=== PATIENT | female | born 1935 | race American Indian/Alaskan Native ===

== ENCOUNTER 2020-11-09 16:46 | Inpatient (IN) | payer MEDICARE ==
[2020-11-09] MEDS ORDERED: LIP THERAPY VASELINE TP PRN (17:08)
[2020-11-09] MEDS ORDERED: MINERAL OIL/PETROLATUM, WHITE OPHTH OINT 3.5 GM OU PRN (17:08)
--- NOTE | 2020-11-09 17:14 | Emergency Department Report ---
ED CPR HPI - General Chief Complaint: Cardiac Arrest/CPR Stated Complaint: CARDIAC ARREST Time Seen by Provider: 11/09/20 17:06 Source: EMS - History of Present Illness Initial Comments: Patient is 84 years old female with history of hypertension, chronic kidney disease and chronic right bundle branch block and arthritis. Patient brought to the emergency room via EMS from a [facility] office for evaluation of shortness of breath and difficulty breathing. EMS stated that patient was talking to them but she is really short of breath. EMS stated that upon arrival to the ER patient became unresponsive and started positive pressure ventilation on her. Upon arrival to the ER, I checked patient pulse and there is no pulse. CODE BLUE immediately initiated. ACLS protocol initiated and patient intubated by me. Patient received multiple rounds of CPR, epinephrine, calcium chloride and bicarb. Blood glucose was 158 by EMS. Patient regained her pulse. For further information please refer to code sheets. Labs reviewed and showed elevated lactic acid. EKG showed A. fib with heart rate of 109. CT brain is unremarkable. D-dimer is more than 10,000. CT brain is negative for acute finding. CTA chest showed bilateral segmental and subsegmental emboli with a right heart strain. I discussed the patient with Dr. Delong, vascular on-call. Dr. Delong reviewed images and stated that he will take the patient to the cardiac cath for direct thrombolytic. I discussed the patient with Dr. Godwin, he agreed to admit the patient to medical service for further management. Complaint: stopped breathing Bystander CPR Performed: No Initial Findings in the Field: unresponsive ROSC in the Field: No Associated Injuries: No Associated Symptoms: shortness of breath - Related Data Allergies Allergy/AdvReac Type Severity Reaction Status Date / Time No Known Allergies Allergy Verified 11/09/20 17:19 ED Review of Systems ROS: Stated complaint: CARDIAC ARREST Other details as noted in HPI Comment: Unobtainable due to pts medical conditions ED Physical Exam - General General appearance: other (Unresponsive, CPR in progress.) - Head Head exam: Present: atraumatic, normocephalic, normal inspection - Eye Pupils: Present: other (4 mm, dilated and slightly reactive to light.) - ENT ENT exam: Present: normal exam, mucous membranes moist - Neck Neck exam: Present: normal inspection - Respiratory Respiratory exam: Present: other (No spontaneous respiration.) - Cardiovascular Cardiovascular Exam: Present: other (No spontaneous heart tone.) - GI/Abdominal GI/Abdominal exam: Present: soft, normal bowel sounds. Absent: distended - Extremities Exam Extremities exam: Present: normal inspection - Neurological Exam Neurological exam: Present: other (Intubated.) - Skin Skin exam: Present: warm ED Course Vital Signs 11/09/20 11/09/20 11/09/20 17:14 17:16 17:30 Pulse Rate 121 H 104 H 68 Respiratory 10 L 14 18 Rate Blood Pressure 108/79 109/61 O2 Sat by Pulse Oximetry 11/09/20 11/09/20 11/09/20 17:37 18:16 18:31 Pulse Rate 70 109 H Respiratory 38 H Rate Blood Pressure 98/52 108/79 82/41 O2 Sat by Pulse 95 100 100 Oximetry 11/09/20 11/09/20 11/09/20 18:45 19:01 19:15 Pulse Rate 103 H 114 H 117 H Respiratory 26 H 24 25 H Rate Blood Pressure 108/66 96/59 110/55 O2 Sat by Pulse 100 100 100 Oximetry 11/09/20 11/09/20 11/09/20 19:31 19:45 19:59 Pulse Rate 113 H 114 H 72 Respiratory 23 29 H Rate Blood Pressure 100/58 114/51 95/51 O2 Sat by Pulse 100 100 100 Oximetry 11/09/20 11/09/20 11/09/20 20:01 20:15 20:31 Pulse Rate 113 H 123 H 112 H Respiratory 23 38 H 21 Rate Blood Pressure 105/61 105/35 102/53 O2 Sat by Pulse 100 100 100 Oximetry 11/09/20 11/09/20 11/09/20 20:45 21:01 21:15 Pulse Rate 116 H 110 H 107 H Respiratory 18 19 25 H Rate Blood Pressure 99/47 89/47 98/43 O2 Sat by Pulse 100 100 100 Oximetry - Reevaluation(s) Reevaluation #1: 11/09/20 17:18 Patient intubated. EKG showed atrial fibrillation with heart rate of 102. Oxygen saturations 100%. Blood pressure is 108/78. We will continue to monitor. Reevaluation #2: 11/09/20 17:59 Patient started waking up and fighting. Restraint had to be applied. Patient blood pressure still on the 74/42. Patient is receiving both Levophed and dopamine. Patient is getting her propofol for sedation. - Central Line Placement Right Femoral Consent Obtained: emergent situation Time Out Performed: Yes Patient Placed on Monitor/Pulse Ox: Yes MD Prep: mask, gown, gloves Central Line Prep: Povidone-Iodine 1%, Chlorhexidine scrub, sterile drapes applied Local Anesthesia Used: Lidocaine 2% Central Line Lumen Inserted: triple Reason for Insertion: Volume Resuscitation Central Line Position: good blood return, all ports aspirated, flus, sutured in place with 2-0 Dressing Applied: Tegaderm, sterile gauze/tape Patient Tolerated Procedure: well, no complications Complications: none - Intubation Time Out Performed: Yes Laryngoscope: Macario Size: 4 ET Tube Size: 7 Tube Secured Location: teeth Tube Placement Confirmation: visualized tube passing t, equal breath sounds bilat, no breath sounds over epi, confirmation by capnometr Patient Tolerated Procedure: well, no complications Intubation Complications: none ED Medical Decision Making - Lab Data Result diagrams: 11/09/20 17:24 11/09/20 17:24 - EKG Data -: EKG Interpreted by Me Rate: tachycardia - EKG Data Interpretation: no acute changes - Radiology Data Radiology results: report reviewed - Medical Decision Making Patient is 84 years old female with history of hypertension, chronic kidney disease and chronic right bundle branch block and arthritis. Patient brought to the emergency room via EMS from a [facility] office for evaluation of shortness of breath and difficulty breathing. EMS stated that patient was talking to them but she is really short of breath. EMS stated that upon arrival to the ER patient became unresponsive and started positive pressure ventilation on her. Upon arrival to the ER, I checked patient pulse and there is no pulse. CODE BLUE immediately initiated. ACLS protocol initiated and patient intubated by me. Patient received multiple rounds of CPR, epinephrine, calcium chloride and bicarb. Blood glucose was 158 by EMS. Patient regained her pulse. For further information please refer to code sheets. Labs reviewed and showed elevated lactic acid. EKG showed A. fib with heart rate of 109. CT brain is unremarkable. D-dimer is more than 10,000. CT brain is negative for acute finding. CTA chest showed bilateral segmental and subs egmental emboli with a right heart strain. I discussed the patient with Dr. Delong, vascular on-call. Dr. Delong reviewed images and stated that he will take the patient to the cardiac cath for direct thrombolytic. I discussed the patient with Dr. Caldwell from [facility], he advised to ke ep the patient in [facility] for further management. I discussed the patient with Dr. Godwin, he agreed to admit the patient to medical service for further management. Critical Care Time: Yes Critical care time in (mins) excluding proc time.: 60 Critical care attestation.: If time is entered above; I have spent that time in minutes in the direct care of this critically ill patient, excluding procedure time. ED Disposition Clinical Impression: Cardiopulmonary arrest, Acute pulmonary embolism with acute cor pulmonale, Bilateral pneumonia Disposition: ADMITTED INPATIENT Is pt being admited?: No Condition: Stable Instructions: Bacterial Pneumonia (ED) Referrals: JAVIER LOPEZ [Other] - 3-5 Days
[2020-11-09] MEDS ORDERED: DOPamine/D5W 800 MG/250 ML 800 MG/250 ML BAG IV ONE ×2 (17:31→17:48)
[2020-11-09] MEDS ORDERED: NORepinephrine/NS 4 MG-250 ML 4 MG/250 ML BAG IV ONE (17:41)
[2020-11-09] MEDS ORDERED: SODIUM CHLORIDE 0.9% 1000 ML 1,000 ML IV ONE ×2 (17:47→20:51)
[2020-11-09 17:56] LABS: Basophils # (Auto) 0.1 K/mm3 (0.0-0.1); Basophils % (Auto) 1.3 % (0.0-1.8); Eosinophils # (Auto) 0.1 K/mm3 (0.0-0.4); Eosinophils % (Auto) 1.1 % (0.0-4.3); Hemoglobin 10.3 gm/dl (10.1-14.3); Lymphocytes # (Auto) 3.7 K/mm3 (1.2-5.4); Lymphocytes % (Auto) 54.6 % (13.4-35.0); Mean Corpuscular HGB Conc 32 % (30-34); Mean Corpuscular Volume 97 fl (79-97); Monocytes # (Auto) 0.3 K/mm3 (0.0-0.8); Monocytes % (Auto) 4.5 % (0.0-7.3); Platelet Count 100 K/mm3 (140-440); Red Blood Count 3.29 M/mm3 (3.65-5.03)
[2020-11-09] MEDS ORDERED: fentaNYL DRIP Premix 2,000 MCG/100 ML BAG IV ONE (18:00)
[2020-11-09 18:04] LABS: Calcium 9.4 mg/dL (8.4-10.2)
[2020-11-09 18:05] LABS: Alanine Aminotransferase 273 units/L (7-56); Albumin 2.8 g/dL (3.9-5); Bilirubin,Direct < 0.2 mg/dL (0-0.2)
[2020-11-09 18:11] LABS: INR 1.64 (0.87-1.13)
[2020-11-09 18:13] LABS: Partial Thromboplastin Time 49.2 Sec. (24.2-36.6)
[2020-11-09 18:19] LABS: Chol/HDL Ratio 4.06 %
[2020-11-09] MEDS ORDERED: INSULIN REGULAR, HUMAN 100 UNITS/1 ML IV ONE (18:21)
[2020-11-09] MEDS ORDERED: SODIUM BICARB 8.4% 50 MEQ/50 ML SYRINGE IV ONE (19:06)
[2020-11-09] MEDS ORDERED: POTASSIUM CHLORIDE 10 MEQ 10 MEQ/100 ML BAG IV SCH (19:30)
[2020-11-09 19:33] LABS: Bacteria,Urine 1+ /HPF (Negative); Bilirubin,Urine NEG (Negative); Blood,Urine MOD (Negative); Color,Urine Straw (Yellow); Protein,Urine <15 mg/dL mg/dL (Negative); Urobilinogen,Urine < 2.0 mg/dL (<2.0)
[2020-11-09 19:39] LABS: Amphetamine Screen,Urine Negative; Benzodiazepines Screen,Urine Negative; Cannabinoid Screen,Urine Negative; Cocaine Screen,Urine Negative; Methadone Screen,Urine Negative; Opiate Screen,Urine Negative
[2020-11-09 20:45] LABS: Creatine Kinase MB 14.2 ng/mL (0.0-4.0)
[2020-11-09] MEDS ORDERED: FAMOTIDINE 20 MG/2 ML INJ IV SCH (22:00)
--- NOTE | 2020-11-09 22:01 | Cat Scan Report ---
CT HEAD WITHOUT CONTRAST INDICATION / CLINICAL INFORMATION: AMS. TECHNIQUE: All CT scans at this location are performed using CT dose reduction for ALARA by means of automated exposure control. COMPARISON: None available. FINDINGS: BRAIN PARENCHYMA: No acute intracranial hemorrhage. No evidence of recent infarct. No mass effect or midline shift. White matter chronic small vessel ischemic changes. VENTRICULAR SYSTEM/EXTRA-AXIAL SPACES: Ventricles are normal for age. No extra-axial fluid collection is identified. There is a focal ovoid extra-axial soft tissue density along the anterior right front al lobe near the falx, likely reflecting meningioma. ORBITS: Normal as visualized. SKELETAL SYSTEM/SOFT TISSUES: Normal bones and soft tissues. PARANASAL SINUSES/MASTOID AIR CELLS: No significant abnormality. ADDITIONAL FINDINGS: None. IMPRESSION: 1. No acute intracranial abnormality. 2. Probable meningioma along the right anterior frontal lobe. Signer Name: Rowdy Nguyen MD Signed: 11/09/2020 9:56 PM Workstation Name: [id number]
--- NOTE | 2020-11-09 22:16 | Cat Scan Report ---
CT abdomen pelvis w con INDICATION / CLINICAL INFORMATION: abdominal pain. TECHNIQUE: Axial CT images were obtained through the abdomen and pelvis after 100 cc of Omnipaque [address] scans at this location are performed using CT dose reduction for ALARA by means of automated exposure control. COMPARISON: None available. FINDINGS: LOWER CHEST: Detailed separately LIVER: No significant abnormality GALLBLADDER/BILIARY TREE: The wall of the gallbladder is calcified at the fundus with large gallstone at the neck of the gallbladder. There is inflammatory stranding and fluid about the gallbladder valentin a. The common bile duct is dilated, measuring 1 cm. No discrete biliary duct stone or mass identified . PANCREAS: There is mild peripancreatic inflammatory stranding about the pancreatic head and neck. No organized collection. SPLEEN: No significant abnormality ADRENALS: No significant abnormality KIDNEYS / URETER: No significant abnormality URINARY BLADDER: Bladder is partially decompressed, though grossly unremarkable. REPRODUCTIVE ORGANS: Calcified uterine fibroids. STOMACH / BOWEL: Scattered nondilated fluid-filled small bowel seen throughout the abdomen and pelvis , suggestive of enteritis. There is no evidence of bowel obstruction. Scattered colonic diverticula w ithout evidence of diverticulitis. Moderate stool distends the rectal vault without wall thickening. The appendix is normal in caliber. LYMPH NODES: No significant adenopathy. VASCULATURE: Right iliac vein catheter terminates in the external iliac vein. OTHER: No free air, free fluid, or focal fluid collection is identified. Enteric catheter terminates in the stomach. SKELETAL SYSTEM: No acute osseous findings. IMPRESSION: 1. Scattered nondilated fluid-filled small bowel in the abdomen, consistent with infectious or inflam matory enteritis. 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 Mild inflammatory changes about the gallbladder may reflect cholecystitis. Recommend correlation with right upper quadrant ultrasound. No nspecific mild bile duct dilatation without discrete obstructing stone or mass. Further evaluation wi th MRI/MRCP may be helpful. 3. Moderate stool distends the rectal vault without wall thickening. Correlate for fecal impaction. 4. Other incidental findings as above. Signer Name: Rowdy Nguyen MD Signed: 11/09/2020 10:11 PM Workstation Name: [id number]
--- NOTE | 2020-11-09 22:17 | Cat Scan Report ---
CTA CHEST WITH CONTRAST INDICATION / CLINICAL INFORMATION: CPR, ELEVATED D-DIMER. TECHNIQUE: Axial CT images were obtained through the chest after injection of 100 cc Omnipaque 350 IV contrast. 3 plane MIP and/or 3D reconstructions were produced. All CT scans at this location are per formed using CT dose reduction for ALARA by means of automated exposure control. COMPARISON: None available. FINDINGS: PULMONARY ARTERIES: Acute bilateral segmental and subsegmental pulmonary emboli are present. THORACIC AORTA: No significant abnormality. HEART: There is cardiac enlargement. No pericardial effusion. There is evidence of right heart failur e. RV/LV ratio is increased. ADENOPATHY: Mediastinal lymph nodes are likely reactive. LUNGS/PLEURA: Trace right pleural effusion. There are prominent airspace consolidation involving bila teral lung bases with patchy groundglass opacities and consolidation involving the right middle lobe and right upper lobe. No pneumothorax. ADDITIONAL FINDINGS: Endotracheal tube terminates above the cherie. UPPER ABDOMEN: Detailed separately. SKELETAL STRUCTURES: No significant osseous abnormality. IMPRESSION: 1. Acute bilateral segmental and subsegmental pulmonary emboli with evidence of right heart failure. 2. Bibasilar airspace consolidation and trace right pleural effusion, compatible with pneumonia. 3. Endotracheal tube terminates above the cherie. Findings were discussed with Dr. Junior by phone on 11/09/2020 at 9:12 PM Signer Name: Rowdy Nguyen MD Signed: 11/09/2020 10:12 PM Workstation Name: [id number]
[2020-11-09] MEDS ORDERED: PIPERACILLIN/TAZOBACTAM 3.375 3.375 GM/50 ML BAG IV ONE (22:25)
[2020-11-09] MEDS ORDERED: HEPARIN 10,000 UNITS/10 ML VIAL IV ONE (22:26)
[2020-11-09] MEDS ORDERED: fentaNYL 100 MCG/2 ML INJ IV PRN (22:37)
[2020-11-09] MEDS ORDERED: HEPARIN/ 0.45% NACL DRIP 25,000 UNIT/500 ML BAG IV SCH (23:00)
--- NOTE | 2020-11-09 23:06 | XRay Report ---
CHEST 1 VIEW INDICATION / CLINICAL INFORMATION: chest pain. FINDINGS: SUPPORT DEVICES: The endotracheal tube terminates about 5 cm above the cherie and the esophagogastric tube terminates in the region of the stomach. HEART / MEDIASTINUM: The cardiomediastinal silhouette has not significantly changed in the interim. LUNGS / PLEURA: Faint ill-defined bibasilar opacities no pneumothorax. Signer Name: Leobardo Holloway MD Signed: 11/09/2020 11:02 PM Workstation Name: [id number]
[2020-11-09] MEDS ORDERED: MORPHINE 2 MG/1 ML INJ IV PRN (23:07)
[2020-11-09] MEDS ORDERED: ONDANSETRON 4 MG/2 ML INJ IV PRN (23:07)
[2020-11-09] MEDS ORDERED: MORPHINE 4 MG/1 ML INJ IV PRN ×2 (23:07→23:59)
[2020-11-09] MEDS ORDERED: ACETAMINOPHEN 650 MG RECT SUPP PR PRN (23:07)
[2020-11-09] MEDS ORDERED: MAGNESIUM HYDROXIDE (MOM) ORAL LIQD UDC PO PRN (23:07)
[2020-11-09] MEDS: fentaNYL DRIP Premix 2,000 MCG/100 ML BAG IV SCH (23:08)
[2020-11-09] MEDS ORDERED: SODIUM CHLORIDE 0.9% 1000 ML 1,000 ML IV SCH ×2 (23:15→23:45)
--- NOTE | 2020-11-09 23:20 | History and Physical Report ---
History of Present Illness Date of examination: 11/09/20 Date of admission: 11/09/2020 Chief complaint: Difficulty Breathing History of present illness: 84-year-old female with known history of hypertension, chronic kidney disease, chronic right bundle branch block and arthritis was brought into the emergency room today via EMS from a [facility] office for evaluation of difficulty breathing and shortness of breath. [facility] and a positive pressure ventilation was started. Patient became pulseless and a CODE BLUE was initiated. She received multiple rounds of epinephrine, calcium chloride and sodium bicarb. There was return of spontaneous circulation. Blood glucose was said to be 158. Most of the history was gotten from the ER staff as patient is already intubated and sedated. Work-up in the emergency room today reveals D-dimer of greater than 10,000, elevated lactic acid. CT angiogram shows bilateral segmental and subsegmental emboli with right heart strain. There is also bibasilar airspace consolidation and trace right pleural effusion compatible with pneumonia. Vascular surgeon Dr. Delong was consulted by the ER physician and plan was to have patient transferred to the [facility] for possible thrombolytics. Past History Past Medical History: arthritis, hypertension, renal failure, other (Chronic Right Bundle Branch Block) Past Surgical History: No surgical history Social history: no significant social history Medications and Allergies Allergies Allergy/AdvReac Type Severity Reaction Status Date / Time No Known Allergies Allergy Verified 11/09/20 17:19 Active Meds: Active Medications Acetaminophen (Acetaminophen 650 Mg Rect Supp) 650 mg AK Q6H PRN PRN Reason: Pain MILD(1-3)/Fever >100.5/REYES Famotidine (Famotidine 20 Mg/2 Ml Inj) 20 mg IV BID [facility] Last Admin: 11/09/20 22:47 Dose: 20 mg Documented by: Fentanyl (Fentanyl 100 Mcg/2 Ml Inj) 50 mcg IV Q10MIN PRN PRN Reason: ANALGESIA Hydrophilic Ointment (Lip Therapy Vaseline) 1 applic TP Q2H PRN PRN Reason: Dry Lips Propofol (Diprivan 10 Mg/Ml) 1,000 mg in 100 mls @ 2.245 mls/hr IV TITR MELONY; Protocol Last Admin: 11/09/20 20:06 Dose: 20 mcg/kg/min, 8.981 mls/hr Documented by: NORepinephrine/NS 8 MG-250 ML (Norepinephrine/Ns 8 Mg-250 Ml (Double Conc)) 8 mg in 250 mls @ 3.75 mls/hr IV TITRATE MELONY; Protocol Dopamine HCl/Dextrose (Intropin Drip 800 Mg/D5w 250 Ml) 800 mg in 250 mls @ 2.807 mls/hr IV TITR ONE; Protocol Stop: 11/13/20 10:51 Last Admin: 11/09/20 22:12 Dose: 2 mcg/kg/min, 2.807 mls/hr Documented by: Heparin Sodium/Sodium Chloride (Heparin/ 0.45% Nacl-25,000 Unit/500 Ml) 25,000 unit in 500 mls @ 21 mls/hr IV TITR MELONY; Protocol Last Admin: 11/09/20 23:06 Dose: 1,050 units/hr, 21 mls/hr Documented by: Fentanyl Citrate (Fentanyl Drip Premix) 2,000 mcg in 100 mls @ 11.226 mls/hr IV TITR MELONY; Protocol Last Admin: 11/09/20 23:08 Dose: 3 mcg/kg/hr, 11.226 mls/hr Documented by: Sodium Chloride (Nacl 0.9% 1000 Ml) 1,000 mls @ 75 mls/hr IV DIRECT MELONY Ceftriaxone Sodium (Rocephin/Ns 2 Gm/100 Ml) 2 gm in 100 mls @ 200 mls/hr IV Q24H MELONY; Protocol Azithromycin (Zithromax/Ns) 500 mg in 250 mls @ 250 mls/hr IV Q24H MELONY; Protocol Magnesium Hydroxide (Magnesium Hydroxide (Mom) Oral Liqd Udc) 30 ml PO Q4H PRN PRN Reason: Constipation Morphine Sulfate (Morphine 2 Mg/1 Ml Inj) 2 mg IV Q4H PRN PRN Reason: Pain, Moderate (4-6) Morphine Sulfate (Morphine 4 Mg/1 Ml Inj) 4 mg IV Q4H PRN PRN Reason: Pain , Severe (7-10) Multi-Ingred Cream/Lotion/Oil/Oint (Mineral Oil/Petrolatum, White Ophth Oint 3.5 Gm) 1 applic OU Q4H PRN PRN Reason: Dry Eye(s) Ondansetron HCl (Ondansetron 4 Mg/2 Ml Inj) 4 mg IV Q8H PRN PRN Reason: Nausea And Vomiting Senna/Docusate Sodium (Sennosides/Docusate Sodium 8.6/50 Mg Tab) 1 tab FEEDTUBE BID MELONY Sodium Chloride (Sodium Chloride 0.9% 10 Ml Flush Syringe) 10 ml IV BID MELONY Sodium Chloride (Sodium Chloride 0.9% 10 Ml Flush Syringe) 10 ml IV PRN PRN PRN Reason: LINE FLUSH Review of Systems ROS unobtainable: due to endotracheal tube Exam - Constitutional Vitals: Temp Pulse Resp BP Pulse Ox 107 H 25 H 98/43 100 11/09/20 21:15 11/09/20 21:15 11/09/20 21:15 11/09/20 21:15 General appearance: Present: other (Intubated and Sedated) - EENT Eyes: Present: PERRL, EOM intact. Absent: scleral icterus ENT: hearing intact, clear oral mucosa, dentition normal - Neck Neck: Present: supple, normal ROM - Respiratory Respiratory effort: other (intubated) Respiratory: bilateral: diminished - Cardiovascular Rhythm: regular Heart Sounds: Present: S1 & S2, systolic murmur. Absent: gallop, diastolic murmur, rub, click - Extremities Extremities: no ischemia, pulses intact, pulses symmetrical, No edema, normal temperature, normal color, Full ROM Peripheral Pulses: within normal limits - Abdominal General gastrointestinal: Present: soft, non-tender, non-distended, normal bowel sounds. Absent: mass - Integumentary Integumentary: Present: clear, warm, dry. Absent: rash - Musculoskeletal Musculoskeletal: strength equal bilaterally - Psychiatric Psychiatric: cooperative - Neurologic Neurologic: CNII-XII intact, other (Intubated and Sedated.) HEART Score - HEART Score Troponin: Troponin T 0.553 ng/mL (0.00-0.029) H* D 11/09/20 20:07 Results - Labs CBC & Chem 7: 11/10/20 15:08 11/10/20 04:28 Labs: Abnormal lab results 11/09/20 11/09/20 11/09/20 Range/Units 17:24 17:24 17:24 RBC 3.29 L (3.65-5.03) M/mm3 Plt Count 100 L (140-440) K/mm3 Lymph % (Auto) 54.6 H (13.4-35.0) % Seg Neutrophils % 38.5 L (40.0-70.0) % PT 19.9 H (12.2-14.9) Sec. INR 1.64 H (0.87-1.13) APTT 49.2 H (24.2-36.6) Sec. D-Dimer > 34049 H (0-234) ng/mlDDU ABG pH (7.320-7.450) POC ABG pO2 (83-108) mmHg ABG Sodium (136.0-145.0) mmol/L ABG Glucose (65-95) mg/dL Carboxyhemoglobin (0.5-1.5) Potassium 2.9 L* (3.6-5.0) mmol/L Carbon Dioxide 13 L (22-30) mmol/L Creatinine 1.4 H (0.6-1.2) mg/dL Glucose 391 H (65-100) mg/dL Lactic Acid (0.7-2.0) mmol/L AST (5-40) units/L ALT (7-56) units/L Total Creatine Kinase (30-135) units/L CK-MB (CK-2) 5.0 H (0.0-4.0) ng/mL CK-MB (CK-2) Rel Index 4.8 H (0-4) Troponin T 0.263 H* (0.00-0.029) ng/mL NT-Pro-B Natriuret Pep (0-900) pg/mL Total Protein (6.3-8.2) g/dL Albumin (3.9-5) g/dL Triglycerides 163 H (2-149) mg/dL HDL Cholesterol 29 L (40-59) mg/dL Arterial Blood Glucose (65-95) mg/dL 11/09/20 11/09/20 11/09/20 Range/Units 17:24 18:11 18:21 RBC (3.65-5.03) M/mm3 Plt Count (140-440) K/mm3 Lymph % (Auto) (13.4-35.0) % Seg Neutrophils % (40.0-70.0) % PT (12.2-14.9) Sec. INR (0.87-1.13) APTT (24.2-36.6) Sec. D-Dimer (0-234) ng/mlDDU ABG pH 7.053 L (7.320-7.450) POC ABG pO2 159.6 H (83-108) mmHg ABG Sodium 135.1 L (136.0-145.0) mmol/L ABG Glucose 421 H (65-95) mg/dL Carboxyhemoglobin 0.3 L (0.5-1.5) Potassium (3.6-5.0) mmol/L Carbon Dioxide (22-30) mmol/L Creatinine (0.6-1.2) mg/dL Glucose (65-100) mg/dL Lactic Acid 11.40 H* (0.7-2.0) mmol/L AST 312 H (5-40) units/L ALT 273 H (7-56) units/L Total Creatine Kinase (30-135) units/L CK-MB (CK-2) (0.0-4.0) ng/mL CK-MB (CK-2) Rel Index (0-4) Troponin T (0.00-0.029) ng/mL NT-Pro-B Natriuret Pep 1169 H (0-900) pg/mL Total Protein 5.2 L (6.3-8.2) g/dL Albumin 2.8 L (3.9-5) g/dL Triglycerides (2-149) mg/dL HDL Cholesterol (40-59) mg/dL Arterial Blood Glucose 421 H (65-95) mg/dL 11/09/20 11/09/20 Range/Units 20:07 20:07 RBC (3.65-5.03) M/mm3 Plt Count (140-440) K/mm3 Lymph % (Auto) (13.4-35.0) % Seg Neutrophils % (40.0-70.0) % PT (12.2-14.9) Sec. INR (0.87-1.13) APTT (24.2-36.6) Sec. D-Dimer (0-234) ng/mlDDU ABG pH (7.320-7.450) POC ABG pO2 (83-108) mmHg ABG Sodium (136.0-145.0) mmol/L ABG Glucose (65-95) mg/dL Carboxyhemoglobin (0.5-1.5) Potassium (3.6-5.0) mmol/L Carbon Dioxide (22-30) mmol/L Creatinine (0.6-1.2) mg/dL Glucose (65-100) mg/dL Lactic Acid 9.00 H* (0.7-2.0) mmol/L AST (5-40) units/L ALT (7-56) units/L Total Creatine Kinase 340 H (30-135) units/L CK-MB (CK-2) 14.2 H (0.0-4.0) ng/mL CK-MB (CK-2) Rel Index 4.1 H (0-4) Troponin T 0.553 H* D (0.00-0.029) ng/mL NT-Pro-B Natriuret Pep (0-900) pg/mL Total Protein (6.3-8.2) g/dL Albumin (3.9-5) g/dL Triglycerides (2-149) mg/dL HDL Cholesterol (40-59) mg/dL Arterial Blood Glucose (65-95) mg/dL Assessment and Plan - Patient Problems (1) Acute pulmonary embolism with acute cor pulmonale Current Visit: Yes Status: Acute Qualifiers: Pulmonary embolism type: saddle Qualified Code(s): I26.02 - Saddle embolus of pulmonary artery with acute cor pulmonale Plan to address problem: Patient started on anticoagulation with heparin. However patient is being taken to the [facility] for possible thrombolytics. Vascular surgeon following. (2) Bilateral pneumonia Current Visit: Yes Status: Acute Plan to address problem: Patient placed on empiric IV antibiotics. Will await culture results. (3) Cardiopulmonary arrest Current Visit: Yes Status: Acute Plan to address problem: Possibly secondary to bilateral pulmonary embolism and or pneumonia. Patient successfully resuscitated. Currently intubated and sedated (4) Hypokalemia Current Visit: Yes Status: Acute Plan to address problem: We will replete potassium and monitor chemistry. (5) Acute kidney injury Current Visit: Yes Status: Acute Plan to address problem: Possibly prerenal. We will continue IV fluid hydration and monitor BUN and creatinine. Consult to be placed to nephrology as needed. (6) Acute respiratory failure with hypoxia Current Visit: Yes Status: Acute Plan to address problem: Secondary to bilateral PE versus underlying pneumonia. Currently intubated. Await further evaluation by eeler. (7) Metabolic acidosis Current Visit: Yes Status: Acute Plan to address problem: Placed on sodium bicarb and IV fluid Will monitor chemistry. (8) DVT prophylaxis Current Visit: Yes Status: Acute Plan to address problem: Patient currently on anticoagulation. (9) Full code status Current Visit: Yes Status: Acute Plan to address problem: Patient is full code.
[2020-11-09] MEDS ORDERED: HEPARIN/NS 5000 UNIT/500ML 1,000 ML IR ONE (23:40)
[2020-11-09] MEDS ORDERED: ALTEPLASE 2 MG INJ ONE ×2 (23:41→23:43)
[2020-11-09] MEDS ORDERED: LIDOCAINE (2%) 20 MG/1 ML VIAL 20 ML MDV INFILTRATI ONE (23:41)
[2020-11-09] MEDS ORDERED: SODIUM CHLORIDE 0.9% 1000 ML 2,000 ML ONE (23:44)
[2020-11-09] MEDS ORDERED: SODIUM CHLORIDE 0.9% 1000 ML 1,000 ML SHEATH SCH ×2 (23:45)
[2020-11-09] MEDS ORDERED: HEPARIN/ 0.45% NACL DRIP 25,000 UNIT/500 ML BAG SHEATH SCH ×2 (23:45)
[2020-11-09] MEDS ORDERED: SODIUM CHLORIDE 0.9% 1000 ML 1,000 ML EKOSCLUMEN SCH ×2 (23:45)
[2020-11-09 23:55] LABS: Hematocrit 36.2 % (30.3-42.9); Hemoglobin 12.2 gm/dl (10.1-14.3)
[2020-11-09 23:56] LABS: Creatine Kinase MB 18.4 ng/mL (0.0-4.0)
[2020-11-09] MEDS ORDERED: ALTEPLASE 10 MG in SODIUM CHLORIDE 0.9% 250ML 250 ML EKOSDLUMEN STA (23:59)
[2020-11-09] MEDS ORDERED: ACETAMINOPHEN 325 MG TAB PO PRN (23:59)
[2020-11-09] MEDS ORDERED: ALTEPLASE 10 MG in SODIUM CHLORIDE 0.9% 250ML 250 ML IV STA (23:59)
--- NOTE | 2020-11-10 00:07 | Consultation ---
History of Present Illness - Reason for Consult Consult date: 11/10/20 Massive pulmonary embolism with right heart failure - History of Present Illness Patient with a history by report of chest pain and shortness of breath who was transferred to [facility]. On presentation, the patient went into full arrest and subsequently spontaneous return of circulation following CODE BLUE was obtained. The patient is currently intubated and on multiple pressors. A CT scan of the chest was performed which demonstrates significant right heart strain associated with patient's troponin leak and other labs. She has segmental and subsegmental pulmonary emboli bilaterally. Past History Past Medical History: arthritis, hypertension, renal failure, other (Chronic Right Bundle Branch Block) Past Surgical History: No surgical history Social history: no significant social history Medications and Allergies Allergies Allergy/AdvReac Type Severity Reaction Status Date / Time No Known Allergies Allergy Verified 11/09/20 17:19 Active Meds: Active Medications Acetaminophen (Acetaminophen 650 Mg Rect Supp) 650 mg FL Q6H PRN PRN Reason: Pain MILD(1-3)/Fever >100.5/REYES Acetaminophen (Acetaminophen 325 Mg Tab) 650 mg PO Q6H PRN PRN Reason: Pain, Mild (1-3) Hydrocodone Bitart/Acetaminophen (Hydrocodone/Acetaminophen 5-325 Mg Tab) 2 each PO Q6H PRN PRN Reason: Pain, Moderate (4-6) Famotidine (Famotidine 20 Mg/2 Ml Inj) 20 mg IV BID MELONY Last Admin: 11/09/20 22:47 Dose: 20 mg Documented by: Fentanyl (Fentanyl 100 Mcg/2 Ml Inj) 50 mcg IV Q10MIN PRN PRN Reason: ANALGESIA Hydrophilic Ointment (Lip Therapy Vaseline) 1 applic TP Q2H PRN PRN Reason: Dry Lips Propofol (Diprivan 10 Mg/Ml) 1,000 mg in 100 mls @ 2.245 mls/hr IV TITR MELONY; Protocol Last Admin: 11/09/20 20:06 Dose: 20 mcg/kg/min, 8.981 mls/hr Documented by: NORepinephrine/NS 8 MG-250 ML (Norepinephrine/Ns 8 Mg-250 Ml (Double Conc)) 8 mg in 250 mls @ 3.75 mls/hr IV TITRATE MELONY; Protocol Dopamine HCl/Dextrose (Intropin Drip 800 Mg/D5w 250 Ml) 800 mg in 250 mls @ 2.807 mls/hr IV TITR ONE; Protocol Stop: 11/13/20 10:51 Last Admin: 11/09/20 22:12 Dose: 2 mcg/kg/min, 2.807 mls/hr Documented by: Fentanyl Citrate (Fentanyl Drip Premix) 2,000 mcg in 100 mls @ 11.226 mls/hr IV TITR MELONY; Protocol Last Admin: 11/09/20 23:08 Dose: 3 mcg/kg/hr, 11.226 mls/hr Documented by: Sodium Chloride (Nacl 0.9% 1000 Ml) 1,000 mls @ 75 mls/hr IV DIRECT MELONY Ceftriaxone Sodium (Rocephin/Ns 2 Gm/100 Ml) 2 gm in 100 mls @ 200 mls/hr IV Q24HR MELONY; Protocol Azithromycin (Zithromax/Ns) 500 mg in 250 mls @ 250 mls/hr IV Q24HR MELONY; Prot ocol Potassium Chloride (Kcl 20meq/100ml) 20 meq in 100 mls @ 100 mls/hr IV ONCE ONE Stop: 11/10/20 01:29 Sodium Chloride (Nacl 0.9% 1000 Ml) 1,000 mls @ 30 mls/hr IV DIRECT MELONY Alteplase, Recombinant 10 mg/ (Sodium Chloride) 250 mls @ 10 mls/hr EKOSDLUMEN DIRECT STA Stop: 11/11/20 00:58 Alteplase, Recombinant 10 mg/ (Sodium Chloride) 250 mls @ 10 mls/hr IV DIRECT STA Stop: 11/11/20 00:58 Sodium Chloride (Nacl 0.9% 1000 Ml) 1,000 mls @ 30 mls/hr SHEATH DIRECT MELONY Sodium Chloride (Nacl 0.9% 1000 Ml) 1,000 mls @ 35 mls/hr EKOSCLUMEN DIRECT MELONY Sodium Chloride (Nacl 0.9% 1000 Ml) 1,000 mls @ 30 mls/hr SHEATH DIRECT MELONY Sodium Chloride (Nacl 0.9% 1000 Ml) 1,000 mls @ 35 mls/hr EKOSCLUMEN DIRECT MELONY Heparin Sodium/Sodium Chloride (Heparin/ 0.45% Nacl-25,000 Unit/500 Ml) 25,000 unit in 500 mls @ 10 mls/hr SHEATH DIRECT MELONY; Protocol Heparin Sodium/Sodium Chloride (Heparin/ 0.45% Nacl-25,000 Unit/500 Ml) 25,000 unit in 500 mls @ 10 mls/hr SHEATH DIRECT MELONY; Protocol Magnesium Hydroxide (Magnesium Hydroxide (Mom) Oral Liqd Udc) 30 ml PO Q4H PRN PRN Reason: Constipation Morphine Sulfate (Morphine 2 Mg/1 Ml Inj) 2 mg IV Q4H PRN PRN Reason: Pain, Moderate (4-6) Morphine Sulfate (Morphine 4 Mg/1 Ml Inj) 4 mg IV Q4H PRN PRN Reason: Pain , Severe (7-10) Morphine Sulfate (Morphine 4 Mg/1 Ml Inj) 4 mg IV Q4H PRN PRN Reason: Pain , Severe (7-10) Multi-Ingred Cream/Lotion/Oil/Oint (Mineral Oil/Petrolatum, White Ophth Oint 3.5 Gm) 1 applic OU Q4H PRN PRN Reason: Dry Eye(s) Ondansetron HCl (Ondansetron 4 Mg/2 Ml Inj) 4 mg IV Q8H PRN PRN Reason: Nausea And Vomiting Senna/Docusate Sodium (Sennosides/Docusate Sodium 8.6/50 Mg Tab) 1 tab FEEDTUBE BID MELONY Sodium Chloride (Sodium Chloride 0.9% 10 Ml Flush Syringe) 10 ml IV BID MELONY Sodium Chloride (Sodium Chloride 0.9% 10 Ml Flush Syringe) 10 ml IV PRN PRN PRN Reason: LINE FLUSH Review of Systems ROS unobtainable: due to endotracheal tube Exam - Constitutional Vitals: Temp Pulse Resp BP Pulse Ox 104 H 18 100/61 100 11/09/20 23:15 11/09/20 23:15 11/09/20 23:45 11/09/20 23:45 General appearance: Present: other (Intubated) Results - Labs CBC & Chem 7: 11/09/20 23:05 11/09/20 17:24 Labs: Abnormal lab results 11/09/20 11/09/20 11/09/20 Range/Units 17:24 17:24 17:24 RBC 3.29 L (3.65-5.03) M/mm3 Plt Count 100 L (140-440) K/mm3 Lymph % (Auto) 54.6 H (13.4-35.0) % Seg Neutrophils % 38.5 L (40.0-70.0) % PT 19.9 H (12.2-14.9) Sec. INR 1.64 H (0.87-1.13) APTT 49.2 H (24.2-36.6) Sec. D-Dimer > 96276 H (0-234) ng/mlDDU ABG pH (7.320-7.450) POC ABG pO2 (83-108) mmHg ABG Sodium (136.0-145.0) mmol/L ABG Glucose (65-95) mg/dL Carboxyhemoglobin (0.5-1.5) Potassium 2.9 L* (3.6-5.0) mmol/L Carbon Dioxide 13 L (22-30) mmol/L Creatinine 1.4 H (0.6-1.2) mg/dL Glucose 391 H (65-100) mg/dL Lactic Acid (0.7-2.0) mmol/L AST (5-40) units/L ALT (7-56) units/L Total Creatine Kinase (30-135) units/L CK-MB (CK-2) 5.0 H (0.0-4.0) ng/mL CK-MB (CK-2) Rel Index 4.8 H (0-4) Troponin T 0.263 H* (0.00-0.029) ng/mL NT-Pro-B Natriuret Pep (0-900) pg/mL Total Protein (6.3-8.2) g/dL Albumin (3.9-5) g/dL Triglycerides 163 H (2-149) mg/dL HDL Cholesterol 29 L (40-59) mg/dL Arterial Blood Glucose (65-95) mg/dL 11/09/20 11/09/20 11/09/20 Range/Units 17:24 18:11 18:21 RBC (3.65-5.03) M/mm3 Plt Count (140-440) K/mm3 Lymph % (Auto) (13.4-35.0) % Seg Neutrophils % (40.0-70.0) % PT (12.2-14.9) Sec. INR (0.87-1.13) APTT (24.2-36.6) Sec. D-Dimer (0-234) ng/mlDDU ABG pH 7.053 L (7.320-7.450) POC ABG pO2 159.6 H (83-108) mmHg ABG Sodium 135.1 L (136.0-145.0) mmol/L ABG Glucose 421 H (65-95) mg/dL Carboxyhemoglobin 0.3 L (0.5-1.5) Potassium (3.6-5.0) mmol/L Carbon Dioxide (22-30) mmol/L Creatinine (0.6-1.2) mg/dL Glucose (65-100) mg/dL Lactic Acid 11.40 H* (0.7-2.0) mmol/L AST 312 H (5-40) units/L ALT 273 H (7-56) units/L Total Creatine Kinase (30-135) units/L CK-MB (CK-2) (0.0-4.0) ng/mL CK-MB (CK-2) Rel Index (0-4) Troponin T (0.00-0.029) ng/mL NT-Pro-B Natriuret Pep 1169 H (0-900) pg/mL Total Protein 5.2 L (6.3-8.2) g/dL Albumin 2.8 L (3.9-5) g/dL Triglycerides (2-149) mg/dL HDL Cholesterol (40-59) mg/dL Arterial Blood Glucose 421 H (65-95) mg/dL 11/09/20 11/09/20 11/09/20 Range/Units 20:07 20:07 23:05 RBC (3.65-5.03) M/mm3 Plt Count (140-440) K/mm3 Lymph % (Auto) (13.4-35.0) % Seg Neutrophils % (40.0-70.0) % PT (12.2-14.9) Sec. INR (0.87-1.13) APTT (24.2-36.6) Sec. D-Dimer (0-234) ng/mlDDU ABG pH (7.320-7.450) POC ABG pO2 (83-108) mmHg ABG Sodium (136.0-145.0) mmol/L ABG Glucose (65-95) mg/dL Carboxyhemoglobin (0.5-1.5) Potassium (3.6-5.0) mmol/L Carbon Dioxide (22-30) mmol/L Creatinine (0.6-1.2) mg/dL Glucose (65-100) mg/dL Lactic Acid 9.00 H* (0.7-2.0) mmol/L AST (5-40) units/L ALT (7-56) units/L Total Creatine Kinase 340 H 449 H (30-135) units/L CK-MB (CK-2) 14.2 H 18.4 H (0.0-4.0) ng/mL CK-MB (CK-2) Rel Index 4.1 H (0-4) Troponin T 0.553 H* D 0.873 H* D (0.00-0.029) ng/mL NT-Pro-B Natriuret Pep (0-900) pg/mL Total Protein (6.3-8.2) g/dL Albumin (3.9-5) g/dL Triglycerides (2-149) mg/dL HDL Cholesterol (40-59) mg/dL Arterial Blood Glucose (65-95) mg/dL - Imaging and Cardiology CT scan - chest: report reviewed, image reviewed Assessment and Plan I discussed patient's care with daughter Eron. Patient has an extremely high risk of mortality at baseline and placement of thrombolytics catheters may decrease this mortality risk somewhat however, it will not remove her risk of sudden secondary to the significant damage her heart is already sustained. Patient's 2 daughters expressed their understanding and wished to proceed. The patient will be brought to the [facility] for placement of bilateral pulmonary EKOS catheters.
[2020-11-10] MEDS ORDERED: WATER FOR INJ Sterile (PF) 10 ML ONE (00:20)
[2020-11-10] MEDS ORDERED: POTASSIUM CHLORIDE 20 MEQ 20 MEQ/100 ML BAG IV ONE (00:30)
[2020-11-10] MEDS ORDERED: HEPARIN/ 0.45% NACL DRIP 50,000 UNIT/1,000 ML BAG ONE (00:31)
[2020-11-10] MEDS: HEPARIN 10,000 UNITS/10 ML VIAL ONE ×2 (00:36→00:37)
--- NOTE | 2020-11-10 00:53 | Operative Report ---
Operative Report Operative Report: Exam: Pulmonary angiography with placement of bilateral pulmonary thrombolytics catheters Clinical indication: Patient with a history of massive PE and right heart failure status post code Date: 11/10/2020 Procedure: Following an explanation of the risks, benefits and alternatives; written informed consent was obtained from the patient's daughter Eron. The patient was brought to the angiographic suite and placed in supine position on the examination table. A right triple-lumen catheter was placed in the right common femoral vein therefore decision was made to evaluate the left. The left common femoral vein is widely patent. The left groin was prepped and draped in the usual sterile fashion. 1% lidocaine was used for anesthesia. Under ultrasound guidance, the left common femoral vein was cannulated proximally using a 7 cm 21-gauge needle. A 0.035 guidewire was advanced centrally. The needle was removed and a second 6 Turkmen sheath placed. Using a 7 cm 18-gauge needle. A 0.035 guidewire was advanced centrally. The needle was removed and a 6 Turkmen sheath placed. Under ultrasound guidance, the left common femoral vein was cannulated distally. A JR4 catheter was advanced over the guidewire through the left sheath. Together the guidewire and catheter were advanced to the right atrium. The guidewire was exchanged for a Glidewire and together the guidewire and catheter advanced through the right atrium, right ventricle and into the pulmonary outflow tract. The guidewire and catheter were then advanced down the left system. The guidewire and catheter were advanced into a left lower lobe pulmonary artery. Minimal angiography was performed to demonstrate appropriate positioning. The Glidewire was exchanged for a long J guidewire and the JR4 catheter removed. A 12 cm infusion length 106 cm total length EKOS thrombolytics catheter was then advanced over the guidewire and positioned to extend from the left main pulmonary artery to the left lower lobe pulmonary artery. The guidewire was removed and the infusion wire placed through the catheter. The JR4 catheter was then advanced over the guidewire through the second sheath. Together the guidewire and catheter were advanced to the right atrium. The guidewire was exchanged for a Glidewire and together the Glidewire and catheter advanced through the right atrium, right ventricle and into the pulmonary outflow tract. The guidewire and catheter were then advanced down the right system. The guidewire and catheter were advanced into a right lower lobe pulmonary artery. Minimal angiography was performed to demonstrate appropriate positioning. The Glidewire was exchanged for a long J guidewire and the JR4 catheter removed. A 12 cm infusion length 106 cm total length EKOS thrombolytics catheter was then advanced over the guidewire and positioned to extend from the right main pulmonary artery to a right lower lobe pulmonary artery. The guidewire was removed and the infusion wire placed through the catheter. A total of 2 mg of TPA was then primed into both thrombolytics catheters. 2000 units of heparin were then primed with both sheaths. The sheaths were then securely fastened to the skin surface using 2-0 Ethilon suture. The catheters were then securely fastened to the sheaths using 2-0 Ethilon suture. Sterile dressings were then applied. The catheters were then placed to the infusion pumps. The patient tolerated the procedure well. There were no immediate post procedure complications. No sedation was utilized secondary to patient's intubated and sedated status. Continuous cardiopulmonary monitoring was utilized under the guidance of radiologic nursing.. Respiratory therapy was in attendance during the entirety of the case. Impression: 1) Bilateral pulmonary EKOS thrombolytics catheters placement using ultrasound and fluoroscopic guidance. 2) Minimal pulmonary angiography for confirmation of catheter positioning.
[2020-11-10 01:14] LABS: INR 1.63 (0.87-1.13)
[2020-11-10] MEDS: NORepinephrine/NS 8 MG-250 ML 8 MG/250 ML INFUS..BTL IV SCH ×3 (02:00→21:30)
[2020-11-10] MEDS: SENNOSIDES/DOCUSATE SODIUM 8.6/50 MG TAB FEEDTUBE SCH ×3 (02:34→21:42)
[2020-11-10 05:00] LABS: Hematocrit 33.8 % (30.3-42.9); Hemoglobin 11.3 gm/dl (10.1-14.3); Mean Corpuscular HGB Conc 33 % (30-34); Mean Corpuscular Volume 92 fl (79-97); Platelet Count 191 K/mm3 (140-440); Red Blood Count 3.66 M/mm3 (3.65-5.03); Red Cell Distribution Width 14.6 % (13.2-15.2)
[2020-11-10 05:12] LABS: Calcium 8.5 mg/dL (8.4-10.2)
[2020-11-10 05:13] LABS: INR 1.69 (0.87-1.13)
[2020-11-10 05:14] LABS: Fibrinogen 221 mg/dl (211-480)
[2020-11-10 05:16] LABS: C-Reactive Protein 3.5 mg/dL (0.00-1.30)
[2020-11-10] MEDS: cefTRIAXone/NS 2 GM/100 ML 2 GM/100 ML BAG IV SCH ×2 (05:29→09:36)
[2020-11-10] MEDS: AZITHROMYCIN/NS 500 MG/250 ML 500 MG/250 ML BAG IV SCH ×2 (05:29→09:36)
[2020-11-10] MEDS ORDERED: SODIUM CHLORIDE 0.9% 250ML 250 ML ONE (05:50)
[2020-11-10 06:48] LABS: Total Cells Counted 100
[2020-11-10 06:49] LABS: Anisocytosis 1+; Platelet Estimate Consistent w Auto
--- NOTE | 2020-11-10 09:15 | Progress Note ---
Assessment and Plan Assessment and plan: 84-year-old female with known history of hypertension, chronic kidney disease, chronic right bundle branch block and arthritis was brought into the emergency room today via EMS from a [facility] office for evaluation of difficulty breathing and shortness of breath. Upon arrival of the patient's to the emergency room patient was said to be unresponsive and a positive pressure ventilation was started. Patient became pulseless and a CODE BLUE was initiated. She received multiple rounds of epinephrine, calcium chloride and sodium bicarb. There was return of spontaneous circulation. Blood glucose was said to be 158. Most of the history was gotten from the ER staff as patient is already intubated and sedated. Work-up in the emergency room today reveals D-dimer of greater than 10,000, el evated lactic acid. CT angiogram shows bilateral segmental and subsegmental emboli with right heart strain. There is also bibasilar airspace consolidation and trace right pleural effusion compatible with pneumonia. Vascular surgeon Dr. Delong was consulted by the ER physician and plan was to have patient transferred to the [facility] for possible thrombolytics. PCP: [place] team of Doctor- (1) Acute pulmonary embolism with acute cor pulmonale Current Visit: Yes Status: Acute Plan to address problem: Patient started on anticoagulation with heparin. However patient is being taken to the [facility] for possible thrombolytics. Vascular surgeon following. (2) Bilateral pneumonia Current Visit: Yes Status: Acute Plan to address problem: Patient placed on empiric IV antibiotics. Will await culture results. (3) Cardiopulmonary arrest Current Visit: Yes Status: Acute Plan to address problem: Possibly secondary to bilateral pulmonary embolism and or pneumonia. Patient successfully resuscitated. Currently intubated and sedated (4) Hypokalemia Current Visit: Yes Status: Acute Plan to address problem: We will replete potassium and monitor chemistry. (5) Atrial fibrillation (6) Thrombocytopenia (7) Severe metabolic acidosis (8) Acute diastolic heart failure (9) Metabolic Acidosis-Severe (10) hypokalemia (11) SIRS (12) DVT prophylaxis Current Visit: Yes Status: Acute Plan to address problem: Patient currently on anticoagulation. (13) Full code status Current Visit: Yes Status: Acute Plan to address problem: Patient is full code. 11/10: Patient seen and examined this morning review of her electrolytes shows some abnormalities with noted worsening renal failure in the setting of hypotension. Noted A. fib on EKG. Patient remains on EKOS system. Will obtain cardiology and nephrology evaluation. Echocardiogram to further evaluate condition of the heart in the setting of her cardiac arrest. Patient remains a PUI Covid testing is pending. Discussed with graphics edit technician this morning may consider changing from dopamine to dobutamine but will await cardiology evaluation. Possible further hydration in the setting of underlying right heart failure. I did discuss with the family who are not aware of any renal problems in the past. Ventilator management per inspector wire products. Closely monitor leukocytosis no fever noted at this time. I will replace potassium as noted hypokalemia Discussed with family the two daughters in detail The high probability of a clinically significant, sudden or life threatening deterioration of the [pulmonary, hematology, renal, cardiac] system(s) required my full and direct attention, intervention and personal management. The aggregate critical care time was [] minutes. This time is in addition to time spent performing reported procedures but includes the following: [x] Data Review and interpretation [x] Patient assessment and monitoring of vital signs [x] Documentation [x] Medication orders and management History Interval history: Patient seen and examined this morning remains on EKOS system sedated full ventilatory support, still hypotensive this morning despite pressors. Hospitalist Physical - Physical exam Narrative exam: VITAL SIGNS: Reviewed. GENERAL: The patient appears normally developed, sedated full ventilatory support via ET tube vital signs as documented. HEAD: No signs of head trauma. EYES: Pupils are equal. EARS: Unable to exam MOUTH: Oropharynx is normal. NECK: No adenopathy, no JVD. CHEST: Chest with clear breath sounds bilaterally. No wheezes, rales, or rhonchi. CARDIAC: Regular rate and rhythm. S1 and S2, without murmurs, gallops, or rubs. VASCULAR: No Edema. Peripheral pulses normal and equal in all extremities. ABDOMEN: Soft, non tender and non distended. No rebound or guarding, and no masses palpated. Bowel Sounds normal. MUSCULOSKELETAL: Good range of motion of all major joints. Extremities without clubbing, cyanosis or edema. NEUROLOGIC EXAM: Sedated PSYCHIATRIC: Sedated SKIN: detail exam as documented in skin assessment - Constitutional Vitals: Temp Pulse Resp BP Pulse Ox 73 18 100/48 100 11/10/20 08:00 11/10/20 08:00 11/10/20 08:00 11/10/20 08:00 General appearance: Present: other (Intubated and Sedated) HEART Score - HEART Score Troponin: Troponin T 0.873 ng/mL (0.00-0.029) H* D 11/09/20 23:05 Results - Labs CBC & Chem 7: 11/10/20 04:28 11/10/20 04:28 Labs: Laboratory Last Values WBC 17.7 K/mm3 (4.5-11.0) H 11/10/20 04:28 RBC 3.66 M/mm3 (3.65-5.03) 11/10/20 04:28 Hgb 11.3 gm/dl (10.1-14.3) 11/10/20 04:28 Hct 33.8 % (30.3-42.9) 11/10/20 04:28 MCV 92 fl (79-97) 11/10/20 04:28 MCH 31 pg (28-32) 11/10/20 04:28 MCHC 33 % (30-34) 11/10/20 04:28 RDW 14.6 % (13.2-15.2) 11/10/20 04:28 Plt Count 191 K/mm3 (140-440) 11/10/20 04:28 Lymph % (Auto) 54.6 % (13.4-35.0) H 11/09/20 17:24 Rush % (Auto) 4.5 % (0.0-7.3) 11/09/20 17:24 Eos % (Auto) 1.1 % (0.0-4.3) 11/09/20 17:24 Baso % (Auto) 1.3 % (0.0-1.8) 11/09/20 17:24 Lymph # (Auto) 3.7 K/mm3 (1.2-5.4) 11/09/20 17:24 Rush # (Auto) 0.3 K/mm3 (0.0-0.8) 11/09/20 17:24 Eos # (Auto) 0.1 K/mm3 (0.0-0.4) 11/09/20 17:24 Baso # (Auto) 0.1 K/mm3 (0.0-0.1) 11/09/20 17:24 Add Manual Diff Complete 11/10/20 04:28 Total Counted 100 11/10/20 04:28 Seg Neutrophils % Sealing Machine Operator 11/10/20 04:28 Seg Neuts % (Manual) 96.0 % (40.0-70.0) H 11/10/20 04:28 Lymphocytes % (Manual) 1.0 % (13.4-35.0) L 11/10/20 04:28 Monocytes % (Manual) 3.0 % (0.0-7.3) 11/10/20 04:28 Nucleated RBC % Not Reportable 11/10/20 04:28 Seg Neutrophils # 2.6 K/mm3 (1.8-7.7) 11/09/20 17:24 Seg Neutrophils # Man 17.0 K/mm3 (1.8-7.7) H 11/10/20 04:28 Band Neutrophils # 0.0 K/mm3 11/10/20 04:28 Lymphocytes # (Manual) 0.2 K/mm3 (1.2-5.4) L 11/10/20 04:28 Abs React Lymphs (Man) 0.0 K/mm3 11/10/20 04:28 Monocytes # (Manual) 0.5 K/mm3 (0.0-0.8) 11/10/20 04:28 Eosinophils # (Manual) 0.0 K/mm3 (0.0-0.4) 11/10/20 04:28 Basophils # (Manual) 0.0 K/mm3 (0.0-0.1) 11/10/20 04:28 Metamyelocytes # 0.0 K/mm3 11/10/20 04:28 Myelocytes # 0.0 K/mm3 11/10/20 04:28 Promyelocytes # 0.0 K/mm3 11/10/20 04:28 Blast Cells # 0.0 K/mm3 11/10/20 04:28 WBC Morphology Not Reportable 11/10/20 04:28 Hypersegmented Neuts Not Reportable 11/10/20 04:28 Hyposegmented Neuts Not Reportable 11/10/20 04:28 Hypogranular Neuts Not Reportable 11/10/20 04:28 Smudge Cells Not Reportable 11/10/20 04:28 Toxic Granulation Not Reportable 11/10/20 04:28 Toxic Vacuolation Not Reportable 11/10/20 04:28 Dohle Bodies Not Reportable 11/10/20 04:28 Pelger-Huet Anomaly Not Reportable 11/10/20 04:28 Carmen Rods Not Reportable 11/10/20 04:28 Platelet Estimate Consistent w auto 11/10/20 04:28 Clumped Platelets Not Reportable 11/10/20 04:28 Plt Clumps, EDTA Not Reportable 11/10/20 04:28 Large Platelets Not Reportable 11/10/20 04:28 Giant Platelets Not Reportable 11/10/20 04:28 Platelet Satelliting Not Reportable 11/10/20 04:28 Plt Morphology Comment Not Reportable 11/10/20 04:28 RBC Morphology Not Reportable 11/10/20 04:28 Dimorphic RBCs Not Reportable 11/10/20 04:28 Polychromasia Not Reportable 11/10/20 04:28 Hypochromasia Not Reportable 11/10/20 04:28 Poikilocytosis Not Reportable 11/10/20 04:28 Anisocytosis 1+ 11/10/20 04:28 Microcytosis Not Reportable 11/10/20 04:28 Macrocytosis Not Reportable 11/10/20 04:28 Spherocytes Not Reportable 11/10/20 04:28 Pappenheimer Bodies Not Reportable 11/10/20 04:28 Sickle Cells Not Reportable 11/10/20 04:28 Target Cells Not Reportable 11/10/20 04:28 Tear Drop Cells Not Reportable 11/10/20 04:28 Ovalocytes Not Reportable 11/10/20 04:28 Helmet Cells Not Reportable 11/10/20 04:28 [place] Bodies Not Reportable 11/10/20 04:28 [place] Rings Not Reportable 11/10/20 04:28 [place] Cells Not Reportable 11/10/20 04:28 Bite Cells Not Reportable 11/10/20 04:28 Crenated Cell Not Reportable 11/10/20 04:28 Elliptocytes Not Reportable 11/10/20 04:28 Acanthocytes (Spur) Not Reportable 11/10/20 04:28 Rouleaux Not Reportable 11/10/20 04:28 Hemoglobin C Crystals Not Reportable 11/10/20 04:28 Schistocytes Not Reportable 11/10/20 04:28 Malaria parasites Not Reportable 11/10/20 04:28 [place] Bodies Not Reportable 11/10/20 04:28 Hem Pathologist Commnt No 11/10/20 04:28 PT 20.3 Sec. (12.2-14.9) H 11/10/20 04:28 INR 1.69 (0.87-1.13) H 11/10/20 04:28 APTT Not Reportable 11/10/20 04:28 Fibrinogen 221 mg/dl (211-480) 11/10/20 04:28 D-Dimer > 77288 ng/mlDDU (0-234) H 11/10/20 04:28 Heparin Anti-Xa Level 0.79 U.I./ml (0.3-0.7) H 11/10/20 00:42 ABG pH 7.221 (7.320-7.450) L 11/10/20 05:13 POC ABG pCO2 43.4 mmHg (32.0-48.0) 11/10/20 05:13 POC ABG pO2 162.0 mmHg (83-108) H 11/10/20 05:13 POC ABG HCO3 17.4 11/10/20 05:13 ABG O2 Saturation 99.1 (0-100) 11/10/20 05:13 POC ABG Base Excess -9.8 11/10/20 05:13 ABG Hemoglobin 11.7 (12.0-17.5) L 11/10/20 05:13 ABG Oxyhemoglobin 98.9 (94-98) H 11/10/20 05:13 ABG Methemoglobin 0.1 (0.0-1.5) 11/10/20 05:13 ABG Sodium 133.6 mmol/L (136.0-145.0) L 11/10/20 05:13 ABG Potassium 3.1 mmol/L (3.40-4.50) L 11/10/20 05:13 ABG Chloride 105.0 mmol/L (98-107) 11/10/20 05:13 ABG Glucose 346 mg/dL (65-95) H 11/10/20 05:13 Carboxyhemoglobin 0.1 (0.5-1.5) L 11/10/20 05:13 FiO2 % 60.0 11/10/20 05:13 Sodium 136 mmol/L (137-145) L 11/10/20 04:28 Potassium 3.3 mmol/L (3.6-5.0) L 11/10/20 04:28 Chloride 101.7 mmol/L (98-107) 11/10/20 04:28 Carbon Dioxide 16 mmol/L (22-30) L 11/10/20 04:28 Anion Gap 22 mmol/L 11/10/20 04:28 BUN 21 mg/dL (7-17) H 11/10/20 04:28 Creatinine 1.8 mg/dL (0.6-1.2) H 11/10/20 04:28 Estimated GFR 32 ml/min 11/10/20 04:28 BUN/Creatinine Ratio 12 % 11/10/20 04:28 Glucose 376 mg/dL (65-100) H 11/10/20 04:28 Lactic Acid 6.10 mmol/L (0.7-2.0) H* 11/10/20 04:28 Calcium 8.5 mg/dL (8.4-10.2) 11/10/20 04:28 Total Bilirubin 0.30 mg/dL (0.1-1.2) 11/09/20 17:24 Direct Bilirubin < 0.2 mg/dL (0-0.2) 11/09/20 17:24 Indirect Bilirubin 0.1 mg/dL 11/09/20 17:24 AST 312 units/L (5-40) H 11/09/20 17:24 ALT 273 units/L (7-56) H 11/09/20 17:24 Alkaline Phosphatase 84 units/L (35-129) 11/09/20 17:24 Lactate Dehydrogenase 1637 units/L (91-180) H 11/10/20 04:28 Total Creatine Kinase 449 units/L (30-135) H 11/09/20 23:05 CK-MB (CK-2) 18.4 ng/mL (0.0-4.0) H 11/09/20 23:05 CK-MB (CK-2) Rel Index 4.0 (0-4) 11/09/20 23:05 Troponin T 0.873 ng/mL (0.00-0.029) H* D 11/09/20 23:05 C-Reactive Protein 3.50 mg/dL (0.00-1.30) H 11/10/20 04:28 NT-Pro-B Natriuret Pep 1169 pg/mL (0-900) H 11/09/20 17:24 Total Protein 5.2 g/dL (6.3-8.2) L 11/09/20 17:24 Albumin 2.8 g/dL (3.9-5) L 11/09/20 17:24 Albumin/Globulin Ratio 1.2 % 11/09/20 17:24 Triglycerides 163 mg/dL (2-149) H 11/09/20 17:24 Cholesterol 118 mg/dL (50-199) 11/09/20 17:24 LDL Cholesterol Direct 72 mg/dL (50-130) 11/09/20 17:24 HDL Cholesterol 29 mg/dL (40-59) L 11/09/20 17:24 Cholesterol/HDL Ratio 4.06 % 11/09/20 17:24 Arterial Blood Glucose 346 mg/dL (65-95) H 11/10/20 05:13 Urine Color Straw (Yellow) 11/09/20 19:07 Urine Turbidity Clear (Clear) 11/09/20 19:07 Urine pH 7.0 (5.0-7.0) 11/09/20 19:07 Ur Specific [place] 1.003 (1.003-1.030) 11/09/20 19:07 Urine Protein <15 mg/dl mg/dL (Negative) 11/09/20 19:07 Urine Glucose (UA) Neg mg/dL (Negative) 11/09/20 19:07 Urine Ketones Neg mg/dL (Negative) 11/09/20 19:07 Urine Blood Mod (Negative) 11/09/20 19:07 Urine Nitrite Neg (Negative) 11/09/20 19:07 Urine Bilirubin Neg (Negative) 11/09/20 19:07 Urine Urobilinogen < 2.0 mg/dL (<2.0) 11/09/20 19:07 Ur Leukocyte Esterase Neg (Negative) 11/09/20 19:07 Urine WBC (Auto) 2.0 /HPF (0.0-6.0) 11/09/20 19:07 Urine RBC (Auto) 2.0 /HPF (0.0-6.0) 11/09/20 19:07 U Epithel Cells (Auto) 1.0 /HPF (0-13.0) 11/09/20 19:07 Urine Bacteria (Auto) 1+ /HPF (Negative) 11/09/20 19:07 Urine Opiates Screen Negative 11/09/20 19:07 Urine Methadone Screen Negative 11/09/20 19:07 Ur Barbiturates Screen Negative 11/09/20 19:07 Ur Phencyclidine Scrn Negative 11/09/20 19:07 Ur Amphetamines Screen Negative 11/09/20 19:07 U Benzodiazepines Scrn Negative 11/09/20 19:07 Urine Cocaine Screen Negative 11/09/20 19:07 U Marijuana (THC) Screen Negative 11/09/20 19:07 Drugs of Abuse Note Disclamer 11/09/20 19:07 Blood Type O POSITIVE 11/09/20 17:24 Antibody Screen Negative 11/09/20 17:24 Microbiology: Microbiology 11/09/20 23:05 Peripheral/Venous Blood Culture - Preliminary Culture in Progress 11/09/20 22:59 Peripheral/Venous Blood Culture - Preliminary Culture in Progress Gonsalves/IV: Voiding Method Indwelling Catheter Active Medications - Current Medications Current Medications: Generic Name Dose Route Start Last Admin Trade Name Freq PRN Reason Stop Dose Admin Acetaminophen 650 mg 11/09/20 23:07 Acetaminophen 650 Mg Rect Supp MS Q6H PRN Pain MILD(1-3)/Fever >100.5/REYES Acetaminophen 650 mg 11/09/20 23:59 Acetaminophen 325 Mg Tab PO Q6H PRN Pain, Mild (1-3) Hydrocodone Bitart/Acetaminophen 2 each 11/09/20 23:59 Hydrocodone/Acetaminophen 5-325 Mg Tab PO Q6H PRN Pain, Moderate (4-6) Famotidine 10 mg 11/10/20 10:00 Famotidine 20 Mg/2 Ml Inj IV BID MELONY Fentanyl 50 mcg 11/09/20 22:37 Fentanyl 100 Mcg/2 Ml Inj IV Q10MIN PRN ANALGESIA Hydrophilic Ointment 1 applic 11/09/20 17:08 Lip Therapy Vaseline TP Q2H PRN Dry Lips Propofol 1,000 mg in 100 mls @ 2.245 mls/hr 11/09/20 18:00 11/10/20 06:00 Diprivan 10 Mg/Ml IV 25 mcg/kg/min TITR MELONY 11.226 mls/hr Titration Protocol 5 MCG/KG/MIN NORepinephrine/NS 8 MG-250 ML 8 mg in 250 mls @ 3.75 mls/hr 11/09/20 18:00 11/10/20 07:18 Norepinephrine/Ns 8 Mg-250 Ml (Double Conc) IV 14 mcg/min TITRATE MELONY 26.25 mls/hr Titration Protocol 2 MCG/MIN Dopamine HCl/Dextrose 800 mg in 250 mls @ 2.807 mls/hr 11/09/20 17:48 11/10/20 03:09 Intropin Drip 800 Mg/D5w 250 Ml IV 11/13/20 10:51 14 mcg/kg/min TITR ONE 19.646 mls/hr Titration Protocol 2 MCG/KG/MIN Fentanyl Citrate 2,000 mcg in 100 mls @ 11.226 mls/hr 11/09/20 23:00 11/10/20 02:00 Fentanyl Drip Premix IV 1 mcg/kg/hr TITR MELONY 3.742 mls/hr Titration Protocol 3 MCG/KG/HR Sodium Chloride 1,000 mls @ 75 mls/hr 11/09/20 23:15 Nacl 0.9% 1000 Ml IV DIRECT MELONY Ceftriaxone Sodium 2 gm in 100 mls @ 200 mls/hr 11/09/20 23:45 11/10/20 05:29 Rocephin/Ns 2 Gm/100 Ml IV 200 mls/hr Q24HR MELONY Administration Protocol Azithromycin 500 mg in 250 mls @ 250 mls/hr 11/09/20 23:45 11/10/20 05:29 Zithromax/Ns IV 250 mls/hr Q24HR MELNOY Administration Protocol Sodium Chloride 1,000 mls @ 30 mls/hr 11/09/20 23:45 Nacl 0.9% 1000 Ml IV DIRECT MELONY Alteplase, Recombinant 10 mg/ 250 mls @ 10 mls/hr 11/09/20 23:59 Sodium Chloride EKOSDLUMEN 11/11/20 00:58 DIRECT STA Alteplase, Recombinant 10 mg/ 250 mls @ 10 mls/hr 11/09/20 23:59 Sodium Chloride IV 11/11/20 00:58 DIRECT STA Sodium Chloride 1,000 mls @ 30 mls/hr 11/09/20 23:45 Nacl 0.9% 1000 Ml SHEATH DIRECT MELONY Sodium Chloride 1,000 mls @ 35 mls/hr 11/09/20 23:45 Nacl 0.9% 1000 Ml EKOSCLUMEN DIRECT MELONY Sodium Chloride 1,000 mls @ 30 mls/hr 11/09/20 23:45 Nacl 0.9% 1000 Ml SHEATH DIRECT MELONY Sodium Chloride 1,000 mls @ 35 mls/hr 11/09/20 23:45 Nacl 0.9% 1000 Ml EKOSCLUMEN DIRECT MELONY Heparin Sodium/Sodium Chloride 25,000 unit in 500 mls @ 10 mls/hr 11/09/20 23:45 Heparin/ 0.45% Nacl-25,000 Unit/500 Ml SHEATH DIRECT MELONY Protocol 500 UNITS/HR Heparin Sodium/Sodium Chloride 25,000 unit in 500 mls @ 10 mls/hr 11/09/20 23:45 Heparin/ 0.45% Nacl-25,000 Unit/500 Ml SHEATH DIRECT MELONY Protocol 500 UNITS/HR Magnesium Hydroxide 30 ml 11/09/20 23:07 Magnesium Hydroxide (Mom) Oral Liqd Udc PO Q4H PRN Constipation Morphine Sulfate 2 mg 11/09/20 23:07 Morphine 2 Mg/1 Ml Inj IV Q4H PRN Pain, Moderate (4-6) Morphine Sulfate 4 mg 11/09/20 23:07 Morphine 4 Mg/1 Ml Inj IV Q4H PRN Pain , Severe (7-10) Morphine Sulfate 4 mg 11/09/20 23:59 Morphine 4 Mg/1 Ml Inj IV Q4H PRN Pain , Severe (7-10) Multi-Ingred Cream/Lotion/Oil/Oint 1 applic 11/09/20 17:08 Mineral Oil/Petrolatum, White Ophth Oint 3.5 Gm OU Q4H PRN Dry Eye(s) Ondansetron HCl 4 mg 11/09/20 23:07 Ondansetron 4 Mg/2 Ml Inj IV Q8H PRN Nausea And Vomiting Senna/Docusate Sodium 1 tab 11/09/20 22:00 11/10/20 02:34 Sennosides/Docusate Sodium 8.6/50 Mg Tab FEEDTUBE Not Given BID MELONY Sodium Chloride 10 ml 11/10/20 10:00 Sodium Chloride 0.9% 10 Ml Flush Syringe IV BID MELONY Sodium Chloride 10 ml 11/09/20 23:07 Sodium Chloride 0.9% 10 Ml Flush Syringe IV PRN PRN LINE FLUSH
[2020-11-10] MEDS: POTASSIUM CHLORIDE 10 MEQ 10 MEQ/100 ML BAG IV SCH ×2 (09:39→14:17)
[2020-11-10] MEDS ORDERED: FAMOTIDINE 20 MG/2 ML INJ IV SCH (10:00)
--- NOTE | 2020-11-10 10:58 | Consultation ---
History of Present Illness - Reason for Consult acute renal failure, hypokalemia - History of Present Illness 84 y/o F, with documented PMHX, presented to the ED secondary to worsening shortness of breath, with CTA indicating large b/l segmental and subsegmental PE, s/p pulmonary angiopgraphy with placement of thrombolytic catheters by vascular surgery. Nephrology consulted secondary to TYLER. Unclear what patient's baseline renal function is. She was at cardiac laborer electroplating when I came up to see the patient this afternoon. Discussed case at length with cardiology. Started on NS at 75 cc/hr. Past History Past Medical History: arthritis, hypertension, renal failure, other (Chronic Right Bundle Branch Block) Past Surgical History: No surgical history Social history: no significant social history Medications and Allergies Allergies Allergy/AdvReac Type Severity Reaction Status Date / Time No Known Allergies Allergy Verified 11/09/20 17:19 Active Meds: Active Medications Acetaminophen (Acetaminophen 650 Mg Rect Supp) 650 mg SD Q6H PRN PRN Reason: Pain MILD(1-3)/Fever >100.5/REYES Acetaminophen (Acetaminophen 325 Mg Tab) 650 mg PO Q6H PRN PRN Reason: Pain, Mild (1-3) Hydrocodone Bitart/Acetaminophen (Hydrocodone/Acetaminophen 5-325 Mg Tab) 2 each PO Q6H PRN PRN Reason: Pain, Moderate (4-6) Famotidine (Famotidine 20 Mg/2 Ml Inj) 10 mg IV BID MELONY Last Admin: 11/10/20 09:48 Dose: 10 mg Documented by: Fentanyl (Fentanyl 100 Mcg/2 Ml Inj) 50 mcg IV Q10MIN PRN PRN Reason: ANALGESIA Hydrophilic Ointment (Lip Therapy Vaseline) 1 applic TP Q2H PRN PRN Reason: Dry Lips Propofol (Diprivan 10 Mg/Ml) 1,000 mg in 100 mls @ 2.245 mls/hr IV TITR MELONY; Protocol Last Admin: 11/10/20 10:23 Dose: 25 mcg/kg/min, 11.226 mls/hr Documented by: NORepinephrine/NS 8 MG-250 ML (Norepinephrine/Ns 8 Mg-250 Ml (Double Conc)) 8 mg in 250 mls @ 3.75 mls/hr IV TITRATE MELONY; Protocol Last Titration: 11/10/20 07:18 Dose: 14 mcg/min, 26.25 mls/hr Documented by: Dopamine HCl/Dextrose (Intropin Drip 800 Mg/D5w 250 Ml) 800 mg in 250 mls @ 2.807 mls/hr IV TITR ONE; Protocol Stop: 11/13/20 10:51 Last Titration: 11/10/20 03:09 Dose: 14 mcg/kg/min, 19.646 mls/hr Documented by: Fentanyl Citrate (Fentanyl Drip Premix) 2,000 mcg in 100 mls @ 11.226 mls/hr IV TITR MELONY; Protocol Last Titration: 11/10/20 02:00 Dose: 1 mcg/kg/hr, 3.742 mls/hr Documented by: Sodium Chloride (Nacl 0.9% 1000 Ml) 1,000 mls @ 75 mls/hr IV DIRECT MELONY Ceftriaxone Sodium (Rocephin/Ns 2 Gm/100 Ml) 2 gm in 100 mls @ 200 mls/hr IV Q24HR MELONY; Protocol Last Admin: 11/10/20 05:29 Dose: 200 mls/hr Documented by: Azithromycin (Zithromax/Ns) 500 mg in 250 mls @ 250 mls/hr IV Q24HR MELONY; Protocol Last Admin: 11/10/20 05:29 Dose: 250 mls/hr Documented by: Sodium Chloride (Nacl 0.9% 1000 Ml) 1,000 mls @ 30 mls/hr IV DIRECT MELONY Alteplase, Recombinant 10 mg/ (Sodium Chloride) 250 mls @ 10 mls/hr EKOSDLUMEN DIRECT STA Stop: 11/11/20 00:58 Alteplase, Recombinant 10 mg/ (Sodium Chloride) 250 mls @ 10 mls/hr IV DIRECT STA Stop: 11/11/20 00:58 Sodium Chloride (Nacl 0.9% 1000 Ml) 1,000 mls @ 30 mls/hr SHEATH DIRECT MELONY Sodium Chloride (Nacl 0.9% 1000 Ml) 1,000 mls @ 35 mls/hr EKOSCLUMEN DIRECT MELONY Sodium Chloride (Nacl 0.9% 1000 Ml) 1,000 mls @ 30 mls/hr SHEATH DIRECT MELOYN Sodium Chloride (Nacl 0.9% 1000 Ml) 1,000 mls @ 35 mls/hr EKOSCLUMEN DIRECT MELONY Heparin Sodium/Sodium Chloride (Heparin/ 0.45% Nacl-25,000 Unit/500 Ml) 25,000 unit in 500 mls @ 10 mls/hr SHEATH DIRECT MELONY; Protocol Heparin Sodium/Sodium Chloride (Heparin/ 0.45% Nacl-25,000 Unit/500 Ml) 25,000 unit in 500 mls @ 10 mls/hr SHEATH DIRECT MELONY; Protocol Potassium Chloride (Kcl 10meq/100ml) 10 meq in 100 mls @ 100 mls/hr IV Q1H MELONY Stop: 11/10/20 11:59 Last Admin: 11/10/20 09:39 Dose: 100 mls/hr Documented by: Magnesium Hydroxide (Magnesium Hydroxide (Mom) Oral Liqd Udc) 30 ml PO Q4H PRN PRN Reason: Constipation Morphine Sulfate (Morphine 2 Mg/1 Ml Inj) 2 mg IV Q4H PRN PRN Reason: Pain, Moderate (4-6) Morphine Sulfate (Morphine 4 Mg/1 Ml Inj) 4 mg IV Q4H PRN PRN Reason: Pain , Severe (7-10) Morphine Sulfate (Morphine 4 Mg/1 Ml Inj) 4 mg IV Q4H PRN PRN Reason: Pain , Severe (7-10) Multi-Ingred Cream/Lotion/Oil/Oint (Mineral Oil/Petrolatum, White Ophth Oint 3.5 Gm) 1 applic OU Q4H PRN PRN Reason: Dry Eye(s) Ondansetron HCl (Ondansetron 4 Mg/2 Ml Inj) 4 mg IV Q8H PRN PRN Reason: Nausea And Vomiting Senna/Docusate Sodium (Sennosides/Docusate Sodium 8.6/50 Mg Tab) 1 tab FEEDTUBE BID MELONY Last Admin: 11/10/20 02:34 Dose: Not Given Documented by: Sodium Chloride (Sodium Chloride 0.9% 10 Ml Flush Syringe) 10 ml IV BID MELONY Sodium Chloride (Sodium Chloride 0.9% 10 Ml Flush Syringe) 10 ml IV PRN PRN PRN Reason: LINE FLUSH Review of Systems ROS unobtainable: due to endotracheal tube, due to mental status Exam - Vital Signs Vital signs: Vital Signs Pulse Resp 121 H 10 L 11/09/20 17:14 11/09/20 17:14 - Physical Exam Narrative exam: Patient was off floor at cardiac laborer electroplating during the time of my examination. Physical exam findings by primary team reviewed. Results - Lab Results 11/10/20 04:28 11/10/20 04:28 Most recent lab results ABG pH 7.221 (7.320-7.450) L 11/10/20 05:13 ABG O2 Saturation 99.1 (0-100) 11/10/20 05:13 Calcium 8.5 mg/dL (8.4-10.2) 11/10/20 04:28 Assessment and Plan - Patient Problems (1) Acute kidney injury Current Visit: Yes Status: Acute Plan to address problem: Likely pre-renal injury in the setting of acute b/l PE with cor pulmonale and right sided heart failure. Agree with gentle IVF hydration with careful monitoring of respiratory/volume status. Underwent emergent CTA with contrast exposure which can also lead to further renal injury. Will change with NS + 20 meq KCl to run at 75 cc/hr. Obtain renal US along with UA and urine electrolytes Avoid nephrotoxins, maintain MAP >65 mmHg Will follow closely. Need to have strict monitoring of I/O. (2) Acute pulmonary embolism with acute cor pulmonale Current Visit: Yes Status: Acute Plan to address problem: s/p pulmonary angiography and placement of b/l thrombolytics catheter placement by vascular surgery. Follow up further recommendations from cardiology. Unclear etiology of b/l PE. (3) Cardiopulmonary arrest Current Visit: Yes Status: Acute Plan to address problem: On multiple pressor support. Intubated, sedated. Current off the floor at cardiac laborer electroplating. Further recommendations per cardiology. (4) Hypokalemia Current Visit: Yes Status: Acute Plan to address problem: Adjust current IVF to NS + 20 meq KCl at 75 cc/hr.
[2020-11-10] MEDS ORDERED: HEPARIN/NS 5000 UNIT/500ML 1,000 ML IR ONE (10:59)
[2020-11-10] MEDS: PHENYLEPHRINE/NS 1,000 MCG/10 ML SYRINGE (OR USE) IV ONE ×2 (11:12→11:21)
[2020-11-10] MEDS: LIDOCAINE (2%) 20 MG/1 ML VIAL 20 ML MDV INFILTRATI ONE ×2 (11:14→11:21)
--- NOTE | 2020-11-10 11:32 | Operative Report ---
Operative Report Operative Report: Exam: Bilateral thrombolytics catheters removal, pulmonary angiography, right heart pressure measurements, IVC filter placement Clinical indication: Patient with a history of massive pulmonary embolism with cor pulmonale status post code on admission Date: 11/10/2020 Procedure: Following an explanation of the risk, benefits and alternatives; written informed consent was obtained from the patient's daughter Eron. The patient was brought to the angiographic suite and placed in supine position on the examination table. The patient was noted to have some degree of hypotension with systolic pressures in the upper 70s. Cardiology in attendance and the patient received additional pressors. The patient's left groin and indwelling catheters were prepped and draped in the usual sterile fashion. Additional lidocaine was used at the access sites. The infusion wire for the catheter in the left main pulmonary artery to left lower lobe pulmonary artery was removed. Contrast was injected through the infusion catheter and imaging obtained at multiple locations. The imaging was suboptimal however, no large pulmonary embolism is identified. The infusion catheter was then removed. The infusion wire for the catheter in the right main pulmonary artery to the right lower lobe pulmonary artery was removed. Contrast was injected and imaging obtained at multiple locations. The imaging demonstrated no large pulmonary emboli. A 0.035 guidewire was advanced through the infusion catheter and the infusion catheter removed. An MPA catheter was then advanced over the guidewire and together the guidewire and catheter were retracted into the right ventricle. The guidewire was removed. Right ventricular pressures were then obtained. RV pressure is 50/22. The catheter was then withdrawn into the IVC and IVC pressures obtained. The IVC pressure is 20/0 with a mean of 18. The 0.035 guidewire was then advanced into the IVC and the catheter removed. Contrast was injected through the sheath which demonstrates an appropriately sized IVC with no significant intramural thrombus. The 6 [place] sheath was removed and a 10 [place] IVC filter introducer sheath advanced over the guidewire to the infrarenal IVC. The trocar and guidewire were removed. A [employer] [place] IVC filter was then advanced through the sheath and deployed. The tip of the filter is at the inferior endplate of L2. Post placement imaging demonstrated satisfactory positioning with no significant tilt. The IVC filter introducer sheath and the second 6 [place] sheath were removed and hemostasis achieved using manual compression and a compression dressing. The patient tolerated the procedure with baseline hypotension as described. No adverse events occurred during the procedure. Continuous cardiopulmonary monitoring was utilized to the guidance of radiologic nursing. Respiratory therapy was in attendance throughout the entire case. No sedation was utilized. Impression: 1) Bilateral pulmonary artery angiography demonstrating no significant large pulmonary emboli. 2) Removal of bilateral thrombolytics catheters. 3) Right ventricular measurements with an RV pressure of 50/22 and an IVC pressure of 20/0 with a mean of 18. 4) Placement of an infrarenal IVC filter
[2020-11-10] MEDS ORDERED: HEPARIN 10,000 UNITS/10 ML VIAL IV PRN (11:33)
--- NOTE | 2020-11-10 11:38 | Progress Note ---
Assessment and Plan Patient status post removal of thrombolytics catheters, placement of IVC and right heart pressure measurement. Patient's pulmonary angiography demonstrates no significant large pulmonary emboli, smaller subsegmental emboli not excluded secondary to patient respiratory motion. Patient is hypotensive and will defer to cardiology/emt/dispatcher for management of her hypertension. Spoke with daughter prior to procedure to obtain consent and again reinforced the tenuous nature of her mother's condition given her code on presentation with right heart failure. Patient will be restarted on a heparin drip. Subjective Date of service: 11/10/20 Principal diagnosis: Massive pulmonary embolism with cor pulmonale Interval history: Patient postop day 1 status post placement of thrombolytics catheters. She remains intubated and sedated. Patient with trickle of bleeding from her mouth. H&H stable. Objective - Constitutional Vitals: Vital Signs - 12hr 11/09/20 11/09/20 11/10/20 23:40 23:45 04:00 Pulse Rate 102 H Pulse Rate [ From Monitor] Pulse Rate [ Left Dorsalis Pedis] Respiratory 18 Rate Blood Pressure 128/70 100/61 O2 Sat by Pulse 100 100 100 Oximetry 11/10/20 11/10/20 11/10/20 04:04 04:31 04:56 Pulse Rate 79 76 78 Pulse Rate [ From Monitor] Pulse Rate [ Left Dorsalis Pedis] Respiratory 18 Rate Blood Pressure 99/51 O2 Sat by Pulse 100 Oximetry 11/10/20 11/10/20 11/10/20 05:00 06:00 07:00 Pulse Rate 73 73 78 Pulse Rate [ From Monitor] Pulse Rate [ Left Dorsalis Pedis] Respiratory 18 18 18 Rate Blood Pressure 99/51 104/52 92/47 O2 Sat by Pulse 100 100 100 Oximetry 11/10/20 11/10/20 08:00 08:30 Pulse Rate 73 76 Pulse Rate [ 73 From Monitor] Pulse Rate [ 70 Left Dorsalis Pedis] Respiratory 18 Rate Blood Pressure 100/48 102/49 O2 Sat by Pulse 100 98 Oximetry General appearance: Present: other (Intubated) - Cardiovascular Rhythm: other (Hypotensive) Extremities: abnormal (Puncture sites with no significant bleeding) - Gastrointestinal General gastrointestinal: Present: deferred Rectal Exam: deferred - Labs CBC & Chem 7: 11/10/20 04:28 11/10/20 04:28 Labs: Abnormal lab results 11/09/20 11/09/20 11/09/20 Range/Units 17:24 17:24 17:24 WBC (4.5-11.0) K/mm3 RBC 3.29 L (3.65-5.03) M/mm3 Plt Count 100 L (140-440) K/mm3 Lymph % (Auto) 54.6 H (13.4-35.0) % Seg Neutrophils % 38.5 L (40.0-70.0) % Seg Neuts % (Manual) (40.0-70.0) % Lymphocytes % (Manual) (13.4-35.0) % Seg Neutrophils # Man (1.8-7.7) K/mm3 Lymphocytes # (Manual) (1.2-5.4) K/mm3 PT 19.9 H (12.2-14.9) Sec. INR 1.64 H (0.87-1.13) APTT 49.2 H (24.2-36.6) Sec. Fibrinogen (211-480) mg/dl D-Dimer > 99406 H (0-234) ng/mlDDU Heparin Anti-Xa Level (0.3-0.7) U.I./ml ABG pH (7.320-7.450) POC ABG pO2 (83-108) mmHg ABG Hemoglobin (12.0-17.5) ABG Oxyhemoglobin (94-98) ABG Sodium (136.0-145.0) mmol/L ABG Potassium (3.40-4.50) mmol/L ABG Glucose (65-95) mg/dL Carboxyhemoglobin (0.5-1.5) Sodium (137-145) mmol/L Potassium 2.9 L* (3.6-5.0) mmol/L Carbon Dioxide 13 L (22-30) mmol/L BUN (7-17) mg/dL Creatinine 1.4 H (0.6-1.2) mg/dL Glucose 391 H (65-100) mg/dL Lactic Acid (0.7-2.0) mmol/L AST (5-40) units/L ALT (7-56) units/L Lactate Dehydrogenase (91-180) units/L Total Creatine Kinase (30-135) units/L CK-MB (CK-2) 5.0 H (0.0-4.0) ng/mL CK-MB (CK-2) Rel Index 4.8 H (0-4) Troponin T 0.263 H* (0.00-0.029) ng/mL C-Reactive Protein (0.00-1.30) mg/dL NT-Pro-B Natriuret Pep (0-900) pg/mL Total Protein (6.3-8.2) g/dL Albumin (3.9-5) g/dL Triglycerides 163 H (2-149) mg/dL HDL Cholesterol 29 L (40-59) mg/dL Arterial Blood Glucose (65-95) mg/dL 11/09/20 11/09/20 11/09/20 Range/Units 17:24 18:11 18:21 WBC (4.5-11.0) K/mm3 RBC (3.65-5.03) M/mm3 Plt Count (140-440) K/mm3 Lymph % (Auto) (13.4-35.0) % Seg Neutrophils % (40.0-70.0) % Seg Neuts % (Manual) (40.0-70.0) % Lymphocytes % (Manual) (13.4-35.0) % Seg Neutrophils # Man (1.8-7.7) K/mm3 Lymphocytes # (Manual) (1.2-5.4) K/mm3 PT (12.2-14.9) Sec. INR (0.87-1.13) APTT (24.2-36.6) Sec. Fibrinogen (211-480) mg/dl D-Dimer (0-234) ng/mlDDU Heparin Anti-Xa Level (0.3-0.7) U.I./ml ABG pH 7.053 L (7.320-7.450) POC ABG pO2 159.6 H (83-108) mmHg ABG Hemoglobin (12.0-17.5) ABG Oxyhemoglobin (94-98) ABG Sodium 135.1 L (136.0-145.0) mmol/L ABG Potassium (3.40-4.50) mmol/L ABG Glucose 421 H (65-95) mg/dL Carboxyhemoglobin 0.3 L (0.5-1.5) Sodium (137-145) mmol/L Potassium (3.6-5.0) mmol/L Carbon Dioxide (22-30) mmol/L BUN (7-17) mg/dL Creatinine (0.6-1.2) mg/dL Glucose (65-100) mg/dL Lactic Acid 11.40 H* (0.7-2.0) mmol/L AST 312 H (5-40) units/L ALT 273 H (7-56) units/L Lactate Dehydrogenase (91-180) units/L Total Creatine Kinase (30-135) units/L CK-MB (CK-2) (0.0-4.0) ng/mL CK-MB (CK-2) Rel Index (0-4) Troponin T (0.00-0.029) ng/mL C-Reactive Protein (0.00-1.30) mg/dL NT-Pro-B Natriuret Pep 1169 H (0-900) pg/mL Total Protein 5.2 L (6.3-8.2) g/dL Albumin 2.8 L (3.9-5) g/dL Triglycerides (2-149) mg/dL HDL Cholesterol (40-59) mg/dL Arterial Blood Glucose 421 H (65-95) mg/dL 11/09/20 11/09/20 11/09/20 Range/Units 20:07 20:07 23:05 WBC (4.5-11.0) K/mm3 RBC (3.65-5.03) M/mm3 Plt Count (140-440) K/mm3 Lymph % (Auto) (13.4-35.0) % Seg Neutrophils % (40.0-70.0) % Seg Neuts % (Manual) (40.0-70.0) % Lymphocytes % (Manual) (13.4-35.0) % Seg Neutrophils # Man (1.8-7.7) K/mm3 Lymphocytes # (Manual) (1.2-5.4) K/mm3 PT (12.2-14.9) Sec. INR (0.87-1.13) APTT (24.2-36.6) Sec. Fibrinogen (211-480) mg/dl D-Dimer (0-234) ng/mlDDU Heparin Anti-Xa Level (0.3-0.7) U.I./ml ABG pH (7.320-7.450) POC ABG pO2 (83-108) mmHg ABG Hemoglobin (12.0-17.5) ABG Oxyhemoglobin (94-98) ABG Sodium (136.0-145.0) mmol/L ABG Potassium (3.40-4.50) mmol/L ABG Glucose (65-95) mg/dL Carboxyhemoglobin (0.5-1.5) Sodium (137-145) mmol/L Potassium (3.6-5.0) mmol/L Carbon Dioxide (22-30) mmol/L BUN (7-17) mg/dL Creatinine (0.6-1.2) mg/dL Glucose (65-100) mg/dL Lactic Acid 9.00 H* (0.7-2.0) mmol/L AST (5-40) units/L ALT (7-56) units/L Lactate Dehydrogenase (91-180) units/L Total Creatine Kinase 340 H 449 H (30-135) units/L CK-MB (CK-2) 14.2 H 18.4 H (0.0-4.0) ng/mL CK-MB (CK-2) Rel Index 4.1 H (0-4) Troponin T 0.553 H* D 0.873 H* D (0.00-0.029) ng/mL C-Reactive Protein (0.00-1.30) mg/dL NT-Pro-B Natriuret Pep (0-900) pg/mL Total Protein (6.3-8.2) g/dL Albumin (3.9-5) g/dL Triglycerides (2-149) mg/dL HDL Cholesterol (40-59) mg/dL Arterial Blood Glucose (65-95) mg/dL 11/09/20 11/10/20 11/10/20 Range/Units 23:05 00:42 04:28 WBC (4.5-11.0) K/mm3 RBC (3.65-5.03) M/mm3 Plt Count (140-440) K/mm3 Lymph % (Auto) (13.4-35.0) % Seg Neutrophils % (40.0-70.0) % Seg Neuts % (Manual) (40.0-70.0) % Lymphocytes % (Manual) (13.4-35.0) % Seg Neutrophils # Man (1.8-7.7) K/mm3 Lymphocytes # (Manual) (1.2-5.4) K/mm3 PT 19.8 H 20.3 H (12.2-14.9) Sec. INR 1.63 H 1.69 H (0.87-1.13) APTT (24.2-36.6) Sec. Fibrinogen 210 L (211-480) mg/dl D-Dimer > 40436 H (0-234) ng/mlDDU Heparin Anti-Xa Level 0.79 H (0.3-0.7) U.I./ml ABG pH (7.320-7.450) POC ABG pO2 (83-108) mmHg ABG Hemoglobin (12.0-17.5) ABG Oxyhemoglobin (94-98) ABG Sodium (136.0-145.0) mmol/L ABG Potassium (3.40-4.50) mmol/L ABG Glucose (65-95) mg/dL Carboxyhemoglobin (0.5-1.5) Sodium (137-145) mmol/L Potassium (3.6-5.0) mmol/L Carbon Dioxide (22-30) mmol/L BUN (7-17) mg/dL Creatinine (0.6-1.2) mg/dL Glucose (65-100) mg/dL Lactic Acid 6.80 H* (0.7-2.0) mmol/L AST (5-40) units/L ALT (7-56) units/L Lactate Dehydrogenase (91-180) units/L Total Creatine Kinase (30-135) units/L CK-MB (CK-2) (0.0-4.0) ng/mL CK-MB (CK-2) Rel Index (0-4) Troponin T (0.00-0.029) ng/mL C-Reactive Protein (0.00-1.30) mg/dL NT-Pro-B Natriuret Pep (0-900) pg/mL Total Protein (6.3-8.2) g/dL Albumin (3.9-5) g/dL Triglycerides (2-149) mg/dL HDL Cholesterol (40-59) mg/dL Arterial Blood Glucose (65-95) mg/dL 11/10/20 11/10/20 11/10/20 Range/Units 04:28 04:28 04:28 WBC 17.7 H (4.5-11.0) K/mm3 RBC (3.65-5.03) M/mm3 Plt Count (140-440) K/mm3 Lymph % (Auto) (13.4-35.0) % Seg Neutrophils % (40.0-70.0) % Seg Neuts % (Manual) 96.0 H (40.0-70.0) % Lymphocytes % (Manual) 1.0 L (13.4-35.0) % Seg Neutrophils # Man 17.0 H (1.8-7.7) K/mm3 Lymphocytes # (Manual) 0.2 L (1.2-5.4) K/mm3 PT (12.2-14.9) Sec. INR (0.87-1.13) APTT (24.2-36.6) Sec. Fibrinogen (211-480) mg/dl D-Dimer (0-234) ng/mlDDU Heparin Anti-Xa Level (0.3-0.7) U.I./ml ABG pH (7.320-7.450) POC ABG pO2 (83-108) mmHg ABG Hemoglobin (12.0-17.5) ABG Oxyhemoglobin (94-98) ABG Sodium (136.0-145.0) mmol/L ABG Potassium (3.40-4.50) mmol/L ABG Glucose (65-95) mg/dL Carboxyhemoglobin (0.5-1.5) Sodium 136 L (137-145) mmol/L Potassium 3.3 L (3.6-5.0) mmol/L Carbon Dioxide 16 L (22-30) mmol/L BUN 21 H (7-17) mg/dL Creatinine 1.8 H (0.6-1.2) mg/dL Glucose 376 H (65-100) mg/dL Lactic Acid (0.7-2.0) mmol/L AST (5-40) units/L ALT (7-56) units/L Lactate Dehydrogenase 1637 H (91-180) units/L Total Creatine Kinase (30-135) units/L CK-MB (CK-2) (0.0-4.0) ng/mL CK-MB (CK-2) Rel Index (0-4) Troponin T (0.00-0.029) ng/mL C-Reactive Protein 3.50 H (0.00-1.30) mg/dL NT-Pro-B Natriuret Pep (0-900) pg/mL Total Protein (6.3-8.2) g/dL Albumin (3.9-5) g/dL Triglycerides (2-149) mg/dL HDL Cholesterol (40-59) mg/dL Arterial Blood Glucose (65-95) mg/dL 11/10/20 11/10/20 Range/Units 04:28 05:13 WBC (4.5-11.0) K/mm3 RBC (3.65-5.03) M/mm3 Plt Count (140-440) K/mm3 Lymph % (Auto) (13.4-35.0) % Seg Neutrophils % (40.0-70.0) % Seg Neuts % (Manual) (40.0-70.0) % Lymphocytes % (Manual) (13.4-35.0) % Seg Neutrophils # Man (1.8-7.7) K/mm3 Lymphocytes # (Manual) (1.2-5.4) K/mm3 PT (12.2-14.9) Sec. INR (0.87-1.13) APTT (24.2-36.6) Sec. Fibrinogen (211-480) mg/dl D-Dimer (0-234) ng/mlDDU Heparin Anti-Xa Level (0.3-0.7) U.I./ml ABG pH 7.221 L (7.320-7.450) POC ABG pO2 162.0 H (83-108) mmHg ABG Hemoglobin 11.7 L (12.0-17.5) ABG Oxyhemoglobin 98.9 H (94-98) ABG Sodium 133.6 L (136.0-145.0) mmol/L ABG Potassium 3.1 L (3.40-4.50) mmol/L ABG Glucose 346 H (65-95) mg/dL Carboxyhemoglobin 0.1 L (0.5-1.5) Sodium (137-145) mmol/L Potassium (3.6-5.0) mmol/L Carbon Dioxide (22-30) mmol/L BUN (7-17) mg/dL Creatinine (0.6-1.2) mg/dL Glucose (65-100) mg/dL Lactic Acid 6.10 H* (0.7-2.0) mmol/L AST (5-40) units/L ALT (7-56) units/L Lactate Dehydrogenase (91-180) units/L Total Creatine Kinase (30-135) units/L CK-MB (CK-2) (0.0-4.0) ng/mL CK-MB (CK-2) Rel Index (0-4) Troponin T (0.00-0.029) ng/mL C-Reactive Protein (0.00-1.30) mg/dL NT-Pro-B Natriuret Pep (0-900) pg/mL Total Protein (6.3-8.2) g/dL Albumin (3.9-5) g/dL Triglycerides (2-149) mg/dL HDL Cholesterol (40-59) mg/dL Arterial Blood Glucose 346 H (65-95) mg/dL Medications & Allergies - Medications Allergies/Adverse Reactions: Allergies No Known Allergies Allergy (Verified 11/09/20 17:19) Active Medications: Generic Name Dose Route Start Last Admin Trade Name Freq PRN Reason Stop Dose Admin Acetaminophen 650 mg 11/09/20 23:07 Acetaminophen 650 Mg Rect Supp NC Q6H PRN Pain MILD(1-3)/Fever >100.5/REYES Acetaminophen 650 mg 11/09/20 23:59 Acetaminophen 325 Mg Tab PO Q6H PRN Pain, Mild (1-3) Hydrocodone Bitart/Acetaminophen 2 each 11/09/20 23:59 Hydrocodone/Acetaminophen 5-325 Mg Tab PO Q6H PRN Pain, Moderate (4-6) Famotidine 10 mg 11/10/20 10:00 11/10/20 09:48 Famotidine 20 Mg/2 Ml Inj IV 10 mg BID MELONY Administration Fentanyl 50 mcg 11/09/20 22:37 Fentanyl 100 Mcg/2 Ml Inj IV Q10MIN PRN ANALGESIA Heparin Sodium (Porcine) 3,200 unit 11/10/20 11:33 Heparin 10,000 Units/10 Ml Vial 40 unit/kg (3200 unit) IV Q6H PRN Anti-Xa Assay < 0.1 units/ml Hydrophilic Ointment 1 applic 11/09/20 17:08 Lip Therapy Vaseline TP Q2H PRN Dry Lips Propofol 1,000 mg in 100 mls @ 2.245 mls/hr 11/09/20 18:00 11/10/20 10:23 Diprivan 10 Mg/Ml IV 25 mcg/kg/min TITR MELONY 11.226 mls/hr Administration Protocol 5 MCG/KG/MIN NORepinephrine/NS 8 MG-250 ML 8 mg in 250 mls @ 3.75 mls/hr 11/09/20 18:00 11/10/20 07:18 Norepinephrine/Ns 8 Mg-250 Ml (Double Conc) IV 14 mcg/min TITRATE MELONY 26.25 mls/hr Titration Protocol 2 MCG/MIN Dopamine HCl/Dextrose 800 mg in 250 mls @ 2.807 mls/hr 11/09/20 17:48 11/10/20 03:09 Intropin Drip 800 Mg/D5w 250 Ml IV 11/13/20 10:51 14 mcg/kg/min TITR ONE 19.646 mls/hr Titration Protocol 2 MCG/KG/MIN Fentanyl Citrate 2,000 mcg in 100 mls @ 11.226 mls/hr 11/09/20 23:00 11/10/20 02:00 Fentanyl Drip Premix IV 1 mcg/kg/hr TITR MELONY 3.742 mls/hr Titration Protocol 3 MCG/KG/HR Ceftriaxone Sodium 2 gm in 100 mls @ 200 mls/hr 11/09/20 23:45 11/10/20 05:29 Rocephin/Ns 2 Gm/100 Ml IV 200 mls/hr Q24HR MELONY Administration Protocol Azithromycin 500 mg in 250 mls @ 250 mls/hr 11/09/20 23:45 11/10/20 05:29 Zithromax/Ns IV 250 mls/hr Q24HR MELONY Administration Protocol Sodium Chloride 1,000 mls @ 30 mls/hr 11/09/20 23:45 Nacl 0.9% 1000 Ml IV DIRECT MELONY Potassium Chloride 10 meq in 100 mls @ 100 mls/hr 11/10/20 10:00 11/10/20 09:39 Kcl 10meq/100ml IV 11/10/20 11:59 100 mls/hr Q1H MELONY Administration Potassium Chloride/Sodium Chloride 20 meq in 1,000 mls @ 75 mls/hr 11/10/20 12:00 Ns/Kcl 20meq IV DIRECT MELONY Heparin Sodium/Sodium Chloride 25,000 unit in 500 mls @ 24 mls/hr 11/10/20 12:00 Heparin/ 0.45% Nacl-25,000 Unit/500 Ml IV TITR MELONY Protocol 15 UNITS/KG/HR Magnesium Hydroxide 30 ml 11/09/20 23:07 Magnesium Hydroxide (Mom) Oral Liqd Udc PO Q4H PRN Constipation Morphine Sulfate 2 mg 11/09/20 23:07 Morphine 2 Mg/1 Ml Inj IV Q4H PRN Pain, Moderate (4-6) Morphine Sulfate 4 mg 11/09/20 23:07 Morphine 4 Mg/1 Ml Inj IV Q4H PRN Pain , Severe (7-10) Morphine Sulfate 4 mg 11/09/20 23:59 Morphine 4 Mg/1 Ml Inj IV Q4H PRN Pain , Severe (7-10) Multi-Ingred Cream/Lotion/Oil/Oint 1 applic 11/09/20 17:08 Mineral Oil/Petrolatum, White Ophth Oint 3.5 Gm OU Q4H PRN Dry Eye(s) Ondansetron HCl 4 mg 11/09/20 23:07 Ondansetron 4 Mg/2 Ml Inj IV Q8H PRN Nausea And Vomiting Senna/Docusate Sodium 1 tab 11/09/20 22:00 11/10/20 02:34 Sennosides/Docusate Sodium 8.6/50 Mg Tab FEEDTUBE Not Given BID MELONY Sodium Chloride 10 ml 11/10/20 10:00 Sodium Chloride 0.9% 10 Ml Flush Syringe IV BID MELONY Sodium Chloride 10 ml 11/09/20 23:07 Sodium Chloride 0.9% 10 Ml Flush Syringe IV PRN PRN LINE FLUSH HEART Score - HEART Score Troponin: Troponin T 0.873 ng/mL (0.00-0.029) H* D 11/09/20 23:05
[2020-11-10] MEDS ORDERED: NACL 0.9%/KCL 20 MEQ 20 MEQ/1,000 ML BAG IV SCH (12:00)
--- NOTE | 2020-11-10 12:18 | Consultation ---
History of Present Illness Consult date: 11/10/20 Requesting physician: TIN PACHECO Consult reason: cardiac arrest History of present illness: 84-year-old female with obesity hypertension history obtained from the chart and the daughter patient several weeks ago was taken up to [place] by her daughter to visit relatives. Was coming back stopped in [place] for a bathroom break and there she felt lightheaded and dizziness as per the daughter EMS was called and was told had some type of heart event but was stable enough to drive back home. Patient was taken to the [place] [facility] where she had a low blood pressure and a triple-lumen placed in her right common femoral vein. Patient was transported by EMS to the emergency room where the patient subsequently coded and was brought back CT of the head was negative but CTA chest showed RV dysfunction dilation with multiple segmental pulmonary embolism patient was taken emergently to the [facility] for [facility]. Patient brought back had removal and RV pressures were 50/20 mmHg requiring pressors. And is on the ventilator as per the family patient has been vaccinated for Covid denies any fever chills melena or any sy mptoms during her stay in [place] Past History Past Medical History: arthritis, hypertension, renal failure, other (Chronic Right Bundle Branch Block) Past Surgical History: No surgical history Social history: no significant social history Medications and Allergies Allergies Allergy/AdvReac Type Severity Reaction Status Date / Time No Known Allergies Allergy Verified 11/09/20 17:19 Active Meds: Active Medications Acetaminophen (Acetaminophen 650 Mg Rect Supp) 650 mg [place] Q6H PRN PRN Reason: Pain MILD(1-3)/Fever >100.5/REYES Acetaminophen (Acetaminophen 325 Mg Tab) 650 mg PO Q6H PRN PRN Reason: Pain, Mild (1-3) Hydrocodone Bitart/Acetaminophen (Hydrocodone/Acetaminophen 5-325 Mg Tab) 2 each PO Q6H PRN PRN Reason: Pain, Moderate (4-6) Famotidine (Famotidine 20 Mg/2 Ml Inj) 10 mg IV BID MELONY Last Admin: 11/10/20 09:48 Dose: 10 mg Documented by: Fentanyl (Fentanyl 100 Mcg/2 Ml Inj) 50 mcg IV Q10MIN PRN PRN Reason: ANALGESIA Hydrophilic Ointment (Lip Therapy Vaseline) 1 applic TP Q2H PRN PRN Reason: Dry Lips Propofol (Diprivan 10 Mg/Ml) 1,000 mg in 100 mls @ 2.245 mls/hr IV TITR MELONY; Protocol Last Admin: 11/10/20 10:23 Dose: 25 mcg/kg/min, 11.226 mls/hr Documented by: NORepinephrine/NS 8 MG-250 ML (Norepinephrine/Ns 8 Mg-250 Ml (Double Conc)) 8 mg in 250 mls @ 3.75 mls/hr IV TITRATE MELONY; Protocol Last Titration: 11/10/20 07:18 Dose: 14 mcg/min, 26.25 mls/hr Documented by: Dopamine HCl/Dextrose (Intropin Drip 800 Mg/D5w 250 Ml) 800 mg in 250 mls @ 2.807 mls/hr IV TITR ONE; Protocol Stop: 11/13/20 10:51 Last Titration: 11/10/20 03:09 Dose: 14 mcg/kg/min, 19.646 mls/hr Documented by: Fentanyl Citrate (Fentanyl Drip Premix) 2,000 mcg in 100 mls @ 11.226 mls/hr IV TITR MELONY; Protocol Last Titration: 11/10/20 02:00 Dose: 1 mcg/kg/hr, 3.742 mls/hr Documented by: Ceftriaxone Sodium (Rocephin/Ns 2 Gm/100 Ml) 2 gm in 100 mls @ 200 mls/hr IV Q24HR MELONY; Protocol Last Admin: 11/10/20 05:29 Dose: 200 mls/hr Documented by: Azithromycin (Zithromax/Ns) 500 mg in 250 mls @ 250 mls/hr IV Q24HR MELONY; Protocol Last Admin: 11/10/20 05:29 Dose: 250 mls/hr Documented by: Sodium Chloride (Nacl 0.9% 1000 Ml) 1,000 mls @ 30 mls/hr IV DIRECT MELONY Potassium Chloride/Sodium Chloride (Ns/Kcl 20meq) 20 meq in 1,000 mls @ 75 mls/hr IV DIRECT MELONY Heparin Sodium/Sodium Chloride (Heparin/ 0.45% Nacl-25,000 Unit/500 Ml) 25,000 unit in 500 mls @ 24 mls/hr IV TITR MELONY; Protocol Magnesium Hydroxide (Magnesium Hydroxide (Mom) Oral Liqd Udc) 30 ml PO Q4H PRN PRN Reason: Constipation Morphine Sulfate (Morphine 2 Mg/1 Ml Inj) 2 mg IV Q4H PRN PRN Reason: Pain, Moderate (4-6) Morphine Sulfate (Morphine 4 Mg/1 Ml Inj) 4 mg IV Q4H PRN PRN Reason: Pain , Severe (7-10) Multi-Ingred Cream/Lotion/Oil/Oint (Mineral Oil/Petrolatum, White Ophth Oint 3.5 Gm) 1 applic OU Q4H PRN PRN Reason: Dry Eye(s) Ondansetron HCl (Ondansetron 4 Mg/2 Ml Inj) 4 mg IV Q8H PRN PRN Reason: Nausea And Vomiting Senna/Docusate Sodium (Sennosides/Docusate Sodium 8.6/50 Mg Tab) 1 tab FEEDTUBE BID MELONY Last Admin: 11/10/20 02:34 Dose: Not Given Documented by: Sodium Chloride (Sodium Chloride 0.9% 10 Ml Flush Syringe) 10 ml IV BID MELONY Sodium Chloride (Sodium Chloride 0.9% 10 Ml Flush Syringe) 10 ml IV PRN PRN PRN Reason: LINE FLUSH Review of Systems ROS unobtainable: due to endotracheal tube Physical Examination Vital Signs Pulse Resp 121 H 10 L 11/09/20 17:14 11/09/20 17:14 General appearance: mild distress HEENT: Positive: PERRL Neck: Positive: neck supple Cardiac: Positive: Irregularly Regular Lungs: Positive: clear to auscultation Neuro: Positive: Other Abdomen: Positive: Soft Female genitourinary: deferred Extremities: Present: normal. Absent: edema Results 11/10/20 04:28 11/10/20 04:28 Cardiac Enzymes 11/09/20 11/09/20 11/09/20 Range/Units 17:24 17:24 20:07 AST 312 H (5-40) units/L Lactate Dehydrogenase (91-180) units/L CK-MB (CK-2) 5.0 H 14.2 H (0.0-4.0) ng/mL 11/09/20 11/10/20 Range/Units 23:05 04:28 AST (5-40) units/L Lactate Dehydrogenase 1637 H (91-180) units/L CK-MB (CK-2) 18.4 H (0.0-4.0) ng/mL Coagulation 11/09/20 11/10/2021 Range/Units 17:24 00:42 04:28 PT 19.9 H 19.8 H 20.3 H (12.2-14.9) Sec. INR 1.64 H 1.63 H 1.69 H (0.87-1.13) APTT 49.2 H Not Reportable (24.2-36.6) Sec. Lipids 11/09/20 Range/Units 17:24 Triglycerides 163 H (2-149) mg/dL Cholesterol 118 (50-199) mg/dL HDL Cholesterol 29 L (40-59) mg/dL Cholesterol/HDL Ratio 4.06 % CBC 11/09/20 11/09/20 11/10/20 Range/Units 17:24 23:05 04:28 WBC 6.8 17.7 H (4.5-11.0) K/mm3 RBC 3.29 L 3.66 (3.65-5.03) M/mm3 Hgb 10.3 12.2 11.3 (10.1-14.3) gm/dl Hct 32.0 36.2 33.8 (30.3-42.9) % Plt Count 100 L 191 (140-440) K/mm3 Lymph # (Auto) 3.7 (1.2-5.4) K/mm3 [place] # (Auto) 0.3 (0.0-0.8) K/mm3 Eos # (Auto) 0.1 (0.0-0.4) K/mm3 Baso # (Auto) 0.1 (0.0-0.1) K/mm3 Comprehensive Metabolic Panel 11/09/20 11/09/20 11/10/20 Range/Units 17:24 17:24 04:28 Sodium 141 136 L (137-145) mmol/L Potassium 2.9 L* 3.3 L (3.6-5.0) mmol/L Chloride 103.3 101.7 (98-107) mmol/L Carbon Dioxide 13 L 16 L (22-30) mmol/L BUN 16 21 H (7-17) mg/dL Creatinine 1.4 H 1.8 H (0.6-1.2) mg/dL Glucose 391 H 376 H (65-100) mg/dL Calcium 9.4 8.5 (8.4-10.2) mg/dL Direct Bilirubin < 0.2 (0-0.2) mg/dL Indirect Bilirubin 0.1 mg/dL AST 312 H (5-40) units/L ALT 273 H (7-56) units/L Alkaline Phosphatase 84 (35-129) units/L Total Protein 5.2 L (6.3-8.2) g/dL Albumin 2.8 L (3.9-5) g/dL EKG interpretations - Telemetry EKG Rhythm: Atrial Fibrillation (Atrial fibrillation right bundle branch block) Assessment and Plan 84-year-old female with hypertension obesity suffered a cardiac arrest secondary to large pulmonary embolism with RV dysfunction and failure with a non-ST elevation CT hypotension and acute renal sufficiency continue IV fluids and pressures and IV heparin discussed in detail with the patient in detail spent over 30 minutes of critical care time in discussion with the patient and the care team poor prognosis - Patient Problems (1) Acute respiratory failure with hypoxia Current Visit: Yes Status: Acute (2) Non-STEMI (non-ST elevated myocardial infarction) Current Visit: Yes Status: Acute (3) Atrial fibrillation Current Visit: Yes Status: Acute Qualifiers: Atrial fibrillation type: persistent (not longstanding) Qualified Code(s): I48.19 - Other persistent atrial fibrillation; I48.1 - Persistent atrial fibrillation (4) RBBB Current Visit: Yes Status: Acute (5) Acute kidney injury Current Visit: Yes Status: Acute (6) Acute pulmonary embolism with acute cor pulmonale Current Visit: Yes Status: Acute Qualifiers: Pulmonary embolism type: saddle Qualified Code(s): I26.02 - Saddle embolus of pulmonary artery with acute cor pulmonale (7) Cardiopulmonary arrest Current Visit: Yes Status: Acute (8) Hypokalemia Current Visit: Yes Status: Acute
[2020-11-10 12:59] LABS: INR 1.53 (0.87-1.13)
[2020-11-10] MEDS: HEPARIN/ 0.45% NACL DRIP 25,000 UNIT/500 ML BAG IV SCH ×2 (13:00→21:41)
[2020-11-10 13:07] LABS: Partial Thromboplastin Time 204.8 Sec. (24.2-36.6)
[2020-11-10] MEDS ORDERED: POTASSIUM CHLORIDE 10 MEQ 10 MEQ/100 ML BAG IV ONE (14:10)
[2020-11-10 15:32] LABS: Basophils % (Auto) 0.1 % (0.0-1.8); Eosinophils % (Auto) 0.1 % (0.0-4.3); Hematocrit 29.5 % (30.3-42.9); Hemoglobin 9.7 gm/dl (10.1-14.3); Lymphocytes # (Auto) 1.2 K/mm3 (1.2-5.4); Lymphocytes % (Auto) 7.4 % (13.4-35.0); Mean Corpuscular HGB Conc 33 % (30-34); Mean Corpuscular Volume 92 fl (79-97); Monocytes # (Auto) 1.4 K/mm3 (0.0-0.8); Monocytes % (Auto) 8.7 % (0.0-7.3); Platelet Count 196 K/mm3 (140-440); Red Cell Distribution Width 14.4 % (13.2-15.2)
--- NOTE | 2020-11-10 15:41 | Consultation ---
History of Present Illness Consult date: 11/10/20 Requesting physician: UNRULY BYERS Reason for consult: other (Cardiac Arrest with ROSC; Acute Hypoxemic Respiratory Failure) History of present illness: PULMONARY/CCM CONSULT NOTE (Full dictation # [id number]) Please see dictated notes for full details Past History Past Medical History: arthritis, hypertension, renal failure, other (Chronic Right Bundle Branch Block) Past Surgical History: No surgical history Social history: no significant social history Medications and Allergies Allergies Allergy/AdvReac Type Severity Reaction Status Date / Time No Known Allergies Allergy Verified 11/09/20 17:19 Active Meds: Active Medications Acetaminophen (Acetaminophen 650 Mg Rect Supp) 650 mg [place] Q6H PRN PRN Reason: Pain MILD(1-3)/Fever >100.5/REYES Acetaminophen (Acetaminophen 325 Mg Tab) 650 mg PO Q6H PRN PRN Reason: Pain, Mild (1-3) Hydrocodone Bitart/Acetaminophen (Hydrocodone/Acetaminophen 5-325 Mg Tab) 2 each PO Q6H PRN PRN Reason: Pain, Moderate (4-6) Famotidine (Famotidine 20 Mg/2 Ml Inj) 10 mg IV BID MELONY Last Admin: 11/10/20 09:48 Dose: 10 mg Documented by: Fentanyl (Fentanyl 100 Mcg/2 Ml Inj) 50 mcg IV Q10MIN PRN PRN Reason: ANALGESIA Hydrophilic Ointment (Lip Therapy Vaseline) 1 applic TP Q2H PRN PRN Reason: Dry Lips Propofol (Diprivan 10 Mg/Ml) 1,000 mg in 100 mls @ 2.245 mls/hr IV TITR MELONY; P rotocol Last Admin: 11/10/20 10:23 Dose: 25 mcg/kg/min, 11.226 mls/hr Documented by: NORepinephrine/NS 8 MG-250 ML (Norepinephrine/Ns 8 Mg-250 Ml (Double Conc)) 8 mg in 250 mls @ 3.75 mls/hr IV TITRATE MELONY; Protocol Last Titration: 11/10/20 13:00 Dose: 30 mcg/min, 56.25 mls/hr Documented by: Dopamine HCl/Dextrose (Intropin Drip 800 Mg/D5w 250 Ml) 800 mg in 250 mls @ 2.807 mls/hr IV TITR ONE; Protocol Stop: 11/13/20 10:51 Last Titration: 11/10/20 11:30 Dose: 10 mcg/kg/min, 14.033 mls/hr Documented by: Fentanyl Citrate (Fentanyl Drip Premix) 2,000 mcg in 100 mls @ 11.226 mls/hr IV TITR MELONY; Protocol Last Titration: 11/10/20 02:00 Dose: 1 mcg/kg/hr, 3.742 mls/hr Documented by: Ceftriaxone Sodium (Rocephin/Ns 2 Gm/100 Ml) 2 gm in 100 mls @ 200 mls/hr IV Q24HR MELONY; Protocol Last Admin: 11/10/20 05:29 Dose: 200 mls/hr Documented by: Azithromycin (Zithromax/Ns) 500 mg in 250 mls @ 250 mls/hr IV Q24HR MELONY; Protocol Last Admin: 11/10/20 05:29 Dose: 250 mls/hr Documented by: Sodium Chloride (Nacl 0.9% 1000 Ml) 1,000 mls @ 30 mls/hr IV DIRECT MELONY Potassium Chloride/Sodium Chloride (Ns/Kcl 20meq) 20 meq in 1,000 mls @ 75 mls/hr IV DIRECT MELONY Heparin Sodium/Sodium Chloride (Heparin/ 0.45% Nacl-25,000 Unit/500 Ml) 25,000 unit in 500 mls @ 24 mls/hr IV TITR MELONY; Protocol Last Admin: 11/10/20 13:00 Dose: 900 units/hr, 18 mls/hr Documented by: Magnesium Hydroxide (Magnesium Hydroxide (Mom) Oral Liqd Udc) 30 ml PO Q4H PRN PRN Reason: Constipation Morphine Sulfate (Morphine 2 Mg/1 Ml Inj) 2 mg IV Q4H PRN PRN Reason: Pain, Moderate (4-6) Morphine Sulfate (Morphine 4 Mg/1 Ml Inj) 4 mg IV Q4H PRN PRN Reason: Pain , Severe (7-10) Multi-Ingred Cream/Lotion/Oil/Oint (Mineral Oil/Petrolatum, White Ophth Oint 3.5 Gm) 1 applic OU Q4H PRN PRN Reason: Dry Eye(s) Ondansetron HCl (Ondansetron 4 Mg/2 Ml Inj) 4 mg IV Q8H PRN PRN Reason: Nausea And Vomiting Senna/Docusate Sodium (Sennosides/Docusate Sodium 8.6/50 Mg Tab) 1 tab FEEDTUBE BID MELONY Last Admin: 11/10/20 02:34 Dose: Not Given Documented by: Sodium Chloride (Sodium Chloride 0.9% 10 Ml Flush Syringe) 10 ml IV BID MELONY Sodium Chloride (Sodium Chloride 0.9% 10 Ml Flush Syringe) 10 ml IV PRN PRN PRN Reason: LINE FLUSH Physical Examination Vital signs: Vital Signs Pulse Resp 121 H 10 L 11/09/20 17:14 11/09/20 17:14 Results - Laboratory Findings CBC and BMP: 11/10/20 15:08 11/10/20 04:28 ABG ABG pH 7.221 (7.320-7.450) L 11/10/20 05:13 POC ABG pCO2 43.4 mmHg (32.0-48.0) 11/10/20 05:13 POC ABG pO2 162.0 mmHg (83-108) H 11/10/20 05:13 POC ABG HCO3 17.4 11/10/20 05:13 ABG O2 Saturation 99.1 (0-100) 11/10/20 05:13 PT/INR, D-dimer PT 18.9 Sec. (12.2-14.9) H 11/10/20 12:30 INR 1.53 (0.87-1.13) H 11/10/20 12:30 D-Dimer > 86264 ng/mlDDU (0-234) H 11/10/20 04:28 Abnormal lab findings: Abnormal Labs 11/09/20 11/09/20 11/09/20 17:24 17:24 17:24 WBC RBC 3.29 L Hgb Hct Plt Count 100 L Lymph % (Auto) 54.6 H [place] % (Auto) [place] # (Auto) Seg Neutrophils % 38.5 L Seg Neuts % (Manual) Lymphocytes % (Manual) Seg Neutrophils # Seg Neutrophils # Man Lymphocytes # (Manual) PT 19.9 H INR 1.64 H APTT 49.2 H Fibrinogen D-Dimer > 82633 H Heparin Anti-Xa Level ABG pH POC ABG pO2 ABG Hemoglobin ABG Oxyhemoglobin ABG Sodium ABG Potassium ABG Glucose Carboxyhemoglobin Sodium Potassium 2.9 L* Carbon Dioxide 13 L BUN Creatinine 1.4 H Glucose 391 H Lactic Acid AST ALT Lactate Dehydrogenase Total Creatine Kinase CK-MB (CK-2) 5.0 H CK-MB (CK-2) Rel Index 4.8 H Troponin T 0.263 H* C-Reactive Protein NT-Pro-B Natriuret Pep Total Protein Albumin Triglycerides 163 H HDL Cholesterol 29 L Arterial Blood Glucose 11/09/20 11/09/20 11/09/20 17:24 18:11 18:21 WBC RBC Hgb Hct Plt Count Lymph % (Auto) [place] % (Auto) [place] # (Auto) Seg Neutrophils % Seg Neuts % (Manual) Lymphocytes % (Manual) Seg Neutrophils # Seg Neutrophils # Man Lymphocytes # (Manual) PT INR APTT Fibrinogen D-Dimer Heparin Anti-Xa Level ABG pH 7.053 L POC ABG pO2 159.6 H ABG Hemoglobin ABG Oxyhemoglobin ABG Sodium 135.1 L ABG Potassium ABG Glucose 421 H Carboxyhemoglobin 0.3 L Sodium Potassium Carbon Dioxide BUN Creatinine Glucose Lactic Acid 11.40 H* AST 312 H ALT 273 H Lactate Dehydrogenase Total Creatine Kinase CK-MB (CK-2) CK-MB (CK-2) Rel Index Troponin T C-Reactive Protein NT-Pro-B Natriuret Pep 1169 H Total Protein 5.2 L Albumin 2.8 L Triglycerides HDL Cholesterol Arterial Blood Glucose 421 H 11/09/20 11/09/20 11/09/20 20:07 20:07 23:05 WBC RBC Hgb Hct Plt Count Lymph % (Auto) [place] % (Auto) [place] # (Auto) Seg Neutrophils % Seg Neuts % (Manual) Lymphocytes % (Manual) Seg Neutrophils # Seg Neutrophils # Man Lymphocytes # (Manual) PT INR APTT Fibrinogen D-Dimer Heparin Anti-Xa Level ABG pH POC ABG pO2 ABG Hemoglobin ABG Oxyhemoglobin ABG Sodium ABG Potassium ABG Glucose Carboxyhemoglobin Sodium Potassium Carbon Dioxide BUN Creatinine Glucose Lactic Acid 9.00 H* AST ALT Lactate Dehydrogenase Total Creatine Kinase 340 H 449 H CK-MB (CK-2) 14.2 H 18.4 H CK-MB (CK-2) Rel Index 4.1 H Troponin T 0.553 H* D 0.873 H* D C-Reactive Protein NT-Pro-B Natriuret Pep Total Protein Albumin Triglycerides HDL Cholesterol Arterial Blood Glucose 11/09/20 11/10/20 11/10/20 23:05 00:42 04:28 WBC RBC Hgb Hct Plt Count Lymph % (Auto) [place] % (Auto) [place] # (Auto) Seg Neutrophils % Seg Neuts % (Manual) Lymphocytes % (Manual) Seg Neutrophils # Seg Neutrophils # Man Lymphocytes # (Manual) PT 19.8 H 20.3 H INR 1.63 H 1.69 H APTT Fibrinogen 210 L D-Dimer > 78091 H Heparin Anti-Xa Level 0.79 H ABG pH POC ABG pO2 ABG Hemoglobin ABG Oxyhemoglobin ABG Sodium ABG Potassium ABG Glucose Carboxyhemoglobin Sodium Potassium Carbon Dioxide BUN Creatinine Glucose Lactic Acid 6.80 H* AST ALT Lactate Dehydrogenase Total Creatine Kinase CK-MB (CK-2) CK-MB (CK-2) Rel Index Troponin T C-Reactive Protein NT-Pro-B Natriuret Pep Total Protein Albumin Triglycerides HDL Cholesterol Arterial Blood Glucose 11/10/20 11/10/20 11/10/20 04:28 04:28 04:28 WBC 17.7 H RBC Hgb Hct Plt Count Lymph % (Auto) [place] % (Auto) [place] # (Auto) Seg Neutrophils % Seg Neuts % (Manual) 96.0 H Lymphocytes % (Manual) 1.0 L Seg Neutrophils # Seg Neutrophils # Man 17.0 H Lymphocytes # (Manual) 0.2 L PT INR APTT Fibrinogen D-Dimer Heparin Anti-Xa Level ABG pH POC ABG pO2 ABG Hemoglobin ABG Oxyhemoglobin ABG Sodium ABG Potassium ABG Glucose Carboxyhemoglobin Sodium 136 L Potassium 3.3 L Carbon Dioxide 16 L BUN 21 H Creatinine 1.8 H Glucose 376 H Lactic Acid AST ALT Lactate Dehydrogenase 1637 H Total Creatine Kinase CK-MB (CK-2) CK-MB (CK-2) Rel Index Troponin T C-Reactive Protein 3.50 H NT-Pro-B Natriuret Pep Total Protein Albumin Triglycerides HDL Cholesterol Arterial Blood Glucose 11/10/20 11/10/20 11/10/20 04:28 05:13 12:30 WBC RBC Hgb Hct Plt Count Lymph % (Auto) [place] % (Auto) [place] # (Auto) Seg Neutrophils % Seg Neuts % (Manual) Lymphocytes % (Manual) Seg Neutrophils # Seg Neutrophils # Man Lymphocytes # (Manual) PT 18.9 H INR 1.53 H APTT 204.8 H* Fibrinogen D-Dimer Heparin Anti-Xa Level 0.76 H ABG pH 7.221 L POC ABG pO2 162.0 H ABG Hemoglobin 11.7 L ABG Oxyhemoglobin 98.9 H ABG Sodium 133.6 L ABG Potassium 3.1 L ABG Glucose 346 H Carboxyhemoglobin 0.1 L Sodium Potassium Carbon Dioxide BUN Creatinine Glucose Lactic Acid 6.10 H* AST ALT Lactate Dehydrogenase Total Creatine Kinase CK-MB (CK-2) CK-MB (CK-2) Rel Index Troponin T C-Reactive Protein NT-Pro-B Natriuret Pep Total Protein Albumin Triglycerides HDL Cholesterol Arterial Blood Glucose 346 H 11/10/20 15:08 WBC 16.1 H RBC 3.20 L Hgb 9.7 L Hct 29.5 L Plt Count Lymph % (Auto) 7.4 L [place] % (Auto) 8.7 H [place] # (Auto) 1.4 H Seg Neutrophils % 83.7 H Seg Neuts % (Manual) Lymphocytes % (Manual) Seg Neutrophils # 13.5 H Seg Neutrophils # Man Lymphocytes # (Manual) PT INR APTT Fibrinogen D-Dimer Heparin Anti-Xa Level ABG pH POC ABG pO2 ABG Hemoglobin ABG Oxyhemoglobin ABG Sodium ABG Potassium ABG Glucose Carboxyhemoglobin Sodium Potassium Carbon Dioxide BUN Creatinine Glucose Lactic Acid AST ALT Lactate Dehydrogenase Total Creatine Kinase CK-MB (CK-2) CK-MB (CK-2) Rel Index Troponin T C-Reactive Protein NT-Pro-B Natriuret Pep Total Protein Albumin Triglycerides HDL Cholesterol Arterial Blood Glucose
[2020-11-10] MEDS: PANTOPRAZOLE 80 MG in SODIUM CHLORIDE 0.9% 100 ML IV SCH (17:56)
[2020-11-10 18:09] LABS: Chloride, Urine 38.8 mmolL (110-250); Creatinine,Urine 80.9 mg/dL (0.1-20.0)
[2020-11-10 18:36] LABS: ABG Base Excess -9.2 mmol/L (-2.0-3.0); ABG HCO3 18.3 mmol/L (20.0-26.0); ABG Methemoglobin 0.6 % (0.0-1.5); ABG Oxygen Saturation 95.8 % (95.0-99.0); ABG PCO2 47.2 mm Hg; ABG PH 7.206 pH Units (7.350-7.450); ABG PO2 83.7 mm Hg (80.0-90.0)
--- NOTE | 2020-11-10 18:40 | Gastroenterology Consultation ---
History of Present Illness - Reason for Consult Consult date: 11/10/20 gi bleed Requesting physician: TAYE NICHOLAS - History of Present Illness History obtained from chart as well as from patient's nurse as patient remains intubated In brief patient brought via ambulance for difficulty breathing went into cardiac arrest found to have pulmonary emboli status post IR thrombectomy and IVC filter placement, GI consulted for GI bleeding I spoke with the patient's nurse she reports some blood around the mouth and nose started this morning. She reports has been relatively small volume and there has been no melena and no bloody output from the stool Past History Past Medical History: arthritis, hypertension, renal failure, other (Chronic Right Bundle Branch Block) Past Surgical History: No surgical history Social history: no significant social history Medications and Allergies Allergies Allergy/AdvReac Type Severity Reaction Status Date / Time No Known Allergies Allergy Verified 11/09/20 17:19 Active Meds: Active Medications Acetaminophen (Acetaminophen 650 Mg Rect Supp) 650 mg NM Q6H PRN PRN Reason: Pain MILD(1-3)/Fever >100.5/REYES Acetaminophen (Acetaminophen 325 Mg Tab) 650 mg PO Q6H PRN PRN Reason: Pain, Mild (1-3) Hydrocodone Bitart/Acetaminophen (Hydrocodone/Acetaminophen 5-325 Mg Tab) 2 each PO Q6H PRN PRN Reason: Pain, Moderate (4-6) Fentanyl (Fentanyl 100 Mcg/2 Ml Inj) 50 mcg IV Q10MIN PRN PRN Reason: ANALGESIA Hydralazine HCl (Hydralazine 20 Mg/1 Ml Inj) 10 mg IV Q6H PRN PRN Reason: Blood Pressure Hydrophilic Ointment (Lip Therapy Vaseline) 1 applic TP Q2H PRN PRN Reason: Dry Lips Propofol (Diprivan 10 Mg/Ml) 1,000 mg in 100 mls @ 2.245 mls/hr IV TITR MELONY; Protocol Last Titration: 11/10/20 14:20 Dose: 15 mcg/kg/min, 6.736 mls/hr Documented by: NORepinephrine/NS 8 MG-250 ML (Norepinephrine/Ns 8 Mg-250 Ml (Double Conc)) 8 mg in 250 mls @ 3.75 mls/hr IV TITRATE MELONY; Protocol Last Admin: 11/10/20 17:40 Dose: 30 mcg/min, 56.25 mls/hr Documented by: Dopamine HCl/Dextrose (Intropin Drip 800 Mg/D5w 250 Ml) 800 mg in 250 mls @ 2.807 mls/hr IV TITR ONE; Protocol Stop: 11/13/20 10:51 Last Titration: 11/10/20 11:30 Dose: 10 mcg/kg/min, 14.033 mls/hr Documented by: Fentanyl Citrate (Fentanyl Drip Premix) 2,000 mcg in 100 mls @ 11.226 mls/hr IV TITR MELONY; Protocol Last Titration: 11/10/20 02:00 Dose: 1 mcg/kg/hr, 3.742 mls/hr Documented by: Ceftriaxone Sodium (Rocephin/Ns 2 Gm/100 Ml) 2 gm in 100 mls @ 200 mls/hr IV Q24HR MELONY; Protocol Last Admin: 11/10/20 09:36 Dose: 200 mls/hr Documented by: Azithromycin (Zithromax/Ns) 500 mg in 250 mls @ 250 mls/hr IV Q24HR MELONY; Protocol Last Admin: 11/10/20 09:36 Dose: 250 mls/hr Documented by: Sodium Chloride (Nacl 0.9% 1000 Ml) 1,000 mls @ 30 mls/hr IV DIRECT MELONY Potassium Chloride/Sodium Chloride (Ns/Kcl 20meq) 20 meq in 1,000 mls @ 75 mls/hr IV DIRECT MELONY Heparin Sodium/Sodium Chloride (Heparin/ 0.45% Nacl-25,000 Unit/500 Ml) 25,000 unit in 500 mls @ 24 mls/hr IV TITR MELONY; Protocol Last Admin: 11/10/20 13:00 Dose: 900 units/hr, 18 mls/hr Documented by: Pantoprazole Sodium 80 mg/ (Sodium Chloride) 100 mls @ 10 mls/hr IV DIRECT MELONY Last Admin: 11/10/20 17:56 Dose: 8 mg/hr, 10 mls/hr Documented by: Magnesium Hydroxide (Magnesium Hydroxide (Mom) Oral Liqd Udc) 30 ml PO Q4H PRN PRN Reason: Constipation Morphine Sulfate (Morphine 2 Mg/1 Ml Inj) 2 mg IV Q4H PRN PRN Reason: Pain, Moderate (4-6) Morphine Sulfate (Morphine 4 Mg/1 Ml Inj) 4 mg IV Q4H PRN PRN Reason: Pain , Severe (7-10) Multi-Ingred Cream/Lotion/Oil/Oint (Mineral Oil/Petrolatum, White Ophth Oint 3.5 Gm) 1 applic OU Q4H PRN PRN Reason: Dry Eye(s) Ondansetron HCl (Ondansetron 4 Mg/2 Ml Inj) 4 mg IV Q8H PRN PRN Reason: Nausea And Vomiting Senna/Docusate Sodium (Sennosides/Docusate Sodium 8.6/50 Mg Tab) 1 tab FEEDTUBE BID [facility] Last Admin: 11/10/20 16:32 Dose: Not Given Documented by: Sodium Chloride (Sodium Chloride 0.9% 10 Ml Flush Syringe) 10 ml IV BID [facility] Last Admin: 11/10/20 09:35 Dose: 10 ml Documented by: Sodium Chloride (Sodium Chloride 0.9% 10 Ml Flush Syringe) 10 ml IV PRN PRN PRN Reason: LINE FLUSH Review of Systems - Review of Systems ROS unobtainable: due to endotracheal tube, due to mental status Exam - Constitutional Vital Signs: Temp Pulse Resp BP Pulse Ox 95 H 25 H 138/42 99 11/10/20 18:00 11/10/20 18:00 11/10/20 18:00 11/10/20 18:00 General appearance: other (Intubated) - EENT Eyes: other (No scleral icterus) - Neck Neck: other (No mass appreciated) - Respiratory Respiratory effort: other (Intubated) - Cardiovascular Rhythm: other (Tachy) - Gastrointestinal General gastrointestinal: Present: soft - Integumentary Integumentary: Present: dry - Neurologic Neurological: other (Not responding to commands) - Psychiatric Psychiatric: other (Not responding to command) - Labs CBC & Chem 7: 11/10/20 15:08 11/10/20 04:28 Lab Results: Laboratory Results - last 24 hr 11/09/20 11/09/20 11/09/20 18:11 18:21 19:07 WBC RBC Hgb Hct MCV MCH MCHC RDW Plt Count Lymph % (Auto) [place] % (Auto) Eos % (Auto) Baso % (Auto) Lymph # (Auto) [place] # (Auto) Eos # (Auto) Baso # (Auto) Add Manual Diff Total Counted Seg Neutrophils % Seg Neuts % (Manual) Lymphocytes % (Manual) Monocytes % (Manual) Nucleated RBC % Seg Neutrophils # Seg Neutrophils # [place] Neutrophils # Lymphocytes # (Manual) Abs React Lymphs (Man) Monocytes # (Manual) Eosinophils # (Manual) Basophils # (Manual) Metamyelocytes # Myelocytes # Promyelocytes # Blast Cells # WBC Morphology Hypersegmented Neuts Hyposegmented Neuts Hypogranular Neuts Smudge Cells Toxic Granulation Toxic Vacuolation Dohle Bodies Pelger-Huet Anomaly Carmen Rods Platelet Estimate Clumped Platelets Plt Clumps, EDTA Large Platelets Giant Platelets Platelet Satelliting Plt Morphology Comment RBC Morphology Dimorphic RBCs Polychromasia Hypochromasia Poikilocytosis Anisocytosis Microcytosis Macrocytosis Spherocytes Pappenheimer Bodies Sickle Cells Target Cells Tear Drop Cells Ovalocytes Helmet Cells [place] Bodies [place] Rings [place] Cells Bite Cells Crenated Cell Elliptocytes Acanthocytes (Spur) Rouleaux Hemoglobin C Crystals Schistocytes Malaria parasites [place] Bodies Hem Pathologist Commnt PT INR APTT Fibrinogen D-Dimer Heparin Anti-Xa Level ABG pH 7.053 L POC ABG pCO2 44.7 ABG pCO2 POC ABG pO2 159.6 H ABG pO2 POC ABG HCO3 12.2 ABG HCO3 ABG O2 Saturation 98.2 ABG O2 Content POC ABG Base Excess -17.7 ABG Base Excess ABG Hemoglobin 12.0 ABG Oxyhemoglobin 97.6 ABG Carboxyhemoglobin ABG Methemoglobin 0.3 ABG Sodium 135.1 L ABG Potassium 3.7 ABG Chloride 102.0 ABG Glucose 421 H Oxyhemoglobin Carboxyhemoglobin 0.3 L FiO2 FiO2 % 100 Sodium Potassium Chloride Carbon Dioxide Anion Gap BUN Creatinine Estimated GFR BUN/Creatinine Ratio Glucose POC Glucose Lactic Acid 11.40 H* Calcium Lactate Dehydrogenase Total Creatine Kinase CK-MB (CK-2) CK-MB (CK-2) Rel Index Troponin T C-Reactive Protein Procalcitonin Arterial Blood Glucose 421 H Urine Color Straw Urine Turbidity Clear Urine pH 7.0 Ur Specific [place] 1.003 Urine Protein <15 mg/dl Urine Glucose (UA) Neg Urine Ketones Neg Urine Blood Mod Urine Nitrite Neg Urine Bilirubin Neg Urine Urobilinogen < 2.0 Ur Leukocyte Esterase Neg Urine WBC (Auto) 2.0 Urine RBC (Auto) 2.0 U Epithel Cells (Auto) 1.0 Urine Bacteria (Auto) 1+ Urine Creatinine Urine Sodium Urine Chloride Urine Opiates Screen Urine Methadone Screen Ur Barbiturates Screen Ur Phencyclidine Scrn Ur Amphetamines Screen U Benzodiazepines Scrn Urine Cocaine Screen U Marijuana (THC) Screen Drugs of Abuse Note Coronavirus (PCR) 11/09/20 11/09/20 11/09/20 19:07 20:07 20:07 WBC RBC Hgb Hct MCV MCH MCHC RDW Plt Count Lymph % (Auto) [place] % (Auto) Eos % (Auto) Baso % (Auto) Lymph # (Auto) [place] # (Auto) Eos # (Auto) Baso # (Auto) Add Manual Diff Total Counted Seg Neutrophils % Seg Neuts % (Manual) Lymphocytes % (Manual) Monocytes % (Manual) Nucleated RBC % Seg Neutrophils # Seg Neutrophils # [place] Neutrophils # Lymphocytes # (Manual) Abs React Lymphs (Man) Monocytes # (Manual) Eosinophils # (Manual) Basophils # (Manual) Metamyelocytes # Myelocytes # Promyelocytes # Blast Cells # WBC Morphology Hypersegmented Neuts Hyposegmented Neuts Hypogranular Neuts Smudge Cells Toxic Granulation Toxic Vacuolation Dohle Bodies Pelger-Huet Anomaly Carmen Rods Platelet Estimate Clumped Platelets Plt Clumps, EDTA Large Platelets Giant Platelets Platelet Satelliting Plt Morphology Comment RBC Morphology Dimorphic RBCs Polychromasia Hypochromasia Poikilocytosis Anisocytosis Microcytosis Macrocytosis Spherocytes Pappenheimer Bodies Sickle Cells Target Cells Tear Drop Cells Ovalocytes Helmet Cells [place] Bodies [place] Rings [place] Cells Bite Cells Crenated Cell Elliptocytes Acanthocytes (Spur) Rouleaux Hemoglobin C Crystals Schistocytes Malaria parasites [place] Bodies Hem Pathologist Commnt PT INR APTT Fibrinogen D-Dimer Heparin Anti-Xa Level ABG pH POC ABG pCO2 ABG pCO2 POC ABG pO2 ABG pO2 POC ABG HCO3 ABG HCO3 ABG O2 Saturation ABG O2 Content POC ABG Base Excess ABG Base Excess ABG Hemoglobin ABG Oxyhemoglobin ABG Carboxyhemoglobin ABG Methemoglobin ABG Sodium ABG Potassium ABG Chloride ABG Glucose Oxyhemoglobin Carboxyhemoglobin FiO2 FiO2 % Sodium Potassium Chloride Carbon Dioxide Anion Gap BUN Creatinine Estimated GFR BUN/Creatinine Ratio Glucose POC Glucose Lactic Acid 9.00 H* Calcium Lactate Dehydrogenase Total Creatine Kinase 340 H CK-MB (CK-2) 14.2 H CK-MB (CK-2) Rel Index 4.1 H Troponin T 0.553 H* D C-Reactive Protein Procalcitonin Arterial Blood Glucose Urine Color Urine Turbidity Urine pH Ur Specific [place] Urine Protein Urine Glucose (UA) Urine Ketones Urine Blood Urine Nitrite Urine Bilirubin Urine Urobilinogen Ur Leukocyte Esterase Urine WBC (Auto) Urine RBC (Auto) U Epithel Cells (Auto) Urine Bacteria (Auto) Urine Creatinine Urine Sodium Urine Chloride Urine Opiates Screen Negative Urine Methadone Screen Negative Ur Barbiturates Screen Negative Ur Phencyclidine Scrn Negative Ur Amphetamines Screen Negative U Benzodiazepines Scrn Negative Urine Cocaine Screen Negative U Marijuana (THC) Screen Negative Drugs of Abuse Note Disclamer Coronavirus (PCR) 11/09/20 11/09/20 11/09/20 23:05 23:05 23:05 WBC RBC Hgb 12.2 Hct 36.2 MCV MCH MCHC RDW Plt Count Lymph % (Auto) [place] % (Auto) Eos % (Auto) Baso % (Auto) Lymph # (Auto) [place] # (Auto) Eos # (Auto) Baso # (Auto) Add Manual Diff Total Counted Seg Neutrophils % Seg Neuts % (Manual) Lymphocytes % (Manual) Monocytes % (Manual) Nucleated RBC % Seg Neutrophils # Seg Neutrophils # [place] Neutrophils # Lymphocytes # (Manual) Abs React Lymphs (Man) Monocytes # (Manual) Eosinophils # (Manual) Basophils # (Manual) Metamyelocytes # Myelocytes # Promyelocytes # Blast Cells # WBC Morphology Hypersegmented Neuts Hyposegmented Neuts Hypogranular Neuts Smudge Cells Toxic Granulation Toxic Vacuolation Dohle Bodies Pelger-Huet Anomaly Carmen Rods Platelet Estimate Clumped Platelets Plt Clumps, EDTA Large Platelets Giant Platelets Platelet Satelliting Plt Morphology Comment RBC Morphology Dimorphic RBCs Polychromasia Hypochromasia Poikilocytosis Anisocytosis Microcytosis Macrocytosis Spherocytes Pappenheimer Bodies Sickle Cells Target Cells Tear Drop Cells Ovalocytes Helmet Cells [place] Bodies [place] Rings [place] Cells Bite Cells Crenated Cell Elliptocytes Acanthocytes (Spur) Rouleaux Hemoglobin C Crystals Schistocytes Malaria parasites [place] Bodies Hem Pathologist Commnt PT INR APTT Fibrinogen D-Dimer Heparin Anti-Xa Level ABG pH POC ABG pCO2 ABG pCO2 POC ABG pO2 ABG pO2 POC ABG HCO3 ABG HCO3 ABG O2 Saturation ABG O2 Content POC ABG Base Excess ABG Base Excess ABG Hemoglobin ABG Oxyhemoglobin ABG Carboxyhemoglobin ABG Methemoglobin ABG Sodium ABG Potassium ABG Chloride ABG Glucose Oxyhemoglobin Carboxyhemoglobin FiO2 FiO2 % Sodium Potassium Chloride Carbon Dioxide Anion Gap BUN Creatinine Estimated GFR BUN/Creatinine Ratio Glucose POC Glucose Lactic Acid 6.80 H* Calcium Lactate Dehydrogenase Total Creatine Kinase 449 H CK-MB (CK-2) 18.4 H CK-MB (CK-2) Rel Index 4.0 Troponin T 0.873 H* D C-Reactive Protein Procalcitonin Arterial Blood Glucose Urine Color Urine Turbidity Urine pH Ur Specific [place] Urine Protein Urine Glucose (UA) Urine Ketones Urine Blood Urine Nitrite Urine Bilirubin Urine Urobilinogen Ur Leukocyte Esterase Urine WBC (Auto) Urine RBC (Auto) U Epithel Cells (Auto) Urine Bacteria (Auto) Urine Creatinine Urine Sodium Urine Chloride Urine Opiates Screen Urine Methadone Screen Ur Barbiturates Screen Ur Phencyclidine Scrn Ur Amphetamines Screen U Benzodiazepines Scrn Urine Cocaine Screen U Marijuana (THC) Screen Drugs of Abuse Note Coronavirus (PCR) 11/10/20 11/10/20 11/10/20 00:42 04:28 04:28 WBC RBC Hgb Hct MCV MCH MCHC RDW Plt Count Lymph % (Auto) [place] % (Auto) Eos % (Auto) Baso % (Auto) Lymph # (Auto) [place] # (Auto) Eos # (Auto) Baso # (Auto) Add Manual Diff Total Counted Seg Neutrophils % Seg Neuts % (Manual) Lymphocytes % (Manual) Monocytes % (Manual) Nucleated RBC % Seg Neutrophils # Seg Neutrophils # [place] Neutrophils # Lymphocytes # (Manual) Abs React Lymphs (Man) Monocytes # (Manual) Eosinophils # (Manual) Basophils # (Manual) Metamyelocytes # Myelocytes # Promyelocytes # Blast Cells # WBC Morphology Hypersegmented Neuts Hyposegmented Neuts Hypogranular Neuts Smudge Cells Toxic Granulation Toxic Vacuolation Dohle Bodies Pelger-Huet Anomaly Carmen Rods Platelet Estimate Clumped Platelets Plt Clumps, EDTA Large Platelets Giant Platelets Platelet Satelliting Plt Morphology Comment RBC Morphology Dimorphic RBCs Polychromasia Hypochromasia Poikilocytosis Anisocytosis Microcytosis Macrocytosis Spherocytes Pappenheimer Bodies Sickle Cells Target Cells Tear Drop Cells Ovalocytes Helmet Cells [place] Bodies [place] Rings [place] Cells Bite Cells Crenated Cell Elliptocytes Acanthocytes (Spur) Rouleaux Hemoglobin C Crystals Schistocytes Malaria parasites [place] Bodies Hem Pathologist Commnt PT 19.8 H 20.3 H INR 1.63 H 1.69 H APTT Not Reportable Fibrinogen 210 L 221 D-Dimer > 70871 H Heparin Anti-Xa Level 0.79 H ABG pH POC ABG pCO2 ABG pCO2 POC ABG pO2 ABG pO2 POC ABG HCO3 ABG HCO3 ABG O2 Saturation ABG O2 Content POC ABG Base Excess ABG Base Excess ABG Hemoglobin ABG Oxyhemoglobin ABG Carboxyhemoglobin ABG Methemoglobin ABG Sodium ABG Potassium ABG Chloride ABG Glucose Oxyhemoglobin Carboxyhemoglobin FiO2 FiO2 % Sodium Potassium Chloride Carbon Dioxide Anion Gap BUN Creatinine Estimated GFR BUN/Creatinine Ratio Glucose POC Glucose Lactic Acid Calcium Lactate Dehydrogenase Total Creatine Kinase CK-MB (CK-2) CK-MB (CK-2) Rel Index Troponin T C-Reactive Protein Procalcitonin 9.69 Arterial Blood Glucose Urine Color Urine Turbidity Urine pH Ur Specific [place] Urine Protein Urine Glucose (UA) Urine Ketones Urine Blood Urine Nitrite Urine Bilirubin Urine Urobilinogen Ur Leukocyte Esterase Urine WBC (Auto) Urine RBC (Auto) U Epithel Cells (Auto) Urine Bacteria (Auto) Urine Creatinine Urine Sodium Urine Chloride Urine Opiates Screen Urine Methadone Screen Ur Barbiturates Screen Ur Phencyclidine Scrn Ur Amphetamines Screen U Benzodiazepines Scrn Urine Cocaine Screen U Marijuana (THC) Screen Drugs of Abuse Note Coronavirus (PCR) 11/10/20 11/10/20 11/10/20 04:28 04:28 04:28 WBC 17.7 H RBC 3.66 Hgb 11.3 Hct 33.8 MCV 92 MCH 31 MCHC 33 RDW 14.6 Plt Count 191 Lymph % (Auto) [place] % (Auto) Eos % (Auto) Baso % (Auto) Lymph # (Auto) [place] # (Auto) Eos # (Auto) Baso # (Auto) Add Manual Diff Complete Total Counted 100 Seg Neutrophils % Glass Enamel Mixer Seg Neuts % (Manual) 96.0 H Lymphocytes % (Manual) 1.0 L Monocytes % (Manual) 3.0 Nucleated RBC % Not Reportable Seg Neutrophils # Seg Neutrophils # Man 17.0 H Band Neutrophils # 0.0 Lymphocytes # (Manual) 0.2 L Abs React Lymphs (Man) 0.0 Monocytes # (Manual) 0.5 Eosinophils # (Manual) 0.0 Basophils # (Manual) 0.0 Metamyelocytes # 0.0 Myelocytes # 0.0 Promyelocytes # 0.0 Blast Cells # 0.0 WBC Morphology Not Reportable Hypersegmented Neuts Not Reportable Hyposegmented Neuts Not Reportable Hypogranular Neuts Not Reportable Smudge Cells Not Reportable Toxic Granulation Not Reportable Toxic Vacuolation Not Reportable Dohle Bodies Not Reportable Pelger-Huet Anomaly Not Reportable Carmen Rods Not Reportable Platelet Estimate Consistent w auto Clumped Platelets Not Reportable Plt Clumps, EDTA Not Reportable Large Platelets Not Reportable Giant Platelets Not Reportable Platelet Satelliting Not Reportable Plt Morphology Comment Not Reportable RBC Morphology Not Reportable Dimorphic RBCs Not Reportable Polychromasia Not Reportable Hypochromasia Not Reportable Poikilocytosis Not Reportable Anisocytosis 1+ Microcytosis Not Reportable Macrocytosis Not Reportable Spherocytes Not Reportable Pappenheimer Bodies Not Reportable Sickle Cells Not Reportable Target Cells Not Reportable Tear Drop Cells Not Reportable Ovalocytes Not Reportable Helmet Cells Not Reportable [place] Bodies Not Reportable [place] Rings Not Reportable [place] Cells Not Reportable Bite Cells Not Reportable Crenated Cell Not Reportable Elliptocytes Not Reportable Acanthocytes (Spur) Not Reportable Rouleaux Not Reportable Hemoglobin C Crystals Not Reportable Schistocytes Not Reportable Malaria parasites Not Reportable [place] Bodies Not Reportable Hem Pathologist Commnt No PT INR APTT Fibrinogen D-Dimer Heparin Anti-Xa Level ABG pH POC ABG pCO2 ABG pCO2 POC ABG pO2 ABG pO2 POC ABG HCO3 ABG HCO3 ABG O2 Saturation ABG O2 Content POC ABG Base Excess ABG Base Excess ABG Hemoglobin ABG Oxyhemoglobin ABG Carboxyhemoglobin ABG Methemoglobin ABG Sodium ABG Potassium ABG Chloride ABG Glucose Oxyhemoglobin Carboxyhemoglobin FiO2 FiO2 % Sodium 136 L Potassium 3.3 L Chloride 101.7 Carbon Dioxide 16 L Anion Gap 22 BUN 21 H Creatinine 1.8 H Estimated GFR 32 BUN/Creatinine Ratio 12 Glucose 376 H POC Glucose Lactic Acid Calcium 8.5 Lactate Dehydrogenase 1637 H Total Creatine Kinase CK-MB (CK-2) CK-MB (CK-2) Rel Index Troponin T C-Reactive Protein 3.50 H Procalcitonin Arterial Blood Glucose Urine Color Urine Turbidity Urine pH Ur Specific [place] Urine Protein Urine Glucose (UA) Urine Ketones Urine Blood Urine Nitrite Urine Bilirubin Urine Urobilinogen Ur Leukocyte Esterase Urine WBC (Auto) Urine RBC (Auto) U Epithel Cells (Auto) Urine Bacteria (Auto) Urine Creatinine Urine Sodium Urine Chloride Urine Opiates Screen Urine Methadone Screen Ur Barbiturates Screen Ur Phencyclidine Scrn Ur Amphetamines Screen U Benzodiazepines Scrn Urine Cocaine Screen U Marijuana (THC) Screen Drugs of Abuse Note Coronavirus (PCR) 11/10/20 11/10/20 11/10/20 04:28 05:13 11:06 WBC RBC Hgb Hct MCV MCH MCHC RDW Plt Count Lymph % (Auto) [place] % (Auto) Eos % (Auto) Baso % (Auto) Lymph # (Auto) [place] # (Auto) Eos # (Auto) Baso # (Auto) Add Manual Diff Total Counted Seg Neutrophils % Seg Neuts % (Manual) Lymphocytes % (Manual) Monocytes % (Manual) Nucleated RBC % Seg Neutrophils # Seg Neutrophils # [place] Neutrophils # Lymphocytes # (Manual) Abs React Lymphs (Man) Monocytes # (Manual) Eosinophils # (Manual) Basophils # (Manual) Metamyelocytes # Myelocytes # Promyelocytes # Blast Cells # WBC Morphology Hypersegmented Neuts Hyposegmented Neuts Hypogranular Neuts Smudge Cells Toxic Granulation Toxic Vacuolation Dohle Bodies Pelger-Huet Anomaly Carmen Rods Platelet Estimate Clumped Platelets Plt Clumps, EDTA Large Platelets Giant Platelets Platelet Satelliting Plt Morphology Comment RBC Morphology Dimorphic RBCs Polychromasia Hypochromasia Poikilocytosis Anisocytosis Microcytosis Macrocytosis Spherocytes Pappenheimer Bodies Sickle Cells Target Cells Tear Drop Cells Ovalocytes Helmet Cells [place] Bodies [place] Rings [place] Cells Bite Cells Crenated Cell Elliptocytes Acanthocytes (Spur) Rouleaux Hemoglobin C Crystals Schistocytes Malaria parasites [place] Bodies Hem Pathologist Commnt PT INR APTT Fibrinogen D-Dimer Heparin Anti-Xa Level ABG pH 7.221 L POC ABG pCO2 43.4 ABG pCO2 POC ABG pO2 162.0 H ABG pO2 POC ABG HCO3 17.4 ABG HCO3 ABG O2 Saturation 99.1 ABG O2 Content POC ABG Base Excess -9.8 ABG Base Excess ABG Hemoglobin 11.7 L ABG Oxyhemoglobin 98.9 H ABG Carboxyhemoglobin ABG Methemoglobin 0.1 ABG Sodium 133.6 L ABG Potassium 3.1 L ABG Chloride 105.0 ABG Glucose 346 H Oxyhemoglobin Carboxyhemoglobin 0.1 L FiO2 FiO2 % 60.0 Sodium Potassium Chloride Carbon Dioxide Anion Gap BUN Creatinine Estimated GFR BUN/Creatinine Ratio Glucose POC Glucose Lactic Acid 6.10 H* Calcium Lactate Dehydrogenase Total Creatine Kinase CK-MB (CK-2) CK-MB (CK-2) Rel Index Troponin T C-Reactive Protein Procalcitonin Arterial Blood Glucose 346 H Urine Color Urine Turbidity Urine pH Ur Specific [place] Urine Protein Urine Glucose (UA) Urine Ketones Urine Blood Urine Nitrite Urine Bilirubin Urine Urobilinogen Ur Leukocyte Esterase Urine WBC (Auto) Urine RBC (Auto) U Epithel Cells (Auto) Urine Bacteria (Auto) Urine Creatinine 80.9 H Urine Sodium 48 Urine Chloride 38.8 L Urine Opiates Screen Urine Methadone Screen Ur Barbiturates Screen Ur Phencyclidine Scrn Ur Amphetamines Screen U Benzodiazepines Scrn Urine Cocaine Screen U Marijuana (THC) Screen Drugs of Abuse Note Coronavirus (PCR) 11/10/20 11/10/20 11/10/20 12:30 15:08 15:08 WBC 16.1 H RBC 3.20 L Hgb 9.7 L Hct 29.5 L MCV 92 MCH 30 MCHC 33 RDW 14.4 Plt Count 196 Lymph % (Auto) 7.4 L [place] % (Auto) 8.7 H Eos % (Auto) 0.1 Baso % (Auto) 0.1 Lymph # (Auto) 1.2 [place] # (Auto) 1.4 H Eos # (Auto) 0.0 Baso # (Auto) 0.0 Add Manual Diff Total Counted Seg Neutrophils % 83.7 H Seg Neuts % (Manual) Lymphocytes % (Manual) Monocytes % (Manual) Nucleated RBC % Seg Neutrophils # 13.5 H Seg Neutrophils # [place] Neutrophils # Lymphocytes # (Manual) Abs React Lymphs (Man) Monocytes # (Manual) Eosinophils # (Manual) Basophils # (Manual) Metamyelocytes # Myelocytes # Promyelocytes # Blast Cells # WBC Morphology Hypersegmented Neuts Hyposegmented Neuts Hypogranular Neuts Smudge Cells Toxic Granulation Toxic Vacuolation Dohle Bodies Pelger-Huet Anomaly Carmen Rods Platelet Estimate Clumped Platelets Plt Clumps, EDTA Large Platelets Giant Platelets Platelet Satelliting Plt Morphology Comment RBC Morphology Dimorphic RBCs Polychromasia Hypochromasia Poikilocytosis Anisocytosis Microcytosis Macrocytosis Spherocytes Pappenheimer Bodies Sickle Cells Target Cells Tear Drop Cells Ovalocytes Helmet Cells [place] Bodies [place] Rings [place] Cells Bite Cells Crenated Cell Elliptocytes Acanthocytes (Spur) Rouleaux Hemoglobin C Crystals Schistocytes Malaria parasites [place] Bodies Hem Pathologist Commnt PT 18.9 H INR 1.53 H APTT 204.8 H* Fibrinogen 235 299 D-Dimer Heparin Anti-Xa Level 0.76 H 0.56 ABG pH POC ABG pCO2 ABG pCO2 POC ABG pO2 ABG pO2 POC ABG HCO3 ABG HCO3 ABG O2 Saturation ABG O2 Content POC ABG Base Excess ABG Base Excess ABG Hemoglobin ABG Oxyhemoglobin ABG Carboxyhemoglobin ABG Methemoglobin ABG Sodium ABG Potassium ABG Chloride ABG Glucose Oxyhemoglobin Carboxyhemoglobin FiO2 FiO2 % Sodium Potassium Chloride Carbon Dioxide Anion Gap BUN Creatinine Estimated GFR BUN/Creatinine Ratio Glucose POC Glucose Lactic Acid Calcium Lactate Dehydrogenase Total Creatine Kinase CK-MB (CK-2) CK-MB (CK-2) Rel Index Troponin T C-Reactive Protein Procalcitonin Arterial Blood Glucose Urine Color Urine Turbidity Urine pH Ur Specific [place] Urine Protein Urine Glucose (UA) Urine Ketones Urine Blood Urine Nitrite Urine Bilirubin Urine Urobilinogen Ur Leukocyte Esterase Urine WBC (Auto) Urine RBC (Auto) U Epithel Cells (Auto) Urine Bacteria (Auto) Urine Creatinine Urine Sodium Urine Chloride Urine Opiates Screen Urine Methadone Screen Ur Barbiturates Screen Ur Phencyclidine Scrn Ur Amphetamines Screen U Benzodiazepines Scrn Urine Cocaine Screen U Marijuana (THC) Screen Drugs of Abuse Note Coronavirus (PCR) 11/10/20 11/10/20 11/10/20 15:08 17:17 18:25 WBC RBC Hgb Hct MCV MCH MCHC RDW Plt Count Lymph % (Auto) [place] % (Auto) Eos % (Auto) Baso % (Auto) Lymph # (Auto) [place] # (Auto) Eos # (Auto) Baso # (Auto) Add Manual Diff Total Counted Seg Neutrophils % Seg Neuts % (Manual) Lymphocytes % (Manual) Monocytes % (Manual) Nucleated RBC % Seg Neutrophils # Seg Neutrophils # Man Band Neutrophils # Lymphocytes # (Manual) Abs React Lymphs (Man) Monocytes # (Manual) Eosinophils # (Manual) Basophils # (Manual) Metamyelocytes # Myelocytes # Promyelocytes # Blast Cells # WBC Morphology Hypersegmented Neuts Hyposegmented Neuts Hypogranular Neuts Smudge Cells Toxic Granulation Toxic Vacuolation Dohle Bodies Pelger-Huet Anomaly Carmen Rods Platelet Estimate Clumped Platelets Plt Clumps, EDTA Large Platelets Giant Platelets Platelet Satelliting Plt Morphology Comment RBC Morphology Dimorphic RBCs Polychromasia Hypochromasia Poikilocytosis Anisocytosis Microcytosis Macrocytosis Spherocytes Pappenheimer Bodies Sickle Cells Target Cells Tear Drop Cells Ovalocytes Helmet Cells [place] Bodies [place] Rings Randall Cells Bite Cells Crenated Cell Elliptocytes Acanthocytes (Spur) Rouleaux Hemoglobin C Crystals Schistocytes Malaria parasites [place] Bodies Hem Pathologist Commnt PT INR APTT Fibrinogen D-Dimer Heparin Anti-Xa Level ABG pH 7.206 L POC ABG pCO2 ABG pCO2 47.2 POC ABG pO2 ABG pO2 83.7 POC ABG HCO3 ABG HCO3 18.3 L ABG O2 Saturation 95.8 ABG O2 Content 12.6 POC ABG Base Excess ABG Base Excess -9.2 L ABG Hemoglobin 9.4 L ABG Oxyhemoglobin ABG Carboxyhemoglobin 1.0 ABG Methemoglobin 0.6 ABG Sodium ABG Potassium ABG Chloride ABG Glucose Oxyhemoglobin 94.3 L Carboxyhemoglobin FiO2 40 FiO2 % Sodium Potassium Chloride Carbon Dioxide Anion Gap BUN Creatinine Estimated GFR BUN/Creatinine Ratio Glucose POC Glucose 200 H Lactic Acid 4.10 H* Calcium Lactate Dehydrogenase Total Creatine Kinase CK-MB (CK-2) CK-MB (CK-2) Rel Index Troponin T C-Reactive Protein Procalcitonin Arterial Blood Glucose Urine Color Urine Turbidity Urine pH Ur Specific [place] Urine Protein Urine Glucose (UA) Urine Ketones Urine Blood Urine Nitrite Urine Bilirubin Urine Urobilinogen Ur Leukocyte Esterase Urine WBC (Auto) Urine RBC (Auto) U Epithel Cells (Auto) Urine Bacteria (Auto) Urine Creatinine Urine Sodium Urine Chloride Urine Opiates Screen Urine Methadone Screen Ur Barbiturates Screen Ur Phencyclidine Scrn Ur Amphetamines Screen U Benzodiazepines Scrn Urine Cocaine Screen U Marijuana (THC) Screen Drugs of Abuse Note Coronavirus (PCR) 11/10/20 Unknown WBC RBC Hgb Hct MCV MCH MCHC RDW Plt Count Lymph % (Auto) [place] % (Auto) Eos % (Auto) Baso % (Auto) Lymph # (Auto) [place] # (Auto) Eos # (Auto) Baso # (Auto) Add Manual Diff Total Counted Seg Neutrophils % Seg Neuts % (Manual) Lymphocytes % (Manual) Monocytes % (Manual) Nucleated RBC % Seg Neutrophils # Seg Neutrophils # [place] Neutrophils # Lymphocytes # (Manual) Abs React Lymphs (Man) Monocytes # (Manual) Eosinophils # (Manual) Basophils # (Manual) Metamyelocytes # Myelocytes # Promyelocytes # Blast Cells # WBC Morphology Hypersegmented Neuts Hyposegmented Neuts Hypogranular Neuts Smudge Cells Toxic Granulation Toxic Vacuolation Dohle Bodies Pelger-Huet Anomaly Carmen Rods Platelet Estimate Clumped Platelets Plt Clumps, EDTA Large Platelets Giant Platelets Platelet Satelliting Plt Morphology Comment RBC Morphology Dimorphic RBCs Polychromasia Hypochromasia Poikilocytosis Anisocytosis Microcytosis Macrocytosis Spherocytes Pappenheimer Bodies Sickle Cells Target Cells Tear Drop Cells Ovalocytes Helmet Cells [place] Bodies [place] Rings Randall Cells Bite Cells Crenated Cell Elliptocytes Acanthocytes (Spur) Rouleaux Hemoglobin C Crystals Schistocytes Malaria parasites [place] Bodies Hem Pathologist Commnt PT INR APTT Fibrinogen D-Dimer Heparin Anti-Xa Level ABG pH POC ABG pCO2 ABG pCO2 POC ABG pO2 ABG pO2 POC ABG HCO3 ABG HCO3 ABG O2 Saturation ABG O2 Content POC ABG Base Excess ABG Base Excess ABG Hemoglobin ABG Oxyhemoglobin ABG Carboxyhemoglobin ABG Methemoglobin ABG Sodium ABG Potassium ABG Chloride ABG Glucose Oxyhemoglobin Carboxyhemoglobin FiO2 FiO2 % Sodium Potassium Chloride Carbon Dioxide Anion Gap BUN Creatinine Estimated GFR BUN/Creatinine Ratio Glucose POC Glucose Lactic Acid Calcium Lactate Dehydrogenase Total Creatine Kinase CK-MB (CK-2) CK-MB (CK-2) Rel Index Troponin T C-Reactive Protein Procalcitonin Arterial Blood Glucose Urine Color Urine Turbidity Urine pH Ur Specific [place] Urine Protein Urine Glucose (UA) Urine Ketones Urine Blood Urine Nitrite Urine Bilirubin Urine Urobilinogen Ur Leukocyte Esterase Urine WBC (Auto) Urine RBC (Auto) U Epithel Cells (Auto) Urine Bacteria (Auto) Urine Creatinine Urine Sodium Urine Chloride Urine Opiates Screen Urine Methadone Screen Ur Barbiturates Screen Ur Phencyclidine Scrn Ur Amphetamines Screen U Benzodiazepines Scrn Urine Cocaine Screen U Marijuana (THC) Screen Drugs of Abuse Note Coronavirus (PCR) Negative Assessment and Plan Of note patient's PTT is significantly supratherapeutic today. Therefore recommend titrating down the heparin drip to goal PTT levels Regarding the source of the bleed she does of note have blood both coming from her nares as well as the OG tube. I spoke with the nurse and the patient has not been having retching or vomiting and has not been bucking her vent. Therefore, the blood in the nostrils is less likely to be coming from a gastroesophageal source and rather is more likely to be a primary nasopharyngeal source. Given the supratherapeutic PTT she may just be bleeding from multiple sites Given the above and her significant instability, it is unlikely that an endoscopy will be beneficial and would carry significant risks at this juncture Therefore, merely recommend Protonix 40 mg IV twice daily and continue close monitoring and titration of the heparin drip as discussed above I will continue to follow with you - Patient Problems (1) Upper GI hemorrhage Current Visit: Yes Status: Acute (2) Atrial fibrillation Current Visit: Yes Status: Acute Qualifiers: Atrial fibrillation type: persistent (not longstanding) Qualified Code(s): I48.19 - Other persistent atrial fibrillation; I48.1 - Persistent atrial fibrillation (3) Cardiopulmonary arrest Current Visit: Yes Status: Acute
[2020-11-10] MEDS: fentaNYL DRIP Premix 2,000 MCG/100 ML BAG IV SCH (21:30)
[2020-11-10] MEDS ORDERED: DOPamine/D5W 800 MG/250 ML 800 MG/250 ML BAG IV SCH (21:40)
[2020-11-10 22:07] LABS: Hematocrit 28.4 % (30.3-42.9); Hemoglobin 9.7 gm/dl (10.1-14.3)
--- NOTE | 2020-11-10 22:07 | Consultation ---
DATE OF CONSULTATION: 11/10/2020 PULMONARY CRITICAL CARE CONSULTATION NOTE CONSULTING PHYSICIAN: Dr. Noble Godwin. REASON FOR CONSULTATION: Acute respiratory failure, on MVS, bilateral pulmonary embolism, pneumonia, and I believe cardiac arrest with return of spontaneous circulation. CHIEF COMPLAINT AND HISTORY OF PRESENT ILLNESS: As follows: The patient is an 84-year-old female with a past medical history significant amongst the other things for chronic right-bundle branch block as well as chronic kidney disease and hypertension. She was brought into the Emergency Room from the [facility] for evaluation of shortness of breath and dyspnea on exertion. According to the history, the patient had a similar episode en route [place], I believe from [place]. They had stopped during the journey. She was evaluated by emergency medical service, but given all clear to continue with her travel. When she came back here, she was seen at the [facility] office. From that office, it seems like she was found to be hypotensive, femoral central line was placed, and she was transferred over to our Emergency Room. In the Emergency Room, the patient was pulseless. A code blue was initiated. ACLS protocol, CPR. There was return of spontaneous circulation. Ultimately, the rhythm was atrial fibrillation with a rate of about 109. D-dimers were elevated. A CT of the chest showed bilateral segmental and subsegmental pulmonary emboli with large clot burden and right heart strain. She was seen by the vascular surgeon and she was taking for EKOS/catheter-directed thrombolytic therapy procedure and postop brought into the intensive care unit. When I stopped by to see her, she remained on mechanical ventilator, PRVC, AC mode, tidal volume 450, rate of 18, and PEEP of 6 on 40% FIO2. She was not responsive. There was serosanguineous fluid bleeding coming from the side of her mouth and it seemed like there was some coffee-ground emesis in an NG tube that was not yet connected to low intermittent suction. I do not have history of vomiting or overt aspiration. The patient's tobacco use/abuse history is unknown. Prior cardiac history is unknown. The above is as much of the history of presentation as I have. PAST MEDICAL HISTORY: Hypertension, chronic kidney disease, chronic right bundle-branch block, arthritis. PAST SURGICAL HISTORY: Unknown. MEDICATIONS: She was on at the time I stopped by to see according to the medication administration record included the following: Tylenol 650 mg per rectum q. 6 hours p.r.n. mild pain or fevers and 650 mg p.o. q. 6 hours p.r.n. mild pain or fevers, [place] 5/325 two tablets p.o. q. 6 hours p.r.n. moderate pain, Zithromax 500 mg IV daily, Rocephin 2 grams IV daily. She had been on a dopamine drip earlier at 2 mcg per kilogram per minute, Pepcid 10 mg IV b.i.d., fentanyl drip was ordered at 3 mcg per kilogram per hour, IV heparin was going, Levophed drip was also going at 30 mcg per minute and maxed out. Morphine sulfate 2 mg IV q. 4 hours p.r.n. moderate pain and 4 mg IV q. 4 hours p.r.n. severe pain, Zofran 4 mg IV q. 8 hours p.r.n. nausea and vomiting. Propofol was going at 15 mcg per kilogram per minute. ALLERGIES: No known drug allergies. DIET: Slightly obese lady. Acute weight loss or gain history is unknown. FAMILY AND SOCIAL HISTORY: Apparently lives in the community with family. Alcohol, tobacco, or illicit drug use/abuse history is unknown. Family history is otherwise unknown. REVIEW OF SYSTEMS: Unobtainable secondary to the patient's medical and mental condition. Since she has been here, no gross hematochezia or melena. No gross hematuria. She has had some bloody tracheal secretions. She has coffee-ground looking type fluid in her NG tube. No witnessed seizures. Review of systems otherwise unobtainable or as in the body of history above. PHYSICAL EXAMINATION: VITAL SIGNS: Review of the vital signs, I do not see any temperature recorded on this patient. Pulse rate was 121, respiratory rate 10, blood pressure was 108/79, O2 sats were 95%, inspired oxygen concentration at that time was not recorded. GENERAL: She is an elderly looking female. Normocephalic with serosanguineous fluid dripping from the side of her lips and her nose; however, without significant patient ventilator dyssynchrony. HEAD, EYES, EARS, NOSE, AND THROAT: Anicteric. No conjunctival erythema. Endotracheal tube was taped at the lips around 24 cm. NECK: No gross jugular venous distention. No thyromegaly. She had an OG tube. Grossly, there were no palpable lymph nodes in the supraclavicular or submandibular lymph node chains. LUNGS: Auscultation of both lung may revealed scant bilateral rhonchi. No wheezing. HEART: Sounds 1 and 2 are heard at the time of my evaluation, regular rate and rhythm without overt rubs. I believe I heard a systolic murmur. ABDOMEN: Soft, full, protuberant. Bowel sounds are positive, nontender. No palpable hepatosplenomegaly. Nontender. EXTREMITIES: Without overt digital clubbing or cyanosis. No pedal edema. Pedal pulses are 2+. She has a pressure dressing to the left groin and a right triple lumen catheter in place in the right groin. NEUROLOGIC: Pupils are equal, round, about 2 mm, sluggishly reactive to light. Extraocular muscle movements could not be assessed. She really was not exhibiting much spontaneous movement. Essentially, looked obtunded. SKIN: Overall normal turgor in the areas examined without overt cellulitis or rash. Please see the wound care nurses' notes for full description of her skin. PSYCHIATRIC: Mood and affect could not be assessed. LABORATORY DATA: From my review are as follows: Admission white cell count 6800, hemoglobin was 10.3, hematocrit was 32.0, platelet count was 100. No band forms on the manual differential. INR was 1.64. D-dimer was greater than 10,000. Arterial blood gas showed a pH of 7.05, pCO2 of 45, pO2 of 160 on 100% FiO2 at presentation. Most recent ABG; pH 7.22, pCO2 of 43.4, pO2 was 162, that was on FiO2 of 60 on the above-mentioned vent settings, rate of 18, tidal volume 450, PEEP of 6. Serum sodium was 141 at presentation, potassium was 2.9, chloride was 103, bicarbonate was 13, BUN was 16, creatinine was 1.4, glucose was 391. Lactic acid level was 11.4, it is now down to 4.1. AST was up at 312, ALT 273. Troponin was 0.26. BNP was up at 1169. LDL cholesterol was 72. Procalcitonin 9.7. Urinalysis; moderate blood, negative for nitrites and leukocyte esterase, only 2 white cells per high-power field. Urine drug screen was presumptive negative. Coronavirus PCR has come back negative. Two sets of blood cultures are no growth to date. Chest x-ray shows endotracheal tube tip in good position. The film is rotated. The aorta is uncoiled. There is borderline cardiomegaly. There appears to be some perihilar infiltrates. CT of the chest; I have reviewed the CT angio, good contrast phase timing. She has bilateral PE. No real saddle emboli, but a large clot burden at the left main pulmonary trunk. She has also subsegmental and segmental emboli through the right and left main pulmonary artery trunks. Lung windows, patchy ground glass opacification bilaterally. No gross pleural effusions, some airspace consolidation in the dependent areas. ASSESSMENT: 1. Acute hypoxemic respiratory failure, on mechanical ventilatory support secondary to #2. 2. 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 3. Bilateral pulmonary infiltrates/pneumonia. 4. Cardiac arrest with return of spontaneous circulation. 5. Xvqlg-[id number] kidney injury. 6. Oropharyngeal dysphagia. 7. History of hypertension. 8. Shock, cardiogenic and hypovolemic likely. 9. History of chronic right bundle-branch block. 10. History of arthritis. 11. Thrombocytopenia. 12. Coagulopathy, iatrogenic component. 13. Hypokalemia. 14. Severe metabolic acidosis. 15. Lactic acidosis. 16. Elevated serum transaminases. 17. Non-ST elevation myocardial infarction. PLAN: She is now having bloody effluent from the NG tube. This may well have been related to the catheter-directed thrombolytics and the IV heparin she needs to be on for her acute coronary syndrome and the venous thromboembolic disorder. I will start her on a PPI drip. A GI consult is going to be placed. H and H will be ordered q. 6 hours. Supportive transfusions with serum hemoglobin less than 7.0. Lactic acid level is trending down. We will continue gentle volume resuscitation. We will wean vasopressors for a mean arterial pressure of about greater than 65 mmHg. We will continue empiric community-acquired pneumonia therapy. Thankfully, coronavirus PCR test is negative. She will be n.p.o. for now. NG tube has been connected to low intermittent suction. I will defer to Cardiology for an acute coronary syndrome workup. The family has been invited to come in and see the patient considering how grave status at this point in time. DVT, like I said, she is on full anticoagulation. P.r.n. analgesia will be given per her CPOT score. Flu and pneumonia vaccination will be addressed per protocol. Thank you very much for the consult. We will follow along and make further recommendations as picture progresses/becomes clearer. She is critically ill on life-sustaining interventions including mechanical ventilatory support and vasopressors at very high risk of from cardiopulmonary system decompensation. She will also benefit from a Neurology evaluation down the road. At this time, I spent about 35-40 minutes of critical care time without overlap and excluding any procedural time that may be necessary. TID: [id number] RECEIPT: [id number] ANTONIO/NONA
[2020-11-11] MEDS: NORepinephrine/NS 8 MG-250 ML 8 MG/250 ML INFUS..BTL IV SCH ×4 (02:30→18:36)
[2020-11-11] MEDS: PANTOPRAZOLE 80 MG in SODIUM CHLORIDE 0.9% 100 ML IV SCH (03:45)
--- NOTE | 2020-11-11 03:45 | XRay Report ---
CHEST 1 VIEW INDICATION / CLINICAL INFORMATION: follow up respiratory failure. FINDINGS: SUPPORT DEVICES: No significant change in position. HEART / MEDIASTINUM: The cardiomediastinal silhouette has not significantly changed in the interim. LUNGS / PLEURA: Scattered airspace opacity unchanged from 11/09/2020. Signer Name: Leobardo Holloway MD Signed: 11/11/2020 3:41 AM Workstation Name: [id number]
[2020-11-11 04:38] LABS: Hematocrit 25.8 % (30.3-42.9); Hemoglobin 8.7 gm/dl (10.1-14.3); Mean Corpuscular HGB Conc 34 % (30-34); Mean Corpuscular Volume 91 fl (79-97); Red Blood Count 2.83 M/mm3 (3.65-5.03); Red Cell Distribution Width 14.7 % (13.2-15.2)
[2020-11-11 04:39] LABS: Platelet Count 165 K/mm3 (140-440)
[2020-11-11 05:06] LABS: Albumin 2.7 g/dL (3.9-5); Calcium 7.6 mg/dL (8.4-10.2)
[2020-11-11] MEDS: cefTRIAXone/NS 2 GM/100 ML 2 GM/100 ML BAG IV SCH (10:05)
[2020-11-11] MEDS: SENNOSIDES/DOCUSATE SODIUM 8.6/50 MG TAB FEEDTUBE SCH ×3 (10:10→21:21)
[2020-11-11] MEDS: AZITHROMYCIN/NS 500 MG/250 ML 500 MG/250 ML BAG IV SCH (10:10)
[2020-11-11 10:30] LABS: ABG Base Excess -7.9 mmol/L (-2.0-3.0); ABG HCO3 16.7 mmol/L (20.0-26.0); ABG Methemoglobin 0.4 % (0.0-1.5); ABG Oxygen Saturation 99.1 % (95.0-99.0); ABG PCO2 29.4 mm Hg; ABG PH 7.371 pH Units (7.350-7.450); ABG PO2 172.4 mm Hg (80.0-90.0)
--- NOTE | 2020-11-11 11:01 | Gastroenterology Progress Note ---
Assessment and Plan Of note patient's antiXa is now in therapeutic range. Regarding the source of the bleed she did of note first have blood from the mouth, then have blood coming from her nares as well as the OG tube and she had not been having retching or vomiting and had not been bucking her vent. Therefore, the blood in the nostrils is less likely to be coming from a gastroesophageal source and rather is more likely to be a primary nasopharyngeal source and therefore likely bled from multiple locations from the initial supratherapeutic PTT yesterday. Given the above and her significant instability, it is still unlikely that an endoscopy will be beneficial and would carry significant risks at this juncture and would require holding her blood thinner for at least 6 hours if not 24-48 hours if I end up needing to perform an intervention. Therefore, I recommend Protonix 40 mg IV twice daily and continue close monitoring and continue to avoid supertherapeutic heparin levels and monitor hgb as that should contain the GI bleed. If she does develop severe GI bleeding then the benefits of endoscopy will increase and I will reassess for EGD. I will continue to follow closely with you - Patient Problems (1) Upper GI hemorrhage Current Visit: Yes Status: Acute (2) Atrial fibrillation Current Visit: Yes Status: Acute Qualifiers: Atrial fibrillation type: persistent (not longstanding) Qualified Code(s): I48.19 - Other persistent atrial fibrillation; I48.1 - Persistent atrial fibrillation (3) Cardiopulmonary arrest Current Visit: Yes Status: Acute Subjective Date of service: 11/11/20 Principal diagnosis: GI Bleed Interval history: Patient with declining hemoglobin Dried blood around mouth and nose and she remains intubated though more awake No melena when I spoke with the nurse though still with some dark blood from the OGT Objective - Constitutional Vitals: Temp Pulse Resp BP Pulse Ox 98.2 F 91 H 15 142/53 99 11/11/20 09:48 11/11/20 10:01 11/11/20 10:01 11/11/20 10:01 11/11/20 10:01 General appearance: other (Intubated) - EENT ENT: other (Dried blood around the nose) - Respiratory Respiratory effort: other (on vent still) - Cardiovascular Rhythm: regular - Gastrointestinal General gastrointestinal: Present: soft - Integumentary Integumentary: Present: dry - Labs CBC & Chem 7: 10/04/21 04:35 11/11/20 04:35 Labs: Laboratory Results - last 24 hr 11/10/20 11/10/20 11/10/20 04:28 11:06 12:30 WBC RBC Hgb Hct MCV MCH MCHC RDW Plt Count Lymph % (Auto) [place] % (Auto) Eos % (Auto) Baso % (Auto) Lymph # (Auto) [place] # (Auto) Eos # (Auto) Baso # (Auto) Seg Neutrophils % Seg Neutrophils # PT 18.9 H INR 1.53 H APTT 204.8 H* Fibrinogen 235 Heparin Anti-Xa Level 0.76 H ABG pH ABG pCO2 ABG pO2 ABG HCO3 ABG O2 Saturation ABG O2 Content ABG Base Excess ABG Hemoglobin ABG Carboxyhemoglobin ABG Methemoglobin Oxyhemoglobin FiO2 Sodium Potassium Chloride Carbon Dioxide Anion Gap BUN Creatinine Estimated GFR BUN/Creatinine Ratio Glucose POC Glucose Lactic Acid Calcium Total Bilirubin AST ALT Alkaline Phosphatase Total Protein Albumin Albumin/Globulin Ratio Procalcitonin 9.69 Urine Creatinine 80.9 H Urine Sodium 48 Urine Chloride 38.8 L Coronavirus (PCR) 11/10/20 11/10/20 11/10/20 15:08 15:08 15:08 WBC 16.1 H RBC 3.20 L Hgb 9.7 L Hct 29.5 L MCV 92 MCH 30 MCHC 33 RDW 14.4 Plt Count 196 Lymph % (Auto) 7.4 L [place] % (Auto) 8.7 H Eos % (Auto) 0.1 Baso % (Auto) 0.1 Lymph # (Auto) 1.2 [place] # (Auto) 1.4 H Eos # (Auto) 0.0 Baso # (Auto) 0.0 Seg Neutrophils % 83.7 H Seg Neutrophils # 13.5 H PT INR APTT Fibrinogen 299 Heparin Anti-Xa Level 0.56 ABG pH ABG pCO2 ABG pO2 ABG HCO3 ABG O2 Saturation ABG O2 Content ABG Base Excess ABG Hemoglobin ABG Carboxyhemoglobin ABG Methemoglobin Oxyhemoglobin FiO2 Sodium Potassium Chloride Carbon Dioxide Anion Gap BUN Creatinine Estimated GFR BUN/Creatinine Ratio Glucose POC Glucose Lactic Acid 4.10 H* Calcium Total Bilirubin AST ALT Alkaline Phosphatase Total Protein Albumin Albumin/Globulin Ratio Procalcitonin Urine Creatinine Urine Sodium Urine Chloride Coronavirus (PCR) 11/10/20 11/10/20 11/10/20 17:17 18:25 19:54 WBC RBC Hgb Hct MCV MCH MCHC RDW Plt Count Lymph % (Auto) [place] % (Auto) Eos % (Auto) Baso % (Auto) Lymph # (Auto) [place] # (Auto) Eos # (Auto) Baso # (Auto) Seg Neutrophils % Seg Neutrophils # PT INR APTT Fibrinogen Heparin Anti-Xa Level 0.13 L ABG pH 7.206 L ABG pCO2 47.2 ABG pO2 83.7 ABG HCO3 18.3 L ABG O2 Saturation 95.8 ABG O2 Content 12.6 ABG Base Excess -9.2 L ABG Hemoglobin 9.4 L ABG Carboxyhemoglobin 1.0 ABG Methemoglobin 0.6 Oxyhemoglobin 94.3 L FiO2 40 Sodium Potassium Chloride Carbon Dioxide Anion Gap BUN Creatinine Estimated GFR BUN/Creatinine Ratio Glucose POC Glucose 200 H Lactic Acid Calcium Total Bilirubin AST ALT Alkaline Phosphatase Total Protein Albumin Albumin/Globulin Ratio Procalcitonin Urine Creatinine Urine Sodium Urine Chloride Coronavirus (PCR) 11/10/20 11/10/20 11/10/20 20:21 23:30 Unknown WBC RBC Hgb 9.7 L Hct 28.4 L MCV MCH MCHC RDW Plt Count Lymph % (Auto) [place] % (Auto) Eos % (Auto) Baso % (Auto) Lymph # (Auto) [place] # (Auto) Eos # (Auto) Baso # (Auto) Seg Neutrophils % Seg Neutrophils # PT INR APTT Fibrinogen Heparin Anti-Xa Level ABG pH ABG pCO2 ABG pO2 ABG HCO3 ABG O2 Saturation ABG O2 Content ABG Base Excess ABG Hemoglobin ABG Carboxyhemoglobin ABG Methemoglobin Oxyhemoglobin FiO2 Sodium Potassium Chloride Carbon Dioxide Anion Gap BUN Creatinine Estimated GFR BUN/Creatinine Ratio Glucose POC Glucose 166 H Lactic Acid Calcium Total Bilirubin AST ALT Alkaline Phosphatase Total Protein Albumin Albumin/Globulin Ratio Procalcitonin Urine Creatinine Urine Sodium Urine Chloride Coronavirus (PCR) Negative 11/11/20 11/11/20 11/11/20 04:12 04:35 04:35 WBC 16.0 H RBC 2.83 L Hgb 8.7 L Hct 25.8 L MCV 91 MCH 31 MCHC 34 RDW 14.7 Plt Count 165 Lymph % (Auto) [place] % (Auto) Eos % (Auto) Baso % (Auto) Lymph # (Auto) [place] # (Auto) Eos # (Auto) Baso # (Auto) Seg Neutrophils % Seg Neutrophils # PT INR APTT Fibrinogen Heparin Anti-Xa Level 0.29 L ABG pH ABG pCO2 ABG pO2 ABG HCO3 ABG O2 Saturation ABG O2 Content ABG Base Excess ABG Hemoglobin ABG Carboxyhemoglobin ABG Methemoglobin Oxyhemoglobin FiO2 Sodium 136 L Potassium 4.5 D Chloride 103.9 Carbon Dioxide 17 L Anion Gap 20 BUN 25 H Creatinine 2.5 H Estimated GFR 22 BUN/Creatinine Ratio 10 Glucose 192 H POC Glucose Lactic Acid Calcium 7.6 L Total Bilirubin 0.30 AST 232 H ALT 309 H Alkaline Phosphatase 92 Total Protein 5.7 L Albumin 2.7 L Albumin/Globulin Ratio 0.9 Procalcitonin Urine Creatinine Urine Sodium Urine Chloride Coronavirus (PCR) 11/11/20 11/11/20 11/11/20 05:00 05:01 09:45 WBC RBC Hgb Hct MCV MCH MCHC RDW Plt Count Lymph % (Auto) [place] % (Auto) Eos % (Auto) Baso % (Auto) Lymph # (Auto) [place] # (Auto) Eos # (Auto) Baso # (Auto) Seg Neutrophils % Seg Neutrophils # PT INR APTT Fibrinogen Heparin Anti-Xa Level ABG pH 7.371 ABG pCO2 29.4 ABG pO2 172.4 H ABG HCO3 16.7 L ABG O2 Saturation 99.1 H ABG O2 Content 8.8 ABG Base Excess -7.9 L ABG Hemoglobin 6.1 L ABG Carboxyhemoglobin 0.9 ABG Methemoglobin 0.4 Oxyhemoglobin 97.8 FiO2 55 Sodium Potassium Chloride Carbon Dioxide Anion Gap BUN Creatinine Estimated GFR BUN/Creatinine Ratio Glucose POC Glucose 191 H Lactic Acid 2.20 H* Calcium Total Bilirubin AST ALT Alkaline Phosphatase Total Protein Albumin Albumin/Globulin Ratio Procalcitonin Urine Creatinine Urine Sodium Urine Chloride Coronavirus (PCR)
[2020-11-11] MEDS ORDERED: DEXTROSE 50% IN WATER (25GM) 50 ML SYRINGE IV PRN (11:10)
--- NOTE | 2020-11-11 11:20 | Progress Note ---
Assessment and Plan - Patient Problems (1) Acute kidney injury Current Visit: Yes Status: Acute Plan to address problem: Likely pre-renal injury in the setting of acute b/l PE with cor pulmonale and right sided heart failure. Underwent emergent CTA with contrast exposure which can also lead to further renal injury. Cont IVF with NS + 20 meq KCl to run at 75 cc/hr, along with vasopressor support to maintain MAP >65 mmHg, Avoid nephrotoxins. Pt with rising BUN/Cr, however with increased UOP this AM. No acute indication for renal replacement therapy at present. Prelim renal US showed no evidence of obstructive uropathy, b/l echogenic kidneys seen. Will follow closely (2) Acute pulmonary embolism with acute cor pulmonale Current Visit: Yes Status: Acute Qualifiers: Pulmonary embolism type: saddle Qualified Code(s): I26.02 - Saddle embolus of pulmonary artery with acute cor pulmonale Plan to address problem: s/p pulmonary angiography and placement of b/l thrombolytics catheter placement by vascular surgery. Follow up further recommendations from cardiology. Unclear etiology of b/l PE. (3) Cardiopulmonary arrest Current Visit: Yes Status: Acute Plan to address problem: On multiple pressor support. Intubated, sedated. Further recommendations per cardiology. (4) Hypokalemia Current Visit: Yes Status: Acute Plan to address problem: normalized with IV KCl supplementation Subjective Date of service: 11/11/20 Principal diagnosis: GI Bleed Interval history: Pt remains intubated, sedated, undergoing renal US this AM, pt remains on vasopressor support with dopamine and levophed. Currently non-oliguric. Objective - Vital Signs Vital signs: Vital Signs - 12hr 11/11/20 11/11/20 11/11/20 00:00 00:20 01:01 Temperature Pulse Rate 102 H 104 H 101 H Pulse Rate [ None] Respiratory 30 H 30 H 16 Rate Blood Pressure 152/60 89/42 O2 Sat by Pulse 100 100 Oximetry 11/11/20 11/11/20 11/11/20 01:45 02:00 02:25 Temperature Pulse Rate 104 H 95 H Pulse Rate [ 91 H None] Respiratory 30 H 30 H Rate Blood Pressure 168/78 129/62 O2 Sat by Pulse 100 100 100 Oximetry 11/11/20 11/11/20 11/11/20 03:00 03:25 04:00 Temperature 99.2 F Pulse Rate 93 H 73 71 Pulse Rate [ None] Respiratory 30 H 30 H Rate Blood Pressure 163/55 135/50 119/49 O2 Sat by Pulse 100 100 99 Oximetry 11/11/20 11/11/20 11/11/20 05:01 06:00 06:01 Temperature Pulse Rate 83 76 76 Pulse Rate [ None] Respiratory 20 30 H Rate Blood Pressure 117/51 123/47 O2 Sat by Pulse 100 100 Oximetry 11/11/20 11/11/20 11/11/20 07:00 08:00 09:00 Temperature Pulse Rate 74 77 77 Pulse Rate [ None] Respiratory 30 H 17 23 Rate Blood Pressure 130/52 134/53 144/60 O2 Sat by Pulse 100 100 100 Oximetry 11/11/20 11/11/20 09:48 10:01 Temperature 98.2 F Pulse Rate 91 H Pulse Rate [ None] Respiratory 15 Rate Blood Pressure 142/53 O2 Sat by Pulse 99 Oximetry - General Appearance General appearance: well-developed, sedated on ventilator, intubated EENT: ATNC, mucous membranes moist Neck: no JVD Respiratory: Present: Clear to Ascultation Cardiology: regular, S1S2 Gastrointestinal: normoactive bowel sounds Integumentary: no rash Neurologic: other (intubated, sedated ) - Lab 11/11/20 04:35 11/11/20 04:35 Most recent lab results ABG pH 7.371 pH Units (7.350-7.450) 11/11/20 09:45 ABG pCO2 29.4 mm Hg 11/11/20 09:45 ABG pO2 172.4 mm Hg (80.0-90.0) H 11/11/20 09:45 ABG HCO3 16.7 mmol/L (20.0-26.0) L 11/11/20 09:45 ABG O2 Saturation 99.1 % (95.0-99.0) H 11/11/20 09:45 Calcium 7.6 mg/dL (8.4-10.2) L 11/11/20 04:35 Urine Creatinine 80.9 mg/dL (0.1-20.0) H 11/10/20 11:06 Urine Sodium 48 mmol/L 11/10/20 11:06 Medications & Allergies - Medications Allergies/Adverse Reactions: Allergies No Known Allergies Allergy (Verified 11/09/20 17:19) Active Medications: Generic Name Dose Route Start Last Admin Trade Name Freq PRN Reason Stop Dose Admin Acetaminophen 650 mg 11/09/20 23:07 Acetaminophen 650 Mg Rect Supp MI Q6H PRN Pain MILD(1-3)/Fever >100.5/REYES Acetaminophen 650 mg 11/09/20 23:59 Acetaminophen 325 Mg Tab PO Q6H PRN Pain, Mild (1-3) Hydrocodone Bitart/Acetaminophen 2 each 11/09/20 23:59 Hydrocodone/Acetaminophen 5-325 Mg Tab PO Q6H PRN Pain, Moderate (4-6) Dextrose 50 ml 11/11/20 11:10 Dextrose 50% In Water (25gm) 50 Ml Syringe IV Q30MIN PRN Hypoglycemia Protocol Fentanyl 50 mcg 11/09/20 22:37 Fentanyl 100 Mcg/2 Ml Inj IV Q10MIN PRN ANALGESIA Hydralazine HCl 10 mg 11/10/20 16:49 Hydralazine 20 Mg/1 Ml Inj IV Q6H PRN Blood Pressure Hydrophilic Ointment 1 applic 11/09/20 17:08 Lip Therapy Vaseline TP Q2H PRN Dry Lips Propofol 1,000 mg in 100 mls @ 2.245 mls/hr 11/09/20 18:00 11/11/20 02:25 Diprivan 10 Mg/Ml IV 5 mcg/kg/min TITR MELONY 2.245 mls/hr Titration Protocol 5 MCG/KG/MIN NORepinephrine/NS 8 MG-250 ML 8 mg in 250 mls @ 3.75 mls/hr 11/09/20 18:00 11/11/20 02:34 Norepinephrine/Ns 8 Mg-250 Ml (Double Conc) IV 24 mcg/min TITRATE MELONY 45 mls/hr Titration Protocol 2 MCG/MIN Fentanyl Citrate 2,000 mcg in 100 mls @ 11.226 mls/hr 11/09/20 23:00 11/10/20 21:30 Fentanyl Drip Premix IV 1 mcg/kg/hr TITR MELONY 3.742 mls/hr Administration Protocol 3 MCG/KG/HR Ceftriaxone Sodium 2 gm in 100 mls @ 200 mls/hr 11/09/20 23:45 11/11/20 10:05 Rocephin/Ns 2 Gm/100 Ml IV 11/13/20 10:29 200 mls/hr Q24HR MELONY Administration Protocol Azithromycin 500 mg in 250 mls @ 250 mls/hr 11/09/20 23:45 11/11/20 10:10 Zithromax/Ns IV 11/13/20 10:59 250 mls/hr Q24HR MELONY Administration Protocol Potassium Chloride/Sodium Chloride 20 meq in 1,000 mls @ 75 mls/hr 11/10/20 12:00 Ns/Kcl 20meq IV DIRECT MELONY Heparin Sodium/Sodium Chloride 25,000 unit in 500 mls @ 24 mls/hr 11/10/20 12:00 11/11/20 06:30 Heparin/ 0.45% Nacl-25,000 Unit/500 Ml IV 1,000 units/hr TITR MELONY 20 mls/hr Titration Protocol 1,200 UNITS/HR Pantoprazole Sodium 80 mg/ 100 mls @ 10 mls/hr 11/10/20 17:00 11/11/20 03:45 Sodium Chloride IV 11/11/20 14:00 8 mg/hr DIRECT MELONY 10 mls/hr Administration 8 MG/HR Dopamine HCl/Dextrose 800 mg in 250 mls @ 22.5 mls/hr 11/10/20 21:40 11/11/20 02:40 Intropin Drip 800 Mg/D5w 250 Ml IV 10 mcg/kg/min TITR MELONY 15 mls/hr Titration Protocol 15 MCG/KG/MIN Insulin Human Regular 0 units 11/11/20 12:00 Insulin Regular, Human 100 Units/1 Ml SUB-Q Q6H MELONY Protocol Magnesium Hydroxide 30 ml 11/09/20 23:07 Magnesium Hydroxide (Mom) Oral Liqd Udc PO Q4H PRN Constipation Multi-Ingred Cream/Lotion/Oil/Oint 1 applic 11/09/20 17:08 Mineral Oil/Petrolatum, White Ophth Oint 3.5 Gm OU Q4H PRN Dry Eye(s) Ondansetron HCl 4 mg 11/09/20 23:07 Ondansetron 4 Mg/2 Ml Inj IV Q8H PRN Nausea And Vomiting Pantoprazole Sodium 40 mg 11/11/20 22:00 Pantoprazole 40 Mg Inj IV BID MELONY Senna/Docusate Sodium 1 tab 11/09/20 22:00 11/11/20 10:10 Sennosides/Docusate Sodium 8.6/50 Mg Tab FEEDTUBE 1 tab BID MELONY Administration Sodium Chloride 10 ml 11/10/20 10:00 11/11/20 10:10 Sodium Chloride 0.9% 10 Ml Flush Syringe IV 10 ml BID MELONY Administration Sodium Chloride 10 ml 11/09/20 23:07 Sodium Chloride 0.9% 10 Ml Flush Syringe IV PRN PRN LINE FLUSH
[2020-11-11] MEDS ORDERED: DOBUTamine/D5W 500 MG/250 ML 500 MG/250 ML BAG IV SCH (13:00)
--- NOTE | 2020-11-11 13:41 | Progress Note ---
Assessment and Plan Acute hypoxemic respiratory failure Acute pulmonary embolism bilaterally Bilateral pulmonary infiltrates/pneumonia Cardiac arrest with ROSC Rutmq-ed-[id number] kidney injury Oropharyngeal dysphagia HTN Shock (cardiogenic and hypovolemic) Chronic right bundle-branch block Arthritis Thrombocytopenia Coagulopathy Hypokalemia Severe metabolic acidosis Lactic acidosis Elevated serum transaminases Possible NSTEMI - ECHO shows HFpEF - reduced set rate to 20/min - repeat ABG at 9 pm - tentatively begin weaning in am - transitioned to double dose PPI therapy - platelet count has rebounded - follow I's & O's; leave prince in place in short term re: critical illness and TYLER - continue full anticoagulation for VTE - repeat H&H at 9pm tonight - G.I. evaluation ongoing - remains on Levophed (wean for target MAP > 65 mmHg - Dobutrex added for inotropic support - continue care as below otherwise; - Daily SAT and SBT assessment as tolerated - continue to wean supplemental oxygen for target O2 sat's > 90% acutely - VAP bundle addressed - continue lung protective strategies - continue bronchodilators with pulmonary hygiene per RT - wean per pulmonary driven protocols otherwise - continue accuchecks with glycemic control per SSI (While critically ill target blood glucose of 140-180 mg/dL; avoid hypoglycemia) - sedation prn for target RASS 0 to -1 - avoid nephrotoxins, renally dose all medications - continue to avoid benzodiazepine's, reduce the possibility of delirium - completed AB's per ID rec's - prn analgesia per CPOT score - Maintenance of sleep-wake cycle, avoid delirium - continue enteral nutritional support at goal rate as tolerated - G.I. & VTE prophylaxis - PT/OT/ROM exercises - continue mobility protocols for pressure ulcer prophylaxis - Monitor hemodynamics closely - continue other care per attending / other consultants - discharge planning ongoing concurrently COVID SPECIFIC INTERVENTIONS - COVID-19 test negative .... Re-evaluate in am & prn CONDITION: CRITICAL PROGNOSIS: GUARDED CODE STATUS: FULL CODE The high probability of a clinically significant, sudden or life-threatening deterioration of the [respiratory, cardiovascular, GI & neurologic] system(s) required my full and direct attention, intervention and personal management. The aggregate critical care time was [34] minutes without overlap. Time includes spent on; [x] Data Review and interpretation [x] Patient assessment and monitoring of vital signs [x] Documentation [x] Medication orders and management Subjective Date of service: 11/11/20 Principal diagnosis: Ac. hypoxemic resp failure; P.E.; PNA; Cardiac arrest; TYLER; Shock Interval history: Patient is seen today for: Acute hypoxemic respiratory failure; Acute P.E.; Pneumonia; Cardiac arrest with ROSC; TYLER; Shock (cardiogenic and hypovolemic); Thrombocytopenia Seen and examined at bedside; 24hour events reviewed; nursing and respiratory care staff consulted; no adverse overnight events reported to me; resting in bed; following commands appropriately; denies acute chest opr other pain; remains on Levophed and Dopamine but weaning; bleeding has slowed down; seen by GI team and input appreciated Objective Vital Signs - 12hr 11/11/20 11/11/20 11/11/20 01:45 02:00 02:25 Temperature Pulse Rate 104 H 95 H Pulse Rate [ 91 H None] Respiratory 30 H 30 H Rate Blood Pressure 168/78 129/62 O2 Sat by Pulse 100 100 100 Oximetry 11/11/20 11/11/20 11/11/20 03:00 03:25 04:00 Temperature 99.2 F Pulse Rate 93 H 73 71 Pulse Rate [ None] Respiratory 30 H 30 H Rate Blood Pressure 163/55 135/50 119/49 O2 Sat by Pulse 100 100 99 Oximetry 11/11/20 11/11/20 11/11/20 05:01 06:00 06:01 Temperature Pulse Rate 83 76 76 Pulse Rate [ None] Respiratory 20 30 H Rate Blood Pressure 117/51 123/47 O2 Sat by Pulse 100 100 Oximetry 11/11/20 11/11/20 11/11/20 07:00 08:00 09:00 Temperature Pulse Rate 74 77 77 Pulse Rate [ None] Respiratory 30 H 17 23 Rate Blood Pressure 130/52 134/53 144/60 O2 Sat by Pulse 100 100 100 Oximetry 11/11/20 11/11/20 11/11/20 09:48 10:01 11:49 Temperature 98.2 F Pulse Rate 91 H Pulse Rate [ None] Respiratory 15 Rate Blood Pressure 142/53 O2 Sat by Pulse 99 100 Oximetry 11/11/20 12:00 Temperature 98.1 F Pulse Rate Pulse Rate [ None] Respiratory Rate Blood Pressure O2 Sat by Pulse Oximetry Constitutional: no acute distress, other (elderly obese female without increased respiratory effort at rest) Eyes: non-icteric ENT: oropharynx moist, oropharyngeal exudate pre Neck: supple, no lymphadenopathy, no JVD Effort: normal Ascultation: Bilateral: diminished breath sounds, rhonchi Percussion: Bilateral: not dull Cardiovascular: regular rate and rhythm Gastrointestinal: normoactive bowel sounds, soft, non-tender, non-distended (protuberant) Integumentary: normal Extremities: no cyanosis, pulses normal, no ischemia or petechiae Neurologic: non-focal exam (grossly), pupils equal and round, CN II-XII normal Psychiatric: mood appropriate (no new infiltrate), affect normal CBC and BMP: 11/11/20 04:35 11/11/20 04:35 ABG, PT/INR, D-dimer: ABG ABG pH 7.371 pH Units (7.350-7.450) 11/11/20 09:45 POC ABG pCO2 43.4 mmHg (32.0-48.0) 11/10/20 05:13 ABG pCO2 29.4 mm Hg 11/11/20 09:45 POC ABG pO2 162.0 mmHg (83-108) H 11/10/20 05:13 ABG pO2 172.4 mm Hg (80.0-90.0) H 11/11/20 09:45 POC ABG HCO3 17.4 11/10/20 05:13 ABG O2 Saturation 99.1 % (95.0-99.0) H 11/11/20 09:45 PT/INR, D-dimer PT 18.9 Sec. (12.2-14.9) H 11/10/20 12:30 INR 1.53 (0.87-1.13) H 11/10/20 12:30 D-Dimer > 59331 ng/mlDDU (0-234) H 11/10/20 04:28 Abnormal lab findings: Abnormal Labs 11/09/20 11/09/20 11/09/20 17:24 17:24 17:24 WBC RBC 3.29 L Hgb Hct Plt Count 100 L Lymph % (Auto) 54.6 H [place] % (Auto) [place] # (Auto) Seg Neutrophils % 38.5 L Seg Neuts % (Manual) Lymphocytes % (Manual) Seg Neutrophils # Seg Neutrophils # Man Lymphocytes # (Manual) PT 19.9 H INR 1.64 H APTT 49.2 H Fibrinogen D-Dimer > 94704 H Heparin Anti-Xa Level ABG pH POC ABG pO2 ABG pO2 ABG HCO3 ABG O2 Saturation ABG Base Excess ABG Hemoglobin ABG Oxyhemoglobin ABG Sodium ABG Potassium ABG Glucose Oxyhemoglobin Carboxyhemoglobin Sodium Potassium 2.9 L* Carbon Dioxide 13 L BUN Creatinine 1.4 H Glucose 391 H POC Glucose Lactic Acid Calcium AST ALT Lactate Dehydrogenase Total Creatine Kinase CK-MB (CK-2) 5.0 H CK-MB (CK-2) Rel Index 4.8 H Troponin T 0.263 H* C-Reactive Protein NT-Pro-B Natriuret Pep Total Protein Albumin Triglycerides 163 H HDL Cholesterol 29 L Arterial Blood Glucose Urine Creatinine Urine Chloride 11/09/20 11/09/20 11/09/20 17:24 18:11 18:21 WBC RBC Hgb Hct Plt Count Lymph % (Auto) [place] % (Auto) [place] # (Auto) Seg Neutrophils % Seg Neuts % (Manual) Lymphocytes % (Manual) Seg Neutrophils # Seg Neutrophils # Man Lymphocytes # (Manual) PT INR APTT Fibrinogen D-Dimer Heparin Anti-Xa Level ABG pH 7.053 L POC ABG pO2 159.6 H ABG pO2 ABG HCO3 ABG O2 Saturation ABG Base Excess ABG Hemoglobin ABG Oxyhemoglobin ABG Sodium 135.1 L ABG Potassium ABG Glucose 421 H Oxyhemoglobin Carboxyhemoglobin 0.3 L Sodium Potassium Carbon Dioxide BUN Creatinine Glucose POC Glucose Lactic Acid 11.40 H* Calcium AST 312 H ALT 273 H Lactate Dehydrogenase Total Creatine Kinase CK-MB (CK-2) CK-MB (CK-2) Rel Index Troponin T C-Reactive Protein NT-Pro-B Natriuret Pep 1169 H Total Protein 5.2 L Albumin 2.8 L Triglycerides HDL Cholesterol Arterial Blood Glucose 421 H Urine Creatinine Urine Chloride 11/09/20 11/09/20 11/09/20 20:07 20:07 23:05 WBC RBC Hgb Hct Plt Count Lymph % (Auto) [place] % (Auto) [place] # (Auto) Seg Neutrophils % Seg Neuts % (Manual) Lymphocytes % (Manual) Seg Neutrophils # Seg Neutrophils # Man Lymphocytes # (Manual) PT INR APTT Fibrinogen D-Dimer Heparin Anti-Xa Level ABG pH POC ABG pO2 ABG pO2 ABG HCO3 ABG O2 Saturation ABG Base Excess ABG Hemoglobin ABG Oxyhemoglobin ABG Sodium ABG Potassium ABG Glucose Oxyhemoglobin Carboxyhemoglobin Sodium Potassium Carbon Dioxide BUN Creatinine Glucose POC Glucose Lactic Acid 9.00 H* Calcium AST ALT Lactate Dehydrogenase Total Creatine Kinase 340 H 449 H CK-MB (CK-2) 14.2 H 18.4 H CK-MB (CK-2) Rel Index 4.1 H Troponin T 0.553 H* D 0.873 H* D C-Reactive Protein NT-Pro-B Natriuret Pep Total Protein Albumin Triglycerides HDL Cholesterol Arterial Blood Glucose Urine Creatinine Urine Chloride 11/09/20 11/10/20 11/10/20 23:05 00:42 04:28 WBC RBC Hgb Hct Plt Count Lymph % (Auto) [place] % (Auto) [place] # (Auto) Seg Neutrophils % Seg Neuts % (Manual) Lymphocytes % (Manual) Seg Neutrophils # Seg Neutrophils # Man Lymphocytes # (Manual) PT 19.8 H 20.3 H INR 1.63 H 1.69 H APTT Fibrinogen 210 L D-Dimer > 61002 H Heparin Anti-Xa Level 0.79 H ABG pH POC ABG pO2 ABG pO2 ABG HCO3 ABG O2 Saturation ABG Base Excess ABG Hemoglobin ABG Oxyhemoglobin ABG Sodium ABG Potassium ABG Glucose Oxyhemoglobin Carboxyhemoglobin Sodium Potassium Carbon Dioxide BUN Creatinine Glucose POC Glucose Lactic Acid 6.80 H* Calcium AST ALT Lactate Dehydrogenase Total Creatine Kinase CK-MB (CK-2) CK-MB (CK-2) Rel Index Troponin T C-Reactive Protein NT-Pro-B Natriuret Pep Total Protein Albumin Triglycerides HDL Cholesterol Arterial Blood Glucose Urine Creatinine Urine Chloride 11/10/20 11/10/20 11/10/20 04:28 04:28 04:28 WBC 17.7 H RBC Hgb Hct Plt Count Lymph % (Auto) [place] % (Auto) [place] # (Auto) Seg Neutrophils % Seg Neuts % (Manual) 96.0 H Lymphocytes % (Manual) 1.0 L Seg Neutrophils # Seg Neutrophils # Man 17.0 H Lymphocytes # (Manual) 0.2 L PT INR APTT Fibrinogen D-Dimer Heparin Anti-Xa Level ABG pH POC ABG pO2 ABG pO2 ABG HCO3 ABG O2 Saturation ABG Base Excess ABG Hemoglobin ABG Oxyhemoglobin ABG Sodium ABG Potassium ABG Glucose Oxyhemoglobin Carboxyhemoglobin Sodium 136 L Potassium 3.3 L Carbon Dioxide 16 L BUN 21 H Creatinine 1.8 H Glucose 376 H POC Glucose Lactic Acid Calcium AST ALT Lactate Dehydrogenase 1637 H Total Creatine Kinase CK-MB (CK-2) CK-MB (CK-2) Rel Index Troponin T C-Reactive Protein 3.50 H NT-Pro-B Natriuret Pep Total Protein Albumin Triglycerides HDL Cholesterol Arterial Blood Glucose Urine Creatinine Urine Chloride 11/10/20 11/10/20 11/10/20 04:28 05:13 11:06 WBC RBC Hgb Hct Plt Count Lymph % (Auto) [place] % (Auto) [place] # (Auto) Seg Neutrophils % Seg Neuts % (Manual) Lymphocytes % (Manual) Seg Neutrophils # Seg Neutrophils # Man Lymphocytes # (Manual) PT INR APTT Fibrinogen D-Dimer Heparin Anti-Xa Level ABG pH 7.221 L POC ABG pO2 162.0 H ABG pO2 ABG HCO3 ABG O2 Saturation ABG Base Excess ABG Hemoglobin 11.7 L ABG Oxyhemoglobin 98.9 H ABG Sodium 133.6 L ABG Potassium 3.1 L ABG Glucose 346 H Oxyhemoglobin Carboxyhemoglobin 0.1 L Sodium Potassium Carbon Dioxide BUN Creatinine Glucose POC Glucose Lactic Acid 6.10 H* Calcium AST ALT Lactate Dehydrogenase Total Creatine Kinase CK-MB (CK-2) CK-MB (CK-2) Rel Index Troponin T C-Reactive Protein NT-Pro-B Natriuret Pep Total Protein Albumin Triglycerides HDL Cholesterol Arterial Blood Glucose 346 H Urine Creatinine 80.9 H Urine Chloride 38.8 L 11/10/20 11/10/20 11/10/20 12:30 15:08 15:08 WBC 16.1 H RBC 3.20 L Hgb 9.7 L Hct 29.5 L Plt Count Lymph % (Auto) 7.4 L [place] % (Auto) 8.7 H [place] # (Auto) 1.4 H Seg Neutrophils % 83.7 H Seg Neuts % (Manual) Lymphocytes % (Manual) Seg Neutrophils # 13.5 H Seg Neutrophils # Man Lymphocytes # (Manual) PT 18.9 H INR 1.53 H APTT 204.8 H* Fibrinogen D-Dimer Heparin Anti-Xa Level 0.76 H ABG pH POC ABG pO2 ABG pO2 ABG HCO3 ABG O2 Saturation ABG Base Excess ABG Hemoglobin ABG Oxyhemoglobin ABG Sodium ABG Potassium ABG Glucose Oxyhemoglobin Carboxyhemoglobin Sodium Potassium Carbon Dioxide BUN Creatinine Glucose POC Glucose Lactic Acid 4.10 H* Calcium AST ALT Lactate Dehydrogenase Total Creatine Kinase CK-MB (CK-2) CK-MB (CK-2) Rel Index Troponin T C-Reactive Protein NT-Pro-B Natriuret Pep Total Protein Albumin Triglycerides HDL Cholesterol Arterial Blood Glucose Urine Creatinine Urine Chloride 11/10/20 11/10/20 11/10/20 17:17 18:25 19:54 WBC RBC Hgb Hct Plt Count Lymph % (Auto) [place] % (Auto) [place] # (Auto) Seg Neutrophils % Seg Neuts % (Manual) Lymphocytes % (Manual) Seg Neutrophils # Seg Neutrophils # Man Lymphocytes # (Manual) PT INR APTT Fibrinogen D-Dimer Heparin Anti-Xa Level 0.13 L ABG pH 7.206 L POC ABG pO2 ABG pO2 ABG HCO3 18.3 L ABG O2 Saturation ABG Base Excess -9.2 L ABG Hemoglobin 9.4 L ABG Oxyhemoglobin ABG Sodium ABG Potassium ABG Glucose Oxyhemoglobin 94.3 L Carboxyhemoglobin Sodium Potassium Carbon Dioxide BUN Creatinine Glucose POC Glucose 200 H Lactic Acid Calcium AST ALT Lactate Dehydrogenase Total Creatine Kinase CK-MB (CK-2) CK-MB (CK-2) Rel Index Troponin T C-Reactive Protein NT-Pro-B Natriuret Pep Total Protein Albumin Triglycerides HDL Cholesterol Arterial Blood Glucose Urine Creatinine Urine Chloride 11/10/20 11/10/20 11/11/20 20:21 23:30 04:12 WBC RBC Hgb 9.7 L Hct 28.4 L Plt Count Lymph % (Auto) [place] % (Auto) [place] # (Auto) Seg Neutrophils % Seg Neuts % (Manual) Lymphocytes % (Manual) Seg Neutrophils # Seg Neutrophils # Man Lymphocytes # (Manual) PT INR APTT Fibrinogen D-Dimer Heparin Anti-Xa Level 0.29 L ABG pH POC ABG pO2 ABG pO2 ABG HCO3 ABG O2 Saturation ABG Base Excess ABG Hemoglobin ABG Oxyhemoglobin ABG Sodium ABG Potassium ABG Glucose Oxyhemoglobin Carboxyhemoglobin Sodium Potassium Carbon Dioxide BUN Creatinine Glucose POC Glucose 166 H Lactic Acid Calcium AST ALT Lactate Dehydrogenase Total Creatine Kinase CK-MB (CK-2) CK-MB (CK-2) Rel Index Troponin T C-Reactive Protein NT-Pro-B Natriuret Pep Total Protein Albumin Triglycerides HDL Cholesterol Arterial Blood Glucose Urine Creatinine Urine Chloride 11/11/20 11/11/20 11/11/20 04:35 04:35 05:00 WBC 16.0 H RBC 2.83 L Hgb 8.7 L Hct 25.8 L Plt Count Lymph % (Auto) [place] % (Auto) [place] # (Auto) Seg Neutrophils % Seg Neuts % (Manual) Lymphocytes % (Manual) Seg Neutrophils # Seg Neutrophils # Man Lymphocytes # (Manual) PT INR APTT Fibrinogen D-Dimer Heparin Anti-Xa Level ABG pH POC ABG pO2 ABG pO2 ABG HCO3 ABG O2 Saturation ABG Base Excess ABG Hemoglobin ABG Oxyhemoglobin ABG Sodium ABG Potassium ABG Glucose Oxyhemoglobin Carboxyhemoglobin Sodium 136 L Potassium Carbon Dioxide 17 L BUN 25 H Creatinine 2.5 H Glucose 192 H POC Glucose Lactic Acid 2.20 H* Calcium 7.6 L AST 232 H ALT 309 H Lactate Dehydrogenase Total Creatine Kinase CK-MB (CK-2) CK-MB (CK-2) Rel Index Troponin T C-Reactive Protein NT-Pro-B Natriuret Pep Total Protein 5.7 L Albumin 2.7 L Triglycerides HDL Cholesterol Arterial Blood Glucose Urine Creatinine Urine Chloride 11/11/20 11/11/20 11/11/20 05:01 09:45 12:34 WBC RBC Hgb Hct Plt Count Lymph % (Auto) [place] % (Auto) [place] # (Auto) Seg Neutrophils % Seg Neuts % (Manual) Lymphocytes % (Manual) Seg Neutrophils # Seg Neutrophils # Man Lymphocytes # (Manual) PT INR APTT Fibrinogen D-Dimer Heparin Anti-Xa Level ABG pH POC ABG pO2 ABG pO2 172.4 H ABG HCO3 16.7 L ABG O2 Saturation 99.1 H ABG Base Excess -7.9 L ABG Hemoglobin 6.1 L ABG Oxyhemoglobin ABG Sodium ABG Potassium ABG Glucose Oxyhemoglobin Carboxyhemoglobin Sodium Potassium Carbon Dioxide BUN Creatinine Glucose POC Glucose 191 H 141 H Lactic Acid Calcium AST ALT Lactate Dehydrogenase Total Creatine Kinase CK-MB (CK-2) CK-MB (CK-2) Rel Index Troponin T C-Reactive Protein NT-Pro-B Natriuret Pep Total Protein Albumin Triglycerides HDL Cholesterol Arterial Blood Glucose Urine Creatinine Urine Chloride Chest x-ray: image reviewed Allied health notes reviewed: nursing
[2020-11-11] MEDS ORDERED: SODIUM CHLORIDE 0.9% 500 ML 500 ML IV SCH (15:00)
[2020-11-11] MEDS ORDERED: SODIUM CHLORIDE 0.9% 500 ML 1,000 ML IV SCH (15:00)
--- NOTE | 2020-11-11 15:37 | Progress Note ---
Assessment and Plan 84-year-old female with hypertension obesity suffered a cardiac arrest secondary to large pulmonary embolism with RV dysfunction and failure with a non-ST elevation W[place] hypotension and acute renal sufficiency Acute respiratory failure with hypoxia * Patient intubated * Pulmonology is following Non-STEMI (non-ST elevated myocardial infarction) Acute pulmonary embolism with acute cor pulmonale Atrial fibrillation * Patient currently on pressors( levo and dopamine) * Anticoagulated with Heparin gtt * Patient currently sinus rhythm * Echo 11/10/2020-EF 50 to 55%, right ventricular systolic function is normal, right ventricle is mildly dilated, left atrium not well visualized, mild mitral regurgitation, moderate pulmonary hypertension Acute kidney injury * Nephrology currently following Anemia * GI consulted Plan: Stopped dopamine gtt. Initiate dobutamine and fluids. Will continue to follow Patient seen in conjunction with Dr. Ratliff who agrees with this plan of care. Will continue to follow - Patient Problems (1) Acute kidney injury Current Visit: Yes Status: Acute (2) Acute pulmonary embolism with acute cor pulmonale Current Visit: Yes Status: Acute Qualifiers: Pulmonary embolism type: saddle Qualified Code(s): I26.02 - Saddle embolus of pulmonary artery with acute cor pulmonale (3) Acute respiratory failure with hypoxia Current Visit: Yes Status: Acute (4) Atrial fibrillation Current Visit: Yes Status: Acute Qualifiers: Atrial fibrillation type: persistent (not longstanding) Qualified Code(s): I48.19 - Other persistent atrial fibrillation; I48.1 - Persistent atrial fibrillation (5) Cardiopulmonary arrest Current Visit: Yes Status: Acute (6) Hypokalemia Current Visit: Yes Status: Acute (7) Non-STEMI (non-ST elevated myocardial infarction) Current Visit: Yes Status: Acute (8) RBBB Current Visit: Yes Status: Acute (9) Upper GI hemorrhage Current Visit: Yes Status: Acute Subjective Date of service: 11/11/20 Principal diagnosis: Ac. hypoxemic resp failure; P.E.; PNA; Cardiac arrest; TYLER; Shock Interval history: Patient lying in bed intubated Sinus 80s on monitor Objective Vital Signs Temp Pulse Pulse Pulse Pulse Resp BP 11/11/20 12:00 98.1 F 11/11/20 11:49 11/11/20 10:01 91 H 15 142/53 11/11/20 09:48 98.2 F 11/11/20 09:00 77 23 144/60 11/11/20 08:00 77 17 134/53 11/11/20 07:00 74 30 H 130/52 11/11/20 06:01 76 30 H 123/47 11/11/20 06:00 76 11/11/20 05:01 83 20 117/51 11/11/20 04:00 99.2 F 71 30 H 119/49 11/11/20 03:25 73 135/50 11/11/20 03:00 93 H 30 H 163/55 11/11/20 02:25 91 H 30 H 129/62 11/11/20 02:00 95 H 30 H 168/78 11/11/20 01:45 104 H 11/11/20 01:01 101 H 16 89/42 11/11/20 00:20 104 H 30 H 11/11/20 00:00 102 H 30 H 152/60 11/10/20 23:16 103 H 131/50 11/10/20 23:01 103 H 29 H 131/50 11/10/20 23:00 102 H 30 H 131/50 11/10/20 22:01 104 H 28 H 88/51 11/10/20 22:00 104 H 30 H 11/10/20 21:00 99 H 29 H 130/48 11/10/20 20:04 100 H 124/52 11/10/20 20:00 98.2 F 100 H 29 H 136/54 11/10/20 19:00 99 H 100 H 100 H 24 129/48 11/10/20 18:00 95 H 25 H 138/42 11/10/20 17:00 95 H 25 H 115/43 11/10/20 16:01 92 H 7 L 128/51 11/10/20 16:00 92 H 92 H 88 17 11/10/20 15:40 91 H 127/54 Pulse Ox 11/11/20 12:00 11/11/20 11:49 100 11/11/20 10:01 99 11/11/20 09:48 11/11/20 09:00 100 11/11/20 08:00 100 11/11/20 07:00 100 11/11/20 06:01 100 11/11/20 06:00 11/11/20 05:01 100 11/11/20 04:00 99 11/11/20 03:25 100 11/11/20 03:00 100 11/11/20 02:25 100 11/11/20 02:00 100 11/11/20 01:45 100 11/11/20 01:01 11/11/20 00:20 100 11/11/20 00:00 100 11/10/20 23:16 100 11/10/20 23:01 100 11/10/20 23:00 99 11/10/20 22:01 11/10/20 22:00 100 11/10/20 21:00 100 11/10/20 20:04 100 11/10/20 20:00 100 11/10/20 19:00 100 11/10/20 18:00 99 11/10/20 17:00 98 11/10/20 16:01 98 11/10/20 16:00 98 11/10/20 15:40 99 - Physical Examination General: Other (patient intubated) HEENT: Positive: PERRL Neck: Positive: neck supple Cardiac: Positive: Reg Rate and Rhythm Lungs: Positive: Ventilated Respirations Neuro: Positive: Other (patient intubated ) Abdomen: Positive: Soft Skin: Negative: Rash, Suspicious Lesions, Ulceration Extremities: Present: normal. Absent: edema - Labs and Meds Cardiac Enzymes 11/11/20 Range/Units 04:35 AST 232 H (5-40) units/L CBC 11/10/20 11/11/20 Range/Units 20:21 04:35 WBC 16.0 H (4.5-11.0) K/mm3 RBC 2.83 L (3.65-5.03) M/mm3 Hgb 9.7 L 8.7 L (10.1-14.3) gm/dl Hct 28.4 L 25.8 L (30.3-42.9) % Plt Count 165 (140-440) K/mm3 Comprehensive Metabolic Panel 11/11/20 Range/Units 04:35 Sodium 136 L (137-145) mmol/L Potassium 4.5 D (3.6-5.0) mmol/L Chloride 103.9 (98-107) mmol/L Carbon Dioxide 17 L (22-30) mmol/L BUN 25 H (7-17) mg/dL Creatinine 2.5 H (0.6-1.2) mg/dL Glucose 192 H (65-100) mg/dL Calcium 7.6 L (8.4-10.2) mg/dL AST 232 H (5-40) units/L ALT 309 H (7-56) units/L Alkaline Phosphatase 92 (35-129) units/L Total Protein 5.7 L (6.3-8.2) g/dL Albumin 2.7 L (3.9-5) g/dL - Imaging and Cardiology EKG: report reviewed Echo: report reviewed - Telemetry EKG Rhythm: Sinus Rhythm - EKG Sinus rhythms and dysrhythmias: sinus rhythm - Allied health notes Allied health notes reviewed: nursing
--- NOTE | 2020-11-11 16:52 | Progress Note ---
Assessment and Plan 84-year-old female status post cardiac arrest presumed secondary to pulmonary embolism status post thrombolysis with improvement in hemodynamics on pulmonary angiography. Patient is now following commands and appears to be doing relatively well. On 2 pressors, but also on 2 medications to sedate patient. Perhaps these can be weaned off together. Hemoglobin decreased slightly. Will need to monitor. Transfuse as needed. Subjective Date of service: 11/11/20 Principal diagnosis: Ac. hypoxemic resp failure; P.E.; PNA; Cardiac arrest; TYLER; Shock Interval history: Follows commands. Moves in response to touch. On 2 pressors, but also on 2 medications to sedate patient. No oozing or bleeding. Objective - Constitutional Vitals: Vital Signs - 12hr 11/11/20 11/11/20 11/11/20 05:01 06:00 06:01 Temperature Pulse Rate 83 76 76 Respiratory 20 30 H Rate Blood Pressure 117/51 123/47 O2 Sat by Pulse 100 100 Oximetry 11/11/20 11/11/20 11/11/20 07:00 08:00 09:00 Temperature Pulse Rate 74 77 77 Respiratory 30 H 17 23 Rate Blood Pressure 130/52 134/53 144/60 O2 Sat by Pulse 100 100 100 Oximetry 11/11/20 11/11/20 11/11/20 09:48 10:01 11:00 Temperature 98.2 F Pulse Rate 91 H 80 Respiratory 15 30 H Rate Blood Pressure 142/53 118/56 O2 Sat by Pulse 99 100 Oximetry 11/11/20 11/11/20 11/11/20 11:49 12:00 13:00 Temperature 98.1 F Pulse Rate 94 H 70 Respiratory 30 H Rate Blood Pressure 104/44 124/58 122/48 O2 Sat by Pulse 100 100 100 Oximetry 11/11/20 11/11/20 11/11/20 14:01 15:00 16:00 Temperature 99.9 F H Pulse Rate 85 94 H Respiratory 30 H 20 Rate Blood Pressure 103/49 97/46 O2 Sat by Pulse 100 100 Oximetry 11/11/20 16:36 Temperature Pulse Rate 96 H Respiratory Rate Blood Pressure 104/40 O2 Sat by Pulse 100 Oximetry General appearance: Present: other (Intubated) - EENT ENT: other (Intubated) - Respiratory Respiratory effort: other (Intubated) Extremities: abnormal (No bleeding or hematomas) - Gastrointestinal General gastrointestinal: Present: soft, other (Intubated) - Psychiatric Psychiatric: cooperative, other (Intubated) - Labs CBC & Chem 7: 11/11/20 04:35 11/11/20 04:35 Labs: Abnormal lab results 11/10/20 11/10/20 11/10/20 Range/Units 11:06 17:17 18:25 WBC (4.5-11.0) K/mm3 RBC (3.65-5.03) M/mm3 Hgb (10.1-14.3) gm/dl Hct (30.3-42.9) % Heparin Anti-Xa Level (0.3-0.7) U.I./ml ABG pH 7.206 L (7.350-7.450) pH Units ABG pO2 (80.0-90.0) mm Hg ABG HCO3 18.3 L (20.0-26.0) mmol/L ABG O2 Saturation (95.0-99.0) % ABG Base Excess -9.2 L (-2.0-3.0) mmol/L ABG Hemoglobin 9.4 L (12.0-16.0) gm/dl Oxyhemoglobin 94.3 L (95.0-99.0) % Sodium (137-145) mmol/L Carbon Dioxide (22-30) mmol/L BUN (7-17) mg/dL Creatinine (0.6-1.2) mg/dL Glucose (65-100) mg/dL POC Glucose 200 H (70-105) mg/dL Lactic Acid (0.7-2.0) mmol/L Calcium (8.4-10.2) mg/dL AST (5-40) units/L ALT (7-56) units/L Total Protein (6.3-8.2) g/dL Albumin (3.9-5) g/dL Urine Creatinine 80.9 H (0.1-20.0) mg/dL Urine Chloride 38.8 L (110-250) mmolL 11/10/20 11/10/20 11/10/20 Range/Units 19:54 20:21 23:30 WBC (4.5-11.0) K/mm3 RBC (3.65-5.03) M/mm3 Hgb 9.7 L (10.1-14.3) gm/dl Hct 28.4 L (30.3-42.9) % Heparin Anti-Xa Level 0.13 L (0.3-0.7) U.I./ml ABG pH (7.350-7.450) pH Units ABG pO2 (80.0-90.0) mm Hg ABG HCO3 (20.0-26.0) mmol/L ABG O2 Saturation (95.0-99.0) % ABG Base Excess (-2.0-3.0) mmol/L ABG Hemoglobin (12.0-16.0) gm/dl Oxyhemoglobin (95.0-99.0) % Sodium (137-145) mmol/L Carbon Dioxide (22-30) mmol/L BUN (7-17) mg/dL Creatinine (0.6-1.2) mg/dL Glucose (65-100) mg/dL POC Glucose 166 H (70-105) mg/dL Lactic Acid (0.7-2.0) mmol/L Calcium (8.4-10.2) mg/dL AST (5-40) units/L ALT (7-56) units/L Total Protein (6.3-8.2) g/dL Albumin (3.9-5) g/dL Urine Creatinine (0.1-20.0) mg/dL Urine Chloride (110-250) mmolL 11/11/20 11/11/20 11/11/20 Range/Units 04:12 04:35 04:35 WBC 16.0 H (4.5-11.0) K/mm3 RBC 2.83 L (3.65-5.03) M/mm3 Hgb 8.7 L (10.1-14.3) gm/dl Hct 25.8 L (30.3-42.9) % Heparin Anti-Xa Level 0.29 L (0.3-0.7) U.I./ml ABG pH (7.350-7.450) pH Units ABG pO2 (80.0-90.0) mm Hg ABG HCO3 (20.0-26.0) mmol/L ABG O2 Saturation (95.0-99.0) % ABG Base Excess (-2.0-3.0) mmol/L ABG Hemoglobin (12.0-16.0) gm/dl Oxyhemoglobin (95.0-99.0) % Sodium 136 L (137-145) mmol/L Carbon Dioxide 17 L (22-30) mmol/L BUN 25 H (7-17) mg/dL Creatinine 2.5 H (0.6-1.2) mg/dL Glucose 192 H (65-100) mg/dL POC Glucose (70-105) mg/dL Lactic Acid (0.7-2.0) mmol/L Calcium 7.6 L (8.4-10.2) mg/dL AST 232 H (5-40) units/L ALT 309 H (7-56) units/L Total Protein 5.7 L (6.3-8.2) g/dL Albumin 2.7 L (3.9-5) g/dL Urine Creatinine (0.1-20.0) mg/dL Urine Chloride (110-250) mmolL 11/11/20 11/11/20 11/11/20 Range/Units 05:00 05:01 09:45 WBC (4.5-11.0) K/mm3 RBC (3.65-5.03) M/mm3 Hgb (10.1-14.3) gm/dl Hct (30.3-42.9) % Heparin Anti-Xa Level (0.3-0.7) U.I./ml ABG pH (7.350-7.450) pH Units ABG pO2 172.4 H (80.0-90.0) mm Hg ABG HCO3 16.7 L (20.0-26.0) mmol/L ABG O2 Saturation 99.1 H (95.0-99.0) % ABG Base Excess -7.9 L (-2.0-3.0) mmol/L ABG Hemoglobin 6.1 L (12.0-16.0) gm/dl Oxyhemoglobin (95.0-99.0) % Sodium (137-145) mmol/L Carbon Dioxide (22-30) mmol/L BUN (7-17) mg/dL Creatinine (0.6-1.2) mg/dL Glucose (65-100) mg/dL POC Glucose 191 H (70-105) mg/dL Lactic Acid 2.20 H* (0.7-2.0) mmol/L Calcium (8.4-10.2) mg/dL AST (5-40) units/L ALT (7-56) units/L Total Protein (6.3-8.2) g/dL Albumin (3.9-5) g/dL Urine Creatinine (0.1-20.0) mg/dL Urine Chloride (110-250) mmolL 11/11/20 11/11/20 Range/Units 12:34 14:40 WBC (4.5-11.0) K/mm3 RBC (3.65-5.03) M/mm3 Hgb (10.1-14.3) gm/dl Hct (30.3-42.9) % Heparin Anti-Xa Level (0.3-0.7) U.I./ml ABG pH (7.350-7.450) pH Units ABG pO2 (80.0-90.0) mm Hg ABG HCO3 (20.0-26.0) mmol/L ABG O2 Saturation (95.0-99.0) % ABG Base Excess (-2.0-3.0) mmol/L ABG Hemoglobin (12.0-16.0) gm/dl Oxyhemoglobin (95.0-99.0) % Sodium (137-145) mmol/L Carbon Dioxide (22-30) mmol/L BUN (7-17) mg/dL Creatinine (0.6-1.2) mg/dL Glucose (65-100) mg/dL POC Glucose 141 H (70-105) mg/dL Lactic Acid 2.70 H* (0.7-2.0) mmol/L Calcium (8.4-10.2) mg/dL AST (5-40) units/L ALT (7-56) units/L Total Protein (6.3-8.2) g/dL Albumin (3.9-5) g/dL Urine Creatinine (0.1-20.0) mg/dL Urine Chloride (110-250) mmolL Medications & Allergies - Medications Allergies/Adverse Reactions: Allergies No Known Allergies Allergy (Verified 11/09/20 17:19) Active Medications: Generic Name Dose Route Start Last Admin Trade Name Freq PRN Reason Stop Dose Admin Acetaminophen 650 mg 11/09/20 23:07 Acetaminophen 650 Mg Rect Supp LA Q6H PRN Pain MILD(1-3)/Fever >100.5/REYES Acetaminophen 650 mg 11/09/20 23:59 Acetaminophen 325 Mg Tab PO Q6H PRN Pain, Mild (1-3) Hydrocodone Bitart/Acetaminophen 2 each 11/09/20 23:59 Hydrocodone/Acetaminophen 5-325 Mg Tab PO Q6H PRN Pain, Moderate (4-6) Dextrose 50 ml 11/11/20 11:10 Dextrose 50% In Water (25gm) 50 Ml Syringe IV Q30MIN PRN Hypoglycemia Protocol Fentanyl 50 mcg 11/09/20 22:37 Fentanyl 100 Mcg/2 Ml Inj IV Q10MIN PRN ANALGESIA Hydralazine HCl 10 mg 11/10/20 16:49 Hydralazine 20 Mg/1 Ml Inj IV Q6H PRN Blood Pressure Hydrophilic Ointment 1 applic 11/09/20 17:08 Lip Therapy Vaseline TP Q2H PRN Dry Lips Propofol 1,000 mg in 100 mls @ 2.245 mls/hr 11/09/20 18:00 11/11/20 15:36 Diprivan 10 Mg/Ml IV 8 mcg/kg/min TITR MELONY 3.592 mls/hr Titration Protocol 5 MCG/KG/MIN NORepinephrine/NS 8 MG-250 ML 8 mg in 250 mls @ 3.75 mls/hr 11/09/20 18:00 11/11/20 15:36 Norepinephrine/Ns 8 Mg-250 Ml (Double Conc) IV 22 mcg/min TITRATE MELONY 41.25 mls/hr Titration Protocol 2 MCG/MIN Fentanyl Citrate 2,000 mcg in 100 mls @ 11.226 mls/hr 11/09/20 23:00 11/11/20 15:35 Fentanyl Drip Premix IV 2 mcg/kg/hr TITR MELONY 7.484 mls/hr Titration Protocol 3 MCG/KG/HR Ceftriaxone Sodium 2 gm in 100 mls @ 200 mls/hr 11/09/20 23:45 11/11/20 10:05 Rocephin/Ns 2 Gm/100 Ml IV 11/13/20 10:29 200 mls/hr Q24HR MELONY Administration Protocol Azithromycin 500 mg in 250 mls @ 250 mls/hr 11/09/20 23:45 11/11/20 10:10 Zithromax/Ns IV 11/13/20 10:59 250 mls/hr Q24HR MELONY Administration Protocol Heparin Sodium/Sodium Chloride 25,000 unit in 500 mls @ 24 mls/hr 11/10/20 12:00 11/11/20 06:30 Heparin/ 0.45% Nacl-25,000 Unit/500 Ml IV 1,000 units/hr TITR MELONY 20 mls/hr Titration Protocol 1,200 UNITS/HR Dobutamine HCl/Dextrose 500 mg in 250 mls @ 6.075 mls/hr 11/11/20 13:00 11/11/20 13:59 Dobutrex Drip 500mg/D5w 250ml IV 11/12/20 00:00 2.5 mcg/kg/min DIRECT MELONY 6.075 mls/hr Administration Protocol 2.5 MCG/KG/MIN Sodium Chloride 1,000 mls @ 100 mls/hr 11/11/20 15:45 Nacl 0.9% 1000 Ml IV 11/13/20 06:00 DIRECT MELONY Insulin Human Regular 0 units 11/11/20 12:00 Insulin Regular, Human 100 Units/1 Ml SUB-Q Q6H [facility] Protocol Magnesium Hydroxide 30 ml 11/09/20 23:07 Magnesium Hydroxide (Mom) Oral Liqd Udc PO Q4H PRN Constipation Multi-Ingred Cream/Lotion/Oil/Oint 1 applic 11/09/20 17:08 Mineral Oil/Petrolatum, White Ophth Oint 3.5 Gm OU Q4H PRN Dry Eye(s) Ondansetron HCl 4 mg 11/09/20 23:07 Ondansetron 4 Mg/2 Ml Inj IV Q8H PRN Nausea And Vomiting Pantoprazole Sodium 40 mg 11/11/20 22:00 Pantoprazole 40 Mg Inj IV BID MELONY Senna/Docusate Sodium 1 tab 11/09/20 22:00 11/11/20 10:10 Sennosides/Docusate Sodium 8.6/50 Mg Tab FEEDTUBE 1 tab BID MELONY Administration Sodium Chloride 10 ml 11/10/20 10:00 11/11/20 10:10 Sodium Chloride 0.9% 10 Ml Flush Syringe IV 10 ml BID MELONY Administration Sodium Chloride 10 ml 11/09/20 23:07 Sodium Chloride 0.9% 10 Ml Flush Syringe IV PRN PRN LINE FLUSH HEART Score - HEART Score Troponin: Troponin T 0.873 ng/mL (0.00-0.029) H* D 11/09/20 23:05
--- NOTE | 2020-11-11 17:02 | Progress Note ---
<NICHOLAS VARGAS - Last Filed: 11/11/20 17:13> Assessment and Plan Assessment and plan: This 84-year-old female with HTN, CKD, chronic right BBB, arthritis admitted s/P cardiac arrest, pulmonary embolism , Pneumonia and GI bleed Neuro: Acute metabolic encephalopathy -CT head completed which shows no acute intracranial abnormality, probable meningioma along the right anterior frontal lobe -Avoid delirium -Sedated with propofol and fentanyl -RASS goal 0 to -1 -Bilateral restraints for safety -Patient is awake, follows commands, positive track/focus, pupils equal round reactive Cardio: S/p cardiopulmonary arrest, atrial fibrillation, acute diastolic heart failure -Cardiology consulted, appreciate recommendations -Echo 11/10/2020-EF 50 to 55%, right ventricular systolic function is normal, right ventricle is mildly dilated, left atrium not well visualized, mild mitral regurgitation, moderate pulmonary hypertension -Vasopressor support with Levophed and dopamine -Per cardiology dopamine transition to dobutamine with IV fluids -Blood pressure monitor per protocol Respiratory: Acute hypoxic respiratory failure, acute pulmonary medicine with ac port gamble cor pulmonale -CCM consulted, appreciate recommendations -Intubated 11/09 with 7.0 at 22 at the lip -A.m. vent settings AC/PRVC rate 30, tidal volume 450, PEEP 6. 5% FiO2 -Rate reduced by CCM and repeat ABG at 2100 -See respiratory notes for titration -Serial CXR and ABGs -VAP bundle -11/11 ABG reviewed GI: Upper GI hemorrhage, elevated LFT -GI consulted, appreciate recommendations -Protonix drip till 9 PM then will be switched to Protonix IV -Recommend Protonix 40 mg IV twice daily -Patient noted to be supratherapeutic heparin drip at the time of the consult and GI recommended titrating down heparin drip -Per GI will reassess for EGD if patient develops severe GI bleeding -BR: Senokot -24-hour net balance +1605 mL -Trend LFT : Acute kidney injury,Severe metabolic acidosis -Nephrology consulted, appreciate recommendations -Likely prerenal injury in setting of acute bilateral pulmonary embolism with cor pulmonale and right-sided heart failure -Gentle IV hydration -Renal ultrasound showed no evidence of obstructive PE, bilateral echogenic kidneys -No indication for renal replacement at this time per nephrology -Urine electrolytes -Strict intake and output -Daily weights -Avoid nephrotoxic medications -Trend BMP ID: Bilateral pneumonia, SIRS, lactic acidosis -Empiric antibiotics with Rocephin and azithromycin Heme: Large bilateral segmental and subsegmental PE, thrombocytopenia, coagulopathy -Vascular surgery consulted, appreciate recommendations -S/p pulmonary angiography with placement of thrombolytic catheters -Heparin drip -Serial CBCs -Transfuse for hemoglobin less than 7 Endo: NAD -Accucheck q6 -Avoid hypoglycemia The high probability of a clinically significant, sudden or life threatening deterioration of the [multi] system(s) required my full and direct attention, intervention and personal management. The aggregate critical care time was [60] minutes. This time is in addition to time spent performing reported procedures but includes the following: [x] Data Review and interpretation [x] Patient assessment and monitoring of vital signs [x] Documentation [x] Medication orders and management Disposition Plan: icu Total Time Spent with Patient (Minutes): 60 History Interval history: This is a 84-year-old female with HTN, CKD, chronic RBBB, arthritis who presented to the emergency department on 11/09 from the department With valuation of difficulty breathing and shortness of breath. Upon arrival to the emergency department patient was actively unresponsive and positive pressure ventilation was started and subsequently had a cardiac arrest with eventual ROSC. Work-up emergency department revealed elevated D-dimer of greater than 10,000, elevated lactic acid, CTA showed bilateral segmental and subsegmental emboli with right heart strain, bibasilar airspace consolidation and trace right pleural effusion compatible with pneumonia. Vascular surgery was consulted for thrombolysis. Patient was admitted to the hospitalist service with consults to [facility], cardiology, nephrology and gastroenterology. 11/10: Patient seen and examined this morning review of her electrolytes shows some abnormalities with noted worsening renal failure in the setting of hypotension. Noted A. fib on EKG. Patient remains on EKOS system. Will obtain cardiology and nephrology evaluation. Echocardiogram to further evaluate condition of the heart in the setting of her cardiac arrest. Patient remains a PUI Covid testing is pending. Discussed with strategic accounts manager this morning may consider changing from dopamine to dobutamine but will await cardiology evaluation. Possible further hydration in the setting of underlying right heart failure. I did discuss with the family who are not aware of any renal problems in the past. Ventilator management per patrol commander. Closely monitor leukocytosis no fever noted at this time. I will replace potassium as noted hypokalemia Discussed with family the two daughters in detail 11/11: Patient is having blood-tinged secretions while suctioning, NG tube to dark secretions, gastric occult sent. PICC line ordered to be placed. Cardiology to change dopamine to dobutamine and start normal saline. No plans for hemodialysis per nephrology. Hospitalist Physical - Constitutional Vitals: Temp Pulse Resp BP Pulse Ox 99.9 F H 96 H 20 104/40 100 11/11/20 16:00 11/11/20 16:36 11/11/20 15:00 11/11/20 16:36 11/11/20 16:36 General appearance: Present: other (Intubated) - EENT Eyes: Present: PERRL, EOM intact ENT: other (bruised tongue) - Neck Neck: Present: normal ROM - Respiratory Respiratory effort: normal Respiratory: bilateral: diminished - Cardiovascular Rhythm: regular Heart Sounds: Present: S1 & S2. Absent: systolic murmur, diastolic murmur - Extremities Extremities: no ischemia, pulses intact, pulses symmetrical, No edema, normal temperature, normal color Peripheral Pulses: within normal limits - Abdominal General gastrointestinal: soft, non-tender, non-distended, normal bowel sounds - Integumentary Integumentary: Present: clear, warm, dry - Psychiatric Psychiatric: cooperative - Neurologic Neurologic: other (PERRL, (+) track/focus, follows commands) - Allied Health Allied health notes reviewed: nursing, RT HEART Score - HEART Score Troponin: Troponin T 0.873 ng/mL (0.00-0.029) H* D 11/09/20 23:05 Results - Labs CBC & Chem 7: 11/11/20 04:35 11/11/20 04:35 Labs: Laboratory Last Values WBC 16.0 K/mm3 (4.5-11.0) H 11/11/20 04:35 RBC 2.83 M/mm3 (3.65-5.03) L 11/11/20 04:35 Hgb 8.7 gm/dl (10.1-14.3) L 11/11/20 04:35 Hct 25.8 % (30.3-42.9) L 11/11/20 04:35 MCV 91 fl (79-97) 11/11/20 04:35 MCH 31 pg (28-32) 11/11/20 04:35 MCHC 34 % (30-34) 11/11/20 04:35 RDW 14.7 % (13.2-15.2) 11/11/20 04:35 Plt Count 165 K/mm3 (140-440) 11/11/20 04:35 Lymph % (Auto) 7.4 % (13.4-35.0) L 11/10/20 15:08 [place] % (Auto) 8.7 % (0.0-7.3) H 11/10/20 15:08 Eos % (Auto) 0.1 % (0.0-4.3) 11/10/20 15:08 Baso % (Auto) 0.1 % (0.0-1.8) 11/10/20 15:08 Lymph # (Auto) 1.2 K/mm3 (1.2-5.4) 11/10/20 15:08 [place] # (Auto) 1.4 K/mm3 (0.0-0.8) H 11/10/20 15:08 Eos # (Auto) 0.0 K/mm3 (0.0-0.4) 11/10/20 15:08 Baso # (Auto) 0.0 K/mm3 (0.0-0.1) 11/10/20 15:08 Add Manual Diff Complete 11/10/20 04:28 Total Counted 100 11/10/20 04:28 Seg Neutrophils % 83.7 % (40.0-70.0) H 11/10/20 15:08 Seg Neuts % (Manual) 96.0 % (40.0-70.0) H 11/10/20 04:28 Lymphocytes % (Manual) 1.0 % (13.4-35.0) L 11/10/20 04:28 Monocytes % (Manual) 3.0 % (0.0-7.3) 11/10/20 04:28 Nucleated RBC % Not Reportable 11/10/20 04:28 Seg Neutrophils # 13.5 K/mm3 (1.8-7.7) H 11/10/20 15:08 Seg Neutrophils # Man 17.0 K/mm3 (1.8-7.7) H 11/10/20 04:28 Band Neutrophils # 0.0 K/mm3 11/10/20 04:28 Lymphocytes # (Manual) 0.2 K/mm3 (1.2-5.4) L 11/10/20 04:28 Abs React Lymphs (Man) 0.0 K/mm3 11/10/20 04:28 Monocytes # (Manual) 0.5 K/mm3 (0.0-0.8) 11/10/20 04:28 Eosinophils # (Manual) 0.0 K/mm3 (0.0-0.4) 11/10/20 04:28 Basophils # (Manual) 0.0 K/mm3 (0.0-0.1) 11/10/20 04:28 Metamyelocytes # 0.0 K/mm3 11/10/20 04:28 Myelocytes # 0.0 K/mm3 11/10/20 04:28 Promyelocytes # 0.0 K/mm3 11/10/20 04:28 Blast Cells # 0.0 K/mm3 11/10/20 04:28 WBC Morphology Not Reportable 11/10/20 04:28 Hypersegmented Neuts Not Reportable 11/10/20 04:28 Hyposegmented Neuts Not Reportable 11/10/20 04:28 Hypogranular Neuts Not Reportable 11/10/20 04:28 Smudge Cells Not Reportable 11/10/20 04:28 Toxic Granulation Not Reportable 11/10/20 04:28 Toxic Vacuolation Not Reportable 11/10/20 04:28 Dohle Bodies Not Reportable 11/10/20 04:28 Pelger-Huet Anomaly Not Reportable 11/10/20 04:28 Carmen Rods Not Reportable 11/10/20 04:28 Platelet Estimate Consistent w auto 11/10/20 04:28 Clumped Platelets Not Reportable 11/10/20 04:28 Plt Clumps, EDTA Not Reportable 11/10/20 04:28 Large Platelets Not Reportable 11/10/20 04:28 Giant Platelets Not Reportable 11/10/20 04:28 Platelet Satelliting Not Reportable 11/10/20 04:28 Plt Morphology Comment Not Reportable 11/10/20 04:28 RBC Morphology Not Reportable 11/10/20 04:28 Dimorphic RBCs Not Reportable 11/10/20 04:28 Polychromasia Not Reportable 11/10/20 04:28 Hypochromasia Not Reportable 11/10/20 04:28 Poikilocytosis Not Reportable 11/10/20 04:28 Anisocytosis 1+ 11/10/20 04:28 Microcytosis Not Reportable 11/10/20 04:28 Macrocytosis Not Reportable 11/10/20 04:28 Spherocytes Not Reportable 11/10/20 04:28 Pappenheimer Bodies Not Reportable 11/10/20 04:28 Sickle Cells Not Reportable 11/10/20 04:28 Target Cells Not Reportable 11/10/20 04:28 Tear Drop Cells Not Reportable 11/10/20 04:28 Ovalocytes Not Reportable 11/10/20 04:28 Helmet Cells Not Reportable 11/10/20 04:28 Lu-Saxon Bodies Not Reportable 11/10/20 04:28 [place] Rings Not Reportable 11/10/20 04:28 [place] Cells Not Reportable 11/10/20 04:28 Bite Cells Not Reportable 11/10/20 04:28 Crenated Cell Not Reportable 11/10/20 04:28 Elliptocytes Not Reportable 11/10/20 04:28 Acanthocytes (Spur) Not Reportable 11/10/20 04:28 Rouleaux Not Reportable 11/10/20 04:28 Hemoglobin C Crystals Not Reportable 11/10/20 04:28 Schistocytes Not Reportable 11/10/20 04:28 Malaria parasites Not Reportable 11/10/20 04:28 [place] Bodies Not Reportable 11/10/20 04:28 Hem Pathologist Commnt No 11/10/20 04:28 PT 18.9 Sec. (12.2-14.9) H 11/10/20 12:30 INR 1.53 (0.87-1.13) H 11/10/20 12:30 APTT 204.8 Sec. (24.2-36.6) H* 11/10/20 12:30 Fibrinogen 299 mg/dl (211-480) 11/10/20 15:08 D-Dimer > 29812 ng/mlDDU (0-234) H 11/10/20 04:28 Heparin Anti-Xa Level 0.29 U.I./ml (0.3-0.7) L 11/11/20 04:12 ABG pH 7.371 pH Units (7.350-7.450) 11/11/20 09:45 POC ABG pCO2 43.4 mmHg (32.0-48.0) 11/10/20 05:13 ABG pCO2 29.4 mm Hg 11/11/20 09:45 POC ABG pO2 162.0 mmHg (83-108) H 11/10/20 05:13 ABG pO2 172.4 mm Hg (80.0-90.0) H 11/11/20 09:45 POC ABG HCO3 17.4 11/10/20 05:13 ABG HCO3 16.7 mmol/L (20.0-26.0) L 11/11/20 09:45 ABG O2 Saturation 99.1 % (95.0-99.0) H 11/11/20 09:45 ABG O2 Content 8.8 (0.0-44) 11/11/20 09:45 POC ABG Base Excess -9.8 11/10/20 05:13 ABG Base Excess -7.9 mmol/L (-2.0-3.0) L 11/11/20 09:45 ABG Hemoglobin 6.1 gm/dl (12.0-16.0) L 11/11/20 09:45 ABG Oxyhemoglobin 98.9 (94-98) H 11/10/20 05:13 ABG Carboxyhemoglobin 0.9 % (0.0-5.0) 11/11/20 09:45 ABG Methemoglobin 0.4 % (0.0-1.5) 11/11/20 09:45 ABG Sodium 133.6 mmol/L (136.0-145.0) L 11/10/20 05:13 ABG Potassium 3.1 mmol/L (3.40-4.50) L 11/10/20 05:13 ABG Chloride 105.0 mmol/L (98-107) 11/10/20 05:13 ABG Glucose 346 mg/dL (65-95) H 11/10/20 05:13 Oxyhemoglobin 97.8 % (95.0-99.0) 11/11/20 09:45 Carboxyhemoglobin 0.1 (0.5-1.5) L 11/10/20 05:13 FiO2 55 % 11/11/20 09:45 FiO2 % 60.0 11/10/20 05:13 Sodium 136 mmol/L (137-145) L 11/11/20 04:35 Potassium 4.5 mmol/L (3.6-5.0) D 11/11/20 04:35 Chloride 103.9 mmol/L (98-107) 11/11/20 04:35 Carbon Dioxide 17 mmol/L (22-30) L 11/11/20 04:35 Anion Gap 20 mmol/L 11/11/20 04:35 BUN 25 mg/dL (7-17) H 11/11/20 04:35 Creatinine 2.5 mg/dL (0.6-1.2) H 11/11/20 04:35 Estimated GFR 22 ml/min 11/11/20 04:35 BUN/Creatinine Ratio 10 % 11/11/20 04:35 Glucose 192 mg/dL (65-100) H 11/11/20 04:35 POC Glucose 141 mg/dL (70-105) H 11/11/20 12:34 Lactic Acid 2.70 mmol/L (0.7-2.0) H* 11/11/20 14:40 Calcium 7.6 mg/dL (8.4-10.2) L 11/11/20 04:35 Total Bilirubin 0.30 mg/dL (0.1-1.2) 11/11/20 04:35 Direct Bilirubin < 0.2 mg/dL (0-0.2) 11/09/20 17:24 Indirect Bilirubin 0.1 mg/dL 11/09/20 17:24 AST 232 units/L (5-40) H 11/11/20 04:35 ALT 309 units/L (7-56) H 11/11/20 04:35 Alkaline Phosphatase 92 units/L (35-129) 11/11/20 04:35 Lactate Dehydrogenase 1637 units/L (91-180) H 11/10/20 04:28 Total Creatine Kinase 449 units/L (30-135) H 11/09/20 23:05 CK-MB (CK-2) 18.4 ng/mL (0.0-4.0) H 11/09/20 23:05 CK-MB (CK-2) Rel Index 4.0 (0-4) 11/09/20 23:05 Troponin T 0.873 ng/mL (0.00-0.029) H* D 11/09/20 23:05 C-Reactive Protein 3.50 mg/dL (0.00-1.30) H 11/10/20 04:28 NT-Pro-B Natriuret Pep 1169 pg/mL (0-900) H 11/09/20 17:24 Total Protein 5.7 g/dL (6.3-8.2) L 11/11/20 04:35 Albumin 2.7 g/dL (3.9-5) L 11/11/20 04:35 Albumin/Globulin Ratio 0.9 % 11/11/20 04:35 Triglycerides 163 mg/dL (2-149) H 11/09/20 17:24 Cholesterol 118 mg/dL (50-199) 11/09/20 17:24 LDL Cholesterol Direct 72 mg/dL (50-130) 11/09/20 17:24 HDL Cholesterol 29 mg/dL (40-59) L 11/09/20 17:24 Cholesterol/HDL Ratio 4.06 % 11/09/20 17:24 Procalcitonin 9.69 ng/mL (<0.15) 11/10/20 04:28 Arterial Blood Glucose 346 mg/dL (65-95) H 11/10/20 05:13 Urine Color Straw (Yellow) 11/09/20 19:07 Urine Turbidity Clear (Clear) 11/09/20 19:07 Urine pH 7.0 (5.0-7.0) 11/09/20 19:07 Ur Specific [place] 1.003 (1.003-1.030) 11/09/20 19:07 Urine Protein <15 mg/dl mg/dL (Negative) 11/09/20 19:07 Urine Glucose (UA) Neg mg/dL (Negative) 11/09/20 19:07 Urine Ketones Neg mg/dL (Negative) 11/09/20 19:07 Urine Blood Mod (Negative) 11/09/20 19:07 Urine Nitrite Neg (Negative) 11/09/20 19:07 Urine Bilirubin Neg (Negative) 11/09/20 19:07 Urine Urobilinogen < 2.0 mg/dL (<2.0) 11/09/20 19:07 Ur Leukocyte Esterase Neg (Negative) 11/09/20 19:07 Urine WBC (Auto) 2.0 /HPF (0.0-6.0) 11/09/20 19:07 Urine RBC (Auto) 2.0 /HPF (0.0-6.0) 11/09/20 19:07 U Epithel Cells (Auto) 1.0 /HPF (0-13.0) 11/09/20 19:07 Urine Bacteria (Auto) 1+ /HPF (Negative) 11/09/20 19:07 Urine Creatinine 80.9 mg/dL (0.1-20.0) H 11/10/20 11:06 Urine Sodium 48 mmol/L 11/10/20 11:06 Urine Chloride 38.8 mmolL (110-250) L 11/10/20 11:06 Urine Opiates Screen Negative 11/09/20 19:07 Urine Methadone Screen Negative 11/09/20 19:07 Ur Barbiturates Screen Negative 11/09/20 19:07 Ur Phencyclidine Scrn Negative 11/09/20 19:07 Ur Amphetamines Screen Negative 11/09/20 19:07 U Benzodiazepines Scrn Negative 11/09/20 19:07 Urine Cocaine Screen Negative 11/09/20 19:07 U Marijuana (THC) Screen Negative 11/09/20 19:07 Drugs of Abuse Note Disclamer 11/09/20 19:07 Coronavirus (PCR) Negative (Negative) 11/10/20 Unknown Blood Type O POSITIVE 11/09/20 17:24 Antibody Screen Negative 11/09/20 17:24 Microbiology: Microbiology 11/09/20 23:05 Peripheral/Venous Blood Culture - Preliminary NO GROWTH AFTER 24 HOURS 11/09/20 22:59 Peripheral/Venous Blood Culture - Preliminary NO GROWTH AFTER 24 HOURS Gonsalves/IV: Voiding Method Indwelling Catheter Active Medications - Current Medications Current Medications: Generic Name Dose Route Start Last Admin Trade Name Freq PRN Reason Stop Dose Admin Acetaminophen 650 mg 11/09/20 23:07 Acetaminophen 650 Mg Rect Supp MA Q6H PRN Pain MILD(1-3)/Fever >100.5/REYES Acetaminophen 650 mg 11/09/20 23:59 Acetaminophen 325 Mg Tab PO Q6H PRN Pain, Mild (1-3) Hydrocodone Bitart/Acetaminophen 2 each 11/09/20 23:59 Hydrocodone/Acetaminophen 5-325 Mg Tab PO Q6H PRN Pain, Moderate (4-6) Dextrose 50 ml 11/11/20 11:10 Dextrose 50% In Water (25gm) 50 Ml Syringe IV Q30MIN PRN Hypoglycemia Protocol Fentanyl 50 mcg 11/09/20 22:37 Fentanyl 100 Mcg/2 Ml Inj IV Q10MIN PRN ANALGESIA Hydralazine HCl 10 mg 11/10/20 16:49 Hydralazine 20 Mg/1 Ml Inj IV Q6H PRN Blood Pressure Hydrophilic Ointment 1 applic 11/09/20 17:08 Lip Therapy Vaseline TP Q2H PRN Dry Lips Propofol 1,000 mg in 100 mls @ 2.245 mls/hr 11/09/20 18:00 11/11/20 15:36 Diprivan 10 Mg/Ml IV 8 mcg/kg/min TITR MELONY 3.592 mls/hr Titration Protocol 5 MCG/KG/MIN NORepinephrine/NS 8 MG-250 ML 8 mg in 250 mls @ 3.75 mls/hr 11/09/20 18:00 11/11/20 15:36 Norepinephrine/Ns 8 Mg-250 Ml (Double Conc) IV 22 mcg/min TITRATE MELONY 41.25 mls/hr Titration Protocol 2 MCG/MIN Fentanyl Citrate 2,000 mcg in 100 mls @ 11.226 mls/hr 11/09/20 23:00 11/11/20 15:35 Fentanyl Drip Premix IV 2 mcg/kg/hr TITR MELONY 7.484 mls/hr Titration Protocol 3 MCG/KG/HR Ceftriaxone Sodium 2 gm in 100 mls @ 200 mls/hr 11/09/20 23:45 11/11/20 10:05 Rocephin/Ns 2 Gm/100 Ml IV 11/13/20 10:29 200 mls/hr Q24HR MELONY Administration Protocol Azithromycin 500 mg in 250 mls @ 250 mls/hr 11/09/20 23:45 11/11/20 10:10 Zithromax/Ns IV 11/13/20 10:59 250 mls/hr Q24HR MELONY Administration Protocol Heparin Sodium/Sodium Chloride 25,000 unit in 500 mls @ 24 mls/hr 11/10/20 12:00 11/11/20 06:30 Heparin/ 0.45% Nacl-25,000 Unit/500 Ml IV 1,000 units/hr TITR MELONY 20 mls/hr Titration Protocol 1,200 UNITS/HR Dobutamine HCl/Dextrose 500 mg in 250 mls @ 6.075 mls/hr 11/11/20 13:00 11/11/20 13:59 Dobutrex Drip 500mg/D5w 250ml IV 11/12/20 00:00 2.5 mcg/kg/min DIRECT MELONY 6.075 mls/hr Administration Protocol 2.5 MCG/KG/MIN Sodium Chloride 1,000 mls @ 100 mls/hr 11/11/20 15:45 Nacl 0.9% 1000 Ml IV 11/13/20 06:00 DIRECT MELONY Insulin Human Regular 0 units 11/11/20 12:00 Insulin Regular, Human 100 Units/1 Ml SUB-Q Q6H MELONY Protocol Magnesium Hydroxide 30 ml 11/09/20 23:07 Magnesium Hydroxide (Mom) Oral Liqd Udc PO Q4H PRN Constipation Multi-Ingred Cream/Lotion/Oil/Oint 1 applic 11/09/20 17:08 Mineral Oil/Petrolatum, White Ophth Oint 3.5 Gm OU Q4H PRN Dry Eye(s) Ondansetron HCl 4 mg 11/09/20 23:07 Ondansetron 4 Mg/2 Ml Inj IV Q8H PRN Nausea And Vomiting Pantoprazole Sodium 40 mg 11/11/20 22:00 Pantoprazole 40 Mg Inj IV BID MELONY Senna/Docusate Sodium 1 tab 11/09/20 22:00 11/11/20 10:10 Sennosides/Docusate Sodium 8.6/50 Mg Tab FEEDTUBE 1 tab BID MELONY Administration Sodium Chloride 10 ml 11/10/20 10:00 11/11/20 10:10 Sodium Chloride 0.9% 10 Ml Flush Syringe IV 10 ml BID MELONY Administration Sodium Chloride 10 ml 11/09/20 23:07 Sodium Chloride 0.9% 10 Ml Flush Syringe IV PRN PRN LINE FLUSH Nutrition/Malnutrition Assess - Dietary Evaluation Nutrition/Malnutrition Findings: Nutrition Notes Start: 11/10/20 09:17 Freq: Status: Active Protocol: Document 11/11/20 16:39 GB (Rec: 11/11/20 16:53 GB [id number]) Nutrition Notes Initial or Follow up Reassessment Current Diagnosis CKD(stage I-IV),Hypertension Other Pertinent Diagnosis pneu, cardiopulmonary arrest, SIRS, acute diastolic heart failure Current Diet NPO, TF ordered Labs/Tests 11/11: Na 136, BUN 25, creatinine 2.5, glucose 192, Ca 7.6, AST 232, ALT 309 Pertinent Medications Azithromycin, dobutmine Hcl/D5 x 6.075ml/hr (25kcal), Fentanyl, Norepinephrine/Ns8 Mg250, Propofol at 3.592 ml/hr (95 kcal), NaCl Height 5 ft 6 in Weight 81 kg [place] Body Weight (kg) 59.09 BMI 28.8 Weight change and time frame stable at this time Weight Status Overweight Subjective/Other Information MD consult for diet education. Due to advanced age and vent status, pt not appropriate. Pt on hold in ED. 11/11 in cc1. orders for TF, vent continues. NG tube for suction at this time Percent of energy/protein needs met: 0%. NPO continues, NG for suction at this time. Burn Absent Trauma Absent GI Symptoms Other Food Allergy No Skin Integrity/Comment no complications at this time. Current % PO Other Minimum of two criteria No #1 Nutrition Diagnosis Inadequate oral intake Comments: 11/11: vent continues, TF orders entered Etiology ARF As Evidenced by Signs and Symptoms pt on vent and unable to consume PO Diagnosis Progress(for reassessment Continues documentation) Is patient on ventilator? Yes Is Patient Ambulatory and/or Out of Bed No REE-([facility]-confined to bed) 1533.288 Kcal/Kg value to use for calculation 22 Approximate Energy Requirements Using 1782 kcal/Kg Calculation Used for Recommendations Kcal/kg Additional Notes Protein: (1.2-1.5g/kg @ 81kg) 97-121g Fluid: 1 ml/kcal or per MD Nutrition Intervention Change Diet Order: Advance as able Nutrition Support: Recommend TF: Vital AF 1.2 at 50 ml/hr Kcal 1,440 Protein (gm) 90 Fluid (mL) 973 Goal #1 Diet advancement or TF start 11/11: TF orders entered Vital 1.2 AF @ 50ml/hr, flush 100ml/ 4hr Goal #2 TF at goal rate 50ml/hr and tolerated Anticipated Discharge Needs: Unable to determine at this time Follow-Up By: 11/15/20 Additional Comments f/u: TF tolerance, at goal of 50ml/hr <TIN PACHECO - Last Filed: 11/12/20 08:24> Assessment and Plan Assessment and plan: I saw and evaluated the patient. I agree with the findings and the plan of care as documented in the Nurse Practitioner's~note, with the following corrections and additions. Still with anemia, will monitor closely, otherwise clinically improving. Discussed with cardiology extensively. Hospitalist Physical - Constitutional Vitals: Temp Pulse Resp BP Pulse Ox 99 F 101 H 20 135/65 98 11/12/20 04:00 11/12/20 07:59 11/12/20 07:00 11/12/20 07:59 11/12/20 07:59 HEART Score - HEART Score Troponin: Troponin T 0.873 ng/mL (0.00-0.029) H* D 11/09/20 23:05 Results - Labs CBC & Chem 7: 11/12/20 04:26 11/12/20 04:26 Labs: Laboratory Last Values WBC 16.8 K/mm3 (4.5-11.0) H 11/12/20 04:26 RBC 2.25 M/mm3 (3.65-5.03) L 11/12/20 04:26 Hgb 6.8 gm/dl (10.1-14.3) L 11/12/20 04:26 Hct 20.5 % (30.3-42.9) L 11/12/20 04:26 MCV 91 fl (79-97) 11/12/20 04:26 MCH 30 pg (28-32) 11/12/20 04:26 MCHC 33 % (30-34) 11/12/20 04:26 RDW 14.8 % (13.2-15.2) 11/12/20 04:26 Plt Count 148 K/mm3 (140-440) 11/12/20 04:26 Lymph % (Auto) 7.4 % (13.4-35.0) L 11/10/20 15:08 [place] % (Auto) 8.7 % (0.0-7.3) H 11/10/20 15:08 Eos % (Auto) 0.1 % (0.0-4.3) 11/10/20 15:08 Baso % (Auto) 0.1 % (0.0-1.8) 11/10/20 15:08 Lymph # (Auto) 1.2 K/mm3 (1.2-5.4) 11/10/20 15:08 [place] # (Auto) 1.4 K/mm3 (0.0-0.8) H 11/10/20 15:08 Eos # (Auto) 0.0 K/mm3 (0.0-0.4) 11/10/20 15:08 Baso # (Auto) 0.0 K/mm3 (0.0-0.1) 11/10/20 15:08 Add Manual Diff Complete 11/10/20 04:28 Total Counted 100 11/10/20 04:28 Seg Neutrophils % 83.7 % (40.0-70.0) H 11/10/20 15:08 Seg Neuts % (Manual) 96.0 % (40.0-70.0) H 11/10/20 04:28 Lymphocytes % (Manual) 1.0 % (13.4-35.0) L 11/10/20 04:28 Monocytes % (Manual) 3.0 % (0.0-7.3) 11/10/20 04:28 Nucleated RBC % Not Reportable 11/10/20 04:28 Seg Neutrophils # 13.5 K/mm3 (1.8-7.7) H 11/10/20 15:08 Seg Neutrophils # Man 17.0 K/mm3 (1.8-7.7) H 11/10/20 04:28 Band Neutrophils # 0.0 K/mm3 11/10/20 04:28 Lymphocytes # (Manual) 0.2 K/mm3 (1.2-5.4) L 11/10/20 04:28 Abs React Lymphs (Man) 0.0 K/mm3 11/10/20 04:28 Monocytes # (Manual) 0.5 K/mm3 (0.0-0.8) 11/10/20 04:28 Eosinophils # (Manual) 0.0 K/mm3 (0.0-0.4) 11/10/20 04:28 Basophils # (Manual) 0.0 K/mm3 (0.0-0.1) 11/10/20 04:28 Metamyelocytes # 0.0 K/mm3 11/10/20 04:28 Myelocytes # 0.0 K/mm3 11/10/20 04:28 Promyelocytes # 0.0 K/mm3 11/10/20 04:28 Blast Cells # 0.0 K/mm3 11/10/20 04:28 WBC Morphology Not Reportable 11/10/20 04:28 Hypersegmented Neuts Not Reportable 11/10/20 04:28 Hyposegmented Neuts Not Reportable 11/10/20 04:28 Hypogranular Neuts Not Reportable 11/10/20 04:28 Smudge Cells Not Reportable 11/10/20 04:28 Toxic Granulation Not Reportable 11/10/20 04:28 Toxic Vacuolation Not Reportable 11/10/20 04:28 Dohle Bodies Not Reportable 11/10/20 04:28 Pelger-Huet Anomaly Not Reportable 11/10/20 04:28 Carmen Rods Not Reportable 11/10/20 04:28 Platelet Estimate Consistent w auto 11/10/20 04:28 Clumped Platelets Not Reportable 11/10/20 04:28 Plt Clumps, EDTA Not Reportable 11/10/20 04:28 Large Platelets Not Reportable 11/10/20 04:28 Giant Platelets Not Reportable 11/10/20 04:28 Platelet Satelliting Not Reportable 11/10/20 04:28 Plt Morphology Comment Not Reportable 11/10/20 04:28 RBC Morphology Not Reportable 11/10/20 04:28 Dimorphic RBCs Not Reportable 11/10/20 04:28 Polychromasia Not Reportable 11/10/20 04:28 Hypochromasia Not Reportable 11/10/20 04:28 Poikilocytosis Not Reportable 11/10/20 04:28 Anisocytosis 1+ 11/10/20 04:28 Microcytosis Not Reportable 11/10/20 04:28 Macrocytosis Not Reportable 11/10/20 04:28 Spherocytes Not Reportable 11/10/20 04:28 Pappenheimer Bodies Not Reportable 11/10/20 04:28 Sickle Cells Not Reportable 11/10/20 04:28 Target Cells Not Reportable 11/10/20 04:28 Tear Drop Cells Not Reportable 11/10/20 04:28 Ovalocytes Not Reportable 11/10/20 04:28 Helmet Cells Not Reportable 11/10/20 04:28 Lu-Saxon Bodies Not Reportable 11/10/20 04:28 Harrison Rings Not Reportable 11/10/20 04:28 Randall Cells Not Reportable 11/10/20 04:28 Bite Cells Not Reportable 11/10/20 04:28 Crenated Cell Not Reportable 11/10/20 04:28 Elliptocytes Not Reportable 11/10/20 04:28 Acanthocytes (Spur) Not Reportable 11/10/20 04:28 Rouleaux Not Reportable 11/10/20 04:28 Hemoglobin C Crystals Not Reportable 11/10/20 04:28 Schistocytes Not Reportable 11/10/20 04:28 Malaria parasites Not Reportable 11/10/20 04:28 Vernon Bodies Not Reportable 11/10/20 04:28 Hem Pathologist Commnt No 11/10/20 04:28 PT 17.6 Sec. (12.2-14.9) H 11/12/20 04:26 INR 1.40 (0.87-1.13) H 11/12/20 04:26 APTT 162.1 Sec. (24.2-36.6) H* 11/12/20 04:26 Fibrinogen 299 mg/dl (211-480) 11/10/20 15:08 D-Dimer > 55723 ng/mlDDU (0-234) H 11/10/20 04:28 Heparin Anti-Xa Level 0.29 U.I./ml (0.3-0.7) L 11/11/20 04:12 ABG pH 7.287 (7.320-7.450) L 11/11/20 21:00 POC ABG pCO2 38.0 mmHg (32.0-48.0) 11/11/20 21:00 ABG pCO2 29.4 mm Hg 11/11/20 09:45 POC ABG pO2 105.7 mmHg (83-108) 11/11/20 21:00 ABG pO2 172.4 mm Hg (80.0-90.0) H 11/11/20 09:45 POC ABG HCO3 2.3 11/11/20 21:00 ABG HCO3 16.7 mmol/L (20.0-26.0) L 11/11/20 09:45 ABG O2 Saturation 97.4 (0-100) 11/11/20 21:00 ABG O2 Content 8.8 (0.0-44) 11/11/20 09:45 POC ABG Base Excess -8.2 11/11/20 21:00 ABG Base Excess -7.9 mmol/L (-2.0-3.0) L 11/11/20 09:45 ABG Hemoglobin 7.5 (12.0-17.5) L 11/11/20 21:00 ABG Oxyhemoglobin 96.4 (94-98) 11/11/20 21:00 ABG Carboxyhemoglobin 0.9 % (0.0-5.0) 11/11/20 09:45 ABG Methemoglobin 0.3 (0.0-1.5) 11/11/20 21:00 ABG Sodium 134.1 mmol/L (136.0-145.0) L 11/11/20 21:00 ABG Potassium 4.0 mmol/L (3.40-4.50) 11/11/20 21:00 ABG Chloride 110.0 mmol/L (98-107) H 11/11/20 21:00 ABG Glucose 141 mg/dL (65-95) H 11/11/20 21:00 Oxyhemoglobin 97.8 % (95.0-99.0) 11/11/20 09:45 Carboxyhemoglobin 0.7 (0.5-1.5) 11/11/20 21:00 FiO2 55 % 11/11/20 09:45 FiO2 % 40.0 11/11/20 21:00 Sodium 140 mmol/L (137-145) 11/12/20 04:26 Potassium 4.1 mmol/L (3.6-5.0) 11/12/20 04:26 Chloride 110.1 mmol/L (98-107) H 11/12/20 04:26 Carbon Dioxide 18 mmol/L (22-30) L 11/12/20 04:26 Anion Gap 16 mmol/L 11/12/20 04:26 BUN 25 mg/dL (7-17) H 11/12/20 04:26 Creatinine 2.4 mg/dL (0.6-1.2) H 11/12/20 04:26 Estimated GFR 23 ml/min 11/12/20 04:26 BUN/Creatinine Ratio 10 % 11/12/20 04:26 Glucose 146 mg/dL (65-100) H 11/12/20 04:26 POC Glucose 134 mg/dL (70-105) H 11/12/20 06:01 Lactic Acid 1.20 mmol/L (0.7-2.0) 11/11/20 23:20 Calcium 7.4 mg/dL (8.4-10.2) L 11/12/20 04:26 Total Bilirubin 0.30 mg/dL (0.1-1.2) 11/11/20 04:35 Direct Bilirubin < 0.2 mg/dL (0-0.2) 11/09/20 17:24 Indirect Bilirubin 0.1 mg/dL 11/09/20 17:24 AST 232 units/L (5-40) H 11/11/20 04:35 ALT 309 units/L (7-56) H 11/11/20 04:35 Alkaline Phosphatase 92 units/L (35-129) 11/11/20 04:35 Lactate Dehydrogenase 1637 units/L (91-180) H 11/10/20 04:28 Total Creatine Kinase 449 units/L (30-135) H 11/09/20 23:05 CK-MB (CK-2) 18.4 ng/mL (0.0-4.0) H 11/09/20 23:05 CK-MB (CK-2) Rel Index 4.0 (0-4) 11/09/20 23:05 Troponin T 0.873 ng/mL (0.00-0.029) H* D 11/09/20 23:05 C-Reactive Protein 3.50 mg/dL (0.00-1.30) H 11/10/20 04:28 NT-Pro-B Natriuret Pep 1169 pg/mL (0-900) H 11/09/20 17:24 Total Protein 5.7 g/dL (6.3-8.2) L 11/11/20 04:35 Albumin 2.7 g/dL (3.9-5) L 11/11/20 04:35 Albumin/Globulin Ratio 0.9 % 11/11/20 04:35 Triglycerides 163 mg/dL (2-149) H 11/09/20 17:24 Cholesterol 118 mg/dL (50-199) 11/09/20 17:24 LDL Cholesterol Direct 72 mg/dL (50-130) 11/09/20 17:24 HDL Cholesterol 29 mg/dL (40-59) L 11/09/20 17:24 Cholesterol/HDL Ratio 4.06 % 11/09/20 17:24 Procalcitonin 9.69 ng/mL (<0.15) 11/10/20 04:28 Arterial Blood Glucose 141 mg/dL (65-95) H 11/11/20 21:00 Arterial Blood Ionized Calcium 4.2 mg/dL (4.6-5.3) L 11/11/20 21:00 Urine Color Straw (Yellow) 11/09/20 19:07 Urine Turbidity Clear (Clear) 11/09/20 19:07 Urine pH 7.0 (5.0-7.0) 11/09/20 19:07 Ur Specific [place] 1.003 (1.003-1.030) 11/09/20 19:07 Urine Protein <15 mg/dl mg/dL (Negative) 11/09/20 19:07 Urine Glucose (UA) Neg mg/dL (Negative) 11/09/20 19:07 Urine Ketones Neg mg/dL (Negative) 11/09/20 19:07 Urine Blood Mod (Negative) 11/09/20 19:07 Urine Nitrite Neg (Negative) 11/09/20 19:07 Urine Bilirubin Neg (Negative) 11/09/20 19:07 Urine Urobilinogen < 2.0 mg/dL (<2.0) 11/09/20 19:07 Ur Leukocyte Esterase Neg (Negative) 11/09/20 19:07 Urine WBC (Auto) 2.0 /HPF (0.0-6.0) 11/09/20 19:07 Urine RBC (Auto) 2.0 /HPF (0.0-6.0) 11/09/20 19:07 U Epithel Cells (Auto) 1.0 /HPF (0-13.0) 11/09/20 19:07 Urine Bacteria (Auto) 1+ /HPF (Negative) 11/09/20 19:07 Urine Creatinine 80.9 mg/dL (0.1-20.0) H 11/10/20 11:06 Urine Sodium 48 mmol/L 11/10/20 11:06 Urine Chloride 38.8 mmolL (110-250) L 11/10/20 11:06 Urine Opiates Screen Negative 11/09/20 19:07 Urine Methadone Screen Negative 11/09/20 19:07 Ur Barbiturates Screen Negative 11/09/20 19:07 Ur Phencyclidine Scrn Negative 11/09/20 19:07 Ur Amphetamines Screen Negative 11/09/20 19:07 U Benzodiazepines Scrn Negative 11/09/20 19:07 Urine Cocaine Screen Negative 11/09/20 19:07 U Marijuana (THC) Screen Negative 11/09/20 19:07 Drugs of Abuse Note Disclamer 11/09/20 19:07 Coronavirus (PCR) Negative (Negative) 11/10/20 Unknown Blood Type O POSITIVE 11/09/20 17:24 Antibody Screen Negative 11/09/20 17:24 Microbiology: Microbiology 11/09/20 23:05 Peripheral/Venous Blood Culture - Preliminary NO GROWTH AFTER 48 HOURS 11/09/20 22:59 Peripheral/Venous Blood Culture - Preliminary NO GROWTH AFTER 48 HOURS 11/11/20 Unknown Gatric Aspirate Gastric Occult Blood - Final Gonsalves/IV: Voiding Method Indwelling Catheter Active Medications - Current Medications Current Medications: Generic Name Dose Route Start Last Admin Trade Name Freq PRN Reason Stop Dose Admin Acetaminophen 650 mg 11/09/20 23:07 Acetaminophen 650 Mg Rect Supp MA Q6H PRN Pain MILD(1-3)/Fever >100.5/REYES Acetaminophen 650 mg 11/09/20 23:59 Acetaminophen 325 Mg Tab PO Q6H PRN Pain, Mild (1-3) Hydrocodone Bitart/Acetaminophen 2 each 11/09/20 23:59 Hydrocodone/Acetaminophen 5-325 Mg Tab PO Q6H PRN Pain, Moderate (4-6) Lipase/Protease/Amylase 1 each 11/11/20 17:17 Lipase 10,500/Protease 25,000/Amylase 43,750 (Units) Dr Dacosta FEEDTUBE PRN PRN For Clogged Feeding Tube Dextrose 50 ml 11/11/20 11:10 Dextrose 50% In Water (25gm) 50 Ml Syringe IV Q30MIN PRN Hypoglycemia Protocol Fentanyl 50 mcg 11/09/20 22:37 Fentanyl 100 Mcg/2 Ml Inj IV Q10MIN PRN ANALGESIA Hydralazine HCl 10 mg 11/10/20 16:49 Hydralazine 20 Mg/1 Ml Inj IV Q6H PRN Blood Pressure Hydrophilic Ointment 1 applic 11/09/20 17:08 Lip Therapy Vaseline TP Q2H PRN Dry Lips Propofol 1,000 mg in 100 mls @ 2.245 mls/hr 11/09/20 18:00 11/11/20 18:35 Diprivan 10 Mg/Ml IV 6 mcg/kg/min TITR MELONY 2.694 mls/hr Administration Protocol 5 MCG/KG/MIN NORepinephrine/NS 8 MG-250 ML 8 mg in 250 mls @ 3.75 mls/hr 11/09/20 18:00 11/12/20 06:12 Norepinephrine/Ns 8 Mg-250 Ml (Double Conc) IV 24 mcg/min TITRATE MELONY 45 mls/hr Administration Protocol 2 MCG/MIN Fentanyl Citrate 2,000 mcg in 100 mls @ 11.226 mls/hr 11/09/20 23:00 11/11/20 18:37 Fentanyl Drip Premix IV 1 mcg/kg/hr TITR MELONY 3.742 mls/hr Administration Protocol 3 MCG/KG/HR Ceftriaxone Sodium 2 gm in 100 mls @ 200 mls/hr 11/09/20 23:45 11/11/20 10:05 Rocephin/Ns 2 Gm/100 Ml IV 11/13/20 10:29 200 mls/hr Q24HR MELONY Administration Protocol Azithromycin 500 mg in 250 mls @ 250 mls/hr 11/09/20 23:45 11/11/20 10:10 Zithromax/Ns IV 11/13/20 10:59 250 mls/hr Q24HR MELONY Administration Protocol Heparin Sodium/Sodium Chloride 25,000 unit in 500 mls @ 24 mls/hr 11/10/20 12:00 11/11/20 21:13 Heparin/ 0.45% Nacl-25,000 Unit/500 Ml IV 1,000 units/hr TITR MELONY 20 mls/hr Administration Protocol 1,200 UNITS/HR Sodium Chloride 1,000 mls @ 100 mls/hr 11/11/20 15:45 11/12/20 01:26 Nacl 0.9% 1000 Ml IV 11/13/20 06:00 100 mls/hr DIRECT MELONY Administration Insulin Human Regular 0 units 11/11/20 12:00 11/12/20 06:10 Insulin Regular, Human 100 Units/1 Ml SUB-Q Not Given Q6H MELONY Protocol Magnesium Hydroxide 30 ml 11/09/20 23:07 Magnesium Hydroxide (Mom) Oral Liqd Udc PO Q4H PRN Constipation Multi-Ingred Cream/Lotion/Oil/Oint 1 applic 11/09/20 17:08 Mineral Oil/Petrolatum, White Ophth Oint 3.5 Gm OU Q4H PRN Dry Eye(s) Ondansetron HCl 4 mg 11/09/20 23:07 Ondansetron 4 Mg/2 Ml Inj IV Q8H PRN Nausea And Vomiting Pantoprazole Sodium 40 mg 11/11/20 22:00 11/11/20 21:14 Pantoprazole 40 Mg Inj IV 40 mg BID MELONY Administration Senna/Docusate Sodium 1 tab 11/09/20 22:00 11/11/20 21:21 Sennosides/Docusate Sodium 8.6/50 Mg Tab FEEDTUBE Not Given BID MELONY Simple Syrup 15 ml 11/11/20 17:17 Simple Syrup 15 Ml FEEDTUBE PRN PRN Hypoglycemia Simple Syrup 30 ml 11/11/20 17:17 Simple Syrup 15 Ml FEEDTUBE PRN PRN Hypoglycemia Sodium Bicarbonate 325 mg 11/11/20 17:17 Sodium Bicarbonate 325 Mg Tab FEEDTUBE PRN PRN For Clogged Feeding Tube Sodium Chloride 10 ml 11/10/20 10:00 11/11/20 21:14 Sodium Chloride 0.9% 10 Ml Flush Syringe IV 10 ml BID MELONY Administration Sodium Chloride 10 ml 11/09/20 23:07 Sodium Chloride 0.9% 10 Ml Flush Syringe IV PRN PRN LINE FLUSH Nutrition/Malnutrition Assess - Dietary Evaluation Nutrition/Malnutrition Findings: Nutrition Notes Start: 11/10/20 09:17 Freq: Status: Active Protocol: Document 11/11/20 16:39 GB (Rec: 11/11/20 16:53 GB [id number]) Nutrition Notes Initial or Follow up Reassessment Current Diagnosis CKD(stage I-IV),Hypertension Other Pertinent Diagnosis pneu, cardiopulmonary arrest, SIRS, acute diastolic heart failure Current Diet NPO, TF ordered Labs/Tests 11/11: Na 136, BUN 25, creatinine 2.5, glucose 192, Ca 7.6, AST 232, ALT 309 Pertinent Medications Azithromycin, dobutmine Hcl/D5 x 6.075ml/hr (25kcal), Fentanyl, Norepinephrine/Ns8 Mg250, Propofol at 3.592 ml/hr (95 kcal), NaCl Height 5 ft 6 in Weight 81 kg [place] Body Weight (kg) 59.09 BMI 28.8 Weight change and time frame stable at this time Weight Status Overweight Subjective/Other Information MD consult for diet education. Due to advanced age and vent status, pt not appropriate. Pt on hold in ED. 11/11 in cc1. orders for TF, vent continues. NG tube for suction at this time Percent of energy/protein needs met: 0%. NPO continues, NG for suction at this time. Burn Absent Trauma Absent GI Symptoms Other Food Allergy No Skin Integrity/Comment no complications at this time. Current % PO Other Minimum of two criteria No #1 Nutrition Diagnosis Inadequate oral intake Comments: 11/11: vent continues, TF orders entered Etiology ARF As Evidenced by Signs and Symptoms pt on vent and unable to consume PO Diagnosis Progress(for reassessment Continues documentation) Is patient on ventilator? Yes Is Patient Ambulatory and/or Out of Bed No REE-([facility]-confined to bed) 1533.288 Kcal/Kg value to use for calculation 22 Approximate Energy Requirements Using 1782 kcal/Kg Calculation Used for Recommendations Kcal/kg Additional Notes Protein: (1.2-1.5g/kg @ 81kg) 97-121g Fluid: 1 ml/kcal or per MD Nutrition Intervention Change Diet Order: Advance as able Nutrition Support: Recommend TF: Vital AF 1.2 at 50 ml/hr Kcal 1,440 Protein (gm) 90 Fluid (mL) 973 Goal #1 Diet advancement or TF start 11/11: TF orders entered Vital 1.2 AF @ 50ml/hr, flush 100ml/ 4hr Goal #2 TF at goal rate 50ml/hr and tolerated Anticipated Discharge Needs: Unable to determine at this time Follow-Up By: 11/15/20 Additional Comments f/u: TF tolerance, at goal of 50ml/hr
[2020-11-11] MEDS ORDERED: LIPASE 10,500/PROTEASE 25,000/AMYLASE 43,750 (UNITS) DR CAP FEEDTUBE PRN (17:17)
[2020-11-11] MEDS ORDERED: SODIUM BICARBONATE 325 MG TAB FEEDTUBE PRN (17:17)
[2020-11-11] MEDS ORDERED: SIMPLE SYRUP 15 ML FEEDTUBE PRN ×2 (17:17)
[2020-11-11] MEDS: INSULIN REGULAR, HUMAN 100 UNITS/1 ML SUB-Q SCH ×2 (18:04→18:38)
[2020-11-11] MEDS: fentaNYL DRIP Premix 2,000 MCG/100 ML BAG IV SCH (18:37)
[2020-11-11] MEDS: HEPARIN/ 0.45% NACL DRIP 25,000 UNIT/500 ML BAG IV SCH (21:13)
[2020-11-11] MEDS: PANTOPRAZOLE 40 MG INJ IV SCH (21:14)
[2020-11-11 23:51] LABS: Hematocrit 20.9 % (30.3-42.9); Hemoglobin 7.1 gm/dl (10.1-14.3)
[2020-11-12] MEDS: NORepinephrine/NS 8 MG-250 ML 8 MG/250 ML INFUS..BTL IV SCH ×3 (01:25→21:36)
[2020-11-12] MEDS: SODIUM CHLORIDE 0.9% 1000 ML 1,000 ML IV SCH (01:26)
[2020-11-12] MEDS: INSULIN REGULAR, HUMAN 100 UNITS/1 ML SUB-Q SCH ×4 (01:28→18:46)
--- NOTE | 2020-11-12 03:03 | XRay Report ---
CHEST 1 VIEW INDICATION / CLINICAL INFORMATION: follow up respiratory failure. FINDINGS: SUPPORT DEVICES: No significant change in position. HEART / MEDIASTINUM: The cardiomediastinal silhouette has not significantly changed in the interim. LUNGS / PLEURA: Worsening airspace disease within both lower lungs when compared to yesterday's exam. Signer Name: Leobardo Holloway MD Signed: 11/12/2020 2:58 AM Workstation Name: [id number]
[2020-11-12 05:31] LABS: Hematocrit 20.5 % (30.3-42.9); Hemoglobin 6.8 gm/dl (10.1-14.3); Mean Corpuscular HGB Conc 33 % (30-34); Mean Corpuscular Volume 91 fl (79-97); Platelet Count 148 K/mm3 (140-440); Red Blood Count 2.25 M/mm3 (3.65-5.03); Red Cell Distribution Width 14.8 % (13.2-15.2)
[2020-11-12 05:36] LABS: INR 1.4 (0.87-1.13)
[2020-11-12 05:55] LABS: Calcium 7.4 mg/dL (8.4-10.2)
[2020-11-12 06:08] LABS: Partial Thromboplastin Time 162.1 Sec. (24.2-36.6)
--- NOTE | 2020-11-12 07:19 | Ultrasound Report ---
Renal bilateral INDICATION: Acute renal failure FINDINGS: Both kidneys measure 11 cm in length. No hydronephrosis. Both kidneys demonstrate slight in creased echogenicity of the cortex. Small 7 mm cyst within the left kidney is too small to accurately characterize. The urinary bladder is collapsed by Gonsalves catheter IMPRESSION: No evidence of hydronephrosis or other acute findings. Slight increased renal cortical ec hogenicity can be seen with medical renal disease. Signer Name: Leobardo Holloway MD Signed: 11/12/2020 7:15 AM Workstation Name: [id number]
--- NOTE | 2020-11-12 08:10 | Gastroenterology Progress Note ---
Assessment and Plan Of note patient's antiXa is now in therapeutic range though the repeat PTT was supratherapeutic Nurse confirms no melena over the last day Regarding the source of the bleed she did of note first have blood from the mouth, then have blood coming from her nares as well as the OG tube and she had not been having retching or vomiting and had not been bucking her vent. Therefore, the blood in the nostrils is less likely to be coming from a gastroesophageal source and rather is more likely to be a primary nasopharyngeal source and therefore likely bled from multiple locations from the initial supratherapeutic PTT Given the above, it is still unlikely that an endoscopy will be beneficial and would carry significant risks at this juncture and would require holding her blood thinner for at least 6 hours if not days if I end up needing to perform an intervention. Therefore, I recommend continue Protonix 40 mg IV twice daily and continue close monitoring and continue to avoid supertherapeutic heparin levels and monitor hgb as that should contain the GI bleed, and once she is medically improved she should undergo non-emergent EGD. If she does develop severe GI bleeding then the benefits of endoscopy will increase and I will reassess for EGD. Regarding elevated liver enzymes suspect due to her severe illness. To be thorough will check hepatitis viral serologies I will continue to follow closely with you - Patient Problems (1) Upper GI hemorrhage Current Visit: Yes Status: Acute (2) Atrial fibrillation Current Visit: Yes Status: Acute Qualifiers: Atrial fibrillation type: persistent (not longstanding) Qualified Code(s): I48.19 - Other persistent atrial fibrillation; I48.1 - Persistent atrial fibrillation (3) Cardiopulmonary arrest Current Visit: Yes Status: Acute (4) Transaminitis Current Visit: Yes Status: Acute Subjective Date of service: 11/12/20 Principal diagnosis: Ac. hypoxemic resp failure; P.E.; PNA; Cardiac arrest; TYLER; Shock Interval history: Patient with declining hemoglobin, though most recent is similar to last CBC Patient again had no melena when I spoke with the nurse this am She remains intubated Objective - Constitutional Vitals: Temp Pulse Resp BP Pulse Ox 99 F 89 20 91/40 98 11/12/20 04:00 11/12/20 07:00 11/12/20 07:00 11/12/20 07:00 11/12/20 06:00 General appearance: other (intubated) - EENT ENT: other (no significant blood at nares or around mouth today) - Respiratory Respiratory effort: other (intubated) - Gastrointestinal General gastrointestinal: Present: soft - Labs CBC & Chem 7: 11/12/20 04:26 11/12/20 04:26 Labs: Laboratory Results - last 24 hr 11/11/20 11/11/20 11/11/20 09:45 12:34 14:40 WBC RBC Hgb Hct MCV MCH MCHC RDW Plt Count PT INR APTT ABG pH 7.371 POC ABG pCO2 ABG pCO2 29.4 POC ABG pO2 ABG pO2 172.4 H POC ABG HCO3 ABG HCO3 16.7 L ABG O2 Saturation 99.1 H ABG O2 Content 8.8 POC ABG Base Excess ABG Base Excess -7.9 L ABG Hemoglobin 6.1 L ABG Oxyhemoglobin ABG Carboxyhemoglobin 0.9 ABG Methemoglobin 0.4 ABG Sodium ABG Potassium ABG Chloride ABG Glucose Oxyhemoglobin 97.8 Carboxyhemoglobin FiO2 55 FiO2 % Sodium Potassium Chloride Carbon Dioxide Anion Gap BUN Creatinine Estimated GFR BUN/Creatinine Ratio Glucose POC Glucose 141 H Lactic Acid 2.70 H* Calcium Arterial Blood Glucose Arterial Blood Ionized Calcium 11/11/20 11/11/20 11/11/20 17:06 21:00 23:20 WBC RBC Hgb 7.1 L Hct 20.9 L MCV MCH MCHC RDW Plt Count PT INR APTT ABG pH 7.287 L POC ABG pCO2 38.0 ABG pCO2 POC ABG pO2 105.7 ABG pO2 POC ABG HCO3 2.3 ABG HCO3 ABG O2 Saturation 97.4 ABG O2 Content POC ABG Base Excess -8.2 ABG Base Excess ABG Hemoglobin 7.5 L ABG Oxyhemoglobin 96.4 ABG Carboxyhemoglobin ABG Methemoglobin 0.3 ABG Sodium 134.1 L ABG Potassium 4.0 ABG Chloride 110.0 H ABG Glucose 141 H Oxyhemoglobin Carboxyhemoglobin 0.7 FiO2 FiO2 % 40.0 Sodium Potassium Chloride Carbon Dioxide Anion Gap BUN Creatinine Estimated GFR BUN/Creatinine Ratio Glucose POC Glucose 157 H Lactic Acid Calcium Arterial Blood Glucose 141 H Arterial Blood Ionized Calcium 4.2 L 11/11/20 11/11/20 11/12/20 23:20 23:30 04:26 WBC 16.8 H RBC 2.25 L Hgb 6.8 L Hct 20.5 L MCV 91 MCH 30 MCHC 33 RDW 14.8 Plt Count 148 PT INR APTT ABG pH POC ABG pCO2 ABG pCO2 POC ABG pO2 ABG pO2 POC ABG HCO3 ABG HCO3 ABG O2 Saturation ABG O2 Content POC ABG Base Excess ABG Base Excess ABG Hemoglobin ABG Oxyhemoglobin ABG Carboxyhemoglobin ABG Methemoglobin ABG Sodium ABG Potassium ABG Chloride ABG Glucose Oxyhemoglobin Carboxyhemoglobin FiO2 FiO2 % Sodium Potassium Chloride Carbon Dioxide Anion Gap BUN Creatinine Estimated GFR BUN/Creatinine Ratio Glucose POC Glucose 127 H Lactic Acid 1.20 Calcium Arterial Blood Glucose Arterial Blood Ionized Calcium 11/12/20 11/12/20 11/12/20 04:26 04:26 06:01 WBC RBC Hgb Hct MCV MCH MCHC RDW Plt Count PT 17.6 H INR 1.40 H APTT 162.1 H* ABG pH POC ABG pCO2 ABG pCO2 POC ABG pO2 ABG pO2 POC ABG HCO3 ABG HCO3 ABG O2 Saturation ABG O2 Content POC ABG Base Excess ABG Base Excess ABG Hemoglobin ABG Oxyhemoglobin ABG Carboxyhemoglobin ABG Methemoglobin ABG Sodium ABG Potassium ABG Chloride ABG Glucose Oxyhemoglobin Carboxyhemoglobin FiO2 FiO2 % Sodium 140 Potassium 4.1 Chloride 110.1 H Carbon Dioxide 18 L Anion Gap 16 BUN 25 H Creatinine 2.4 H Estimated GFR 23 BUN/Creatinine Ratio 10 Glucose 146 H POC Glucose 134 H Lactic Acid Calcium 7.4 L Arterial Blood Glucose Arterial Blood Ionized Calcium
[2020-11-12] MEDS ORDERED: SODIUM CHLORIDE 0.9% 500 ML 500 ML IV NR (09:06)
--- NOTE | 2020-11-12 09:27 | Consultation ---
History of Present Illness Consult date: 11/12/20 Reason for Consult: Post cardiac arrest 11/09/2020 History of present illness: Difficulty Breathing History of present illness: 84-year-old female with known history of hypertension, chronic kidney disease, chronic right bundle branch block and arthritis was brought into the emergency room today via EMS from a [facility] office for evaluation of difficulty breathing and shortness of breath. Upon arrival of the patient's to the emergency room patient was said to be unresponsive and a positive pressure venti lation was started. Patient became pulseless and a CODE BLUE was initiated. She received multiple rounds of epinephrine, calcium chloride and sodium bicarb. There was return of spontaneous circulation. Blood glucose was said to be 158. Most of the history was gotten from the ER staff as patient is already intubated and sedated. Work-up in the emergency room today reveals D-dimer of greater than 10,000, elevated lactic acid. CT angiogram shows bilateral segmental and subsegmental emboli with right heart strain. There is also bibasilar airspace consolidation and trace right pleural effusion compatible with pneumonia. Vascular surgeon Dr. Delong was consulted by the ER physician and plan was to have patient transferred to the [facility] for possible thrombolytics. today neurology consulted due to change in mentation propofol and fentanyl stopped pt. started waking up and respond to command she is intubated and is in pain Past History Past Medical History: arthritis, hypertension, renal failure, other (Chronic Right Bundle Branch Block) Past Surgical History: No surgical history Social history: no significant social history Medications and Allergies Allergies Allergy/AdvReac Type Severity Reaction Status Date / Time No Known Allergies Allergy Verified 11/09/20 17:19 Active Meds: Active Medications Acetaminophen (Acetaminophen 650 Mg Rect Supp) 650 mg NV Q6H PRN PRN Reason: Pain MILD(1-3)/Fever >100.5/REYES Famotidine (Famotidine 20 Mg/2 Ml Inj) 20 mg IV BID MELONY Last Admin: 11/09/20 22:47 Dose: 20 mg Documented by: Fentanyl (Fentanyl 100 Mcg/2 Ml Inj) 50 mcg IV Q10MIN PRN PRN Reason: ANALGESIA Hydrophilic Ointment (Lip Therapy Vaseline) 1 applic TP Q2H PRN PRN Reason: Dry Lips Propofol (Diprivan 10 Mg/Ml) 1,000 mg in 100 mls @ 2.245 mls/hr IV TITR MELONY; Protocol Last Admin: 11/09/20 20:06 Dose: 20 mcg/kg/min, 8.981 mls/hr Documented by: NORepinephrine/NS 8 MG-250 ML (Norepinephrine/Ns 8 Mg-250 Ml (Double Conc)) 8 mg in 250 mls @ 3.75 mls/hr IV TITRATE MELONY; Protocol Dopamine HCl/Dextrose (Intropin Drip 800 Mg/D5w 250 Ml) 800 mg in 250 mls @ 2.807 mls/hr IV TITR ONE; Protocol Stop: 11/13/20 10:51 Last Admin: 11/09/20 22:12 Dose: 2 mcg/kg/min, 2.807 mls/hr Documented by: Heparin Sodium/Sodium Chloride (Heparin/ 0.45% Nacl-25,000 Unit/500 Ml) 25,000 unit in 500 mls @ 21 mls/hr IV TITR MELONY; Protocol Last Admin: 11/09/20 23:06 Dose: 1,050 units/hr, 21 mls/hr Documented by: Fentanyl Citrate (Fentanyl Drip Premix) 2,000 mcg in 100 mls @ 11.226 mls/hr IV TITR MELONY; Protocol Last Admin: 11/09/20 23:08 Dose: 3 mcg/kg/hr, 11.226 mls/hr Documented by: Sodium Chloride (Nacl 0.9% 1000 Ml) 1,000 mls @ 75 mls/hr IV DIRECT MELONY Ceftriaxone Sodium (Rocephin/Ns 2 Gm/100 Ml) 2 gm in 100 mls @ 200 mls/hr IV Q24H MELONY; Protocol Azithromycin (Zithromax/Ns) 500 mg in 250 mls @ 250 mls/hr IV Q24H MELONY; Protocol Magnesium Hydroxide (Magnesium Hydroxide (Mom) Oral Liqd Udc) 30 ml PO Q4H PRN PRN Reason: Constipation Morphine Sulfate (Morphine 2 Mg/1 Ml Inj) 2 mg IV Q4H PRN PRN Reason: Pain, Moderate (4-6) Morphine Sulfate (Morphine 4 Mg/1 Ml Inj) 4 mg IV Q4H PRN PRN Reason: Pain , Severe (7-10) Multi-Ingred Cream/Lotion/Oil/Oint (Mineral Oil/Petrolatum, White Ophth Oint 3.5 Gm) 1 applic OU Q4H PRN PRN Reason: Dry Eye(s) Ondansetron HCl (Ondansetron 4 Mg/2 Ml Inj) 4 mg IV Q8H PRN PRN Reason: Nausea And Vomiting Senna/Docusate Sodium (Sennosides/Docusate Sodium 8.6/50 Mg Tab) 1 tab FEEDTUBE BID MELONY Sodium Chloride (Sodium Chloride 0.9% 10 Ml Flush Syringe) 10 ml IV BID MELONY Sodium Chloride (Sodium Chloride 0.9% 10 Ml Flush Syringe) 10 ml IV PRN PRN PRN Reason: LINE FLUSH Review of Systems ROS unobtainable: due to endotracheal tube Past History Past Medical History: arthritis, hypertension, renal failure, other (Chronic Right Bundle Branch Block) Past Surgical History: No surgical history Social history: no significant social history Medications and Allergies Allergies Allergy/AdvReac Type Severity Reaction Status Date / Time No Known Allergies Allergy Verified 11/09/20 17:19 Active Meds: Active Medications Acetaminophen (Acetaminophen 650 Mg Rect Supp) 650 mg NV Q6H PRN PRN Reason: Pain MILD(1-3)/Fever >100.5/REYES Acetaminophen (Acetaminophen 325 Mg Tab) 650 mg PO Q6H PRN PRN Reason: Pain, Mild (1-3) Hydrocodone Bitart/Acetaminophen (Hydrocodone/Acetaminophen 5-325 Mg Tab) 2 each PO Q6H PRN PRN Reason: Pain, Moderate (4-6) Lipase/Protease/Amylase (Lipase 10,500/Protease 25,000/Amylase 43,750 (Units) Dr Dacosta) 1 each FEEDTUBE PRN PRN PRN Reason: For Clogged Feeding Tube Dextrose (Dextrose 50% In Water (25gm) 50 Ml Syringe) 50 ml IV Q30MIN PRN; Protocol PRN Reason: Hypoglycemia Fentanyl (Fentanyl 100 Mcg/2 Ml Inj) 50 mcg IV Q10MIN PRN PRN Reason: ANALGESIA Hydralazine HCl (Hydralazine 20 Mg/1 Ml Inj) 10 mg IV Q6H PRN PRN Reason: Blood Pressure Hydrophilic Ointment (Lip Therapy Vaseline) 1 applic TP Q2H PRN PRN Reason: Dry Lips Propofol (Diprivan 10 Mg/Ml) 1,000 mg in 100 mls @ 2.245 mls/hr IV TITR MELONY; Protocol Last Admin: 11/11/20 18:35 Dose: 6 mcg/kg/min, 2.694 mls/hr Documented by: NORepinephrine/NS 8 MG-250 ML (Norepinephrine/Ns 8 Mg-250 Ml (Double Conc)) 8 mg in 250 mls @ 3.75 mls/hr IV TITRATE MELONY; Protocol Last Admin: 11/12/20 06:12 Dose: 24 mcg/min, 45 mls/hr Documented by: Fentanyl Citrate (Fentanyl Drip Premix) 2,000 mcg in 100 mls @ 11.226 mls/hr IV TITR MELONY; Protocol Last Admin: 11/11/20 18:37 Dose: 1 mcg/kg/hr, 3.742 mls/hr Documented by: Ceftriaxone Sodium (Rocephin/Ns 2 Gm/100 Ml) 2 gm in 100 mls @ 200 mls/hr IV Q24HR MELONY; Protocol Stop: 11/13/20 10:29 Last Admin: 11/11/20 10:05 Dose: 200 mls/hr Documented by: Azithromycin (Zithromax/Ns) 500 mg in 250 mls @ 250 mls/hr IV Q24HR MELONY; Protocol Stop: 11/13/20 10:59 Last Admin: 11/11/20 10:10 Dose: 250 mls/hr Documented by: Heparin Sodium/Sodium Chloride (Heparin/ 0.45% Nacl-25,000 Unit/500 Ml) 25,000 unit in 500 mls @ 24 mls/hr IV TITR MELONY; Protocol Last Admin: 11/11/20 21:13 Dose: 1,000 units/hr, 20 mls/hr Documented by: Sodium Chloride (Nacl 0.9% 1000 Ml) 1,000 mls @ 100 mls/hr IV DIRECT MELONY Stop: 11/13/20 06:00 Last Admin: 11/12/20 01:26 Dose: 100 mls/hr Documented by: Sodium Chloride (Nacl 0.9% 500 Ml) 500 mls @ 0 mls/hr IV ONCE NR Stop: 11/12/20 23:59 Insulin Human Regular (Insulin Regular, Human 100 Units/1 Ml) 0 units SUB-Q Q6H MELONY; Protocol Last Admin: 11/12/20 06:10 Dose: Not Given Documented by: Magnesium Hydroxide (Magnesium Hydroxide (Mom) Oral Liqd Udc) 30 ml PO Q4H PRN PRN Reason: Constipation Multi-Ingred Cream/Lotion/Oil/Oint (Mineral Oil/Petrolatum, White Ophth Oint 3.5 Gm) 1 applic OU Q4H PRN PRN Reason: Dry Eye(s) Ondansetron HCl (Ondansetron 4 Mg/2 Ml Inj) 4 mg IV Q8H PRN PRN Reason: Nausea And Vomiting Pantoprazole Sodium (Pantoprazole 40 Mg Inj) 40 mg IV BID [facility] Last Admin: 11/11/20 21:14 Dose: 40 mg Documented by: Senna/Docusate Sodium (Sennosides/Docusate Sodium 8.6/50 Mg Tab) 1 tab FEEDTUBE BID [facility] Last Admin: 11/11/20 21:21 Dose: Not Given Documented by: Simple Syrup (Simple Syrup 15 Ml) 15 ml FEEDTUBE PRN PRN PRN Reason: Hypoglycemia Simple Syrup (Simple Syrup 15 Ml) 30 ml FEEDTUBE PRN PRN PRN Reason: Hypoglycemia Sodium Bicarbonate (Sodium Bicarbonate 325 Mg Tab) 325 mg FEEDTUBE PRN PRN PRN Reason: For Clogged Feeding Tube Sodium Chloride (Sodium Chloride 0.9% 10 Ml Flush Syringe) 10 ml IV BID [facility] Last Admin: 11/11/20 21:14 Dose: 10 ml Documented by: Sodium Chloride (Sodium Chloride 0.9% 10 Ml Flush Syringe) 10 ml IV PRN PRN PRN Reason: LINE FLUSH Physical Examination - Vital Signs Vital Signs: Vital Signs Pulse Resp 121 H 10 L 11/09/20 17:14 11/09/20 17:14 - Constitutional General appearance: uncomfortable - EENT EENT: Present: PERRL, mucous membranes moist - Respiratory Respiratory: Present: chest non-tender, lungs clear, rhonchi - Cardiovascular Cardiovascular: Present: regular rate, normal S1, normal S2 Extremities: Present: no peripheral edema bilatateraly, no clubbing, cyanosis - Gastrointestinal Gastrointestinal: Present: normoactive bowel sounds - Integumentary Integumentary: Present: normal - Neurologic Cranial nerve examination: PERRL, EOMI, intact Speech examination: other (intubated) Detailed motor examination: grossly full strength in Results - Laboratory Findings CBC and BMP: 11/12/20 12:34 11/12/20 04:26 Abnormal Lab Findings: Abnormal Labs 10/02/21 10/02/21 10/02/21 17:24 17:24 17:24 WBC RBC 3.29 L Hgb Hct Plt Count 100 L Lymph % (Auto) 54.6 H Mcintosh % (Auto) Mcintosh # (Auto) Seg Neutrophils % 38.5 L Seg Neuts % (Manual) Lymphocytes % (Manual) Seg Neutrophils # Seg Neutrophils # Man Lymphocytes # (Manual) PT 19.9 H INR 1.64 H APTT 49.2 H Fibrinogen D-Dimer > 74399 H Heparin Anti-Xa Level ABG pH POC ABG pO2 ABG pO2 ABG HCO3 ABG O2 Saturation ABG Base Excess ABG Hemoglobin ABG Oxyhemoglobin ABG Sodium ABG Potassium ABG Chloride ABG Glucose Oxyhemoglobin Carboxyhemoglobin Sodium Potassium 2.9 L* Chloride Carbon Dioxide 13 L BUN Creatinine 1.4 H Glucose 391 H POC Glucose Lactic Acid Calcium AST ALT Lactate Dehydrogenase Total Creatine Kinase CK-MB (CK-2) 5.0 H CK-MB (CK-2) Rel Index 4.8 H Troponin T 0.263 H* C-Reactive Protein NT-Pro-B Natriuret Pep Total Protein Albumin Triglycerides 163 H HDL Cholesterol 29 L Arterial Blood Glucose Arterial Blood Ionized Calcium Urine Creatinine Urine Chloride Crossmatch 11/09/20 11/09/20 11/09/20 17:24 17:24 18:11 WBC RBC Hgb Hct Plt Count Lymph % (Auto) Mcintosh % (Auto) Mcintosh # (Auto) Seg Neutrophils % Seg Neuts % (Manual) Lymphocytes % (Manual) Seg Neutrophils # Seg Neutrophils # Man Lymphocytes # (Manual) PT INR APTT Fibrinogen D-Dimer Heparin Anti-Xa Level ABG pH POC ABG pO2 ABG pO2 ABG HCO3 ABG O2 Saturation ABG Base Excess ABG Hemoglobin ABG Oxyhemoglobin ABG Sodium ABG Potassium ABG Chloride ABG Glucose Oxyhemoglobin Carboxyhemoglobin Sodium Potassium Chloride Carbon Dioxide BUN Creatinine Glucose POC Glucose Lactic Acid 11.40 H* Calcium AST 312 H ALT 273 H Lactate Dehydrogenase Total Creatine Kinase CK-MB (CK-2) CK-MB (CK-2) Rel Index Troponin T C-Reactive Protein NT-Pro-B Natriuret Pep 1169 H Total Protein 5.2 L Albumin 2.8 L Triglycerides HDL Cholesterol Arterial Blood Glucose Arterial Blood Ionized Calcium Urine Creatinine Urine Chloride Crossmatch See Detail 11/09/20 11/09/20 11/09/20 18:21 20:07 20:07 WBC RBC Hgb Hct Plt Count Lymph % (Auto) Mcintosh % (Auto) Mcintosh # (Auto) Seg Neutrophils % Seg Neuts % (Manual) Lymphocytes % (Manual) Seg Neutrophils # Seg Neutrophils # Man Lymphocytes # (Manual) PT INR APTT Fibrinogen D-Dimer Heparin Anti-Xa Level ABG pH 7.053 L POC ABG pO2 159.6 H ABG pO2 ABG HCO3 ABG O2 Saturation ABG Base Excess ABG Hemoglobin ABG Oxyhemoglobin ABG Sodium 135.1 L ABG Potassium ABG Chloride ABG Glucose 421 H Oxyhemoglobin Carboxyhemoglobin 0.3 L Sodium Potassium Chloride Carbon Dioxide BUN Creatinine Glucose POC Glucose Lactic Acid 9.00 H* Calcium AST ALT Lactate Dehydrogenase Total Creatine Kinase 340 H CK-MB (CK-2) 14.2 H CK-MB (CK-2) Rel Index 4.1 H Troponin T 0.553 H* D C-Reactive Protein NT-Pro-B Natriuret Pep Total Protein Albumin Triglycerides HDL Cholesterol Arterial Blood Glucose 421 H Arterial Blood Ionized Calcium Urine Creatinine Urine Chloride Crossmatch 11/09/20 11/09/20 11/10/20 23:05 23:05 00:42 WBC RBC Hgb Hct Plt Count Lymph % (Auto) Mcintosh % (Auto) Mcintosh # (Auto) Seg Neutrophils % Seg Neuts % (Manual) Lymphocytes % (Manual) Seg Neutrophils # Seg Neutrophils # Man Lymphocytes # (Manual) PT 19.8 H INR 1.63 H APTT Fibrinogen 210 L D-Dimer Heparin Anti-Xa Level 0.79 H ABG pH POC ABG pO2 ABG pO2 ABG HCO3 ABG O2 Saturation ABG Base Excess ABG Hemoglobin ABG Oxyhemoglobin ABG Sodium ABG Potassium ABG Chloride ABG Glucose Oxyhemoglobin Carboxyhemoglobin Sodium Potassium Chloride Carbon Dioxide BUN Creatinine Glucose POC Glucose Lactic Acid 6.80 H* Calcium AST ALT Lactate Dehydrogenase Total Creatine Kinase 449 H CK-MB (CK-2) 18.4 H CK-MB (CK-2) Rel Index Troponin T 0.873 H* D C-Reactive Protein NT-Pro-B Natriuret Pep Total Protein Albumin Triglycerides HDL Cholesterol Arterial Blood Glucose Arterial Blood Ionized Calcium Urine Creatinine Urine Chloride Crossmatch 11/10/20 11/10/20 11/10/20 04:28 04:28 04:28 WBC RBC Hgb Hct Plt Count Lymph % (Auto) Mcintosh % (Auto) Mcintosh # (Auto) Seg Neutrophils % Seg Neuts % (Manual) Lymphocytes % (Manual) Seg Neutrophils # Seg Neutrophils # Man Lymphocytes # (Manual) PT 20.3 H INR 1.69 H APTT Fibrinogen D-Dimer > 02243 H Heparin Anti-Xa Level ABG pH POC ABG pO2 ABG pO2 ABG HCO3 ABG O2 Saturation ABG Base Excess ABG Hemoglobin ABG Oxyhemoglobin ABG Sodium ABG Potassium ABG Chloride ABG Glucose Oxyhemoglobin Carboxyhemoglobin Sodium 136 L Potassium 3.3 L Chloride Carbon Dioxide 16 L BUN 21 H Creatinine 1.8 H Glucose 376 H POC Glucose Lactic Acid Calcium AST ALT Lactate Dehydrogenase 1637 H Total Creatine Kinase CK-MB (CK-2) CK-MB (CK-2) Rel Index Troponin T C-Reactive Protein 3.50 H NT-Pro-B Natriuret Pep Total Protein Albumin Triglycerides HDL Cholesterol Arterial Blood Glucose Arterial Blood Ionized Calcium Urine Creatinine Urine Chloride Crossmatch 11/10/20 11/10/20 11/10/20 04:28 04:28 05:13 WBC 17.7 H RBC Hgb Hct Plt Count Lymph % (Auto) Mcintosh % (Auto) Mcintosh # (Auto) Seg Neutrophils % Seg Neuts % (Manual) 96.0 H Lymphocytes % (Manual) 1.0 L Seg Neutrophils # Seg Neutrophils # Man 17.0 H Lymphocytes # (Manual) 0.2 L PT INR APTT Fibrinogen D-Dimer Heparin Anti-Xa Level ABG pH 7.221 L POC ABG pO2 162.0 H ABG pO2 ABG HCO3 ABG O2 Saturation ABG Base Excess ABG Hemoglobin 11.7 L ABG Oxyhemoglobin 98.9 H ABG Sodium 133.6 L ABG Potassium 3.1 L ABG Chloride ABG Glucose 346 H Oxyhemoglobin Carboxyhemoglobin 0.1 L Sodium Potassium Chloride Carbon Dioxide BUN Creatinine Glucose POC Glucose Lactic Acid 6.10 H* Calcium AST ALT Lactate Dehydrogenase Total Creatine Kinase CK-MB (CK-2) CK-MB (CK-2) Rel Index Troponin T C-Reactive Protein NT-Pro-B Natriuret Pep Total Protein Albumin Triglycerides HDL Cholesterol Arterial Blood Glucose 346 H Arterial Blood Ionized Calcium Urine Creatinine Urine Chloride Crossmatch 11/10/20 11/10/20 11/10/20 11:06 12:30 15:08 WBC 16.1 H RBC 3.20 L Hgb 9.7 L Hct 29.5 L Plt Count Lymph % (Auto) 7.4 L Mcintosh % (Auto) 8.7 H Mcintosh # (Auto) 1.4 H Seg Neutrophils % 83.7 H Seg Neuts % (Manual) Lymphocytes % (Manual) Seg Neutrophils # 13.5 H Seg Neutrophils # Man Lymphocytes # (Manual) PT 18.9 H INR 1.53 H APTT 204.8 H* Fibrinogen D-Dimer Heparin Anti-Xa Level 0.76 H ABG pH POC ABG pO2 ABG pO2 ABG HCO3 ABG O2 Saturation ABG Base Excess ABG Hemoglobin ABG Oxyhemoglobin ABG Sodium ABG Potassium ABG Chloride ABG Glucose Oxyhemoglobin Carboxyhemoglobin Sodium Potassium Chloride Carbon Dioxide BUN Creatinine Glucose POC Glucose Lactic Acid Calcium AST ALT Lactate Dehydrogenase Total Creatine Kinase CK-MB (CK-2) CK-MB (CK-2) Rel Index Troponin T C-Reactive Protein NT-Pro-B Natriuret Pep Total Protein Albumin Triglycerides HDL Cholesterol Arterial Blood Glucose Arterial Blood Ionized Calcium Urine Creatinine 80.9 H Urine Chloride 38.8 L Crossmatch 11/10/20 11/10/20 11/10/20 15:08 17:17 18:25 WBC RBC Hgb Hct Plt Count Lymph % (Auto) Mcintosh % (Auto) Mcintosh # (Auto) Seg Neutrophils % Seg Neuts % (Manual) Lymphocytes % (Manual) Seg Neutrophils # Seg Neutrophils # Man Lymphocytes # (Manual) PT INR APTT Fibrinogen D-Dimer Heparin Anti-Xa Level ABG pH 7.206 L POC ABG pO2 ABG pO2 ABG HCO3 18.3 L ABG O2 Saturation ABG Base Excess -9.2 L ABG Hemoglobin 9.4 L ABG Oxyhemoglobin ABG Sodium ABG Potassium ABG Chloride ABG Glucose Oxyhemoglobin 94.3 L Carboxyhemoglobin Sodium Potassium Chloride Carbon Dioxide BUN Creatinine Glucose POC Glucose 200 H Lactic Acid 4.10 H* Calcium AST ALT Lactate Dehydrogenase Total Creatine Kinase CK-MB (CK-2) CK-MB (CK-2) Rel Index Troponin T C-Reactive Protein NT-Pro-B Natriuret Pep Total Protein Albumin Triglycerides HDL Cholesterol Arterial Blood Glucose Arterial Blood Ionized Calcium Urine Creatinine Urine Chloride Crossmatch 11/10/20 11/10/20 11/10/20 19:54 20:21 23:30 WBC RBC Hgb 9.7 L Hct 28.4 L Plt Count Lymph % (Auto) Mcintosh % (Auto) Mcintosh # (Auto) Seg Neutrophils % Seg Neuts % (Manual) Lymphocytes % (Manual) Seg Neutrophils # Seg Neutrophils # Man Lymphocytes # (Manual) PT INR APTT Fibrinogen D-Dimer Heparin Anti-Xa Level 0.13 L ABG pH POC ABG pO2 ABG pO2 ABG HCO3 ABG O2 Saturation ABG Base Excess ABG Hemoglobin ABG Oxyhemoglobin ABG Sodium ABG Potassium ABG Chloride ABG Glucose Oxyhemoglobin Carboxyhemoglobin Sodium Potassium Chloride Carbon Dioxide BUN Creatinine Glucose POC Glucose 166 H Lactic Acid Calcium AST ALT Lactate Dehydrogenase Total Creatine Kinase CK-MB (CK-2) CK-MB (CK-2) Rel Index Troponin T C-Reactive Protein NT-Pro-B Natriuret Pep Total Protein Albumin Triglycerides HDL Cholesterol Arterial Blood Glucose Arterial Blood Ionized Calcium Urine Creatinine Urine Chloride Crossmatch 11/11/20 11/11/20 11/11/20 04:12 04:35 04:35 WBC 16.0 H RBC 2.83 L Hgb 8.7 L Hct 25.8 L Plt Count Lymph % (Auto) Mcintosh % (Auto) Mcintosh # (Auto) Seg Neutrophils % Seg Neuts % (Manual) Lymphocytes % (Manual) Seg Neutrophils # Seg Neutrophils # Man Lymphocytes # (Manual) PT INR APTT Fibrinogen D-Dimer Heparin Anti-Xa Level 0.29 L ABG pH POC ABG pO2 ABG pO2 ABG HCO3 ABG O2 Saturation ABG Base Excess ABG Hemoglobin ABG Oxyhemoglobin ABG Sodium ABG Potassium ABG Chloride ABG Glucose Oxyhemoglobin Carboxyhemoglobin Sodium 136 L Potassium Chloride Carbon Dioxide 17 L BUN 25 H Creatinine 2.5 H Glucose 192 H POC Glucose Lactic Acid Calcium 7.6 L AST 232 H ALT 309 H Lactate Dehydrogenase Total Creatine Kinase CK-MB (CK-2) CK-MB (CK-2) Rel Index Troponin T C-Reactive Protein NT-Pro-B Natriuret Pep Total Protein 5.7 L Albumin 2.7 L Triglycerides HDL Cholesterol Arterial Blood Glucose Arterial Blood Ionized Calcium Urine Creatinine Urine Chloride Crossmatch 11/11/20 11/11/20 11/11/20 05:00 05:01 09:45 WBC RBC Hgb Hct Plt Count Lymph % (Auto) Mcintosh % (Auto) Mcintosh # (Auto) Seg Neutrophils % Seg Neuts % (Manual) Lymphocytes % (Manual) Seg Neutrophils # Seg Neutrophils # Man Lymphocytes # (Manual) PT INR APTT Fibrinogen D-Dimer Heparin Anti-Xa Level ABG pH POC ABG pO2 ABG pO2 172.4 H ABG HCO3 16.7 L ABG O2 Saturation 99.1 H ABG Base Excess -7.9 L ABG Hemoglobin 6.1 L ABG Oxyhemoglobin ABG Sodium ABG Potassium ABG Chloride ABG Glucose Oxyhemoglobin Carboxyhemoglobin Sodium Potassium Chloride Carbon Dioxide BUN Creatinine Glucose POC Glucose 191 H Lactic Acid 2.20 H* Calcium AST ALT Lactate Dehydrogenase Total Creatine Kinase CK-MB (CK-2) CK-MB (CK-2) Rel Index Troponin T C-Reactive Protein NT-Pro-B Natriuret Pep Total Protein Albumin Triglycerides HDL Cholesterol Arterial Blood Glucose Arterial Blood Ionized Calcium Urine Creatinine Urine Chloride Crossmatch 11/11/20 11/11/20 11/11/20 12:34 14:40 17:06 WBC RBC Hgb Hct Plt Count Lymph % (Auto) Mcintosh % (Auto) Mcintosh # (Auto) Seg Neutrophils % Seg Neuts % (Manual) Lymphocytes % (Manual) Seg Neutrophils # Seg Neutrophils # Man Lymphocytes # (Manual) PT INR APTT Fibrinogen D-Dimer Heparin Anti-Xa Level ABG pH POC ABG pO2 ABG pO2 ABG HCO3 ABG O2 Saturation ABG Base Excess ABG Hemoglobin ABG Oxyhemoglobin ABG Sodium ABG Potassium ABG Chloride ABG Glucose Oxyhemoglobin Carboxyhemoglobin Sodium Potassium Chloride Carbon Dioxide BUN Creatinine Glucose POC Glucose 141 H 157 H Lactic Acid 2.70 H* Calcium AST ALT Lactate Dehydrogenase Total Creatine Kinase CK-MB (CK-2) CK-MB (CK-2) Rel Index Troponin T C-Reactive Protein NT-Pro-B Natriuret Pep Total Protein Albumin Triglycerides HDL Cholesterol Arterial Blood Glucose Arterial Blood Ionized Calcium Urine Creatinine Urine Chloride Crossmatch 11/11/20 11/11/20 11/11/20 21:00 23:20 23:30 WBC RBC Hgb 7.1 L Hct 20.9 L Plt Count Lymph % (Auto) Mcintosh % (Auto) Mcintosh # (Auto) Seg Neutrophils % Seg Neuts % (Manual) Lymphocytes % (Manual) Seg Neutrophils # Seg Neutrophils # Man Lymphocytes # (Manual) PT INR APTT Fibrinogen D-Dimer Heparin Anti-Xa Level ABG pH 7.287 L POC ABG pO2 ABG pO2 ABG HCO3 ABG O2 Saturation ABG Base Excess ABG Hemoglobin 7.5 L ABG Oxyhemoglobin ABG Sodium 134.1 L ABG Potassium ABG Chloride 110.0 H ABG Glucose 141 H Oxyhemoglobin Carboxyhemoglobin Sodium Potassium Chloride Carbon Dioxide BUN Creatinine Glucose POC Glucose 127 H Lactic Acid Calcium AST ALT Lactate Dehydrogenase Total Creatine Kinase CK-MB (CK-2) CK-MB (CK-2) Rel Index Troponin T C-Reactive Protein NT-Pro-B Natriuret Pep Total Protein Albumin Triglycerides HDL Cholesterol Arterial Blood Glucose 141 H Arterial Blood Ionized Calcium 4.2 L Urine Creatinine Urine Chloride Crossmatch 11/12/20 11/12/20 11/12/20 04:26 04:26 04:26 WBC 16.8 H RBC 2.25 L Hgb 6.8 L Hct 20.5 L Plt Count Lymph % (Auto) Mcintosh % (Auto) Mcintosh # (Auto) Seg Neutrophils % Seg Neuts % (Manual) Lymphocytes % (Manual) Seg Neutrophils # Seg Neutrophils # Man Lymphocytes # (Manual) PT 17.6 H INR 1.40 H APTT 162.1 H* Fibrinogen D-Dimer Heparin Anti-Xa Level ABG pH POC ABG pO2 ABG pO2 ABG HCO3 ABG O2 Saturation ABG Base Excess ABG Hemoglobin ABG Oxyhemoglobin ABG Sodium ABG Potassium ABG Chloride ABG Glucose Oxyhemoglobin Carboxyhemoglobin Sodium Potassium Chloride 110.1 H Carbon Dioxide 18 L BUN 25 H Creatinine 2.4 H Glucose 146 H POC Glucose Lactic Acid Calcium 7.4 L AST ALT Lactate Dehydrogenase Total Creatine Kinase CK-MB (CK-2) CK-MB (CK-2) Rel Index Troponin T C-Reactive Protein NT-Pro-B Natriuret Pep Total Protein Albumin Triglycerides HDL Cholesterol Arterial Blood Glucose Arterial Blood Ionized Calcium Urine Creatinine Urine Chloride Crossmatch 11/12/20 06:01 WBC RBC Hgb Hct Plt Count Lymph % (Auto) Mcintosh % (Auto) Mcintosh # (Auto) Seg Neutrophils % Seg Neuts % (Manual) Lymphocytes % (Manual) Seg Neutrophils # Seg Neutrophils # Man Lymphocytes # (Manual) PT INR APTT Fibrinogen D-Dimer Heparin Anti-Xa Level ABG pH POC ABG pO2 ABG pO2 ABG HCO3 ABG O2 Saturation ABG Base Excess ABG Hemoglobin ABG Oxyhemoglobin ABG Sodium ABG Potassium ABG Chloride ABG Glucose Oxyhemoglobin Carboxyhemoglobin Sodium Potassium Chloride Carbon Dioxide BUN Creatinine Glucose POC Glucose 134 H Lactic Acid Calcium AST ALT Lactate Dehydrogenase Total Creatine Kinase CK-MB (CK-2) CK-MB (CK-2) Rel Index Troponin T C-Reactive Protein NT-Pro-B Natriuret Pep Total Protein Albumin Triglycerides HDL Cholesterol Arterial Blood Glucose Arterial Blood Ionized Calcium Urine Creatinine Urine Chloride Crossmatch Assessment and Plan Assessment and Plan Assessment and plan: This 84-year-old female with HTN, CKD, chronic right BBB, arthritis admitted s/P cardiac arrest, pulmonary embolism , Pneumonia and GI bleed #Neuro: Acute metabolic encephalopathy -CT head completed which shows no acute intracranial abnormality, probable meningioma along the right anterior frontal lobe -Avoid delirium - Cut down sedation as possible -Bilateral restraints for safety -Patient is awake, follows commands, positive track/focus, pupils equal round reactive #Cardio: S/p cardiopulmonary arrest, atrial fibrillation, acute diastolic heart failure -Cardiology consulted, appreciate recommendations -Echo 11/10/2020-EF 50 to 55%, right ventricular systolic function is normal, right ventricle is mildly dilated, left atrium not well visualized, mild mitral regurgitation, moderate pulmonary hypertension -Vasopressor support with Levophed and dopamine -Per cardiology dopamine transition to dobutamine with IV fluids -Blood pressure monitor per protocol #Respiratory: Acute hypoxic respiratory failure, acute pulmonary medicine with acute cor pulmonale -CCM consulted, appreciate recommendations -Intubated 11/09 with 7.0 at 22 at the lip -A.m. vent settings AC/PRVC rate 30, tidal volume 450, PEEP 6. 5% FiO2 -Rate reduced by CCM and repeat ABG at 2100 -See respiratory notes for titration -Serial CXR and ABGs -VAP bundle -11/11 ABG reviewed #GI: Upper GI hemorrhage, elevated LFT -GI consulted, appreciate recommendations -Protonix drip till 9 PM then will be switched to Protonix IV -Recommend Protonix 40 mg IV twice daily -Patient noted to be supratherapeutic heparin drip at the time of the consult and GI recommended titrating down heparin drip -Per GI will reassess for EGD if patient develops severe GI bleeding -BR: Senokot -24-hour net balance +1605 mL -Trend LFT #: Acute kidney injury,Severe metabolic acidosis -Nephrology consulted, appreciate recommendations -Likely prerenal injury in setting of acute bilateral pulmonary embolism with cor pulmonale and right-sided heart failure -Gentle IV hydration -Renal ultrasound showed no evidence of obstructive PE, bilateral echogenic kidneys -No indication for renal replacement at this time per nephrology -Urine electrolytes -Strict intake and output -Daily weights -Avoid nephrotoxic medications -Trend BMP #ID: Bilateral pneumonia, SIRS, lactic acidosis -Empiric antibiotics with Rocephin and azithromycin #Heme: Large bilateral segmental and subsegmental PE, thrombocytopenia, coagulopathy -Vascular surgery consulted, appreciate recommendations -S/p pulmonary angiography with placement of thrombolytic catheters -Heparin drip -Serial CBCs -Transfuse for hemoglobin less than 7 #Endo: NAD -Accucheck q6 -Avoid hypoglycemia The high probability of a clinically significant, sudden or life threatening deterioration of the [multi] system(s) required my full and direct attention, intervention and personal management. The aggregate critical care time was [60] minutes. This time is in addition to time spent performing reported procedures but includes the following: [x] Data Review and interpretation [x] Patient assessment and monitoring of vital signs [x] Documentation [x] Medication orders and management Disposition Plan: icu Total Time Spent with Patient (Minutes): 60 PLAN 1- review EEG 2- Cut down sedation as possible 3- Consider brain MRI with GD when possible 4- Ct brain showed possible meningioma right frontal area will follow
--- NOTE | 2020-11-12 10:12 | Progress Note ---
Assessment and Plan - Patient Problems (1) Acute kidney injury Current Visit: Yes Status: Acute Plan to address problem: Likely pre-renal injury in the setting of acute b/l PE with cor pulmonale and right sided heart failure. Underwent emergent CTA with contrast exposure which can also lead to further renal injury. Cont IVF with NS + 20 meq KCl to run at 75 cc/hr, along with vasopressor support to maintain MAP >65 mmHg, Avoid nephrotoxins. pt is maintaining good urine output, renal parameters stabillizing. No acute indication for renal replacement therapy at present. Renal US showed no evidence of obstructive uropathy, b/l echogenic kidneys seen. Will follow closely (2) Acute pulmonary embolism with acute cor pulmonale Current Visit: Yes Status: Acute Qualifiers: Pulmonary embolism type: saddle Qualified Code(s): I26.02 - Saddle embolus of pulmonary artery with acute cor pulmonale Plan to address problem: s/p pulmonary angiography and placement of b/l thrombolytics catheter placement by vascular surgery. Follow up further recommendations from cardiology. Unclear etiology of b/l PE. (3) Cardiopulmonary arrest Current Visit: Yes Status: Acute Plan to address problem: On multiple pressor support. Intubated, sedated. Further recommendations per cardiology. (4) Hypokalemia Current Visit: Yes Status: Acute Plan to address problem: normalized with IV KCl supplementation Subjective Date of service: 11/12/20 Principal diagnosis: Ac. hypoxemic resp failure; P.E.; PNA; Cardiac arrest; TYLER; Shock Interval history: Pt remains intubated, sedated. Objective - Vital Signs Vital signs: Vital Signs - 12hr 11/11/20 11/12/20 11/12/20 23:00 00:00 00:12 Temperature Pulse Rate 100 H 97 H 102 H Pulse Rate [ 95 H From Monitor] Respiratory 18 21 Rate Blood Pressure 114/57 117/54 119/55 O2 Sat by Pulse 98 100 99 Oximetry 11/12/20 11/12/20 11/12/20 01:00 02:00 03:00 Temperature Pulse Rate 102 H 98 H 96 H Pulse Rate [ From Monitor] Respiratory 20 20 20 Rate Blood Pressure 125/59 125/58 118/58 O2 Sat by Pulse 99 98 96 Oximetry 11/12/20 11/12/20 11/12/20 04:00 04:43 05:00 Temperature 99 F Pulse Rate 93 H 96 H 93 H Pulse Rate [ 94 H From Monitor] Respiratory 20 20 Rate Blood Pressure 117/57 120/60 123/57 O2 Sat by Pulse 99 97 98 Oximetry 11/12/20 11/12/20 11/12/20 06:00 07:00 07:59 Temperature Pulse Rate 97 H 89 101 H Pulse Rate [ From Monitor] Respiratory 21 20 Rate Blood Pressure 132/62 91/40 135/65 O2 Sat by Pulse 98 98 Oximetry 11/12/20 08:00 Temperature 99.4 F Pulse Rate Pulse Rate [ From Monitor] Respiratory Rate Blood Pressure O2 Sat by Pulse Oximetry - General Appearance General appearance: well-developed, well-nourished, appears stated age EENT: ATNC, PERRL, mucous membranes moist Neck: no JVD Respiratory: Present: Clear to Ascultation Cardiology: regular, S1S2 Gastrointestinal: normoactive bowel sounds Integumentary: no rash Neurologic: no focal deficit - Lab 11/12/20 04:26 11/12/20 04:26 Most recent lab results ABG pH 7.287 (7.320-7.450) L 11/11/20 21:00 ABG pCO2 29.4 mm Hg 11/11/20 09:45 ABG pO2 172.4 mm Hg (80.0-90.0) H 11/11/20 09:45 ABG HCO3 16.7 mmol/L (20.0-26.0) L 11/11/20 09:45 ABG O2 Saturation 97.4 (0-100) 11/11/20 21:00 Calcium 7.4 mg/dL (8.4-10.2) L 11/12/20 04:26 Urine Creatinine 80.9 mg/dL (0.1-20.0) H 11/10/20 11:06 Urine Sodium 48 mmol/L 11/10/20 11:06 Medications & Allergies - Medications Allergies/Adverse Reactions: Allergies No Known Allergies Allergy (Verified 11/09/20 17:19) Active Medications: Generic Name Dose Route Start Last Admin Trade Name Freq PRN Reason Stop Dose Admin Acetaminophen 650 mg 11/09/20 23:07 Acetaminophen 650 Mg Rect Supp MD Q6H PRN Pain MILD(1-3)/Fever >100.5/REYES Acetaminophen 650 mg 11/09/20 23:59 Acetaminophen 325 Mg Tab PO Q6H PRN Pain, Mild (1-3) Hydrocodone Bitart/Acetaminophen 2 each 11/09/20 23:59 Hydrocodone/Acetaminophen 5-325 Mg Tab PO Q6H PRN Pain, Moderate (4-6) Lipase/Protease/Amylase 1 each 11/11/20 17:17 Lipase 10,500/Protease 25,000/Amylase 43,750 (Units) Dr Cap FEEDTUBE PRN PRN For Clogged Feeding Tube Dextrose 50 ml 11/11/20 11:10 Dextrose 50% In Water (25gm) 50 Ml Syringe IV Q30MIN PRN Hypoglycemia Protocol Fentanyl 50 mcg 11/09/20 22:37 Fentanyl 100 Mcg/2 Ml Inj IV Q10MIN PRN ANALGESIA Hydralazine HCl 10 mg 11/10/20 16:49 Hydralazine 20 Mg/1 Ml Inj IV Q6H PRN Blood Pressure Hydrophilic Ointment 1 applic 11/09/20 17:08 Lip Therapy Vaseline TP Q2H PRN Dry Lips Propofol 1,000 mg in 100 mls @ 2.245 mls/hr 11/09/20 18:00 11/11/20 18:35 Diprivan 10 Mg/Ml IV 6 mcg/kg/min TITR MELONY 2.694 mls/hr Administration Protocol 5 MCG/KG/MIN NORepinephrine/NS 8 MG-250 ML 8 mg in 250 mls @ 3.75 mls/hr 11/09/20 18:00 11/12/20 06:12 Norepinephrine/Ns 8 Mg-250 Ml (Double Conc) IV 24 mcg/min TITRATE MELONY 45 mls/hr Administration Protocol 2 MCG/MIN Fentanyl Citrate 2,000 mcg in 100 mls @ 11.226 mls/hr 11/09/20 23:00 11/11/20 18:37 Fentanyl Drip Premix IV 1 mcg/kg/hr TITR MELONY 3.742 mls/hr Administration Protocol 3 MCG/KG/HR Ceftriaxone Sodium 2 gm in 100 mls @ 200 mls/hr 11/09/20 23:45 11/11/20 10:05 Rocephin/Ns 2 Gm/100 Ml IV 11/13/20 10:29 200 mls/hr Q24HR MELONY Administration Protocol Azithromycin 500 mg in 250 mls @ 250 mls/hr 11/09/20 23:45 11/11/20 10:10 Zithromax/Ns IV 11/13/20 10:59 250 mls/hr Q24HR MELONY Administration Protocol Heparin Sodium/Sodium Chloride 25,000 unit in 500 mls @ 24 mls/hr 11/10/20 12:00 11/11/20 21:13 Heparin/ 0.45% Nacl-25,000 Unit/500 Ml IV 1,000 units/hr TITR MELONY 20 mls/hr Administration Protocol 1,200 UNITS/HR Sodium Chloride 1,000 mls @ 100 mls/hr 11/11/20 15:45 11/12/20 01:26 Nacl 0.9% 1000 Ml IV 11/13/20 06:00 100 mls/hr DIRECT MELONY Administration Sodium Chloride 500 mls @ 0 mls/hr 11/12/20 09:06 Nacl 0.9% 500 Ml IV 11/12/20 23:59 ONCE NR As Directed Insulin Human Regular 0 units 11/11/20 12:00 11/12/20 06:10 Insulin Regular, Human 100 Units/1 Ml SUB-Q Not Given Q6H [facility] Protocol Magnesium Hydroxide 30 ml 11/09/20 23:07 Magnesium Hydroxide (Mom) Oral Liqd Udc PO Q4H PRN Constipation Multi-Ingred Cream/Lotion/Oil/Oint 1 applic 11/09/20 17:08 Mineral Oil/Petrolatum, White Ophth Oint 3.5 Gm OU Q4H PRN Dry Eye(s) Ondansetron HCl 4 mg 11/09/20 23:07 Ondansetron 4 Mg/2 Ml Inj IV Q8H PRN Nausea And Vomiting Pantoprazole Sodium 40 mg 11/11/20 22:00 11/11/20 21:14 Pantoprazole 40 Mg Inj IV 40 mg BID MELONY Administration Senna/Docusate Sodium 1 tab 11/09/20 22:00 11/11/20 21:21 Sennosides/Docusate Sodium 8.6/50 Mg Tab FEEDTUBE Not Given BID MELONY Simple Syrup 15 ml 11/11/20 17:17 Simple Syrup 15 Ml FEEDTUBE PRN PRN Hypoglycemia Simple Syrup 30 ml 11/11/20 17:17 Simple Syrup 15 Ml FEEDTUBE PRN PRN Hypoglycemia Sodium Bicarbonate 325 mg 11/11/20 17:17 Sodium Bicarbonate 325 Mg Tab FEEDTUBE PRN PRN For Clogged Feeding Tube Sodium Chloride 10 ml 11/10/20 10:00 11/11/20 21:14 Sodium Chloride 0.9% 10 Ml Flush Syringe IV 10 ml BID MELONY Administration Sodium Chloride 10 ml 11/09/20 23:07 Sodium Chloride 0.9% 10 Ml Flush Syringe IV PRN PRN LINE FLUSH
--- NOTE | 2020-11-12 11:11 | Electrocardiograph Report ---
[facility] Test Date: 2020-11-09 Test Time: 17:09:21 Pat Name: AGUSTIN BHATIA Department: Room: A263 1 Gender: F [employer]: YONY : 1935 Requested By: CHUYITA GARCIA Order Number: [id number] Reading MD: Juan Manuel Cox Measurements Intervals [place] Rate: 102 P: [place]: QRS: -6 QRSD: 160 T: -41 QT: 394 QTc: 515 Interpretive Statements Atrial fibrillation Right bundle branch block No previous ECG available for comparison Electronically Signed On 11-12-2020 11:10:51 EDT by Juan Manuel Cox
[2020-11-12] MEDS: SENNOSIDES/DOCUSATE SODIUM 8.6/50 MG TAB FEEDTUBE SCH ×3 (11:54→21:31)
[2020-11-12] MEDS: PANTOPRAZOLE 40 MG INJ IV SCH ×2 (11:54→21:31)
[2020-11-12] MEDS: AZITHROMYCIN/NS 500 MG/250 ML 500 MG/250 ML BAG IV SCH (11:55)
[2020-11-12] MEDS: cefTRIAXone/NS 2 GM/100 ML 2 GM/100 ML BAG IV SCH (11:55)
--- NOTE | 2020-11-12 12:04 | Progress Note ---
Assessment and Plan Assessment and plan: This 84-year-old female with HTN, CKD, chronic right BBB, arthritis admitted s/P cardiac arrest, pulmonary embolism , Pneumonia and GI bleed Neuro: Acute metabolic encephalopathy -CT head completed which shows no acute intracranial abnormality, probable meningioma along the right anterior frontal lobe -Avoid delirium -Sedated with propofol and fentanyl -RASS goal 0 to -1 -Bilateral restraints for safety -Patient is awake, follows commands, positive track/focus, pupils equal round reactive Cardio: S/p cardiopulmonary arrest, atrial fibrillation, acute diastolic heart failure -Cardiology consulted, appreciate recommendations -Echo 11/10/2020-EF 50 to 55%, right ventricular systolic function is normal, right ventricle is mildly dilated, left atrium not well visualized, mild mitral regurgitation, moderate pulmonary hypertension -Vasopressor support with Levophed -s/p dopamine and dobutamine with IVF -Blood pressure monitoring per protocol Respiratory: Acute hypoxic respiratory failure, acute pulmonary medicine with acute cor pulmonale -[facility] consulted, appreciate recommendations -Intubated 11/09 with 7.0 at 22 at the lip -A.m. vent settings: AC TV 450, R 20, PEEP 6, FiO2 40% -placed on CPAP this am -See respiratory notes for titration -Serial CXR and ABGs -VAP bundle -11/11 ABG reviewed GI: Upper GI hemorrhage, elevated LFTs -GI consulted, appreciate recommendations -s/p Protonix drip till 9 PM and now on Protonix IV BID -Hepatic serologies pending -Per GI will reassess for EGD if patient develops severe GI bleeding -BR: Senokot -24-hour net balance +668ml -Trend LFT -Gastric occult positive : Acute kidney injury,Severe metabolic acidosis -Nephrology consulted, appreciate recommendations -Likely prerenal injury in setting of acute bilateral pulmonary embolism with cor pulmonale and right-sided heart failure -Gentle IV hydration -Renal ultrasound showed no evidence of obstructive PE, bilateral echogenic kidneys -No indication for renal replacement at this time per nephrology -Urine electrolytes -Strict intake and output -Daily weights -Avoid nephrotoxic medications -Trend BMP ID: Bilateral pneumonia, SIRS, lactic acidosis -Empiric antibiotics with Rocephin and azithromycin (11/09-11/13) -Monitor fever and WBC curve -CXR noted with worsening bilateral airspace disease Heme: Large bilateral segmental and subsegmental PE, thrombocytopenia, coagulopathy, anemia, Left LE DVT -Vascular surgery consulted, appreciate recommendations -S/p pulmonary angiography with placement of thrombolytic catheters -Protonix BID -Heparin drip -Transfuse for hemoglobin less than 7 -Hbg 6.8 today -1 unit prbc today -recheck CBC -noted to have bloody drainage / dried blood around mouth but NGT to suction with [id number] secretions -TF to restart if okay with GI Endo: NAD -Accucheck q6 -Avoid hypoglycemia The high probability of a clinically significant, sudden or life threatening deterioration of the [multi] system(s) required my full and direct attention, intervention and personal management. The aggregate critical care time was [60] minutes. This time is in addition to time spent performing reported procedures but includes the following: [x] Data Review and interpretation [x] Patient assessment and monitoring of vital signs [x] Documentation [x] Medication orders and management Disposition Plan: icu Total Time Spent with Patient (Minutes): 60 History Interval history: This is a 84-year-old female with HTN, CKD, chronic RBBB, arthritis who presented to the emergency department on 11/09 from the department With valuation of difficulty breathing and shortness of breath. Upon arrival to the emergency department patient was actively unresponsive and positive pressure ventilation was started and subsequently had a cardiac arrest with eventual ROSC. Work-up emergency department revealed elevated D-dimer of greater than 10,000, elevated lactic acid, CTA showed bilateral segmental and subsegmental emboli with right heart strain, bibasilar airspace consolidation and trace right pleural effusion compatible with pneumonia. Vascular surgery was consulted for thrombolysis. Patient was admitted to the hospitalist service with consults to [facility], cardi ology, nephrology and gastroenterology. 11/10: Patient seen and examined this morning review of her electrolytes shows some abnormalities with noted worsening renal failure in the setting of hypotension. Noted A. fib on EKG. Patient remains on EKOS system. Will obtain cardiology and nephrology evaluation. Echocardiogram to further evaluate condition of the heart in the setting of her cardiac arrest. Patient remains a PUI Covid testing is pending. Discussed with coyote hunter this morning may cons ider changing from dopamine to dobutamine but will await cardiology evaluation. Possible further hydration in the setting of underlying right heart failure. I did discuss with the family who are not aware of any renal problems in the past. Ventilator management per maintenance department manager. Closely monitor leukocytosis no fever noted at this time. I will replace potassium as noted hypokalemia Discussed with family the two daughters in detail 11/11: Patient is having blood-tinged secretions while suctioning, NG tube to dark secretions, gastric occult sent. PICC line ordered to be placed. Cardiology to change dopamine to dobutamine and start normal saline. No plans for hemodialysis per nephrology. 11/12: CPAP trial, PICC placement today and will remove femoral line after placement. No indication for renal replacement per nephrology. BLE doppler US per vascular. Hospitalist Physical - Constitutional Vitals: Temp Pulse Resp BP Pulse Ox 99.4 F 95 H 11 L 137/64 97 11/12/20 08:00 11/12/20 11:00 11/12/20 11:00 11/12/20 11:00 11/12/20 11:00 General appearance: Present: no acute distress, other (Intubated) - EENT Eyes: Present: PERRL, EOM intact ENT: hearing intact, clear oral mucosa, dentition normal - Neck Neck: Present: normal ROM - Respiratory Respiratory effort: normal Respiratory: bilateral: diminished - Cardiovascular Rhythm: regular Heart Sounds: Present: S1 & S2. Absent: systolic murmur, diastolic murmur - Extremities Extremities: no ischemia, pulses intact, pulses symmetrical, normal temperature, normal color Peripheral Pulses: within normal limits - Abdominal General gastrointestinal: soft, non-tender, non-distended, normal bowel sounds - Integumentary Integumentary: Present: warm, dry - Psychiatric Psychiatric: cooperative - Neurologic Neurologic: moves all extremities - Allied Health Allied health notes reviewed: nursing, RT, social work HEART Score - HEART Score Troponin: Troponin T 0.873 ng/mL (0.00-0.029) H* D 11/09/20 23:05 Results - Labs CBC & Chem 7: 11/12/20 12:34 11/12/20 04:26 Labs: Laboratory Last Values WBC 16.8 K/mm3 (4.5-11.0) H 11/12/20 04:26 RBC 2.25 M/mm3 (3.65-5.03) L 11/12/20 04:26 Hgb 6.8 gm/dl (10.1-14.3) L 11/12/20 04:26 Hct 20.5 % (30.3-42.9) L 11/12/20 04:26 MCV 91 fl (79-97) 11/12/20 04:26 MCH 30 pg (28-32) 11/12/20 04:26 MCHC 33 % (30-34) 11/12/20 04:26 RDW 14.8 % (13.2-15.2) 11/12/20 04:26 Plt Count 148 K/mm3 (140-440) 11/12/20 04:26 Lymph % (Auto) 7.4 % (13.4-35.0) L 11/10/20 15:08 Antelope % (Auto) 8.7 % (0.0-7.3) H 11/10/20 15:08 Eos % (Auto) 0.1 % (0.0-4.3) 11/10/20 15:08 Baso % (Auto) 0.1 % (0.0-1.8) 11/10/20 15:08 Lymph # (Auto) 1.2 K/mm3 (1.2-5.4) 11/10/20 15:08 Antelope # (Auto) 1.4 K/mm3 (0.0-0.8) H 11/10/20 15:08 Eos # (Auto) 0.0 K/mm3 (0.0-0.4) 11/10/20 15:08 Baso # (Auto) 0.0 K/mm3 (0.0-0.1) 11/10/20 15:08 Add Manual Diff Complete 11/10/20 04:28 Total Counted 100 11/10/20 04:28 Seg Neutrophils % 83.7 % (40.0-70.0) H 11/10/20 15:08 Seg Neuts % (Manual) 96.0 % (40.0-70.0) H 11/10/20 04:28 Lymphocytes % (Manual) 1.0 % (13.4-35.0) L 11/10/20 04:28 Monocytes % (Manual) 3.0 % (0.0-7.3) 11/10/20 04:28 Nucleated RBC % Not Reportable 11/10/20 04:28 Seg Neutrophils # 13.5 K/mm3 (1.8-7.7) H 11/10/20 15:08 Seg Neutrophils # Man 17.0 K/mm3 (1.8-7.7) H 11/10/20 04:28 Band Neutrophils # 0.0 K/mm3 11/10/20 04:28 Lymphocytes # (Manual) 0.2 K/mm3 (1.2-5.4) L 11/10/20 04:28 Abs React Lymphs (Man) 0.0 K/mm3 11/10/20 04:28 Monocytes # (Manual) 0.5 K/mm3 (0.0-0.8) 11/10/20 04:28 Eosinophils # (Manual) 0.0 K/mm3 (0.0-0.4) 11/10/20 04:28 Basophils # (Manual) 0.0 K/mm3 (0.0-0.1) 11/10/20 04:28 Metamyelocytes # 0.0 K/mm3 11/10/20 04:28 Myelocytes # 0.0 K/mm3 11/10/20 04:28 Promyelocytes # 0.0 K/mm3 11/10/20 04:28 Blast Cells # 0.0 K/mm3 11/10/20 04:28 WBC Morphology Not Reportable 11/10/20 04:28 Hypersegmented Neuts Not Reportable 11/10/20 04:28 Hyposegmented Neuts Not Reportable 11/10/20 04:28 Hypogranular Neuts Not Reportable 11/10/20 04:28 Smudge Cells Not Reportable 11/10/20 04:28 Toxic Granulation Not Reportable 11/10/20 04:28 Toxic Vacuolation Not Reportable 11/10/20 04:28 Dohle Bodies Not Reportable 11/10/20 04:28 Pelger-Huet Anomaly Not Reportable 11/10/20 04:28 Carmen Rods Not Reportable 11/10/20 04:28 Platelet Estimate Consistent w auto 11/10/20 04:28 Clumped Platelets Not Reportable 11/10/20 04:28 Plt Clumps, EDTA Not Reportable 11/10/20 04:28 Large Platelets Not Reportable 11/10/20 04:28 Giant Platelets Not Reportable 11/10/20 04:28 Platelet Satelliting Not Reportable 11/10/20 04:28 Plt Morphology Comment Not Reportable 11/10/20 04:28 RBC Morphology Not Reportable 11/10/20 04:28 Dimorphic RBCs Not Reportable 11/10/20 04:28 Polychromasia Not Reportable 11/10/20 04:28 Hypochromasia Not Reportable 11/10/20 04:28 Poikilocytosis Not Reportable 11/10/20 04:28 Anisocytosis 1+ 11/10/20 04:28 Microcytosis Not Reportable 11/10/20 04:28 Macrocytosis Not Reportable 11/10/20 04:28 Spherocytes Not Reportable 11/10/20 04:28 Pappenheimer Bodies Not Reportable 11/10/20 04:28 Sickle Cells Not Reportable 11/10/20 04:28 Target Cells Not Reportable 11/10/20 04:28 Tear Drop Cells Not Reportable 11/10/20 04:28 Ovalocytes Not Reportable 11/10/20 04:28 Helmet Cells Not Reportable 11/10/20 04:28 Ul-Hallett Bodies Not Reportable 11/10/20 04:28 Warren Rings Not Reportable 11/10/20 04:28 Randall Cells Not Reportable 11/10/20 04:28 Bite Cells Not Reportable 11/10/20 04:28 Crenated Cell Not Reportable 11/10/20 04:28 Elliptocytes Not Reportable 11/10/20 04:28 Acanthocytes (Spur) Not Reportable 11/10/20 04:28 Rouleaux Not Reportable 11/10/20 04:28 Hemoglobin C Crystals Not Reportable 11/10/20 04:28 Schistocytes Not Reportable 11/10/20 04:28 Malaria parasites Not Reportable 11/10/20 04:28 Vernon Bodies Not Reportable 11/10/20 04:28 Hem Pathologist Commnt No 11/10/20 04:28 PT 17.6 Sec. (12.2-14.9) H 11/12/20 04:26 INR 1.40 (0.87-1.13) H 11/12/20 04:26 APTT 162.1 Sec. (24.2-36.6) H* 11/12/20 04:26 Fibrinogen 299 mg/dl (211-480) 11/10/20 15:08 D-Dimer > 39273 ng/mlDDU (0-234) H 11/10/20 04:28 Heparin Anti-Xa Level 0.29 U.I./ml (0.3-0.7) L 11/11/20 04:12 ABG pH 7.287 (7.320-7.450) L 11/11/20 21:00 POC ABG pCO2 38.0 mmHg (32.0-48.0) 11/11/20 21:00 ABG pCO2 29.4 mm Hg 11/11/20 09:45 POC ABG pO2 105.7 mmHg (83-108) 11/11/20 21:00 ABG pO2 172.4 mm Hg (80.0-90.0) H 11/11/20 09:45 POC ABG HCO3 2.3 11/11/20 21:00 ABG HCO3 16.7 mmol/L (20.0-26.0) L 11/11/20 09:45 ABG O2 Saturation 97.4 (0-100) 11/11/20 21:00 ABG O2 Content 8.8 (0.0-44) 11/11/20 09:45 POC ABG Base Excess -8.2 11/11/20 21:00 ABG Base Excess -7.9 mmol/L (-2.0-3.0) L 11/11/20 09:45 ABG Hemoglobin 7.5 (12.0-17.5) L 11/11/20 21:00 ABG Oxyhemoglobin 96.4 (94-98) 11/11/20 21:00 ABG Carboxyhemoglobin 0.9 % (0.0-5.0) 11/11/20 09:45 ABG Methemoglobin 0.3 (0.0-1.5) 11/11/20 21:00 ABG Sodium 134.1 mmol/L (136.0-145.0) L 11/11/20 21:00 ABG Potassium 4.0 mmol/L (3.40-4.50) 11/11/20 21:00 ABG Chloride 110.0 mmol/L (98-107) H 11/11/20 21:00 ABG Glucose 141 mg/dL (65-95) H 11/11/20 21:00 Oxyhemoglobin 97.8 % (95.0-99.0) 11/11/20 09:45 Carboxyhemoglobin 0.7 (0.5-1.5) 11/11/20 21:00 FiO2 55 % 11/11/20 09:45 FiO2 % 40.0 11/11/20 21:00 Sodium 140 mmol/L (137-145) 11/12/20 04:26 Potassium 4.1 mmol/L (3.6-5.0) 11/12/20 04:26 Chloride 110.1 mmol/L (98-107) H 11/12/20 04:26 Carbon Dioxide 18 mmol/L (22-30) L 11/12/20 04:26 Anion Gap 16 mmol/L 11/12/20 04:26 BUN 25 mg/dL (7-17) H 11/12/20 04:26 Creatinine 2.4 mg/dL (0.6-1.2) H 11/12/20 04:26 Estimated GFR 23 ml/min 11/12/20 04:26 BUN/Creatinine Ratio 10 % 11/12/20 04:26 Glucose 146 mg/dL (65-100) H 11/12/20 04:26 POC Glucose 134 mg/dL (70-105) H 11/12/20 06:01 Lactic Acid 1.20 mmol/L (0.7-2.0) 11/11/20 23:20 Calcium 7.4 mg/dL (8.4-10.2) L 11/12/20 04:26 Total Bilirubin 0.30 mg/dL (0.1-1.2) 11/11/20 04:35 Direct Bilirubin < 0.2 mg/dL (0-0.2) 11/09/20 17:24 Indirect Bilirubin 0.1 mg/dL 11/09/20 17:24 AST 232 units/L (5-40) H 11/11/20 04:35 ALT 309 units/L (7-56) H 11/11/20 04:35 Alkaline Phosphatase 92 units/L (35-129) 11/11/20 04:35 Lactate Dehydrogenase 1637 units/L (91-180) H 11/10/20 04:28 Total Creatine Kinase 449 units/L (30-135) H 11/09/20 23:05 CK-MB (CK-2) 18.4 ng/mL (0.0-4.0) H 11/09/20 23:05 CK-MB (CK-2) Rel Index 4.0 (0-4) 11/09/20 23:05 Troponin T 0.873 ng/mL (0.00-0.029) H* D 11/09/20 23:05 C-Reactive Protein 3.50 mg/dL (0.00-1.30) H 11/10/20 04:28 NT-Pro-B Natriuret Pep 1169 pg/mL (0-900) H 11/09/20 17:24 Total Protein 5.7 g/dL (6.3-8.2) L 11/11/20 04:35 Albumin 2.7 g/dL (3.9-5) L 11/11/20 04:35 Albumin/Globulin Ratio 0.9 % 11/11/20 04:35 Triglycerides 163 mg/dL (2-149) H 11/09/20 17:24 Cholesterol 118 mg/dL (50-199) 11/09/20 17:24 LDL Cholesterol Direct 72 mg/dL (50-130) 11/09/20 17:24 HDL Cholesterol 29 mg/dL (40-59) L 11/09/20 17:24 Cholesterol/HDL Ratio 4.06 % 11/09/20 17:24 Procalcitonin 9.69 ng/mL (<0.15) 11/10/20 04:28 Arterial Blood Glucose 141 mg/dL (65-95) H 11/11/20 21:00 Arterial Blood Ionized Calcium 4.2 mg/dL (4.6-5.3) L 11/11/20 21:00 Urine Color Straw (Yellow) 11/09/20 19:07 Urine Turbidity Clear (Clear) 11/09/20 19:07 Urine pH 7.0 (5.0-7.0) 11/09/20 19:07 Ur Specific Douglas 1.003 (1.003-1.030) 11/09/20 19:07 Urine Protein <15 mg/dl mg/dL (Negative) 11/09/20 19:07 Urine Glucose (UA) Neg mg/dL (Negative) 11/09/20 19:07 Urine Ketones Neg mg/dL (Negative) 11/09/20 19:07 Urine Blood Mod (Negative) 11/09/20 19:07 Urine Nitrite Neg (Negative) 10/02/21 19:07 Urine Bilirubin Neg (Negative) 11/09/20 19:07 Urine Urobilinogen < 2.0 mg/dL (<2.0) 11/09/20 19:07 Ur Leukocyte Esterase Neg (Negative) 11/09/20 19:07 Urine WBC (Auto) 2.0 /HPF (0.0-6.0) 11/09/20 19:07 Urine RBC (Auto) 2.0 /HPF (0.0-6.0) 11/09/20 19:07 U Epithel Cells (Auto) 1.0 /HPF (0-13.0) 11/09/20 19:07 Urine Bacteria (Auto) 1+ /HPF (Negative) 11/09/20 19:07 Urine Creatinine 80.9 mg/dL (0.1-20.0) H 11/10/20 11:06 Urine Sodium 48 mmol/L 11/10/20 11:06 Urine Chloride 38.8 mmolL (110-250) L 11/10/20 11:06 Urine Opiates Screen Negative 11/09/20 19:07 Urine Methadone Screen Negative 11/09/20 19:07 Ur Barbiturates Screen Negative 11/09/20 19:07 Ur Phencyclidine Scrn Negative 11/09/20 19:07 Ur Amphetamines Screen Negative 11/09/20 19:07 U Benzodiazepines Scrn Negative 11/09/20 19:07 Urine Cocaine Screen Negative 11/09/20 19:07 U Marijuana (THC) Screen Negative 11/09/20 19:07 Drugs of Abuse Note Disclamer 11/09/20 19:07 Coronavirus (PCR) Negative (Negative) 11/10/20 Unknown Blood Type O POSITIVE 11/09/20 17:24 Antibody Screen Negative 11/09/20 17:24 Crossmatch See Detail 11/09/20 17:24 Microbiology: Microbiology 11/09/20 23:05 Peripheral/Venous Blood Culture - Preliminary NO GROWTH AFTER 48 HOURS 11/09/20 22:59 Peripheral/Venous Blood Culture - Preliminary NO GROWTH AFTER 48 HOURS 11/11/20 Unknown Gatric Aspirate Gastric Occult Blood - Final Gonsalves/IV: Voiding Method Indwelling Catheter Active Medications - Current Medications Current Medications: Generic Name Dose Route Start Last Admin Trade Name Freq PRN Reason Stop Dose Admin Acetaminophen 650 mg 11/09/20 23:07 Acetaminophen 650 Mg Rect Supp W[place] Q6H PRN Pain MILD(1-3)/Fever >100.5/REYES Acetaminophen 650 mg 11/09/20 23:59 Acetaminophen 325 Mg Tab PO Q6H PRN Pain, Mild (1-3) Hydrocodone Bitart/Acetaminophen 2 each 11/09/20 23:59 Hydrocodone/Acetaminophen 5-325 Mg Tab PO Q6H PRN Pain, Moderate (4-6) Lipase/Protease/Amylase 1 each 11/11/20 17:17 Lipase 10,500/Protease 25,000/Amylase 43,750 (Units) Dr Cap FEEDTUBE PRN PRN For Clogged Feeding Tube Dextrose 50 ml 11/11/20 11:10 Dextrose 50% In Water (25gm) 50 Ml Syringe IV Q30MIN PRN Hypoglycemia Protocol Fentanyl 50 mcg 11/09/20 22:37 Fentanyl 100 Mcg/2 Ml Inj IV Q10MIN PRN ANALGESIA Hydralazine HCl 10 mg 11/10/20 16:49 Hydralazine 20 Mg/1 Ml Inj IV Q6H PRN Blood Pressure Hydrophilic Ointment 1 applic 11/09/20 17:08 Lip Therapy Vaseline TP Q2H PRN Dry Lips Propofol 1,000 mg in 100 mls @ 2.245 mls/hr 11/09/20 18:00 11/11/20 18:35 Diprivan 10 Mg/Ml IV 6 mcg/kg/min TITR MELONY 2.694 mls/hr Administration Protocol 5 MCG/KG/MIN NORepinephrine/NS 8 MG-250 ML 8 mg in 250 mls @ 3.75 mls/hr 11/09/20 18:00 11/12/20 06:12 Norepinephrine/Ns 8 Mg-250 Ml (Double Conc) IV 24 mcg/min TITRATE MELONY 45 mls/hr Administration Protocol 2 MCG/MIN Fentanyl Citrate 2,000 mcg in 100 mls @ 11.226 mls/hr 11/09/20 23:00 11/11/20 18:37 Fentanyl Drip Premix IV 1 mcg/kg/hr TITR MELONY 3.742 mls/hr Administration Protocol 3 MCG/KG/HR Ceftriaxone Sodium 2 gm in 100 mls @ 200 mls/hr 11/09/20 23:45 11/12/20 11:55 Rocephin/Ns 2 Gm/100 Ml IV 11/13/20 10:29 200 mls/hr Q24HR MELONY Administration Protocol Azithromycin 500 mg in 250 mls @ 250 mls/hr 11/09/20 23:45 11/12/20 11:55 Zithromax/Ns IV 11/13/20 10:59 250 mls/hr Q24HR MELONY Administration Protocol Heparin Sodium/Sodium Chloride 25,000 unit in 500 mls @ 24 mls/hr 11/10/20 12:00 11/11/20 21:13 Heparin/ 0.45% Nacl-25,000 Unit/500 Ml IV 1,000 units/hr TITR MELONY 20 mls/hr Administration Protocol 1,200 UNITS/HR Sodium Chloride 1,000 mls @ 100 mls/hr 11/11/20 15:45 11/12/20 01:26 Nacl 0.9% 1000 Ml IV 11/13/20 06:00 100 mls/hr DIRECT MELONY Administration Sodium Chloride 500 mls @ 0 mls/hr 11/12/20 09:06 Nacl 0.9% 500 Ml IV 11/12/20 23:59 ONCE NR As Directed Insulin Human Regular 0 units 11/11/20 12:00 11/12/20 06:10 Insulin Regular, Human 100 Units/1 Ml SUB-Q Not Given Q6H MELONY Protocol Magnesium Hydroxide 30 ml 11/09/20 23:07 Magnesium Hydroxide (Mom) Oral Liqd Udc PO Q4H PRN Constipation Multi-Ingred Cream/Lotion/Oil/Oint 1 applic 11/09/20 17:08 Mineral Oil/Petrolatum, White Ophth Oint 3.5 Gm OU Q4H PRN Dry Eye(s) Ondansetron HCl 4 mg 11/09/20 23:07 Ondansetron 4 Mg/2 Ml Inj IV Q8H PRN Nausea And Vomiting Pantoprazole Sodium 40 mg 11/11/20 22:00 11/12/20 11:54 Pantoprazole 40 Mg Inj IV 40 mg BID MELONY Administration Senna/Docusate Sodium 1 tab 11/09/20 22:00 11/12/20 11:54 Sennosides/Docusate Sodium 8.6/50 Mg Tab FEEDTUBE 1 tab BID MELONY Administration Simple Syrup 15 ml 11/11/20 17:17 Simple Syrup 15 Ml FEEDTUBE PRN PRN Hypoglycemia Simple Syrup 30 ml 11/11/20 17:17 Simple Syrup 15 Ml FEEDTUBE PRN PRN Hypoglycemia Sodium Bicarbonate 325 mg 11/11/20 17:17 Sodium Bicarbonate 325 Mg Tab FEEDTUBE PRN PRN For Clogged Feeding Tube Sodium Chloride 10 ml 11/10/20 10:00 11/12/20 11:56 Sodium Chloride 0.9% 10 Ml Flush Syringe IV 10 ml BID MELONY Administration Sodium Chloride 10 ml 11/09/20 23:07 Sodium Chloride 0.9% 10 Ml Flush Syringe IV PRN PRN LINE FLUSH Nutrition/Malnutrition Assess - Dietary Evaluation Nutrition/Malnutrition Findings: Nutrition Notes Start: 11/10/20 09:17 Freq: Status: Active Protocol: Document 11/11/20 16:39 GB (Rec: 11/11/20 16:53 GB [id number]) Nutrition Notes Initial or Follow up Reassessment Current Diagnosis CKD(stage I-IV),Hypertension Other Pertinent Diagnosis pneu, cardiopulmonary arrest, SIRS, acute diastolic heart failure Current Diet NPO, TF ordered Labs/Tests 11/11: Na 136, BUN 25, creatinine 2.5, glucose 192, Ca 7.6, AST 232, ALT 309 Pertinent Medications Azithromycin, dobutmine Hcl/D5 x 6.075ml/hr (25kcal), Fentanyl, Norepinephrine/Ns8 Mg250, Propofol at 3.592 ml/hr (95 kcal), NaCl Height 5 ft 6 in Weight 81 kg [place]comb Body Weight (kg) 59.09 BMI 28.8 Weight change and time frame stable at this time Weight Status Overweight Subjective/Other Information MD consult for diet education. Due to advanced age and vent status, pt not appropriate. Pt on hold in ED. 11/11 in cc1. orders for TF, vent continues. NG tube for suction at this time Percent of energy/protein needs met: 0%. NPO continues, NG for suction at this time. Burn Absent Trauma Absent GI Symptoms Other Food Allergy No Skin Integrity/Comment no complications at this time. Current % PO Other Minimum of two criteria No #1 Nutrition Diagnosis Inadequate oral intake Comments: 11/11: vent continues, TF orders entered Etiology ARF As Evidenced by Signs and Symptoms pt on vent and unable to consume PO Diagnosis Progress(for reassessment Continues documentation) Is patient on ventilator? Yes Is Patient Ambulatory and/or Out of Bed No REE-(Yell-[place]. [place]-confined to bed) 1533.288 Kcal/Kg value to use for calculation 22 Approximate Energy Requirements Using 1782 kcal/Kg Calculation Used for Recommendations Kcal/kg Additional Notes Protein: (1.2-1.5g/kg @ 81kg) 97-121g Fluid: 1 ml/kcal or per MD Nutrition Intervention Change Diet Order: Advance as able Nutrition Support: Recommend TF: Vital AF 1.2 at 50 ml/hr Kcal 1,440 Protein (gm) 90 Fluid (mL) 973 Goal #1 Diet advancement or TF start 11/11: TF orders entered Vital 1.2 AF @ 50ml/hr, flush 100ml/ 4hr Goal #2 TF at goal rate 50ml/hr and tolerated Anticipated Discharge Needs: Unable to determine at this time Follow-Up By: 11/15/20 Additional Comments f/u: TF tolerance, at goal of 50ml/hr
--- NOTE | 2020-11-12 12:26 | Progress Note ---
Assessment and Plan Acute hypoxemic respiratory failure Acute pulmonary embolism bilaterally Bilateral pulmonary infiltrates/pneumonia Cardiac arrest with ROSC Clhui-bo-wgonhki kidney injury Oropharyngeal dysphagia HTN Shock (cardiogenic and hypovolemic) Chronic right bundle-branch block Arthritis Thrombocytopenia Coagulopathy Hypokalemia Severe metabolic acidosis Lactic acidosis Elevated serum transaminases Possible NSTEMI - follow tracheal aspirate - begin tube feeds if OK with G.I. team - transfuse 1 unit PRBC - continue to trend H&H - reduced set rate to 16/min - repeat ABG at 9 pm - follow I's & O's; leave prince in place in short term re: critical illness and TYLER - continue full anticoagulation for VTE - lactate now WNL - remains on Levophed (wean for target MAP > 65 mmHg) - Dobutrex discontinued - continue care as below otherwise; - Daily SAT and SBT assessment as tolerated - continue to wean supplemental oxygen for target O2 sat's > 90% acutely - VAP bundle addressed - continue lung protective strategies - continue bronchodilators with pulmonary hygiene per RT - wean per pulmonary driven protocols otherwise - continue accuchecks with glycemic control per SSI (While critically ill target blood glucose of 140-180 mg/dL; avoid hypoglycemia) - sedation prn for target RASS 0 to -1 - avoid nephrotoxins, renally dose all medications - continue to avoid benzodiazepine's, reduce the possibility of delirium - completed AB's per ID rec's - prn analgesia per CPOT score - Maintenance of sleep-wake cycle, avoid delirium - continue enteral nutritional support at goal rate as tolerated - G.I. & VTE prophylaxis - PT/OT/ROM exercises - continue mobility protocols for pressure ulcer prophylaxis - Monitor hemodynamics closely - continue other care per attending / other consultants - discharge planning ongoing concurrently COVID SPECIFIC INTERVENTIONS - COVID-19 test negative .... Re-evaluate in am & prn CONDITION: CRITICAL PROGNOSIS: GUARDED CODE STATUS: FULL CODE The high probability of a clinically significant, sudden or life-threatening deterioration of the [respiratory, cardiovascular, GI & neurologic] system(s) required my full and direct attention, intervention and personal management. The aggregate critical care time was [36] minutes without overlap. Time includes spent on; [x] Data Review and interpretation [x] Patient assessment and monitoring of vital signs [x] Documentation [x] Medication orders and management Subjective Date of service: 11/12/20 Principal diagnosis: Ac. hypoxemic resp failure; P.E.; PNA; Cardiac arrest; TYLER; Shock Interval history: Patient is seen today for: Acute hypoxemic respiratory failure; Acute P.E.; Pneumonia; Cardiac arrest with ROSC; TYLER; Shock (cardiogenic and hypovolemic); Thrombocytopenia Seen and examined at bedside; 24hour events reviewed; nursing and respiratory care staff consulted; no adverse overnight events reported to me; resting in bed; on SBT now and tolerating decently; ABG's acceptable with mild metabolic acidosis; H&H trending down but no gross G.I. bleeding; nod's head "yes" to pain question today Objective Vital Signs - 12hr 11/12/20 11/12/20 11/12/20 01:00 02:00 03:00 Temperature Pulse Rate 102 H 98 H 96 H Pulse Rate [ From Monitor] Respiratory 20 20 20 Rate Blood Pressure 125/59 125/58 118/58 O2 Sat by Pulse 99 98 96 Oximetry 11/12/20 11/12/20 11/12/20 04:00 04:43 05:00 Temperature 99 F Pulse Rate 93 H 96 H 93 H Pulse Rate [ 94 H From Monitor] Respiratory 20 20 Rate Blood Pressure 117/57 120/60 123/57 O2 Sat by Pulse 99 97 98 Oximetry 11/12/20 11/12/20 11/12/20 06:00 07:00 07:59 Temperature Pulse Rate 97 H 89 101 H Pulse Rate [ From Monitor] Respiratory 21 20 Rate Blood Pressure 132/62 91/40 135/65 O2 Sat by Pulse 98 98 Oximetry 11/12/20 11/12/20 11/12/20 08:00 09:00 10:00 Temperature 99.4 F Pulse Rate 104 H 99 H 102 H Pulse Rate [ 105 H From Monitor] Respiratory 19 20 12 Rate Blood Pressure 135/65 130/57 129/55 O2 Sat by Pulse 99 98 97 Oximetry 11/12/20 11/12/20 11:00 12:02 Temperature Pulse Rate 95 H Pulse Rate [ From Monitor] Respiratory 11 L Rate Blood Pressure 137/64 O2 Sat by Pulse 97 96 Oximetry Constitutional: appears uncomfortable, other (elderly obese female with mildly increased respiratory effort at rest) Eyes: non-icteric ENT: oropharynx moist, oropharyngeal exudate pre (blood tinged), other (ETT 24 cm LOIDA) Neck: supple, no lymphadenopathy, no JVD Effort: normal Ascultation: Bilateral: diminished breath sounds, rhonchi Percussion: Bilateral: not dull Cardiovascular: regular rate and rhythm Gastrointestinal: normoactive bowel sounds, soft, non-tender, non-distended (protuberant), other (NGT effluent is non bloody) Integumentary: normal Extremities: no cyanosis, pulses normal, no ischemia or petechiae Neurologic: non-focal exam (grossly), pupils equal and round, CN II-XII normal Psychiatric: mood appropriate (no new infiltrate), affect normal CBC and BMP: 11/12/20 12:34 11/12/20 04:26 ABG, PT/INR, D-dimer: ABG ABG pH 7.287 (7.320-7.450) L 11/11/20 21:00 POC ABG pCO2 38.0 mmHg (32.0-48.0) 11/11/20 21:00 ABG pCO2 29.4 mm Hg 11/11/20 09:45 POC ABG pO2 105.7 mmHg (83-108) 11/11/20 21:00 ABG pO2 172.4 mm Hg (80.0-90.0) H 11/11/20 09:45 POC ABG HCO3 2.3 11/11/20 21:00 ABG O2 Saturation 97.4 (0-100) 11/11/20 21:00 PT/INR, D-dimer PT 17.6 Sec. (12.2-14.9) H 11/12/20 04:26 INR 1.40 (0.87-1.13) H 11/12/20 04:26 D-Dimer > 07202 ng/mlDDU (0-234) H 11/10/20 04:28 Abnormal lab findings: Abnormal Labs 11/09/20 11/09/20 11/09/20 17:24 17:24 17:24 WBC RBC 3.29 L Hgb Hct Plt Count 100 L Lymph % (Auto) 54.6 H [place] % (Auto) [place] # (Auto) Seg Neutrophils % 38.5 L Seg Neuts % (Manual) Lymphocytes % (Manual) Seg Neutrophils # Seg Neutrophils # Man Lymphocytes # (Manual) PT 19.9 H INR 1.64 H APTT 49.2 H Fibrinogen D-Dimer > 97400 H Heparin Anti-Xa Level ABG pH POC ABG pO2 ABG pO2 ABG HCO3 ABG O2 Saturation ABG Base Excess ABG Hemoglobin ABG Oxyhemoglobin ABG Sodium ABG Potassium ABG Chloride ABG Glucose Oxyhemoglobin Carboxyhemoglobin Sodium Potassium 2.9 L* Chloride Carbon Dioxide 13 L BUN Creatinine 1.4 H Glucose 391 H POC Glucose Lactic Acid Calcium AST ALT Lactate Dehydrogenase Total Creatine Kinase CK-MB (CK-2) 5.0 H CK-MB (CK-2) Rel Index 4.8 H Troponin T 0.263 H* C-Reactive Protein NT-Pro-B Natriuret Pep Total Protein Albumin Triglycerides 163 H HDL Cholesterol 29 L Arterial Blood Glucose Arterial Blood Ionized Calcium Urine Creatinine Urine Chloride Crossmatch 11/09/20 11/09/20 11/09/20 17:24 17:24 18:11 WBC RBC Hgb Hct Plt Count Lymph % (Auto) [place] % (Auto) [place] # (Auto) Seg Neutrophils % Seg Neuts % (Manual) Lymphocytes % (Manual) Seg Neutrophils # Seg Neutrophils # Man Lymphocytes # (Manual) PT INR APTT Fibrinogen D-Dimer Heparin Anti-Xa Level ABG pH POC ABG pO2 ABG pO2 ABG HCO3 ABG O2 Saturation ABG Base Excess ABG Hemoglobin ABG Oxyhemoglobin ABG Sodium ABG Potassium ABG Chloride ABG Glucose Oxyhemoglobin Carboxyhemoglobin Sodium Potassium Chloride Carbon Dioxide BUN Creatinine Glucose POC Glucose Lactic Acid 11.40 H* Calcium AST 312 H ALT 273 H Lactate Dehydrogenase Total Creatine Kinase CK-MB (CK-2) CK-MB (CK-2) Rel Index Troponin T C-Reactive Protein NT-Pro-B Natriuret Pep 1169 H Total Protein 5.2 L Albumin 2.8 L Triglycerides HDL Cholesterol Arterial Blood Glucose Arterial Blood Ionized Calcium Urine Creatinine Urine Chloride Crossmatch See Detail 11/09/20 11/09/20 11/09/20 18:21 20:07 20:07 WBC RBC Hgb Hct Plt Count Lymph % (Auto) [place] % (Auto) [place] # (Auto) Seg Neutrophils % Seg Neuts % (Manual) Lymphocytes % (Manual) Seg Neutrophils # Seg Neutrophils # Man Lymphocytes # (Manual) PT INR APTT Fibrinogen D-Dimer Heparin Anti-Xa Level ABG pH 7.053 L POC ABG pO2 159.6 H ABG pO2 ABG HCO3 ABG O2 Saturation ABG Base Excess ABG Hemoglobin ABG Oxyhemoglobin ABG Sodium 135.1 L ABG Potassium ABG Chloride ABG Glucose 421 H Oxyhemoglobin Carboxyhemoglobin 0.3 L Sodium Potassium Chloride Carbon Dioxide BUN Creatinine Glucose POC Glucose Lactic Acid 9.00 H* Calcium AST ALT Lactate Dehydrogenase Total Creatine Kinase 340 H CK-MB (CK-2) 14.2 H CK-MB (CK-2) Rel Index 4.1 H Troponin T 0.553 H* D C-Reactive Protein NT-Pro-B Natriuret Pep Total Protein Albumin Triglycerides HDL Cholesterol Arterial Blood Glucose 421 H Arterial Blood Ionized Calcium Urine Creatinine Urine Chloride Crossmatch 11/09/20 11/09/20 11/10/20 23:05 23:05 00:42 WBC RBC Hgb Hct Plt Count Lymph % (Auto) [place] % (Auto) [place] # (Auto) Seg Neutrophils % Seg Neuts % (Manual) Lymphocytes % (Manual) Seg Neutrophils # Seg Neutrophils # Man Lymphocytes # (Manual) PT 19.8 H INR 1.63 H APTT Fibrinogen 210 L D-Dimer Heparin Anti-Xa Level 0.79 H ABG pH POC ABG pO2 ABG pO2 ABG HCO3 ABG O2 Saturation ABG Base Excess ABG Hemoglobin ABG Oxyhemoglobin ABG Sodium ABG Potassium ABG Chloride ABG Glucose Oxyhemoglobin Carboxyhemoglobin Sodium Potassium Chloride Carbon Dioxide BUN Creatinine Glucose POC Glucose Lactic Acid 6.80 H* Calcium AST ALT Lactate Dehydrogenase Total Creatine Kinase 449 H CK-MB (CK-2) 18.4 H CK-MB (CK-2) Rel Index Troponin T 0.873 H* D C-Reactive Protein NT-Pro-B Natriuret Pep Total Protein Albumin Triglycerides HDL Cholesterol Arterial Blood Glucose Arterial Blood Ionized Calcium Urine Creatinine Urine Chloride Crossmatch 11/10/20 11/10/20 11/10/20 04:28 04:28 04:28 WBC RBC Hgb Hct Plt Count Lymph % (Auto) [place] % (Auto) [place] # (Auto) Seg Neutrophils % Seg Neuts % (Manual) Lymphocytes % (Manual) Seg Neutrophils # Seg Neutrophils # Man Lymphocytes # (Manual) PT 20.3 H INR 1.69 H APTT Fibrinogen D-Dimer > 88176 H Heparin Anti-Xa Level ABG pH POC ABG pO2 ABG pO2 ABG HCO3 ABG O2 Saturation ABG Base Excess ABG Hemoglobin ABG Oxyhemoglobin ABG Sodium ABG Potassium ABG Chloride ABG Glucose Oxyhemoglobin Carboxyhemoglobin Sodium 136 L Potassium 3.3 L Chloride Carbon Dioxide 16 L BUN 21 H Creatinine 1.8 H Glucose 376 H POC Glucose Lactic Acid Calcium AST ALT Lactate Dehydrogenase 1637 H Total Creatine Kinase CK-MB (CK-2) CK-MB (CK-2) Rel Index Troponin T C-Reactive Protein 3.50 H NT-Pro-B Natriuret Pep Total Protein Albumin Triglycerides HDL Cholesterol Arterial Blood Glucose Arterial Blood Ionized Calcium Urine Creatinine Urine Chloride Crossmatch 11/10/20 11/10/20 11/10/20 04:28 04:28 05:13 WBC 17.7 H RBC Hgb Hct Plt Count Lymph % (Auto) [place] % (Auto) [place] # (Auto) Seg Neutrophils % Seg Neuts % (Manual) 96.0 H Lymphocytes % (Manual) 1.0 L Seg Neutrophils # Seg Neutrophils # Man 17.0 H Lymphocytes # (Manual) 0.2 L PT INR APTT Fibrinogen D-Dimer Heparin Anti-Xa Level ABG pH 7.221 L POC ABG pO2 162.0 H ABG pO2 ABG HCO3 ABG O2 Saturation ABG Base Excess ABG Hemoglobin 11.7 L ABG Oxyhemoglobin 98.9 H ABG Sodium 133.6 L ABG Potassium 3.1 L ABG Chloride ABG Glucose 346 H Oxyhemoglobin Carboxyhemoglobin 0.1 L Sodium Potassium Chloride Carbon Dioxide BUN Creatinine Glucose POC Glucose Lactic Acid 6.10 H* Calcium AST ALT Lactate Dehydrogenase Total Creatine Kinase CK-MB (CK-2) CK-MB (CK-2) Rel Index Troponin T C-Reactive Protein NT-Pro-B Natriuret Pep Total Protein Albumin Triglycerides HDL Cholesterol Arterial Blood Glucose 346 H Arterial Blood Ionized Calcium Urine Creatinine Urine Chloride Crossmatch 11/10/20 11/10/20 11/10/20 11:06 12:30 15:08 WBC 16.1 H RBC 3.20 L Hgb 9.7 L Hct 29.5 L Plt Count Lymph % (Auto) 7.4 L [place] % (Auto) 8.7 H [place] # (Auto) 1.4 H Seg Neutrophils % 83.7 H Seg Neuts % (Manual) Lymphocytes % (Manual) Seg Neutrophils # 13.5 H Seg Neutrophils # Man Lymphocytes # (Manual) PT 18.9 H INR 1.53 H APTT 204.8 H* Fibrinogen D-Dimer Heparin Anti-Xa Level 0.76 H ABG pH POC ABG pO2 ABG pO2 ABG HCO3 ABG O2 Saturation ABG Base Excess ABG Hemoglobin ABG Oxyhemoglobin ABG Sodium ABG Potassium ABG Chloride ABG Glucose Oxyhemoglobin Carboxyhemoglobin Sodium Potassium Chloride Carbon Dioxide BUN Creatinine Glucose POC Glucose Lactic Acid Calcium AST ALT Lactate Dehydrogenase Total Creatine Kinase CK-MB (CK-2) CK-MB (CK-2) Rel Index Troponin T C-Reactive Protein NT-Pro-B Natriuret Pep Total Protein Albumin Triglycerides HDL Cholesterol Arterial Blood Glucose Arterial Blood Ionized Calcium Urine Creatinine 80.9 H Urine Chloride 38.8 L Crossmatch 11/10/20 11/10/20 11/10/20 15:08 17:17 18:25 WBC RBC Hgb Hct Plt Count Lymph % (Auto) [place] % (Auto) [place] # (Auto) Seg Neutrophils % Seg Neuts % (Manual) Lymphocytes % (Manual) Seg Neutrophils # Seg Neutrophils # Man Lymphocytes # (Manual) PT INR APTT Fibrinogen D-Dimer Heparin Anti-Xa Level ABG pH 7.206 L POC ABG pO2 ABG pO2 ABG HCO3 18.3 L ABG O2 Saturation ABG Base Excess -9.2 L ABG Hemoglobin 9.4 L ABG Oxyhemoglobin ABG Sodium ABG Potassium ABG Chloride ABG Glucose Oxyhemoglobin 94.3 L Carboxyhemoglobin Sodium Potassium Chloride Carbon Dioxide BUN Creatinine Glucose POC Glucose 200 H Lactic Acid 4.10 H* Calcium AST ALT Lactate Dehydrogenase Total Creatine Kinase CK-MB (CK-2) CK-MB (CK-2) Rel Index Troponin T C-Reactive Protein NT-Pro-B Natriuret Pep Total Protein Albumin Triglycerides HDL Cholesterol Arterial Blood Glucose Arterial Blood Ionized Calcium Urine Creatinine Urine Chloride Crossmatch 11/10/20 11/10/20 11/10/20 19:54 20:21 23:30 WBC RBC Hgb 9.7 L Hct 28.4 L Plt Count Lymph % (Auto) [place] % (Auto) [place] # (Auto) Seg Neutrophils % Seg Neuts % (Manual) Lymphocytes % (Manual) Seg Neutrophils # Seg Neutrophils # Man Lymphocytes # (Manual) PT INR APTT Fibrinogen D-Dimer Heparin Anti-Xa Level 0.13 L ABG pH POC ABG pO2 ABG pO2 ABG HCO3 ABG O2 Saturation ABG Base Excess ABG Hemoglobin ABG Oxyhemoglobin ABG Sodium ABG Potassium ABG Chloride ABG Glucose Oxyhemoglobin Carboxyhemoglobin Sodium Potassium Chloride Carbon Dioxide BUN Creatinine Glucose POC Glucose 166 H Lactic Acid Calcium AST ALT Lactate Dehydrogenase Total Creatine Kinase CK-MB (CK-2) CK-MB (CK-2) Rel Index Troponin T C-Reactive Protein NT-Pro-B Natriuret Pep Total Protein Albumin Triglycerides HDL Cholesterol Arterial Blood Glucose Arterial Blood Ionized Calcium Urine Creatinine Urine Chloride Crossmatch 11/11/20 11/11/20 11/11/20 04:12 04:35 04:35 WBC 16.0 H RBC 2.83 L Hgb 8.7 L Hct 25.8 L Plt Count Lymph % (Auto) [place] % (Auto) [place] # (Auto) Seg Neutrophils % Seg Neuts % (Manual) Lymphocytes % (Manual) Seg Neutrophils # Seg Neutrophils # Man Lymphocytes # (Manual) PT INR APTT Fibrinogen D-Dimer Heparin Anti-Xa Level 0.29 L ABG pH POC ABG pO2 ABG pO2 ABG HCO3 ABG O2 Saturation ABG Base Excess ABG Hemoglobin ABG Oxyhemoglobin ABG Sodium ABG Potassium ABG Chloride ABG Glucose Oxyhemoglobin Carboxyhemoglobin Sodium 136 L Potassium Chloride Carbon Dioxide 17 L BUN 25 H Creatinine 2.5 H Glucose 192 H POC Glucose Lactic Acid Calcium 7.6 L AST 232 H ALT 309 H Lactate Dehydrogenase Total Creatine Kinase CK-MB (CK-2) CK-MB (CK-2) Rel Index Troponin T C-Reactive Protein NT-Pro-B Natriuret Pep Total Protein 5.7 L Albumin 2.7 L Triglycerides HDL Cholesterol Arterial Blood Glucose Arterial Blood Ionized Calcium Urine Creatinine Urine Chloride Crossmatch 11/11/20 11/11/20 11/11/20 05:00 05:01 09:45 WBC RBC Hgb Hct Plt Count Lymph % (Auto) [place] % (Auto) [place] # (Auto) Seg Neutrophils % Seg Neuts % (Manual) Lymphocytes % (Manual) Seg Neutrophils # Seg Neutrophils # Man Lymphocytes # (Manual) PT INR APTT Fibrinogen D-Dimer Heparin Anti-Xa Level ABG pH POC ABG pO2 ABG pO2 172.4 H ABG HCO3 16.7 L ABG O2 Saturation 99.1 H ABG Base Excess -7.9 L ABG Hemoglobin 6.1 L ABG Oxyhemoglobin ABG Sodium ABG Potassium ABG Chloride ABG Glucose Oxyhemoglobin Carboxyhemoglobin Sodium Potassium Chloride Carbon Dioxide BUN Creatinine Glucose POC Glucose 191 H Lactic Acid 2.20 H* Calcium AST ALT Lactate Dehydrogenase Total Creatine Kinase CK-MB (CK-2) CK-MB (CK-2) Rel Index Troponin T C-Reactive Protein NT-Pro-B Natriuret Pep Total Protein Albumin Triglycerides HDL Cholesterol Arterial Blood Glucose Arterial Blood Ionized Calcium Urine Creatinine Urine Chloride Crossmatch 11/11/20 11/11/20 11/11/20 12:34 14:40 17:06 WBC RBC Hgb Hct Plt Count Lymph % (Auto) [place] % (Auto) [place] # (Auto) Seg Neutrophils % Seg Neuts % (Manual) Lymphocytes % (Manual) Seg Neutrophils # Seg Neutrophils # Man Lymphocytes # (Manual) PT INR APTT Fibrinogen D-Dimer Heparin Anti-Xa Level ABG pH POC ABG pO2 ABG pO2 ABG HCO3 ABG O2 Saturation ABG Base Excess ABG Hemoglobin ABG Oxyhemoglobin ABG Sodium ABG Potassium ABG Chloride ABG Glucose Oxyhemoglobin Carboxyhemoglobin Sodium Potassium Chloride Carbon Dioxide BUN Creatinine Glucose POC Glucose 141 H 157 H Lactic Acid 2.70 H* Calcium AST ALT Lactate Dehydrogenase Total Creatine Kinase CK-MB (CK-2) CK-MB (CK-2) Rel Index Troponin T C-Reactive Protein NT-Pro-B Natriuret Pep Total Protein Albumin Triglycerides HDL Cholesterol Arterial Blood Glucose Arterial Blood Ionized Calcium Urine Creatinine Urine Chloride Crossmatch 11/11/20 11/11/20 11/11/20 21:00 23:20 23:30 WBC RBC Hgb 7.1 L Hct 20.9 L Plt Count Lymph % (Auto) [place] % (Auto) [place] # (Auto) Seg Neutrophils % Seg Neuts % (Manual) Lymphocytes % (Manual) Seg Neutrophils # Seg Neutrophils # Man Lymphocytes # (Manual) PT INR APTT Fibrinogen D-Dimer Heparin Anti-Xa Level ABG pH 7.287 L POC ABG pO2 ABG pO2 ABG HCO3 ABG O2 Saturation ABG Base Excess ABG Hemoglobin 7.5 L ABG Oxyhemoglobin ABG Sodium 134.1 L ABG Potassium ABG Chloride 110.0 H ABG Glucose 141 H Oxyhemoglobin Carboxyhemoglobin Sodium Potassium Chloride Carbon Dioxide BUN Creatinine Glucose POC Glucose 127 H Lactic Acid Calcium AST ALT Lactate Dehydrogenase Total Creatine Kinase CK-MB (CK-2) CK-MB (CK-2) Rel Index Troponin T C-Reactive Protein NT-Pro-B Natriuret Pep Total Protein Albumin Triglycerides HDL Cholesterol Arterial Blood Glucose 141 H Arterial Blood Ionized Calcium 4.2 L Urine Creatinine Urine Chloride Crossmatch 11/12/20 11/12/20 11/12/20 04:26 04:26 04:26 WBC 16.8 H RBC 2.25 L Hgb 6.8 L Hct 20.5 L Plt Count Lymph % (Auto) [place] % (Auto) [place] # (Auto) Seg Neutrophils % Seg Neuts % (Manual) Lymphocytes % (Manual) Seg Neutrophils # Seg Neutrophils # Man Lymphocytes # (Manual) PT 17.6 H INR 1.40 H APTT 162.1 H* Fibrinogen D-Dimer Heparin Anti-Xa Level ABG pH POC ABG pO2 ABG pO2 ABG HCO3 ABG O2 Saturation ABG Base Excess ABG Hemoglobin ABG Oxyhemoglobin ABG Sodium ABG Potassium ABG Chloride ABG Glucose Oxyhemoglobin Carboxyhemoglobin Sodium Potassium Chloride 110.1 H Carbon Dioxide 18 L BUN 25 H Creatinine 2.4 H Glucose 146 H POC Glucose Lactic Acid Calcium 7.4 L AST ALT Lactate Dehydrogenase Total Creatine Kinase CK-MB (CK-2) CK-MB (CK-2) Rel Index Troponin T C-Reactive Protein NT-Pro-B Natriuret Pep Total Protein Albumin Triglycerides HDL Cholesterol Arterial Blood Glucose Arterial Blood Ionized Calcium Urine Creatinine Urine Chloride Crossmatch 11/12/20 11/12/20 06:01 12:02 WBC RBC Hgb Hct Plt Count Lymph % (Auto) [place] % (Auto) [place] # (Auto) Seg Neutrophils % Seg Neuts % (Manual) Lymphocytes % (Manual) Seg Neutrophils # Seg Neutrophils # Man Lymphocytes # (Manual) PT INR APTT Fibrinogen D-Dimer Heparin Anti-Xa Level ABG pH POC ABG pO2 ABG pO2 ABG HCO3 ABG O2 Saturation ABG Base Excess ABG Hemoglobin ABG Oxyhemoglobin ABG Sodium ABG Potassium ABG Chloride ABG Glucose Oxyhemoglobin Carboxyhemoglobin Sodium Potassium Chloride Carbon Dioxide BUN Creatinine Glucose POC Glucose 134 H 131 H Lactic Acid Calcium AST ALT Lactate Dehydrogenase Total Creatine Kinase CK-MB (CK-2) CK-MB (CK-2) Rel Index Troponin T C-Reactive Protein NT-Pro-B Natriuret Pep Total Protein Albumin Triglycerides HDL Cholesterol Arterial Blood Glucose Arterial Blood Ionized Calcium Urine Creatinine Urine Chloride Crossmatch Chest x-ray: image reviewed (rotated film; no new infiltrate) Allied health notes reviewed: nursing
[2020-11-12 13:19] LABS: Hematocrit 20.3 % (30.3-42.9); Hemoglobin 6.8 gm/dl (10.1-14.3)
--- NOTE | 2020-11-12 13:42 | Progress Note ---
Assessment and Plan 84-year-old female status post cardiac arrest presumed secondary to pulmonary embolism status post thrombolysis with improvement in hemodynamics on pulmonary angiography. Patient is more somnolent today. Patient is only on 1 pressor and 1 sedation medicine today. Unfortunately, the MAP was 100 when I was in the room and the patient was on high dose norepinephrine. Discussed with nurse who will titrate medication down so MAP is between 65 to 70 Patient has had hemoglobin decreased since yesterday and is now receiving 1 unit packed red blood cells. This is likely an upper GI source. Already on pantoprazole twice daily. Patient has IVC filter in place, and there was minimal residual pulmonary embolism material in the pulmonary arteries. Ordered DVT study of the lower extremities. If necessary, can hold anticoagulation for a few days and then reinitiate anticoagulation. Discussed with nurse and SCDs are in place. Subjective Date of service: 11/12/20 Principal diagnosis: Ac. hypoxemic resp failure; P.E.; PNA; Cardiac arrest; TYLER; Shock Interval history: More sedated. On 1 pressors, but also on 1 medications to sedate patient. Nasogastric tube in place producing some bloody secretions. Objective - Constitutional Vitals: Vital Signs - 12hr 11/12/20 11/12/20 11/12/20 02:00 03:00 04:00 Temperature 99 F Pulse Rate 98 H 96 H 93 H Pulse Rate [ 94 H From Monitor] Respiratory 20 20 20 Rate Blood Pressure 125/58 118/58 117/57 O2 Sat by Pulse 98 96 99 Oximetry 11/12/20 11/12/20 11/12/20 04:43 05:00 06:00 Temperature Pulse Rate 96 H 93 H 97 H Pulse Rate [ From Monitor] Respiratory 20 21 Rate Blood Pressure 120/60 123/57 132/62 O2 Sat by Pulse 97 98 98 Oximetry 11/12/20 11/12/20 11/12/20 07:00 07:59 08:00 Temperature 99.4 F Pulse Rate 89 101 H 104 H Pulse Rate [ 105 H From Monitor] Respiratory 20 19 Rate Blood Pressure 91/40 135/65 135/65 O2 Sat by Pulse 98 99 Oximetry 11/12/20 11/12/20 11/12/20 09:00 10:00 11:00 Temperature Pulse Rate 99 H 102 H 95 H Pulse Rate [ From Monitor] Respiratory 20 12 11 L Rate Blood Pressure 130/57 129/55 137/64 O2 Sat by Pulse 98 97 97 Oximetry 11/12/20 11/12/20 11/12/20 11:51 12:00 12:02 Temperature 99.6 F Pulse Rate 94 H 96 H Pulse Rate [ From Monitor] Respiratory 14 14 Rate Blood Pressure 143/63 147/75 O2 Sat by Pulse 96 97 96 Oximetry 11/12/20 11/12/20 11/12/20 12:11 12:21 12:30 Temperature 99.3 F Pulse Rate 94 H 91 H 93 H Pulse Rate [ From Monitor] Respiratory 14 12 11 L Rate Blood Pressure 121/48 138/70 135/65 O2 Sat by Pulse 97 96 96 Oximetry General appearance: Present: other (Intubated) - EENT ENT: other (Intubated) - Respiratory Respiratory effort: other (Intubated) Extremities: normal temperature, normal color Extremity abnormal: other (Intubated) - Gastrointestinal General gastrointestinal: Present: soft, other (Intubated) - Psychiatric Psychiatric: other (Intubated, somnolent/sedated) - Labs CBC & Chem 7: 11/12/20 12:34 11/12/20 04:26 Labs: Abnormal lab results 11/09/20 11/10/20 11/11/20 Range/Units 17:24 21:13 14:40 WBC (4.5-11.0) K/mm3 RBC (3.65-5.03) M/mm3 Hgb (10.1-14.3) gm/dl Hct (30.3-42.9) % PT (12.2-14.9) Sec. INR (0.87-1.13) APTT (24.2-36.6) Sec. ABG pH 7.297 L (7.320-7.450) ABG Hemoglobin 7.3 L (12.0-17.5) ABG Sodium 135.6 L (136.0-145.0) mmol/L ABG Chloride 111.0 H (98-107) mmol/L ABG Glucose 153 H (65-95) mg/dL Chloride (98-107) mmol/L Carbon Dioxide (22-30) mmol/L BUN (7-17) mg/dL Creatinine (0.6-1.2) mg/dL Glucose (65-100) mg/dL POC Glucose (70-105) mg/dL Lactic Acid 2.70 H* (0.7-2.0) mmol/L Calcium (8.4-10.2) mg/dL Arterial Blood Glucose 153 H (65-95) mg/dL Arterial Blood Ionized Calcium (4.6-5.3) mg/dL Crossmatch See Detail 11/11/20 11/11/20 11/11/20 Range/Units 17:06 21:00 23:20 WBC (4.5-11.0) K/mm3 RBC (3.65-5.03) M/mm3 Hgb 7.1 L (10.1-14.3) gm/dl Hct 20.9 L (30.3-42.9) % PT (12.2-14.9) Sec. INR (0.87-1.13) APTT (24.2-36.6) Sec. ABG pH 7.287 L (7.320-7.450) ABG Hemoglobin 7.5 L (12.0-17.5) ABG Sodium 134.1 L (136.0-145.0) mmol/L ABG Chloride 110.0 H (98-107) mmol/L ABG Glucose 141 H (65-95) mg/dL Chloride (98-107) mmol/L Carbon Dioxide (22-30) mmol/L BUN (7-17) mg/dL Creatinine (0.6-1.2) mg/dL Glucose (65-100) mg/dL POC Glucose 157 H (70-105) mg/dL Lactic Acid (0.7-2.0) mmol/L Calcium (8.4-10.2) mg/dL Arterial Blood Glucose 141 H (65-95) mg/dL Arterial Blood Ionized Calcium 4.2 L (4.6-5.3) mg/dL Crossmatch 11/11/20 11/12/20 11/12/20 Range/Units 23:30 04:26 04:26 WBC 16.8 H (4.5-11.0) K/mm3 RBC 2.25 L (3.65-5.03) M/mm3 Hgb 6.8 L (10.1-14.3) gm/dl Hct 20.5 L (30.3-42.9) % PT (12.2-14.9) Sec. INR (0.87-1.13) APTT (24.2-36.6) Sec. ABG pH (7.320-7.450) ABG Hemoglobin (12.0-17.5) ABG Sodium (136.0-145.0) mmol/L ABG Chloride (98-107) mmol/L ABG Glucose (65-95) mg/dL Chloride 110.1 H (98-107) mmol/L Carbon Dioxide 18 L (22-30) mmol/L BUN 25 H (7-17) mg/dL Creatinine 2.4 H (0.6-1.2) mg/dL Glucose 146 H (65-100) mg/dL POC Glucose 127 H (70-105) mg/dL Lactic Acid (0.7-2.0) mmol/L Calcium 7.4 L (8.4-10.2) mg/dL Arterial Blood Glucose (65-95) mg/dL Arterial Blood Ionized Calcium (4.6-5.3) mg/dL Crossmatch 11/12/20 11/12/20 11/12/20 Range/Units 04:26 06:01 12:02 WBC (4.5-11.0) K/mm3 RBC (3.65-5.03) M/mm3 Hgb (10.1-14.3) gm/dl Hct (30.3-42.9) % PT 17.6 H (12.2-14.9) Sec. INR 1.40 H (0.87-1.13) APTT 162.1 H* (24.2-36.6) Sec. ABG pH (7.320-7.450) ABG Hemoglobin (12.0-17.5) ABG Sodium (136.0-145.0) mmol/L ABG Chloride (98-107) mmol/L ABG Glucose (65-95) mg/dL Chloride (98-107) mmol/L Carbon Dioxide (22-30) mmol/L BUN (7-17) mg/dL Creatinine (0.6-1.2) mg/dL Glucose (65-100) mg/dL POC Glucose 134 H 131 H (70-105) mg/dL Lactic Acid (0.7-2.0) mmol/L Calcium (8.4-10.2) mg/dL Arterial Blood Glucose (65-95) mg/dL Arterial Blood Ionized Calcium (4.6-5.3) mg/dL Crossmatch 11/12/20 11/12/20 Range/Units 12:05 12:34 WBC (4.5-11.0) K/mm3 RBC (3.65-5.03) M/mm3 Hgb 6.8 L (10.1-14.3) gm/dl Hct 20.3 L (30.3-42.9) % PT (12.2-14.9) Sec. INR (0.87-1.13) APTT (24.2-36.6) Sec. ABG pH 7.297 L (7.320-7.450) ABG Hemoglobin 7.3 L (12.0-17.5) ABG Sodium 135.6 L (136.0-145.0) mmol/L ABG Chloride 111.0 H (98-107) mmol/L ABG Glucose 153 H (65-95) mg/dL Chloride (98-107) mmol/L Carbon Dioxide (22-30) mmol/L BUN (7-17) mg/dL Creatinine (0.6-1.2) mg/dL Glucose (65-100) mg/dL POC Glucose (70-105) mg/dL Lactic Acid (0.7-2.0) mmol/L Calcium (8.4-10.2) mg/dL Arterial Blood Glucose 153 H (65-95) mg/dL Arterial Blood Ionized Calcium (4.6-5.3) mg/dL Crossmatch Medications & Allergies - Medications Allergies/Adverse Reactions: Allergies No Known Allergies Allergy (Verified 11/09/20 17:19) Active Medications: Generic Name Dose Route Start Last Admin Trade Name Freq PRN Reason Stop Dose Admin Acetaminophen 650 mg 11/09/20 23:07 Acetaminophen 650 Mg Rect Supp VT Q6H PRN Pain MILD(1-3)/Fever >100.5/REYES Acetaminophen 650 mg 11/09/20 23:59 Acetaminophen 325 Mg Tab PO Q6H PRN Pain, Mild (1-3) Hydrocodone Bitart/Acetaminophen 2 each 11/09/20 23:59 Hydrocodone/Acetaminophen 5-325 Mg Tab PO Q6H PRN Pain, Moderate (4-6) Lipase/Protease/Amylase 1 each 11/11/20 17:17 Lipase 10,500/Protease 25,000/Amylase 43,750 (Units) Dr Cap FEEDTUBE PRN PRN For Clogged Feeding Tube Dextrose 50 ml 11/11/20 11:10 Dextrose 50% In Water (25gm) 50 Ml Syringe IV Q30MIN PRN Hypoglycemia Protocol Fentanyl 50 mcg 11/09/20 22:37 Fentanyl 100 Mcg/2 Ml Inj IV Q10MIN PRN ANALGESIA Hydralazine HCl 10 mg 11/10/20 16:49 Hydralazine 20 Mg/1 Ml Inj IV Q6H PRN Blood Pressure Hydrophilic Ointment 1 applic 11/09/20 17:08 Lip Therapy Vaseline TP Q2H PRN Dry Lips Propofol 1,000 mg in 100 mls @ 2.245 mls/hr 11/09/20 18:00 11/11/20 18:35 Diprivan 10 Mg/Ml IV 6 mcg/kg/min TITR MELONY 2.694 mls/hr Administration Protocol 5 MCG/KG/MIN NORepinephrine/NS 8 MG-250 ML 8 mg in 250 mls @ 3.75 mls/hr 11/09/20 18:00 11/12/20 06:12 Norepinephrine/Ns 8 Mg-250 Ml (Double Conc) IV 24 mcg/min TITRATE MELONY 45 mls/hr Administration Protocol 2 MCG/MIN Fentanyl Citrate 2,000 mcg in 100 mls @ 11.226 mls/hr 11/09/20 23:00 11/11/20 18:37 Fentanyl Drip Premix IV 1 mcg/kg/hr TITR MELONY 3.742 mls/hr Administration Protocol 3 MCG/KG/HR Ceftriaxone Sodium 2 gm in 100 mls @ 200 mls/hr 11/09/20 23:45 11/12/20 11:55 Rocephin/Ns 2 Gm/100 Ml IV 11/13/20 10:29 200 mls/hr Q24HR MELONY Administration Protocol Azithromycin 500 mg in 250 mls @ 250 mls/hr 11/09/20 23:45 11/12/20 11:55 Zithromax/Ns IV 11/13/20 10:59 250 mls/hr Q24HR MELONY Administration Protocol Heparin Sodium/Sodium Chloride 25,000 unit in 500 mls @ 24 mls/hr 11/10/20 12:00 11/11/20 21:13 Heparin/ 0.45% Nacl-25,000 Unit/500 Ml IV 1,000 units/hr TITR MELONY 20 mls/hr Administration Protocol 1,200 UNITS/HR Sodium Chloride 1,000 mls @ 100 mls/hr 11/11/20 15:45 11/12/20 01:26 Nacl 0.9% 1000 Ml IV 11/13/20 06:00 100 mls/hr DIRECT MELONY Administration Sodium Chloride 500 mls @ 0 mls/hr 11/12/20 09:06 Nacl 0.9% 500 Ml IV 11/12/20 23:59 ONCE NR As Directed Insulin Human Regular 0 units 11/11/20 12:00 11/12/20 12:12 Insulin Regular, Human 100 Units/1 Ml SUB-Q Not Given Q6H MELONY Protocol Magnesium Hydroxide 30 ml 11/09/20 23:07 Magnesium Hydroxide (Mom) Oral Liqd Udc PO Q4H PRN Constipation Multi-Ingred Cream/Lotion/Oil/Oint 1 applic 11/09/20 17:08 Mineral Oil/Petrolatum, White Ophth Oint 3.5 Gm OU Q4H PRN Dry Eye(s) Ondansetron HCl 4 mg 11/09/20 23:07 Ondansetron 4 Mg/2 Ml Inj IV Q8H PRN Nausea And Vomiting Pantoprazole Sodium 40 mg 11/11/20 22:00 11/12/20 11:54 Pantoprazole 40 Mg Inj IV 40 mg BID MELONY Administration Senna/Docusate Sodium 1 tab 11/09/20 22:00 11/12/20 12:12 Sennosides/Docusate Sodium 8.6/50 Mg Tab FEEDTUBE Not Given BID MELONY Simple Syrup 15 ml 11/11/20 17:17 Simple Syrup 15 Ml FEEDTUBE PRN PRN Hypoglycemia Simple Syrup 30 ml 11/11/20 17:17 Simple Syrup 15 Ml FEEDTUBE PRN PRN Hypoglycemia Sodium Bicarbonate 325 mg 11/11/20 17:17 Sodium Bicarbonate 325 Mg Tab FEEDTUBE PRN PRN For Clogged Feeding Tube Sodium Chloride 10 ml 11/10/20 10:00 11/12/20 11:56 Sodium Chloride 0.9% 10 Ml Flush Syringe IV 10 ml BID MELONY Administration Sodium Chloride 10 ml 11/09/20 23:07 Sodium Chloride 0.9% 10 Ml Flush Syringe IV PRN PRN LINE FLUSH HEART Score - HEART Score Troponin: Troponin T 0.873 ng/mL (0.00-0.029) H* D 11/09/20 23:05
--- NOTE | 2020-11-12 14:26 | Progress Note ---
Assessment and Plan 84-year-old female with hypertension obesity suffered a cardiac arrest secondary to large pulmonary embolism with RV dysfunction and failure with a non-ST elevation FL hypotension and acute renal sufficiency Acute respiratory failure with hypoxia * Patient intubated * Pulmonology is following Non-STEMI (non-ST elevated myocardial infarction) Acute pulmonary embolism with acute cor pulmonale Atrial fibrillation * Patient currently on pressors( levo) * Anticoagulated with Heparin gtt * Patient currently sinus rhythm * Echo 11/10/2020-EF 50 to 55%, right ventricular systolic function is normal, right ventricle is mildly dilated, left atrium not well visualized, mild mitral regurgitation, moderate pulmonary hypertension Acute kidney injury * Nephrology currently following Anemia * GI following * Patient recieivng 1 unit of PRBCs Plan: Stopped dobutamine. Recommend weaning pressors as tolorated. Will continue to follow Patient seen in conjunction with Dr. Gray who agrees with this plan of care. 30min of critical care time spent in the coordination of care for this patient - Patient Problems (1) Acute kidney injury Current Visit: Yes Status: Acute (2) Acute pulmonary embolism with acute cor pulmonale Current Visit: Yes Status: Acute Qualifiers: Pulmonary embolism type: saddle Qualified Code(s): I26.02 - Saddle embolus of pulmonary artery with acute cor pulmonale (3) Acute respiratory failure with hypoxia Current Visit: Yes Status: Acute (4) Atrial fibrillation Current Visit: Yes Status: Acute Qualifiers: Atrial fibrillation type: persistent (not longstanding) Qualified Code(s): I48.19 - Other persistent atrial fibrillation; I48.1 - Persistent atrial fibrillation (5) Cardiopulmonary arrest Current Visit: Yes Status: Acute (6) Hypokalemia Current Visit: Yes Status: Acute (7) Non-STEMI (non-ST elevated myocardial infarction) Current Visit: Yes Status: Acute (8) RBBB Current Visit: Yes Status: Acute (9) Upper GI hemorrhage Current Visit: Yes Status: Acute Subjective Date of service: 11/12/20 Principal diagnosis: Ac. hypoxemic resp failure; P.E.; PNA; Cardiac arrest; TYLER; Shock Interval history: Patient lying in bed intubated. Sinus tach 100s on monitor Objective Vital Signs Temp Pulse Pulse Resp BP Pulse Ox 11/12/20 14:11 99 H 14 159/74 97 11/12/20 14:00 93 H 12 159/74 97 11/12/20 13:51 95 H 12 126/61 98 11/12/20 13:41 97 H 14 137/66 97 11/12/20 13:30 96 H 14 151/73 96 11/12/20 13:21 96 H 13 154/73 97 11/12/20 13:11 97 H 11 L 145/70 98 11/12/20 13:00 100 H 11 L 145/70 97 11/12/20 12:51 96 H 11 L 137/66 97 11/12/20 12:40 95 H 12 138/71 96 11/12/20 12:30 99.3 F 93 H 11 L 135/65 96 11/12/20 12:21 91 H 12 138/70 96 11/12/20 12:11 94 H 14 121/48 97 11/12/20 12:02 96 11/12/20 12:00 99.6 F 96 H 14 147/75 97 11/12/20 11:51 94 H 14 143/63 96 11/12/20 11:00 95 H 11 L 137/64 97 11/12/20 10:00 102 H 12 129/55 97 11/12/20 09:00 99 H 20 130/57 98 11/12/20 08:00 99.4 F 104 H 105 H 19 135/65 99 11/12/20 07:59 101 H 135/65 98 11/12/20 07:00 89 20 91/40 11/12/20 06:00 97 H 21 132/62 98 11/12/20 05:00 93 H 20 123/57 98 11/12/20 04:43 96 H 120/60 97 11/12/20 04:00 99 F 93 H 94 H 20 117/57 99 11/12/20 03:00 96 H 20 118/58 96 11/12/20 02:00 98 H 20 125/58 98 11/12/20 01:00 102 H 20 125/59 99 11/12/20 00:12 102 H 119/55 99 11/12/20 00:00 97 H 95 H 21 117/54 100 11/11/20 23:00 100 H 18 114/57 98 11/11/20 22:00 108 H 20 124/62 11/11/20 21:00 96 H 20 110/47 100 11/11/20 20:16 99 H 105/46 100 11/11/20 20:00 98.1 F 98 H 90 20 105/47 99 11/11/20 19:00 98 H 20 106/48 99 11/11/20 18:01 91 H 20 105/45 100 11/11/20 18:00 90 20 105/45 100 11/11/20 17:00 92 H 20 103/42 100 11/11/20 16:36 96 H 104/40 100 11/11/20 16:00 99.9 F H 92 H 88 20 100/43 100 11/11/20 15:00 94 H 20 97/46 100 - Physical Examination General: Other (patient intubated) HEENT: Positive: PERRL Neck: Positive: neck supple Cardiac: Positive: Reg Rate and Rhythm Lungs: Positive: Ventilated Respirations Neuro: Positive: Other (patient intubated ) Abdomen: Positive: Soft Skin: Negative: Rash, Suspicious Lesions, Ulceration Extremities: Present: normal. Absent: edema - Labs and Meds Coagulation 11/12/20 Range/Units 04:26 PT 17.6 H (12.2-14.9) Sec. INR 1.40 H (0.87-1.13) APTT 162.1 H* (24.2-36.6) Sec. CBC 11/11/20 11/12/20 11/12/20 Range/Units 23:20 04:26 12:34 WBC 16.8 H (4.5-11.0) K/mm3 RBC 2.25 L (3.65-5.03) M/mm3 Hgb 7.1 L 6.8 L 6.8 L (10.1-14.3) gm/dl Hct 20.9 L 20.5 L 20.3 L (30.3-42.9) % Plt Count 148 (140-440) K/mm3 Comprehensive Metabolic Panel 11/12/20 Range/Units 04:26 Sodium 140 (137-145) mmol/L Potassium 4.1 (3.6-5.0) mmol/L Chloride 110.1 H (98-107) mmol/L Carbon Dioxide 18 L (22-30) mmol/L BUN 25 H (7-17) mg/dL Creatinine 2.4 H (0.6-1.2) mg/dL Glucose 146 H (65-100) mg/dL Calcium 7.4 L (8.4-10.2) mg/dL - Imaging and Cardiology EKG: report reviewed Echo: report reviewed - Telemetry EKG Rhythm: Sinus Rhythm - EKG Sinus rhythms and dysrhythmias: sinus rhythm - Allied health notes Allied health notes reviewed: nursing
[2020-11-12 15:40] LABS: Hepatitis C Virus Antibody Nonreactive (NonReactive)
--- NOTE | 2020-11-12 16:03 | Vascular Lab Report ---
DUPLEX DOPPLER LOWER EXTREMITY VEINS, BILATERAL INDICATION / CLINICAL INFORMATION: dvt. TECHNIQUE: Duplex doppler imaging was performed through the veins of both lower extremities using jovany ous compression and other maneuvers. COMPARISON: None available. FINDINGS: RIGHT COMMON FEMORAL VEIN: Negative. RIGHT FEMORAL VEIN: Negative. RIGHT POPLITEAL VEIN: Negative. RIGHT CALF VEINS: Negative. LEFT COMMON FEMORAL VEIN: Negative. LEFT FEMORAL VEIN: Negative. LEFT POPLITEAL VEIN: Negative. LEFT CALF VEINS: Near occlusive thrombus within the peroneal and posterior tibial veins. ADDITIONAL FINDINGS: Left Logan's cyst measuring 2.5 x 1.4 cm. IMPRESSION: 1. Acute, near occlusive DVT within the left peroneal and posterior tibial veins. 2. Left Logan's cyst, as above. The results were communicated by the supervisor word processing to GERRY Baird at 1443. Scribed by: Manisha Lee RDMS Jillian Scribed: 11/12/2020 2:28 PM I have reviewed the images, agree with this report, and edited this report as needed. Signer Name: William Caldwell MD Signed: 11/12/2020 3:59 PM Workstation Name: [id number]
[2020-11-12] MEDS: HEPARIN/ 0.45% NACL DRIP 25,000 UNIT/500 ML BAG IV SCH (21:33)
[2020-11-13] MEDS: fentaNYL DRIP Premix 2,000 MCG/100 ML BAG IV SCH (00:04)
[2020-11-13] MEDS: SODIUM CHLORIDE 0.9% 1000 ML 1,000 ML IV SCH (01:30)
[2020-11-13 02:22] LABS: Basophils # (Auto) 0.1 K/mm3 (0.0-0.1); Basophils % (Auto) 0.7 % (0.0-1.8); Eosinophils # (Auto) 0.2 K/mm3 (0.0-0.4); Eosinophils % (Auto) 1.5 % (0.0-4.3); Hematocrit 21.3 % (30.3-42.9); Hemoglobin 7.1 gm/dl (10.1-14.3); Lymphocytes # (Auto) 2.4 K/mm3 (1.2-5.4); Lymphocytes % (Auto) 15.4 % (13.4-35.0); Mean Corpuscular HGB Conc 33 % (30-34); Mean Corpuscular Volume 90 fl (79-97); Monocytes # (Auto) 1.4 K/mm3 (0.0-0.8); Monocytes % (Auto) 8.9 % (0.0-7.3); Platelet Count 142 K/mm3 (140-440); Red Blood Count 2.38 M/mm3 (3.65-5.03); Red Cell Distribution Width 15.2 % (13.2-15.2)
[2020-11-13 02:38] LABS: Calcium 7.7 mg/dL (8.4-10.2)
--- NOTE | 2020-11-13 04:00 | XRay Report ---
CHEST 1 VIEW INDICATION / CLINICAL INFORMATION: follow up respiratory failure. FINDINGS: SUPPORT DEVICES: Left arm PICC line terminates near the SVC/right atrial junction. Otherwise, no sign ificant change from yesterday's exam. HEART / MEDIASTINUM: No significant abnormality. LUNGS / PLEURA: Ill-defined patchy airspace disease within both lower lungs. No pneumothorax. Signer Name: Leobardo Holloway MD Signed: 11/13/2020 3:56 AM Workstation Name: [id number]
[2020-11-13] MEDS: INSULIN REGULAR, HUMAN 100 UNITS/1 ML SUB-Q SCH ×4 (06:50→18:31)
[2020-11-13 08:02] LABS: Hematocrit 23.3 % (30.3-42.9); Hemoglobin 7.7 gm/dl (10.1-14.3)
--- NOTE | 2020-11-13 09:12 | Progress Note ---
Assessment and Plan - Patient Problems (1) Acute kidney injury Current Visit: Yes Status: Acute Plan to address problem: Likely pre-renal injury in the setting of acute b/l PE with cor pulmonale and right sided heart failure. Underwent emergent CTA with contrast exposure which can also lead to further renal injury. Cont IVF with NS + 20 meq KCl, along with vasopressor support as needed to maintain MAP >65 mmHg, Avoid nephrotoxins. pt is maintaining good urine output, renal parameters stabillizing. No acute indication for renal replacement therapy at present. Renal US showed no evidence of obstructive uropathy, b/l echogenic kidneys seen. Will follow closely (2) Acute pulmonary embolism with acute cor pulmonale Current Visit: Yes Status: Acute Qualifiers: Pulmonary embolism type: saddle Qualified Code(s): I26.02 - Saddle embolus of pulmonary artery with acute cor pulmonale Plan to address problem: s/p pulmonary angiography and placement of b/l thrombolytics catheter placement by vascular surgery. Follow up further recommendations from cardiology. Unclear etiology of b/l PE. (3) Cardiopulmonary arrest Current Visit: Yes Status: Acute Plan to address problem: On multiple pressor support. Intubated, sedated. Further recommendations per cardiology. (4) Hypokalemia Current Visit: Yes Status: Acute Plan to address problem: normalized with IV KCl supplementation Subjective Date of service: 11/13/20 Principal diagnosis: Ac. hypoxemic resp failure; P.E.; PNA; Cardiac arrest; TYLER; Shock Interval history: Pt remains intubated, sedated. pt with good urine output, non-oliguric. pt is off vasopressors Objective - Vital Signs Vital signs: Vital Signs - 12hr 11/12/20 11/12/20 11/12/20 21:42 22:00 23:00 Temperature Pulse Rate 82 78 Respiratory 20 21 20 Rate Blood Pressure 131/67 137/68 O2 Sat by Pulse 99 100 Oximetry 11/12/20 11/12/20 11/12/20 23:44 23:48 23:57 Temperature Pulse Rate 79 89 85 Respiratory 20 11 L Rate Blood Pressure 136/70 133/68 O2 Sat by Pulse 99 99 99 Oximetry 11/13/20 11/13/20 11/13/20 00:00 00:01 00:15 Temperature 99.0 F Pulse Rate 82 78 78 Respiratory 20 19 20 Rate Blood Pressure 126/57 126/57 113/54 O2 Sat by Pulse 99 99 100 Oximetry 11/13/20 11/13/20 11/13/20 00:30 00:45 01:00 Temperature Pulse Rate 78 77 79 Respiratory 20 21 20 Rate Blood Pressure 112/55 106/59 119/55 O2 Sat by Pulse 100 100 100 Oximetry 11/13/20 11/13/20 11/13/20 01:15 01:30 01:45 Temperature Pulse Rate 79 80 79 Respiratory 20 20 20 Rate Blood Pressure 111/63 125/57 115/56 O2 Sat by Pulse 100 100 100 Oximetry 11/13/20 11/13/20 11/13/20 02:00 02:15 02:30 Temperature Pulse Rate 81 88 80 Respiratory 21 20 20 Rate Blood Pressure 120/58 129/62 119/57 O2 Sat by Pulse 100 100 100 Oximetry 11/13/20 11/13/20 11/13/20 02:45 03:00 03:15 Temperature Pulse Rate 81 79 87 Respiratory 20 20 20 Rate Blood Pressure 118/56 108/54 102/50 O2 Sat by Pulse 100 100 100 Oximetry 11/13/20 11/13/20 11/13/20 03:31 03:45 04:00 Temperature 99.0 F Pulse Rate 74 87 77 Respiratory 20 20 20 Rate Blood Pressure 88/31 115/59 111/48 O2 Sat by Pulse 100 100 100 Oximetry 11/13/20 11/13/20 11/13/20 04:05 04:15 04:25 Temperature Pulse Rate 77 80 Respiratory 20 20 Rate Blood Pressure 105/52 O2 Sat by Pulse 100 99 99 Oximetry 11/13/20 11/13/20 11/13/20 04:30 04:45 05:00 Temperature Pulse Rate 80 89 77 Respiratory 20 15 16 Rate Blood Pressure 97/50 97/50 116/56 O2 Sat by Pulse 99 97 98 Oximetry 11/13/20 11/13/20 11/13/20 05:15 05:31 05:45 Temperature Pulse Rate 79 92 H 107 H Respiratory 20 18 19 Rate Blood Pressure 111/60 130/71 130/71 O2 Sat by Pulse 100 100 97 Oximetry 11/13/20 11/13/20 11/13/20 06:00 06:15 06:30 Temperature Pulse Rate 99 H 92 H 86 Respiratory 20 20 20 Rate Blood Pressure 142/71 135/58 123/54 O2 Sat by Pulse 97 98 99 Oximetry 11/13/20 11/13/20 11/13/20 06:45 07:00 07:15 Temperature Pulse Rate 92 H 87 77 Respiratory 17 20 20 Rate Blood Pressure 128/59 126/57 122/54 O2 Sat by Pulse 100 99 99 Oximetry 11/13/20 11/13/20 11/13/20 07:30 07:45 08:00 Temperature 99.0 F Pulse Rate 80 78 76 Respiratory 20 20 20 Rate Blood Pressure 126/63 124/57 121/56 O2 Sat by Pulse 100 99 100 Oximetry 11/13/20 11/13/20 11/13/20 08:15 08:31 08:36 Temperature Pulse Rate 76 75 77 Respiratory 20 20 Rate Blood Pressure 121/56 124/58 124/58 O2 Sat by Pulse 100 100 100 Oximetry 11/13/20 11/13/20 08:45 09:00 Temperature Pulse Rate 81 80 Respiratory 20 20 Rate Blood Pressure 126/60 128/57 O2 Sat by Pulse 100 Oximetry - General Appearance General appearance: well-developed, appears stated age, sedated on ventilator, intubated EENT: ATNC, mucous membranes moist Neck: no JVD Respiratory: Present: Clear to Ascultation Cardiology: regular, S1S2 Gastrointestinal: normoactive bowel sounds Integumentary: no rash Neurologic: no focal deficit - Lab 11/13/20 07:50 11/13/20 02:11 Most recent lab results ABG pH 7.345 (7.320-7.450) 11/13/20 04:03 ABG pCO2 29.4 mm Hg 11/11/20 09:45 ABG pO2 172.4 mm Hg (80.0-90.0) H 11/11/20 09:45 ABG HCO3 16.7 mmol/L (20.0-26.0) L 11/11/20 09:45 ABG O2 Saturation 98.8 (0-100) 11/13/20 04:03 Calcium 7.7 mg/dL (8.4-10.2) L 11/13/20 02:11 Urine Creatinine 80.9 mg/dL (0.1-20.0) H 11/10/20 11:06 Urine Sodium 48 mmol/L 11/10/20 11:06 Medications & Allergies - Medications Allergies/Adverse Reactions: Allergies No Known Allergies Allergy (Verified 11/09/20 17:19) Active Medications: Generic Name Dose Route Start Last Admin Trade Name Freq PRN Reason Stop Dose Admin Acetaminophen 650 mg 11/09/20 23:07 Acetaminophen 650 Mg Rect Supp SC Q6H PRN Pain MILD(1-3)/Fever >100.5/REYES Acetaminophen 650 mg 11/09/20 23:59 Acetaminophen 325 Mg Tab PO Q6H PRN Pain, Mild (1-3) Hydrocodone Bitart/Acetaminophen 2 each 11/09/20 23:59 Hydrocodone/Acetaminophen 5-325 Mg Tab PO Q6H PRN Pain, Moderate (4-6) Lipase/Protease/Amylase 1 each 11/11/20 17:17 Lipase 10,500/Protease 25,000/Amylase 43,750 (Units) Dr Cap FEEDTUBE PRN PRN For Clogged Feeding Tube Dextrose 50 ml 11/11/20 11:10 Dextrose 50% In Water (25gm) 50 Ml Syringe IV Q30MIN PRN Hypoglycemia Protocol Fentanyl 50 mcg 11/09/20 22:37 11/12/20 21:42 Fentanyl 100 Mcg/2 Ml Inj IV 50 mcg Q10MIN PRN Administration ANALGESIA Hydralazine HCl 10 mg 11/10/20 16:49 Hydralazine 20 Mg/1 Ml Inj IV Q6H PRN Blood Pressure Hydrophilic Ointment 1 applic 11/09/20 17:08 Lip Therapy Vaseline TP Q2H PRN Dry Lips Propofol 1,000 mg in 100 mls @ 2.245 mls/hr 11/09/20 18:00 11/12/20 18:55 Diprivan 10 Mg/Ml IV 0 mcg/kg/min TITR MELONY 0 mls/hr Titration Protocol 5 MCG/KG/MIN NORepinephrine/NS 8 MG-250 ML 8 mg in 250 mls @ 3.75 mls/hr 11/09/20 18:00 11/12/20 23:59 Norepinephrine/Ns 8 Mg-250 Ml (Double Conc) IV 0 mcg/min TITRATE MELONY 0 mls/hr Titration Protocol 2 MCG/MIN Fentanyl Citrate 2,000 mcg in 100 mls @ 11.226 mls/hr 11/09/20 23:00 11/13/20 08:39 Fentanyl Drip Premix IV 0 mcg/kg/hr TITR MELONY 0 mls/hr Titration Protocol 3 MCG/KG/HR Ceftriaxone Sodium 2 gm in 100 mls @ 200 mls/hr 11/09/20 23:45 11/12/20 12:50 Rocephin/Ns 2 Gm/100 Ml IV 11/13/20 10:29 Infused Q24HR MELOYN Infusion Protocol Azithromycin 500 mg in 250 mls @ 250 mls/hr 11/09/20 23:45 11/12/20 13:50 Zithromax/Ns IV 11/13/20 10:59 Infused Q24HR MELONY Infusion Protocol Heparin Sodium/Sodium Chloride 25,000 unit in 500 mls @ 24 mls/hr 11/10/20 12:00 11/13/20 04:18 Heparin/ 0.45% Nacl-25,000 Unit/500 Ml IV 800 units/hr TITR MELONY 16 mls/hr Titration Protocol 1,200 UNITS/HR Insulin Human Regular 0 units 11/11/20 12:00 11/13/20 06:50 Insulin Regular, Human 100 Units/1 Ml SUB-Q Not Given Q6H MELONY Protocol Magnesium Hydroxide 30 ml 11/09/20 23:07 Magnesium Hydroxide (Mom) Oral Liqd Udc PO Q4H PRN Constipation Multi-Ingred Cream/Lotion/Oil/Oint 1 applic 11/09/20 17:08 Mineral Oil/Petrolatum, White Ophth Oint 3.5 Gm OU Q4H PRN Dry Eye(s) Ondansetron HCl 4 mg 11/09/20 23:07 Ondansetron 4 Mg/2 Ml Inj IV Q8H PRN Nausea And Vomiting Pantoprazole Sodium 40 mg 11/11/20 22:00 11/12/20 21:31 Pantoprazole 40 Mg Inj IV 40 mg BID MELONY Administration Senna/Docusate Sodium 1 tab 11/09/20 22:00 11/12/20 21:31 Sennosides/Docusate Sodium 8.6/50 Mg Tab FEEDTUBE 1 tab BID MELONY Administration Simple Syrup 15 ml 11/11/20 17:17 Simple Syrup 15 Ml FEEDTUBE PRN PRN Hypoglycemia Simple Syrup 30 ml 11/11/20 17:17 Simple Syrup 15 Ml FEEDTUBE PRN PRN Hypoglycemia Sodium Bicarbonate 325 mg 11/11/20 17:17 Sodium Bicarbonate 325 Mg Tab FEEDTUBE PRN PRN For Clogged Feeding Tube Sodium Chloride 10 ml 11/10/20 10:00 11/12/20 21:32 Sodium Chloride 0.9% 10 Ml Flush Syringe IV 10 ml BID MELONY Administration Sodium Chloride 10 ml 11/09/20 23:07 Sodium Chloride 0.9% 10 Ml Flush Syringe IV PRN PRN LINE FLUSH
[2020-11-13] MEDS: PANTOPRAZOLE 40 MG INJ IV SCH ×2 (09:45→21:54)
[2020-11-13] MEDS: SENNOSIDES/DOCUSATE SODIUM 8.6/50 MG TAB FEEDTUBE SCH ×2 (09:45→21:54)
[2020-11-13] MEDS: cefTRIAXone/NS 2 GM/100 ML 2 GM/100 ML BAG IV SCH (09:46)
[2020-11-13] MEDS: AZITHROMYCIN/NS 500 MG/250 ML 500 MG/250 ML BAG IV SCH (09:48)
[2020-11-13] MEDS ORDERED: SODIUM CHLORIDE 0.9% 1000 ML 1,000 ML IV SCH (10:15)
--- NOTE | 2020-11-13 12:27 | Gastroenterology Progress Note ---
Assessment and Plan Nurse at bedside confirms no melena over the last day and scant blood suctioned over last 12 hours Regarding the source of the bleed she did of note first have blood from the mouth, then have blood coming from her nares as well as the OG tube and she had not been having retching or vomiting and had not been bucking her vent. Therefore, the blood in the nostrils is less likely to be coming from a gastroesophageal source and rather is more likely to be a primary nasopharyngeal source and therefore likely bled from multiple locations from the initial supratherapeutic PTT Given the above, it is still unlikely that an endoscopy will be beneficial and would carry significant risks at this juncture and would require holding her blood thinner for at least 6 hours if not days if I end up needing to perform an intervention. Therefore, I recommend continue Protonix 40 mg IV twice daily and continue close monitoring and continue to avoid supertherapeutic heparin levels and monitor hgb as that should contain the GI bleed, and once she is medically improved she should undergo non-emergent EGD. If she does develop severe GI bleeding then the benefits of endoscopy will increase and I will reassess for EGD. Regarding elevated liver enzymes suspect due to her severe illness. To be thorough I checked hepatitis viral serologies which were negative. Please trend LFT daily (I ordered for tomorrow AM's labs) I will continue to follow closely with you - Patient Problems (1) Upper GI hemorrhage Current Visit: Yes Status: Acute (2) Atrial fibrillation Current Visit: Yes Status: Acute Qualifiers: Atrial fibrillation type: persistent (not longstanding) Qualified Code(s): I48.19 - Other persistent atrial fibrillation; I48.1 - Persistent atrial fibrillation (3) Cardiopulmonary arrest Current Visit: Yes Status: Acute (4) Transaminitis Current Visit: Yes Status: Acute Subjective Date of service: 11/13/20 Principal diagnosis: Ac. hypoxemic resp failure; P.E.; PNA; Cardiac arrest; TYLER; Shock Interval history: Patient with improved hgb Patient again had no melena when I spoke with the nurse this am She remains intubated, scant blood in the suction canister from overnight Objective - Constitutional Vitals: Temp Pulse Resp BP Pulse Ox 99.0 F 95 H 19 131/53 100 11/13/20 08:00 11/13/20 11:30 11/13/20 11:30 11/13/20 11:30 11/13/20 11:30 General appearance: other - Respiratory Respiratory effort: other (intubated) - Gastrointestinal General gastrointestinal: Present: soft, other - Labs CBC & Chem 7: 11/13/20 07:50 11/13/20 02:11 Labs: Laboratory Results - last 24 hr 11/09/20 11/10/20 11/12/20 17:24 21:13 12:05 WBC RBC Hgb Hct MCV MCH MCHC RDW Plt Count Lymph % (Auto) [place] % (Auto) Eos % (Auto) Baso % (Auto) Lymph # (Auto) [place] # (Auto) Eos # (Auto) Baso # (Auto) Seg Neutrophils % Seg Neutrophils # Heparin Anti-Xa Level ABG pH 7.297 L 7.297 L POC ABG pCO2 39.5 39.5 POC ABG pO2 96.4 96.4 POC ABG HCO3 18.9 18.9 ABG O2 Saturation 97.1 97.1 POC ABG Base Excess -7.0 -7.0 ABG Hemoglobin 7.3 L 7.3 L ABG Oxyhemoglobin 95.7 95.7 ABG Methemoglobin 0.3 0.3 ABG Sodium 135.6 L 135.6 L ABG Potassium 4.1 4.1 ABG Chloride 111.0 H 111.0 H ABG Glucose 153 H 153 H Carboxyhemoglobin 1.1 1.1 FiO2 % 40 40 Sodium Potassium Chloride Carbon Dioxide Anion Gap BUN Creatinine Estimated GFR BUN/Creatinine Ratio Glucose POC Glucose Calcium Arterial Blood Glucose 153 H 153 H Arterial Blood Ionized Calcium Hepatitis A IgM Ab Hep Bs Antigen Hepatitis C Antibody Blood Type O POSITIVE Antibody Screen Negative Crossmatch See Detail 11/12/20 11/12/20 11/12/20 12:34 12:34 12:34 WBC RBC Hgb 6.8 L Hct 20.3 L MCV MCH MCHC RDW Plt Count Lymph % (Auto) [place] % (Auto) Eos % (Auto) Baso % (Auto) Lymph # (Auto) [place] # (Auto) Eos # (Auto) Baso # (Auto) Seg Neutrophils % Seg Neutrophils # Heparin Anti-Xa Level 0.69 ABG pH POC ABG pCO2 POC ABG pO2 POC ABG HCO3 ABG O2 Saturation POC ABG Base Excess ABG Hemoglobin ABG Oxyhemoglobin ABG Methemoglobin ABG Sodium ABG Potassium ABG Chloride ABG Glucose Carboxyhemoglobin FiO2 % Sodium Potassium Chloride Carbon Dioxide Anion Gap BUN Creatinine Estimated GFR BUN/Creatinine Ratio Glucose POC Glucose Calcium Arterial Blood Glucose Arterial Blood Ionized Calcium Hepatitis A IgM Ab Nonreactive Hep Bs Antigen Hepatitis C Antibody Nonreactive Blood Type Antibody Screen Crossmatch 11/12/20 11/12/20 11/12/20 12:34 17:26 23:49 WBC RBC Hgb Hct MCV MCH MCHC RDW Plt Count Lymph % (Auto) [place] % (Auto) Eos % (Auto) Baso % (Auto) Lymph # (Auto) [place] # (Auto) Eos # (Auto) Baso # (Auto) Seg Neutrophils % Seg Neutrophils # Heparin Anti-Xa Level ABG pH POC ABG pCO2 POC ABG pO2 POC ABG HCO3 ABG O2 Saturation POC ABG Base Excess ABG Hemoglobin ABG Oxyhemoglobin ABG Methemoglobin ABG Sodium ABG Potassium ABG Chloride ABG Glucose Carboxyhemoglobin FiO2 % Sodium Potassium Chloride Carbon Dioxide Anion Gap BUN Creatinine Estimated GFR BUN/Creatinine Ratio Glucose POC Glucose 119 H 118 H Calcium Arterial Blood Glucose Arterial Blood Ionized Calcium Hepatitis A IgM Ab Hep Bs Antigen Nonreactive Hepatitis C Antibody Blood Type Antibody Screen Crossmatch 11/13/20 11/13/20 11/13/20 02:11 02:11 02:11 WBC 15.9 H RBC 2.38 L Hgb 7.1 L Hct 21.3 L MCV 90 MCH 30 MCHC 33 RDW 15.2 Plt Count 142 Lymph % (Auto) 15.4 [place] % (Auto) 8.9 H Eos % (Auto) 1.5 Baso % (Auto) 0.7 Lymph # (Auto) 2.4 [place] # (Auto) 1.4 H Eos # (Auto) 0.2 Baso # (Auto) 0.1 Seg Neutrophils % 73.5 H Seg Neutrophils # 11.7 H Heparin Anti-Xa Level 0.36 ABG pH POC ABG pCO2 POC ABG pO2 POC ABG HCO3 ABG O2 Saturation POC ABG Base Excess ABG Hemoglobin ABG Oxyhemoglobin ABG Methemoglobin ABG Sodium ABG Potassium ABG Chloride ABG Glucose Carboxyhemoglobin FiO2 % Sodium 138 Potassium 4.1 Chloride 109.8 H Carbon Dioxide 18 L Anion Gap 14 BUN 26 H Creatinine 2.3 H Estimated GFR 24 BUN/Creatinine Ratio 11 Glucose 109 H POC Glucose Calcium 7.7 L Arterial Blood Glucose Arterial Blood Ionized Calcium Hepatitis A IgM Ab Hep Bs Antigen Hepatitis C Antibody Blood Type Antibody Screen Crossmatch 11/13/20 11/13/20 11/13/20 04:03 06:01 07:50 WBC RBC Hgb 7.7 L Hct 23.3 L MCV MCH MCHC RDW Plt Count Lymph % (Auto) [place] % (Auto) Eos % (Auto) Baso % (Auto) Lymph # (Auto) [place] # (Auto) Eos # (Auto) Baso # (Auto) Seg Neutrophils % Seg Neutrophils # Heparin Anti-Xa Level ABG pH 7.345 POC ABG pCO2 33.5 POC ABG pO2 145.7 H POC ABG HCO3 17.9 ABG O2 Saturation 98.8 POC ABG Base Excess -7.1 ABG Hemoglobin 7.2 L ABG Oxyhemoglobin 97.8 ABG Methemoglobin 0.3 ABG Sodium 135.3 L ABG Potassium 3.7 ABG Chloride 113.0 H ABG Glucose 108 H Carboxyhemoglobin 0.7 FiO2 % 40.0 Sodium Potassium Chloride Carbon Dioxide Anion Gap BUN Creatinine Estimated GFR BUN/Creatinine Ratio Glucose POC Glucose 108 H Calcium Arterial Blood Glucose 108 H Arterial Blood Ionized Calcium 4.3 L Hepatitis A IgM Ab Hep Bs Antigen Hepatitis C Antibody Blood Type Antibody Screen Crossmatch 11/13/20 11/13/20 11:07 12:00 WBC RBC Hgb Hct MCV MCH MCHC RDW Plt Count Lymph % (Auto) [place] % (Auto) Eos % (Auto) Baso % (Auto) Lymph # (Auto) [place] # (Auto) Eos # (Auto) Baso # (Auto) Seg Neutrophils % Seg Neutrophils # Heparin Anti-Xa Level 0.32 ABG pH POC ABG pCO2 POC ABG pO2 POC ABG HCO3 ABG O2 Saturation POC ABG Base Excess ABG Hemoglobin ABG Oxyhemoglobin ABG Methemoglobin ABG Sodium ABG Potassium ABG Chloride ABG Glucose Carboxyhemoglobin FiO2 % Sodium Potassium Chloride Carbon Dioxide Anion Gap BUN Creatinine Estimated GFR BUN/Creatinine Ratio Glucose POC Glucose 147 H Calcium Arterial Blood Glucose Arterial Blood Ionized Calcium Hepatitis A IgM Ab Hep Bs Antigen Hepatitis C Antibody Blood Type Antibody Screen Crossmatch
--- NOTE | 2020-11-13 13:13 | Progress Note ---
Assessment and Plan Assessment and Plan Assessment and plan: This 84-year-old female with HTN, CKD, chronic right BBB, arthritis admitted s/P cardiac arrest, pulmonary embolism , Pneumonia and GI bleed #Neuro: Acute metabolic encephalopathy -CT head completed which shows no acute intracranial abnormality, - probable meningioma along the right anterior frontal lobe -Avoid delirium - Cut down sedation as possible -Bilateral restraints for safety -Patient is awake, follows commands, positive track/focus, pupils equal round reactive -EEG is unremarkable -consider MRI brain when stable to be done with gd,-- due to the meningioma. #Cardio: S/p cardiopulmonary arrest, atrial fibrillation, acute diastolic heart failure -Cardiology consulted, appreciate recommendations -Echo 11/10/2020-EF 50 to 55%, right ventricular systolic function is normal, right ventricle is mildly dilated, left atrium not well visualized, mild mitral regurgitation, moderate pulmonary hypertension -Vasopressor support with Levophed and dopamine -Per cardiology dopamine transition to dobutamine with IV fluids -Blood pressure monitor per protocol #Respiratory: Acute hypoxic respiratory failure, acute pulmonary medicine with acute cor pulmonale -CCM consulted, appreciate recommendations -Intubated 11/09 with 7.0 at 22 at the lip -A.m. vent settings AC/PRVC rate 30, tidal volume 450, PEEP 6. 5% FiO2 -Rate reduced by CCM and repeat ABG at 2100 -See respiratory notes for titration -Serial CXR and ABGs -VAP bundle -11/11 ABG reviewed #GI: Upper GI hemorrhage, elevated LFT -GI consulted, appreciate recommendations -Protonix drip till 9 PM then will be switched to Protonix IV -Recommend Protonix 40 mg IV twice daily -Patient noted to be supratherapeutic heparin drip at the time of the consult and GI recommended titrating down heparin drip -Per GI will reassess for EGD if patient develops severe GI bleeding -BR: Senokot -24-hour net balance +1605 mL -Trend LFT #: Acute kidney injury,Severe metabolic acidosis -Nephrology consulted, appreciate recommendations -Likely prerenal injury in setting of acute bilateral pulmonary embolism with cor pulmonale and right-sided heart failure -Gentle IV hydration -Renal ultrasound showed no evidence of obstructive PE, bilateral echogenic kidneys -No indication for renal replacement at this time per nephrology -Urine electrolytes -Strict intake and output -Daily weights -Avoid nephrotoxic medications -Trend BMP #ID: Bilateral pneumonia, SIRS, lactic acidosis -Empiric antibiotics with Rocephin and azithromycin #Heme: Large bilateral segmental and subsegmental PE, thrombocytopenia, coagulopathy -Vascular surgery consulted, appreciate recommendations -S/p pulmonary angiography with placement of thrombolytic catheters -Heparin drip -Serial CBCs -Transfuse for hemoglobin less than 7 #Endo: NAD -Accucheck q6 -Avoid hypoglycemia The high probability of a clinically significant, sudden or life threatening deterioration of the [multi] system(s) required my full and direct attention, intervention and personal management. The aggregate critical care time was [60] minutes. This time is in addition to time spent performing reported procedures but includes the following: [x] Data Review and interpretation [x] Patient assessment and monitoring of vital signs [x] Documentation [x] Medication orders and management Disposition Plan: icu Total Time Spent with Patient (Minutes): 60 PLAN 1- Consider brain MRI with GD when possible 2- Ct brain showed possible meningioma right frontal area will follow as needed Subjective Date of service: 11/13/20 Principal diagnosis: Ac. hypoxemic resp failure; P.E.; PNA; Cardiac arrest; TYLER; Shock Interval history: alert follow command moves all limbs she is on slight sedation on fentanyl. EEG is unremarkable Objective - Vital Sign Vital Signs - 12hr 11/13/20 11/13/20 11/13/20 01:15 01:30 01:45 Temperature Pulse Rate 79 80 79 Respiratory 20 20 20 Rate Blood Pressure 111/63 125/57 115/56 O2 Sat by Pulse 100 100 100 Oximetry 11/13/20 11/13/20 11/13/20 02:00 02:15 02:30 Temperature Pulse Rate 81 88 80 Respiratory 21 20 20 Rate Blood Pressure 120/58 129/62 119/57 O2 Sat by Pulse 100 100 100 Oximetry 11/13/20 11/13/20 11/13/20 02:45 03:00 03:15 Temperature Pulse Rate 81 79 87 Respiratory 20 20 20 Rate Blood Pressure 118/56 108/54 102/50 O2 Sat by Pulse 100 100 100 Oximetry 11/13/20 11/13/20 11/13/20 03:31 03:45 04:00 Temperature 99.0 F Pulse Rate 74 87 77 Respiratory 20 20 20 Rate Blood Pressure 88/31 115/59 111/48 O2 Sat by Pulse 100 100 100 Oximetry 11/13/20 11/13/20 11/13/20 04:05 04:15 04:25 Temperature Pulse Rate 77 80 Respiratory 20 20 Rate Blood Pressure 105/52 O2 Sat by Pulse 100 99 99 Oximetry 11/13/20 11/13/20 11/13/20 04:30 04:45 05:00 Temperature Pulse Rate 80 89 77 Respiratory 20 15 16 Rate Blood Pressure 97/50 97/50 116/56 O2 Sat by Pulse 99 97 98 Oximetry 11/13/20 11/13/20 11/13/20 05:15 05:31 05:45 Temperature Pulse Rate 79 92 H 107 H Respiratory 20 18 19 Rate Blood Pressure 111/60 130/71 130/71 O2 Sat by Pulse 100 100 97 Oximetry 11/13/20 11/13/20 11/13/20 06:00 06:15 06:30 Temperature Pulse Rate 99 H 92 H 86 Respiratory 20 20 20 Rate Blood Pressure 142/71 135/58 123/54 O2 Sat by Pulse 97 98 99 Oximetry 11/13/20 11/13/20 11/13/20 06:45 07:00 07:15 Temperature Pulse Rate 92 H 87 77 Respiratory 17 20 20 Rate Blood Pressure 128/59 126/57 122/54 O2 Sat by Pulse 100 99 99 Oximetry 11/13/20 11/13/20 11/13/20 07:30 07:45 08:00 Temperature 99.0 F Pulse Rate 80 78 76 Respiratory 20 20 22 Rate Blood Pressure 126/63 124/57 121/56 O2 Sat by Pulse 100 99 99 Oximetry 11/13/20 11/13/20 11/13/20 08:15 08:31 08:36 Temperature Pulse Rate 76 75 77 Respiratory 20 20 Rate Blood Pressure 121/56 124/58 124/58 O2 Sat by Pulse 100 100 100 Oximetry 11/13/20 11/13/20 11/13/20 08:45 09:00 09:15 Temperature Pulse Rate 81 80 87 Respiratory 20 20 20 Rate Blood Pressure 126/60 128/57 136/59 O2 Sat by Pulse 100 100 Oximetry 11/13/20 11/13/20 11/13/20 09:30 09:45 10:00 Temperature Pulse Rate 79 82 98 H Respiratory 19 13 15 Rate Blood Pressure 125/55 134/59 149/64 O2 Sat by Pulse 100 100 100 Oximetry 11/13/20 11/13/2011/13/21 10:15 10:30 10:45 Temperature Pulse Rate 95 H 88 89 Respiratory 20 20 20 Rate Blood Pressure 146/69 130/63 127/63 O2 Sat by Pulse 99 98 99 Oximetry 11/13/20 11/13/20 11/13/20 11:00 11:15 11:30 Temperature Pulse Rate 89 88 95 H Respiratory 21 20 19 Rate Blood Pressure 130/65 128/61 131/53 O2 Sat by Pulse 100 100 100 Oximetry 11/13/20 11/13/20 11/13/20 11:45 12:00 12:15 Temperature 99.0 F Pulse Rate 90 89 82 Respiratory 11 L 21 17 Rate Blood Pressure 140/62 135/62 144/63 O2 Sat by Pulse 100 100 100 Oximetry 11/13/20 11/13/20 12:16 12:18 Temperature Pulse Rate 90 89 Respiratory Rate Blood Pressure 144/63 O2 Sat by Pulse 100 Oximetry - General Apperance Constitutional: uncomfortable, other (intubated) - EENT EENT: PERRL, mucous membranes moist - Respiratory Respiratory: chest non-tender, lungs clear, rhonchi - Cardiovascular Cardiovascular: other (AF) Extremities: no peripheral edema bilat, no clubbing, cyanosis - Gastrointestinal Gastrointestinal: normoactive bowel sounds - Integumentary Integumentary: normal - Neurologic Cranial nerve examination: anosmic, PERRL, EOMI, intact Speech examination: other (intubated) Detailed motor examination: grossly full strength in - Laboratory Findings CBC and BMP: 11/13/20 07:50 11/13/20 02:11 Abnormal Lab Findings: Abnormal Labs 11/09/20 11/09/20 11/09/20 17:24 17:24 17:24 WBC RBC 3.29 L Hgb Hct Plt Count 100 L Lymph % (Auto) 54.6 H Lewis % (Auto) Lewis # (Auto) Seg Neutrophils % 38.5 L Seg Neuts % (Manual) Lymphocytes % (Manual) Seg Neutrophils # Seg Neutrophils # Man Lymphocytes # (Manual) PT 19.9 H INR 1.64 H APTT 49.2 H Fibrinogen D-Dimer > 50289 H Heparin Anti-Xa Level ABG pH POC ABG pO2 ABG pO2 ABG HCO3 ABG O2 Saturation ABG Base Excess ABG Hemoglobin ABG Oxyhemoglobin ABG Sodium ABG Potassium ABG Chloride ABG Glucose Oxyhemoglobin Carboxyhemoglobin Sodium Potassium 2.9 L* Chloride Carbon Dioxide 13 L BUN Creatinine 1.4 H Glucose 391 H POC Glucose Lactic Acid Calcium AST ALT Lactate Dehydrogenase Total Creatine Kinase CK-MB (CK-2) 5.0 H CK-MB (CK-2) Rel Index 4.8 H Troponin T 0.263 H* C-Reactive Protein NT-Pro-B Natriuret Pep Total Protein Albumin Triglycerides 163 H HDL Cholesterol 29 L Arterial Blood Glucose Arterial Blood Ionized Calcium Urine Creatinine Urine Chloride Crossmatch 11/09/20 11/09/20 11/09/20 17:24 17:24 18:11 WBC RBC Hgb Hct Plt Count Lymph % (Auto) Lewis % (Auto) Lewis # (Auto) Seg Neutrophils % Seg Neuts % (Manual) Lymphocytes % (Manual) Seg Neutrophils # Seg Neutrophils # Man Lymphocytes # (Manual) PT INR APTT Fibrinogen D-Dimer Heparin Anti-Xa Level ABG pH POC ABG pO2 ABG pO2 ABG HCO3 ABG O2 Saturation ABG Base Excess ABG Hemoglobin ABG Oxyhemoglobin ABG Sodium ABG Potassium ABG Chloride ABG Glucose Oxyhemoglobin Carboxyhemoglobin Sodium Potassium Chloride Carbon Dioxide BUN Creatinine Glucose POC Glucose Lactic Acid 11.40 H* Calcium AST 312 H ALT 273 H Lactate Dehydrogenase Total Creatine Kinase CK-MB (CK-2) CK-MB (CK-2) Rel Index Troponin T C-Reactive Protein NT-Pro-B Natriuret Pep 1169 H Total Protein 5.2 L Albumin 2.8 L Triglycerides HDL Cholesterol Arterial Blood Glucose Arterial Blood Ionized Calcium Urine Creatinine Urine Chloride Crossmatch See Detail 11/09/20 11/09/20 11/09/20 18:21 20:07 20:07 WBC RBC Hgb Hct Plt Count Lymph % (Auto) Lewis % (Auto) Lewis # (Auto) Seg Neutrophils % Seg Neuts % (Manual) Lymphocytes % (Manual) Seg Neutrophils # Seg Neutrophils # Man Lymphocytes # (Manual) PT INR APTT Fibrinogen D-Dimer Heparin Anti-Xa Level ABG pH 7.053 L POC ABG pO2 159.6 H ABG pO2 ABG HCO3 ABG O2 Saturation ABG Base Excess ABG Hemoglobin ABG Oxyhemoglobin ABG Sodium 135.1 L ABG Potassium ABG Chloride ABG Glucose 421 H Oxyhemoglobin Carboxyhemoglobin 0.3 L Sodium Potassium Chloride Carbon Dioxide BUN Creatinine Glucose POC Glucose Lactic Acid 9.00 H* Calcium AST ALT Lactate Dehydrogenase Total Creatine Kinase 340 H CK-MB (CK-2) 14.2 H CK-MB (CK-2) Rel Index 4.1 H Troponin T 0.553 H* D C-Reactive Protein NT-Pro-B Natriuret Pep Total Protein Albumin Triglycerides HDL Cholesterol Arterial Blood Glucose 421 H Arterial Blood Ionized Calcium Urine Creatinine Urine Chloride Crossmatch 11/09/20 11/09/20 11/10/20 23:05 23:05 00:42 WBC RBC Hgb Hct Plt Count Lymph % (Auto) Lewis % (Auto) Lewis # (Auto) Seg Neutrophils % Seg Neuts % (Manual) Lymphocytes % (Manual) Seg Neutrophils # Seg Neutrophils # Man Lymphocytes # (Manual) PT 19.8 H INR 1.63 H APTT Fibrinogen 210 L D-Dimer Heparin Anti-Xa Level 0.79 H ABG pH POC ABG pO2 ABG pO2 ABG HCO3 ABG O2 Saturation ABG Base Excess ABG Hemoglobin ABG Oxyhemoglobin ABG Sodium ABG Potassium ABG Chloride ABG Glucose Oxyhemoglobin Carboxyhemoglobin Sodium Potassium Chloride Carbon Dioxide BUN Creatinine Glucose POC Glucose Lactic Acid 6.80 H* Calcium AST ALT Lactate Dehydrogenase Total Creatine Kinase 449 H CK-MB (CK-2) 18.4 H CK-MB (CK-2) Rel Index Troponin T 0.873 H* D C-Reactive Protein NT-Pro-B Natriuret Pep Total Protein Albumin Triglycerides HDL Cholesterol Arterial Blood Glucose Arterial Blood Ionized Calcium Urine Creatinine Urine Chloride Crossmatch 11/10/20 11/10/20 11/10/20 04:28 04:28 04:28 WBC RBC Hgb Hct Plt Count Lymph % (Auto) Lewis % (Auto) Lewis # (Auto) Seg Neutrophils % Seg Neuts % (Manual) Lymphocytes % (Manual) Seg Neutrophils # Seg Neutrophils # Man Lymphocytes # (Manual) PT 20.3 H INR 1.69 H APTT Fibrinogen D-Dimer > 82809 H Heparin Anti-Xa Level ABG pH POC ABG pO2 ABG pO2 ABG HCO3 ABG O2 Saturation ABG Base Excess ABG Hemoglobin ABG Oxyhemoglobin ABG Sodium ABG Potassium ABG Chloride ABG Glucose Oxyhemoglobin Carboxyhemoglobin Sodium 136 L Potassium 3.3 L Chloride Carbon Dioxide 16 L BUN 21 H Creatinine 1.8 H Glucose 376 H POC Glucose Lactic Acid Calcium AST ALT Lactate Dehydrogenase 1637 H Total Creatine Kinase CK-MB (CK-2) CK-MB (CK-2) Rel Index Troponin T C-Reactive Protein 3.50 H NT-Pro-B Natriuret Pep Total Protein Albumin Triglycerides HDL Cholesterol Arterial Blood Glucose Arterial Blood Ionized Calcium Urine Creatinine Urine Chloride Crossmatch 11/10/20 11/10/20 11/10/20 04:28 04:28 05:13 WBC 17.7 H RBC Hgb Hct Plt Count Lymph % (Auto) Lewis % (Auto) Lewis # (Auto) Seg Neutrophils % Seg Neuts % (Manual) 96.0 H Lymphocytes % (Manual) 1.0 L Seg Neutrophils # Seg Neutrophils # Man 17.0 H Lymphocytes # (Manual) 0.2 L PT INR APTT Fibrinogen D-Dimer Heparin Anti-Xa Level ABG pH 7.221 L POC ABG pO2 162.0 H ABG pO2 ABG HCO3 ABG O2 Saturation ABG Base Excess ABG Hemoglobin 11.7 L ABG Oxyhemoglobin 98.9 H ABG Sodium 133.6 L ABG Potassium 3.1 L ABG Chloride ABG Glucose 346 H Oxyhemoglobin Carboxyhemoglobin 0.1 L Sodium Potassium Chloride Carbon Dioxide BUN Creatinine Glucose POC Glucose Lactic Acid 6.10 H* Calcium AST ALT Lactate Dehydrogenase Total Creatine Kinase CK-MB (CK-2) CK-MB (CK-2) Rel Index Troponin T C-Reactive Protein NT-Pro-B Natriuret Pep Total Protein Albumin Triglycerides HDL Cholesterol Arterial Blood Glucose 346 H Arterial Blood Ionized Calcium Urine Creatinine Urine Chloride Crossmatch 11/10/20 11/10/20 11/10/20 11:06 12:30 15:08 WBC 16.1 H RBC 3.20 L Hgb 9.7 L Hct 29.5 L Plt Count Lymph % (Auto) 7.4 L Lewis % (Auto) 8.7 H Lewis # (Auto) 1.4 H Seg Neutrophils % 83.7 H Seg Neuts % (Manual) Lymphocytes % (Manual) Seg Neutrophils # 13.5 H Seg Neutrophils # Man Lymphocytes # (Manual) PT 18.9 H INR 1.53 H APTT 204.8 H* Fibrinogen D-Dimer Heparin Anti-Xa Level 0.76 H ABG pH POC ABG pO2 ABG pO2 ABG HCO3 ABG O2 Saturation ABG Base Excess ABG Hemoglobin ABG Oxyhemoglobin ABG Sodium ABG Potassium ABG Chloride ABG Glucose Oxyhemoglobin Carboxyhemoglobin Sodium Potassium Chloride Carbon Dioxide BUN Creatinine Glucose POC Glucose Lactic Acid Calcium AST ALT Lactate Dehydrogenase Total Creatine Kinase CK-MB (CK-2) CK-MB (CK-2) Rel Index Troponin T C-Reactive Protein NT-Pro-B Natriuret Pep Total Protein Albumin Triglycerides HDL Cholesterol Arterial Blood Glucose Arterial Blood Ionized Calcium Urine Creatinine 80.9 H Urine Chloride 38.8 L Crossmatch 11/10/20 11/10/20 11/10/20 15:08 17:17 18:25 WBC RBC Hgb Hct Plt Count Lymph % (Auto) Lewis % (Auto) Lewis # (Auto) Seg Neutrophils % Seg Neuts % (Manual) Lymphocytes % (Manual) Seg Neutrophils # Seg Neutrophils # Man Lymphocytes # (Manual) PT INR APTT Fibrinogen D-Dimer Heparin Anti-Xa Level ABG pH 7.206 L POC ABG pO2 ABG pO2 ABG HCO3 18.3 L ABG O2 Saturation ABG Base Excess -9.2 L ABG Hemoglobin 9.4 L ABG Oxyhemoglobin ABG Sodium ABG Potassium ABG Chloride ABG Glucose Oxyhemoglobin 94.3 L Carboxyhemoglobin Sodium Potassium Chloride Carbon Dioxide BUN Creatinine Glucose POC Glucose 200 H Lactic Acid 4.10 H* Calcium AST ALT Lactate Dehydrogenase Total Creatine Kinase CK-MB (CK-2) CK-MB (CK-2) Rel Index Troponin T C-Reactive Protein NT-Pro-B Natriuret Pep Total Protein Albumin Triglycerides HDL Cholesterol Arterial Blood Glucose Arterial Blood Ionized Calcium Urine Creatinine Urine Chloride Crossmatch 11/10/20 11/10/20 11/10/20 19:54 20:21 21:13 WBC RBC Hgb 9.7 L Hct 28.4 L Plt Count Lymph % (Auto) Lewis % (Auto) Lewis # (Auto) Seg Neutrophils % Seg Neuts % (Manual) Lymphocytes % (Manual) Seg Neutrophils # Seg Neutrophils # Man Lymphocytes # (Manual) PT INR APTT Fibrinogen D-Dimer Heparin Anti-Xa Level 0.13 L ABG pH 7.297 L POC ABG pO2 ABG pO2 ABG HCO3 ABG O2 Saturation ABG Base Excess ABG Hemoglobin 7.3 L ABG Oxyhemoglobin ABG Sodium 135.6 L ABG Potassium ABG Chloride 111.0 H ABG Glucose 153 H Oxyhemoglobin Carboxyhemoglobin Sodium Potassium Chloride Carbon Dioxide BUN Creatinine Glucose POC Glucose Lactic Acid Calcium AST ALT Lactate Dehydrogenase Total Creatine Kinase CK-MB (CK-2) CK-MB (CK-2) Rel Index Troponin T C-Reactive Protein NT-Pro-B Natriuret Pep Total Protein Albumin Triglycerides HDL Cholesterol Arterial Blood Glucose 153 H Arterial Blood Ionized Calcium Urine Creatinine Urine Chloride Crossmatch 11/10/20 11/11/20 11/11/20 23:30 04:12 04:35 WBC 16.0 H RBC 2.83 L Hgb 8.7 L Hct 25.8 L Plt Count Lymph % (Auto) Lewis % (Auto) Lewis # (Auto) Seg Neutrophils % Seg Neuts % (Manual) Lymphocytes % (Manual) Seg Neutrophils # Seg Neutrophils # Man Lymphocytes # (Manual) PT INR APTT Fibrinogen D-Dimer Heparin Anti-Xa Level 0.29 L ABG pH POC ABG pO2 ABG pO2 ABG HCO3 ABG O2 Saturation ABG Base Excess ABG Hemoglobin ABG Oxyhemoglobin ABG Sodium ABG Potassium ABG Chloride ABG Glucose Oxyhemoglobin Carboxyhemoglobin Sodium Potassium Chloride Carbon Dioxide BUN Creatinine Glucose POC Glucose 166 H Lactic Acid Calcium AST ALT Lactate Dehydrogenase Total Creatine Kinase CK-MB (CK-2) CK-MB (CK-2) Rel Index Troponin T C-Reactive Protein NT-Pro-B Natriuret Pep Total Protein Albumin Triglycerides HDL Cholesterol Arterial Blood Glucose Arterial Blood Ionized Calcium Urine Creatinine Urine Chloride Crossmatch 11/11/20 11/11/20 11/11/20 04:35 05:00 05:01 WBC RBC Hgb Hct Plt Count Lymph % (Auto) Lewis % (Auto) Lewis # (Auto) Seg Neutrophils % Seg Neuts % (Manual) Lymphocytes % (Manual) Seg Neutrophils # Seg Neutrophils # Man Lymphocytes # (Manual) PT INR APTT Fibrinogen D-Dimer Heparin Anti-Xa Level ABG pH POC ABG pO2 ABG pO2 ABG HCO3 ABG O2 Saturation ABG Base Excess ABG Hemoglobin ABG Oxyhemoglobin ABG Sodium ABG Potassium ABG Chloride ABG Glucose Oxyhemoglobin Carboxyhemoglobin Sodium 136 L Potassium Chloride Carbon Dioxide 17 L BUN 25 H Creatinine 2.5 H Glucose 192 H POC Glucose 191 H Lactic Acid 2.20 H* Calcium 7.6 L AST 232 H ALT 309 H Lactate Dehydrogenase Total Creatine Kinase CK-MB (CK-2) CK-MB (CK-2) Rel Index Troponin T C-Reactive Protein NT-Pro-B Natriuret Pep Total Protein 5.7 L Albumin 2.7 L Triglycerides HDL Cholesterol Arterial Blood Glucose Arterial Blood Ionized Calcium Urine Creatinine Urine Chloride Crossmatch 11/11/20 11/11/20 11/11/20 09:45 12:34 14:40 WBC RBC Hgb Hct Plt Count Lymph % (Auto) Lewis % (Auto) Lewis # (Auto) Seg Neutrophils % Seg Neuts % (Manual) Lymphocytes % (Manual) Seg Neutrophils # Seg Neutrophils # Man Lymphocytes # (Manual) PT INR APTT Fibrinogen D-Dimer Heparin Anti-Xa Level ABG pH POC ABG pO2 ABG pO2 172.4 H ABG HCO3 16.7 L ABG O2 Saturation 99.1 H ABG Base Excess -7.9 L ABG Hemoglobin 6.1 L ABG Oxyhemoglobin ABG Sodium ABG Potassium ABG Chloride ABG Glucose Oxyhemoglobin Carboxyhemoglobin Sodium Potassium Chloride Carbon Dioxide BUN Creatinine Glucose POC Glucose 141 H Lactic Acid 2.70 H* Calcium AST ALT Lactate Dehydrogenase Total Creatine Kinase CK-MB (CK-2) CK-MB (CK-2) Rel Index Troponin T C-Reactive Protein NT-Pro-B Natriuret Pep Total Protein Albumin Triglycerides HDL Cholesterol Arterial Blood Glucose Arterial Blood Ionized Calcium Urine Creatinine Urine Chloride Crossmatch 11/11/20 11/11/20 11/11/20 17:06 21:00 23:20 WBC RBC Hgb 7.1 L Hct 20.9 L Plt Count Lymph % (Auto) Lewis % (Auto) Lewis # (Auto) Seg Neutrophils % Seg Neuts % (Manual) Lymphocytes % (Manual) Seg Neutrophils # Seg Neutrophils # Man Lymphocytes # (Manual) PT INR APTT Fibrinogen D-Dimer Heparin Anti-Xa Level ABG pH 7.287 L POC ABG pO2 ABG pO2 ABG HCO3 ABG O2 Saturation ABG Base Excess ABG Hemoglobin 7.5 L ABG Oxyhemoglobin ABG Sodium 134.1 L ABG Potassium ABG Chloride 110.0 H ABG Glucose 141 H Oxyhemoglobin Carboxyhemoglobin Sodium Potassium Chloride Carbon Dioxide BUN Creatinine Glucose POC Glucose 157 H Lactic Acid Calcium AST ALT Lactate Dehydrogenase Total Creatine Kinase CK-MB (CK-2) CK-MB (CK-2) Rel Index Troponin T C-Reactive Protein NT-Pro-B Natriuret Pep Total Protein Albumin Triglycerides HDL Cholesterol Arterial Blood Glucose 141 H Arterial Blood Ionized Calcium 4.2 L Urine Creatinine Urine Chloride Crossmatch 11/11/20 11/12/20 11/12/20 23:30 04:26 04:26 WBC 16.8 H RBC 2.25 L Hgb 6.8 L Hct 20.5 L Plt Count Lymph % (Auto) Lewis % (Auto) Lewis # (Auto) Seg Neutrophils % Seg Neuts % (Manual) Lymphocytes % (Manual) Seg Neutrophils # Seg Neutrophils # Man Lymphocytes # (Manual) PT INR APTT Fibrinogen D-Dimer Heparin Anti-Xa Level ABG pH POC ABG pO2 ABG pO2 ABG HCO3 ABG O2 Saturation ABG Base Excess ABG Hemoglobin ABG Oxyhemoglobin ABG Sodium ABG Potassium ABG Chloride ABG Glucose Oxyhemoglobin Carboxyhemoglobin Sodium Potassium Chloride 110.1 H Carbon Dioxide 18 L BUN 25 H Creatinine 2.4 H Glucose 146 H POC Glucose 127 H Lactic Acid Calcium 7.4 L AST ALT Lactate Dehydrogenase Total Creatine Kinase CK-MB (CK-2) CK-MB (CK-2) Rel Index Troponin T C-Reactive Protein NT-Pro-B Natriuret Pep Total Protein Albumin Triglycerides HDL Cholesterol Arterial Blood Glucose Arterial Blood Ionized Calcium Urine Creatinine Urine Chloride Crossmatch 11/12/20 11/12/20 11/12/20 04:26 06:01 12:02 WBC RBC Hgb Hct Plt Count Lymph % (Auto) Lewis % (Auto) Lewis # (Auto) Seg Neutrophils % Seg Neuts % (Manual) Lymphocytes % (Manual) Seg Neutrophils # Seg Neutrophils # Man Lymphocytes # (Manual) PT 17.6 H INR 1.40 H APTT 162.1 H* Fibrinogen D-Dimer Heparin Anti-Xa Level ABG pH POC ABG pO2 ABG pO2 ABG HCO3 ABG O2 Saturation ABG Base Excess ABG Hemoglobin ABG Oxyhemoglobin ABG Sodium ABG Potassium ABG Chloride ABG Glucose Oxyhemoglobin Carboxyhemoglobin Sodium Potassium Chloride Carbon Dioxide BUN Creatinine Glucose POC Glucose 134 H 131 H Lactic Acid Calcium AST ALT Lactate Dehydrogenase Total Creatine Kinase CK-MB (CK-2) CK-MB (CK-2) Rel Index Troponin T C-Reactive Protein NT-Pro-B Natriuret Pep Total Protein Albumin Triglycerides HDL Cholesterol Arterial Blood Glucose Arterial Blood Ionized Calcium Urine Creatinine Urine Chloride Crossmatch 11/12/20 11/12/20 11/12/20 12:05 12:34 17:26 WBC RBC Hgb 6.8 L Hct 20.3 L Plt Count Lymph % (Auto) Lewis % (Auto) Lewis # (Auto) Seg Neutrophils % Seg Neuts % (Manual) Lymphocytes % (Manual) Seg Neutrophils # Seg Neutrophils # Man Lymphocytes # (Manual) PT INR APTT Fibrinogen D-Dimer Heparin Anti-Xa Level ABG pH 7.297 L POC ABG pO2 ABG pO2 ABG HCO3 ABG O2 Saturation ABG Base Excess ABG Hemoglobin 7.3 L ABG Oxyhemoglobin ABG Sodium 135.6 L ABG Potassium ABG Chloride 111.0 H ABG Glucose 153 H Oxyhemoglobin Carboxyhemoglobin Sodium Potassium Chloride Carbon Dioxide BUN Creatinine Glucose POC Glucose 119 H Lactic Acid Calcium AST ALT Lactate Dehydrogenase Total Creatine Kinase CK-MB (CK-2) CK-MB (CK-2) Rel Index Troponin T C-Reactive Protein NT-Pro-B Natriuret Pep Total Protein Albumin Triglycerides HDL Cholesterol Arterial Blood Glucose 153 H Arterial Blood Ionized Calcium Urine Creatinine Urine Chloride Crossmatch 11/12/20 11/13/20 11/13/20 23:49 02:11 02:11 WBC 15.9 H RBC 2.38 L Hgb 7.1 L Hct 21.3 L Plt Count Lymph % (Auto) Lewis % (Auto) 8.9 H Lewis # (Auto) 1.4 H Seg Neutrophils % 73.5 H Seg Neuts % (Manual) Lymphocytes % (Manual) Seg Neutrophils # 11.7 H Seg Neutrophils # Man Lymphocytes # (Manual) PT INR APTT Fibrinogen D-Dimer Heparin Anti-Xa Level ABG pH POC ABG pO2 ABG pO2 ABG HCO3 ABG O2 Saturation ABG Base Excess ABG Hemoglobin ABG Oxyhemoglobin ABG Sodium ABG Potassium ABG Chloride ABG Glucose Oxyhemoglobin Carboxyhemoglobin Sodium Potassium Chloride 109.8 H Carbon Dioxide 18 L BUN 26 H Creatinine 2.3 H Glucose 109 H POC Glucose 118 H Lactic Acid Calcium 7.7 L AST ALT Lactate Dehydrogenase Total Creatine Kinase CK-MB (CK-2) CK-MB (CK-2) Rel Index Troponin T C-Reactive Protein NT-Pro-B Natriuret Pep Total Protein Albumin Triglycerides HDL Cholesterol Arterial Blood Glucose Arterial Blood Ionized Calcium Urine Creatinine Urine Chloride Crossmatch 11/13/20 11/13/20 11/13/20 04:03 06:01 07:50 WBC RBC Hgb 7.7 L Hct 23.3 L Plt Count Lymph % (Auto) Lewis % (Auto) Lewis # (Auto) Seg Neutrophils % Seg Neuts % (Manual) Lymphocytes % (Manual) Seg Neutrophils # Seg Neutrophils # Man Lymphocytes # (Manual) PT INR APTT Fibrinogen D-Dimer Heparin Anti-Xa Level ABG pH POC ABG pO2 145.7 H ABG pO2 ABG HCO3 ABG O2 Saturation ABG Base Excess ABG Hemoglobin 7.2 L ABG Oxyhemoglobin ABG Sodium 135.3 L ABG Potassium ABG Chloride 113.0 H ABG Glucose 108 H Oxyhemoglobin Carboxyhemoglobin Sodium Potassium Chloride Carbon Dioxide BUN Creatinine Glucose POC Glucose 108 H Lactic Acid Calcium AST ALT Lactate Dehydrogenase Total Creatine Kinase CK-MB (CK-2) CK-MB (CK-2) Rel Index Troponin T C-Reactive Protein NT-Pro-B Natriuret Pep Total Protein Albumin Triglycerides HDL Cholesterol Arterial Blood Glucose 108 H Arterial Blood Ionized Calcium 4.3 L Urine Creatinine Urine Chloride Crossmatch 11/13/20 12:00 WBC RBC Hgb Hct Plt Count Lymph % (Auto) Lewis % (Auto) Lewis # (Auto) Seg Neutrophils % Seg Neuts % (Manual) Lymphocytes % (Manual) Seg Neutrophils # Seg Neutrophils # Man Lymphocytes # (Manual) PT INR APTT Fibrinogen D-Dimer Heparin Anti-Xa Level ABG pH POC ABG pO2 ABG pO2 ABG HCO3 ABG O2 Saturation ABG Base Excess ABG Hemoglobin ABG Oxyhemoglobin ABG Sodium ABG Potassium ABG Chloride ABG Glucose Oxyhemoglobin Carboxyhemoglobin Sodium Potassium Chloride Carbon Dioxide BUN Creatinine Glucose POC Glucose 147 H Lactic Acid Calcium AST ALT Lactate Dehydrogenase Total Creatine Kinase CK-MB (CK-2) CK-MB (CK-2) Rel Index Troponin T C-Reactive Protein NT-Pro-B Natriuret Pep Total Protein Albumin Triglycerides HDL Cholesterol Arterial Blood Glucose Arterial Blood Ionized Calcium Urine Creatinine Urine Chloride Crossmatch
--- NOTE | 2020-11-13 13:40 | Progress Note ---
Assessment and Plan Acute hypoxemic respiratory failure Acute pulmonary embolism bilaterally Bilateral pulmonary infiltrates/pneumonia Cardiac arrest with ROSC [id number] kidney injury Oropharyngeal dysphagia HTN Shock (cardiogenic and hypovolemic) Chronic right bundle-branch block Arthritis Thrombocytopenia Coagulopathy Hypokalemia Severe metabolic acidosis Lactic acidosis Elevated serum transaminases Possible NSTEMI - get stat H&H - NGT to LIS - suspect oropharyngeal injury possibly delma-intubation ? -supportive transfusions for serum Hb < 7.0 - will continue full anticoagulation for now - continue to trend H&H - begin Precedex re: Delirium - reduced set rate to 12/min - repeat ABG at 9 pm - change IVF to alkalanized fluids in short term re: metabolic acidosis (D5W with 3 amps/Liter @ 75 mls/hr X 2 liters then will stop) - azxotemis per nephrology otherwise (input appreciated) - follow I's & O's; leave prince in place in short term re: critical illness and TYLER - now off Levophed (prn use for target MAP > 65 mmHg) - continue care as below otherwise; - Daily SAT and SBT assessment as tolerated - continue to wean supplemental oxygen for target O2 sat's > 90% acutely - VAP bundle addressed - continue lung protective strategies - continue bronchodilators with pulmonary hygiene per RT - wean per pulmonary driven protocols otherwise - continue accuchecks with glycemic control per SSI (While critically ill target blood glucose of 140-180 mg/dL; avoid hypoglycemia) - sedation prn for target RASS 0 to -1 - avoid nephrotoxins, renally dose all medications - continue to avoid benzodiazepine's, reduce the possibility of delirium - completed AB's per ID rec's - prn analgesia per CPOT score - Maintenance of sleep-wake cycle, avoid delirium - continue enteral nutritional support at goal rate as tolerated - G.I. & VTE prophylaxis - PT/OT/ROM exercises - continue mobility protocols for pressure ulcer prophylaxis - Monitor hemodynamics closely - continue other care per attending / other consultants - discharge planning ongoing concurrently COVID SPECIFIC INTERVENTIONS - COVID-19 test negative .... Re-evaluate in am & prn CONDITION: CRITICAL PROGNOSIS: GUARDED CODE STATUS: FULL CODE The high probability of a clinically significant, sudden or life-threatening deterioration of the [respiratory, cardiovascular, GI & neurologic] system(s) required my full and direct attention, intervention and personal management. The aggregate critical care time was [35] minutes without overlap. Time includes sp ent on; [x] Data Review and interpretation [x] Patient assessment and monitoring of vital signs [x] Documentation [x] Medication orders and management Subjective Date of service: 11/13/20 Principal diagnosis: Ac. hypoxemic resp failure; P.E.; PNA; Cardiac arrest; TYLER; Shock Interval history: Patient is seen today for: Acute hypoxemic respiratory failure; Acute P.E.; Pneumonia; Cardiac arrest with ROSC; TYLER; Shock (cardiogenic and hypovolemic); Thrombocytopenia Seen and examined at bedside; 24hour events reviewed; nursing and respiratory care staff consulted; no adverse overnight events reported to me; resting in bed; on SBT and tolerating well; delirious today; just coughed up vs vomited about 6 oz of congealed and fresh looking blood; afebrile and no bleeding elsewhere Objective Vital Signs - 12hr 11/13/20 11/13/20 11/13/20 01:30 01:45 02:00 Temperature Pulse Rate 80 79 81 Respiratory 20 20 21 Rate Blood Pressure 125/57 115/56 120/58 O2 Sat by Pulse 100 100 100 Oximetry 11/13/20 11/13/20 11/13/20 02:15 02:30 02:45 Temperature Pulse Rate 88 80 81 Respiratory 20 20 20 Rate Blood Pressure 129/62 119/57 118/56 O2 Sat by Pulse 100 100 100 Oximetry 11/13/20 11/13/20 11/13/20 03:00 03:15 03:31 Temperature Pulse Rate 79 87 74 Respiratory 20 20 20 Rate Blood Pressure 108/54 102/50 88/31 O2 Sat by Pulse 100 100 100 Oximetry 11/13/20 11/13/20 11/13/20 03:45 04:00 04:05 Temperature 99.0 F Pulse Rate 87 77 77 Respiratory 20 20 Rate Blood Pressure 115/59 111/48 O2 Sat by Pulse 100 100 100 Oximetry 11/13/20 11/13/20 11/13/20 04:15 04:25 04:30 Temperature Pulse Rate 80 80 Respiratory 20 20 20 Rate Blood Pressure 105/52 97/50 O2 Sat by Pulse 99 99 99 Oximetry 11/13/20 11/13/20 11/13/20 04:45 05:00 05:15 Temperature Pulse Rate 89 77 79 Respiratory 15 16 20 Rate Blood Pressure 97/50 116/56 111/60 O2 Sat by Pulse 97 98 100 Oximetry 11/13/20 11/13/20 11/13/20 05:31 05:45 06:00 Temperature Pulse Rate 92 H 107 H 99 H Respiratory 18 19 20 Rate Blood Pressure 130/71 130/71 142/71 O2 Sat by Pulse 100 97 97 Oximetry 11/13/20 11/13/20 11/13/20 06:15 06:30 06:45 Temperature Pulse Rate 92 H 86 92 H Respiratory 20 20 17 Rate Blood Pressure 135/58 123/54 128/59 O2 Sat by Pulse 98 99 100 Oximetry 11/13/20 11/13/20 11/13/20 07:00 07:15 07:30 Temperature Pulse Rate 87 77 80 Respiratory 20 20 20 Rate Blood Pressure 126/57 122/54 126/63 O2 Sat by Pulse 99 99 100 Oximetry 11/13/20 11/13/20 11/13/20 07:45 08:00 08:15 Temperature 99.0 F Pulse Rate 78 76 76 Respiratory 20 22 20 Rate Blood Pressure 124/57 121/56 121/56 O2 Sat by Pulse 99 99 100 Oximetry 11/13/20 11/13/20 11/13/20 08:31 08:36 08:45 Temperature Pulse Rate 75 77 81 Respiratory 20 20 Rate Blood Pressure 124/58 124/58 126/60 O2 Sat by Pulse 100 100 Oximetry 11/13/20 11/13/20 11/13/20 09:00 09:15 09:30 Temperature Pulse Rate 80 87 79 Respiratory 20 20 19 Rate Blood Pressure 128/57 136/59 125/55 O2 Sat by Pulse 100 100 100 Oximetry 11/13/20 11/13/20 11/13/20 09:45 10:00 10:15 Temperature Pulse Rate 82 98 H 95 H Respiratory 13 15 20 Rate Blood Pressure 134/59 149/64 146/69 O2 Sat by Pulse 100 100 99 Oximetry 11/13/20 11/13/20 11/13/20 10:30 10:45 11:00 Temperature Pulse Rate 88 89 89 Respiratory 20 20 21 Rate Blood Pressure 130/63 127/63 130/65 O2 Sat by Pulse 98 99 100 Oximetry 11/13/20 11/13/20 11/13/20 11:15 11:30 11:45 Temperature Pulse Rate 88 95 H 90 Respiratory 20 19 11 L Rate Blood Pressure 128/61 131/53 140/62 O2 Sat by Pulse 100 100 100 Oximetry 11/13/20 11/13/20 11/13/20 12:00 12:15 12:16 Temperature 99.0 F Pulse Rate 89 82 90 Respiratory 21 17 Rate Blood Pressure 135/62 144/63 O2 Sat by Pulse 100 100 Oximetry 11/13/20 12:18 Temperature Pulse Rate 89 Respiratory Rate Blood Pressure 144/63 O2 Sat by Pulse 100 Oximetry Constitutional: appears uncomfortable, other (elderly obese female with mildly increased respiratory effort at rest) Eyes: non-icteric ENT: oropharynx moist, oropharyngeal exudate pre (bloody), other (ETT 24 cm LOIDA) Neck: supple, no lymphadenopathy, no JVD Effort: normal Ascultation: Bilateral: diminished breath sounds, rhonchi Percussion: Bilateral: not dull Cardiovascular: regular rate and rhythm Gastrointestinal: normoactive bowel sounds Integumentary: normal Extremities: no cyanosis, pulses normal, no ischemia or petechiae Neurologic: non-focal exam (grossly), pupils equal and round, CN II-XII normal Psychiatric: other (delirious) CBC and BMP: 11/13/20 07:50 11/13/20 02:11 ABG, PT/INR, D-dimer: ABG ABG pH 7.345 (7.320-7.450) 11/13/20 04:03 POC ABG pCO2 33.5 mmHg (32.0-48.0) 11/13/20 04:03 ABG pCO2 29.4 mm Hg 11/11/20 09:45 POC ABG pO2 145.7 mmHg (83-108) H 11/13/20 04:03 ABG pO2 172.4 mm Hg (80.0-90.0) H 11/11/20 09:45 POC ABG HCO3 17.9 11/13/20 04:03 ABG O2 Saturation 98.8 (0-100) 11/13/20 04:03 PT/INR, D-dimer PT 17.6 Sec. (12.2-14.9) H 11/12/20 04:26 INR 1.40 (0.87-1.13) H 11/12/20 04:26 D-Dimer > 37508 ng/mlDDU (0-234) H 11/10/20 04:28 Abnormal lab findings: Abnormal Labs 11/09/20 11/09/20 11/09/20 17:24 17:24 17:24 WBC RBC 3.29 L Hgb Hct Plt Count 100 L Lymph % (Auto) 54.6 H [place] % (Auto) [place] # (Auto) Seg Neutrophils % 38.5 L Seg Neuts % (Manual) Lymphocytes % (Manual) Seg Neutrophils # Seg Neutrophils # Man Lymphocytes # (Manual) PT 19.9 H INR 1.64 H APTT 49.2 H Fibrinogen D-Dimer > 39167 H Heparin Anti-Xa Level ABG pH POC ABG pO2 ABG pO2 ABG HCO3 ABG O2 Saturation ABG Base Excess ABG Hemoglobin ABG Oxyhemoglobin ABG Sodium ABG Potassium ABG Chloride ABG Glucose Oxyhemoglobin Carboxyhemoglobin Sodium Potassium 2.9 L* Chloride Carbon Dioxide 13 L BUN Creatinine 1.4 H Glucose 391 H POC Glucose Lactic Acid Calcium AST ALT Lactate Dehydrogenase Total Creatine Kinase CK-MB (CK-2) 5.0 H CK-MB (CK-2) Rel Index 4.8 H Troponin T 0.263 H* C-Reactive Protein NT-Pro-B Natriuret Pep Total Protein Albumin Triglycerides 163 H HDL Cholesterol 29 L Arterial Blood Glucose Arterial Blood Ionized Calcium Urine Creatinine Urine Chloride Crossmatch 11/09/20 11/09/20 11/09/20 17:24 17:24 18:11 WBC RBC Hgb Hct Plt Count Lymph % (Auto) [place] % (Auto) [place] # (Auto) Seg Neutrophils % Seg Neuts % (Manual) Lymphocytes % (Manual) Seg Neutrophils # Seg Neutrophils # Man Lymphocytes # (Manual) PT INR APTT Fibrinogen D-Dimer Heparin Anti-Xa Level ABG pH POC ABG pO2 ABG pO2 ABG HCO3 ABG O2 Saturation ABG Base Excess ABG Hemoglobin ABG Oxyhemoglobin ABG Sodium ABG Potassium ABG Chloride ABG Glucose Oxyhemoglobin Carboxyhemoglobin Sodium Potassium Chloride Carbon Dioxide BUN Creatinine Glucose POC Glucose Lactic Acid 11.40 H* Calcium AST 312 H ALT 273 H Lactate Dehydrogenase Total Creatine Kinase CK-MB (CK-2) CK-MB (CK-2) Rel Index Troponin T C-Reactive Protein NT-Pro-B Natriuret Pep 1169 H Total Protein 5.2 L Albumin 2.8 L Triglycerides HDL Cholesterol Arterial Blood Glucose Arterial Blood Ionized Calcium Urine Creatinine Urine Chloride Crossmatch See Detail 11/09/20 11/09/20 11/09/20 18:21 20:07 20:07 WBC RBC Hgb Hct Plt Count Lymph % (Auto) [place] % (Auto) [place] # (Auto) Seg Neutrophils % Seg Neuts % (Manual) Lymphocytes % (Manual) Seg Neutrophils # Seg Neutrophils # Man Lymphocytes # (Manual) PT INR APTT Fibrinogen D-Dimer Heparin Anti-Xa Level ABG pH 7.053 L POC ABG pO2 159.6 H ABG pO2 ABG HCO3 ABG O2 Saturation ABG Base Excess ABG Hemoglobin ABG Oxyhemoglobin ABG Sodium 135.1 L ABG Potassium ABG Chloride ABG Glucose 421 H Oxyhemoglobin Carboxyhemoglobin 0.3 L Sodium Potassium Chloride Carbon Dioxide BUN Creatinine Glucose POC Glucose Lactic Acid 9.00 H* Calcium AST ALT Lactate Dehydrogenase Total Creatine Kinase 340 H CK-MB (CK-2) 14.2 H CK-MB (CK-2) Rel Index 4.1 H Troponin T 0.553 H* D C-Reactive Protein NT-Pro-B Natriuret Pep Total Protein Albumin Triglycerides HDL Cholesterol Arterial Blood Glucose 421 H Arterial Blood Ionized Calcium Urine Creatinine Urine Chloride Crossmatch 11/09/20 11/09/20 11/10/20 23:05 23:05 00:42 WBC RBC Hgb Hct Plt Count Lymph % (Auto) [place] % (Auto) [place] # (Auto) Seg Neutrophils % Seg Neuts % (Manual) Lymphocytes % (Manual) Seg Neutrophils # Seg Neutrophils # Man Lymphocytes # (Manual) PT 19.8 H INR 1.63 H APTT Fibrinogen 210 L D-Dimer Heparin Anti-Xa Level 0.79 H ABG pH POC ABG pO2 ABG pO2 ABG HCO3 ABG O2 Saturation ABG Base Excess ABG Hemoglobin ABG Oxyhemoglobin ABG Sodium ABG Potassium ABG Chloride ABG Glucose Oxyhemoglobin Carboxyhemoglobin Sodium Potassium Chloride Carbon Dioxide BUN Creatinine Glucose POC Glucose Lactic Acid 6.80 H* Calcium AST ALT Lactate Dehydrogenase Total Creatine Kinase 449 H CK-MB (CK-2) 18.4 H CK-MB (CK-2) Rel Index Troponin T 0.873 H* D C-Reactive Protein NT-Pro-B Natriuret Pep Total Protein Albumin Triglycerides HDL Cholesterol Arterial Blood Glucose Arterial Blood Ionized Calcium Urine Creatinine Urine Chloride Crossmatch 11/10/20 11/10/20 11/10/20 04:28 04:28 04:28 WBC RBC Hgb Hct Plt Count Lymph % (Auto) [place] % (Auto) [place] # (Auto) Seg Neutrophils % Seg Neuts % (Manual) Lymphocytes % (Manual) Seg Neutrophils # Seg Neutrophils # Man Lymphocytes # (Manual) PT 20.3 H INR 1.69 H APTT Fibrinogen D-Dimer > 37431 H Heparin Anti-Xa Level ABG pH POC ABG pO2 ABG pO2 ABG HCO3 ABG O2 Saturation ABG Base Excess ABG Hemoglobin ABG Oxyhemoglobin ABG Sodium ABG Potassium ABG Chloride ABG Glucose Oxyhemoglobin Carboxyhemoglobin Sodium 136 L Potassium 3.3 L Chloride Carbon Dioxide 16 L BUN 21 H Creatinine 1.8 H Glucose 376 H POC Glucose Lactic Acid Calcium AST ALT Lactate Dehydrogenase 1637 H Total Creatine Kinase CK-MB (CK-2) CK-MB (CK-2) Rel Index Troponin T C-Reactive Protein 3.50 H NT-Pro-B Natriuret Pep Total Protein Albumin Triglycerides HDL Cholesterol Arterial Blood Glucose Arterial Blood Ionized Calcium Urine Creatinine Urine Chloride Crossmatch 11/10/20 11/10/20 11/10/20 04:28 04:28 05:13 WBC 17.7 H RBC Hgb Hct Plt Count Lymph % (Auto) [place] % (Auto) [place] # (Auto) Seg Neutrophils % Seg Neuts % (Manual) 96.0 H Lymphocytes % (Manual) 1.0 L Seg Neutrophils # Seg Neutrophils # Man 17.0 H Lymphocytes # (Manual) 0.2 L PT INR APTT Fibrinogen D-Dimer Heparin Anti-Xa Level ABG pH 7.221 L POC ABG pO2 162.0 H ABG pO2 ABG HCO3 ABG O2 Saturation ABG Base Excess ABG Hemoglobin 11.7 L ABG Oxyhemoglobin 98.9 H ABG Sodium 133.6 L ABG Potassium 3.1 L ABG Chloride ABG Glucose 346 H Oxyhemoglobin Carboxyhemoglobin 0.1 L Sodium Potassium Chloride Carbon Dioxide BUN Creatinine Glucose POC Glucose Lactic Acid 6.10 H* Calcium AST ALT Lactate Dehydrogenase Total Creatine Kinase CK-MB (CK-2) CK-MB (CK-2) Rel Index Troponin T C-Reactive Protein NT-Pro-B Natriuret Pep Total Protein Albumin Triglycerides HDL Cholesterol Arterial Blood Glucose 346 H Arterial Blood Ionized Calcium Urine Creatinine Urine Chloride Crossmatch 11/10/20 11/10/20 11/10/20 11:06 12:30 15:08 WBC 16.1 H RBC 3.20 L Hgb 9.7 L Hct 29.5 L Plt Count Lymph % (Auto) 7.4 L [place] % (Auto) 8.7 H [place] # (Auto) 1.4 H Seg Neutrophils % 83.7 H Seg Neuts % (Manual) Lymphocytes % (Manual) Seg Neutrophils # 13.5 H Seg Neutrophils # Man Lymphocytes # (Manual) PT 18.9 H INR 1.53 H APTT 204.8 H* Fibrinogen D-Dimer Heparin Anti-Xa Level 0.76 H ABG pH POC ABG pO2 ABG pO2 ABG HCO3 ABG O2 Saturation ABG Base Excess ABG Hemoglobin ABG Oxyhemoglobin ABG Sodium ABG Potassium ABG Chloride ABG Glucose Oxyhemoglobin Carboxyhemoglobin Sodium Potassium Chloride Carbon Dioxide BUN Creatinine Glucose POC Glucose Lactic Acid Calcium AST ALT Lactate Dehydrogenase Total Creatine Kinase CK-MB (CK-2) CK-MB (CK-2) Rel Index Troponin T C-Reactive Protein NT-Pro-B Natriuret Pep Total Protein Albumin Triglycerides HDL Cholesterol Arterial Blood Glucose Arterial Blood Ionized Calcium Urine Creatinine 80.9 H Urine Chloride 38.8 L Crossmatch 11/10/20 11/10/20 11/10/20 15:08 17:17 18:25 WBC RBC Hgb Hct Plt Count Lymph % (Auto) [place] % (Auto) [place] # (Auto) Seg Neutrophils % Seg Neuts % (Manual) Lymphocytes % (Manual) Seg Neutrophils # Seg Neutrophils # Man Lymphocytes # (Manual) PT INR APTT Fibrinogen D-Dimer Heparin Anti-Xa Level ABG pH 7.206 L POC ABG pO2 ABG pO2 ABG HCO3 18.3 L ABG O2 Saturation ABG Base Excess -9.2 L ABG Hemoglobin 9.4 L ABG Oxyhemoglobin ABG Sodium ABG Potassium ABG Chloride ABG Glucose Oxyhemoglobin 94.3 L Carboxyhemoglobin Sodium Potassium Chloride Carbon Dioxide BUN Creatinine Glucose POC Glucose 200 H Lactic Acid 4.10 H* Calcium AST ALT Lactate Dehydrogenase Total Creatine Kinase CK-MB (CK-2) CK-MB (CK-2) Rel Index Troponin T C-Reactive Protein NT-Pro-B Natriuret Pep Total Protein Albumin Triglycerides HDL Cholesterol Arterial Blood Glucose Arterial Blood Ionized Calcium Urine Creatinine Urine Chloride Crossmatch 11/10/20 11/10/20 11/10/20 19:54 20:21 21:13 WBC RBC Hgb 9.7 L Hct 28.4 L Plt Count Lymph % (Auto) [place] % (Auto) [place] # (Auto) Seg Neutrophils % Seg Neuts % (Manual) Lymphocytes % (Manual) Seg Neutrophils # Seg Neutrophils # Man Lymphocytes # (Manual) PT INR APTT Fibrinogen D-Dimer Heparin Anti-Xa Level 0.13 L ABG pH 7.297 L POC ABG pO2 ABG pO2 ABG HCO3 ABG O2 Saturation ABG Base Excess ABG Hemoglobin 7.3 L ABG Oxyhemoglobin ABG Sodium 135.6 L ABG Potassium ABG Chloride 111.0 H ABG Glucose 153 H Oxyhemoglobin Carboxyhemoglobin Sodium Potassium Chloride Carbon Dioxide BUN Creatinine Glucose POC Glucose Lactic Acid Calcium AST ALT Lactate Dehydrogenase Total Creatine Kinase CK-MB (CK-2) CK-MB (CK-2) Rel Index Troponin T C-Reactive Protein NT-Pro-B Natriuret Pep Total Protein Albumin Triglycerides HDL Cholesterol Arterial Blood Glucose 153 H Arterial Blood Ionized Calcium Urine Creatinine Urine Chloride Crossmatch 11/10/20 11/11/20 11/11/20 23:30 04:12 04:35 WBC 16.0 H RBC 2.83 L Hgb 8.7 L Hct 25.8 L Plt Count Lymph % (Auto) [place] % (Auto) [place] # (Auto) Seg Neutrophils % Seg Neuts % (Manual) Lymphocytes % (Manual) Seg Neutrophils # Seg Neutrophils # Man Lymphocytes # (Manual) PT INR APTT Fibrinogen D-Dimer Heparin Anti-Xa Level 0.29 L ABG pH POC ABG pO2 ABG pO2 ABG HCO3 ABG O2 Saturation ABG Base Excess ABG Hemoglobin ABG Oxyhemoglobin ABG Sodium ABG Potassium ABG Chloride ABG Glucose Oxyhemoglobin Carboxyhemoglobin Sodium Potassium Chloride Carbon Dioxide BUN Creatinine Glucose POC Glucose 166 H Lactic Acid Calcium AST ALT Lactate Dehydrogenase Total Creatine Kinase CK-MB (CK-2) CK-MB (CK-2) Rel Index Troponin T C-Reactive Protein NT-Pro-B Natriuret Pep Total Protein Albumin Triglycerides HDL Cholesterol Arterial Blood Glucose Arterial Blood Ionized Calcium Urine Creatinine Urine Chloride Crossmatch 11/11/20 11/11/20 11/11/20 04:35 05:00 05:01 WBC RBC Hgb Hct Plt Count Lymph % (Auto) [place] % (Auto) [place] # (Auto) Seg Neutrophils % Seg Neuts % (Manual) Lymphocytes % (Manual) Seg Neutrophils # Seg Neutrophils # Man Lymphocytes # (Manual) PT INR APTT Fibrinogen D-Dimer Heparin Anti-Xa Level ABG pH POC ABG pO2 ABG pO2 ABG HCO3 ABG O2 Saturation ABG Base Excess ABG Hemoglobin ABG Oxyhemoglobin ABG Sodium ABG Potassium ABG Chloride ABG Glucose Oxyhemoglobin Carboxyhemoglobin Sodium 136 L Potassium Chloride Carbon Dioxide 17 L BUN 25 H Creatinine 2.5 H Glucose 192 H POC Glucose 191 H Lactic Acid 2.20 H* Calcium 7.6 L AST 232 H ALT 309 H Lactate Dehydrogenase Total Creatine Kinase CK-MB (CK-2) CK-MB (CK-2) Rel Index Troponin T C-Reactive Protein NT-Pro-B Natriuret Pep Total Protein 5.7 L Albumin 2.7 L Triglycerides HDL Cholesterol Arterial Blood Glucose Arterial Blood Ionized Calcium Urine Creatinine Urine Chloride Crossmatch 11/11/20 11/11/20 11/11/20 09:45 12:34 14:40 WBC RBC Hgb Hct Plt Count Lymph % (Auto) [place] % (Auto) [place] # (Auto) Seg Neutrophils % Seg Neuts % (Manual) Lymphocytes % (Manual) Seg Neutrophils # Seg Neutrophils # Man Lymphocytes # (Manual) PT INR APTT Fibrinogen D-Dimer Heparin Anti-Xa Level ABG pH POC ABG pO2 ABG pO2 172.4 H ABG HCO3 16.7 L ABG O2 Saturation 99.1 H ABG Base Excess -7.9 L ABG Hemoglobin 6.1 L ABG Oxyhemoglobin ABG Sodium ABG Potassium ABG Chloride ABG Glucose Oxyhemoglobin Carboxyhemoglobin Sodium Potassium Chloride Carbon Dioxide BUN Creatinine Glucose POC Glucose 141 H Lactic Acid 2.70 H* Calcium AST ALT Lactate Dehydrogenase Total Creatine Kinase CK-MB (CK-2) CK-MB (CK-2) Rel Index Troponin T C-Reactive Protein NT-Pro-B Natriuret Pep Total Protein Albumin Triglycerides HDL Cholesterol Arterial Blood Glucose Arterial Blood Ionized Calcium Urine Creatinine Urine Chloride Crossmatch 11/11/20 11/11/20 11/11/20 17:06 21:00 23:20 WBC RBC Hgb 7.1 L Hct 20.9 L Plt Count Lymph % (Auto) [place] % (Auto) [place] # (Auto) Seg Neutrophils % Seg Neuts % (Manual) Lymphocytes % (Manual) Seg Neutrophils # Seg Neutrophils # Man Lymphocytes # (Manual) PT INR APTT Fibrinogen D-Dimer Heparin Anti-Xa Level ABG pH 7.287 L POC ABG pO2 ABG pO2 ABG HCO3 ABG O2 Saturation ABG Base Excess ABG Hemoglobin 7.5 L ABG Oxyhemoglobin ABG Sodium 134.1 L ABG Potassium ABG Chloride 110.0 H ABG Glucose 141 H Oxyhemoglobin Carboxyhemoglobin Sodium Potassium Chloride Carbon Dioxide BUN Creatinine Glucose POC Glucose 157 H Lactic Acid Calcium AST ALT Lactate Dehydrogenase Total Creatine Kinase CK-MB (CK-2) CK-MB (CK-2) Rel Index Troponin T C-Reactive Protein NT-Pro-B Natriuret Pep Total Protein Albumin Triglycerides HDL Cholesterol Arterial Blood Glucose 141 H Arterial Blood Ionized Calcium 4.2 L Urine Creatinine Urine Chloride Crossmatch 11/11/20 11/12/20 11/12/20 23:30 04:26 04:26 WBC 16.8 H RBC 2.25 L Hgb 6.8 L Hct 20.5 L Plt Count Lymph % (Auto) [place] % (Auto) [place] # (Auto) Seg Neutrophils % Seg Neuts % (Manual) Lymphocytes % (Manual) Seg Neutrophils # Seg Neutrophils # Man Lymphocytes # (Manual) PT INR APTT Fibrinogen D-Dimer Heparin Anti-Xa Level ABG pH POC ABG pO2 ABG pO2 ABG HCO3 ABG O2 Saturation ABG Base Excess ABG Hemoglobin ABG Oxyhemoglobin ABG Sodium ABG Potassium ABG Chloride ABG Glucose Oxyhemoglobin Carboxyhemoglobin Sodium Potassium Chloride 110.1 H Carbon Dioxide 18 L BUN 25 H Creatinine 2.4 H Glucose 146 H POC Glucose 127 H Lactic Acid Calcium 7.4 L AST ALT Lactate Dehydrogenase Total Creatine Kinase CK-MB (CK-2) CK-MB (CK-2) Rel Index Troponin T C-Reactive Protein NT-Pro-B Natriuret Pep Total Protein Albumin Triglycerides HDL Cholesterol Arterial Blood Glucose Arterial Blood Ionized Calcium Urine Creatinine Urine Chloride Crossmatch 11/12/20 11/12/20 11/12/20 04:26 06:01 12:02 WBC RBC Hgb Hct Plt Count Lymph % (Auto) [place] % (Auto) [place] # (Auto) Seg Neutrophils % Seg Neuts % (Manual) Lymphocytes % (Manual) Seg Neutrophils # Seg Neutrophils # Man Lymphocytes # (Manual) PT 17.6 H INR 1.40 H APTT 162.1 H* Fibrinogen D-Dimer Heparin Anti-Xa Level ABG pH POC ABG pO2 ABG pO2 ABG HCO3 ABG O2 Saturation ABG Base Excess ABG Hemoglobin ABG Oxyhemoglobin ABG Sodium ABG Potassium ABG Chloride ABG Glucose Oxyhemoglobin Carboxyhemoglobin Sodium Potassium Chloride Carbon Dioxide BUN Creatinine Glucose POC Glucose 134 H 131 H Lactic Acid Calcium AST ALT Lactate Dehydrogenase Total Creatine Kinase CK-MB (CK-2) CK-MB (CK-2) Rel Index Troponin T C-Reactive Protein NT-Pro-B Natriuret Pep Total Protein Albumin Triglycerides HDL Cholesterol Arterial Blood Glucose Arterial Blood Ionized Calcium Urine Creatinine Urine Chloride Crossmatch 11/12/20 11/12/20 11/12/20 12:05 12:34 17:26 WBC RBC Hgb 6.8 L Hct 20.3 L Plt Count Lymph % (Auto) [place] % (Auto) [place] # (Auto) Seg Neutrophils % Seg Neuts % (Manual) Lymphocytes % (Manual) Seg Neutrophils # Seg Neutrophils # Man Lymphocytes # (Manual) PT INR APTT Fibrinogen D-Dimer Heparin Anti-Xa Level ABG pH 7.297 L POC ABG pO2 ABG pO2 ABG HCO3 ABG O2 Saturation ABG Base Excess ABG Hemoglobin 7.3 L ABG Oxyhemoglobin ABG Sodium 135.6 L ABG Potassium ABG Chloride 111.0 H ABG Glucose 153 H Oxyhemoglobin Carboxyhemoglobin Sodium Potassium Chloride Carbon Dioxide BUN Creatinine Glucose POC Glucose 119 H Lactic Acid Calcium AST ALT Lactate Dehydrogenase Total Creatine Kinase CK-MB (CK-2) CK-MB (CK-2) Rel Index Troponin T C-Reactive Protein NT-Pro-B Natriuret Pep Total Protein Albumin Triglycerides HDL Cholesterol Arterial Blood Glucose 153 H Arterial Blood Ionized Calcium Urine Creatinine Urine Chloride Crossmatch 11/12/20 11/13/20 11/13/20 23:49 02:11 02:11 WBC 15.9 H RBC 2.38 L Hgb 7.1 L Hct 21.3 L Plt Count Lymph % (Auto) [place] % (Auto) 8.9 H [place] # (Auto) 1.4 H Seg Neutrophils % 73.5 H Seg Neuts % (Manual) Lymphocytes % (Manual) Seg Neutrophils # 11.7 H Seg Neutrophils # Man Lymphocytes # (Manual) PT INR APTT Fibrinogen D-Dimer Heparin Anti-Xa Level ABG pH POC ABG pO2 ABG pO2 ABG HCO3 ABG O2 Saturation ABG Base Excess ABG Hemoglobin ABG Oxyhemoglobin ABG Sodium ABG Potassium ABG Chloride ABG Glucose Oxyhemoglobin Carboxyhemoglobin Sodium Potassium Chloride 109.8 H Carbon Dioxide 18 L BUN 26 H Creatinine 2.3 H Glucose 109 H POC Glucose 118 H Lactic Acid Calcium 7.7 L AST ALT Lactate Dehydrogenase Total Creatine Kinase CK-MB (CK-2) CK-MB (CK-2) Rel Index Troponin T C-Reactive Protein NT-Pro-B Natriuret Pep Total Protein Albumin Triglycerides HDL Cholesterol Arterial Blood Glucose Arterial Blood Ionized Calcium Urine Creatinine Urine Chloride Crossmatch 11/13/20 11/13/20 11/13/20 04:03 06:01 07:50 WBC RBC Hgb 7.7 L Hct 23.3 L Plt Count Lymph % (Auto) [place] % (Auto) [place] # (Auto) Seg Neutrophils % Seg Neuts % (Manual) Lymphocytes % (Manual) Seg Neutrophils # Seg Neutrophils # Man Lymphocytes # (Manual) PT INR APTT Fibrinogen D-Dimer Heparin Anti-Xa Level ABG pH POC ABG pO2 145.7 H ABG pO2 ABG HCO3 ABG O2 Saturation ABG Base Excess ABG Hemoglobin 7.2 L ABG Oxyhemoglobin ABG Sodium 135.3 L ABG Potassium ABG Chloride 113.0 H ABG Glucose 108 H Oxyhemoglobin Carboxyhemoglobin Sodium Potassium Chloride Carbon Dioxide BUN Creatinine Glucose POC Glucose 108 H Lactic Acid Calcium AST ALT Lactate Dehydrogenase Total Creatine Kinase CK-MB (CK-2) CK-MB (CK-2) Rel Index Troponin T C-Reactive Protein NT-Pro-B Natriuret Pep Total Protein Albumin Triglycerides HDL Cholesterol Arterial Blood Glucose 108 H Arterial Blood Ionized Calcium 4.3 L Urine Creatinine Urine Chloride Crossmatch 11/13/20 12:00 WBC RBC Hgb Hct Plt Count Lymph % (Auto) [place] % (Auto) [place] # (Auto) Seg Neutrophils % Seg Neuts % (Manual) Lymphocytes % (Manual) Seg Neutrophils # Seg Neutrophils # Man Lymphocytes # (Manual) PT INR APTT Fibrinogen D-Dimer Heparin Anti-Xa Level ABG pH POC ABG pO2 ABG pO2 ABG HCO3 ABG O2 Saturation ABG Base Excess ABG Hemoglobin ABG Oxyhemoglobin ABG Sodium ABG Potassium ABG Chloride ABG Glucose Oxyhemoglobin Carboxyhemoglobin Sodium Potassium Chloride Carbon Dioxide BUN Creatinine Glucose POC Glucose 147 H Lactic Acid Calcium AST ALT Lactate Dehydrogenase Total Creatine Kinase CK-MB (CK-2) CK-MB (CK-2) Rel Index Troponin T C-Reactive Protein NT-Pro-B Natriuret Pep Total Protein Albumin Triglycerides HDL Cholesterol Arterial Blood Glucose Arterial Blood Ionized Calcium Urine Creatinine Urine Chloride Crossmatch Chest x-ray: image reviewed (no new infiltrate) Allied health notes reviewed: nursing
--- NOTE | 2020-11-13 13:58 | Progress Note ---
Assessment and Plan 84-year-old female with hypertension obesity suffered a cardiac arrest secondary to large pulmonary embolism with RV dysfunction and failure with a non-ST elevation [place] hypotension and acute renal sufficiency Acute respiratory failure with hypoxia * Patient intubated * Pulmonology is following Non-STEMI (non-ST elevated myocardial infarction) Acute pulmonary embolism with acute cor pulmonale Atrial fibrillation * Anticoagulated with Heparin gtt * Patient currently sinus rhythm * Echo 11/10/2020-EF 50 to 55%, right ventricular systolic function is normal, right ventricle is mildly dilated, left atrium not well visualized, mild mitral regurgitation, moderate pulmonary hypertension Acute kidney injury * Nephrology currently following Anemia * GI following * Patient received PRBC yesterday HgB improved Plan: Levophed stopped. Continue supportive therapy. Will continue to follow Patient seen in conjunction with Dr. Gray who agrees with this plan of care. 30min of critical care time spent in the coordination of care for this patient - Patient Problems (1) Acute kidney injury Current Visit: Yes Status: Acute (2) Acute pulmonary embolism with acute cor pulmonale Current Visit: Yes Status: Acute Qualifiers: Pulmonary embolism type: saddle Qualified Code(s): I26.02 - Saddle embolus of pulmonary artery with acute cor pulmonale (3) Acute respiratory failure with hypoxia Current Visit: Yes Status: Acute (4) Atrial fibrillation Current Visit: Yes Status: Acute Qualifiers: Atrial fibrillation type: persistent (not longstanding) Qualified Code(s): I48.19 - Other persistent atrial fibrillation; I48.1 - Persistent atrial fibrillation (5) Cardiopulmonary arrest Current Visit: Yes Status: Acute (6) Hypokalemia Current Visit: Yes Status: Acute (7) Non-STEMI (non-ST elevated myocardial infarction) Current Visit: Yes Status: Acute (8) RBBB Current Visit: Yes Status: Acute (9) Upper GI hemorrhage Current Visit: Yes Status: Acute Subjective Date of service: 11/13/20 Principal diagnosis: Ac. hypoxemic resp failure; P.E.; PNA; Cardiac arrest; TYLER; Shock Interval history: Patient lying in bed intubated. Sinus tach 80s on monitor Objective Vital Signs Temp Pulse Pulse Resp BP Pulse Ox 11/13/20 13:15 82 19 150/73 100 11/13/20 13:00 82 20 149/67 100 11/13/20 12:45 90 18 149/71 100 11/13/20 12:30 88 19 151/61 100 11/13/20 12:18 89 144/63 100 11/13/20 12:16 90 11/13/20 12:15 82 17 144/63 100 11/13/20 12:00 99.0 F 89 21 135/62 100 11/13/20 11:45 90 11 L 140/62 100 11/13/20 11:30 95 H 19 131/53 100 11/13/20 11:15 88 20 128/61 100 11/13/20 11:00 89 21 130/65 100 11/13/20 10:45 89 20 127/63 99 11/13/20 10:30 88 20 130/63 98 11/13/20 10:15 95 H 20 146/69 99 11/13/20 10:00 98 H 15 149/64 100 11/13/20 09:45 82 13 134/59 100 11/13/20 09:30 79 19 125/55 100 11/13/20 09:15 87 20 136/59 100 11/13/20 09:00 80 20 128/57 100 11/13/20 08:45 81 20 126/60 11/13/20 08:36 77 124/58 100 11/13/20 08:31 75 20 124/58 100 11/13/20 08:15 76 20 121/56 100 11/13/20 08:00 99.0 F 76 22 121/56 99 11/13/20 07:45 78 20 124/57 99 11/13/20 07:30 80 20 126/63 100 11/13/20 07:15 77 20 122/54 99 11/13/20 07:00 87 20 126/57 99 11/13/20 06:45 92 H 17 128/59 100 11/13/20 06:30 86 20 123/54 99 11/13/20 06:15 92 H 20 135/58 98 11/13/20 06:00 99 H 20 142/71 97 11/13/20 05:45 107 H 19 130/71 97 11/13/20 05:31 92 H 18 130/71 100 11/13/20 05:15 79 20 111/60 100 11/13/20 05:00 77 16 116/56 98 11/13/20 04:45 89 15 97/50 97 11/13/20 04:30 80 20 97/50 99 11/13/20 04:25 20 99 11/13/20 04:15 80 20 105/52 99 11/13/20 04:05 77 100 11/13/20 04:00 99.0 F 77 20 111/48 100 11/13/20 03:45 87 20 115/59 100 11/13/20 03:31 74 20 88/31 100 11/13/20 03:15 87 20 102/50 100 11/13/20 03:00 79 20 108/54 100 11/13/20 02:45 81 20 118/56 100 11/13/20 02:30 80 20 119/57 100 11/13/20 02:15 88 20 129/62 100 11/13/20 02:00 81 21 120/58 100 11/13/20 01:45 79 20 115/56 100 11/13/20 01:30 80 20 125/57 100 11/13/20 01:15 79 20 111/63 100 11/13/20 01:00 79 20 119/55 100 11/13/20 00:45 77 21 106/59 100 11/13/20 00:30 78 20 112/55 100 11/13/20 00:15 78 20 113/54 100 11/13/20 00:01 78 19 126/57 99 11/13/20 00:00 99.0 F 82 20 126/57 99 11/12/20 23:57 85 99 11/12/20 23:48 89 11 L 133/68 99 11/12/20 23:44 79 20 136/70 99 11/12/20 23:00 78 20 137/68 100 11/12/20 22:00 82 21 131/67 99 11/12/20 21:42 20 11/12/20 21:00 93 H 20 139/78 98 11/12/20 20:00 99.3 F 94 H 21 125/65 98 11/12/20 19:00 85 20 112/51 99 11/12/20 18:00 91 H 20 125/62 100 11/12/20 17:00 78 20 106/51 100 11/12/20 16:50 84 117/55 94 11/12/20 16:00 99.2 F 100 H 93 H 11 L 129/76 95 11/12/20 15:00 93 H 13 143/70 96 11/12/20 14:11 99 H 14 159/74 97 11/12/20 14:00 93 H 12 159/74 97 - Physical Examination General: Other (patient intubated) HEENT: Positive: PERRL Neck: Positive: neck supple Cardiac: Positive: Reg Rate and Rhythm Lungs: Positive: Ventilated Respirations Neuro: Positive: Other (patient intubated ) Abdomen: Positive: Soft Skin: Negative: Rash, Suspicious Lesions, Ulceration Extremities: Present: normal. Absent: edema - Labs and Meds CBC 11/13/20 11/13/20 Range/Units 02:11 07:50 WBC 15.9 H (4.5-11.0) K/mm3 RBC 2.38 L (3.65-5.03) M/mm3 Hgb 7.1 L 7.7 L (10.1-14.3) gm/dl Hct 21.3 L 23.3 L (30.3-42.9) % Plt Count 142 (140-440) K/mm3 Lymph # (Auto) 2.4 (1.2-5.4) K/mm3 [place] # (Auto) 1.4 H (0.0-0.8) K/mm3 Eos # (Auto) 0.2 (0.0-0.4) K/mm3 Baso # (Auto) 0.1 (0.0-0.1) K/mm3 Comprehensive Metabolic Panel 11/13/20 Range/Units 02:11 Sodium 138 (137-145) mmol/L Potassium 4.1 (3.6-5.0) mmol/L Chloride 109.8 H (98-107) mmol/L Carbon Dioxide 18 L (22-30) mmol/L BUN 26 H (7-17) mg/dL Creatinine 2.3 H (0.6-1.2) mg/dL Glucose 109 H (65-100) mg/dL Calcium 7.7 L (8.4-10.2) mg/dL - Imaging and Cardiology EKG: report reviewed Echo: report reviewed - Telemetry EKG Rhythm: Sinus Rhythm - EKG Sinus rhythms and dysrhythmias: sinus rhythm - Allied health notes Allied health notes reviewed: nursing
[2020-11-13 14:38] LABS: Hematocrit 22.6 % (30.3-42.9); Hemoglobin 7.5 gm/dl (10.1-14.3)
--- NOTE | 2020-11-13 18:59 | Progress Note ---
Assessment and Plan Assessment and plan: This 84-year-old female with HTN, CKD, chronic right BBB, arthritis admitted s/P cardiac arrest, pulmonary embolism , Pneumonia and GI bleed Neuro: Acute metabolic encephalopathy -CT head completed which shows no acute intracranial abnormality, probable meningioma along the right anterior frontal lobe -Avoid delirium -Sedated with propofol and fentanyl -RASS goal 0 to -1 -Bilateral restraints for safety -Patient is awake, follows commands, positive track/focus, pupils equal round reactive -Neurology consulted, patient recommendations -Per neurology obtain MRI with [facility] when possible Cardio: S/p cardiopulmonary arrest, atrial fibrillation, acute diastolic heart failure -Cardiology consulted, appreciate recommendations -Echo 11/10/2020-EF 50 to 55%, right ventricular systolic function is normal, right ventricle is mildly dilated, left atrium not well visualized, mild mitral regurgitation, moderate pulmonary hypertension -Vasopressor support with Levophed -s/p dopamine and dobutamine with IVF -Blood pressure monitoring per protocol -As needed hydralazine Respiratory: Acute hypoxic respiratory failure, acute pulmonary medicine with acute cor pulmonale -[facility] consulted, appreciate recommendations -Intubated 11/09 with 7.0 at 22 at the lip -A.m. vent settings: AC rate 20, TV 450, PEEP 6, FiO2 30% -placed on CPAP this am -See respiratory notes for titration -Serial CXR and ABGs -A.m. ABG reviewed -VAP bundle GI: Upper GI hemorrhage, elevated LFTs -GI consulted, appreciate recommendations -s/p Protonix drip till 9 PM and now on Protonix IV BID -Hepatic serologies pending, hepatic panel ordered -Per GI will reassess for EGD if patient develops severe GI bleeding -BR: Senokot -24-hour net balance +[id number] -Trend LFT -Gastric occult positive : Acute kidney injury, metabolic acidosis -Nephrology consulted, appreciate recommendations -Likely prerenal injury in setting of acute bilateral pulmonary embolism with cor pulmonale and right-sided heart failure -Gentle IV hydration -Renal ultrasound showed no evidence of obstructive PE, bilateral echogenic k idneys -No indication for renal replacement at this time per nephrology -Urine electrolytes -Strict intake and output -Daily weights -Avoid nephrotoxic medications -Trend BMP ID: Bilateral pneumonia, SIRS, lactic acidosis -Empiric antibiotics with Rocephin and azithromycin (11/09-11/13) -Monitor fever and WBC curve -CXR noted with worsening bilateral airspace disease -Tracheal aspirate with staph aureus-> await speciation for possible treatment Heme: Large bilateral segmental and subsegmental PE, thrombocytopenia, coagulopathy, anemia, Left LE DVT -Vascular surgery consulted, appreciate recommendations -S/p pulmonary angiography with placement of thrombolytic catheters -Protonix BID -Heparin drip -Transfuse for hemoglobin less than 7 -S/p 1 unit PRBC Endo: NAD -Accucheck q6 -Avoid hypoglycemia The high probability of a clinically significant, sudden or life threatening deterioration of the [multi] system(s) required my full and direct attention, intervention and personal management. The aggregate critical care time was [60] minutes. This time is in addition to time spent performing reported procedures but includes the following: [x] Data Review and interpretation [x] Patient assessment and monitoring of vital signs [x] Documentation [x] Medication orders and management Disposition Plan: icu Total Time Spent with Patient (Minutes): 60 History Interval history: This is a 84-year-old female with HTN, CKD, chronic RBBB, arthritis who presented to the emergency department on 11/09 from the department With valuation of difficulty breathing and shortness of breath. Upon arrival to the emergency department patient was actively unresponsive and positive pressure ventilation was started and subsequently had a cardiac arrest with eventual ROSC. Work-up emergency department revealed elevated D-dimer of greater than 10,000, elevated lactic acid, CTA showed bilateral segmental and subsegmental emboli with right heart strain, bibasilar airspace consolidation and trace right pleural effusion compatible with pneumonia. Vascular surgery was consulted for thrombolysis. Patient was admitted to the hospitalist service with consults to [facility], cardiology, nephrology and gastroenterology. 11/10: Patient seen and examined this morning review of her electrolytes shows some abnormalities with noted worsening renal failure in the setting of hypotension. Noted A. fib on EKG. Patient remains on EKOS system. Will obtain cardiology and nephrology evaluation. Echocardiogram to further evaluate condition of the heart in the setting of her cardiac arrest. Patient remains a PUI Covid testing is pending. Discussed with pathology technologist this morning may consider changing from dopamine to dobutamine but will await cardiology evaluation. Possible further hydration in the setting of underlying right heart failure. I did discuss with the family who are not aware of any renal problems in the past. Ventilator management per life enrichment director. Closely monitor leukocytosis no fever noted at this time. I will replace po tassium as noted hypokalemia Discussed with family the two daughters in detail 11/11: Patient is having blood-tinged secretions while suctioning, NG tube to dark secretions, gastric occult sent. PICC line ordered to be placed. Cardiology to change dopamine to dobutamine and start normal saline. No plans for hemodialysis per nephrology. 11/12: CPAP trial, PICC placement today and will remove femoral line after placement. No indication for renal replacement per nephrology. BLE doppler US per vascular. 11/13: Patient tolerating CPAP trial, per neurology consider MRI brain with Manuel, patient has staph areas in tracheal aspirate, appropriate response to PRBC, remains off vasopressors, worsening renal function. Hospitalist Physical - Constitutional Vitals: Temp Pulse Resp BP Pulse Ox 99.0 F 81 17 174/70 99 11/13/20 12:00 11/13/20 18:15 11/13/20 18:15 11/13/20 18:15 11/13/20 18:15 General appearance: Present: no acute distress, other (Intubated) - EENT Eyes: Present: PERRL, EOM intact ENT: hearing intact, dentition normal - Neck Neck: Present: supple, normal ROM - Respiratory Respiratory effort: normal Respiratory: bilateral: diminished - Cardiovascular Rhythm: regular Heart Sounds: Present: S1 & S2 - Extremities Extremities: no ischemia, pulses intact, pulses symmetrical, No edema, normal t emperature, normal color, Full ROM Peripheral Pulses: within normal limits - Abdominal General gastrointestinal: soft, non-tender, non-distended, normal bowel sounds - Integumentary Integumentary: Present: warm, dry - Psychiatric Psychiatric: cooperative - Neurologic Neurologic: moves all extremities - Allied Health Allied health notes reviewed: nursing, RT, social work HEART Score - HEART Score Troponin: Troponin T 0.873 ng/mL (0.00-0.029) H* D 11/09/20 23:05 Results - Labs CBC & Chem 7: 11/13/20 14:30 11/13/20 02:11 Labs: Laboratory Last Values WBC 15.9 K/mm3 (4.5-11.0) H 11/13/20 02:11 RBC 2.38 M/mm3 (3.65-5.03) L 11/13/20 02:11 Hgb 7.5 gm/dl (10.1-14.3) L 11/13/20 14:30 Hct 22.6 % (30.3-42.9) L 11/13/20 14:30 MCV 90 fl (79-97) 11/13/20 02:11 MCH 30 pg (28-32) 11/13/20 02:11 MCHC 33 % (30-34) 11/13/20 02:11 RDW 15.2 % (13.2-15.2) 11/13/20 02:11 Plt Count 142 K/mm3 (140-440) 11/13/20 02:11 Lymph % (Auto) 15.4 % (13.4-35.0) 11/13/20 02:11 [place] % (Auto) 8.9 % (0.0-7.3) H 11/13/20 02:11 Eos % (Auto) 1.5 % (0.0-4.3) 11/13/20 02:11 Baso % (Auto) 0.7 % (0.0-1.8) 11/13/20 02:11 Lymph # (Auto) 2.4 K/mm3 (1.2-5.4) 11/13/20 02:11 Wake # (Auto) 1.4 K/mm3 (0.0-0.8) H 11/13/20 02:11 Eos # (Auto) 0.2 K/mm3 (0.0-0.4) 11/13/20 02:11 Baso # (Auto) 0.1 K/mm3 (0.0-0.1) 11/13/20 02:11 Add Manual Diff Complete 11/10/20 04:28 Total Counted 100 11/10/20 04:28 Seg Neutrophils % 73.5 % (40.0-70.0) H 11/13/20 02:11 Seg Neuts % (Manual) 96.0 % (40.0-70.0) H 11/10/20 04:28 Lymphocytes % (Manual) 1.0 % (13.4-35.0) L 11/10/20 04:28 Monocytes % (Manual) 3.0 % (0.0-7.3) 11/10/20 04:28 Nucleated RBC % Not Reportable 11/10/20 04:28 Seg Neutrophils # 11.7 K/mm3 (1.8-7.7) H 11/13/20 02:11 Seg Neutrophils # Man 17.0 K/mm3 (1.8-7.7) H 11/10/20 04:28 Band Neutrophils # 0.0 K/mm3 11/10/20 04:28 Lymphocytes # (Manual) 0.2 K/mm3 (1.2-5.4) L 11/10/20 04:28 Abs React Lymphs (Man) 0.0 K/mm3 11/10/20 04:28 Monocytes # (Manual) 0.5 K/mm3 (0.0-0.8) 11/10/20 04:28 Eosinophils # (Manual) 0.0 K/mm3 (0.0-0.4) 11/10/20 04:28 Basophils # (Manual) 0.0 K/mm3 (0.0-0.1) 11/10/20 04:28 Metamyelocytes # 0.0 K/mm3 11/10/20 04:28 Myelocytes # 0.0 K/mm3 11/10/20 04:28 Promyelocytes # 0.0 K/mm3 11/10/20 04:28 Blast Cells # 0.0 K/mm3 11/10/20 04:28 WBC Morphology Not Reportable 11/10/20 04:28 Hypersegmented Neuts Not Reportable 11/10/20 04:28 Hyposegmented Neuts Not Reportable 11/10/20 04:28 Hypogranular Neuts Not Reportable 11/10/20 04:28 Smudge Cells Not Reportable 11/10/20 04:28 Toxic Granulation Not Reportable 11/10/20 04:28 Toxic Vacuolation Not Reportable 11/10/20 04:28 Dohle Bodies Not Reportable 11/10/20 04:28 Pelger-Huet Anomaly Not Reportable 11/10/20 04:28 Carmen Rods Not Reportable 11/10/20 04:28 Platelet Estimate Consistent w auto 11/10/20 04:28 Clumped Platelets Not Reportable 11/10/20 04:28 Plt Clumps, EDTA Not Reportable 11/10/20 04:28 Large Platelets Not Reportable 11/10/20 04:28 Giant Platelets Not Reportable 11/10/20 04:28 Platelet Satelliting Not Reportable 11/10/20 04:28 Plt Morphology Comment Not Reportable 11/10/20 04:28 RBC Morphology Not Reportable 11/10/20 04:28 Dimorphic RBCs Not Reportable 11/10/20 04:28 Polychromasia Not Reportable 11/10/20 04:28 Hypochromasia Not Reportable 11/10/20 04:28 Poikilocytosis Not Reportable 11/10/20 04:28 Anisocytosis 1+ 11/10/20 04:28 Microcytosis Not Reportable 11/10/20 04:28 Macrocytosis Not Reportable 11/10/20 04:28 Spherocytes Not Reportable 11/10/20 04:28 Pappenheimer Bodies Not Reportable 11/10/20 04:28 Sickle Cells Not Reportable 11/10/20 04:28 Target Cells Not Reportable 11/10/20 04:28 Tear Drop Cells Not Reportable 11/10/20 04:28 Ovalocytes Not Reportable 11/10/20 04:28 Helmet Cells Not Reportable 11/10/20 04:28 [place] Bodies Not Reportable 11/10/20 04:28 [place] Rings Not Reportable 11/10/20 04:28 [place] Cells Not Reportable 11/10/20 04:28 Bite Cells Not Reportable 11/10/20 04:28 Crenated Cell Not Reportable 11/10/20 04:28 Elliptocytes Not Reportable 11/10/20 04:28 Acanthocytes (Spur) Not Reportable 11/10/20 04:28 Rouleaux Not Reportable 11/10/20 04:28 Hemoglobin C Crystals Not Reportable 11/10/20 04:28 Schistocytes Not Reportable 11/10/20 04:28 Malaria parasites Not Reportable 11/10/20 04:28 [place] Bodies Not Reportable 11/10/20 04:28 Hem Pathologist Commnt No 11/10/20 04:28 PT 17.6 Sec. (12.2-14.9) H 11/12/20 04:26 INR 1.40 (0.87-1.13) H 11/12/20 04:26 APTT 162.1 Sec. (24.2-36.6) H* 11/12/20 04:26 Fibrinogen 299 mg/dl (211-480) 11/10/20 15:08 D-Dimer > 49834 ng/mlDDU (0-234) H 11/10/20 04:28 Heparin Anti-Xa Level 0.32 U.I./ml (0.3-0.7) 11/13/20 11:07 ABG pH 7.345 (7.320-7.450) 11/13/20 04:03 POC ABG pCO2 33.5 mmHg (32.0-48.0) 11/13/20 04:03 ABG pCO2 29.4 mm Hg 11/11/20 09:45 POC ABG pO2 145.7 mmHg (83-108) H 11/13/20 04:03 ABG pO2 172.4 mm Hg (80.0-90.0) H 11/11/20 09:45 POC ABG HCO3 17.9 11/13/20 04:03 ABG HCO3 16.7 mmol/L (20.0-26.0) L 11/11/20 09:45 ABG O2 Saturation 98.8 (0-100) 11/13/20 04:03 ABG O2 Content 8.8 (0.0-44) 11/11/20 09:45 POC ABG Base Excess -7.1 11/13/20 04:03 ABG Base Excess -7.9 mmol/L (-2.0-3.0) L 11/11/20 09:45 ABG Hemoglobin 7.2 (12.0-17.5) L 11/13/20 04:03 ABG Oxyhemoglobin 97.8 (94-98) 11/13/20 04:03 ABG Carboxyhemoglobin 0.9 % (0.0-5.0) 11/11/20 09:45 ABG Methemoglobin 0.3 (0.0-1.5) 11/13/20 04:03 ABG Sodium 135.3 mmol/L (136.0-145.0) L 11/13/20 04:03 ABG Potassium 3.7 mmol/L (3.40-4.50) 11/13/20 04:03 ABG Chloride 113.0 mmol/L (98-107) H 11/13/20 04:03 ABG Glucose 108 mg/dL (65-95) H 11/13/20 04:03 Oxyhemoglobin 97.8 % (95.0-99.0) 11/11/20 09:45 Carboxyhemoglobin 0.7 (0.5-1.5) 11/13/20 04:03 FiO2 55 % 11/11/20 09:45 FiO2 % 40.0 11/13/20 04:03 Sodium 138 mmol/L (137-145) 11/13/20 02:11 Potassium 4.1 mmol/L (3.6-5.0) 11/13/20 02:11 Chloride 109.8 mmol/L (98-107) H 11/13/20 02:11 Carbon Dioxide 18 mmol/L (22-30) L 11/13/20 02:11 Anion Gap 14 mmol/L 11/13/20 02:11 BUN 26 mg/dL (7-17) H 11/13/20 02:11 Creatinine 2.3 mg/dL (0.6-1.2) H 11/13/20 02:11 Estimated GFR 24 ml/min 11/13/20 02:11 BUN/Creatinine Ratio 11 % 11/13/20 02:11 Glucose 109 mg/dL (65-100) H 11/13/20 02:11 POC Glucose 110 mg/dL (70-105) H 11/13/20 17:10 Lactic Acid 1.20 mmol/L (0.7-2.0) 11/11/20 23:20 Calcium 7.7 mg/dL (8.4-10.2) L 11/13/20 02:11 Total Bilirubin 0.30 mg/dL (0.1-1.2) 11/11/20 04:35 Direct Bilirubin < 0.2 mg/dL (0-0.2) 11/09/20 17:24 Indirect Bilirubin 0.1 mg/dL 11/09/20 17:24 AST 232 units/L (5-40) H 11/11/20 04:35 ALT 309 units/L (7-56) H 11/11/20 04:35 Alkaline Phosphatase 92 units/L (35-129) 11/11/20 04:35 Lactate Dehydrogenase 1637 units/L (91-180) H 11/10/20 04:28 Total Creatine Kinase 449 units/L (30-135) H 11/09/20 23:05 CK-MB (CK-2) 18.4 ng/mL (0.0-4.0) H 11/09/20 23:05 CK-MB (CK-2) Rel Index 4.0 (0-4) 11/09/20 23:05 Troponin T 0.873 ng/mL (0.00-0.029) H* D 11/09/20 23:05 C-Reactive Protein 3.50 mg/dL (0.00-1.30) H 11/10/20 04:28 NT-Pro-B Natriuret Pep 1169 pg/mL (0-900) H 11/09/20 17:24 Total Protein 5.7 g/dL (6.3-8.2) L 11/11/20 04:35 Albumin 2.7 g/dL (3.9-5) L 11/11/20 04:35 Albumin/Globulin Ratio 0.9 % 11/11/20 04:35 Triglycerides 163 mg/dL (2-149) H 11/09/20 17:24 Cholesterol 118 mg/dL (50-199) 11/09/20 17:24 LDL Cholesterol Direct 72 mg/dL (50-130) 11/09/20 17:24 HDL Cholesterol 29 mg/dL (40-59) L 11/09/20 17:24 Cholesterol/HDL Ratio 4.06 % 11/09/20 17:24 Procalcitonin 9.69 ng/mL (<0.15) 11/10/20 04:28 Arterial Blood Glucose 108 mg/dL (65-95) H 11/13/20 04:03 Arterial Blood Ionized Calcium 4.3 mg/dL (4.6-5.3) L 11/13/20 04:03 Urine Color Straw (Yellow) 11/09/20 19:07 Urine Turbidity Clear (Clear) 11/09/20 19:07 Urine pH 7.0 (5.0-7.0) 11/09/20 19:07 Ur Specific [place] 1.003 (1.003-1.030) 11/09/20 19:07 Urine Protein <15 mg/dl mg/dL (Negative) 11/09/20 19:07 Urine Glucose (UA) Neg mg/dL (Negative) 11/09/20 19:07 Urine Ketones Neg mg/dL (Negative) 11/09/20 19:07 Urine Blood Mod (Negative) 11/09/20 19:07 Urine Nitrite Neg (Negative) 11/09/20 19:07 Urine Bilirubin Neg (Negative) 11/09/20 19:07 Urine Urobilinogen < 2.0 mg/dL (<2.0) 11/09/20 19:07 Ur Leukocyte Esterase Neg (Negative) 11/09/20 19:07 Urine WBC (Auto) 2.0 /HPF (0.0-6.0) 11/09/20 19:07 Urine RBC (Auto) 2.0 /HPF (0.0-6.0) 11/09/20 19:07 U Epithel Cells (Auto) 1.0 /HPF (0-13.0) 11/09/20 19:07 Urine Bacteria (Auto) 1+ /HPF (Negative) 11/09/20 19:07 Urine Creatinine 80.9 mg/dL (0.1-20.0) H 11/10/20 11:06 Urine Sodium 48 mmol/L 11/10/20 11:06 Urine Chloride 38.8 mmolL (110-250) L 11/10/20 11:06 Urine Opiates Screen Negative 11/09/20 19:07 Urine Methadone Screen Negative 11/09/20 19:07 Ur Barbiturates Screen Negative 11/09/20 19:07 Ur Phencyclidine Scrn Negative 11/09/20 19:07 Ur Amphetamines Screen Negative 11/09/20 19:07 U Benzodiazepines Scrn Negative 11/09/20 19:07 Urine Cocaine Screen Negative 11/09/20 19:07 U Marijuana (THC) Screen Negative 11/09/20 19:07 Drugs of Abuse Note Disclamer 11/09/20 19:07 Coronavirus (PCR) Negative (Negative) 11/10/20 Unknown Hepatitis A IgM Ab Nonreactive (NonReactive) 11/12/20 12:34 Hep Bs Antigen Nonreactive (Negative) 11/12/20 12:34 Hepatitis C Antibody Nonreactive (NonReactive) 11/12/20 12:34 Blood Type O POSITIVE 11/09/20 17:24 Antibody Screen Negative 11/09/20 17:24 Crossmatch See Detail 11/09/20 17:24 Microbiology: Microbiology 11/12/20 08:30 Tracheal Aspirate Sputum Culture - Preliminary Staphylococcus Aureus 11/09/20 23:05 Peripheral/Venous Blood Culture - Preliminary NO GROWTH AFTER 72 HOURS 11/09/20 22:59 Peripheral/Venous Blood Culture - Preliminary NO GROWTH AFTER 72 HOURS Gonsalves/IV: Voiding Method Indwelling Catheter Active Medications - Current Medications Current Medications: Generic Name Dose Route Start Last Admin Trade Name Freq PRN Reason Stop Dose Admin Acetaminophen 650 mg 11/09/20 23:07 Acetaminophen 650 Mg Rect Supp MO Q6H PRN Pain MILD(1-3)/Fever >100.5/REYES Acetaminophen 650 mg 11/09/20 23:59 Acetaminophen 325 Mg Tab PO Q6H PRN Pain, Mild (1-3) Hydrocodone Bitart/Acetaminophen 2 each 11/09/20 23:59 Hydrocodone/Acetaminophen 5-325 Mg Tab PO Q6H PRN Pain, Moderate (4-6) Lipase/Protease/Amylase 1 each 11/11/20 17:17 Lipase 10,500/Protease 25,000/Amylase 43,750 (Units) Dr Cap FEEDTUBE PRN PRN For Clogged Feeding Tube Dextrose 50 ml 11/11/20 11:10 Dextrose 50% In Water (25gm) 50 Ml Syringe IV Q30MIN PRN Hypoglycemia Protocol Fentanyl 50 mcg 11/09/20 22:37 11/12/20 21:42 Fentanyl 100 Mcg/2 Ml Inj IV 50 mcg Q10MIN PRN Administration ANALGESIA Hydralazine HCl 10 mg 11/10/20 16:49 Hydralazine 20 Mg/1 Ml Inj IV Q6H PRN Blood Pressure Hydrophilic Ointment 1 applic 11/09/20 17:08 Lip Therapy Vaseline TP Q2H PRN Dry Lips Propofol 1,000 mg in 100 mls @ 2.245 mls/hr 11/09/20 18:00 11/12/20 18:55 Diprivan 10 Mg/Ml IV 0 mcg/kg/min TITR MELONY 0 mls/hr Titration Protocol 5 MCG/KG/MIN NORepinephrine/NS 8 MG-250 ML 8 mg in 250 mls @ 3.75 mls/hr 11/09/20 18:00 11/12/20 23:59 Norepinephrine/Ns 8 Mg-250 Ml (Double Conc) IV 0 mcg/min TITRATE MELONY 0 mls/hr Titration Protocol 2 MCG/MIN Fentanyl Citrate 2,000 mcg in 100 mls @ 11.226 mls/hr 11/09/20 23:00 11/13/20 08:39 Fentanyl Drip Premix IV 0 mcg/kg/hr TITR MELONY 0 mls/hr Titration Protocol 3 MCG/KG/HR Heparin Sodium/Sodium Chloride 25,000 unit in 500 mls @ 24 mls/hr 11/10/20 12:00 11/13/20 11:07 Heparin/ 0.45% Nacl-25,000 Unit/500 Ml IV 800 units/hr TITR MELONY 16 mls/hr Titration Protocol 1,200 UNITS/HR Sodium Chloride 1,000 mls @ 75 mls/hr 11/13/20 10:15 11/13/20 11:45 Nacl 0.9% 1000 Ml IV 11/13/20 23:34 75 mls/hr DIRECT MELONY Administration Dexmedetomidine HCl 400 mcg/ 104 mls @ 4.231 mls/hr 11/13/20 15:00 Sodium Chloride IV TITRATE MELONY Protocol 0.2 MCG/KG/HR Insulin Human Regular 0 units 11/11/20 12:00 11/13/20 18:31 Insulin Regular, Human 100 Units/1 Ml SUB-Q Not Given Q6H MELONY Protocol Magnesium Hydroxide 30 ml 11/09/20 23:07 Magnesium Hydroxide (Mom) Oral Liqd Udc PO Q4H PRN Constipation Multi-Ingred Cream/Lotion/Oil/Oint 1 applic 11/09/20 17:08 Mineral Oil/Petrolatum, White Ophth Oint 3.5 Gm OU Q4H PRN Dry Eye(s) Ondansetron HCl 4 mg 11/09/20 23:07 Ondansetron 4 Mg/2 Ml Inj IV Q8H PRN Nausea And Vomiting Pantoprazole Sodium 40 mg 11/11/20 22:00 11/13/20 09:45 Pantoprazole 40 Mg Inj IV 40 mg BID MELONY Administration Senna/Docusate Sodium 1 tab 11/09/20 22:00 11/13/20 09:45 Sennosides/Docusate Sodium 8.6/50 Mg Tab FEEDTUBE 1 tab BID MELONY Administration Simple Syrup 15 ml 11/11/20 17:17 Simple Syrup 15 Ml FEEDTUBE PRN PRN Hypoglycemia Simple Syrup 30 ml 11/11/20 17:17 Simple Syrup 15 Ml FEEDTUBE PRN PRN Hypoglycemia Sodium Bicarbonate 325 mg 11/11/20 17:17 Sodium Bicarbonate 325 Mg Tab FEEDTUBE PRN PRN For Clogged Feeding Tube Sodium Chloride 10 ml 11/10/20 10:00 11/13/20 09:49 Sodium Chloride 0.9% 10 Ml Flush Syringe IV 10 ml BID MELONY Administration Sodium Chloride 10 ml 11/09/20 23:07 Sodium Chloride 0.9% 10 Ml Flush Syringe IV PRN PRN LINE FLUSH Nutrition/Malnutrition Assess - Dietary Evaluation Nutrition/Malnutrition Findings: Nutrition Notes Start: 11/10/20 09:17 Freq: Status: Active Protocol: Document 11/11/20 16:39 GB (Rec: 11/11/20 16:53 GB [id number]) Nutrition Notes Initial or Follow up Reassessment Current Diagnosis CKD(stage I-IV),Hypertension Other Pertinent Diagnosis pneu, cardiopulmonary arrest, SIRS, acute diastolic heart failure Current Diet NPO, TF ordered Labs/Tests 11/11: Na 136, BUN 25, creatinine 2.5, glucose 192, Ca 7.6, AST 232, ALT 309 Pertinent Medications Azithromycin, dobutmine Hcl/D5 x 6.075ml/hr (25kcal), Fentanyl, Norepinephrine/Ns8 Mg250, Propofol at 3.592 ml/hr (95 kcal), NaCl Height 5 ft 6 in Weight 81 kg [place] Body Weight (kg) 59.09 BMI 28.8 Weight change and time frame stable at this time Weight Status Overweight Subjective/Other Information MD consult for diet education. Due to advanced age and vent status, pt not appropriate. Pt on hold in ED. 11/11 in cc1. orders for TF, vent continues. NG tube for suction at this time Percent of energy/protein needs met: 0%. NPO continues, NG for suction at this time. Burn Absent Trauma Absent GI Symptoms Other Food Allergy No Skin Integrity/Comment no complications at this time. Current % PO Other Minimum of two criteria No #1 Nutrition Diagnosis Inadequate oral intake Comments: 11/11: vent continues, TF orders entered Etiology ARF As Evidenced by Signs and Symptoms pt on vent and unable to consume PO Diagnosis Progress(for reassessment Continues documentation) Is patient on ventilator? Yes Is Patient Ambulatory and/or Out of Bed No REE-([facility]-confined to bed) 1533.288 Kcal/Kg value to use for calculation 22 Approximate Energy Requirements Using 1782 kcal/Kg Calculation Used for Recommendations Kcal/kg Additional Notes Protein: (1.2-1.5g/kg @ 81kg) 97-121g Fluid: 1 ml/kcal or per MD Nutrition Intervention Change Diet Order: Advance as able Nutrition Support: Recommend TF: Vital AF 1.2 at 50 ml/hr Kcal 1,440 Protein (gm) 90 Fluid (mL) 973 Goal #1 Diet advancement or TF start 11/11: TF orders entered Vital 1.2 AF @ 50ml/hr, flush 100ml/ 4hr Goal #2 TF at goal rate 50ml/hr and tolerated Anticipated Discharge Needs: Unable to determine at this time Follow-Up By: 11/15/20 Additional Comments f/u: TF tolerance, at goal of 50ml/hr
[2020-11-13] MEDS: hydrALAZINE 20 MG/1 ML INJ IV PRN (20:33)
[2020-11-13 21:27] LABS: ABG Base Excess -6.1 mmol/L (-2.0-3.0); ABG HCO3 18.6 mmol/L (20.0-26.0); ABG Methemoglobin 0.4 % (0.0-1.5); ABG Oxygen Saturation 97.4 % (95.0-99.0); ABG PCO2 33.6 mm Hg; ABG PH 7.36 pH Units (7.350-7.450); ABG PO2 97.2 mm Hg (80.0-90.0)
[2020-11-13] MEDS: METOPROLOL TARTRATE 5 MG/5 ML INJ IV SCH (23:16)
[2020-11-14] MEDS: hydrALAZINE 20 MG/1 ML INJ IV PRN ×2 (03:45→15:18)
--- NOTE | 2020-11-14 04:05 | XRay Report ---
CHEST 1 VIEW INDICATION / CLINICAL INFORMATION: follow up respiratory failure. Dyspnea FINDINGS: SUPPORT DEVICES: No significant change in position. HEART / MEDIASTINUM: The cardiomediastinal silhouette has not significantly changed in the interim. LUNGS / PLEURA: Faint ill-defined densities within the lower lungs have not significantly improved fr om yesterday's exam. No pneumothorax. Signer Name: Leobardo Holloway MD Signed: 11/14/2020 4:01 AM Workstation Name: [email or web address]
[2020-11-14] MEDS: HEPARIN/ 0.45% NACL DRIP 25,000 UNIT/500 ML BAG IV SCH (05:24)
[2020-11-14] MEDS: METOPROLOL TARTRATE 5 MG/5 ML INJ IV SCH (05:55)
[2020-11-14] MEDS: INSULIN REGULAR, HUMAN 100 UNITS/1 ML SUB-Q SCH ×4 (06:58→18:06)
[2020-11-14 07:10] LABS: Hematocrit 23.1 % (30.3-42.9); Hemoglobin 7.8 gm/dl (10.1-14.3); Mean Corpuscular HGB Conc 34 % (30-34); Mean Corpuscular Volume 89 fl (79-97); Platelet Count 164 K/mm3 (140-440); Red Blood Count 2.61 M/mm3 (3.65-5.03); Red Cell Distribution Width 15.1 % (13.2-15.2)
[2020-11-14 07:33] LABS: Albumin 2.7 g/dL (3.9-5); Calcium 8.2 mg/dL (8.4-10.2)
[2020-11-14] MEDS ORDERED: MAGNESIUM SULFATE 4 GM/100 ML BAG IV SCH (09:00)
[2020-11-14] MEDS ORDERED: POTASSIUM PHOSPHATE 40 MMOL in SODIUM CHLORIDE 0.9% 500 ML 500 ML IV SCH (09:30)
[2020-11-14] MEDS ORDERED: amLODIPine 5 MG TAB PO SCH (10:00)
[2020-11-14] MEDS: METOPROLOL TARTRATE 25 MG TAB PO SCH ×2 (10:34→21:22)
[2020-11-14] MEDS: SENNOSIDES/DOCUSATE SODIUM 8.6/50 MG TAB FEEDTUBE SCH ×2 (10:35→21:23)
[2020-11-14] MEDS: PANTOPRAZOLE 40 MG INJ IV SCH ×2 (10:35→21:22)
--- NOTE | 2020-11-14 12:42 | XRay Report ---
ABDOMEN 1 VIEW(S) INDICATION / CLINICAL INFORMATION: NGT placement verification. COMPARISON: CT abdomen 11/09/2020 FINDINGS: TUBES / LINES: NG tube in satisfactory position. BOWEL GAS PATTERN: No significant abnormality. ADDITIONAL FINDINGS: Calcified gallstone and suspected calcified gallbladder which is associated with an increased risk of gallbladder cancer. IVC filter. IVC Filter Recommendation: IVC filters should be removed if possible when they are no longer clinical ly necessary. (1) Refer to the established IVC filter management plan; (2) If there is no established plan for the patient's IVC filter, consider referral to interventional/vascular clinician on a nonem ergent basis for evaluation. Signer Name: Finn Recio MD Signed: 11/14/2020 12:38 PM Workstation Name: [email or web address]
--- NOTE | 2020-11-14 12:49 | Progress Note ---
Assessment and Plan Acute hypoxemic respiratory failure Acute pulmonary embolism bilaterally Bilateral pulmonary infiltrates/pneumonia Cardiac arrest with ROSC [id number] kidney injury Oropharyngeal dysphagia HTN Shock (cardiogenic and hypovolemic) Chronic right bundle-branch block Arthritis Thrombocytopenia Coagulopathy Hypokalemia Severe metabolic acidosis Lactic acidosis Elevated serum transaminases Possible NSTEMI - extubate - Zyvox 600 mg IV q12h till seen by ID team (re: TYLER) - ID consult placed - continue care as below otherwise; - will continue full anticoagulation for now - continue to trend H&H - follow I's & O's; leave prince in place in short term re: critical illness and TYLER - Daily SAT and SBT assessment as tolerated - continue to wean supplemental oxygen for target O2 sat's > 90% acutely - VAP bundle addressed - continue lung protective strategies - continue bronchodilators with pulmonary hygiene per RT - wean per pulmonary driven protocols otherwise - continue accuchecks with glycemic control per SSI (While critically ill target blood glucose of 140-180 mg/dL; avoid hypoglycemia) - sedation prn for target RASS 0 to -1 - avoid nephrotoxins, renally dose all medications - continue to avoid benzodiazepine's, reduce the possibility of delirium - completed AB's per ID rec's - prn analgesia per CPOT score - Maintenance of sleep-wake cycle, avoid delirium - continue enteral nutritional support at goal rate as tolerated - G.I. & VTE prophylaxis - PT/OT/ROM exercises - supportive transfusions for serum Hb < 7.0 - continue mobility protocols for pressure ulcer prophylaxis - Monitor hemodynamics closely - continue other care per attending / other consultants - discharge planning ongoing concurrently COVID SPECIFIC INTERVENTIONS - COVID-19 test negative .... Re-evaluate in am & prn CONDITION: CRITICAL PROGNOSIS: GUARDED CODE STATUS: FULL CODE The high probability of a clinically significant, sudden or life-threatening deterioration of the [respiratory, cardiovascular, GI & neurologic] system(s) required my full and direct attention, intervention and personal management. The aggregate critical care time was [32] minutes without overlap. Time includes spent on; [x] Data Review and interpretation [x] Patient assessment and monitoring of vital signs [x] Documentation [x] Medication orders and management Subjective Date of service: 11/14/20 Principal diagnosis: Ac. hypoxemic resp failure; P.E.; PNA; Cardiac arrest; TYLER; Shock Interval history: Patient is seen today for: Acute hypoxemic respiratory failure; Acute P.E.; Pneumonia; Cardiac arrest with ROSC; TYLER; Shock (cardiogenic and hypovolemic); Thrombocytopenia Seen and examined at bedside; 24hour events reviewed; nursing and respiratory care staff consulted; no adverse overnight events reported to me; resting in bed; doing very well on SBT and ABG acceptable; no bleeding today; H&H holding; denies acute chest pain; no high grade fevers; tracheal aspirate growing MRSA Objective Vital Signs - 12hr 11/14/20 11/14/20 11/14/20 00:45 01:00 01:15 Temperature Pulse Rate 92 H 93 H 95 H Pulse Rate [ From Monitor] Respiratory 23 21 19 Rate Blood Pressure 152/67 138/69 138/69 O2 Sat by Pulse 97 97 97 Oximetry 11/14/20 11/14/20 11/14/20 01:31 01:45 02:00 Temperature Pulse Rate 95 H 99 H 93 H Pulse Rate [ From Monitor] Respiratory 21 22 37 H Rate Blood Pressure 138/69 138/69 160/71 O2 Sat by Pulse 97 97 97 Oximetry 11/14/20 11/14/20 11/14/20 02:15 02:31 02:45 Temperature Pulse Rate 106 H 96 H 95 H Pulse Rate [ From Monitor] Respiratory 21 21 22 Rate Blood Pressure 160/71 160/71 160/71 O2 Sat by Pulse 97 97 97 Oximetry 11/14/20 11/14/20 11/14/20 02:53 03:00 03:15 Temperature Pulse Rate 94 H 97 H 96 H Pulse Rate [ From Monitor] Respiratory 20 20 Rate Blood Pressure 167/76 167/76 O2 Sat by Pulse 98 98 Oximetry 11/14/20 11/14/20 11/14/20 03:31 03:45 04:00 Temperature 99.7 F H Pulse Rate 97 H 96 H 98 H Pulse Rate [ From Monitor] Respiratory 21 22 20 Rate Blood Pressure 167/76 167/76 166/71 O2 Sat by Pulse 97 97 97 Oximetry 11/14/20 11/14/20 11/14/20 04:15 04:31 04:45 Temperature Pulse Rate 102 H 102 H 102 H Pulse Rate [ From Monitor] Respiratory 24 26 H 24 Rate Blood Pressure 166/71 166/71 166/71 O2 Sat by Pulse 97 97 97 Oximetry 10/08/2811/14/20 11/14/20 04:50 05:00 05:15 Temperature Pulse Rate 108 H 108 H 106 H Pulse Rate [ From Monitor] Respiratory 27 H 24 Rate Blood Pressure 161/71 161/71 O2 Sat by Pulse 96 97 96 Oximetry 11/14/20 11/14/20 11/14/20 05:31 05:45 05:55 Temperature Pulse Rate 103 H 98 H 98 H Pulse Rate [ From Monitor] Respiratory 22 14 Rate Blood Pressure 161/71 161/71 161/71 O2 Sat by Pulse 97 97 Oximetry 11/14/20 11/14/20 11/14/20 06:00 06:15 06:31 Temperature Pulse Rate 103 H 82 81 Pulse Rate [ From Monitor] Respiratory 18 17 20 Rate Blood Pressure 146/63 146/63 146/63 O2 Sat by Pulse 97 97 97 Oximetry 11/14/20 11/14/20 11/14/20 06:45 07:00 07:15 Temperature Pulse Rate 87 82 86 Pulse Rate [ From Monitor] Respiratory 18 19 21 Rate Blood Pressure 146/63 139/68 139/68 O2 Sat by Pulse 97 98 97 Oximetry 11/14/20 11/14/20 11/14/20 07:31 07:45 07:56 Temperature 99.7 F H Pulse Rate 86 77 Pulse Rate [ From Monitor] Respiratory 18 14 Rate Blood Pressure 139/68 139/68 O2 Sat by Pulse 98 98 Oximetry 11/14/20 11/14/20 11/14/20 08:00 08:15 08:21 Temperature Pulse Rate 90 93 H 90 Pulse Rate [ From Monitor] Respiratory 15 20 Rate Blood Pressure 147/70 147/70 O2 Sat by Pulse 98 98 Oximetry 11/14/20 11/14/20 11/14/20 08:27 08:31 08:45 Temperature Pulse Rate 86 87 Pulse Rate [ 87 From Monitor] Respiratory 20 21 15 Rate Blood Pressure 147/70 147/70 O2 Sat by Pulse 99 99 99 Oximetry 11/14/20 11/14/20 11/14/20 08:48 08:53 09:00 Temperature Pulse Rate 86 Pulse Rate [ From Monitor] Respiratory 16 Rate Blood Pressure 147/70 153/75 O2 Sat by Pulse 100 100 99 Oximetry 11/14/20 11/14/20 11/14/20 09:15 09:31 09:45 Temperature Pulse Rate 89 90 94 H Pulse Rate [ From Monitor] Respiratory 16 17 20 Rate Blood Pressure 153/75 153/75 153/75 O2 Sat by Pulse 98 99 98 Oximetry 11/14/20 11/14/20 11/14/20 10:00 10:15 10:31 Temperature Pulse Rate 85 87 80 Pulse Rate [ From Monitor] Respiratory 21 15 19 Rate Blood Pressure 149/73 149/73 149/73 O2 Sat by Pulse 99 98 98 Oximetry 11/14/20 11/14/20 11/14/20 10:34 10:45 11:00 Temperature Pulse Rate 87 82 86 Pulse Rate [ From Monitor] Respiratory 15 14 Rate Blood Pressure 149/73 149/73 148/69 O2 Sat by Pulse 98 98 Oximetry 11/14/20 11/14/20 11/14/20 11:15 11:31 11:45 Temperature Pulse Rate 100 H 84 77 Pulse Rate [ From Monitor] Respiratory 14 14 18 Rate Blood Pressure 148/69 148/69 148/69 O2 Sat by Pulse 98 98 98 Oximetry 11/14/20 11/14/20 12:00 12:21 Temperature Pulse Rate 77 79 Pulse Rate [ 77 From Monitor] Respiratory 21 21 Rate Blood Pressure 159/72 159/72 O2 Sat by Pulse 98 99 Oximetry Constitutional: no acute distress, other (elderly obese female with mildly increased respiratory effort at rest) Eyes: non-icteric ENT: oropharynx moist, other (ETT 24 cm LOIDA) Neck: supple, no lymphadenopathy, no JVD Effort: normal Ascultation: Bilateral: diminished breath sounds, rhonchi Percussion: Bilateral: not dull Cardiovascular: regular rate and rhythm Gastrointestinal: normoactive bowel sounds, soft, non-tender, non-distended (protuberant) Integumentary: normal Extremities: no cyanosis, pulses normal, no ischemia or petechiae Neurologic: non-focal exam (grossly), pupils equal and round, CN II-XII normal, motor strength normal and (weak) Psychiatric: mood appropriate, affect normal CBC and BMP: 11/14/20 Unknown 11/14/20 Unknown ABG, PT/INR, D-dimer: ABG ABG pH 7.360 pH Units (7.350-7.450) 11/13/20 21:22 POC ABG pCO2 33.5 mmHg (32.0-48.0) 11/13/20 04:03 ABG pCO2 33.6 mm Hg 11/13/20 21:22 POC ABG pO2 145.7 mmHg (83-108) H 11/13/20 04:03 ABG pO2 97.2 mm Hg (80.0-90.0) H 11/13/20 21:22 POC ABG HCO3 17.9 11/13/20 04:03 ABG O2 Saturation 97.4 % (95.0-99.0) 11/13/20 21:22 PT/INR, D-dimer PT 17.6 Sec. (12.2-14.9) H 11/12/20 04:26 INR 1.40 (0.87-1.13) H 11/12/20 04:26 D-Dimer > 92190 ng/mlDDU (0-234) H 11/10/20 04:28 Abnormal lab findings: Abnormal Labs 11/09/20 11/09/20 11/09/20 17:24 17:24 17:24 WBC RBC 3.29 L Hgb Hct Plt Count 100 L Lymph % (Auto) 54.6 H [place] % (Auto) [place] # (Auto) Seg Neutrophils % 38.5 L Seg Neuts % (Manual) Lymphocytes % (Manual) Seg Neutrophils # Seg Neutrophils # Man Lymphocytes # (Manual) PT 19.9 H INR 1.64 H APTT 49.2 H Fibrinogen D-Dimer > 00372 H Heparin Anti-Xa Level ABG pH POC ABG pO2 ABG pO2 ABG HCO3 ABG O2 Saturation ABG Base Excess ABG Hemoglobin ABG Oxyhemoglobin ABG Sodium ABG Potassium ABG Chloride ABG Glucose Oxyhemoglobin Carboxyhemoglobin Sodium Potassium 2.9 L* Chloride Carbon Dioxide 13 L BUN Creatinine 1.4 H Glucose 391 H POC Glucose Lactic Acid Calcium Phosphorus Magnesium AST ALT Lactate Dehydrogenase Total Creatine Kinase CK-MB (CK-2) 5.0 H CK-MB (CK-2) Rel Index 4.8 H Troponin T 0.263 H* C-Reactive Protein NT-Pro-B Natriuret Pep Total Protein Albumin Triglycerides 163 H HDL Cholesterol 29 L Arterial Blood Glucose Arterial Blood Ionized Calcium Urine Creatinine Urine Chloride Crossmatch 11/09/20 11/09/20 11/09/20 17:24 17:24 18:11 WBC RBC Hgb Hct Plt Count Lymph % (Auto) [place] % (Auto) [place] # (Auto) Seg Neutrophils % Seg Neuts % (Manual) Lymphocytes % (Manual) Seg Neutrophils # Seg Neutrophils # Man Lymphocytes # (Manual) PT INR APTT Fibrinogen D-Dimer Heparin Anti-Xa Level ABG pH POC ABG pO2 ABG pO2 ABG HCO3 ABG O2 Saturation ABG Base Excess ABG Hemoglobin ABG Oxyhemoglobin ABG Sodium ABG Potassium ABG Chloride ABG Glucose Oxyhemoglobin Carboxyhemoglobin Sodium Potassium Chloride Carbon Dioxide BUN Creatinine Glucose POC Glucose Lactic Acid 11.40 H* Calcium Phosphorus Magnesium AST 312 H ALT 273 H Lactate Dehydrogenase Total Creatine Kinase CK-MB (CK-2) CK-MB (CK-2) Rel Index Troponin T C-Reactive Protein NT-Pro-B Natriuret Pep 1169 H Total Protein 5.2 L Albumin 2.8 L Triglycerides HDL Cholesterol Arterial Blood Glucose Arterial Blood Ionized Calcium Urine Creatinine Urine Chloride Crossmatch See Detail 11/09/20 11/09/20 11/09/20 18:21 20:07 20:07 WBC RBC Hgb Hct Plt Count Lymph % (Auto) [place] % (Auto) [place] # (Auto) Seg Neutrophils % Seg Neuts % (Manual) Lymphocytes % (Manual) Seg Neutrophils # Seg Neutrophils # Man Lymphocytes # (Manual) PT INR APTT Fibrinogen D-Dimer Heparin Anti-Xa Level ABG pH 7.053 L POC ABG pO2 159.6 H ABG pO2 ABG HCO3 ABG O2 Saturation ABG Base Excess ABG Hemoglobin ABG Oxyhemoglobin ABG Sodium 135.1 L ABG Potassium ABG Chloride ABG Glucose 421 H Oxyhemoglobin Carboxyhemoglobin 0.3 L Sodium Potassium Chloride Carbon Dioxide BUN Creatinine Glucose POC Glucose Lactic Acid 9.00 H* Calcium Phosphorus Magnesium AST ALT Lactate Dehydrogenase Total Creatine Kinase 340 H CK-MB (CK-2) 14.2 H CK-MB (CK-2) Rel Index 4.1 H Troponin T 0.553 H* D C-Reactive Protein NT-Pro-B Natriuret Pep Total Protein Albumin Triglycerides HDL Cholesterol Arterial Blood Glucose 421 H Arterial Blood Ionized Calcium Urine Creatinine Urine Chloride Crossmatch 11/09/20 11/09/20 11/10/20 23:05 23:05 00:42 WBC RBC Hgb Hct Plt Count Lymph % (Auto) [place] % (Auto) [place] # (Auto) Seg Neutrophils % Seg Neuts % (Manual) Lymphocytes % (Manual) Seg Neutrophils # Seg Neutrophils # Man Lymphocytes # (Manual) PT 19.8 H INR 1.63 H APTT Fibrinogen 210 L D-Dimer Heparin Anti-Xa Level 0.79 H ABG pH POC ABG pO2 ABG pO2 ABG HCO3 ABG O2 Saturation ABG Base Excess ABG Hemoglobin ABG Oxyhemoglobin ABG Sodium ABG Potassium ABG Chloride ABG Glucose Oxyhemoglobin Carboxyhemoglobin Sodium Potassium Chloride Carbon Dioxide BUN Creatinine Glucose POC Glucose Lactic Acid 6.80 H* Calcium Phosphorus Magnesium AST ALT Lactate Dehydrogenase Total Creatine Kinase 449 H CK-MB (CK-2) 18.4 H CK-MB (CK-2) Rel Index Troponin T 0.873 H* D C-Reactive Protein NT-Pro-B Natriuret Pep Total Protein Albumin Triglycerides HDL Cholesterol Arterial Blood Glucose Arterial Blood Ionized Calcium Urine Creatinine Urine Chloride Crossmatch 11/10/20 11/10/20 11/10/20 04:28 04:28 04:28 WBC RBC Hgb Hct Plt Count Lymph % (Auto) [place] % (Auto) [place] # (Auto) Seg Neutrophils % Seg Neuts % (Manual) Lymphocytes % (Manual) Seg Neutrophils # Seg Neutrophils # Man Lymphocytes # (Manual) PT 20.3 H INR 1.69 H APTT Fibrinogen D-Dimer > 19753 H Heparin Anti-Xa Level ABG pH POC ABG pO2 ABG pO2 ABG HCO3 ABG O2 Saturation ABG Base Excess ABG Hemoglobin ABG Oxyhemoglobin ABG Sodium ABG Potassium ABG Chloride ABG Glucose Oxyhemoglobin Carboxyhemoglobin Sodium 136 L Potassium 3.3 L Chloride Carbon Dioxide 16 L BUN 21 H Creatinine 1.8 H Glucose 376 H POC Glucose Lactic Acid Calcium Phosphorus Magnesium AST ALT Lactate Dehydrogenase 1637 H Total Creatine Kinase CK-MB (CK-2) CK-MB (CK-2) Rel Index Troponin T C-Reactive Protein 3.50 H NT-Pro-B Natriuret Pep Total Protein Albumin Triglycerides HDL Cholesterol Arterial Blood Glucose Arterial Blood Ionized Calcium Urine Creatinine Urine Chloride Crossmatch 11/10/20 11/10/20 11/10/20 04:28 04:28 05:13 WBC 17.7 H RBC Hgb Hct Plt Count Lymph % (Auto) [place] % (Auto) [place] # (Auto) Seg Neutrophils % Seg Neuts % (Manual) 96.0 H Lymphocytes % (Manual) 1.0 L Seg Neutrophils # Seg Neutrophils # Man 17.0 H Lymphocytes # (Manual) 0.2 L PT INR APTT Fibrinogen D-Dimer Heparin Anti-Xa Level ABG pH 7.221 L POC ABG pO2 162.0 H ABG pO2 ABG HCO3 ABG O2 Saturation ABG Base Excess ABG Hemoglobin 11.7 L ABG Oxyhemoglobin 98.9 H ABG Sodium 133.6 L ABG Potassium 3.1 L ABG Chloride ABG Glucose 346 H Oxyhemoglobin Carboxyhemoglobin 0.1 L Sodium Potassium Chloride Carbon Dioxide BUN Creatinine Glucose POC Glucose Lactic Acid 6.10 H* Calcium Phosphorus Magnesium AST ALT Lactate Dehydrogenase Total Creatine Kinase CK-MB (CK-2) CK-MB (CK-2) Rel Index Troponin T C-Reactive Protein NT-Pro-B Natriuret Pep Total Protein Albumin Triglycerides HDL Cholesterol Arterial Blood Glucose 346 H Arterial Blood Ionized Calcium Urine Creatinine Urine Chloride Crossmatch 11/10/20 11/10/20 11/10/20 11:06 12:30 15:08 WBC 16.1 H RBC 3.20 L Hgb 9.7 L Hct 29.5 L Plt Count Lymph % (Auto) 7.4 L [place] % (Auto) 8.7 H [place] # (Auto) 1.4 H Seg Neutrophils % 83.7 H Seg Neuts % (Manual) Lymphocytes % (Manual) Seg Neutrophils # 13.5 H Seg Neutrophils # Man Lymphocytes # (Manual) PT 18.9 H INR 1.53 H APTT 204.8 H* Fibrinogen D-Dimer Heparin Anti-Xa Level 0.76 H ABG pH POC ABG pO2 ABG pO2 ABG HCO3 ABG O2 Saturation ABG Base Excess ABG Hemoglobin ABG Oxyhemoglobin ABG Sodium ABG Potassium ABG Chloride ABG Glucose Oxyhemoglobin Carboxyhemoglobin Sodium Potassium Chloride Carbon Dioxide BUN Creatinine Glucose POC Glucose Lactic Acid Calcium Phosphorus Magnesium AST ALT Lactate Dehydrogenase Total Creatine Kinase CK-MB (CK-2) CK-MB (CK-2) Rel Index Troponin T C-Reactive Protein NT-Pro-B Natriuret Pep Total Protein Albumin Triglycerides HDL Cholesterol Arterial Blood Glucose Arterial Blood Ionized Calcium Urine Creatinine 80.9 H Urine Chloride 38.8 L Crossmatch 11/10/20 11/10/20 11/10/20 15:08 17:17 18:25 WBC RBC Hgb Hct Plt Count Lymph % (Auto) [place] % (Auto) [place] # (Auto) Seg Neutrophils % Seg Neuts % (Manual) Lymphocytes % (Manual) Seg Neutrophils # Seg Neutrophils # Man Lymphocytes # (Manual) PT INR APTT Fibrinogen D-Dimer Heparin Anti-Xa Level ABG pH 7.206 L POC ABG pO2 ABG pO2 ABG HCO3 18.3 L ABG O2 Saturation ABG Base Excess -9.2 L ABG Hemoglobin 9.4 L ABG Oxyhemoglobin ABG Sodium ABG Potassium ABG Chloride ABG Glucose Oxyhemoglobin 94.3 L Carboxyhemoglobin Sodium Potassium Chloride Carbon Dioxide BUN Creatinine Glucose POC Glucose 200 H Lactic Acid 4.10 H* Calcium Phosphorus Magnesium AST ALT Lactate Dehydrogenase Total Creatine Kinase CK-MB (CK-2) CK-MB (CK-2) Rel Index Troponin T C-Reactive Protein NT-Pro-B Natriuret Pep Total Protein Albumin Triglycerides HDL Cholesterol Arterial Blood Glucose Arterial Blood Ionized Calcium Urine Creatinine Urine Chloride Crossmatch 11/10/20 11/10/20 11/10/20 19:54 20:21 21:13 WBC RBC Hgb 9.7 L Hct 28.4 L Plt Count Lymph % (Auto) [place] % (Auto) [place] # (Auto) Seg Neutrophils % Seg Neuts % (Manual) Lymphocytes % (Manual) Seg Neutrophils # Seg Neutrophils # Man Lymphocytes # (Manual) PT INR APTT Fibrinogen D-Dimer Heparin Anti-Xa Level 0.13 L ABG pH 7.297 L POC ABG pO2 ABG pO2 ABG HCO3 ABG O2 Saturation ABG Base Excess ABG Hemoglobin 7.3 L ABG Oxyhemoglobin ABG Sodium 135.6 L ABG Potassium ABG Chloride 111.0 H ABG Glucose 153 H Oxyhemoglobin Carboxyhemoglobin Sodium Potassium Chloride Carbon Dioxide BUN Creatinine Glucose POC Glucose Lactic Acid Calcium Phosphorus Magnesium AST ALT Lactate Dehydrogenase Total Creatine Kinase CK-MB (CK-2) CK-MB (CK-2) Rel Index Troponin T C-Reactive Protein NT-Pro-B Natriuret Pep Total Protein Albumin Triglycerides HDL Cholesterol Arterial Blood Glucose 153 H Arterial Blood Ionized Calcium Urine Creatinine Urine Chloride Crossmatch 11/10/20 11/11/20 11/11/20 23:30 04:12 04:35 WBC 16.0 H RBC 2.83 L Hgb 8.7 L Hct 25.8 L Plt Count Lymph % (Auto) [place] % (Auto) [place] # (Auto) Seg Neutrophils % Seg Neuts % (Manual) Lymphocytes % (Manual) Seg Neutrophils # Seg Neutrophils # Man Lymphocytes # (Manual) PT INR APTT Fibrinogen D-Dimer Heparin Anti-Xa Level 0.29 L ABG pH POC ABG pO2 ABG pO2 ABG HCO3 ABG O2 Saturation ABG Base Excess ABG Hemoglobin ABG Oxyhemoglobin ABG Sodium ABG Potassium ABG Chloride ABG Glucose Oxyhemoglobin Carboxyhemoglobin Sodium Potassium Chloride Carbon Dioxide BUN Creatinine Glucose POC Glucose 166 H Lactic Acid Calcium Phosphorus Magnesium AST ALT Lactate Dehydrogenase Total Creatine Kinase CK-MB (CK-2) CK-MB (CK-2) Rel Index Troponin T C-Reactive Protein NT-Pro-B Natriuret Pep Total Protein Albumin Triglycerides HDL Cholesterol Arterial Blood Glucose Arterial Blood Ionized Calcium Urine Creatinine Urine Chloride Crossmatch 11/11/20 11/11/20 11/11/20 04:35 05:00 05:01 WBC RBC Hgb Hct Plt Count Lymph % (Auto) [place] % (Auto) [place] # (Auto) Seg Neutrophils % Seg Neuts % (Manual) Lymphocytes % (Manual) Seg Neutrophils # Seg Neutrophils # Man Lymphocytes # (Manual) PT INR APTT Fibrinogen D-Dimer Heparin Anti-Xa Level ABG pH POC ABG pO2 ABG pO2 ABG HCO3 ABG O2 Saturation ABG Base Excess ABG Hemoglobin ABG Oxyhemoglobin ABG Sodium ABG Potassium ABG Chloride ABG Glucose Oxyhemoglobin Carboxyhemoglobin Sodium 136 L Potassium Chloride Carbon Dioxide 17 L BUN 25 H Creatinine 2.5 H Glucose 192 H POC Glucose 191 H Lactic Acid 2.20 H* Calcium 7.6 L Phosphorus Magnesium AST 232 H ALT 309 H Lactate Dehydrogenase Total Creatine Kinase CK-MB (CK-2) CK-MB (CK-2) Rel Index Troponin T C-Reactive Protein NT-Pro-B Natriuret Pep Total Protein 5.7 L Albumin 2.7 L Triglycerides HDL Cholesterol Arterial Blood Glucose Arterial Blood Ionized Calcium Urine Creatinine Urine Chloride Crossmatch 11/11/20 11/11/20 11/11/20 09:45 12:34 14:40 WBC RBC Hgb Hct Plt Count Lymph % (Auto) [place] % (Auto) [place] # (Auto) Seg Neutrophils % Seg Neuts % (Manual) Lymphocytes % (Manual) Seg Neutrophils # Seg Neutrophils # Man Lymphocytes # (Manual) PT INR APTT Fibrinogen D-Dimer Heparin Anti-Xa Level ABG pH POC ABG pO2 ABG pO2 172.4 H ABG HCO3 16.7 L ABG O2 Saturation 99.1 H ABG Base Excess -7.9 L ABG Hemoglobin 6.1 L ABG Oxyhemoglobin ABG Sodium ABG Potassium ABG Chloride ABG Glucose Oxyhemoglobin Carboxyhemoglobin Sodium Potassium Chloride Carbon Dioxide BUN Creatinine Glucose POC Glucose 141 H Lactic Acid 2.70 H* Calcium Phosphorus Magnesium AST ALT Lactate Dehydrogenase Total Creatine Kinase CK-MB (CK-2) CK-MB (CK-2) Rel Index Troponin T C-Reactive Protein NT-Pro-B Natriuret Pep Total Protein Albumin Triglycerides HDL Cholesterol Arterial Blood Glucose Arterial Blood Ionized Calcium Urine Creatinine Urine Chloride Crossmatch 11/11/20 11/11/20 11/11/20 17:06 21:00 23:20 WBC RBC Hgb 7.1 L Hct 20.9 L Plt Count Lymph % (Auto) [place] % (Auto) [place] # (Auto) Seg Neutrophils % Seg Neuts % (Manual) Lymphocytes % (Manual) Seg Neutrophils # Seg Neutrophils # Man Lymphocytes # (Manual) PT INR APTT Fibrinogen D-Dimer Heparin Anti-Xa Level ABG pH 7.287 L POC ABG pO2 ABG pO2 ABG HCO3 ABG O2 Saturation ABG Base Excess ABG Hemoglobin 7.5 L ABG Oxyhemoglobin ABG Sodium 134.1 L ABG Potassium ABG Chloride 110.0 H ABG Glucose 141 H Oxyhemoglobin Carboxyhemoglobin Sodium Potassium Chloride Carbon Dioxide BUN Creatinine Glucose POC Glucose 157 H Lactic Acid Calcium Phosphorus Magnesium AST ALT Lactate Dehydrogenase Total Creatine Kinase CK-MB (CK-2) CK-MB (CK-2) Rel Index Troponin T C-Reactive Protein NT-Pro-B Natriuret Pep Total Protein Albumin Triglycerides HDL Cholesterol Arterial Blood Glucose 141 H Arterial Blood Ionized Calcium 4.2 L Urine Creatinine Urine Chloride Crossmatch 11/11/20 11/12/20 11/12/20 23:30 04:26 04:26 WBC 16.8 H RBC 2.25 L Hgb 6.8 L Hct 20.5 L Plt Count Lymph % (Auto) [place] % (Auto) [place] # (Auto) Seg Neutrophils % Seg Neuts % (Manual) Lymphocytes % (Manual) Seg Neutrophils # Seg Neutrophils # Man Lymphocytes # (Manual) PT INR APTT Fibrinogen D-Dimer Heparin Anti-Xa Level ABG pH POC ABG pO2 ABG pO2 ABG HCO3 ABG O2 Saturation ABG Base Excess ABG Hemoglobin ABG Oxyhemoglobin ABG Sodium ABG Potassium ABG Chloride ABG Glucose Oxyhemoglobin Carboxyhemoglobin Sodium Potassium Chloride 110.1 H Carbon Dioxide 18 L BUN 25 H Creatinine 2.4 H Glucose 146 H POC Glucose 127 H Lactic Acid Calcium 7.4 L Phosphorus Magnesium AST ALT Lactate Dehydrogenase Total Creatine Kinase CK-MB (CK-2) CK-MB (CK-2) Rel Index Troponin T C-Reactive Protein NT-Pro-B Natriuret Pep Total Protein Albumin Triglycerides HDL Cholesterol Arterial Blood Glucose Arterial Blood Ionized Calcium Urine Creatinine Urine Chloride Crossmatch 11/12/20 11/12/20 11/12/20 04:26 06:01 12:02 WBC RBC Hgb Hct Plt Count Lymph % (Auto) [place] % (Auto) [place] # (Auto) Seg Neutrophils % Seg Neuts % (Manual) Lymphocytes % (Manual) Seg Neutrophils # Seg Neutrophils # Man Lymphocytes # (Manual) PT 17.6 H INR 1.40 H APTT 162.1 H* Fibrinogen D-Dimer Heparin Anti-Xa Level ABG pH POC ABG pO2 ABG pO2 ABG HCO3 ABG O2 Saturation ABG Base Excess ABG Hemoglobin ABG Oxyhemoglobin ABG Sodium ABG Potassium ABG Chloride ABG Glucose Oxyhemoglobin Carboxyhemoglobin Sodium Potassium Chloride Carbon Dioxide BUN Creatinine Glucose POC Glucose 134 H 131 H Lactic Acid Calcium Phosphorus Magnesium AST ALT Lactate Dehydrogenase Total Creatine Kinase CK-MB (CK-2) CK-MB (CK-2) Rel Index Troponin T C-Reactive Protein NT-Pro-B Natriuret Pep Total Protein Albumin Triglycerides HDL Cholesterol Arterial Blood Glucose Arterial Blood Ionized Calcium Urine Creatinine Urine Chloride Crossmatch 11/12/20 11/12/20 11/12/20 12:05 12:34 17:26 WBC RBC Hgb 6.8 L Hct 20.3 L Plt Count Lymph % (Auto) [place] % (Auto) [place] # (Auto) Seg Neutrophils % Seg Neuts % (Manual) Lymphocytes % (Manual) Seg Neutrophils # Seg Neutrophils # Man Lymphocytes # (Manual) PT INR APTT Fibrinogen D-Dimer Heparin Anti-Xa Level ABG pH 7.297 L POC ABG pO2 ABG pO2 ABG HCO3 ABG O2 Saturation ABG Base Excess ABG Hemoglobin 7.3 L ABG Oxyhemoglobin ABG Sodium 135.6 L ABG Potassium ABG Chloride 111.0 H ABG Glucose 153 H Oxyhemoglobin Carboxyhemoglobin Sodium Potassium Chloride Carbon Dioxide BUN Creatinine Glucose POC Glucose 119 H Lactic Acid Calcium Phosphorus Magnesium AST ALT Lactate Dehydrogenase Total Creatine Kinase CK-MB (CK-2) CK-MB (CK-2) Rel Index Troponin T C-Reactive Protein NT-Pro-B Natriuret Pep Total Protein Albumin Triglycerides HDL Cholesterol Arterial Blood Glucose 153 H Arterial Blood Ionized Calcium Urine Creatinine Urine Chloride Crossmatch 11/12/20 11/13/20 11/13/20 23:49 02:11 02:11 WBC 15.9 H RBC 2.38 L Hgb 7.1 L Hct 21.3 L Plt Count Lymph % (Auto) [place] % (Auto) 8.9 H [place] # (Auto) 1.4 H Seg Neutrophils % 73.5 H Seg Neuts % (Manual) Lymphocytes % (Manual) Seg Neutrophils # 11.7 H Seg Neutrophils # Man Lymphocytes # (Manual) PT INR APTT Fibrinogen D-Dimer Heparin Anti-Xa Level ABG pH POC ABG pO2 ABG pO2 ABG HCO3 ABG O2 Saturation ABG Base Excess ABG Hemoglobin ABG Oxyhemoglobin ABG Sodium ABG Potassium ABG Chloride ABG Glucose Oxyhemoglobin Carboxyhemoglobin Sodium Potassium Chloride 109.8 H Carbon Dioxide 18 L BUN 26 H Creatinine 2.3 H Glucose 109 H POC Glucose 118 H Lactic Acid Calcium 7.7 L Phosphorus Magnesium AST ALT Lactate Dehydrogenase Total Creatine Kinase CK-MB (CK-2) CK-MB (CK-2) Rel Index Troponin T C-Reactive Protein NT-Pro-B Natriuret Pep Total Protein Albumin Triglycerides HDL Cholesterol Arterial Blood Glucose Arterial Blood Ionized Calcium Urine Creatinine Urine Chloride Crossmatch 11/13/20 11/13/20 11/13/20 04:03 06:01 07:50 WBC RBC Hgb 7.7 L Hct 23.3 L Plt Count Lymph % (Auto) [place] % (Auto) [place] # (Auto) Seg Neutrophils % Seg Neuts % (Manual) Lymphocytes % (Manual) Seg Neutrophils # Seg Neutrophils # Man Lymphocytes # (Manual) PT INR APTT Fibrinogen D-Dimer Heparin Anti-Xa Level ABG pH POC ABG pO2 145.7 H ABG pO2 ABG HCO3 ABG O2 Saturation ABG Base Excess ABG Hemoglobin 7.2 L ABG Oxyhemoglobin ABG Sodium 135.3 L ABG Potassium ABG Chloride 113.0 H ABG Glucose 108 H Oxyhemoglobin Carboxyhemoglobin Sodium Potassium Chloride Carbon Dioxide BUN Creatinine Glucose POC Glucose 108 H Lactic Acid Calcium Phosphorus Magnesium AST ALT Lactate Dehydrogenase Total Creatine Kinase CK-MB (CK-2) CK-MB (CK-2) Rel Index Troponin T C-Reactive Protein NT-Pro-B Natriuret Pep Total Protein Albumin Triglycerides HDL Cholesterol Arterial Blood Glucose 108 H Arterial Blood Ionized Calcium 4.3 L Urine Creatinine Urine Chloride Crossmatch 11/13/20 11/13/20 11/13/20 12:00 14:30 17:10 WBC RBC Hgb 7.5 L Hct 22.6 L Plt Count Lymph % (Auto) [place] % (Auto) [place] # (Auto) Seg Neutrophils % Seg Neuts % (Manual) Lymphocytes % (Manual) Seg Neutrophils # Seg Neutrophils # Man Lymphocytes # (Manual) PT INR APTT Fibrinogen D-Dimer Heparin Anti-Xa Level ABG pH POC ABG pO2 ABG pO2 ABG HCO3 ABG O2 Saturation ABG Base Excess ABG Hemoglobin ABG Oxyhemoglobin ABG Sodium ABG Potassium ABG Chloride ABG Glucose Oxyhemoglobin Carboxyhemoglobin Sodium Potassium Chloride Carbon Dioxide BUN Creatinine Glucose POC Glucose 147 H 110 H Lactic Acid Calcium Phosphorus Magnesium AST ALT Lactate Dehydrogenase Total Creatine Kinase CK-MB (CK-2) CK-MB (CK-2) Rel Index Troponin T C-Reactive Protein NT-Pro-B Natriuret Pep Total Protein Albumin Triglycerides HDL Cholesterol Arterial Blood Glucose Arterial Blood Ionized Calcium Urine Creatinine Urine Chloride Crossmatch 11/13/20 11/14/20 11/14/20 21:22 Unknown Unknown WBC 15.9 H RBC 2.61 L Hgb 7.8 L Hct 23.1 L Plt Count Lymph % (Auto) [place] % (Auto) [place] # (Auto) Seg Neutrophils % Seg Neuts % (Manual) Lymphocytes % (Manual) Seg Neutrophils # Seg Neutrophils # Man Lymphocytes # (Manual) PT INR APTT Fibrinogen D-Dimer Heparin Anti-Xa Level ABG pH POC ABG pO2 ABG pO2 97.2 H ABG HCO3 18.6 L ABG O2 Saturation ABG Base Excess -6.1 L ABG Hemoglobin 9.2 L ABG Oxyhemoglobin ABG Sodium ABG Potassium ABG Chloride ABG Glucose Oxyhemoglobin Carboxyhemoglobin Sodium Potassium 3.3 L Chloride 107.8 H Carbon Dioxide 18 L BUN 22 H Creatinine 1.7 H Glucose POC Glucose Lactic Acid Calcium 8.2 L Phosphorus 1.70 L Magnesium 1.40 L AST ALT 88 H Lactate Dehydrogenase Total Creatine Kinase CK-MB (CK-2) CK-MB (CK-2) Rel Index Troponin T C-Reactive Protein NT-Pro-B Natriuret Pep Total Protein 6.0 L Albumin 2.7 L Triglycerides HDL Cholesterol Arterial Blood Glucose Arterial Blood Ionized Calcium Urine Creatinine Urine Chloride Crossmatch Chest x-ray: image reviewed (COPD type changes; no acute infiltrates) Allied health notes reviewed: nursing
--- NOTE | 2020-11-14 13:13 | Progress Note ---
Assessment and Plan - Patient Problems (1) Acute kidney injury Current Visit: Yes Status: Acute Plan to address problem: Likely pre-renal injury in the setting of acute b/l PE with cor pulmonale and right sided heart failure. Underwent emergent CTA with contrast exposure which can also lead to further renal injury. Cont IVF with NS + 20 meq KCl, along with vasopressor support as needed to maintain MAP >65 mmHg, Avoid nephrotoxins. Renal US showed no evidence of obstructive uropathy, b/l echogenic kidneys seen. Renal function improving. Will follow closely (2) Acute pulmonary embolism with acute cor pulmonale Current Visit: Yes Status: Acute Qualifiers: Pulmonary embolism type: saddle Qualified Code(s): I26.02 - Saddle embolus of pulmonary artery with acute cor pulmonale Plan to address problem: s/p pulmonary angiography and placement of b/l thrombolytics catheter placement by vascular surgery. Follow up further recommendations from cardiology. Unclear etiology of b/l PE. (3) Cardiopulmonary arrest Current Visit: Yes Status: Acute Plan to address problem: On multiple pressor support. Intubated, sedated. Further recommendations per cardiology. (4) Hypokalemia Current Visit: Yes Status: Acute Plan to address problem: cont IV KCl supplementation to target K > 4 Subjective Date of service: 11/14/20 Principal diagnosis: Ac. hypoxemic resp failure; P.E.; PNA; Cardiac arrest; TYLER; Shock Interval history: Pt is s/p extubation. awake, alert in no acute respiratory distress Objective - Vital Signs Vital signs: Vital Signs - 12hr 11/14/20 11/14/20 11/14/20 01:15 01:31 01:45 Temperature Pulse Rate 95 H 95 H 99 H Pulse Rate [ From Monitor] Respiratory 19 21 22 Rate Blood Pressure 138/69 138/69 138/69 O2 Sat by Pulse 97 97 97 Oximetry 11/14/20 11/14/20 11/14/20 02:00 02:15 02:31 Temperature Pulse Rate 93 H 106 H 96 H Pulse Rate [ From Monitor] Respiratory 37 H 21 21 Rate Blood Pressure 160/71 160/71 160/71 O2 Sat by Pulse 97 97 97 Oximetry 11/14/20 11/14/20 11/14/20 02:45 02:53 03:00 Temperature Pulse Rate 95 H 94 H 97 H Pulse Rate [ From Monitor] Respiratory 22 20 Rate Blood Pressure 160/71 167/76 O2 Sat by Pulse 97 98 Oximetry 11/14/20 11/14/20 11/14/20 03:15 03:31 03:45 Temperature Pulse Rate 96 H 97 H 96 H Pulse Rate [ From Monitor] Respiratory 20 21 22 Rate Blood Pressure 167/76 167/76 167/76 O2 Sat by Pulse 98 97 97 Oximetry 11/14/20 11/14/20 11/14/20 04:00 04:15 04:31 Temperature 99.7 F H Pulse Rate 98 H 102 H 102 H Pulse Rate [ From Monitor] Respiratory 20 24 26 H Rate Blood Pressure 166/71 166/71 166/71 O2 Sat by Pulse 97 97 97 Oximetry 11/14/20 11/14/20 11/14/20 04:45 04:50 05:00 Temperature Pulse Rate 102 H 108 H 108 H Pulse Rate [ From Monitor] Respiratory 24 27 H Rate Blood Pressure 166/71 161/71 O2 Sat by Pulse 97 96 97 Oximetry 11/14/20 11/14/20 11/14/20 05:15 05:31 05:45 Temperature Pulse Rate 106 H 103 H 98 H Pulse Rate [ From Monitor] Respiratory 24 22 14 Rate Blood Pressure 161/71 161/71 161/71 O2 Sat by Pulse 96 97 97 Oximetry 11/14/20 11/14/20 11/14/20 05:55 06:00 06:15 Temperature Pulse Rate 98 H 103 H 82 Pulse Rate [ From Monitor] Respiratory 18 17 Rate Blood Pressure 161/71 146/63 146/63 O2 Sat by Pulse 97 97 Oximetry 11/14/20 11/14/20 11/14/20 06:31 06:45 07:00 Temperature Pulse Rate 81 87 82 Pulse Rate [ From Monitor] Respiratory 20 18 19 Rate Blood Pressure 146/63 146/63 139/68 O2 Sat by Pulse 97 97 98 Oximetry 11/14/20 11/14/20 11/14/20 07:15 07:31 07:45 Temperature Pulse Rate 86 86 77 Pulse Rate [ From Monitor] Respiratory 21 18 14 Rate Blood Pressure 139/68 139/68 139/68 O2 Sat by Pulse 97 98 98 Oximetry 11/14/20 11/14/20 11/14/20 07:56 08:00 08:15 Temperature 99.7 F H Pulse Rate 90 93 H Pulse Rate [ From Monitor] Respiratory 15 20 Rate Blood Pressure 147/70 147/70 O2 Sat by Pulse 98 98 Oximetry 11/14/20 11/14/20 11/14/20 08:21 08:27 08:31 Temperature Pulse Rate 90 86 Pulse Rate [ 87 From Monitor] Respiratory 20 21 Rate Blood Pressure 147/70 O2 Sat by Pulse 99 99 Oximetry 11/14/20 11/14/20 11/14/20 08:45 08:48 08:53 Temperature Pulse Rate 87 Pulse Rate [ From Monitor] Respiratory 15 Rate Blood Pressure 147/70 147/70 O2 Sat by Pulse 99 100 100 Oximetry 11/14/20 11/14/20 11/14/20 09:00 09:15 09:31 Temperature Pulse Rate 86 89 90 Pulse Rate [ From Monitor] Respiratory 16 16 17 Rate Blood Pressure 153/75 153/75 153/75 O2 Sat by Pulse 99 98 99 Oximetry 11/14/20 11/14/20 11/14/20 09:45 10:00 10:15 Temperature Pulse Rate 94 H 85 87 Pulse Rate [ From Monitor] Respiratory 20 21 15 Rate Blood Pressure 153/75 149/73 149/73 O2 Sat by Pulse 98 99 98 Oximetry 11/14/20 11/14/20 11/14/20 10:31 10:34 10:45 Temperature Pulse Rate 80 87 82 Pulse Rate [ From Monitor] Respiratory 19 15 Rate Blood Pressure 149/73 149/73 149/73 O2 Sat by Pulse 98 98 Oximetry 11/14/20 11/14/20 11/14/20 11:00 11:15 11:31 Temperature Pulse Rate 86 100 H 84 Pulse Rate [ From Monitor] Respiratory 14 14 14 Rate Blood Pressure 148/69 148/69 148/69 O2 Sat by Pulse 98 98 98 Oximetry 11/14/20 11/14/20 11/14/20 11:45 12:00 12:21 Temperature Pulse Rate 77 77 79 Pulse Rate [ 77 From Monitor] Respiratory 18 21 21 Rate Blood Pressure 148/69 159/72 159/72 O2 Sat by Pulse 98 98 99 Oximetry 11/14/20 12:50 Temperature Pulse Rate Pulse Rate [ From Monitor] Respiratory Rate Blood Pressure O2 Sat by Pulse 99 Oximetry - General Appearance General appearance: well-developed, well-nourished, appears stated age EENT: ATNC, PERRL, mucous membranes moist Neck: no JVD Respiratory: Present: Decreased Breath Sounds Cardiology: regular, S1S2 Gastrointestinal: normoactive bowel sounds Integumentary: no rash, other (no edema ) Neurologic: no focal deficit, alert and oriented x3, strength 5/5, CN 3-12 intact - Lab 11/14/20 Unknown 11/14/20 Unknown Most recent lab results ABG pH 7.360 pH Units (7.350-7.450) 11/13/20 21:22 ABG pCO2 33.6 mm Hg 11/13/20 21:22 ABG pO2 97.2 mm Hg (80.0-90.0) H 11/13/20 21:22 ABG HCO3 18.6 mmol/L (20.0-26.0) L 11/13/20 21: ABG O2 Saturation 97.4 % (95.0-99.0) 11/13/20 21:22 Calcium 8.2 mg/dL (8.4-10.2) L 11/14/20 Unknown Phosphorus 1.70 mg/dL (2.5-4.5) L 11/14/20 Unknown Magnesium 1.40 mg/dL (1.7-2.3) L 11/14/20 Unknown Urine Creatinine 80.9 mg/dL (0.1-20.0) H 11/10/20 11:06 Urine Sodium 48 mmol/L 11/10/20 11:06 Medications & Allergies - Medications Allergies/Adverse Reactions: Allergies No Known Allergies Allergy (Verified 11/09/20 17:19) Active Medications: Generic Name Dose Route Start Last Admin Trade Name Freq PRN Reason Stop Dose Admin Acetaminophen 650 mg 11/09/20 23:07 Acetaminophen 650 Mg Rect Supp MT Q6H PRN Pain MILD(1-3)/Fever >100.5/REYES Acetaminophen 650 mg 11/09/20 23:59 Acetaminophen 325 Mg Tab PO Q6H PRN Pain, Mild (1-3) Hydrocodone Bitart/Acetaminophen 2 each 11/09/20 23:59 Hydrocodone/Acetaminophen 5-325 Mg Tab PO Q6H PRN Pain, Moderate (4-6) Lipase/Protease/Amylase 1 each 11/11/20 17:17 Lipase 10,500/Protease 25,000/Amylase 43,750 (Units) Dr Cap FEEDTUBE PRN PRN For Clogged Feeding Tube Dextrose 50 ml 11/11/20 11:10 Dextrose 50% In Water (25gm) 50 Ml Syringe IV Q30MIN PRN Hypoglycemia Protocol Fentanyl 50 mcg 11/09/20 22:37 11/12/20 21:42 Fentanyl 100 Mcg/2 Ml Inj IV 50 mcg Q10MIN PRN Administration ANALGESIA Hydralazine HCl 10 mg 11/10/20 16:49 11/14/20 03:45 Hydralazine 20 Mg/1 Ml Inj IV 10 mg Q6H PRN Administration Blood Pressure Hydrophilic Ointment 1 applic 11/09/20 17:08 Lip Therapy Vaseline TP Q2H PRN Dry Lips Propofol 1,000 mg in 100 mls @ 2.245 mls/hr 11/09/20 18:00 11/12/20 18:55 Diprivan 10 Mg/Ml IV 0 mcg/kg/min TITR MELONY 0 mls/hr Titration Protocol 5 MCG/KG/MIN NORepinephrine/NS 8 MG-250 ML 8 mg in 250 mls @ 3.75 mls/hr 11/09/20 18:00 11/12/20 23:59 Norepinephrine/Ns 8 Mg-250 Ml (Double Conc) IV 0 mcg/min TITRATE MELONY 0 mls/hr Titration Protocol 2 MCG/MIN Fentanyl Citrate 2,000 mcg in 100 mls @ 11.226 mls/hr 11/09/20 23:00 11/13/20 09:00 Fentanyl Drip Premix IV 0 mcg/kg/hr TITR MELONY 0 mls/hr Titration Protocol 3 MCG/KG/HR Heparin Sodium/Sodium Chloride 25,000 unit in 500 mls @ 24 mls/hr 11/10/20 12:00 11/14/20 05:24 Heparin/ 0.45% Nacl-25,000 Unit/500 Ml IV 800 units/hr TITR MELONY 16 mls/hr Administration Protocol 1,200 UNITS/HR Dexmedetomidine HCl 400 mcg/ 104 mls @ 4.231 mls/hr 11/13/20 15:00 Sodium Chloride IV TITRATE MELONY Protocol 0.2 MCG/KG/HR Potassium Phosphate 40 mmol/ 513.3333 mls @ 83 mls/hr 11/14/20 09:30 11/14/20 10:35 Sodium Chloride IV 11/14/20 13:30 83 mls/hr [id number] MELONY Administration Linezolid 600 mg in 300 mls @ 300 mls/hr 11/14/20 13:00 Zyvox 600mg/300ml IV 11/19/20 12:59 Q12H [facility] Protocol Insulin Human Regular 0 units 11/11/20 12:00 11/14/20 12:14 Insulin Regular, Human 100 Units/1 Ml SUB-Q Not Given Q6H [facility] Protocol Magnesium Hydroxide 30 ml 11/09/20 23:07 Magnesium Hydroxide (Mom) Oral Liqd Udc PO Q4H PRN Constipation Metoprolol Tartrate 12.5 mg 11/14/20 10:00 11/14/20 10:34 Metoprolol Tartrate 25 Mg Tab PO 12.5 mg BID MELONY Administration Multi-Ingred Cream/Lotion/Oil/Oint 1 applic 11/09/20 17:08 Mineral Oil/Petrolatum, White Ophth Oint 3.5 Gm OU Q4H PRN Dry Eye(s) Ondansetron HCl 4 mg 11/09/20 23:07 Ondansetron 4 Mg/2 Ml Inj IV Q8H PRN Nausea And Vomiting Pantoprazole Sodium 40 mg 11/11/20 22:00 11/14/20 10:35 Pantoprazole 40 Mg Inj IV 40 mg BID MELONY Administration Senna/Docusate Sodium 1 tab 11/09/20 22:00 11/14/20 10:35 Sennosides/Docusate Sodium 8.6/50 Mg Tab FEEDTUBE 1 tab BID MELONY Administration Simple Syrup 15 ml 11/11/20 17:17 Simple Syrup 15 Ml FEEDTUBE PRN PRN Hypoglycemia Simple Syrup 30 ml 11/11/20 17:17 Simple Syrup 15 Ml FEEDTUBE PRN PRN Hypoglycemia Sodium Bicarbonate 325 mg 11/11/20 17:17 Sodium Bicarbonate 325 Mg Tab FEEDTUBE PRN PRN For Clogged Feeding Tube Sodium Chloride 10 ml 11/10/20 10:00 11/14/20 10:35 Sodium Chloride 0.9% 10 Ml Flush Syringe IV 10 ml BID MELONY Administration Sodium Chloride 10 ml 11/09/20 23:07 Sodium Chloride 0.9% 10 Ml Flush Syringe IV PRN PRN LINE FLUSH
--- NOTE | 2020-11-14 13:55 | Progress Note ---
Assessment and Plan Assessment and plan: This 84-year-old female with HTN, CKD, chronic right BBB, arthritis admitted s/P cardiac arrest, pulmonary embolism , Pneumonia and GI bleed Neuro: Acute metabolic encephalopathy -CT head completed which shows no acute intracranial abnormality, probable meningioma along the right anterior frontal lobe -Avoid delirium -Patient is awake, follows commands, positive track/focus, pupils equal round reactive -Neurology consulted, appreciate recommendations -Per neurology obtain MRI with Geodon when possible Cardio: S/p cardiopulmonary arrest, atrial fibrillation, acute diastolic heart failure -Cardiology consulted, appreciate recommendations -Echo 11/10/2020-EF 50 to 55%, right ventricular systolic function is normal, right ventricle is mildly dilated, left atrium not well visualized, mild mitral regurgitation, moderate pulmonary hypertension -Vasopressor support with Levophed -s/p dopamine and dobutamine with IVF -Blood pressure monitoring per protocol -started on metoprolol 12.5 BID -As needed hydralazine Respiratory: Acute hypoxic respiratory failure, acute pulmonary medicine with acute cor pulmonale -[facility] consulted, appreciate recommendations -Intubated 11/09 with 7.0 at 22 at the lip-> extuabted 11/14 -Placed on NC -Pulmonary hygiene GI: Upper GI hemorrhage, elevated LFTs -GI consulted, appreciate recommendations -s/p Protonix drip and now on Protonix IV BID -Hepatic serologies negative, hepatic panel negative -Per GI will reassess for EGD if patient develops severe GI bleeding -BR: Senokot -24-hour net balance -127 -Trend LFT -Gastric occult positive -passed bedside swallow eval -CLD, advance as tolerated : Acute kidney injury, metabolic acidosis -Nephrology consulted, appreciate recommendations -Likely prerenal injury in setting of acute bilateral pulmonary embolism with cor pulmonale and right-sided heart failure -Gentle IV hydration -Renal ultrasound showed no evidence of obstructive PE, bilateral echogenic kidneys -No indication for renal replacement at this time per nephrology -Urine electrolytes -Strict intake and output -Daily weights -Avoid nephrotoxic medications -Trend BMP ID: Bilateral pneumonia, SIRS, lactic acidosis -Empiric antibiotics with Rocephin and azithromycin (11/09-11/13) -Monitor fever and WBC curve -CXR noted with worsening bilateral airspace disease -Tracheal aspirate with MRSA -ID consulted -started on ziovox Heme: Large bilateral segmental and subsegmental PE, thrombocytopenia, coagulopathy, anemia, Left LE DVT -Vascular surgery consulted, appreciate recommendations -S/p pulmonary angiography with placement of thrombolytic catheters -Heparin drip -Transfuse for hemoglobin less than 7 -Trend CBC -S/p 1 unit PRBC -monitor for bleeding Endo: NAD -Accucheck q6 -Avoid hypoglycemia The high probability of a clinically significant, sudden or life threatening deterioration of the [multi] system(s) required my full and direct attention, intervention and personal management. The aggregate critical care time was [60] minutes. This time is in addition to time spent performing reported procedures but includes the following: [x] Data Review and interpretation [x] Patient assessment and monitoring of vital signs [x] Documentation [x] Medication orders and management Disposition Plan: icu Total Time Spent with Patient (Minutes): 60 History Interval history: This is a 84-year-old female with HTN, CKD, chronic RBBB, arthritis who presented to the emergency department on 11/09 from the department With valuation of difficulty breathing and shortness of breath. Upon arrival to the emergency department patient was actively unresponsive and positive pressure ventilation was started and subsequently had a cardiac arrest with eventual ROSC. Work-up emergency department revealed elevated D-dimer of greater than 10,000, elevated lactic acid, CTA showed bilateral segmental and subsegmental emboli with right heart strain, bibasilar airspace consolidation and trace right pleural effusion compatible with pneumonia. Vascular surgery was consulted for thrombolysis. Patient was admitted to the hospitalist service with consults to [facility], cardiology, nephrology and gastroenterology. 11/10: Patient seen and examined this morning review of her electrolytes shows some abnormalities with noted worsening renal failure in the setting of hypotension. Noted A. fib on EKG. Patient remains on EKOS system. Will obtain cardiology and nephrology evaluation. Echocardiogram to further evaluate condition of the heart in the setting of her cardiac arrest. Patient remains a PUI Covid testing is pending. Discussed with stove bottom worker this morning may consider changing from dopamine to dobutamine but will await cardiology evaluation. Possible further hydration in the setting of underlying right heart failure. I did discuss with the family who are not aware of any renal problems in the past. Ventilator management per statistical analyst. Closely monitor leukocytosis no fever noted at this time. I will replace potassium as noted hypokalemia Discussed with family the two daughters in detail 10/4: Patient is having blood-tinged secretions while suctioning, NG tube to dark secretions, gastric occult sent. PICC line ordered to be placed. Cardiology to change dopamine to dobutamine and start normal saline. No plans for hemodialysis per nephrology. 11/12: CPAP trial, PICC placement today and will remove femoral line after placement. No indication for renal replacement per nephrology. BLE doppler US per vascular. 11/13: Patient tolerating CPAP trial, per neurology consider MRI brain with Manuel, patient has staph areas in tracheal aspirate, appropriate response to PRBC, remains off vasopressors, worsening renal function. 11/14: Patient was extubated today, hypokalemia/hypomagnesemia/hypophosphatemia treated with K-Phos. Improvement to renal function noted. Patient passed bedside swallow and ordered a diet. Tracheal aspirate with MRSA-> Zyvox every 12 and ID consulted Hospitalist Physical - Constitutional Vitals: Temp Pulse Resp BP Pulse Ox 98.8 F 83 19 164/80 98 11/14/20 13:35 11/14/20 13:15 11/14/20 13:15 11/14/20 13:15 11/14/20 13:15 General appearance: Present: no acute distress, other (Intubated) - EENT Eyes: Present: PERRL, EOM intact ENT: hearing intact, clear oral mucosa, dentition normal - Neck Neck: Present: supple, normal ROM - Respiratory Respiratory effort: normal Respiratory: bilateral: diminished - Cardiovascular Rhythm: regular Heart Sounds: Present: S1 & S2. Absent: systolic murmur, diastolic murmur - Extremities Extremities: no ischemia, pulses intact, pulses symmetrical, No edema, normal temperature, normal color Peripheral Pulses: within normal limits - Abdominal General gastrointestinal: soft, non-tender, non-distended, normal bowel sounds - Integumentary Integumentary: Present: warm, dry - Psychiatric Psychiatric: appropriate mood/affect, cooperative - Neurologic Neurologic: CNII-XII intact, no focal deficits, moves all extremities - Allied Health Allied health notes reviewed: nursing, RT, social work HEART Score - HEART Score Troponin: Troponin T 0.873 ng/mL (0.00-0.029) H* D 11/09/20 23:05 Results - Labs CBC & Chem 7: 11/14/20 Unknown 11/14/20 Unknown Labs: Laboratory Last Values WBC 15.9 K/mm3 (4.5-11.0) H 11/14/20 Unknown RBC 2.61 M/mm3 (3.65-5.03) L 11/14/20 Unknown Hgb 7.8 gm/dl (10.1-14.3) L 11/14/20 Unknown Hct 23.1 % (30.3-42.9) L 11/14/20 Unknown MCV 89 fl (79-97) 11/14/20 Unknown MCH 30 pg (28-32) 11/14/20 Unknown MCHC 34 % (30-34) 11/14/20 Unknown RDW 15.1 % (13.2-15.2) 11/14/20 Unknown Plt Count 164 K/mm3 (140-440) 11/14/20 Unknown Lymph % (Auto) 15.4 % (13.4-35.0) 11/13/20 02:11 [place] % (Auto) 8.9 % (0.0-7.3) H 11/13/20 02:11 Eos % (Auto) 1.5 % (0.0-4.3) 11/13/20 02:11 Baso % (Auto) 0.7 % (0.0-1.8) 11/13/20 02:11 Lymph # (Auto) 2.4 K/mm3 (1.2-5.4) 11/13/20 02:11 [place] # (Auto) 1.4 K/mm3 (0.0-0.8) H 11/13/20 02:11 Eos # (Auto) 0.2 K/mm3 (0.0-0.4) 11/13/20 02:11 Baso # (Auto) 0.1 K/mm3 (0.0-0.1) 11/13/20 02:11 Add Manual Diff Complete 11/10/20 04:28 Total Counted 100 11/10/20 04:28 Seg Neutrophils % 73.5 % (40.0-70.0) H 11/13/20 02:11 Seg Neuts % (Manual) 96.0 % (40.0-70.0) H 11/10/20 04:28 Lymphocytes % (Manual) 1.0 % (13.4-35.0) L 11/10/20 04:28 Monocytes % (Manual) 3.0 % (0.0-7.3) 11/10/20 04:28 Nucleated RBC % Not Reportable 11/10/20 04:28 Seg Neutrophils # 11.7 K/mm3 (1.8-7.7) H 11/13/20 02:11 Seg Neutrophils # Man 17.0 K/mm3 (1.8-7.7) H 11/10/20 04:28 Band Neutrophils # 0.0 K/mm3 11/10/20 04:28 Lymphocytes # (Manual) 0.2 K/mm3 (1.2-5.4) L 11/10/20 04:28 Abs React Lymphs (Man) 0.0 K/mm3 11/10/20 04:28 Monocytes # (Manual) 0.5 K/mm3 (0.0-0.8) 11/10/20 04:28 Eosinophils # (Manual) 0.0 K/mm3 (0.0-0.4) 11/10/20 04:28 Basophils # (Manual) 0.0 K/mm3 (0.0-0.1) 11/10/20 04:28 Metamyelocytes # 0.0 K/mm3 11/10/20 04:28 Myelocytes # 0.0 K/mm3 11/10/20 04:28 Promyelocytes # 0.0 K/mm3 11/10/20 04:28 Blast Cells # 0.0 K/mm3 11/10/20 04:28 WBC Morphology Not Reportable 11/10/20 04:28 Hypersegmented Neuts Not Reportable 11/10/20 04:28 Hyposegmented Neuts Not Reportable 11/10/20 04:28 Hypogranular Neuts Not Reportable 11/10/20 04:28 Smudge Cells Not Reportable 11/10/20 04:28 Toxic Granulation Not Reportable 11/10/20 04:28 Toxic Vacuolation Not Reportable 11/10/20 04:28 Dohle Bodies Not Reportable 11/10/20 04:28 Pelger-Huet Anomaly Not Reportable 11/10/20 04:28 Carmen Rods Not Reportable 11/10/20 04:28 Platelet Estimate Consistent w auto 11/10/20 04:28 Clumped Platelets Not Reportable 11/10/20 04:28 Plt Clumps, EDTA Not Reportable 11/10/20 04:28 Large Platelets Not Reportable 11/10/20 04:28 Giant Platelets Not Reportable 11/10/20 04:28 Platelet Satelliting Not Reportable 11/10/20 04:28 Plt Morphology Comment Not Reportable 11/10/20 04:28 RBC Morphology Not Reportable 11/10/20 04:28 Dimorphic RBCs Not Reportable 11/10/20 04:28 Polychromasia Not Reportable 11/10/20 04:28 Hypochromasia Not Reportable 11/10/20 04:28 Poikilocytosis Not Reportable 11/10/20 04:28 Anisocytosis 1+ 11/10/20 04:28 Microcytosis Not Reportable 11/10/20 04:28 Macrocytosis Not Reportable 11/10/20 04:28 Spherocytes Not Reportable 11/10/20 04:28 Pappenheimer Bodies Not Reportable 11/10/20 04:28 Sickle Cells Not Reportable 11/10/20 04:28 Target Cells Not Reportable 11/10/20 04:28 Tear Drop Cells Not Reportable 11/10/20 04:28 Ovalocytes Not Reportable 11/10/20 04:28 Helmet Cells Not Reportable 11/10/20 04:28 Lu-[place] Bodies Not Reportable 11/10/20 04:28 [place] Rings Not Reportable 11/10/20 04:28 [place] Cells Not Reportable 11/10/20 04:28 Bite Cells Not Reportable 11/10/20 04:28 Crenated Cell Not Reportable 11/10/20 04:28 Elliptocytes Not Reportable 11/10/20 04:28 Acanthocytes (Spur) Not Reportable 11/10/20 04:28 Rouleaux Not Reportable 11/10/20 04:28 Hemoglobin C Crystals Not Reportable 11/10/20 04:28 Schistocytes Not Reportable 11/10/20 04:28 Malaria parasites Not Reportable 11/10/20 04:28 [place] Bodies Not Reportable 11/10/20 04:28 Hem Pathologist Commnt No 11/10/20 04:28 PT 17.6 Sec. (12.2-14.9) H 11/12/20 04:26 INR 1.40 (0.87-1.13) H 11/12/20 04:26 APTT 162.1 Sec. (24.2-36.6) H* 11/12/20 04:26 Fibrinogen 299 mg/dl (211-480) 11/10/20 15:08 D-Dimer > 78620 ng/mlDDU (0-234) H 11/10/20 04:28 Heparin Anti-Xa Level 0.32 U.I./ml (0.3-0.7) 11/13/20 11:07 ABG pH 7.360 pH Units (7.350-7.450) 11/13/20 21: POC ABG pCO2 33.5 mmHg (32.0-48.0) 11/13/20 04:03 ABG pCO2 33.6 mm Hg 11/13/20 21: POC ABG pO2 145.7 mmHg (83-108) H 11/13/20 04:03 ABG pO2 97.2 mm Hg (80.0-90.0) H 11/13/20 21: POC ABG HCO3 17.9 11/13/20 04:03 ABG HCO3 18.6 mmol/L (20.0-26.0) L 11/13/20 21:22 ABG O2 Saturation 97.4 % (95.0-99.0) 11/13/20 21: ABG O2 Content 12.5 (0.0-44) 11/13/20 21:22 POC ABG Base Excess -7.1 11/13/20 04:03 ABG Base Excess -6.1 mmol/L (-2.0-3.0) L 11/13/20 21: ABG Hemoglobin 9.2 gm/dl (12.0-16.0) L 11/13/20 21:22 ABG Oxyhemoglobin 97.8 (94-98) 11/13/20 04:03 ABG Carboxyhemoglobin 1.5 % (0.0-5.0) 11/13/20 21: ABG Methemoglobin 0.4 % (0.0-1.5) 11/13/20 21:22 ABG Sodium 135.3 mmol/L (136.0-145.0) L 11/13/20 04:03 ABG Potassium 3.7 mmol/L (3.40-4.50) 11/13/20 04:03 ABG Chloride 113.0 mmol/L (98-107) H 11/13/20 04:03 ABG Glucose 108 mg/dL (65-95) H 11/13/20 04:03 Oxyhemoglobin 95.6 % (95.0-99.0) 11/13/20 21:22 Carboxyhemoglobin 0.7 (0.5-1.5) 11/13/20 04:03 FiO2 30 % 11/13/20 21:22 FiO2 % 40.0 11/13/20 04:03 Sodium 139 mmol/L (137-145) 11/14/20 Unknown Potassium 3.3 mmol/L (3.6-5.0) L 11/14/20 Unknown Chloride 107.8 mmol/L (98-107) H 11/14/20 Unknown Carbon Dioxide 18 mmol/L (22-30) L 11/14/20 Unknown Anion Gap 17 mmol/L 11/14/20 Unknown BUN 22 mg/dL (7-17) H 11/14/20 Unknown Creatinine 1.7 mg/dL (0.6-1.2) H 11/14/20 Unknown Estimated GFR 35 ml/min 11/14/20 Unknown BUN/Creatinine Ratio 13 % 11/14/20 Unknown Glucose 96 mg/dL (65-100) 11/14/20 Unknown POC Glucose 94 mg/dL (70-105) 11/14/20 11:34 Lactic Acid 1.20 mmol/L (0.7-2.0) 11/11/20 23:20 Calcium 8.2 mg/dL (8.4-10.2) L 11/14/20 Unknown Phosphorus 1.70 mg/dL (2.5-4.5) L 11/14/20 Unknown Magnesium 1.40 mg/dL (1.7-2.3) L 11/14/20 Unknown Total Bilirubin 0.50 mg/dL (0.1-1.2) 11/14/20 Unknown Direct Bilirubin < 0.2 mg/dL (0-0.2) 11/09/20 17:24 Indirect Bilirubin 0.1 mg/dL 11/09/20 17:24 AST 34 units/L (5-40) 11/14/20 Unknown ALT 88 units/L (7-56) H 11/14/20 Unknown Alkaline Phosphatase 110 units/L (35-129) 11/14/20 Unknown Lactate Dehydrogenase 1637 units/L (91-180) H 11/10/20 04:28 Total Creatine Kinase 449 units/L (30-135) H 11/09/20 23:05 CK-MB (CK-2) 18.4 ng/mL (0.0-4.0) H 11/09/20 23:05 CK-MB (CK-2) Rel Index 4.0 (0-4) 11/09/20 23:05 Troponin T 0.873 ng/mL (0.00-0.029) H* D 11/09/20 23:05 C-Reactive Protein 3.50 mg/dL (0.00-1.30) H 11/10/20 04:28 NT-Pro-B Natriuret Pep 1169 pg/mL (0-900) H 11/09/20 17:24 Total Protein 6.0 g/dL (6.3-8.2) L 11/14/20 Unknown Albumin 2.7 g/dL (3.9-5) L 11/14/20 Unknown Albumin/Globulin Ratio 0.8 % 11/14/20 Unknown Triglycerides 163 mg/dL (2-149) H 11/09/20 17:24 Cholesterol 118 mg/dL (50-199) 11/09/20 17:24 LDL Cholesterol Direct 72 mg/dL (50-130) 11/09/20 17:24 HDL Cholesterol 29 mg/dL (40-59) L 11/09/20 17:24 Cholesterol/HDL Ratio 4.06 % 11/09/20 17:24 Procalcitonin 9.69 ng/mL (<0.15) 11/10/20 04:28 Arterial Blood Glucose 108 mg/dL (65-95) H 11/13/20 04:03 Arterial Blood Ionized Calcium 4.3 mg/dL (4.6-5.3) L 11/13/20 04:03 Urine Color Straw (Yellow) 11/09/20 19:07 Urine Turbidity Clear (Clear) 11/09/20 19:07 Urine pH 7.0 (5.0-7.0) 11/09/20 19:07 Ur Specific Sachse 1.003 (1.003-1.030) 11/09/20 19:07 Urine Protein <15 mg/dl mg/dL (Negative) 11/09/20 19:07 Urine Glucose (UA) Neg mg/dL (Negative) 11/09/20 19:07 Urine Ketones Neg mg/dL (Negative) 11/09/20 19:07 Urine Blood Mod (Negative) 11/09/20 19:07 Urine Nitrite Neg (Negative) 11/09/20 19:07 Urine Bilirubin Neg (Negative) 11/09/20 19:07 Urine Urobilinogen < 2.0 mg/dL (<2.0) 11/09/20 19:07 Ur Leukocyte Esterase Neg (Negative) 11/09/20 19:07 Urine WBC (Auto) 2.0 /HPF (0.0-6.0) 11/09/20 19:07 Urine RBC (Auto) 2.0 /HPF (0.0-6.0) 11/09/20 19:07 U Epithel Cells (Auto) 1.0 /HPF (0-13.0) 11/09/20 19:07 Urine Bacteria (Auto) 1+ /HPF (Negative) 11/09/20 19:07 Urine Creatinine 80.9 mg/dL (0.1-20.0) H 11/10/20 11:06 Urine Sodium 48 mmol/L 11/10/20 11:06 Urine Chloride 38.8 mmolL (110-250) L 11/10/20 11:06 Urine Opiates Screen Negative 11/09/20 19:07 Urine Methadone Screen Negative 11/09/20 19:07 Ur Barbiturates Screen Negative 11/09/20 19:07 Ur Phencyclidine Scrn Negative 11/09/20 19:07 Ur Amphetamines Screen Negative 11/09/20 19:07 U Benzodiazepines Scrn Negative 11/09/20 19:07 Urine Cocaine Screen Negative 11/09/20 19:07 U Marijuana (THC) Screen Negative 11/09/20 19:07 Drugs of Abuse Note Disclamer 11/09/20 19:07 Coronavirus (PCR) Negative (Negative) 11/10/20 Unknown Hepatitis A IgM Ab Nonreactive (NonReactive) 11/12/20 12:34 Hep Bs Antigen Nonreactive (Negative) 11/12/20 12:34 Hepatitis C Antibody Nonreactive (NonReactive) 11/12/20 12:34 Blood Type O POSITIVE 11/09/20 17:24 Antibody Screen Negative 11/09/20 17:24 Crossmatch See Detail 11/09/20 17:24 Microbiology: Microbiology 11/12/20 08:30 Tracheal Aspirate Sputum Culture - Final Methicillin Resist S. Aureus 11/09/20 23:05 Peripheral/Venous Blood Culture - Preliminary NO GROWTH AFTER 4 DAYS 11/09/20 22:59 Peripheral/Venous Blood Culture - Preliminary NO GROWTH AFTER 4 DAYS Gonsalves/IV: Voiding Method Indwelling Catheter Active Medications - Current Medications Current Medications: Generic Name Dose Route Start Last Admin Trade Name Freq PRN Reason Stop Dose Admin Acetaminophen 650 mg 11/09/20 23:07 Acetaminophen 650 Mg Rect Supp ND Q6H PRN Pain MILD(1-3)/Fever >100.5/REYES Acetaminophen 650 mg 11/09/20 23:59 Acetaminophen 325 Mg Tab PO Q6H PRN Pain, Mild (1-3) Hydrocodone Bitart/Acetaminophen 2 each 11/09/20 23:59 Hydrocodone/Acetaminophen 5-325 Mg Tab PO Q6H PRN Pain, Moderate (4-6) Dextrose 50 ml 11/11/20 11:10 Dextrose 50% In Water (25gm) 50 Ml Syringe IV Q30MIN PRN Hypoglycemia Protocol Hydralazine HCl 10 mg 11/10/20 16:49 11/14/20 03:45 Hydralazine 20 Mg/1 Ml Inj IV 10 mg Q6H PRN Administration Blood Pressure Hydrophilic Ointment 1 applic 11/09/20 17:08 Lip Therapy Vaseline TP Q2H PRN Dry Lips NORepinephrine/NS 8 MG-250 ML 8 mg in 250 mls @ 3.75 mls/hr 11/09/20 18:00 11/12/20 23:59 Norepinephrine/Ns 8 Mg-250 Ml (Double Conc) IV 0 mcg/min TITRATE MELONY 0 mls/hr Titration Protocol 2 MCG/MIN Heparin Sodium/Sodium Chloride 25,000 unit in 500 mls @ 24 mls/hr 11/10/20 12:00 11/14/20 05:24 Heparin/ 0.45% Nacl-25,000 Unit/500 Ml IV 800 units/hr TITR MELONY 16 mls/hr Administration Protocol 1,200 UNITS/HR Linezolid 600 mg in 300 mls @ 300 mls/hr 11/14/20 14:00 Zyvox 600mg/300ml IV 11/19/20 13:59 Q12H [facility] Protocol Insulin Human Regular 0 units 11/11/20 12:00 11/14/20 12:14 Insulin Regular, Human 100 Units/1 Ml SUB-Q Not Given Q6H [facility] Protocol Magnesium Hydroxide 30 ml 11/09/20 23:07 Magnesium Hydroxide (Mom) Oral Liqd Udc PO Q4H PRN Constipation Metoprolol Tartrate 12.5 mg 11/14/20 10:00 11/14/20 10:34 Metoprolol Tartrate 25 Mg Tab PO 12.5 mg BID MELONY Administration Multi-Ingred Cream/Lotion/Oil/Oint 1 applic 11/09/20 17:08 Mineral Oil/Petrolatum, White Ophth Oint 3.5 Gm OU Q4H PRN Dry Eye(s) Ondansetron HCl 4 mg 11/09/20 23:07 Ondansetron 4 Mg/2 Ml Inj IV Q8H PRN Nausea And Vomiting Pantoprazole Sodium 40 mg 11/11/20 22:00 11/14/20 10:35 Pantoprazole 40 Mg Inj IV 40 mg BID MELONY Administration Senna/Docusate Sodium 1 tab 11/09/20 22:00 11/14/20 10:35 Sennosides/Docusate Sodium 8.6/50 Mg Tab FEEDTUBE 1 tab BID MELONY Administration Sodium Chloride 10 ml 11/10/20 10:00 11/14/20 10:35 Sodium Chloride 0.9% 10 Ml Flush Syringe IV 10 ml BID MELONY Administration Sodium Chloride 10 ml 11/09/20 23:07 Sodium Chloride 0.9% 10 Ml Flush Syringe IV PRN PRN LINE FLUSH Nutrition/Malnutrition Assess - Dietary Evaluation Nutrition/Malnutrition Findings: Nutrition Notes Start: 11/10/20 09:17 Freq: Status: Active Protocol: Document 11/11/20 16:39 GB (Rec: 11/11/20 16:53 GB [email or web address]) Nutrition Notes Initial or Follow up Reassessment Current Diagnosis CKD(stage I-IV),Hypertension Other Pertinent Diagnosis pneu, cardiopulmonary arrest, SIRS, acute diastolic heart failure Current Diet NPO, TF ordered Labs/Tests 11/11: Na 136, BUN 25, creatinine 2.5, glucose 192, Ca 7.6, AST 232, ALT 309 Pertinent Medications Azithromycin, dobutmine Hcl/D5 x 6.075ml/hr (25kcal), Fentanyl, Norepinephrine/Ns8 Mg250, Propofol at 3.592 ml/hr (95 kcal), NaCl Height 5 ft 6 in Weight 81 kg [place] Body Weight (kg) 59.09 BMI 28.8 Weight change and time frame stable at this time Weight Status Overweight Subjective/Other Information MD consult for diet education. Due to advanced age and vent status, pt not appropriate. Pt on hold in ED. 11/11 in cc1. orders for TF, vent continues. NG tube for suction at this time Percent of energy/protein needs met: 0%. NPO continues, NG for suction at this time. Burn Absent Trauma Absent GI Symptoms Other Food Allergy No Skin Integrity/Comment no complications at this time. Current % PO Other Minimum of two criteria No #1 Nutrition Diagnosis Inadequate oral intake Comments: 11/11: vent continues, TF orders entered Etiology ARF As Evidenced by Signs and Symptoms pt on vent and unable to consume PO Diagnosis Progress(for reassessment Continues documentation) Is patient on ventilator? Yes Is Patient Ambulatory and/or Out of Bed No REE-([facility]-confined to bed) 1533.288 Kcal/Kg value to use for calculation 22 Approximate Energy Requirements Using 1782 kcal/Kg Calculation Used for Recommendations Kcal/kg Additional Notes Protein: (1.2-1.5g/kg @ 81kg) 97-121g Fluid: 1 ml/kcal or per MD Nutrition Intervention Change Diet Order: Advance as able Nutrition Support: Recommend TF: Vital AF 1.2 at 50 ml/hr Kcal 1,440 Protein (gm) 90 Fluid (mL) 973 Goal #1 Diet advancement or TF start 11/11: TF orders entered Vital 1.2 AF @ 50ml/hr, flush 100ml/ 4hr Goal #2 TF at goal rate 50ml/hr and tolerated Anticipated Discharge Needs: Unable to determine at this time Follow-Up By: 11/15/20 Additional Comments f/u: TF tolerance, at goal of 50ml/hr
[2020-11-14 14:26] LABS: ABG Base Excess -3.7 mmol/L (-2.0-3.0); ABG HCO3 20.1 mmol/L (20.0-26.0); ABG Methemoglobin 0.3 % (0.0-1.5); ABG Oxygen Saturation 97.6 % (95.0-99.0); ABG PCO2 31.2 mm Hg; ABG PH 7.427 pH Units (7.350-7.450); ABG PO2 94.7 mm Hg (80.0-90.0)
[2020-11-14] MEDS: LINEZOLID 600 MG/300 ML BAG IV SCH (14:34)
--- NOTE | 2020-11-14 14:43 | Consultation ---
History of Present Illness - Reason for Consult Consult date: 11/14/20 - History of Present Illness 84-year-old female past medical history hypertension, CKD, arthritis presented to hospital 5 days ago having shortness of breath. On presentation she is unresponsive and had cardiac arrest with eventual ROSC. She was found to have bilateral pulmonary emboli with right heart strain, bibasilar airspace consolidation. She developed renal failure and placed on EKOS. She was extubated today, 11/14/2020, and tracheal aspirate grew MRSA. Afebrile, T-max 100 and white count 15.9. Covid negative. Renal function improving. Cultures no growth so far, tracheal aspirate with MRSA. Imaging personally reviewed: Chest x-ray: Ill-defined densities in lower lungs. Review of Systems: Bold if positive, otherwise negative General: fevers, chills, rigors HEENT: visual disturbance, diplopia, eye pain Respiratory: cough, sputum, hemoptysis, shortness of breath Cardiovascular: chest pain, syncope Gastrointestinal: nausea, vomiting, diarrhea, abdominal pain Genitourinary: dysuria, hematuria, flank pain Musculoskeletal: neck pain, back pain, joint pain, edema Neurologic: headaches, seizures Hematologic: easy bruising or bleeding Endocrine: night sweats, acute weight loss Skin: rash, jaundice, redness Psychiatric: suicidal, homicidal ideation Past History Past Medical History: arthritis, hypertension, renal failure, other (Chronic Right Bundle Branch Block) Past Surgical History: No surgical history Social history: no significant social history Medications and Allergies Allergies Allergy/AdvReac Type Severity Reaction Status Date / Time No Known Allergies Allergy Verified 11/09/20 17:19 Active Meds: Active Medications Acetaminophen (Acetaminophen 650 Mg Rect Supp) 650 mg HI Q6H PRN PRN Reason: Pain MILD(1-3)/Fever >100.5/REYES Acetaminophen (Acetaminophen 325 Mg Tab) 650 mg PO Q6H PRN PRN Reason: Pain, Mild (1-3) Hydrocodone Bitart/Acetaminophen (Hydrocodone/Acetaminophen 5-325 Mg Tab) 2 each PO Q6H PRN PRN Reason: Pain, Moderate (4-6) Dextrose (Dextrose 50% In Water (25gm) 50 Ml Syringe) 50 ml IV Q30MIN PRN; Protocol PRN Reason: Hypoglycemia Hydralazine HCl (Hydralazine 20 Mg/1 Ml Inj) 10 mg IV Q6H PRN PRN Reason: Blood Pressure Last Admin: 11/14/20 03:45 Dose: 10 mg Documented by: Hydrophilic Ointment (Lip Therapy Vaseline) 1 applic TP Q2H PRN PRN Reason: Dry Lips NORepinephrine/NS 8 MG-250 ML (Norepinephrine/Ns 8 Mg-250 Ml (Double Conc)) 8 mg in 250 mls @ 3.75 mls/hr IV TITRATE MELONY; Protocol Last Titration: 11/12/20 23:59 Dose: 0 mcg/min, 0 mls/hr Documented by: Heparin Sodium/Sodium Chloride (Heparin/ 0.45% Nacl-25,000 Unit/500 Ml) 25,000 unit in 500 mls @ 24 mls/hr IV TITR MELONY; Protocol Last Admin: 11/14/20 05:24 Dose: 800 units/hr, 16 mls/hr Documented by: Linezolid (Zyvox 600mg/300ml) 600 mg in 300 mls @ 300 mls/hr IV Q12H MELONY; Protocol Stop: 11/19/20 13:59 Last Admin: 11/14/20 14:34 Dose: 300 mls/hr Documented by: Insulin Human Regular (Insulin Regular, Human 100 Units/1 Ml) 0 units SUB-Q Q6H MELONY; Protocol Last Admin: 11/14/20 12:14 Dose: Not Given Documented by: Magnesium Hydroxide (Magnesium Hydroxide (Mom) Oral Liqd Udc) 30 ml PO Q4H PRN PRN Reason: Constipation Metoprolol Tartrate (Metoprolol Tartrate 25 Mg Tab) 12.5 mg PO BID [facility] Last Admin: 11/14/20 10:34 Dose: 12.5 mg Documented by: Multi-Ingred Cream/Lotion/Oil/Oint (Mineral Oil/Petrolatum, White Ophth Oint 3.5 Gm) 1 applic OU Q4H PRN PRN Reason: Dry Eye(s) Ondansetron HCl (Ondansetron 4 Mg/2 Ml Inj) 4 mg IV Q8H PRN PRN Reason: Nausea And Vomiting Pantoprazole Sodium (Pantoprazole 40 Mg Inj) 40 mg IV BID [facility] Last Admin: 11/14/20 10:35 Dose: 40 mg Documented by: Senna/Docusate Sodium (Sennosides/Docusate Sodium 8.6/50 Mg Tab) 1 tab FEEDTUBE BID [facility] Last Admin: 11/14/20 10:35 Dose: 1 tab Documented by: Sodium Chloride (Sodium Chloride 0.9% 10 Ml Flush Syringe) 10 ml IV BID [facility] Last Admin: 11/14/20 10:35 Dose: 10 ml Documented by: Sodium Chloride (Sodium Chloride 0.9% 10 Ml Flush Syringe) 10 ml IV PRN PRN PRN Reason: LINE FLUSH Physical Examination - Physical Exam Narrative exam: Physical Exam: Constitutional: Alert, cooperative. No acute distress Head, Ears, Nose: Normocephalic, atraumatic. External ears, nose normal Eyes: Conjunctivae/corneas clear. No icterus. No ptosis. Neck: Supple, no meningeal signs Oral: dentition fair, no thrush Cardiovascular: S1, S2 normal. Respiratory: Good air entry, clear to auscultation bilaterally GI: Soft, non-tender; bowel sounds normal. No peritoneal signs. Musculoskeletal: No pedal edema, no cyanosis. Skin: No rash or abscess Hem/Lymphatic: No palpable cervical or supraclavicular nodes. No lymphangitis Psych: No agitation Neurological: No agitation - Constitutional Vitals: Vital Signs Temp Pulse Resp BP Pulse Ox 98.8 F 83 19 164/80 98 11/14/20 13:35 11/14/20 13:15 11/14/20 13:15 11/14/20 13:15 11/14/20 13:15 Temperature -Last 24 Hours Temperature 98.8 F Temperature 99.7 F Temperature 99.7 F Temperature 100.0 F Temperature 99.5 F Results - Labs CBC & Chem 7: 11/14/20 Unknown 11/14/20 Unknown Labs: Abnormal lab results 11/13/20 11/13/20 11/13/20 Range/Units 14:30 17:10 21:22 WBC (4.5-11.0) K/mm3 RBC (3.65-5.03) M/mm3 Hgb 7.5 L (10.1-14.3) gm/dl Hct 22.6 L (30.3-42.9) % ABG pO2 97.2 H (80.0-90.0) mm Hg ABG HCO3 18.6 L (20.0-26.0) mmol/L ABG Base Excess -6.1 L (-2.0-3.0) mmol/L ABG Hemoglobin 9.2 L (12.0-16.0) gm/dl Potassium (3.6-5.0) mmol/L Chloride (98-107) mmol/L Carbon Dioxide (22-30) mmol/L BUN (7-17) mg/dL Creatinine (0.6-1.2) mg/dL POC Glucose 110 H (70-105) mg/dL Calcium (8.4-10.2) mg/dL Phosphorus (2.5-4.5) mg/dL Magnesium (1.7-2.3) mg/dL ALT (7-56) units/L Total Protein (6.3-8.2) g/dL Albumin (3.9-5) g/dL 11/14/20 11/14/20 11/14/20 Range/Units 12:15 Unknown Unknown WBC 15.9 H (4.5-11.0) K/mm3 RBC 2.61 L (3.65-5.03) M/mm3 Hgb 7.8 L (10.1-14.3) gm/dl Hct 23.1 L (30.3-42.9) % ABG pO2 94.7 H (80.0-90.0) mm Hg ABG HCO3 (20.0-26.0) mmol/L ABG Base Excess -3.7 L (-2.0-3.0) mmol/L ABG Hemoglobin 8.3 L (12.0-16.0) gm/dl Potassium 3.3 L (3.6-5.0) mmol/L Chloride 107.8 H (98-107) mmol/L Carbon Dioxide 18 L (22-30) mmol/L BUN 22 H (7-17) mg/dL Creatinine 1.7 H (0.6-1.2) mg/dL POC Glucose (70-105) mg/dL Calcium 8.2 L (8.4-10.2) mg/dL Phosphorus 1.70 L (2.5-4.5) mg/dL Magnesium 1.40 L (1.7-2.3) mg/dL ALT 88 H (7-56) units/L Total Protein 6.0 L (6.3-8.2) g/dL Albumin 2.7 L (3.9-5) g/dL Assessment and Plan Cultures: Blood culture no growth so far Sputum culture MRSA A/P: 84-year-old female past medical history hypertension, CKD, arthritis admitted with bilateral pulmonary emboli, found to have MRSA tracheitis #MRSA tracheitis: agree with linezolid given tenuous renal function. #Bilateral PE: s/p EKOS #TYLER: renally dose medications. Recs: -Continue linezolid 600mg q12h to complete 8 days. -Follow up blood cultures. Thank you for the consult, we will continue to follow. Aguilar Ng MD [facility] ([facility] O: [phone] F: [phone]
--- NOTE | 2020-11-14 14:44 | Progress Note ---
Assessment and Plan Continue anticoagulation with heparin gtt. Closely monitor H/H. May increase Lopressor as needed for BP optimization. Recommend PRN repletion of electrolytes to avoid arrhythmias. Continue other present mgmt as per Primary teams. Prognosis remains guarded. Will follow. Pt seen in conjunction with Dr. Sofia Gray, who agrees with the assessment and plan of care. - Patient Problems (1) Acute respiratory failure with hypoxia Current Visit: Yes Status: Acute (2) Pneumonia Current Visit: Yes Status: Acute (3) Cardiopulmonary arrest Current Visit: Yes Status: Resolved (4) Shock Current Visit: Yes Status: Resolved (5) Bilateral pulmonary embolism Current Visit: Yes Status: Acute (6) Left leg DVT Current Visit: Yes Status: Acute (7) Anemia Current Visit: Yes Status: Acute (8) GI bleed Current Visit: Yes Status: Resolved (9) Acute kidney injury superimposed on CKD Current Visit: Yes Status: Acute (10) Paroxysmal atrial fibrillation Current Visit: Yes Status: Acute (11) RBBB Current Visit: Yes Status: Chronic (12) Non-STEMI (non-ST elevated myocardial infarction) Current Visit: Yes Status: Acute Subjective Date of service: 11/14/20 Principal diagnosis: PE Interval history: Extubated successfully today. On 2L NC. BP stable off pressors. SR 80s on tele. Objective Last Vital Signs Temp 98.8 F 11/14/20 13:35 Pulse 83 11/14/20 13:15 Resp 19 11/14/20 13:15 BP 164/80 11/14/20 13:15 Pulse Ox 98 11/14/20 13:15 - Physical Examination General: Appears Well HEENT: Positive: EOMI, Normocephaly Neck: Positive: neck supple, trachea midline Cardiac: Positive: Reg Rate and Rhythm, S1/S2 Lungs: Positive: Decreased Breath Sounds Neuro: Positive: Grossly Intact Abdomen: Positive: Soft. Negative: Tender Skin: Negative: Rash Musculoskeletal: No Fluid Collection Extremities: Present: lower extr. pulses. Absent: edema - Labs and Meds Cardiac Enzymes 11/14/20 Range/Units Unknown AST 34 (5-40) units/L CBC 11/14/20 Range/Units Unknown WBC 15.9 H (4.5-11.0) K/mm3 RBC 2.61 L (3.65-5.03) M/mm3 Hgb 7.8 L (10.1-14.3) gm/dl Hct 23.1 L (30.3-42.9) % Plt Count 164 (140-440) K/mm3 Comprehensive Metabolic Panel 11/14/20 Range/Units Unknown Sodium 139 (137-145) mmol/L Potassium 3.3 L (3.6-5.0) mmol/L Chloride 107.8 H (98-107) mmol/L Carbon Dioxide 18 L (22-30) mmol/L BUN 22 H (7-17) mg/dL Creatinine 1.7 H (0.6-1.2) mg/dL Glucose 96 (65-100) mg/dL Calcium 8.2 L (8.4-10.2) mg/dL AST 34 (5-40) units/L ALT 88 H (7-56) units/L Alkaline Phosphatase 110 (35-129) units/L Total Protein 6.0 L (6.3-8.2) g/dL Albumin 2.7 L (3.9-5) g/dL - Imaging and Cardiology EKG: report reviewed Echo: report reviewed (11/10/2020 - EF 50-55%, normal RVSF, RV mildly dilated, mild MR, mild TR, mod pulm HTN w/RVSP of 51mmHg) - Telemetry EKG Rhythm: Sinus Rhythm - EKG Supraventricular dysrhythmia: atrial fibrillation AV and intraventricular conduction: right bundle branch block - Allied health notes Allied health notes reviewed: nursing
--- NOTE | 2020-11-14 17:35 | Event Note ---
Date: 11/14/20 I called Laura physician Dr. Solis at [phone] and discussed in detail updated patient's condition, tests and reports Informed that patient was extubated today, also updated about MRSA cultures of the sputum and ID consult, and treatment plan I answered her questions, and encouraged her to call back if she has any new concerns
--- NOTE | 2020-11-14 22:13 | Gastroenterology Progress Note ---
Assessment and Plan Nurse at bedside confirms no melena despite the bleeding unclear source (naso/oropharyngeal vs GI), and patient still on heparin drip Therefore recommend trend hgb, if drops or worsening overt bleeding will need to stop the heparin drip and pursue EGD Regarding elevated liver enzymes suspect due to her severe illness. To be thorough I checked hepatitis viral serologies which were negative. LFT much improved today I will continue to follow closely with you - Patient Problems (1) Upper GI hemorrhage Current Visit: Yes Status: Acute (2) Atrial fibrillation Current Visit: Yes Status: Acute Qualifiers: Atrial fibrillation type: persistent (not longstanding) Qualified Code(s): I48.19 - Other persistent atrial fibrillation; I48.1 - Persistent atrial fibrillation (3) Cardiopulmonary arrest Current Visit: Yes Status: Resolved (4) Transaminitis Current Visit: Yes Status: Acute Subjective Date of service: 11/14/20 Principal diagnosis: GI bleed Interval history: Patient seen this AM report of blood overnight noted, with old blood in suction canister, though interestingly nurse reports no melena no hematochezia, repeat Hgb pending as of when I saw the patient She remains intubated, no blood actively coming from OGT which is currently in place Objective - Constitutional Vitals: Temp Pulse Resp BP Pulse Ox 99.5 F 100 H 24 151/67 96 11/14/20 20:00 11/14/20 21:22 11/14/20 18:00 11/14/20 21:22 11/14/20 18:00 General appearance: other (intubated) - Respiratory Respiratory effort: other (intubated) - Gastrointestinal General gastrointestinal: Present: soft - Labs CBC & Chem 7: 11/14/20 Unknown 11/14/20 Unknown Labs: Laboratory Results - last 24 hr 11/13/20 11/14/20 11/14/20 23:32 05:28 11:34 WBC RBC Hgb Hct MCV MCH MCHC RDW Plt Count Heparin Anti-Xa Level ABG pH ABG pCO2 ABG pO2 ABG HCO3 ABG O2 Saturation ABG Base Excess ABG Hemoglobin ABG Carboxyhemoglobin ABG Methemoglobin Oxyhemoglobin FiO2 Sodium Potassium Chloride Carbon Dioxide Anion Gap BUN Creatinine Estimated GFR BUN/Creatinine Ratio Glucose POC Glucose 92 91 94 Calcium Phosphorus Magnesium Total Bilirubin AST ALT Alkaline Phosphatase C-Reactive Protein Total Protein Albumin Albumin/Globulin Ratio 11/14/20 11/14/20 11/14/20 12:15 14:50 14:50 WBC RBC Hgb Hct MCV MCH MCHC RDW Plt Count Heparin Anti-Xa Level 0.10 L ABG pH 7.427 ABG pCO2 31.2 ABG pO2 94.7 H ABG HCO3 20.1 ABG O2 Saturation 97.6 ABG Base Excess -3.7 L ABG Hemoglobin 8.3 L ABG Carboxyhemoglobin 0.8 ABG Methemoglobin 0.3 Oxyhemoglobin 96.5 FiO2 25 Sodium Potassium Chloride Carbon Dioxide Anion Gap BUN Creatinine Estimated GFR BUN/Creatinine Ratio Glucose POC Glucose Calcium Phosphorus Magnesium Total Bilirubin AST ALT Alkaline Phosphatase C-Reactive Protein 9.40 H Total Protein Albumin Albumin/Globulin Ratio 11/14/20 11/14/20 11/14/20 17:53 Unknown Unknown WBC 15.9 H RBC 2.61 L Hgb 7.8 L Hct 23.1 L MCV 89 MCH 30 MCHC 34 RDW 15.1 Plt Count 164 Heparin Anti-Xa Level ABG pH ABG pCO2 ABG pO2 ABG HCO3 ABG O2 Saturation ABG Base Excess ABG Hemoglobin ABG Carboxyhemoglobin ABG Methemoglobin Oxyhemoglobin FiO2 Sodium 139 Potassium 3.3 L Chloride 107.8 H Carbon Dioxide 18 L Anion Gap 17 BUN 22 H Creatinine 1.7 H Estimated GFR 35 BUN/Creatinine Ratio 13 Glucose 96 POC Glucose 113 H Calcium 8.2 L Phosphorus 1.70 L Magnesium 1.40 L Total Bilirubin 0.50 AST 34 ALT 88 H Alkaline Phosphatase 110 C-Reactive Protein Total Protein 6.0 L Albumin 2.7 L Albumin/Globulin Ratio 0.8
[2020-11-15] MEDS: INSULIN REGULAR, HUMAN 100 UNITS/1 ML SUB-Q SCH ×3 (00:19→16:54)
[2020-11-15] MEDS: hydrALAZINE 20 MG/1 ML INJ IV PRN ×2 (00:42→06:42)
[2020-11-15 03:05] LABS: Hematocrit 25.6 % (30.3-42.9); Hemoglobin 8.7 gm/dl (10.1-14.3); Mean Corpuscular HGB Conc 34 % (30-34); Mean Corpuscular Volume 91 fl (79-97); Platelet Count 179 K/mm3 (140-440); Red Blood Count 2.83 M/mm3 (3.65-5.03)
[2020-11-15] MEDS: LINEZOLID 600 MG/300 ML BAG IV SCH ×2 (03:12→16:54)
[2020-11-15 03:27] LABS: Calcium 8.2 mg/dL (8.4-10.2)
--- NOTE | 2020-11-15 08:55 | Progress Note ---
Assessment and Plan Assessment and plan: This 84-year-old female with HTN, CKD, chronic right BBB, arthritis admitted s/P cardiac arrest, pulmonary embolism , Pneumonia and GI bleed Neuro: Acute metabolic encephalopathy -CT head completed which shows no acute intracranial abnormality, probable meningioma along the right anterior frontal lobe -Avoid delirium -Patient is awake, follows commands, positive track/focus, pupils equal round reactive -Neurology consulted, appreciate recommendations -Per neurology obtain MRI with Geodon when possible Cardio: S/p cardiopulmonary arrest, atrial fibrillation, acute diastolic heart failure -Cardiology consulted, appreciate recommendations -Echo 11/10/2020-EF 50 to 55%, right ventricular systolic function is normal, right ventricle is mildly dilated, left atrium not well visualized, mild mitral regurgitation, moderate pulmonary hypertension -Vasopressor support with Levophed -s/p dopamine and dobutamine with IVF -Blood pressure monitoring per protocol -started on metoprolol 12.5 BID -As needed hydralazine Respiratory: Acute hypoxic respiratory failure, acute pulmonary medicine with acute cor pulmonale -[facility] consulted, appreciate recommendations -Intubated 11/09 with 7.0 at 22 at the lip-> extuabted 11/14 -Placed on NC -Pulmonary hygiene GI: Upper GI hemorrhage, elevated LFTs -GI consulted, appreciate recommendations -s/p Protonix drip and now on Protonix IV BID -Hepatic serologies negative, hepatic panel negative -Per GI will reassess for EGD if patient develops severe GI bleeding -BR: Senokot -24-hour net balance -127 -Trend LFT -Gastric occult positive -passed bedside swallow eval -CLD, advance as tolerated : Acute kidney injury, metabolic acidosis -Nephrology consulted, appreciate recommendations -Likely prerenal injury in setting of acute bilateral pulmonary embolism with cor pulmonale and right-sided heart failure -Gentle IV hydration -Renal ultrasound showed no evidence of obstructive PE, bilateral echogenic kidneys -No indication for renal replacement at this time per nephrology -Urine electrolytes -Strict intake and output -Daily weights -Avoid nephrotoxic medications -Trend BMP ID: Bilateral pneumonia, SIRS, lactic acidosis -Empiric antibiotics with Rocephin and azithromycin (11/09-11/13) -Monitor fever and WBC curve -CXR noted with worsening bilateral airspace disease -Tracheal aspirate with MRSA -ID consulted -started on ziovox Heme: Large bilateral segmental and subsegmental PE, thrombocytopenia, coagulopathy, anemia, Left LE DVT -Vascular surgery consulted, appreciate recommendations -S/p pulmonary angiography with placement of thrombolytic catheters -Heparin drip -Transfuse for hemoglobin less than 7 -Trend CBC -S/p 1 unit PRBC -monitor for bleeding Endo: NAD -Accucheck q6 -Avoid hypoglycemia We will closely monitor patient and adjust management as needed Plan of care reviewed with the patient and her nurse, discussed with pulmonary critical The high probability of a clinically significant, sudden or life threatening deterioration of the [multi] system(s) required my full and direct attention, intervention and personal management. The aggregate critical care time was [60] minutes. This time is in addition to time spent performing reported procedures but includes the following: [x] Data Review and interpretation [x] Patient assessment and monitoring of vital signs [x] Documentation [x] Medication orders and management Disposition Plan: icu Total Time Spent with Patient (Minutes): 60 History Interval history: This is a 84-year-old female with HTN, CKD, chronic RBBB, arthritis who presented to the emergency department on 11/09 from the department With valuation of difficulty breathing and shortness of breath. Upon arrival to the emergency department patient was actively unresponsive and positive pressure ventilation was started and subsequently had a cardiac arrest with eventual ROSC. Work-up emergency department revealed elevated D-dimer of greater than 10,000, elevated lactic acid, CTA showed bilateral segmental and subsegmental emboli with right heart strain, bibasilar airspace consolidation and trace right pleural effusion compatible with pneumonia. Vascular surgery was consulted for thrombolysis. Patient was admitted to the hospitalist service with consults to [facility], cardiology, nephrology and gastroenterology. 11/10: Patient seen and examined this morning review of her electrolytes shows some abnormalities with noted worsening renal failure in the setting of hypotension. Noted A. fib on EKG. Patient remains on EKOS system. Will obtain cardiology and nephrology evaluation. Echocardiogram to further evaluate condition of the heart in the setting of her cardiac arrest. Patient remains a PUI Covid testing is pending. Discussed with senior planning manager this morning may consider changing from dopamine to dobutamine but will await cardiology evaluation. Possible further hydration in the setting of underlying right heart failure. I did discuss with the family who are not aware of any renal problems in the past. Ventilator management per breastfeeding peer counselor. Closely monitor leukocytosis no fever noted at this time. I will replace potassium as noted hypokalemia Discussed with family the two daughters in detail 11/11: Patient is having blood-tinged secretions while suctioning, NG tube to dark secretions, gastric occult sent. PICC line ordered to be placed. Cardiology to change dopamine to dobutamine and start normal saline. No plans for hemodialysis per nephrology. 11/12: CPAP trial, PICC placement today and will remove femoral line after placement. No indication for renal replacement per nephrology. BLE doppler US per vascular. 11/13: Patient tolerating CPAP trial, per neurology consider MRI brain with Manuel, patient has staph areas in tracheal aspirate, appropriate response to PRBC, remains off vasopressors, worsening renal function. 11/14: Patient was extubated today, hypokalemia/hypomagnesemia/hypophosphatemia treated with K-Phos. Improvement to renal function noted. Patient passed bedside swallow and ordered a diet. Tracheal aspirate with MRSA-> Zyvox every 12 and ID consulted 11/15; PT, OT requested, will transition heparin drip to Eliquis with the morning dose tomorrow Mild hypokalemia, corrected with KCl, other electrolytes normal range, discussed with breastfeeding peer counselor Dr. Wagner History Interval history: I have seen and examined the patient at the bedside this morning Patient's chart and medications reviewed Patient was extubated yesterday, today she is alert and awake slightly drowsy at times Generalized weakness No new complaints Hospitalist Physical - Constitutional Vitals: Temp Pulse Resp BP Pulse Ox 99.8 F H 102 H 23 163/76 93 11/15/20 07:57 11/15/20 06:00 11/15/20 06:00 11/15/20 06:00 11/15/20 06:00 General appearance: Present: no acute distress, well-nourished, obese, other (Extubated) - EENT Eyes: Present: PERRL, EOM intact - Neck Neck: Present: supple, normal ROM - Respiratory Respiratory effort: normal Respiratory: bilateral: diminished, negative: rales, rhonchi, wheezing - Cardiovascular Rhythm: regular Heart Sounds: Present: S1 & S2 - Extremities Extremities: no ischemia, pulses intact - Abdominal General gastrointestinal: soft, non-tender, non-distended, normal bowel sounds - Integumentary Integumentary: Present: clear, warm - Psychiatric Psychiatric: appropriate mood/affect, cooperative - Neurologic Neurologic: moves all extremities HEART Score - HEART Score Troponin: Troponin T 0.873 ng/mL (0.00-0.029) H* D 11/09/20 23:05 Results - Labs CBC & Chem 7: 11/15/20 02:46 11/15/20 02:46 Labs: Laboratory Last Values WBC 15.2 K/mm3 (4.5-11.0) H 11/15/20 02:46 RBC 2.83 M/mm3 (3.65-5.03) L 11/15/20 02:46 Hgb 8.7 gm/dl (10.1-14.3) L 11/15/20 02:46 Hct 25.6 % (30.3-42.9) L 11/15/20 02:46 MCV 91 fl (79-97) 11/15/20 02:46 MCH 31 pg (28-32) 11/15/20 02:46 MCHC 34 % (30-34) 11/15/20 02:46 RDW 15.0 % (13.2-15.2) 11/15/20 02:46 Plt Count 179 K/mm3 (140-440) 11/15/20 02:46 Lymph % (Auto) 15.4 % (13.4-35.0) 11/13/20 02:11 [place] % (Auto) 8.9 % (0.0-7.3) H 11/13/20 02:11 Eos % (Auto) 1.5 % (0.0-4.3) 11/13/20 02:11 Baso % (Auto) 0.7 % (0.0-1.8) 11/13/20 02:11 Lymph # (Auto) 2.4 K/mm3 (1.2-5.4) 11/13/20 02:11 [place] # (Auto) 1.4 K/mm3 (0.0-0.8) H 11/13/20 02:11 Eos # (Auto) 0.2 K/mm3 (0.0-0.4) 11/13/20 02:11 Baso # (Auto) 0.1 K/mm3 (0.0-0.1) 11/13/20 02:11 Add Manual Diff Complete 11/10/20 04:28 Total Counted 100 11/10/20 04:28 Seg Neutrophils % 73.5 % (40.0-70.0) H 11/13/20 02:11 Seg Neuts % (Manual) 96.0 % (40.0-70.0) H 11/10/20 04:28 Lymphocytes % (Manual) 1.0 % (13.4-35.0) L 11/10/20 04:28 Monocytes % (Manual) 3.0 % (0.0-7.3) 11/10/20 04:28 Nucleated RBC % Not Reportable 11/10/20 04:28 Seg Neutrophils # 11.7 K/mm3 (1.8-7.7) H 11/13/20 02:11 Seg Neutrophils # Man 17.0 K/mm3 (1.8-7.7) H 11/10/20 04:28 Band Neutrophils # 0.0 K/mm3 11/10/20 04:28 Lymphocytes # (Manual) 0.2 K/mm3 (1.2-5.4) L 11/10/20 04:28 Abs React Lymphs (Man) 0.0 K/mm3 11/10/20 04:28 Monocytes # (Manual) 0.5 K/mm3 (0.0-0.8) 11/10/20 04:28 Eosinophils # (Manual) 0.0 K/mm3 (0.0-0.4) 11/10/20 04:28 Basophils # (Manual) 0.0 K/mm3 (0.0-0.1) 11/10/20 04:28 Metamyelocytes # 0.0 K/mm3 11/10/20 04:28 Myelocytes # 0.0 K/mm3 11/10/20 04:28 Promyelocytes # 0.0 K/mm3 11/10/20 04:28 Blast Cells # 0.0 K/mm3 11/10/20 04:28 WBC Morphology Not Reportable 11/10/20 04:28 Hypersegmented Neuts Not Reportable 11/10/20 04:28 Hyposegmented Neuts Not Reportable 11/10/20 04:28 Hypogranular Neuts Not Reportable 11/10/20 04:28 Smudge Cells Not Reportable 11/10/20 04:28 Toxic Granulation Not Reportable 11/10/20 04:28 Toxic Vacuolation Not Reportable 11/10/20 04:28 Dohle Bodies Not Reportable 11/10/20 04:28 Pelger-Huet Anomaly Not Reportable 11/10/20 04:28 Carmen Rods Not Reportable 11/10/20 04:28 Platelet Estimate Consistent w auto 11/10/20 04:28 Clumped Platelets Not Reportable 11/10/20 04:28 Plt Clumps, EDTA Not Reportable 11/10/20 04:28 Large Platelets Not Reportable 11/10/20 04:28 Giant Platelets Not Reportable 11/10/20 04:28 Platelet Satelliting Not Reportable 11/10/20 04:28 Plt Morphology Comment Not Reportable 11/10/20 04:28 RBC Morphology Not Reportable 11/10/20 04:28 Dimorphic RBCs Not Reportable 11/10/20 04:28 Polychromasia Not Reportable 11/10/20 04:28 Hypochromasia Not Reportable 11/10/20 04:28 Poikilocytosis Not Reportable 11/10/20 04:28 Anisocytosis 1+ 11/10/20 04:28 Microcytosis Not Reportable 11/10/20 04:28 Macrocytosis Not Reportable 11/10/20 04:28 Spherocytes Not Reportable 11/10/20 04:28 Pappenheimer Bodies Not Reportable 11/10/20 04:28 Sickle Cells Not Reportable 11/10/20 04:28 Target Cells Not Reportable 11/10/20 04:28 Tear Drop Cells Not Reportable 11/10/20 04:28 Ovalocytes Not Reportable 11/10/20 04:28 Helmet Cells Not Reportable 11/10/20 04:28 Lu-Blende Bodies Not Reportable 11/10/20 04:28 [place] Rings Not Reportable 11/10/20 04:28 Randall Cells Not Reportable 11/10/20 04:28 Bite Cells Not Reportable 11/10/20 04:28 Crenated Cell Not Reportable 11/10/20 04:28 Elliptocytes Not Reportable 11/10/20 04:28 Acanthocytes (Spur) Not Reportable 11/10/20 04:28 Rouleaux Not Reportable 11/10/20 04:28 Hemoglobin C Crystals Not Reportable 11/10/20 04:28 Schistocytes Not Reportable 11/10/20 04:28 Malaria parasites Not Reportable 11/10/20 04:28 [place] Bodies Not Reportable 11/10/20 04:28 Hem Pathologist Commnt No 11/10/20 04:28 PT 17.6 Sec. (12.2-14.9) H 11/12/20 04:26 INR 1.40 (0.87-1.13) H 11/12/20 04:26 APTT 162.1 Sec. (24.2-36.6) H* 11/12/20 04:26 Fibrinogen 299 mg/dl (211-480) 11/10/20 15:08 D-Dimer > 31718 ng/mlDDU (0-234) H 11/10/20 04:28 Heparin Anti-Xa Level 0.12 U.I./ml (0.3-0.7) L 11/15/20 08:20 ABG pH 7.427 pH Units (7.350-7.450) 11/14/20 12:15 POC ABG pCO2 33.5 mmHg (32.0-48.0) 11/13/20 04:03 ABG pCO2 31.2 mm Hg 11/14/20 12:15 POC ABG pO2 145.7 mmHg (83-108) H 11/13/20 04:03 ABG pO2 94.7 mm Hg (80.0-90.0) H 11/14/20 12:15 POC ABG HCO3 17.9 11/13/20 04:03 ABG HCO3 20.1 mmol/L (20.0-26.0) 11/14/20 12:15 ABG O2 Saturation 97.6 % (95.0-99.0) 11/14/20 12:15 ABG O2 Content 12.5 (0.0-44) 11/13/20 21:22 POC ABG Base Excess -7.1 11/13/20 04:03 ABG Base Excess -3.7 mmol/L (-2.0-3.0) L 11/14/20 12:15 ABG Hemoglobin 8.3 gm/dl (12.0-16.0) L 11/14/20 12:15 ABG Oxyhemoglobin 97.8 (94-98) 11/13/20 04:03 ABG Carboxyhemoglobin 0.8 % (0.0-5.0) 11/14/20 12:15 ABG Methemoglobin 0.3 % (0.0-1.5) 11/14/20 12:15 ABG Sodium 135.3 mmol/L (136.0-145.0) L 11/13/20 04:03 ABG Potassium 3.7 mmol/L (3.40-4.50) 11/13/20 04:03 ABG Chloride 113.0 mmol/L (98-107) H 11/13/20 04:03 ABG Glucose 108 mg/dL (65-95) H 11/13/20 04:03 Oxyhemoglobin 96.5 % (95.0-99.0) 11/14/20 12:15 Carboxyhemoglobin 0.7 (0.5-1.5) 11/13/20 04:03 FiO2 25 % 11/14/20 12:15 FiO2 % 40.0 11/13/20 04:03 Sodium 141 mmol/L (137-145) 11/15/20 02:46 Potassium 3.5 mmol/L (3.6-5.0) L 11/15/20 02:46 Chloride 106.4 mmol/L (98-107) 11/15/20 02:46 Carbon Dioxide 17 mmol/L (22-30) L 11/15/20 02:46 Anion Gap 21 mmol/L 11/15/20 02:46 BUN 22 mg/dL (7-17) H 11/15/20 02:46 Creatinine 1.7 mg/dL (0.6-1.2) H 11/15/20 02:46 Estimated GFR 35 ml/min 11/15/20 02:46 BUN/Creatinine Ratio 13 % 11/15/20 02:46 Glucose 82 mg/dL (65-100) 11/15/20 02:46 POC Glucose 107 mg/dL (70-105) H 11/15/20 06:36 Lactic Acid 1.20 mmol/L (0.7-2.0) 11/11/20 23:20 Calcium 8.2 mg/dL (8.4-10.2) L 11/15/20 02:46 Phosphorus 3.40 mg/dL (2.5-4.5) D 11/15/20 02:46 Magnesium 2.10 mg/dL (1.7-2.3) 11/15/20 02:46 Total Bilirubin 0.50 mg/dL (0.1-1.2) 11/14/20 Unknown Direct Bilirubin < 0.2 mg/dL (0-0.2) 11/09/20 17:24 Indirect Bilirubin 0.1 mg/dL 11/09/20 17:24 AST 34 units/L (5-40) 11/14/20 Unknown ALT 88 units/L (7-56) H 11/14/20 Unknown Alkaline Phosphatase 110 units/L (35-129) 11/14/20 Unknown Lactate Dehydrogenase 1637 units/L (91-180) H 11/10/20 04:28 Total Creatine Kinase 449 units/L (30-135) H 11/09/20 23:05 CK-MB (CK-2) 18.4 ng/mL (0.0-4.0) H 11/09/20 23:05 CK-MB (CK-2) Rel Index 4.0 (0-4) 11/09/20 23:05 Troponin T 0.873 ng/mL (0.00-0.029) H* D 11/09/20 23:05 C-Reactive Protein 9.40 mg/dL (0.00-1.30) H 11/14/20 14:50 NT-Pro-B Natriuret Pep 1169 pg/mL (0-900) H 11/09/20 17:24 Total Protein 6.0 g/dL (6.3-8.2) L 11/14/20 Unknown Albumin 2.7 g/dL (3.9-5) L 11/14/20 Unknown Albumin/Globulin Ratio 0.8 % 11/14/20 Unknown Triglycerides 163 mg/dL (2-149) H 11/09/20 17:24 Cholesterol 118 mg/dL (50-199) 11/09/20 17:24 LDL Cholesterol Direct 72 mg/dL (50-130) 11/09/20 17:24 HDL Cholesterol 29 mg/dL (40-59) L 11/09/20 17:24 Cholesterol/HDL Ratio 4.06 % 11/09/20 17:24 Procalcitonin 9.69 ng/mL (<0.15) 11/10/20 04:28 Arterial Blood Glucose 108 mg/dL (65-95) H 11/13/20 04:03 Arterial Blood Ionized Calcium 4.3 mg/dL (4.6-5.3) L 11/13/20 04:03 Urine Color Straw (Yellow) 11/09/20 19:07 Urine Turbidity Clear (Clear) 11/09/20 19:07 Urine pH 7.0 (5.0-7.0) 11/09/20 19:07 Ur Specific [place] 1.003 (1.003-1.030) 11/09/20 19:07 Urine Protein <15 mg/dl mg/dL (Negative) 11/09/20 19:07 Urine Glucose (UA) Neg mg/dL (Negative) 11/09/20 19:07 Urine Ketones Neg mg/dL (Negative) 11/09/20 19:07 Urine Blood Mod (Negative) 11/09/20 19:07 Urine Nitrite Neg (Negative) 11/09/20 19:07 Urine Bilirubin Neg (Negative) 11/09/20 19:07 Urine Urobilinogen < 2.0 mg/dL (<2.0) 11/09/20 19:07 Ur Leukocyte Esterase Neg (Negative) 11/09/20 19:07 Urine WBC (Auto) 2.0 /HPF (0.0-6.0) 11/09/20 19:07 Urine RBC (Auto) 2.0 /HPF (0.0-6.0) 11/09/20 19:07 U Epithel Cells (Auto) 1.0 /HPF (0-13.0) 11/09/20 19:07 Urine Bacteria (Auto) 1+ /HPF (Negative) 11/09/20 19:07 Urine Creatinine 80.9 mg/dL (0.1-20.0) H 11/10/20 11:06 Urine Sodium 48 mmol/L 11/10/20 11:06 Urine Chloride 38.8 mmolL (110-250) L 11/10/20 11:06 Urine Opiates Screen Negative 11/09/20 19:07 Urine Methadone Screen Negative 11/09/20 19:07 Ur Barbiturates Screen Negative 11/09/20 19:07 Ur Phencyclidine Scrn Negative 11/09/20 19:07 Ur Amphetamines Screen Negative 11/09/20 19:07 U Benzodiazepines Scrn Negative 11/09/20 19:07 Urine Cocaine Screen Negative 11/09/20 19:07 U Marijuana (THC) Screen Negative 11/09/20 19:07 Drugs of Abuse Note Disclamer 11/09/20 19:07 Coronavirus (PCR) Negative (Negative) 11/10/20 Unknown Hepatitis A IgM Ab Nonreactive (NonReactive) 11/12/20 12:34 Hepatitis A Ab Total Nonreactive (Nonreactive) 11/12/20 12:34 Hep Bs Antigen Nonreactive (Negative) 11/12/20 12:34 Hepatitis C Antibody Nonreactive (NonReactive) 11/12/20 12:34 Blood Type O POSITIVE 11/09/20 17:24 Antibody Screen Negative 11/09/20 17:24 Crossmatch See Detail 11/09/20 17:24 Microbiology: Microbiology 11/09/20 23:05 Peripheral/Venous Blood Culture - Final NO GROWTH AFTER 5 DAYS 11/09/20 22:59 Peripheral/Venous Blood Culture - Final NO GROWTH AFTER 5 DAYS 11/12/20 08:30 Tracheal Aspirate Sputum Culture - Final Methicillin Resist S. Aureus Gonsalves/IV: Voiding Method Indwelling Catheter Active Medications - Current Medications Current Medications: Generic Name Dose Route Start Last Admin Trade Name Freq PRN Reason Stop Dose Admin Acetaminophen 650 mg 11/09/20 23:07 11/15/20 00:43 Acetaminophen 650 Mg Rect Supp MO 650 mg Q6H PRN Administration Pain MILD(1-3)/Fever >100.5/REYES Acetaminophen 650 mg 11/09/20 23:59 Acetaminophen 325 Mg Tab PO Q6H PRN Pain, Mild (1-3) Hydrocodone Bitart/Acetaminophen 2 each 11/09/20 23:59 Hydrocodone/Acetaminophen 5-325 Mg Tab PO Q6H PRN Pain, Moderate (4-6) Dextrose 50 ml 11/11/20 11:10 Dextrose 50% In Water (25gm) 50 Ml Syringe IV Q30MIN PRN Hypoglycemia Protocol Hydralazine HCl 10 mg 11/10/20 16:49 11/15/20 06:42 Hydralazine 20 Mg/1 Ml Inj IV 10 mg Q6H PRN Administration Blood Pressure Hydrophilic Ointment 1 applic 11/09/20 17:08 Lip Therapy Vaseline TP Q2H PRN Dry Lips NORepinephrine/NS 8 MG-250 ML 8 mg in 250 mls @ 3.75 mls/hr 11/09/20 18:00 11/12/20 23:59 Norepinephrine/Ns 8 Mg-250 Ml (Double Conc) IV 0 mcg/min TITRATE MELONY 0 mls/hr Titration Protocol 2 MCG/MIN Heparin Sodium/Sodium Chloride 25,000 unit in 500 mls @ 24 mls/hr 11/10/20 12:00 11/14/20 18:37 Heparin/ 0.45% Nacl-25,000 Unit/500 Ml IV 900 units/hr TITR MELONY 18 mls/hr Titration Protocol 1,200 UNITS/HR Linezolid 600 mg in 300 mls @ 300 mls/hr 11/14/20 14:00 11/15/20 03:12 Zyvox 600mg/300ml IV 11/22/20 02:59 300 mls/hr Q12H MELONY Administration Protocol Insulin Human Regular 0 units 11/15/20 11:30 Insulin Regular, Human 100 Units/1 Ml SUB-Q ACHS MELONY Protocol Magnesium Hydroxide 30 ml 11/09/20 23:07 Magnesium Hydroxide (Mom) Oral Liqd Udc PO Q4H PRN Constipation Metoprolol Tartrate 12.5 mg 11/14/20 10:00 11/14/20 21:22 Metoprolol Tartrate 25 Mg Tab PO 12.5 mg BID MELONY Administration Multi-Ingred Cream/Lotion/Oil/Oint 1 applic 11/09/20 17:08 Mineral Oil/Petrolatum, White Ophth Oint 3.5 Gm OU Q4H PRN Dry Eye(s) Ondansetron HCl 4 mg 11/09/20 23:07 Ondansetron 4 Mg/2 Ml Inj IV Q8H PRN Nausea And Vomiting Pantoprazole Sodium 40 mg 11/11/20 22:00 11/14/20 21:22 Pantoprazole 40 Mg Inj IV 40 mg BID MELONY Administration Senna/Docusate Sodium 1 tab 11/09/20 22:00 11/14/20 21:23 Sennosides/Docusate Sodium 8.6/50 Mg Tab FEEDTUBE 1 tab BID MELONY Administration Sodium Chloride 10 ml 11/10/20 10:00 11/14/20 21:23 Sodium Chloride 0.9% 10 Ml Flush Syringe IV 10 ml BID MELONY Administration Sodium Chloride 10 ml 11/09/20 23:07 Sodium Chloride 0.9% 10 Ml Flush Syringe IV PRN PRN LINE FLUSH Nutrition/Malnutrition Assess - Dietary Evaluation Nutrition/Malnutrition Findings: Nutrition Notes Start: 11/10/20 09:17 Freq: Status: Active Protocol: Document 11/14/20 13:58 GB (Rec: 11/14/20 14:07 GB [id number]) Nutrition Notes Initial or Follow up Reassessment Current Diagnosis CKD(stage I-IV),Hypertension Other Pertinent Diagnosis pneu, cardiopulmonary arrest, SIRS, acute diastolic heart failure Current Diet NPO, TF ordered Labs/Tests 11/14: K 3.3, BUN 22, creatinine 1.7, Ca 8.2, P 1.7, Mg 1.4, ALT 88 Pertinent Medications Fentanyl, Norepinephrine/Ns8 Mg250, heparin/NaCl, linezolid , KPhosphate/NaCl Height 5 ft 6 in Weight 80.966 kg Stacy Body Weight (kg) 59.09 BMI 28.8 Weight change and time frame Stable for past week. Weight Status Overweight Subjective/Other Information 11/13: per chart: TF stopped, pt placed on LIS 11/14: Per Mechanical Vent note : extubated, now on nasal cannula 11/14: OGT changed to NGT, NG placement confirmed 11/14: per MD note: suspected calcified gallbladder Percent of energy/protein needs met: TF at goal meets 100% EEN. Burn Absent Trauma Absent GI Symptoms Other Difficulty In Swallowing Food Allergy No Skin Integrity/Comment no complications at this time. Current % PO Other Minimum of two criteria No #1 Nutrition Diagnosis Inadequate oral intake Comments: 11/11: vent continues, TF orders entered 11/14: extubated, OGT changed to NGT, TF orders continue Etiology ARF As Evidenced by Signs and Symptoms pt on vent and unable to consume PO Diagnosis Progress(for reassessment Improved documentation) Is patient on ventilator? No Is Patient Ambulatory and/or Out of Bed No REE-([facility]-confined to bed) 1532.880 Kcal/Kg value to use for calculation 22 Approximate Energy Requirements Using 1781 kcal/Kg Calculation Used for Recommendations Kcal/kg Additional Notes Protein: (1-1.2g/kg @ 81kg) 81 -97g Fluid: 1 ml/kcal or per MD Nutrition Intervention Change Diet Order: Advance as able Nutrition Support: TF: Vital AF 1.2 at 50 ml/hr Kcal 1,440 Protein (gm) 90 Fluid (mL) 973 Goal #1 Diet advancement or TF start 11/11: TF orders entered Vital 1.2 AF @ 50ml/hr, flush 100ml/ 4hr 11/14: OGT changed to NGT, TF orders continue. Pt extubated Goal #2 TF at goal rate 50ml/hr and tolerated Follow-Up By: 11/19/20 Additional Comments f/u: Diet advanced, TF tolerance, at goal of 50ml/hr
[2020-11-15] MEDS ORDERED: POTASSIUM CHLORIDE ER 10 MEQ TAB PO NR (09:30)
--- NOTE | 2020-11-15 10:08 | Gastroenterology Progress Note ---
Assessment and Plan hgb stable, no overt bleeding, patient remains on heparin drip; therefore no role at this time for endoscopic intervention. Continue PPI Regarding elevated liver enzymes no repeat today but strongly suspect due to her severe illness. To be thorough I checked hepatitis viral serologies which were negative. Continue to trend Therefore GI will sign off, please call us back if there is overt bleeding with drop in hgb - Patient Problems (1) Upper GI hemorrhage Current Visit: Yes Status: Acute (2) Atrial fibrillation Current Visit: Yes Status: Acute Qualifiers: Atrial fibrillation type: persistent (not longstanding) Qualified Code(s): I48.19 - Other persistent atrial fibrillation; I48.1 - Persistent atrial fibrillation (3) Cardiopulmonary arrest Current Visit: Yes Status: Resolved (4) Transaminitis Current Visit: Yes Status: Acute Subjective Date of service: 11/15/20 Principal diagnosis: GI bleed Interval history: Patient is now extubated Spoke with nurse, brown stool overnight no overt bleeding Repeat hemoglobin this a.m. improved compared to yesterday Objective - Constitutional Vitals: Temp Pulse Resp BP Pulse Ox 99.8 F H 107 H 24 135/62 95 11/15/20 07:57 11/15/20 09:00 11/15/20 09:00 11/15/20 09:00 11/15/20 09:00 General appearance: no acute distress - EENT Eyes: EOM intact - Gastrointestinal General gastrointestinal: Present: soft, non-tender - Neurologic Neurological: other (lethargic) - Labs CBC & Chem 7: 11/15/20 02:46 11/15/20 02:46 Labs: Laboratory Results - last 24 hr 11/12/20 11/14/20 11/14/20 12:34 11:34 12:15 WBC RBC Hgb Hct MCV MCH MCHC RDW Plt Count Heparin Anti-Xa Level ABG pH 7.427 ABG pCO2 31.2 ABG pO2 94.7 H ABG HCO3 20.1 ABG O2 Saturation 97.6 ABG Base Excess -3.7 L ABG Hemoglobin 8.3 L ABG Carboxyhemoglobin 0.8 ABG Methemoglobin 0.3 Oxyhemoglobin 96.5 FiO2 25 Sodium Potassium Chloride Carbon Dioxide Anion Gap BUN Creatinine Estimated GFR BUN/Creatinine Ratio Glucose POC Glucose 94 Calcium Phosphorus Magnesium C-Reactive Protein Hepatitis A Ab Total Nonreactive 10/08/2811/14/20 11/14/20 14:50 14:50 17:53 WBC RBC Hgb Hct MCV MCH MCHC RDW Plt Count Heparin Anti-Xa Level 0.10 L ABG pH ABG pCO2 ABG pO2 ABG HCO3 ABG O2 Saturation ABG Base Excess ABG Hemoglobin ABG Carboxyhemoglobin ABG Methemoglobin Oxyhemoglobin FiO2 Sodium Potassium Chloride Carbon Dioxide Anion Gap BUN Creatinine Estimated GFR BUN/Creatinine Ratio Glucose POC Glucose 113 H Calcium Phosphorus Magnesium C-Reactive Protein 9.40 H Hepatitis A Ab Total 11/15/20 11/15/20 11/15/20 00:10 00:30 02:46 WBC 15.2 H RBC 2.83 L Hgb 8.7 L Hct 25.6 L MCV 91 MCH 31 MCHC 34 RDW 15.0 Plt Count 179 Heparin Anti-Xa Level 0.18 L ABG pH ABG pCO2 ABG pO2 ABG HCO3 ABG O2 Saturation ABG Base Excess ABG Hemoglobin ABG Carboxyhemoglobin ABG Methemoglobin Oxyhemoglobin FiO2 Sodium Potassium Chloride Carbon Dioxide Anion Gap BUN Creatinine Estimated GFR BUN/Creatinine Ratio Glucose POC Glucose 100 Calcium Phosphorus Magnesium C-Reactive Protein Hepatitis A Ab Total 11/15/20 11/15/20 11/15/20 02:46 06:36 08:20 WBC RBC Hgb Hct MCV MCH MCHC RDW Plt Count Heparin Anti-Xa Level 0.12 L ABG pH ABG pCO2 ABG pO2 ABG HCO3 ABG O2 Saturation ABG Base Excess ABG Hemoglobin ABG Carboxyhemoglobin ABG Methemoglobin Oxyhemoglobin FiO2 Sodium 141 Potassium 3.5 L Chloride 106.4 Carbon Dioxide 17 L Anion Gap 21 BUN 22 H Creatinine 1.7 H Estimated GFR 35 BUN/Creatinine Ratio 13 Glucose 82 POC Glucose 107 H Calcium 8.2 L Phosphorus 3.40 D Magnesium 2.10 C-Reactive Protein Hepatitis A Ab Total
[2020-11-15] MEDS: METOPROLOL TARTRATE 25 MG TAB PO SCH ×2 (10:10→22:36)
[2020-11-15] MEDS: PANTOPRAZOLE 40 MG INJ IV SCH ×2 (10:10→22:36)
[2020-11-15] MEDS: SENNOSIDES/DOCUSATE SODIUM 8.6/50 MG TAB FEEDTUBE SCH ×2 (10:10→22:37)
[2020-11-15] MEDS: HEPARIN/ 0.45% NACL DRIP 25,000 UNIT/500 ML BAG IV SCH (10:11)
--- NOTE | 2020-11-15 10:43 | Progress Note ---
Assessment and Plan - Patient Problems (1) Acute kidney injury Current Visit: Yes Status: Acute Plan to address problem: Likely pre-renal injury in the setting of acute b/l PE with cor pulmonale and right sided heart failure. Renal function improving, cont gentle IV hydration. Avoid nephrotoxins. Renal US showed no evidence of obstructive uropathy, b/l echogenic kidneys seen. Will follow closely (2) Acute pulmonary embolism with acute cor pulmonale Current Visit: Yes Status: Acute Qualifiers: Pulmonary embolism type: saddle Qualified Code(s): I26.02 - Saddle embolus of pulmonary artery with acute cor pulmonale Plan to address problem: s/p pulmonary angiography and placement of b/l thrombolytics catheter placement by vascular surgery. Follow up further recommendations from cardiology. Unclear etiology of b/l PE. (3) Cardiopulmonary arrest Current Visit: Yes Status: Resolved Plan to address problem: On multiple pressor support. Intubated, sedated. Further recommendations per cardiology. (4) Hypokalemia Current Visit: Yes Status: Acute Plan to address problem: cont IV KCl supplementation to target K > 4 Subjective Date of service: 11/15/20 Principal diagnosis: GI bleed Interval history: Pt is awake, alert in no acute respiratory distress Objective - Vital Signs Vital signs: Vital Signs - 12hr 11/14/20 11/14/20 11/14/20 23:01 23:15 23:25 Temperature Pulse Rate 100 H 104 H 100 H Pulse Rate [ From Monitor] Respiratory 25 H 25 H 14 Rate Blood Pressure 182/84 153/92 153/92 O2 Sat by Pulse 95 93 95 Oximetry 11/14/20 11/14/20 11/14/20 23:26 23:27 23:29 Temperature Pulse Rate 102 H 100 H Pulse Rate [ From Monitor] Respiratory 15 21 Rate Blood Pressure 153/92 153/92 153/92 O2 Sat by Pulse 93 95 Oximetry 11/14/20 11/14/20 11/14/20 23:31 23:33 23:35 Temperature Pulse Rate 100 H 98 H 98 H Pulse Rate [ From Monitor] Respiratory 34 H 29 H 23 Rate Blood Pressure 153/92 153/92 153/92 O2 Sat by Pulse 94 95 94 Oximetry 11/14/20 11/14/20 11/14/20 23:37 23:39 23:41 Temperature Pulse Rate 100 H 100 H 100 H Pulse Rate [ From Monitor] Respiratory 21 22 39 H Rate Blood Pressure 153/92 153/92 153/92 O2 Sat by Pulse 94 94 95 Oximetry 11/14/20 11/14/20 11/14/20 23:43 23:45 23:47 Temperature Pulse Rate 100 H 101 H 102 H Pulse Rate [ From Monitor] Respiratory 39 H 12 20 Rate Blood Pressure 153/92 153/92 153/92 O2 Sat by Pulse 94 94 94 Oximetry 11/14/20 11/14/20 11/14/20 23:49 23:51 23:53 Temperature Pulse Rate 99 H 102 H 100 H Pulse Rate [ From Monitor] Respiratory 32 H 35 H 34 H Rate Blood Pressure 153/92 153/92 153/92 O2 Sat by Pulse 94 94 92 Oximetry 11/14/20 11/14/20 11/14/20 23:55 23:57 23:59 Temperature Pulse Rate 102 H 103 H 103 H Pulse Rate [ From Monitor] Respiratory 26 H 20 13 Rate Blood Pressure 153/92 153/92 153/92 O2 Sat by Pulse 93 94 93 Oximetry 11/15/20 11/15/20 11/15/20 00:00 00:01 00:03 Temperature Pulse Rate 101 H 107 H Pulse Rate [ 99 H From Monitor] Respiratory 13 19 23 Rate Blood Pressure 162/134 162/134 O2 Sat by Pulse 97 94 93 Oximetry 11/15/20 11/15/20 11/15/20 00:05 00:07 00:09 Temperature Pulse Rate 103 H 100 H 99 H Pulse Rate [ From Monitor] Respiratory 28 H 38 H 38 H Rate Blood Pressure 162/134 162/134 162/134 O2 Sat by Pulse 94 94 93 Oximetry 11/15/20 11/15/20 11/15/20 00:11 00:13 00:15 Temperature Pulse Rate 99 H 103 H 102 H Pulse Rate [ From Monitor] Respiratory 39 H 35 H 21 Rate Blood Pressure 162/134 162/134 162/134 O2 Sat by Pulse 93 94 93 Oximetry 11/15/20 11/15/20 11/15/20 00:17 00:19 00:21 Temperature Pulse Rate 102 H 101 H 101 H Pulse Rate [ From Monitor] Respiratory 19 35 H 39 H Rate Blood Pressure 162/134 162/134 162/134 O2 Sat by Pulse 95 93 92 Oximetry 11/15/20 11/15/20 11/15/20 00:23 00:25 00:27 Temperature Pulse Rate 105 H 102 H 101 H Pulse Rate [ From Monitor] Respiratory 30 H 29 H 37 H Rate Blood Pressure 162/134 162/134 162/134 O2 Sat by Pulse 93 92 93 Oximetry 11/15/20 11/15/20 11/15/20 00:29 00:31 00:32 Temperature Pulse Rate 100 H 101 H 103 H Pulse Rate [ From Monitor] Respiratory 36 H 26 H 30 H Rate Blood Pressure 162/134 167/83 167/83 O2 Sat by Pulse 93 94 93 Oximetry 11/15/20 11/15/20 11/15/20 00:33 00:35 00:37 Temperature Pulse Rate 101 H 103 H 106 H Pulse Rate [ From Monitor] Respiratory 29 H 20 18 Rate Blood Pressure 167/83 O2 Sat by Pulse 94 95 94 Oximetry 11/15/20 11/15/20 11/15/20 00:39 00:42 01:00 Temperature Pulse Rate 102 H 102 H Pulse Rate [ From Monitor] Respiratory 15 33 H Rate Blood Pressure 167/73 179/80 O2 Sat by Pulse 96 96 Oximetry 11/15/20 11/15/20 11/15/20 02:01 03:00 04:00 Temperature 98.2 F Pulse Rate 99 H 102 H Pulse Rate [ 99 H From Monitor] Respiratory 36 H 24 13 Rate Blood Pressure 140/69 154/70 O2 Sat by Pulse 96 94 97 Oximetry 11/15/20 11/15/20 11/15/20 04:01 04:17 05:00 Temperature Pulse Rate 102 H 101 H Pulse Rate [ From Monitor] Respiratory 25 H 36 H Rate Blood Pressure 139/65 170/86 O2 Sat by Pulse 93 93 90 Oximetry 11/15/20 11/15/20 11/15/20 06:00 07:00 07:57 Temperature 99.8 F H Pulse Rate 102 H 109 H Pulse Rate [ From Monitor] Respiratory 23 28 H Rate Blood Pressure 163/76 146/73 O2 Sat by Pulse 93 95 Oximetry 11/15/20 11/15/20 11/15/20 08:00 09:00 10:10 Temperature Pulse Rate 107 H 107 H 102 H Pulse Rate [ 111 H From Monitor] Respiratory 32 H 24 Rate Blood Pressure 151/72 135/62 149/70 O2 Sat by Pulse 94 95 Oximetry - General Appearance General appearance: well-developed, well-nourished, appears stated age EENT: ATNC, PERRL, mucous membranes moist Neck: no JVD Respiratory: Present: Clear to Ascultation Cardiology: regular, S1S2 Gastrointestinal: normoactive bowel sounds Integumentary: no rash Neurologic: no focal deficit, alert and oriented x3, strength 5/5, CN 3-12 intact - Lab 11/15/20 02:46 11/15/20 02:46 Most recent lab results ABG pH 7.427 pH Units (7.350-7.450) 11/14/20 12:15 ABG pCO2 31.2 mm Hg 11/14/20 12:15 ABG pO2 94.7 mm Hg (80.0-90.0) H 11/14/20 12:15 ABG HCO3 20.1 mmol/L (20.0-26.0) 11/14/20 12:15 ABG O2 Saturation 97.6 % (95.0-99.0) 11/14/20 12:15 Calcium 8.2 mg/dL (8.4-10.2) L 11/15/20 02:46 Phosphorus 3.40 mg/dL (2.5-4.5) D 11/15/20 02:46 Magnesium 2.10 mg/dL (1.7-2.3) 11/15/20 02:46 Urine Creatinine 80.9 mg/dL (0.1-20.0) H 11/10/20 11:06 Urine Sodium 48 mmol/L 11/10/20 11:06 Medications & Allergies - Medications Allergies/Adverse Reactions: Allergies No Known Allergies Allergy (Verified 11/09/20 17:19) Active Medications: Generic Name Dose Route Start Last Admin Trade Name Freq PRN Reason Stop Dose Admin Acetaminophen 650 mg 11/09/20 23:07 11/15/20 00:43 Acetaminophen 650 Mg Rect Supp LA 650 mg Q6H PRN Administration Pain MILD(1-3)/Fever >100.5/REYES Acetaminophen 650 mg 11/09/20 23:59 Acetaminophen 325 Mg Tab PO Q6H PRN Pain, Mild (1-3) Hydrocodone Bitart/Acetaminophen 2 each 11/09/20 23:59 Hydrocodone/Acetaminophen 5-325 Mg Tab PO Q6H PRN Pain, Moderate (4-6) Dextrose 50 ml 11/11/20 11:10 Dextrose 50% In Water (25gm) 50 Ml Syringe IV Q30MIN PRN Hypoglycemia Protocol Hydralazine HCl 10 mg 11/10/20 16:49 11/15/20 06:42 Hydralazine 20 Mg/1 Ml Inj IV 10 mg Q6H PRN Administration Blood Pressure Hydrophilic Ointment 1 applic 11/09/20 17:08 Lip Therapy Vaseline TP Q2H PRN Dry Lips NORepinephrine/NS 8 MG-250 ML 8 mg in 250 mls @ 3.75 mls/hr 11/09/20 18:00 11/12/20 23:59 Norepinephrine/Ns 8 Mg-250 Ml (Double Conc) IV 0 mcg/min TITRATE MELONY 0 mls/hr Titration Protocol 2 MCG/MIN Heparin Sodium/Sodium Chloride 25,000 unit in 500 mls @ 24 mls/hr 11/10/20 1 2:00 11/15/20 10:11 Heparin/ 0.45% Nacl-25,000 Unit/500 Ml IV 900 units/hr TITR MELONY 18 mls/hr Administration Protocol 1,200 UNITS/HR Linezolid 600 mg in 300 mls @ 300 mls/hr 11/14/20 14:00 11/15/20 03:12 Zyvox 600mg/300ml IV 11/22/20 02:59 300 mls/hr Q12H MELONY Administration Protocol Insulin Human Regular 0 units 11/15/20 11:30 Insulin Regular, Human 100 Units/1 Ml SUB-Q ACHS MELONY Protocol Magnesium Hydroxide 30 ml 11/09/20 23:07 Magnesium Hydroxide (Mom) Oral Liqd Udc PO Q4H PRN Constipation Metoprolol Tartrate 12.5 mg 11/14/20 10:00 11/15/20 10:10 Metoprolol Tartrate 25 Mg Tab PO 12.5 mg BID MELONY Administration Multi-Ingred Cream/Lotion/Oil/Oint 1 applic 11/09/20 17:08 Mineral Oil/Petrolatum, White Ophth Oint 3.5 Gm OU Q4H PRN Dry Eye(s) Ondansetron HCl 4 mg 11/09/20 23:07 Ondansetron 4 Mg/2 Ml Inj IV Q8H PRN Nausea And Vomiting Pantoprazole Sodium 40 mg 11/11/20 22:00 11/15/20 10:10 Pantoprazole 40 Mg Inj IV 40 mg BID MELONY Administration Potassium Chloride 30 meq 11/15/20 09:30 11/15/20 10:09 Potassium Chloride Er 10 Meq Tab PO 11/15/20 12:30 30 meq ONCE@0930 NR Administration Senna/Docusate Sodium 1 tab 11/09/20 22:00 11/15/20 10:10 Sennosides/Docusate Sodium 8.6/50 Mg Tab FEEDTUBE 1 tab BID MELONY Administration Sodium Chloride 10 ml 11/10/20 10:00 11/15/20 10:11 Sodium Chloride 0.9% 10 Ml Flush Syringe IV 10 ml BID MELONY Administration Sodium Chloride 10 ml 11/09/20 23:07 Sodium Chloride 0.9% 10 Ml Flush Syringe IV PRN PRN LINE FLUSH
--- NOTE | 2020-11-15 11:55 | Progress Note ---
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 #Bilateral PE: s/p EKOS #Cardiac arrest #TYLER: renally dose medications. Recs: -Continue linezolid 600mg q12h to complete 8 days. -Follow up blood cultures. Thank you for the consult, we will continue to follow. Aguilar Ng MD [facility] ([facility]) O: [phone] F: [phone] Subjective Date of service: 11/15/20 Principal diagnosis: GI bleed Interval history: Afebrile, stable elevated white count. On room air. Objective - Exam Narrative Exam: Physical Exam: Constitutional: Alert, cooperative. Follows commands, tracks. Head, Ears, Nose: Normocephalic, atraumatic. External ears, nose normal Eyes: Conjunctivae/corneas clear. No icterus. No ptosis. Neck: Supple, no meningeal signs Oral: dentition fair, no thrush Cardiovascular: S1, S2 normal. Respiratory: Good air entry, clear to auscultation bilaterally GI: Soft, non-tender; bowel sounds normal. No peritoneal signs. Musculoskeletal: No pedal edema, no cyanosis. Skin: No rash or abscess Hem/Lymphatic: No palpable cervical or supraclavicular nodes. Psych: No agitation Neurological: No agitation - Constitutional Vitals: Vital Signs Temp Pulse Resp BP Pulse Ox 99.8 F H 99 H 33 H 151/62 95 11/15/20 07:57 11/15/20 11:01 11/15/20 11:01 11/15/20 11:01 11/15/20 11:01 Temperature -Last 24 Hours Temperature 99.8 F Temperature 98.2 F Temperature 99.5 F Temperature 98.5 F Temperature 98.8 F - Labs CBC & Chem 7: 11/15/20 02:46 11/15/20 02:46 Labs: Abnormal lab results 11/14/20 11/14/20 11/14/20 Range/Units 12:15 14:50 14:50 WBC (4.5-11.0) K/mm3 RBC (3.65-5.03) M/mm3 Hgb (10.1-14.3) gm/dl Hct (30.3-42.9) % Heparin Anti-Xa Level 0.10 L (0.3-0.7) U.I./ml ABG pO2 94.7 H (80.0-90.0) mm Hg ABG Base Excess -3.7 L (-2.0-3.0) mmol/L ABG Hemoglobin 8.3 L (12.0-16.0) gm/dl Potassium (3.6-5.0) mmol/L Carbon Dioxide (22-30) mmol/L BUN (7-17) mg/dL Creatinine (0.6-1.2) mg/dL POC Glucose (70-105) mg/dL Calcium (8.4-10.2) mg/dL C-Reactive Protein 9.40 H (0.00-1.30) mg/dL 11/14/20 11/15/20 11/15/20 Range/Units 17:53 00:10 02:46 WBC 15.2 H (4.5-11.0) K/mm3 RBC 2.83 L (3.65-5.03) M/mm3 Hgb 8.7 L (10.1-14.3) gm/dl Hct 25.6 L (30.3-42.9) % Heparin Anti-Xa Level 0.18 L (0.3-0.7) U.I./ml ABG pO2 (80.0-90.0) mm Hg ABG Base Excess (-2.0-3.0) mmol/L ABG Hemoglobin (12.0-16.0) gm/dl Potassium (3.6-5.0) mmol/L Carbon Dioxide (22-30) mmol/L BUN (7-17) mg/dL Creatinine (0.6-1.2) mg/dL POC Glucose 113 H (70-105) mg/dL Calcium (8.4-10.2) mg/dL C-Reactive Protein (0.00-1.30) mg/dL 11/15/20 11/15/20 11/15/20 Range/Units 02:46 06:36 08:20 WBC (4.5-11.0) K/mm3 RBC (3.65-5.03) M/mm3 Hgb (10.1-14.3) gm/dl Hct (30.3-42.9) % Heparin Anti-Xa Level 0.12 L (0.3-0.7) U.I./ml ABG pO2 (80.0-90.0) mm Hg ABG Base Excess (-2.0-3.0) mmol/L ABG Hemoglobin (12.0-16.0) gm/dl Potassium 3.5 L (3.6-5.0) mmol/L Carbon Dioxide 17 L (22-30) mmol/L BUN 22 H (7-17) mg/dL Creatinine 1.7 H (0.6-1.2) mg/dL POC Glucose 107 H (70-105) mg/dL Calcium 8.2 L (8.4-10.2) mg/dL C-Reactive Protein (0.00-1.30) mg/dL 11/15/20 Range/Units 11:35 WBC (4.5-11.0) K/mm3 RBC (3.65-5.03) M/mm3 Hgb (10.1-14.3) gm/dl Hct (30.3-42.9) % Heparin Anti-Xa Level (0.3-0.7) U.I./ml ABG pO2 (80.0-90.0) mm Hg ABG Base Excess (-2.0-3.0) mmol/L ABG Hemoglobin (12.0-16.0) gm/dl Potassium (3.6-5.0) mmol/L Carbon Dioxide (22-30) mmol/L BUN (7-17) mg/dL Creatinine (0.6-1.2) mg/dL POC Glucose 145 H (70-105) mg/dL Calcium (8.4-10.2) mg/dL C-Reactive Protein (0.00-1.30) mg/dL
--- NOTE | 2020-11-15 13:43 | Progress Note ---
Assessment and Plan 84-year-old female with hypertension obesity suffered a cardiac arrest secondary to large pulmonary embolism with RV dysfunction and failure with a non-ST elevation CT hypotension and acute renal sufficiency Acute respiratory failure with hypoxia * Pulmonology is following Non-STEMI (non-ST elevated myocardial infarction) Acute pulmonary embolism with acute cor pulmonale Atrial fibrillation * Anticoagulated with Heparin gtt * Patient currently sinus rhythm * Echo 11/10/2020-EF 50 to 55%, right ventricular systolic function is normal, right ventricle is mildly dilated, left atrium not well visualized, mild mitral regurgitation, moderate pulmonary hypertension Acute kidney injury * Nephrology currently following Anemia * GI following Plan: Due to hypertension increase metoprolol 25mg PO BID. Will continue to follow Patient seen in conjunction with Dr. Gray who agrees with this plan of care. 30min of critical care time spent in the coordination of care for this patient - Patient Problems (1) Acute kidney injury Current Visit: Yes Status: Acute (2) Acute pulmonary embolism with acute cor pulmonale Current Visit: Yes Status: Acute Qualifiers: Pulmonary embolism type: saddle Qualified Code(s): I26.02 - Saddle embolus of pulmonary artery with acute cor pulmonale (3) Acute respiratory failure with hypoxia Current Visit: Yes Status: Acute (4) Atrial fibrillation Current Visit: Yes Status: Acute Qualifiers: Atrial fibrillation type: persistent (not longstanding) Qualified Code(s): I48.19 - Other persistent atrial fibrillation; I48.1 - Persistent atrial fibrillation (5) Cardiopulmonary arrest Current Visit: Yes Status: Resolved (6) Hypokalemia Current Visit: Yes Status: Acute (7) Non-STEMI (non-ST elevated myocardial infarction) Current Visit: Yes Status: Acute (8) RBBB Current Visit: Yes Status: Chronic (9) Upper GI hemorrhage Current Visit: Yes Status: Acute Subjective Date of service: 11/15/20 Principal diagnosis: GI bleed Interval history: Patient sitting in bed. Sinus tach 100-110s on monitor Objective Vital Signs Temp Pulse Pulse Resp BP Pulse Ox 11/15/20 12:00 100.3 F H 94 H 91 H 14 153/61 96 11/15/20 11:01 99 H 33 H 151/62 95 11/15/20 10:10 102 H 149/70 11/15/20 10:00 104 H 20 149/70 96 11/15/20 09:00 107 H 24 135/62 95 11/15/20 08:00 107 H 111 H 32 H 151/72 94 11/15/20 07:57 99.8 F H 11/15/20 07:00 109 H 28 H 146/73 95 11/15/20 06:00 102 H 23 163/76 93 11/15/20 05:00 101 H 36 H 170/86 90 11/15/20 04:17 93 11/15/20 04:01 102 H 25 H 139/65 93 11/15/20 04:00 98.2 F 99 H 13 97 11/15/20 03:00 102 H 24 154/70 94 11/15/20 02:01 99 H 36 H 140/69 96 11/15/20 01:00 102 H 33 H 179/80 96 11/15/20 00:42 167/73 11/15/20 00:39 102 H 15 96 11/15/20 00:37 106 H 18 94 11/15/20 00:35 103 H 20 95 11/15/20 00:33 101 H 29 H 167/83 94 11/15/20 00:32 103 H 30 H 167/83 93 11/15/20 00:31 101 H 26 H 167/83 94 11/15/20 00:29 100 H 36 H 162/134 93 11/15/20 00:27 101 H 37 H 162/134 93 11/15/20 00:25 102 H 29 H 162/134 92 11/15/20 00:23 105 H 30 H 162/134 93 11/15/20 00:21 101 H 39 H 162/134 92 11/15/20 00:19 101 H 35 H 162/134 93 11/15/20 00:17 102 H 19 162/134 95 11/15/20 00:15 102 H 21 162/134 93 11/15/20 00:13 103 H 35 H 162/134 94 11/15/20 00:11 99 H 39 H 162/134 93 11/15/20 00:09 99 H 38 H 162/134 93 11/15/20 00:07 100 H 38 H 162/134 94 11/15/20 00:05 103 H 28 H 162/134 94 11/15/20 00:03 107 H 23 162/134 93 11/15/20 00:01 101 H 19 162/134 94 11/15/20 00:00 99 H 13 97 11/14/20 23:59 103 H 13 153/92 93 11/14/20 23:57 103 H 20 153/92 94 11/14/20 23:55 102 H 26 H 153/92 93 11/14/20 23:53 100 H 34 H 153/92 92 11/14/20 23:51 102 H 35 H 153/92 94 11/14/20 23:49 99 H 32 H 153/92 94 11/14/20 23:47 102 H 20 153/92 94 11/14/20 23:45 101 H 12 153/92 94 11/14/20 23:43 100 H 39 H 153/92 94 11/14/20 23:41 100 H 39 H 153/92 95 11/14/20 23:39 100 H 22 153/92 94 11/14/20 23:37 100 H 21 153/92 94 11/14/20 23:35 98 H 23 153/92 94 11/14/20 23:33 98 H 29 H 153/92 95 11/14/20 23:31 100 H 34 H 153/92 94 11/14/20 23:29 100 H 21 153/92 95 11/14/20 23:27 102 H 15 153/92 93 11/14/20 23:26 153/92 11/14/20 23:25 100 H 14 153/92 95 11/14/20 23:15 104 H 25 H 153/92 93 11/14/20 23:01 100 H 25 H 182/84 95 11/14/20 22:00 97 H 19 141/59 93 11/14/20 21:22 100 H 151/67 11/14/20 21:00 102 H 29 H 118/46 95 11/14/20 20:01 103 H 30 H 124/43 95 11/14/20 20:00 99.5 F 99 H 13 97 11/14/20 19:00 101 H 31 H 153/74 95 11/14/20 18:00 99 H 24 153/75 96 11/14/20 17:45 100 H 23 160/81 96 11/14/20 17:30 102 H 17 151/74 96 11/14/20 17:15 100 H 24 155/78 96 11/14/20 17:00 97 H 20 132/72 96 11/14/20 16:45 102 H 22 142/72 97 11/14/20 16:30 97 H 23 155/68 96 11/14/20 16:15 99 H 22 151/67 98 11/14/20 16:00 99 H 99 H 14 137/67 97 11/14/20 15:54 98.5 F 11/14/20 15:45 95 H 24 147/63 97 11/14/20 15:30 92 H 23 151/66 97 11/14/20 15:18 90 163/72 11/14/20 15:15 88 16 163/72 98 11/14/20 15:01 83 17 163/72 98 11/14/20 14:45 81 23 179/84 98 11/14/20 14:31 79 23 179/84 98 11/14/20 14:15 84 18 179/84 99 11/14/20 14:00 80 21 179/84 98 11/14/20 13:45 86 20 164/80 98 - Physical Examination General: Appears Well HEENT: Positive: EOMI, Normocephaly Neck: Positive: neck supple, trachea midline Cardiac: Positive: Regular Rhythm, Tachycardia Lungs: Positive: Decreased Breath Sounds Neuro: Positive: Grossly Intact Abdomen: Positive: Soft. Negative: Tender Skin: Negative: Rash Musculoskeletal: No Fluid Collection Extremities: Present: lower extr. pulses. Absent: edema - Labs and Meds CBC 11/15/20 Range/Units 02:46 WBC 15.2 H (4.5-11.0) K/mm3 RBC 2.83 L (3.65-5.03) M/mm3 Hgb 8.7 L (10.1-14.3) gm/dl Hct 25.6 L (30.3-42.9) % Plt Count 179 (140-440) K/mm3 Comprehensive Metabolic Panel 11/15/20 Range/Units 02:46 Sodium 141 (137-145) mmol/L Potassium 3.5 L (3.6-5.0) mmol/L Chloride 106.4 (98-107) mmol/L Carbon Dioxide 17 L (22-30) mmol/L BUN 22 H (7-17) mg/dL Creatinine 1.7 H (0.6-1.2) mg/dL Glucose 82 (65-100) mg/dL Calcium 8.2 L (8.4-10.2) mg/dL - Imaging and Cardiology EKG: report reviewed Echo: report reviewed (11/10/2020 - EF 50-55%, normal RVSF, RV mildly dilated, mild MR, mild TR, mod pulm HTN w/RVSP of 51mmHg) - Telemetry EKG Rhythm: Sinus Tachycardia - EKG Sinus rhythms and dysrhythmias: sinus tachycardia AV and intraventricular conduction: right bundle branch block - Allied health notes Allied health notes reviewed: nursing
--- NOTE | 2020-11-15 13:46 | Progress Note ---
Assessment and Plan Acute hypoxemic respiratory failure Acute pulmonary embolism bilaterally Bilateral pulmonary infiltrates/pneumonia Cardiac arrest with ROSC [id number] kidney injury Oropharyngeal dysphagia HTN Shock (cardiogenic and hypovolemic) Chronic right bundle-branch block Arthritis Thrombocytopenia Coagulopathy Hypokalemia Severe metabolic acidosis Lactic acidosis Elevated serum transaminases Possible NSTEMI - complete Zyvox 600 mg IV q12h per ID recommendations (8 days) - continue aspiration precautions - continue care as below otherwise; - continue full anticoagulation for VTE - continue to trend H&H - continue to wean supplemental oxygen for target O2 sat's > 90% acutely - continue bronchodilators with pulmonary hygiene per RT - wean per pulmonary driven protocols otherwise - continue accuchecks with glycemic control per SSI for target blood glucose of < 180 mg/dL; avoid hypoglycemia - avoid nephrotoxins, renally dose all medications - continue to avoid benzodiazepine's, reduce the possibility of delirium - AB's per ID rec's - prn analgesia per pain score - Maintenance of sleep-wake cycle, avoid delirium - G.I. & VTE prophylaxis - PT/OT/ROM exercises - supportive transfusions for serum Hb < 7.0 - continue mobility protocols for pressure ulcer prophylaxis - Monitor hemodynamics closely - continue other care per attending / other consultants - discharge planning ongoing concurrently COVID SPECIFIC INTERVENTIONS - COVID-19 test negative .... Re-evaluate in am & prn CONDITION: FAIR PROGNOSIS: IMPROVED CODE STATUS: FULL CODE Subjective Date of service: 11/15/20 Principal diagnosis: Ac. hypoxemic resp failure; P.E.; PNA; Cardiac arrest; TYLER; Shock Interval history: Patient is seen today for: Acute hypoxemic respiratory failure; Acute P.E.; Pneumonia; Cardiac arrest with ROSC; TYLER; Shock (cardiogenic and hypovolemic); Thrombocytopenia Seen and examined at bedside; 24hour events reviewed; nursing and respiratory care staff consulted; no adverse overnight events reported to me; resting in bed; doing very well post extubation; denies acute chest pains or SOB; no gross bleeding; tolerating oral meals; a little delirious Objective Vital Signs - 12hr 11/15/20 11/15/20 11/15/20 02:01 03:00 04:00 Temperature 98.2 F Pulse Rate 99 H 102 H Pulse Rate [ 99 H From Monitor] Respiratory 36 H 24 13 Rate Blood Pressure 140/69 154/70 O2 Sat by Pulse 96 94 97 Oximetry 11/15/20 11/15/20 11/15/20 04:01 04:17 05:00 Temperature Pulse Rate 102 H 101 H Pulse Rate [ From Monitor] Respiratory 25 H 36 H Rate Blood Pressure 139/65 170/86 O2 Sat by Pulse 93 93 90 Oximetry 11/15/20 11/15/20 11/15/20 06:00 07:00 07:57 Temperature 99.8 F H Pulse Rate 102 H 109 H Pulse Rate [ From Monitor] Respiratory 23 28 H Rate Blood Pressure 163/76 146/73 O2 Sat by Pulse 93 95 Oximetry 11/15/20 11/15/20 11/15/20 08:00 09:00 10:00 Temperature Pulse Rate 107 H 107 H 104 H Pulse Rate [ 111 H From Monitor] Respiratory 32 H 24 20 Rate Blood Pressure 151/72 135/62 149/70 O2 Sat by Pulse 94 95 96 Oximetry 11/15/20 11/15/20 11/15/20 10:10 11:01 12:00 Temperature 100.3 F H Pulse Rate 102 H 99 H 94 H Pulse Rate [ 91 H From Monitor] Respiratory 33 H 14 Rate Blood Pressure 149/70 151/62 153/61 O2 Sat by Pulse 95 96 Oximetry Constitutional: no acute distress, other (elderly obese female with mildly i ncreased respiratory effort at rest) Eyes: non-icteric ENT: oropharynx moist Neck: supple, no lymphadenopathy, no JVD Effort: normal Ascultation: Bilateral: diminished breath sounds, rhonchi (scant bases) Percussion: Bilateral: not dull Cardiovascular: regular rate and rhythm Gastrointestinal: normoactive bowel sounds, soft, non-tender, non-distended (protuberant) Integumentary: normal Extremities: no cyanosis, pulses normal, no ischemia or petechiae Neurologic: non-focal exam (grossly), pupils equal and round, CN II-XII normal, motor strength normal and (weak) Psychiatric: mood appropriate, affect normal CBC and BMP: 11/16/20 06:17 11/15/20 23:08 ABG, PT/INR, D-dimer: ABG ABG pH 7.427 pH Units (7.350-7.450) 11/14/20 12:15 POC ABG pCO2 33.5 mmHg (32.0-48.0) 11/13/20 04:03 ABG pCO2 31.2 mm Hg 11/14/20 12:15 POC ABG pO2 145.7 mmHg (83-108) H 11/13/20 04:03 ABG pO2 94.7 mm Hg (80.0-90.0) H 11/14/20 12:15 POC ABG HCO3 17.9 11/13/20 04:03 ABG O2 Saturation 97.6 % (95.0-99.0) 11/14/20 12:15 PT/INR, D-dimer PT 17.6 Sec. (12.2-14.9) H 11/12/20 04:26 INR 1.40 (0.87-1.13) H 11/12/20 04:26 D-Dimer > 15460 ng/mlDDU (0-234) H 11/10/20 04:28 Abnormal lab findings: Abnormal Labs 11/09/20 11/09/20 11/09/20 17:24 17:24 17:24 WBC RBC 3.29 L Hgb Hct Plt Count 100 L Lymph % (Auto) 54.6 H Foster % (Auto) Foster # (Auto) Seg Neutrophils % 38.5 L Seg Neuts % (Manual) Lymphocytes % (Manual) Seg Neutrophils # Seg Neutrophils # Man Lymphocytes # (Manual) PT 19.9 H INR 1.64 H APTT 49.2 H Fibrinogen D-Dimer > 34769 H Heparin Anti-Xa Level ABG pH POC ABG pO2 ABG pO2 ABG HCO3 ABG O2 Saturation ABG Base Excess ABG Hemoglobin ABG Oxyhemoglobin ABG Sodium ABG Potassium ABG Chloride ABG Glucose Oxyhemoglobin Carboxyhemoglobin Sodium Potassium 2.9 L* Chloride Carbon Dioxide 13 L BUN Creatinine 1.4 H Glucose 391 H POC Glucose Lactic Acid Calcium Phosphorus Magnesium AST ALT Lactate Dehydrogenase Total Creatine Kinase CK-MB (CK-2) 5.0 H CK-MB (CK-2) Rel Index 4.8 H Troponin T 0.263 H* C-Reactive Protein NT-Pro-B Natriuret Pep Total Protein Albumin Triglycerides 163 H HDL Cholesterol 29 L Arterial Blood Glucose Arterial Blood Ionized Calcium Urine Creatinine Urine Chloride Crossmatch 11/09/20 11/09/20 11/09/20 17:24 17:24 18:11 WBC RBC Hgb Hct Plt Count Lymph % (Auto) Foster % (Auto) Foster # (Auto) Seg Neutrophils % Seg Neuts % (Manual) Lymphocytes % (Manual) Seg Neutrophils # Seg Neutrophils # Man Lymphocytes # (Manual) PT INR APTT Fibrinogen D-Dimer Heparin Anti-Xa Level ABG pH POC ABG pO2 ABG pO2 ABG HCO3 ABG O2 Saturation ABG Base Excess ABG Hemoglobin ABG Oxyhemoglobin ABG Sodium ABG Potassium ABG Chloride ABG Glucose Oxyhemoglobin Carboxyhemoglobin Sodium Potassium Chloride Carbon Dioxide BUN Creatinine Glucose POC Glucose Lactic Acid 11.40 H* Calcium Phosphorus Magnesium AST 312 H ALT 273 H Lactate Dehydrogenase Total Creatine Kinase CK-MB (CK-2) CK-MB (CK-2) Rel Index Troponin T C-Reactive Protein NT-Pro-B Natriuret Pep 1169 H Total Protein 5.2 L Albumin 2.8 L Triglycerides HDL Cholesterol Arterial Blood Glucose Arterial Blood Ionized Calcium Urine Creatinine Urine Chloride Crossmatch See Detail 11/09/20 11/09/20 11/09/20 18:21 20:07 20:07 WBC RBC Hgb Hct Plt Count Lymph % (Auto) Foster % (Auto) Foster # (Auto) Seg Neutrophils % Seg Neuts % (Manual) Lymphocytes % (Manual) Seg Neutrophils # Seg Neutrophils # Man Lymphocytes # (Manual) PT INR APTT Fibrinogen D-Dimer Heparin Anti-Xa Level ABG pH 7.053 L POC ABG pO2 159.6 H ABG pO2 ABG HCO3 ABG O2 Saturation ABG Base Excess ABG Hemoglobin ABG Oxyhemoglobin ABG Sodium 135.1 L ABG Potassium ABG Chloride ABG Glucose 421 H Oxyhemoglobin Carboxyhemoglobin 0.3 L Sodium Potassium Chloride Carbon Dioxide BUN Creatinine Glucose POC Glucose Lactic Acid 9.00 H* Calcium Phosphorus Magnesium AST ALT Lactate Dehydrogenase Total Creatine Kinase 340 H CK-MB (CK-2) 14.2 H CK-MB (CK-2) Rel Index 4.1 H Troponin T 0.553 H* D C-Reactive Protein NT-Pro-B Natriuret Pep Total Protein Albumin Triglycerides HDL Cholesterol Arterial Blood Glucose 421 H Arterial Blood Ionized Calcium Urine Creatinine Urine Chloride Crossmatch 11/09/20 11/09/20 11/10/20 23:05 23:05 00:42 WBC RBC Hgb Hct Plt Count Lymph % (Auto) Foster % (Auto) Foster # (Auto) Seg Neutrophils % Seg Neuts % (Manual) Lymphocytes % (Manual) Seg Neutrophils # Seg Neutrophils # Man Lymphocytes # (Manual) PT 19.8 H INR 1.63 H APTT Fibrinogen 210 L D-Dimer Heparin Anti-Xa Level 0.79 H ABG pH POC ABG pO2 ABG pO2 ABG HCO3 ABG O2 Saturation ABG Base Excess ABG Hemoglobin ABG Oxyhemoglobin ABG Sodium ABG Potassium ABG Chloride ABG Glucose Oxyhemoglobin Carboxyhemoglobin Sodium Potassium Chloride Carbon Dioxide BUN Creatinine Glucose POC Glucose Lactic Acid 6.80 H* Calcium Phosphorus Magnesium AST ALT Lactate Dehydrogenase Total Creatine Kinase 449 H CK-MB (CK-2) 18.4 H CK-MB (CK-2) Rel Index Troponin T 0.873 H* D C-Reactive Protein NT-Pro-B Natriuret Pep Total Protein Albumin Triglycerides HDL Cholesterol Arterial Blood Glucose Arterial Blood Ionized Calcium Urine Creatinine Urine Chloride Crossmatch 11/10/20 11/10/20 11/10/20 04:28 04:28 04:28 WBC RBC Hgb Hct Plt Count Lymph % (Auto) Foster % (Auto) Foster # (Auto) Seg Neutrophils % Seg Neuts % (Manual) Lymphocytes % (Manual) Seg Neutrophils # Seg Neutrophils # Man Lymphocytes # (Manual) PT 20.3 H INR 1.69 H APTT Fibrinogen D-Dimer > 46530 H Heparin Anti-Xa Level ABG pH POC ABG pO2 ABG pO2 ABG HCO3 ABG O2 Saturation ABG Base Excess ABG Hemoglobin ABG Oxyhemoglobin ABG Sodium ABG Potassium ABG Chloride ABG Glucose Oxyhemoglobin Carboxyhemoglobin Sodium 136 L Potassium 3.3 L Chloride Carbon Dioxide 16 L BUN 21 H Creatinine 1.8 H Glucose 376 H POC Glucose Lactic Acid Calcium Phosphorus Magnesium AST ALT Lactate Dehydrogenase 1637 H Total Creatine Kinase CK-MB (CK-2) CK-MB (CK-2) Rel Index Troponin T C-Reactive Protein 3.50 H NT-Pro-B Natriuret Pep Total Protein Albumin Triglycerides HDL Cholesterol Arterial Blood Glucose Arterial Blood Ionized Calcium Urine Creatinine Urine Chloride Crossmatch 11/10/20 11/10/20 11/10/20 04:28 04:28 05:13 WBC 17.7 H RBC Hgb Hct Plt Count Lymph % (Auto) Foster % (Auto) Foster # (Auto) Seg Neutrophils % Seg Neuts % (Manual) 96.0 H Lymphocytes % (Manual) 1.0 L Seg Neutrophils # Seg Neutrophils # Man 17.0 H Lymphocytes # (Manual) 0.2 L PT INR APTT Fibrinogen D-Dimer Heparin Anti-Xa Level ABG pH 7.221 L POC ABG pO2 162.0 H ABG pO2 ABG HCO3 ABG O2 Saturation ABG Base Excess ABG Hemoglobin 11.7 L ABG Oxyhemoglobin 98.9 H ABG Sodium 133.6 L ABG Potassium 3.1 L ABG Chloride ABG Glucose 346 H Oxyhemoglobin Carboxyhemoglobin 0.1 L Sodium Potassium Chloride Carbon Dioxide BUN Creatinine Glucose POC Glucose Lactic Acid 6.10 H* Calcium Phosphorus Magnesium AST ALT Lactate Dehydrogenase Total Creatine Kinase CK-MB (CK-2) CK-MB (CK-2) Rel Index Troponin T C-Reactive Protein NT-Pro-B Natriuret Pep Total Protein Albumin Triglycerides HDL Cholesterol Arterial Blood Glucose 346 H Arterial Blood Ionized Calcium Urine Creatinine Urine Chloride Crossmatch 11/10/20 11/10/20 11/10/20 11:06 12:30 15:08 WBC 16.1 H RBC 3.20 L Hgb 9.7 L Hct 29.5 L Plt Count Lymph % (Auto) 7.4 L Foster % (Auto) 8.7 H Foster # (Auto) 1.4 H Seg Neutrophils % 83.7 H Seg Neuts % (Manual) Lymphocytes % (Manual) Seg Neutrophils # 13.5 H Seg Neutrophils # Man Lymphocytes # (Manual) PT 18.9 H INR 1.53 H APTT 204.8 H* Fibrinogen D-Dimer Heparin Anti-Xa Level 0.76 H ABG pH POC ABG pO2 ABG pO2 ABG HCO3 ABG O2 Saturation ABG Base Excess ABG Hemoglobin ABG Oxyhemoglobin ABG Sodium ABG Potassium ABG Chloride ABG Glucose Oxyhemoglobin Carboxyhemoglobin Sodium Potassium Chloride Carbon Dioxide BUN Creatinine Glucose POC Glucose Lactic Acid Calcium Phosphorus Magnesium AST ALT Lactate Dehydrogenase Total Creatine Kinase CK-MB (CK-2) CK-MB (CK-2) Rel Index Troponin T C-Reactive Protein NT-Pro-B Natriuret Pep Total Protein Albumin Triglycerides HDL Cholesterol Arterial Blood Glucose Arterial Blood Ionized Calcium Urine Creatinine 80.9 H Urine Chloride 38.8 L Crossmatch 11/10/20 11/10/20 11/10/20 15:08 17:17 18:25 WBC RBC Hgb Hct Plt Count Lymph % (Auto) Foster % (Auto) Foster # (Auto) Seg Neutrophils % Seg Neuts % (Manual) Lymphocytes % (Manual) Seg Neutrophils # Seg Neutrophils # Man Lymphocytes # (Manual) PT INR APTT Fibrinogen D-Dimer Heparin Anti-Xa Level ABG pH 7.206 L POC ABG pO2 ABG pO2 ABG HCO3 18.3 L ABG O2 Saturation ABG Base Excess -9.2 L ABG Hemoglobin 9.4 L ABG Oxyhemoglobin ABG Sodium ABG Potassium ABG Chloride ABG Glucose Oxyhemoglobin 94.3 L Carboxyhemoglobin Sodium Potassium Chloride Carbon Dioxide BUN Creatinine Glucose POC Glucose 200 H Lactic Acid 4.10 H* Calcium Phosphorus Magnesium AST ALT Lactate Dehydrogenase Total Creatine Kinase CK-MB (CK-2) CK-MB (CK-2) Rel Index Troponin T C-Reactive Protein NT-Pro-B Natriuret Pep Total Protein Albumin Triglycerides HDL Cholesterol Arterial Blood Glucose Arterial Blood Ionized Calcium Urine Creatinine Urine Chloride Crossmatch 11/10/20 11/10/20 11/10/20 19:54 20:21 21:13 WBC RBC Hgb 9.7 L Hct 28.4 L Plt Count Lymph % (Auto) Foster % (Auto) Foster # (Auto) Seg Neutrophils % Seg Neuts % (Manual) Lymphocytes % (Manual) Seg Neutrophils # Seg Neutrophils # Man Lymphocytes # (Manual) PT INR APTT Fibrinogen D-Dimer Heparin Anti-Xa Level 0.13 L ABG pH 7.297 L POC ABG pO2 ABG pO2 ABG HCO3 ABG O2 Saturation ABG Base Excess ABG Hemoglobin 7.3 L ABG Oxyhemoglobin ABG Sodium 135.6 L ABG Potassium ABG Chloride 111.0 H ABG Glucose 153 H Oxyhemoglobin Carboxyhemoglobin Sodium Potassium Chloride Carbon Dioxide BUN Creatinine Glucose POC Glucose Lactic Acid Calcium Phosphorus Magnesium AST ALT Lactate Dehydrogenase Total Creatine Kinase CK-MB (CK-2) CK-MB (CK-2) Rel Index Troponin T C-Reactive Protein NT-Pro-B Natriuret Pep Total Protein Albumin Triglycerides HDL Cholesterol Arterial Blood Glucose 153 H Arterial Blood Ionized Calcium Urine Creatinine Urine Chloride Crossmatch 11/10/20 11/11/20 11/11/20 23:30 04:12 04:35 WBC 16.0 H RBC 2.83 L Hgb 8.7 L Hct 25.8 L Plt Count Lymph % (Auto) Foster % (Auto) Foster # (Auto) Seg Neutrophils % Seg Neuts % (Manual) Lymphocytes % (Manual) Seg Neutrophils # Seg Neutrophils # Man Lymphocytes # (Manual) PT INR APTT Fibrinogen D-Dimer Heparin Anti-Xa Level 0.29 L ABG pH POC ABG pO2 ABG pO2 ABG HCO3 ABG O2 Saturation ABG Base Excess ABG Hemoglobin ABG Oxyhemoglobin ABG Sodium ABG Potassium ABG Chloride ABG Glucose Oxyhemoglobin Carboxyhemoglobin Sodium Potassium Chloride Carbon Dioxide BUN Creatinine Glucose POC Glucose 166 H Lactic Acid Calcium Phosphorus Magnesium AST ALT Lactate Dehydrogenase Total Creatine Kinase CK-MB (CK-2) CK-MB (CK-2) Rel Index Troponin T C-Reactive Protein NT-Pro-B Natriuret Pep Total Protein Albumin Triglycerides HDL Cholesterol Arterial Blood Glucose Arterial Blood Ionized Calcium Urine Creatinine Urine Chloride Crossmatch 11/11/20 11/11/20 11/11/20 04:35 05:00 05:01 WBC RBC Hgb Hct Plt Count Lymph % (Auto) Foster % (Auto) Foster # (Auto) Seg Neutrophils % Seg Neuts % (Manual) Lymphocytes % (Manual) Seg Neutrophils # Seg Neutrophils # Man Lymphocytes # (Manual) PT INR APTT Fibrinogen D-Dimer Heparin Anti-Xa Level ABG pH POC ABG pO2 ABG pO2 ABG HCO3 ABG O2 Saturation ABG Base Excess ABG Hemoglobin ABG Oxyhemoglobin ABG Sodium ABG Potassium ABG Chloride ABG Glucose Oxyhemoglobin Carboxyhemoglobin Sodium 136 L Potassium Chloride Carbon Dioxide 17 L BUN 25 H Creatinine 2.5 H Glucose 192 H POC Glucose 191 H Lactic Acid 2.20 H* Calcium 7.6 L Phosphorus Magnesium AST 232 H ALT 309 H Lactate Dehydrogenase Total Creatine Kinase CK-MB (CK-2) CK-MB (CK-2) Rel Index Troponin T C-Reactive Protein NT-Pro-B Natriuret Pep Total Protein 5.7 L Albumin 2.7 L Triglycerides HDL Cholesterol Arterial Blood Glucose Arterial Blood Ionized Calcium Urine Creatinine Urine Chloride Crossmatch 11/11/20 11/11/20 11/11/20 09:45 12:34 14:40 WBC RBC Hgb Hct Plt Count Lymph % (Auto) Foster % (Auto) Foster # (Auto) Seg Neutrophils % Seg Neuts % (Manual) Lymphocytes % (Manual) Seg Neutrophils # Seg Neutrophils # Man Lymphocytes # (Manual) PT INR APTT Fibrinogen D-Dimer Heparin Anti-Xa Level ABG pH POC ABG pO2 ABG pO2 172.4 H ABG HCO3 16.7 L ABG O2 Saturation 99.1 H ABG Base Excess -7.9 L ABG Hemoglobin 6.1 L ABG Oxyhemoglobin ABG Sodium ABG Potassium ABG Chloride ABG Glucose Oxyhemoglobin Carboxyhemoglobin Sodium Potassium Chloride Carbon Dioxide BUN Creatinine Glucose POC Glucose 141 H Lactic Acid 2.70 H* Calcium Phosphorus Magnesium AST ALT Lactate Dehydrogenase Total Creatine Kinase CK-MB (CK-2) CK-MB (CK-2) Rel Index Troponin T C-Reactive Protein NT-Pro-B Natriuret Pep Total Protein Albumin Triglycerides HDL Cholesterol Arterial Blood Glucose Arterial Blood Ionized Calcium Urine Creatinine Urine Chloride Crossmatch 11/11/20 11/11/20 11/11/20 17:06 21:00 23:20 WBC RBC Hgb 7.1 L Hct 20.9 L Plt Count Lymph % (Auto) Foster % (Auto) Foster # (Auto) Seg Neutrophils % Seg Neuts % (Manual) Lymphocytes % (Manual) Seg Neutrophils # Seg Neutrophils # Man Lymphocytes # (Manual) PT INR APTT Fibrinogen D-Dimer Heparin Anti-Xa Level ABG pH 7.287 L POC ABG pO2 ABG pO2 ABG HCO3 ABG O2 Saturation ABG Base Excess ABG Hemoglobin 7.5 L ABG Oxyhemoglobin ABG Sodium 134.1 L ABG Potassium ABG Chloride 110.0 H ABG Glucose 141 H Oxyhemoglobin Carboxyhemoglobin Sodium Potassium Chloride Carbon Dioxide BUN Creatinine Glucose POC Glucose 157 H Lactic Acid Calcium Phosphorus Magnesium AST ALT Lactate Dehydrogenase Total Creatine Kinase CK-MB (CK-2) CK-MB (CK-2) Rel Index Troponin T C-Reactive Protein NT-Pro-B Natriuret Pep Total Protein Albumin Triglycerides HDL Cholesterol Arterial Blood Glucose 141 H Arterial Blood Ionized Calcium 4.2 L Urine Creatinine Urine Chloride Crossmatch 11/11/20 11/12/20 11/12/20 23:30 04:26 04:26 WBC 16.8 H RBC 2.25 L Hgb 6.8 L Hct 20.5 L Plt Count Lymph % (Auto) Foster % (Auto) Foster # (Auto) Seg Neutrophils % Seg Neuts % (Manual) Lymphocytes % (Manual) Seg Neutrophils # Seg Neutrophils # Man Lymphocytes # (Manual) PT INR APTT Fibrinogen D-Dimer Heparin Anti-Xa Level ABG pH POC ABG pO2 ABG pO2 ABG HCO3 ABG O2 Saturation ABG Base Excess ABG Hemoglobin ABG Oxyhemoglobin ABG Sodium ABG Potassium ABG Chloride ABG Glucose Oxyhemoglobin Carboxyhemoglobin Sodium Potassium Chloride 110.1 H Carbon Dioxide 18 L BUN 25 H Creatinine 2.4 H Glucose 146 H POC Glucose 127 H Lactic Acid Calcium 7.4 L Phosphorus Magnesium AST ALT Lactate Dehydrogenase Total Creatine Kinase CK-MB (CK-2) CK-MB (CK-2) Rel Index Troponin T C-Reactive Protein NT-Pro-B Natriuret Pep Total Protein Albumin Triglycerides HDL Cholesterol Arterial Blood Glucose Arterial Blood Ionized Calcium Urine Creatinine Urine Chloride Crossmatch 11/12/20 11/12/20 11/12/20 04:26 06:01 12:02 WBC RBC Hgb Hct Plt Count Lymph % (Auto) Foster % (Auto) Foster # (Auto) Seg Neutrophils % Seg Neuts % (Manual) Lymphocytes % (Manual) Seg Neutrophils # Seg Neutrophils # Man Lymphocytes # (Manual) PT 17.6 H INR 1.40 H APTT 162.1 H* Fibrinogen D-Dimer Heparin Anti-Xa Level ABG pH POC ABG pO2 ABG pO2 ABG HCO3 ABG O2 Saturation ABG Base Excess ABG Hemoglobin ABG Oxyhemoglobin ABG Sodium ABG Potassium ABG Chloride ABG Glucose Oxyhemoglobin Carboxyhemoglobin Sodium Potassium Chloride Carbon Dioxide BUN Creatinine Glucose POC Glucose 134 H 131 H Lactic Acid Calcium Phosphorus Magnesium AST ALT Lactate Dehydrogenase Total Creatine Kinase CK-MB (CK-2) CK-MB (CK-2) Rel Index Troponin T C-Reactive Protein NT-Pro-B Natriuret Pep Total Protein Albumin Triglycerides HDL Cholesterol Arterial Blood Glucose Arterial Blood Ionized Calcium Urine Creatinine Urine Chloride Crossmatch 11/12/20 11/12/20 11/12/20 12:05 12:34 17:26 WBC RBC Hgb 6.8 L Hct 20.3 L Plt Count Lymph % (Auto) Foster % (Auto) Foster # (Auto) Seg Neutrophils % Seg Neuts % (Manual) Lymphocytes % (Manual) Seg Neutrophils # Seg Neutrophils # Man Lymphocytes # (Manual) PT INR APTT Fibrinogen D-Dimer Heparin Anti-Xa Level ABG pH 7.297 L POC ABG pO2 ABG pO2 ABG HCO3 ABG O2 Saturation ABG Base Excess ABG Hemoglobin 7.3 L ABG Oxyhemoglobin ABG Sodium 135.6 L ABG Potassium ABG Chloride 111.0 H ABG Glucose 153 H Oxyhemoglobin Carboxyhemoglobin Sodium Potassium Chloride Carbon Dioxide BUN Creatinine Glucose POC Glucose 119 H Lactic Acid Calcium Phosphorus Magnesium AST ALT Lactate Dehydrogenase Total Creatine Kinase CK-MB (CK-2) CK-MB (CK-2) Rel Index Troponin T C-Reactive Protein NT-Pro-B Natriuret Pep Total Protein Albumin Triglycerides HDL Cholesterol Arterial Blood Glucose 153 H Arterial Blood Ionized Calcium Urine Creatinine Urine Chloride Crossmatch 11/12/20 11/13/20 11/13/20 23:49 02:11 02:11 WBC 15.9 H RBC 2.38 L Hgb 7.1 L Hct 21.3 L Plt Count Lymph % (Auto) Foster % (Auto) 8.9 H Foster # (Auto) 1.4 H Seg Neutrophils % 73.5 H Seg Neuts % (Manual) Lymphocytes % (Manual) Seg Neutrophils # 11.7 H Seg Neutrophils # Man Lymphocytes # (Manual) PT INR APTT Fibrinogen D-Dimer Heparin Anti-Xa Level ABG pH POC ABG pO2 ABG pO2 ABG HCO3 ABG O2 Saturation ABG Base Excess ABG Hemoglobin ABG Oxyhemoglobin ABG Sodium ABG Potassium ABG Chloride ABG Glucose Oxyhemoglobin Carboxyhemoglobin Sodium Potassium Chloride 109.8 H Carbon Dioxide 18 L BUN 26 H Creatinine 2.3 H Glucose 109 H POC Glucose 118 H Lactic Acid Calcium 7.7 L Phosphorus Magnesium AST ALT Lactate Dehydrogenase Total Creatine Kinase CK-MB (CK-2) CK-MB (CK-2) Rel Index Troponin T C-Reactive Protein NT-Pro-B Natriuret Pep Total Protein Albumin Triglycerides HDL Cholesterol Arterial Blood Glucose Arterial Blood Ionized Calcium Urine Creatinine Urine Chloride Crossmatch 11/13/20 11/13/20 11/13/20 04:03 06:01 07:50 WBC RBC Hgb 7.7 L Hct 23.3 L Plt Count Lymph % (Auto) Foster % (Auto) Foster # (Auto) Seg Neutrophils % Seg Neuts % (Manual) Lymphocytes % (Manual) Seg Neutrophils # Seg Neutrophils # Man Lymphocytes # (Manual) PT INR APTT Fibrinogen D-Dimer Heparin Anti-Xa Level ABG pH POC ABG pO2 145.7 H ABG pO2 ABG HCO3 ABG O2 Saturation ABG Base Excess ABG Hemoglobin 7.2 L ABG Oxyhemoglobin ABG Sodium 135.3 L ABG Potassium ABG Chloride 113.0 H ABG Glucose 108 H Oxyhemoglobin Carboxyhemoglobin Sodium Potassium Chloride Carbon Dioxide BUN Creatinine Glucose POC Glucose 108 H Lactic Acid Calcium Phosphorus Magnesium AST ALT Lactate Dehydrogenase Total Creatine Kinase CK-MB (CK-2) CK-MB (CK-2) Rel Index Troponin T C-Reactive Protein NT-Pro-B Natriuret Pep Total Protein Albumin Triglycerides HDL Cholesterol Arterial Blood Glucose 108 H Arterial Blood Ionized Calcium 4.3 L Urine Creatinine Urine Chloride Crossmatch 11/13/20 11/13/20 11/13/20 12:00 14:30 17:10 WBC RBC Hgb 7.5 L Hct 22.6 L Plt Count Lymph % (Auto) Foster % (Auto) Foster # (Auto) Seg Neutrophils % Seg Neuts % (Manual) Lymphocytes % (Manual) Seg Neutrophils # Seg Neutrophils # Man Lymphocytes # (Manual) PT INR APTT Fibrinogen D-Dimer Heparin Anti-Xa Level ABG pH POC ABG pO2 ABG pO2 ABG HCO3 ABG O2 Saturation ABG Base Excess ABG Hemoglobin ABG Oxyhemoglobin ABG Sodium ABG Potassium ABG Chloride ABG Glucose Oxyhemoglobin Carboxyhemoglobin Sodium Potassium Chloride Carbon Dioxide BUN Creatinine Glucose POC Glucose 147 H 110 H Lactic Acid Calcium Phosphorus Magnesium AST ALT Lactate Dehydrogenase Total Creatine Kinase CK-MB (CK-2) CK-MB (CK-2) Rel Index Troponin T C-Reactive Protein NT-Pro-B Natriuret Pep Total Protein Albumin Triglycerides HDL Cholesterol Arterial Blood Glucose Arterial Blood Ionized Calcium Urine Creatinine Urine Chloride Crossmatch 11/13/20 11/14/20 11/14/20 21:22 12:15 14:50 WBC RBC Hgb Hct Plt Count Lymph % (Auto) Foster % (Auto) Foster # (Auto) Seg Neutrophils % Seg Neuts % (Manual) Lymphocytes % (Manual) Seg Neutrophils # Seg Neutrophils # Man Lymphocytes # (Manual) PT INR APTT Fibrinogen D-Dimer Heparin Anti-Xa Level 0.10 L ABG pH POC ABG pO2 ABG pO2 97.2 H 94.7 H ABG HCO3 18.6 L ABG O2 Saturation ABG Base Excess -6.1 L -3.7 L ABG Hemoglobin 9.2 L 8.3 L ABG Oxyhemoglobin ABG Sodium ABG Potassium ABG Chloride ABG Glucose Oxyhemoglobin Carboxyhemoglobin Sodium Potassium Chloride Carbon Dioxide BUN Creatinine Glucose POC Glucose Lactic Acid Calcium Phosphorus Magnesium AST ALT Lactate Dehydrogenase Total Creatine Kinase CK-MB (CK-2) CK-MB (CK-2) Rel Index Troponin T C-Reactive Protein NT-Pro-B Natriuret Pep Total Protein Albumin Triglycerides HDL Cholesterol Arterial Blood Glucose Arterial Blood Ionized Calcium Urine Creatinine Urine Chloride Crossmatch 11/14/20 11/14/20 11/14/20 14:50 17:53 Unknown WBC 15.9 H RBC 2.61 L Hgb 7.8 L Hct 23.1 L Plt Count Lymph % (Auto) Foster % (Auto) Foster # (Auto) Seg Neutrophils % Seg Neuts % (Manual) Lymphocytes % (Manual) Seg Neutrophils # Seg Neutrophils # Man Lymphocytes # (Manual) PT INR APTT Fibrinogen D-Dimer Heparin Anti-Xa Level ABG pH POC ABG pO2 ABG pO2 ABG HCO3 ABG O2 Saturation ABG Base Excess ABG Hemoglobin ABG Oxyhemoglobin ABG Sodium ABG Potassium ABG Chloride ABG Glucose Oxyhemoglobin Carboxyhemoglobin Sodium Potassium Chloride Carbon Dioxide BUN Creatinine Glucose POC Glucose 113 H Lactic Acid Calcium Phosphorus Magnesium AST ALT Lactate Dehydrogenase Total Creatine Kinase CK-MB (CK-2) CK-MB (CK-2) Rel Index Troponin T C-Reactive Protein 9.40 H NT-Pro-B Natriuret Pep Total Protein Albumin Triglycerides HDL Cholesterol Arterial Blood Glucose Arterial Blood Ionized Calcium Urine Creatinine Urine Chloride Crossmatch 11/14/20 11/15/20 11/15/20 Unknown 00:10 02:46 WBC 15.2 H RBC 2.83 L Hgb 8.7 L Hct 25.6 L Plt Count Lymph % (Auto) Foster % (Auto) Foster # (Auto) Seg Neutrophils % Seg Neuts % (Manual) Lymphocytes % (Manual) Seg Neutrophils # Seg Neutrophils # Man Lymphocytes # (Manual) PT INR APTT Fibrinogen D-Dimer Heparin Anti-Xa Level 0.18 L ABG pH POC ABG pO2 ABG pO2 ABG HCO3 ABG O2 Saturation ABG Base Excess ABG Hemoglobin ABG Oxyhemoglobin ABG Sodium ABG Potassium ABG Chloride ABG Glucose Oxyhemoglobin Carboxyhemoglobin Sodium Potassium 3.3 L Chloride 107.8 H Carbon Dioxide 18 L BUN 22 H Creatinine 1.7 H Glucose POC Glucose Lactic Acid Calcium 8.2 L Phosphorus 1.70 L Magnesium 1.40 L AST ALT 88 H Lactate Dehydrogenase Total Creatine Kinase CK-MB (CK-2) CK-MB (CK-2) Rel Index Troponin T C-Reactive Protein NT-Pro-B Natriuret Pep Total Protein 6.0 L Albumin 2.7 L Triglycerides HDL Cholesterol Arterial Blood Glucose Arterial Blood Ionized Calcium Urine Creatinine Urine Chloride Crossmatch 11/15/20 11/15/20 11/15/20 02:46 06:36 08:20 WBC RBC Hgb Hct Plt Count Lymph % (Auto) Foster % (Auto) Foster # (Auto) Seg Neutrophils % Seg Neuts % (Manual) Lymphocytes % (Manual) Seg Neutrophils # Seg Neutrophils # Man Lymphocytes # (Manual) PT INR APTT Fibrinogen D-Dimer Heparin Anti-Xa Level 0.12 L ABG pH POC ABG pO2 ABG pO2 ABG HCO3 ABG O2 Saturation ABG Base Excess ABG Hemoglobin ABG Oxyhemoglobin ABG Sodium ABG Potassium ABG Chloride ABG Glucose Oxyhemoglobin Carboxyhemoglobin Sodium Potassium 3.5 L Chloride Carbon Dioxide 17 L BUN 22 H Creatinine 1.7 H Glucose POC Glucose 107 H Lactic Acid Calcium 8.2 L Phosphorus Magnesium AST ALT Lactate Dehydrogenase Total Creatine Kinase CK-MB (CK-2) CK-MB (CK-2) Rel Index Troponin T C-Reactive Protein NT-Pro-B Natriuret Pep Total Protein Albumin Triglycerides HDL Cholesterol Arterial Blood Glucose Arterial Blood Ionized Calcium Urine Creatinine Urine Chloride Crossmatch 11/15/20 11:35 WBC RBC Hgb Hct Plt Count Lymph % (Auto) Foster % (Auto) Foster # (Auto) Seg Neutrophils % Seg Neuts % (Manual) Lymphocytes % (Manual) Seg Neutrophils # Seg Neutrophils # Man Lymphocytes # (Manual) PT INR APTT Fibrinogen D-Dimer Heparin Anti-Xa Level ABG pH POC ABG pO2 ABG pO2 ABG HCO3 ABG O2 Saturation ABG Base Excess ABG Hemoglobin ABG Oxyhemoglobin ABG Sodium ABG Potassium ABG Chloride ABG Glucose Oxyhemoglobin Carboxyhemoglobin Sodium Potassium Chloride Carbon Dioxide BUN Creatinine Glucose POC Glucose 145 H Lactic Acid Calcium Phosphorus Magnesium AST ALT Lactate Dehydrogenase Total Creatine Kinase CK-MB (CK-2) CK-MB (CK-2) Rel Index Troponin T C-Reactive Protein NT-Pro-B Natriuret Pep Total Protein Albumin Triglycerides HDL Cholesterol Arterial Blood Glucose Arterial Blood Ionized Calcium Urine Creatinine Urine Chloride Crossmatch Chest x-ray: other (none today) Allied health notes reviewed: nursing
[2020-11-15 23:30] LABS: Hematocrit 24.4 % (30.3-42.9); Hemoglobin 8.3 gm/dl (10.1-14.3); Mean Corpuscular HGB Conc 34 % (30-34); Mean Corpuscular Volume 90 fl (79-97); Platelet Count 212 K/mm3 (140-440); Red Blood Count 2.72 M/mm3 (3.65-5.03)
[2020-11-15 23:48] LABS: INR 1.17 (0.87-1.13)
[2020-11-16] MEDS: INSULIN REGULAR, HUMAN 100 UNITS/1 ML SUB-Q SCH ×5 (00:26→21:42)
[2020-11-16] MEDS: hydrALAZINE 20 MG/1 ML INJ IV PRN (02:50)
[2020-11-16] MEDS: LINEZOLID 600 MG/300 ML BAG IV SCH ×2 (02:51→14:15)
[2020-11-16 06:35] LABS: Hematocrit 25.9 % (30.3-42.9); Hemoglobin 8.8 gm/dl (10.1-14.3)
[2020-11-16] MEDS: PANTOPRAZOLE 40 MG INJ IV SCH ×2 (10:03→22:32)
[2020-11-16] MEDS: METOPROLOL TARTRATE 25 MG TAB PO SCH (10:03)
[2020-11-16] MEDS: SENNOSIDES/DOCUSATE SODIUM 8.6/50 MG TAB FEEDTUBE SCH ×2 (10:04→22:32)
[2020-11-16] MEDS: APIXABAN 5 MG TAB PO SCH ×2 (10:05→22:31)
--- NOTE | 2020-11-16 10:35 | Progress Note ---
Assessment and Plan Increase metoprolol dose and optimize antihypertensive regimen. - Patient Problems (1) Acute massive pulmonary embolism Current Visit: Yes Status: Acute (2) Cardiopulmonary arrest Current Visit: Yes Status: Resolved (3) Acute respiratory failure with hypoxia Current Visit: Yes Status: Resolved (4) Paroxysmal atrial fibrillation with RVR Current Visit: Yes Status: Acute (5) Non-STEMI (non-ST elevated myocardial infarction) Current Visit: Yes Status: Acute (6) Upper GI bleed Current Visit: Yes Status: Acute (7) Acute kidney injury Current Visit: Yes Status: Acute (8) Anemia Current Visit: Yes Status: Acute (9) Hypertension Current Visit: Yes Status: Chronic Qualifiers: Hypertension type: primary hypertension Qualified Code(s): I10 - Essential (primary) hypertension Subjective Date of service: 11/16/20 Principal diagnosis: Ac. hypoxemic resp failure; P.E.; PNA; Cardiac arrest; TYLER; Shock Interval history: No complaint. Objective Vital Signs Last Vital Signs Temp 100.4 F H 11/16/20 07:58 Pulse 102 H 11/16/20 10:03 Resp 40 H 11/16/20 09:00 BP 172/89 11/16/20 10:03 Pulse Ox 96 11/16/20 09:00 - Physical Examination General: No Apparent Distress HEENT: Positive: EOMI, Normocephaly, Mucus Membranes Moist Neck: Positive: neck supple, trachea midline Cardiac: Positive: Reg Rate and Rhythm, S1/S2 Lungs: Positive: clear to auscultation Neuro: Positive: Grossly Intact Abdomen: Positive: Soft, Active Bowel Sounds. Negative: Tender Skin: Negative: Rash Musculoskeletal: Normal Range of Motion Extremities: Present: normal. Absent: edema - Labs and Meds Coagulation 11/15/20 Range/Units 23:08 PT 15.4 H (12.2-14.9) Sec. INR 1.17 H (0.87-1.13) APTT 52.0 H (24.2-36.6) Sec. CBC 11/15/20 11/16/20 Range/Units 23:08 06:17 WBC 13.4 H (4.5-11.0) K/mm3 RBC 2.72 L (3.65-5.03) M/mm3 Hgb 8.3 L 8.8 L (10.1-14.3) gm/dl Hct 24.4 L 25.9 L (30.3-42.9) % Plt Count 212 239 (140-440) K/mm3 Comprehensive Metabolic Panel 11/15/20 Range/Units 23:08 Creatinine 1.6 H (0.6-1.2) mg/dL - Imaging and Cardiology Echo: report reviewed (11/10/2020 - EF 50-55%, normal RVSF, RV mildly dilated, mild MR, mild TR, mod pulm HTN w/RVSP of 51mmHg) - Telemetry EKG Rhythm: Sinus Tachycardia AV and intraventricular conduction: right bundle branch block - Allied health notes Allied health notes reviewed: nursing
[2020-11-16] MEDS ORDERED: hydrALAZINE 20 MG/1 ML INJ IV ONE (10:53)
[2020-11-16] MEDS ORDERED: hydrALAZINE 20 MG/1 ML INJ IV PRN (10:53)
--- NOTE | 2020-11-16 10:56 | Progress Note ---
Assessment and Plan Assessment and plan: This 84-year-old female with HTN, CKD, chronic right BBB, arthritis admitted s/P cardiac arrest, pulmonary embolism , Pneumonia and GI bleed Neuro: Acute metabolic encephalopathy -CT head completed which shows no acute intracranial abnormality, probable meningioma along the right anterior frontal lobe -Avoid delirium -Patient is awake, follows commands, positive track/focus, pupils equal round reactive -Neurology consulted, appreciate recommendations -Per neurology obtain MRI with Geodon when possible Cardio: S/p cardiopulmonary arrest, atrial fibrillation, acute diastolic heart failure -Cardiology consulted, appreciate recommendations -Echo 11/10/2020-EF 50 to 55%, right ventricular systolic function is normal, right ventricle is mildly dilated, left atrium not well visualized, mild mitral regurgitation, moderate pulmonary hypertension -Vasopressor support with Levophed -s/p dopamine and dobutamine with IVF -Blood pressure monitoring per protocol -started on metoprolol 12.5 BID -As needed hydralazine Respiratory: Acute hypoxic respiratory failure, acute pulmonary medicine with acute cor pulmonale -[facility] consulted, appreciate recommendations -Intubated 11/09 with 7.0 at 22 at the lip-> extuabted 11/14 -Placed on NC -Pulmonary hygiene GI: Upper GI hemorrhage, elevated LFTs -GI consulted, appreciate recommendations -s/p Protonix drip and now on Protonix IV BID -Hepatic serologies negative, hepatic panel negative -Per GI will reassess for EGD if patient develops severe GI bleeding -BR: Senokot -24-hour net balance -127 -Trend LFT -Gastric occult positive -passed bedside swallow eval -CLD, advance as tolerated : Acute kidney injury, metabolic acidosis -Nephrology consulted, appreciate recommendations -Likely prerenal injury in setting of acute bilateral pulmonary embolism with cor pulmonale and right-sided heart failure -Gentle IV hydration -Renal ultrasound showed no evidence of obstructive PE, bilateral echogenic kidneys -No indication for renal replacement at this time per nephrology -Urine electrolytes -Strict intake and output -Daily weights -Avoid nephrotoxic medications -Trend BMP ID: Bilateral pneumonia, SIRS, lactic acidosis -Empiric antibiotics with Rocephin and azithromycin (11/09-11/13) -Monitor fever and WBC curve -CXR noted with worsening bilateral airspace disease -Tracheal aspirate with MRSA -ID consulted -started on ziovox Heme: Large bilateral segmental and subsegmental PE, thrombocytopenia, coagulopathy, anemia, Left LE DVT -Vascular surgery consulted, appreciate recommendations -S/p pulmonary angiography with placement of thrombolytic catheters -Heparin drip -Transfuse for hemoglobin less than 7 -Trend CBC -S/p 1 unit PRBC -monitor for bleeding Endo: NAD -Accucheck q6 -Avoid hypoglycemia We will closely monitor patient and adjust management as needed Plan of care reviewed with the patient and her nurse, discussed with pulmonary critical The high probability of a clinically significant, sudden or life threatening deterioration of the [multi] system(s) required my full and direct attention, intervention and personal management. The aggregate critical care time was [60] minutes. This time is in addition to time spent performing reported procedures but includes the following: [x] Data Review and interpretation [x] Patient assessment and monitoring of vital signs [x] Documentation [x] Medication orders and management Disposition Plan: icu Total Time Spent with Patient (Minutes): 60 History Interval history: This is a 84-year-old female with HTN, CKD, chronic RBBB, arthritis who presented to the emergency department on 11/09 from the department With valuation of difficulty breathing and shortness of breath. Upon arrival to the emergency department patient was actively unresponsive and positive pressure ventilation was started and subsequently had a cardiac arrest with eventual ROSC. Work-up emergency department revealed elevated D-dimer of greater than 10,000, elevated lactic acid, CTA showed bilateral segmental and subsegmental emboli with right heart strain, bibasilar airspace consolidation and trace right pleural effusion compatible with pneumonia. Vascular surgery was consulted for thrombolysis. Patient was admitted to the hospitalist service with consults to [facility], cardiology, nephrology and gastroenterology. 11/10: Patient seen and examined this morning review of her electrolytes shows some abnormalities with noted worsening renal failure in the setting of hypotension. Noted A. fib on EKG. Patient remains on EKOS system. Will obtain cardiology and nephrology evaluation. Echocardiogram to further evaluate condition of the heart in the setting of her cardiac arrest. Patient remains a PUI Covid testing is pending. Discussed with coding quality analyst this morning may consider changing from dopamine to dobutamine but will await cardiology evaluation. Possible further hydration in the setting of underlying right heart failure. I did discuss with the family who are not aware of any renal problems in the past. Ventilator management per local [place] truck driver. Closely monitor leukocytosis no fever noted at this time. I will replace potassium as noted hypokalemia Discussed with family the two daughters in detail 11/11: Patient is having blood-tinged secretions while suctioning, NG tube to dark secretions, gastric occult sent. PICC line ordered to be placed. Cardiology to change dopamine to dobutamine and start normal saline. No plans for hemodialysis per nephrology. 11/12: CPAP trial, PICC placement today and will remove femoral line after placement. No indication for renal replacement per nephrology. BLE doppler US per vascular. 11/13: Patient tolerating CPAP trial, per neurology consider MRI brain with Manuel, patient has staph areas in tracheal aspirate, appropriate response to PRBC, remains off vasopressors, worsening renal function. 11/14: Patient was extubated today, hypokalemia/hypomagnesemia/hypophosphatemia treated with K-Phos. Improvement to renal function noted. Patient passed bedside swallow and ordered a diet. Tracheal aspirate with MRSA-> Zyvox every 12 and ID consulted 11/15; PT, OT requested, will transition heparin drip to Eliquis with the morning dose tomorrow Mild hypokalemia, corrected with KCl, other electrolytes normal range, discussed with local [place] truck driver Dr. Wagner I spoke with patient's daughter Raza Pizarro and 2 other siblings at [phone] I discussed extensively with all the details of patient's condition, tests and reports, consultants recommendation, her dramatic improvement, extubation and discharge planning issues. They had many questions answered all of them And encouraged them to call back if they have any new concerns. They were appreciative of my call 11/16; PT and OT are evaluating the patient, have not completed the recommendations DC planning per case management History Interval history: I have seen and examined the patient at the bedside Patient's chart and medications reviewed Patient feels slightly better anxious to go home Physical therapy ,occupational therapy evaluating the patient Pending recommendations Patient has no new complaints Hospitalist Physical - Constitutional Vitals: Temp Pulse Resp BP Pulse Ox 100.4 F H 102 H 40 H 172/89 96 11/16/20 07:58 11/16/20 10:03 11/16/20 09:00 11/16/20 10:03 11/16/20 09:00 General appearance: Present: no acute distress, well-nourished, obese, other (Extubated) - EENT Eyes: Present: PERRL, EOM intact - Neck Neck: Present: supple, normal ROM - Respiratory Respiratory effort: normal Respiratory: bilateral: diminished, negative: rales, rhonchi, wheezing - Cardiovascular Rhythm: regular Heart Sounds: Present: S1 & S2 - Extremities Extremities: no ischemia, No edema - Abdominal General gastrointestinal: soft, non-tender, non-distended, normal bowel sounds - Integumentary Integumentary: Present: clear, warm - Psychiatric Psychiatric: appropriate mood/affect, cooperative - Neurologic Neurologic: moves all extremities HEART Score - HEART Score Troponin: Troponin T 0.873 ng/mL (0.00-0.029) H* D 11/09/20 23:05 Results - Labs CBC & Chem 7: 11/16/20 06:17 11/15/20 23:08 Labs: Laboratory Last Values WBC 13.4 K/mm3 (4.5-11.0) H 11/15/20 23:08 RBC 2.72 M/mm3 (3.65-5.03) L 11/15/20 23:08 Hgb 8.8 gm/dl (10.1-14.3) L 11/16/20 06:17 Hct 25.9 % (30.3-42.9) L 11/16/20 06:17 MCV 90 fl (79-97) 11/15/20 23:08 MCH 30 pg (28-32) 11/15/20 23:08 MCHC 34 % (30-34) 11/15/20 23:08 RDW 15.0 % (13.2-15.2) 11/15/20 23:08 Plt Count 239 K/mm3 (140-440) 11/16/20 06:17 Lymph % (Auto) 15.4 % (13.4-35.0) 11/13/20 02:11 [place] % (Auto) 8.9 % (0.0-7.3) H 11/13/20 02:11 Eos % (Auto) 1.5 % (0.0-4.3) 11/13/20 02:11 Baso % (Auto) 0.7 % (0.0-1.8) 11/13/20 02:11 Lymph # (Auto) 2.4 K/mm3 (1.2-5.4) 11/13/20 02:11 [place] # (Auto) 1.4 K/mm3 (0.0-0.8) H 11/13/20 02:11 Eos # (Auto) 0.2 K/mm3 (0.0-0.4) 11/13/20 02:11 Baso # (Auto) 0.1 K/mm3 (0.0-0.1) 11/13/20 02:11 Add Manual Diff Complete 11/10/20 04:28 Total Counted 100 11/10/20 04:28 Seg Neutrophils % 73.5 % (40.0-70.0) H 11/13/20 02:11 Seg Neuts % (Manual) 96.0 % (40.0-70.0) H 11/10/20 04:28 Lymphocytes % (Manual) 1.0 % (13.4-35.0) L 11/10/20 04:28 Monocytes % (Manual) 3.0 % (0.0-7.3) 11/10/20 04:28 Nucleated RBC % Not Reportable 11/10/20 04:28 Seg Neutrophils # 11.7 K/mm3 (1.8-7.7) H 11/13/20 02:11 Seg Neutrophils # Man 17.0 K/mm3 (1.8-7.7) H 11/10/20 04:28 Band Neutrophils # 0.0 K/mm3 11/10/20 04:28 Lymphocytes # (Manual) 0.2 K/mm3 (1.2-5.4) L 11/10/20 04:28 Abs React Lymphs (Man) 0.0 K/mm3 11/10/20 04:28 Monocytes # (Manual) 0.5 K/mm3 (0.0-0.8) 11/10/20 04:28 Eosinophils # (Manual) 0.0 K/mm3 (0.0-0.4) 11/10/20 04:28 Basophils # (Manual) 0.0 K/mm3 (0.0-0.1) 11/10/20 04:28 Metamyelocytes # 0.0 K/mm3 11/10/20 04:28 Myelocytes # 0.0 K/mm3 11/10/20 04:28 Promyelocytes # 0.0 K/mm3 11/10/20 04:28 Blast Cells # 0.0 K/mm3 11/10/20 04:28 WBC Morphology Not Reportable 11/10/20 04:28 Hypersegmented Neuts Not Reportable 11/10/20 04:28 Hyposegmented Neuts Not Reportable 11/10/20 04:28 Hypogranular Neuts Not Reportable 11/10/20 04:28 Smudge Cells Not Reportable 11/10/20 04:28 Toxic Granulation Not Reportable 11/10/20 04:28 Toxic Vacuolation Not Reportable 11/10/20 04:28 Dohle Bodies Not Reportable 11/10/20 04:28 Pelger-Huet Anomaly Not Reportable 11/10/20 04:28 Carmen Rods Not Reportable 11/10/20 04:28 Platelet Estimate Consistent w auto 11/10/20 04:28 Clumped Platelets Not Reportable 11/10/20 04:28 Plt Clumps, EDTA Not Reportable 11/10/20 04:28 Large Platelets Not Reportable 11/10/20 04:28 Giant Platelets Not Reportable 11/10/20 04:28 Platelet Satelliting Not Reportable 11/10/20 04:28 Plt Morphology Comment Not Reportable 11/10/20 04:28 RBC Morphology Not Reportable 11/10/20 04:28 Dimorphic RBCs Not Reportable 11/10/20 04:28 Polychromasia Not Reportable 11/10/20 04:28 Hypochromasia Not Reportable 11/10/20 04:28 Poikilocytosis Not Reportable 11/10/20 04:28 Anisocytosis 1+ 11/10/20 04:28 Microcytosis Not Reportable 11/10/20 04:28 Macrocytosis Not Reportable 11/10/20 04:28 Spherocytes Not Reportable 11/10/20 04:28 Pappenheimer Bodies Not Reportable 11/10/20 04:28 Sickle Cells Not Reportable 11/10/20 04:28 Target Cells Not Reportable 11/10/20 04:28 Tear Drop Cells Not Reportable 11/10/20 04:28 Ovalocytes Not Reportable 11/10/20 04:28 Helmet Cells Not Reportable 11/10/20 04:28 Lu-Meggett Bodies Not Reportable 11/10/20 04:28 [place] Rings Not Reportable 11/10/20 04:28 Randall Cells Not Reportable 11/10/20 04:28 Bite Cells Not Reportable 11/10/20 04:28 Crenated Cell Not Reportable 11/10/20 04:28 Elliptocytes Not Reportable 11/10/20 04:28 Acanthocytes (Spur) Not Reportable 11/10/20 04:28 Rouleaux Not Reportable 11/10/20 04:28 Hemoglobin C Crystals Not Reportable 11/10/20 04:28 Schistocytes Not Reportable 11/10/20 04:28 Malaria parasites Not Reportable 11/10/20 04:28 Vernon Bodies Not Reportable 11/10/20 04:28 Hem Pathologist Commnt No 11/10/20 04:28 PT 15.4 Sec. (12.2-14.9) H 11/15/20 23:08 INR 1.17 (0.87-1.13) H 11/15/20 23:08 APTT 52.0 Sec. (24.2-36.6) H 11/15/20 23:08 Fibrinogen 299 mg/dl (211-480) 11/10/20 15:08 D-Dimer > 06755 ng/mlDDU (0-234) H 11/10/20 04:28 Heparin Anti-Xa Level 0.12 U.I./ml (0.3-0.7) L 11/15/20 23:08 ABG pH 7.427 pH Units (7.350-7.450) 11/14/20 12:15 POC ABG pCO2 33.5 mmHg (32.0-48.0) 11/13/20 04:03 ABG pCO2 31.2 mm Hg 11/14/20 12:15 POC ABG pO2 145.7 mmHg (83-108) H 11/13/20 04:03 ABG pO2 94.7 mm Hg (80.0-90.0) H 11/14/20 12:15 POC ABG HCO3 17.9 11/13/20 04:03 ABG HCO3 20.1 mmol/L (20.0-26.0) 11/14/20 12:15 ABG O2 Saturation 97.6 % (95.0-99.0) 11/14/20 12:15 ABG O2 Content 12.5 (0.0-44) 11/13/20 21:22 POC ABG Base Excess -7.1 11/13/20 04:03 ABG Base Excess -3.7 mmol/L (-2.0-3.0) L 11/14/20 12:15 ABG Hemoglobin 8.3 gm/dl (12.0-16.0) L 11/14/20 12:15 ABG Oxyhemoglobin 97.8 (94-98) 11/13/20 04:03 ABG Carboxyhemoglobin 0.8 % (0.0-5.0) 11/14/20 12:15 ABG Methemoglobin 0.3 % (0.0-1.5) 11/14/20 12:15 ABG Sodium 135.3 mmol/L (136.0-145.0) L 11/13/20 04:03 ABG Potassium 3.7 mmol/L (3.40-4.50) 11/13/20 04:03 ABG Chloride 113.0 mmol/L (98-107) H 11/13/20 04:03 ABG Glucose 108 mg/dL (65-95) H 11/13/20 04:03 Oxyhemoglobin 96.5 % (95.0-99.0) 11/14/20 12:15 Carboxyhemoglobin 0.7 (0.5-1.5) 11/13/20 04:03 FiO2 25 % 11/14/20 12:15 FiO2 % 40.0 11/13/20 04:03 Sodium 141 mmol/L (137-145) 11/15/20 02:46 Potassium 3.5 mmol/L (3.6-5.0) L 11/15/20 02:46 Chloride 106.4 mmol/L (98-107) 11/15/20 02:46 Carbon Dioxide 17 mmol/L (22-30) L 11/15/20 02:46 Anion Gap 21 mmol/L 11/15/20 02:46 BUN 22 mg/dL (7-17) H 11/15/20 02:46 Creatinine 1.6 mg/dL (0.6-1.2) H 11/15/20 23:08 Estimated GFR 37 ml/min 11/15/20 23:08 BUN/Creatinine Ratio 13 % 11/15/20 02:46 Glucose 82 mg/dL (65-100) 11/15/20 02:46 POC Glucose 118 mg/dL (70-105) H 11/16/20 07:31 Lactic Acid 1.20 mmol/L (0.7-2.0) 11/11/20 23:20 Calcium 8.2 mg/dL (8.4-10.2) L 11/15/20 02:46 Phosphorus 3.40 mg/dL (2.5-4.5) D 11/15/20 02:46 Magnesium 2.10 mg/dL (1.7-2.3) 11/15/20 02:46 Total Bilirubin 0.50 mg/dL (0.1-1.2) 11/14/20 Unknown Direct Bilirubin < 0.2 mg/dL (0-0.2) 11/09/20 17:24 Indirect Bilirubin 0.1 mg/dL 11/09/20 17:24 AST 34 units/L (5-40) 11/14/20 Unknown ALT 88 units/L (7-56) H 11/14/20 Unknown Alkaline Phosphatase 110 units/L (35-129) 11/14/20 Unknown Lactate Dehydrogenase 1637 units/L (91-180) H 11/10/20 04:28 Total Creatine Kinase 449 units/L (30-135) H 11/09/20 23:05 CK-MB (CK-2) 18.4 ng/mL (0.0-4.0) H 11/09/20 23:05 CK-MB (CK-2) Rel Index 4.0 (0-4) 11/09/20 23:05 Troponin T 0.873 ng/mL (0.00-0.029) H* D 11/09/20 23:05 C-Reactive Protein 9.40 mg/dL (0.00-1.30) H 11/14/20 14:50 NT-Pro-B Natriuret Pep 1169 pg/mL (0-900) H 11/09/20 17:24 Total Protein 6.0 g/dL (6.3-8.2) L 11/14/20 Unknown Albumin 2.7 g/dL (3.9-5) L 11/14/20 Unknown Albumin/Globulin Ratio 0.8 % 11/14/20 Unknown Triglycerides 163 mg/dL (2-149) H 11/09/20 17:24 Cholesterol 118 mg/dL (50-199) 11/09/20 17:24 LDL Cholesterol Direct 72 mg/dL (50-130) 11/09/20 17:24 HDL Cholesterol 29 mg/dL (40-59) L 11/09/20 17:24 Cholesterol/HDL Ratio 4.06 % 11/09/20 17:24 Procalcitonin 9.69 ng/mL (<0.15) 11/10/20 04:28 Arterial Blood Glucose 108 mg/dL (65-95) H 11/13/20 04:03 Arterial Blood Ionized Calcium 4.3 mg/dL (4.6-5.3) L 11/13/20 04:03 Urine Color Straw (Yellow) 11/09/20 19:07 Urine Turbidity Clear (Clear) 11/09/20 19:07 Urine pH 7.0 (5.0-7.0) 11/09/20 19:07 Ur Specific [place] 1.003 (1.003-1.030) 11/09/20 19:07 Urine Protein <15 mg/dl mg/dL (Negative) 11/09/20 19:07 Urine Glucose (UA) Neg mg/dL (Negative) 11/09/20 19:07 Urine Ketones Neg mg/dL (Negative) 11/09/20 19:07 Urine Blood Mod (Negative) 11/09/20 19:07 Urine Nitrite Neg (Negative) 11/09/20 19:07 Urine Bilirubin Neg (Negative) 11/09/20 19:07 Urine Urobilinogen < 2.0 mg/dL (<2.0) 11/09/20 19:07 Ur Leukocyte Esterase Neg (Negative) 11/09/20 19:07 Urine WBC (Auto) 2.0 /HPF (0.0-6.0) 11/09/20 19:07 Urine RBC (Auto) 2.0 /HPF (0.0-6.0) 11/09/20 19:07 U Epithel Cells (Auto) 1.0 /HPF (0-13.0) 11/09/20 19:07 Urine Bacteria (Auto) 1+ /HPF (Negative) 11/09/20 19:07 Urine Creatinine 80.9 mg/dL (0.1-20.0) H 11/10/20 11:06 Urine Sodium 48 mmol/L 11/10/20 11:06 Urine Chloride 38.8 mmolL (110-250) L 11/10/20 11:06 Urine Opiates Screen Negative 11/09/20 19:07 Urine Methadone Screen Negative 11/09/20 19:07 Ur Barbiturates Screen Negative 11/09/20 19:07 Ur Phencyclidine Scrn Negative 11/09/20 19:07 Ur Amphetamines Screen Negative 11/09/20 19:07 U Benzodiazepines Scrn Negative 11/09/20 19:07 Urine Cocaine Screen Negative 11/09/20 19:07 U Marijuana (THC) Screen Negative 11/09/20 19:07 Drugs of Abuse Note Disclamer 11/09/20 19:07 Coronavirus (PCR) Negative (Negative) 11/10/20 Unknown Hepatitis A IgM Ab Nonreactive (NonReactive) 11/12/20 12:34 Hepatitis A Ab Total Nonreactive (Nonreactive) 11/12/20 12:34 Hep Bs Antigen Nonreactive (Negative) 11/12/20 12:34 Hepatitis C Antibody Nonreactive (NonReactive) 11/12/20 12:34 Blood Type O POSITIVE 11/09/20 17:24 Antibody Screen Negative 11/09/20 17:24 Crossmatch See Detail 11/09/20 17:24 Gonsalves/IV: Voiding Method Indwelling Catheter Active Medications - Current Medications Current Medications: Generic Name Dose Route Start Last Admin Trade Name Freq PRN Reason Stop Dose Admin Acetaminophen 650 mg 11/09/20 23:07 11/15/20 00:43 Acetaminophen 650 Mg Rect Supp NC 650 mg Q6H PRN Administration Pain MILD(1-3)/Fever >100.5/REYES Acetaminophen 650 mg 11/09/20 23:59 Acetaminophen 325 Mg Tab PO Q6H PRN Pain, Mild (1-3) Hydrocodone Bitart/Acetaminophen 2 each 11/09/20 23:59 Hydrocodone/Acetaminophen 5-325 Mg Tab PO Q6H PRN Pain, Moderate (4-6) Apixaban 10 mg 11/16/20 10:00 11/16/20 10:05 Apixaban 5 Mg Tab PO 11/22/20 22:01 10 mg Q12HR MELONY Administration Protocol Apixaban 5 mg 11/23/20 10:00 Apixaban 5 Mg Tab PO Q12HR MELONY Protocol Dextrose 50 ml 11/11/20 11:10 Dextrose 50% In Water (25gm) 50 Ml Syringe IV Q30MIN PRN Hypoglycemia Protocol Hydralazine HCl 25 mg 11/16/20 14:00 Hydralazine 25 Mg Tab PO Q8HR [facility] Hydralazine HCl 20 mg 11/16/20 10:53 Hydralazine 20 Mg/1 Ml Inj IV 11/16/20 10:54 ONCE ONE Hydralazine HCl 10 mg 11/16/20 10:53 Hydralazine 20 Mg/1 Ml Inj IV Q4HR PRN Hypertension Hydrophilic Ointment 1 applic 11/09/20 17:08 Lip Therapy Vaseline TP Q2H PRN Dry Lips NORepinephrine/NS 8 MG-250 ML 8 mg in 250 mls @ 3.75 mls/hr 11/09/20 18:00 11/12/20 23:59 Norepinephrine/Ns 8 Mg-250 Ml (Double Conc) IV 0 mcg/min TITRATE MELONY 0 mls/hr Titration Protocol 2 MCG/MIN Linezolid 600 mg in 300 mls @ 300 mls/hr 11/14/20 14:00 11/16/20 02:51 Zyvox 600mg/300ml IV 11/22/20 02:59 300 mls/hr Q12H MELONY Administration Protocol Insulin Human Regular 0 units 11/15/20 11:30 11/16/20 08:00 Insulin Regular, Human 100 Units/1 Ml SUB-Q Not Given ACHS [facility] Protocol Magnesium Hydroxide 30 ml 11/09/20 23:07 Magnesium Hydroxide (Mom) Oral Liqd Udc PO Q4H PRN Constipation Metoprolol Tartrate 50 mg 11/16/20 12:00 Metoprolol Tartrate 50 Mg Tab PO Q6HR [facility] Multi-Ingred Cream/Lotion/Oil/Oint 1 applic 11/09/20 17:08 Mineral Oil/Petrolatum, White Ophth Oint 3.5 Gm OU Q4H PRN Dry Eye(s) Ondansetron HCl 4 mg 11/09/20 23:07 Ondansetron 4 Mg/2 Ml Inj IV Q8H PRN Nausea And Vomiting Pantoprazole Sodium 40 mg 11/11/20 22:00 11/16/20 10:03 Pantoprazole 40 Mg Inj IV 40 mg BID MELONY Administration Senna/Docusate Sodium 1 tab 11/09/20 22:00 11/16/20 10:04 Sennosides/Docusate Sodium 8.6/50 Mg Tab FEEDTUBE Not Given BID MELONY Sodium Chloride 10 ml 11/10/20 10:00 11/16/20 10:04 Sodium Chloride 0.9% 10 Ml Flush Syringe IV 10 ml BID MELONY Administration Sodium Chloride 10 ml 11/09/20 23:07 Sodium Chloride 0.9% 10 Ml Flush Syringe IV PRN PRN LINE FLUSH Nutrition/Malnutrition Assess - Dietary Evaluation Nutrition/Malnutrition Findings: Nutrition Notes Start: 11/10/20 09:17 Freq: Status: Active Protocol: Document 11/14/20 13:58 GB (Rec: 11/14/20 14:07 GB [id number]) Nutrition Notes Initial or Follow up Reassessment Current Diagnosis CKD(stage I-IV),Hypertension Other Pertinent Diagnosis pneu, cardiopulmonary arrest, SIRS, acute diastolic heart failure Current Diet NPO, TF ordered Labs/Tests 11/14: K 3.3, BUN 22, creatinine 1.7, Ca 8.2, P 1.7, Mg 1.4, ALT 88 Pertinent Medications Fentanyl, Norepinephrine/Ns8 Mg250, heparin/NaCl, linezolid , KPhosphate/NaCl Height 5 ft 6 in Weight 80.966 kg [place] Body Weight (kg) 59.09 BMI 28.8 Weight change and time frame Stable for past week. Weight Status Overweight Subjective/Other Information 11/13: per chart: TF stopped, pt placed on LIS 11/14: Per Mechanical Vent note : extubated, now on nasal cannula 11/14: OGT changed to NGT, NG placement confirmed 11/14: per MD note: suspected calcified gallbladder Percent of energy/protein needs met: TF at goal meets 100% EEN. Burn Absent Trauma Absent GI Symptoms Other Difficulty In Swallowing Food Allergy No Skin Integrity/Comment no complications at this time. Current % PO Other Minimum of two criteria No #1 Nutrition Diagnosis Inadequate oral intake Comments: 11/11: vent continues, TF orders entered 11/14: extubated, OGT changed to NGT, TF orders continue Etiology ARF As Evidenced by Signs and Symptoms pt on vent and unable to consume PO Diagnosis Progress(for reassessment Improved documentation) Is patient on ventilator? No Is Patient Ambulatory and/or Out of Bed No REE-(Ness-St. Jeor-confined to bed) 1532.880 Kcal/Kg value to use for calculation 22 Approximate Energy Requirements Using 1781 kcal/Kg Calculation Used for Recommendations Kcal/kg Additional Notes Protein: (1-1.2g/kg @ 81kg) 81 -97g Fluid: 1 ml/kcal or per MD Nutrition Intervention Change Diet Order: Advance as able Nutrition Support: TF: Vital AF 1.2 at 50 ml/hr Kcal 1,440 Protein (gm) 90 Fluid (mL) 973 Goal #1 Diet advancement or TF start 11/11: TF orders entered Vital 1.2 AF @ 50ml/hr, flush 100ml/ 4hr 11/14: OGT changed to NGT, TF orders continue. Pt extubated Goal #2 TF at goal rate 50ml/hr and tolerated Follow-Up By: 11/19/20 Additional Comments f/u: Diet advanced, TF tolerance, at goal of 50ml/hr
[2020-11-16] MEDS: METOPROLOL TARTRATE 50 MG TAB PO SCH ×2 (11:29→17:55)
[2020-11-16] MEDS: hydrALAZINE 25 MG TAB PO SCH ×2 (14:13→22:31)
--- NOTE | 2020-11-16 15:05 | Progress Note ---
Assessment and Plan Acute hypoxemic respiratory failure Acute pulmonary embolism bilaterally Bilateral pulmonary infiltrates/pneumonia Cardiac arrest with ROSC [id number] kidney injury Oropharyngeal dysphagia HTN Shock (cardiogenic and hypovolemic) Chronic right bundle-branch block Arthritis Thrombocytopenia Coagulopathy Hypokalemia Severe metabolic acidosis Lactic acidosis Elevated serum transaminases Possible NSTEMI - discontinued prince catheter - advanced to Cardiac diet - complete Zyvox 600 mg IV q12h per ID recommendations (8 days) - continue aspiration precautions - continue care as below otherwise; - continue full anticoagulation for VTE - continue to trend H&H - continue to wean supplemental oxygen for target O2 sat's > 90% acutely - continue bronchodilators with pulmonary hygiene per RT - wean per pulmonary driven protocols otherwise - continue accuchecks with glycemic control per SSI for target blood glucose of < 180 mg/dL; avoid hypoglycemia - avoid nephrotoxins, renally dose all medications - continue to avoid benzodiazepine's, reduce the possibility of delirium - AB's per ID rec's - prn analgesia per pain score - Maintenance of sleep-wake cycle, avoid delirium - G.I. & VTE prophylaxis - PT/OT/ROM exercises - supportive transfusions for serum Hb < 7.0 - continue mobility protocols for pressure ulcer prophylaxis - Monitor hemodynamics closely - continue other care per attending / other consultants - discharge planning ongoing concurrently COVID SPECIFIC INTERVENTIONS - COVID-19 test negative .... Re-evaluate in am & prn ....... transfer to Telemetry Subjective Date of service: 11/16/20 Principal diagnosis: Ac. hypoxemic resp failure; P.E.; PNA; Cardiac arrest; TYLER; Shock Interval history: Patient is seen today for: Acute hypoxemic respiratory failure; Acute P.E.; Pneumonia; Cardiac arrest with ROSC; TYLER; Shock (cardiogenic and hypovolemic); T hrombocytopenia Seen and examined at bedside; 24hour events reviewed; nursing and respiratory care staff consulted; no adverse overnight events reported to me; resting in bed ; continues to do well; No N/V/F/C; chest wall pain is better Objective Vital Signs - 12hr 11/16/20 11/16/20 11/16/20 04:00 05:00 06:00 Temperature Pulse Rate 114 H 110 H 112 H Pulse Rate [ 89 From Monitor] Respiratory 50 H 36 H 20 Rate Respiratory Rate [Chest] Blood Pressure 169/91 177/87 166/82 O2 Sat by Pulse 97 98 96 Oximetry 11/16/20 11/16/20 11/16/20 07:00 07:58 08:00 Temperature 100.4 F H Pulse Rate 108 H 102 H Pulse Rate [ 102 H From Monitor] Respiratory 44 H 32 H Rate Respiratory 28 H Rate [Chest] Blood Pressure 156/75 144/76 O2 Sat by Pulse 95 94 Oximetry 11/16/20 11/16/20 11/16/20 09:00 10:00 10:03 Temperature Pulse Rate 103 H 100 H 102 H Pulse Rate [ From Monitor] Respiratory 40 H 34 H Rate Respiratory Rate [Chest] Blood Pressure 174/90 172/89 172/89 O2 Sat by Pulse 96 97 Oximetry 11/16/20 11/16/20 11/16/20 11:00 11:28 11:29 Temperature Pulse Rate 89 88 88 Pulse Rate [ From Monitor] Respiratory 44 H Rate Respiratory Rate [Chest] Blood Pressure 173/85 173/85 173/85 O2 Sat by Pulse 97 Oximetry 11/16/20 11/16/20 11/16/20 12:00 13:00 13:08 Temperature 99.8 F H Pulse Rate 82 82 Pulse Rate [ 88 From Monitor] Respiratory 30 H 37 H Rate Respiratory 32 H Rate [Chest] Blood Pressure 173/85 146/74 O2 Sat by Pulse 97 91 96 Oximetry 11/16/20 14:13 Temperature Pulse Rate 85 Pulse Rate [ From Monitor] Respiratory Rate Respiratory Rate [Chest] Blood Pressure 146/75 O2 Sat by Pulse Oximetry Constitutional: no acute distress, other (elderly obese female with mildly increased respiratory effort at rest) Eyes: non-icteric ENT: oropharynx moist Neck: supple, no lymphadenopathy, no JVD Effort: normal Ascultation: Bilateral: clear, diminished breath sounds Percussion: Bilateral: not dull Cardiovascular: regular rate and rhythm Gastrointestinal: normoactive bowel sounds, soft, non-tender, non-distended (protuberant) Integumentary: normal Extremities: no cyanosis, pulses normal, no ischemia or petechiae Neurologic: non-focal exam (grossly), pupils equal and round, CN II-XII normal, motor strength normal and (weak) Psychiatric: mood appropriate, affect normal CBC and BMP: 11/16/20 06:17 11/15/20 23:08 ABG, PT/INR, D-dimer: ABG ABG pH 7.427 pH Units (7.350-7.450) 11/14/20 12:15 POC ABG pCO2 33.5 mmHg (32.0-48.0) 11/13/20 04:03 ABG pCO2 31.2 mm Hg 11/14/20 12:15 POC ABG pO2 145.7 mmHg (83-108) H 11/13/20 04:03 ABG pO2 94.7 mm Hg (80.0-90.0) H 11/14/20 12:15 POC ABG HCO3 17.9 11/13/20 04:03 ABG O2 Saturation 97.6 % (95.0-99.0) 11/14/20 12:15 PT/INR, D-dimer PT 15.4 Sec. (12.2-14.9) H 11/15/20 23:08 INR 1.17 (0.87-1.13) H 11/15/20 23:08 D-Dimer > 51853 ng/mlDDU (0-234) H 11/10/20 04:28 Abnormal lab findings: Abnormal Labs 11/09/20 11/09/20 11/09/20 17:24 17:24 17:24 WBC RBC 3.29 L Hgb Hct Plt Count 100 L Lymph % (Auto) 54.6 H [place] % (Auto) [place] # (Auto) Seg Neutrophils % 38.5 L Seg Neuts % (Manual) Lymphocytes % (Manual) Seg Neutrophils # Seg Neutrophils # Man Lymphocytes # (Manual) PT 19.9 H INR 1.64 H APTT 49.2 H Fibrinogen D-Dimer > 73331 H Heparin Anti-Xa Level ABG pH POC ABG pO2 ABG pO2 ABG HCO3 ABG O2 Saturation ABG Base Excess ABG Hemoglobin ABG Oxyhemoglobin ABG Sodium ABG Potassium ABG Chloride ABG Glucose Oxyhemoglobin Carboxyhemoglobin Sodium Potassium 2.9 L* Chloride Carbon Dioxide 13 L BUN Creatinine 1.4 H Glucose 391 H POC Glucose Lactic Acid Calcium Phosphorus Magnesium AST ALT Lactate Dehydrogenase Total Creatine Kinase CK-MB (CK-2) 5.0 H CK-MB (CK-2) Rel Index 4.8 H Troponin T 0.263 H* C-Reactive Protein NT-Pro-B Natriuret Pep Total Protein Albumin Triglycerides 163 H HDL Cholesterol 29 L Arterial Blood Glucose Arterial Blood Ionized Calcium Urine Creatinine Urine Chloride Crossmatch 11/09/20 11/09/20 11/09/20 17:24 17:24 18:11 WBC RBC Hgb Hct Plt Count Lymph % (Auto) [place] % (Auto) [place] # (Auto) Seg Neutrophils % Seg Neuts % (Manual) Lymphocytes % (Manual) Seg Neutrophils # Seg Neutrophils # Man Lymphocytes # (Manual) PT INR APTT Fibrinogen D-Dimer Heparin Anti-Xa Level ABG pH POC ABG pO2 ABG pO2 ABG HCO3 ABG O2 Saturation ABG Base Excess ABG Hemoglobin ABG Oxyhemoglobin ABG Sodium ABG Potassium ABG Chloride ABG Glucose Oxyhemoglobin Carboxyhemoglobin Sodium Potassium Chloride Carbon Dioxide BUN Creatinine Glucose POC Glucose Lactic Acid 11.40 H* Calcium Phosphorus Magnesium AST 312 H ALT 273 H Lactate Dehydrogenase Total Creatine Kinase CK-MB (CK-2) CK-MB (CK-2) Rel Index Troponin T C-Reactive Protein NT-Pro-B Natriuret Pep 1169 H Total Protein 5.2 L Albumin 2.8 L Triglycerides HDL Cholesterol Arterial Blood Glucose Arterial Blood Ionized Calcium Urine Creatinine Urine Chloride Crossmatch See Detail 11/09/20 11/09/20 11/09/20 18:21 20:07 20:07 WBC RBC Hgb Hct Plt Count Lymph % (Auto) [place] % (Auto) [place] # (Auto) Seg Neutrophils % Seg Neuts % (Manual) Lymphocytes % (Manual) Seg Neutrophils # Seg Neutrophils # Man Lymphocytes # (Manual) PT INR APTT Fibrinogen D-Dimer Heparin Anti-Xa Level ABG pH 7.053 L POC ABG pO2 159.6 H ABG pO2 ABG HCO3 ABG O2 Saturation ABG Base Excess ABG Hemoglobin ABG Oxyhemoglobin ABG Sodium 135.1 L ABG Potassium ABG Chloride ABG Glucose 421 H Oxyhemoglobin Carboxyhemoglobin 0.3 L Sodium Potassium Chloride Carbon Dioxide BUN Creatinine Glucose POC Glucose Lactic Acid 9.00 H* Calcium Phosphorus Magnesium AST ALT Lactate Dehydrogenase Total Creatine Kinase 340 H CK-MB (CK-2) 14.2 H CK-MB (CK-2) Rel Index 4.1 H Troponin T 0.553 H* D C-Reactive Protein NT-Pro-B Natriuret Pep Total Protein Albumin Triglycerides HDL Cholesterol Arterial Blood Glucose 421 H Arterial Blood Ionized Calcium Urine Creatinine Urine Chloride Crossmatch 11/09/20 11/09/20 11/10/20 23:05 23:05 00:42 WBC RBC Hgb Hct Plt Count Lymph % (Auto) [place] % (Auto) [place] # (Auto) Seg Neutrophils % Seg Neuts % (Manual) Lymphocytes % (Manual) Seg Neutrophils # Seg Neutrophils # Man Lymphocytes # (Manual) PT 19.8 H INR 1.63 H APTT Fibrinogen 210 L D-Dimer Heparin Anti-Xa Level 0.79 H ABG pH POC ABG pO2 ABG pO2 ABG HCO3 ABG O2 Saturation ABG Base Excess ABG Hemoglobin ABG Oxyhemoglobin ABG Sodium ABG Potassium ABG Chloride ABG Glucose Oxyhemoglobin Carboxyhemoglobin Sodium Potassium Chloride Carbon Dioxide BUN Creatinine Glucose POC Glucose Lactic Acid 6.80 H* Calcium Phosphorus Magnesium AST ALT Lactate Dehydrogenase Total Creatine Kinase 449 H CK-MB (CK-2) 18.4 H CK-MB (CK-2) Rel Index Troponin T 0.873 H* D C-Reactive Protein NT-Pro-B Natriuret Pep Total Protein Albumin Triglycerides HDL Cholesterol Arterial Blood Glucose Arterial Blood Ionized Calcium Urine Creatinine Urine Chloride Crossmatch 11/10/20 11/10/20 11/10/20 04:28 04:28 04:28 WBC RBC Hgb Hct Plt Count Lymph % (Auto) [place] % (Auto) [place] # (Auto) Seg Neutrophils % Seg Neuts % (Manual) Lymphocytes % (Manual) Seg Neutrophils # Seg Neutrophils # Man Lymphocytes # (Manual) PT 20.3 H INR 1.69 H APTT Fibrinogen D-Dimer > 25815 H Heparin Anti-Xa Level ABG pH POC ABG pO2 ABG pO2 ABG HCO3 ABG O2 Saturation ABG Base Excess ABG Hemoglobin ABG Oxyhemoglobin ABG Sodium ABG Potassium ABG Chloride ABG Glucose Oxyhemoglobin Carboxyhemoglobin Sodium 136 L Potassium 3.3 L Chloride Carbon Dioxide 16 L BUN 21 H Creatinine 1.8 H Glucose 376 H POC Glucose Lactic Acid Calcium Phosphorus Magnesium AST ALT Lactate Dehydrogenase 1637 H Total Creatine Kinase CK-MB (CK-2) CK-MB (CK-2) Rel Index Troponin T C-Reactive Protein 3.50 H NT-Pro-B Natriuret Pep Total Protein Albumin Triglycerides HDL Cholesterol Arterial Blood Glucose Arterial Blood Ionized Calcium Urine Creatinine Urine Chloride Crossmatch 11/10/20 11/10/20 11/10/20 04:28 04:28 05:13 WBC 17.7 H RBC Hgb Hct Plt Count Lymph % (Auto) [place] % (Auto) [place] # (Auto) Seg Neutrophils % Seg Neuts % (Manual) 96.0 H Lymphocytes % (Manual) 1.0 L Seg Neutrophils # Seg Neutrophils # Man 17.0 H Lymphocytes # (Manual) 0.2 L PT INR APTT Fibrinogen D-Dimer Heparin Anti-Xa Level ABG pH 7.221 L POC ABG pO2 162.0 H ABG pO2 ABG HCO3 ABG O2 Saturation ABG Base Excess ABG Hemoglobin 11.7 L ABG Oxyhemoglobin 98.9 H ABG Sodium 133.6 L ABG Potassium 3.1 L ABG Chloride ABG Glucose 346 H Oxyhemoglobin Carboxyhemoglobin 0.1 L Sodium Potassium Chloride Carbon Dioxide BUN Creatinine Glucose POC Glucose Lactic Acid 6.10 H* Calcium Phosphorus Magnesium AST ALT Lactate Dehydrogenase Total Creatine Kinase CK-MB (CK-2) CK-MB (CK-2) Rel Index Troponin T C-Reactive Protein NT-Pro-B Natriuret Pep Total Protein Albumin Triglycerides HDL Cholesterol Arterial Blood Glucose 346 H Arterial Blood Ionized Calcium Urine Creatinine Urine Chloride Crossmatch 11/10/20 11/10/20 11/10/20 11:06 12:30 15:08 WBC 16.1 H RBC 3.20 L Hgb 9.7 L Hct 29.5 L Plt Count Lymph % (Auto) 7.4 L [place] % (Auto) 8.7 H [place] # (Auto) 1.4 H Seg Neutrophils % 83.7 H Seg Neuts % (Manual) Lymphocytes % (Manual) Seg Neutrophils # 13.5 H Seg Neutrophils # Man Lymphocytes # (Manual) PT 18.9 H INR 1.53 H APTT 204.8 H* Fibrinogen D-Dimer Heparin Anti-Xa Level 0.76 H ABG pH POC ABG pO2 ABG pO2 ABG HCO3 ABG O2 Saturation ABG Base Excess ABG Hemoglobin ABG Oxyhemoglobin ABG Sodium ABG Potassium ABG Chloride ABG Glucose Oxyhemoglobin Carboxyhemoglobin Sodium Potassium Chloride Carbon Dioxide BUN Creatinine Glucose POC Glucose Lactic Acid Calcium Phosphorus Magnesium AST ALT Lactate Dehydrogenase Total Creatine Kinase CK-MB (CK-2) CK-MB (CK-2) Rel Index Troponin T C-Reactive Protein NT-Pro-B Natriuret Pep Total Protein Albumin Triglycerides HDL Cholesterol Arterial Blood Glucose Arterial Blood Ionized Calcium Urine Creatinine 80.9 H Urine Chloride 38.8 L Crossmatch 11/10/20 11/10/20 11/10/20 15:08 17:17 18:25 WBC RBC Hgb Hct Plt Count Lymph % (Auto) [place] % (Auto) [place] # (Auto) Seg Neutrophils % Seg Neuts % (Manual) Lymphocytes % (Manual) Seg Neutrophils # Seg Neutrophils # Man Lymphocytes # (Manual) PT INR APTT Fibrinogen D-Dimer Heparin Anti-Xa Level ABG pH 7.206 L POC ABG pO2 ABG pO2 ABG HCO3 18.3 L ABG O2 Saturation ABG Base Excess -9.2 L ABG Hemoglobin 9.4 L ABG Oxyhemoglobin ABG Sodium ABG Potassium ABG Chloride ABG Glucose Oxyhemoglobin 94.3 L Carboxyhemoglobin Sodium Potassium Chloride Carbon Dioxide BUN Creatinine Glucose POC Glucose 200 H Lactic Acid 4.10 H* Calcium Phosphorus Magnesium AST ALT Lactate Dehydrogenase Total Creatine Kinase CK-MB (CK-2) CK-MB (CK-2) Rel Index Troponin T C-Reactive Protein NT-Pro-B Natriuret Pep Total Protein Albumin Triglycerides HDL Cholesterol Arterial Blood Glucose Arterial Blood Ionized Calcium Urine Creatinine Urine Chloride Crossmatch 11/10/20 11/10/20 11/10/20 19:54 20:21 21:13 WBC RBC Hgb 9.7 L Hct 28.4 L Plt Count Lymph % (Auto) [place] % (Auto) [place] # (Auto) Seg Neutrophils % Seg Neuts % (Manual) Lymphocytes % (Manual) Seg Neutrophils # Seg Neutrophils # Man Lymphocytes # (Manual) PT INR APTT Fibrinogen D-Dimer Heparin Anti-Xa Level 0.13 L ABG pH 7.297 L POC ABG pO2 ABG pO2 ABG HCO3 ABG O2 Saturation ABG Base Excess ABG Hemoglobin 7.3 L ABG Oxyhemoglobin ABG Sodium 135.6 L ABG Potassium ABG Chloride 111.0 H ABG Glucose 153 H Oxyhemoglobin Carboxyhemoglobin Sodium Potassium Chloride Carbon Dioxide BUN Creatinine Glucose POC Glucose Lactic Acid Calcium Phosphorus Magnesium AST ALT Lactate Dehydrogenase Total Creatine Kinase CK-MB (CK-2) CK-MB (CK-2) Rel Index Troponin T C-Reactive Protein NT-Pro-B Natriuret Pep Total Protein Albumin Triglycerides HDL Cholesterol Arterial Blood Glucose 153 H Arterial Blood Ionized Calcium Urine Creatinine Urine Chloride Crossmatch 11/10/20 11/11/20 11/11/20 23:30 04:12 04:35 WBC 16.0 H RBC 2.83 L Hgb 8.7 L Hct 25.8 L Plt Count Lymph % (Auto) [place] % (Auto) [place] # (Auto) Seg Neutrophils % Seg Neuts % (Manual) Lymphocytes % (Manual) Seg Neutrophils # Seg Neutrophils # Man Lymphocytes # (Manual) PT INR APTT Fibrinogen D-Dimer Heparin Anti-Xa Level 0.29 L ABG pH POC ABG pO2 ABG pO2 ABG HCO3 ABG O2 Saturation ABG Base Excess ABG Hemoglobin ABG Oxyhemoglobin ABG Sodium ABG Potassium ABG Chloride ABG Glucose Oxyhemoglobin Carboxyhemoglobin Sodium Potassium Chloride Carbon Dioxide BUN Creatinine Glucose POC Glucose 166 H Lactic Acid Calcium Phosphorus Magnesium AST ALT Lactate Dehydrogenase Total Creatine Kinase CK-MB (CK-2) CK-MB (CK-2) Rel Index Troponin T C-Reactive Protein NT-Pro-B Natriuret Pep Total Protein Albumin Triglycerides HDL Cholesterol Arterial Blood Glucose Arterial Blood Ionized Calcium Urine Creatinine Urine Chloride Crossmatch 11/11/20 11/11/20 11/11/20 04:35 05:00 05:01 WBC RBC Hgb Hct Plt Count Lymph % (Auto) [place] % (Auto) [place] # (Auto) Seg Neutrophils % Seg Neuts % (Manual) Lymphocytes % (Manual) Seg Neutrophils # Seg Neutrophils # Man Lymphocytes # (Manual) PT INR APTT Fibrinogen D-Dimer Heparin Anti-Xa Level ABG pH POC ABG pO2 ABG pO2 ABG HCO3 ABG O2 Saturation ABG Base Excess ABG Hemoglobin ABG Oxyhemoglobin ABG Sodium ABG Potassium ABG Chloride ABG Glucose Oxyhemoglobin Carboxyhemoglobin Sodium 136 L Potassium Chloride Carbon Dioxide 17 L BUN 25 H Creatinine 2.5 H Glucose 192 H POC Glucose 191 H Lactic Acid 2.20 H* Calcium 7.6 L Phosphorus Magnesium AST 232 H ALT 309 H Lactate Dehydrogenase Total Creatine Kinase CK-MB (CK-2) CK-MB (CK-2) Rel Index Troponin T C-Reactive Protein NT-Pro-B Natriuret Pep Total Protein 5.7 L Albumin 2.7 L Triglycerides HDL Cholesterol Arterial Blood Glucose Arterial Blood Ionized Calcium Urine Creatinine Urine Chloride Crossmatch 11/11/20 11/11/20 11/11/20 09:45 12:34 14:40 WBC RBC Hgb Hct Plt Count Lymph % (Auto) [place] % (Auto) [place] # (Auto) Seg Neutrophils % Seg Neuts % (Manual) Lymphocytes % (Manual) Seg Neutrophils # Seg Neutrophils # Man Lymphocytes # (Manual) PT INR APTT Fibrinogen D-Dimer Heparin Anti-Xa Level ABG pH POC ABG pO2 ABG pO2 172.4 H ABG HCO3 16.7 L ABG O2 Saturation 99.1 H ABG Base Excess -7.9 L ABG Hemoglobin 6.1 L ABG Oxyhemoglobin ABG Sodium ABG Potassium ABG Chloride ABG Glucose Oxyhemoglobin Carboxyhemoglobin Sodium Potassium Chloride Carbon Dioxide BUN Creatinine Glucose POC Glucose 141 H Lactic Acid 2.70 H* Calcium Phosphorus Magnesium AST ALT Lactate Dehydrogenase Total Creatine Kinase CK-MB (CK-2) CK-MB (CK-2) Rel Index Troponin T C-Reactive Protein NT-Pro-B Natriuret Pep Total Protein Albumin Triglycerides HDL Cholesterol Arterial Blood Glucose Arterial Blood Ionized Calcium Urine Creatinine Urine Chloride Crossmatch 11/11/20 11/11/20 11/11/20 17:06 21:00 23:20 WBC RBC Hgb 7.1 L Hct 20.9 L Plt Count Lymph % (Auto) [place] % (Auto) [place] # (Auto) Seg Neutrophils % Seg Neuts % (Manual) Lymphocytes % (Manual) Seg Neutrophils # Seg Neutrophils # Man Lymphocytes # (Manual) PT INR APTT Fibrinogen D-Dimer Heparin Anti-Xa Level ABG pH 7.287 L POC ABG pO2 ABG pO2 ABG HCO3 ABG O2 Saturation ABG Base Excess ABG Hemoglobin 7.5 L ABG Oxyhemoglobin ABG Sodium 134.1 L ABG Potassium ABG Chloride 110.0 H ABG Glucose 141 H Oxyhemoglobin Carboxyhemoglobin Sodium Potassium Chloride Carbon Dioxide BUN Creatinine Glucose POC Glucose 157 H Lactic Acid Calcium Phosphorus Magnesium AST ALT Lactate Dehydrogenase Total Creatine Kinase CK-MB (CK-2) CK-MB (CK-2) Rel Index Troponin T C-Reactive Protein NT-Pro-B Natriuret Pep Total Protein Albumin Triglycerides HDL Cholesterol Arterial Blood Glucose 141 H Arterial Blood Ionized Calcium 4.2 L Urine Creatinine Urine Chloride Crossmatch 11/11/20 11/12/20 11/12/20 23:30 04:26 04:26 WBC 16.8 H RBC 2.25 L Hgb 6.8 L Hct 20.5 L Plt Count Lymph % (Auto) [place] % (Auto) [place] # (Auto) Seg Neutrophils % Seg Neuts % (Manual) Lymphocytes % (Manual) Seg Neutrophils # Seg Neutrophils # Man Lymphocytes # (Manual) PT INR APTT Fibrinogen D-Dimer Heparin Anti-Xa Level ABG pH POC ABG pO2 ABG pO2 ABG HCO3 ABG O2 Saturation ABG Base Excess ABG Hemoglobin ABG Oxyhemoglobin ABG Sodium ABG Potassium ABG Chloride ABG Glucose Oxyhemoglobin Carboxyhemoglobin Sodium Potassium Chloride 110.1 H Carbon Dioxide 18 L BUN 25 H Creatinine 2.4 H Glucose 146 H POC Glucose 127 H Lactic Acid Calcium 7.4 L Phosphorus Magnesium AST ALT Lactate Dehydrogenase Total Creatine Kinase CK-MB (CK-2) CK-MB (CK-2) Rel Index Troponin T C-Reactive Protein NT-Pro-B Natriuret Pep Total Protein Albumin Triglycerides HDL Cholesterol Arterial Blood Glucose Arterial Blood Ionized Calcium Urine Creatinine Urine Chloride Crossmatch 11/12/20 11/12/20 11/12/20 04:26 06:01 12:02 WBC RBC Hgb Hct Plt Count Lymph % (Auto) [place] % (Auto) [place] # (Auto) Seg Neutrophils % Seg Neuts % (Manual) Lymphocytes % (Manual) Seg Neutrophils # Seg Neutrophils # Man Lymphocytes # (Manual) PT 17.6 H INR 1.40 H APTT 162.1 H* Fibrinogen D-Dimer Heparin Anti-Xa Level ABG pH POC ABG pO2 ABG pO2 ABG HCO3 ABG O2 Saturation ABG Base Excess ABG Hemoglobin ABG Oxyhemoglobin ABG Sodium ABG Potassium ABG Chloride ABG Glucose Oxyhemoglobin Carboxyhemoglobin Sodium Potassium Chloride Carbon Dioxide BUN Creatinine Glucose POC Glucose 134 H 131 H Lactic Acid Calcium Phosphorus Magnesium AST ALT Lactate Dehydrogenase Total Creatine Kinase CK-MB (CK-2) CK-MB (CK-2) Rel Index Troponin T C-Reactive Protein NT-Pro-B Natriuret Pep Total Protein Albumin Triglycerides HDL Cholesterol Arterial Blood Glucose Arterial Blood Ionized Calcium Urine Creatinine Urine Chloride Crossmatch 11/12/20 11/12/20 11/12/20 12:05 12:34 17:26 WBC RBC Hgb 6.8 L Hct 20.3 L Plt Count Lymph % (Auto) [place] % (Auto) [place] # (Auto) Seg Neutrophils % Seg Neuts % (Manual) Lymphocytes % (Manual) Seg Neutrophils # Seg Neutrophils # Man Lymphocytes # (Manual) PT INR APTT Fibrinogen D-Dimer Heparin Anti-Xa Level ABG pH 7.297 L POC ABG pO2 ABG pO2 ABG HCO3 ABG O2 Saturation ABG Base Excess ABG Hemoglobin 7.3 L ABG Oxyhemoglobin ABG Sodium 135.6 L ABG Potassium ABG Chloride 111.0 H ABG Glucose 153 H Oxyhemoglobin Carboxyhemoglobin Sodium Potassium Chloride Carbon Dioxide BUN Creatinine Glucose POC Glucose 119 H Lactic Acid Calcium Phosphorus Magnesium AST ALT Lactate Dehydrogenase Total Creatine Kinase CK-MB (CK-2) CK-MB (CK-2) Rel Index Troponin T C-Reactive Protein NT-Pro-B Natriuret Pep Total Protein Albumin Triglycerides HDL Cholesterol Arterial Blood Glucose 153 H Arterial Blood Ionized Calcium Urine Creatinine Urine Chloride Crossmatch 11/12/20 11/13/20 11/13/20 23:49 02:11 02:11 WBC 15.9 H RBC 2.38 L Hgb 7.1 L Hct 21.3 L Plt Count Lymph % (Auto) [place] % (Auto) 8.9 H [place] # (Auto) 1.4 H Seg Neutrophils % 73.5 H Seg Neuts % (Manual) Lymphocytes % (Manual) Seg Neutrophils # 11.7 H Seg Neutrophils # Man Lymphocytes # (Manual) PT INR APTT Fibrinogen D-Dimer Heparin Anti-Xa Level ABG pH POC ABG pO2 ABG pO2 ABG HCO3 ABG O2 Saturation ABG Base Excess ABG Hemoglobin ABG Oxyhemoglobin ABG Sodium ABG Potassium ABG Chloride ABG Glucose Oxyhemoglobin Carboxyhemoglobin Sodium Potassium Chloride 109.8 H Carbon Dioxide 18 L BUN 26 H Creatinine 2.3 H Glucose 109 H POC Glucose 118 H Lactic Acid Calcium 7.7 L Phosphorus Magnesium AST ALT Lactate Dehydrogenase Total Creatine Kinase CK-MB (CK-2) CK-MB (CK-2) Rel Index Troponin T C-Reactive Protein NT-Pro-B Natriuret Pep Total Protein Albumin Triglycerides HDL Cholesterol Arterial Blood Glucose Arterial Blood Ionized Calcium Urine Creatinine Urine Chloride Crossmatch 11/13/20 11/13/20 11/13/20 04:03 06:01 07:50 WBC RBC Hgb 7.7 L Hct 23.3 L Plt Count Lymph % (Auto) [place] % (Auto) [place] # (Auto) Seg Neutrophils % Seg Neuts % (Manual) Lymphocytes % (Manual) Seg Neutrophils # Seg Neutrophils # Man Lymphocytes # (Manual) PT INR APTT Fibrinogen D-Dimer Heparin Anti-Xa Level ABG pH POC ABG pO2 145.7 H ABG pO2 ABG HCO3 ABG O2 Saturation ABG Base Excess ABG Hemoglobin 7.2 L ABG Oxyhemoglobin ABG Sodium 135.3 L ABG Potassium ABG Chloride 113.0 H ABG Glucose 108 H Oxyhemoglobin Carboxyhemoglobin Sodium Potassium Chloride Carbon Dioxide BUN Creatinine Glucose POC Glucose 108 H Lactic Acid Calcium Phosphorus Magnesium AST ALT Lactate Dehydrogenase Total Creatine Kinase CK-MB (CK-2) CK-MB (CK-2) Rel Index Troponin T C-Reactive Protein NT-Pro-B Natriuret Pep Total Protein Albumin Triglycerides HDL Cholesterol Arterial Blood Glucose 108 H Arterial Blood Ionized Calcium 4.3 L Urine Creatinine Urine Chloride Crossmatch 11/13/20 11/13/20 11/13/20 12:00 14:30 17:10 WBC RBC Hgb 7.5 L Hct 22.6 L Plt Count Lymph % (Auto) [place] % (Auto) [place] # (Auto) Seg Neutrophils % Seg Neuts % (Manual) Lymphocytes % (Manual) Seg Neutrophils # Seg Neutrophils # Man Lymphocytes # (Manual) PT INR APTT Fibrinogen D-Dimer Heparin Anti-Xa Level ABG pH POC ABG pO2 ABG pO2 ABG HCO3 ABG O2 Saturation ABG Base Excess ABG Hemoglobin ABG Oxyhemoglobin ABG Sodium ABG Potassium ABG Chloride ABG Glucose Oxyhemoglobin Carboxyhemoglobin Sodium Potassium Chloride Carbon Dioxide BUN Creatinine Glucose POC Glucose 147 H 110 H Lactic Acid Calcium Phosphorus Magnesium AST ALT Lactate Dehydrogenase Total Creatine Kinase CK-MB (CK-2) CK-MB (CK-2) Rel Index Troponin T C-Reactive Protein NT-Pro-B Natriuret Pep Total Protein Albumin Triglycerides HDL Cholesterol Arterial Blood Glucose Arterial Blood Ionized Calcium Urine Creatinine Urine Chloride Crossmatch 11/13/20 11/14/20 11/14/20 21:22 12:15 14:50 WBC RBC Hgb Hct Plt Count Lymph % (Auto) [place] % (Auto) [place] # (Auto) Seg Neutrophils % Seg Neuts % (Manual) Lymphocytes % (Manual) Seg Neutrophils # Seg Neutrophils # Man Lymphocytes # (Manual) PT INR APTT Fibrinogen D-Dimer Heparin Anti-Xa Level 0.10 L ABG pH POC ABG pO2 ABG pO2 97.2 H 94.7 H ABG HCO3 18.6 L ABG O2 Saturation ABG Base Excess -6.1 L -3.7 L ABG Hemoglobin 9.2 L 8.3 L ABG Oxyhemoglobin ABG Sodium ABG Potassium ABG Chloride ABG Glucose Oxyhemoglobin Carboxyhemoglobin Sodium Potassium Chloride Carbon Dioxide BUN Creatinine Glucose POC Glucose Lactic Acid Calcium Phosphorus Magnesium AST ALT Lactate Dehydrogenase Total Creatine Kinase CK-MB (CK-2) CK-MB (CK-2) Rel Index Troponin T C-Reactive Protein NT-Pro-B Natriuret Pep Total Protein Albumin Triglycerides HDL Cholesterol Arterial Blood Glucose Arterial Blood Ionized Calcium Urine Creatinine Urine Chloride Crossmatch 11/14/20 11/14/20 11/14/20 14:50 17:53 Unknown WBC 15.9 H RBC 2.61 L Hgb 7.8 L Hct 23.1 L Plt Count Lymph % (Auto) [place] % (Auto) [place] # (Auto) Seg Neutrophils % Seg Neuts % (Manual) Lymphocytes % (Manual) Seg Neutrophils # Seg Neutrophils # Man Lymphocytes # (Manual) PT INR APTT Fibrinogen D-Dimer Heparin Anti-Xa Level ABG pH POC ABG pO2 ABG pO2 ABG HCO3 ABG O2 Saturation ABG Base Excess ABG Hemoglobin ABG Oxyhemoglobin ABG Sodium ABG Potassium ABG Chloride ABG Glucose Oxyhemoglobin Carboxyhemoglobin Sodium Potassium Chloride Carbon Dioxide BUN Creatinine Glucose POC Glucose 113 H Lactic Acid Calcium Phosphorus Magnesium AST ALT Lactate Dehydrogenase Total Creatine Kinase CK-MB (CK-2) CK-MB (CK-2) Rel Index Troponin T C-Reactive Protein 9.40 H NT-Pro-B Natriuret Pep Total Protein Albumin Triglycerides HDL Cholesterol Arterial Blood Glucose Arterial Blood Ionized Calcium Urine Creatinine Urine Chloride Crossmatch 11/14/20 11/15/20 11/15/20 Unknown 00:10 02:46 WBC 15.2 H RBC 2.83 L Hgb 8.7 L Hct 25.6 L Plt Count Lymph % (Auto) [place] % (Auto) [place] # (Auto) Seg Neutrophils % Seg Neuts % (Manual) Lymphocytes % (Manual) Seg Neutrophils # Seg Neutrophils # Man Lymphocytes # (Manual) PT INR APTT Fibrinogen D-Dimer Heparin Anti-Xa Level 0.18 L ABG pH POC ABG pO2 ABG pO2 ABG HCO3 ABG O2 Saturation ABG Base Excess ABG Hemoglobin ABG Oxyhemoglobin ABG Sodium ABG Potassium ABG Chloride ABG Glucose Oxyhemoglobin Carboxyhemoglobin Sodium Potassium 3.3 L Chloride 107.8 H Carbon Dioxide 18 L BUN 22 H Creatinine 1.7 H Glucose POC Glucose Lactic Acid Calcium 8.2 L Phosphorus 1.70 L Magnesium 1.40 L AST ALT 88 H Lactate Dehydrogenase Total Creatine Kinase CK-MB (CK-2) CK-MB (CK-2) Rel Index Troponin T C-Reactive Protein NT-Pro-B Natriuret Pep Total Protein 6.0 L Albumin 2.7 L Triglycerides HDL Cholesterol Arterial Blood Glucose Arterial Blood Ionized Calcium Urine Creatinine Urine Chloride Crossmatch 11/15/20 11/15/20 11/15/20 02:46 06:36 08:20 WBC RBC Hgb Hct Plt Count Lymph % (Auto) [place] % (Auto) [place] # (Auto) Seg Neutrophils % Seg Neuts % (Manual) Lymphocytes % (Manual) Seg Neutrophils # Seg Neutrophils # Man Lymphocytes # (Manual) PT INR APTT Fibrinogen D-Dimer Heparin Anti-Xa Level 0.12 L ABG pH POC ABG pO2 ABG pO2 ABG HCO3 ABG O2 Saturation ABG Base Excess ABG Hemoglobin ABG Oxyhemoglobin ABG Sodium ABG Potassium ABG Chloride ABG Glucose Oxyhemoglobin Carboxyhemoglobin Sodium Potassium 3.5 L Chloride Carbon Dioxide 17 L BUN 22 H Creatinine 1.7 H Glucose POC Glucose 107 H Lactic Acid Calcium 8.2 L Phosphorus Magnesium AST ALT Lactate Dehydrogenase Total Creatine Kinase CK-MB (CK-2) CK-MB (CK-2) Rel Index Troponin T C-Reactive Protein NT-Pro-B Natriuret Pep Total Protein Albumin Triglycerides HDL Cholesterol Arterial Blood Glucose Arterial Blood Ionized Calcium Urine Creatinine Urine Chloride Crossmatch 11/15/20 11/15/20 11/15/20 11:35 15:56 16:06 WBC RBC Hgb Hct Plt Count Lymph % (Auto) [place] % (Auto) [place] # (Auto) Seg Neutrophils % Seg Neuts % (Manual) Lymphocytes % (Manual) Seg Neutrophils # Seg Neutrophils # Man Lymphocytes # (Manual) PT INR APTT Fibrinogen D-Dimer Heparin Anti-Xa Level 0.14 L ABG pH POC ABG pO2 ABG pO2 ABG HCO3 ABG O2 Saturation ABG Base Excess ABG Hemoglobin ABG Oxyhemoglobin ABG Sodium ABG Potassium ABG Chloride ABG Glucose Oxyhemoglobin Carboxyhemoglobin Sodium Potassium Chloride Carbon Dioxide BUN Creatinine Glucose POC Glucose 145 H 118 H Lactic Acid Calcium Phosphorus Magnesium AST ALT Lactate Dehydrogenase Total Creatine Kinase CK-MB (CK-2) CK-MB (CK-2) Rel Index Troponin T C-Reactive Protein NT-Pro-B Natriuret Pep Total Protein Albumin Triglycerides HDL Cholesterol Arterial Blood Glucose Arterial Blood Ionized Calcium Urine Creatinine Urine Chloride Crossmatch 11/15/20 11/15/20 11/15/20 23:08 23:08 23:08 WBC 13.4 H RBC 2.72 L Hgb 8.3 L Hct 24.4 L Plt Count Lymph % (Auto) [place] % (Auto) [place] # (Auto) Seg Neutrophils % Seg Neuts % (Manual) Lymphocytes % (Manual) Seg Neutrophils # Seg Neutrophils # Man Lymphocytes # (Manual) PT 15.4 H INR 1.17 H APTT 52.0 H Fibrinogen D-Dimer Heparin Anti-Xa Level 0.12 L ABG pH POC ABG pO2 ABG pO2 ABG HCO3 ABG O2 Saturation ABG Base Excess ABG Hemoglobin ABG Oxyhemoglobin ABG Sodium ABG Potassium ABG Chloride ABG Glucose Oxyhemoglobin Carboxyhemoglobin Sodium Potassium Chloride Carbon Dioxide BUN Creatinine Glucose POC Glucose Lactic Acid Calcium Phosphorus Magnesium AST ALT Lactate Dehydrogenase Total Creatine Kinase CK-MB (CK-2) CK-MB (CK-2) Rel Index Troponin T C-Reactive Protein NT-Pro-B Natriuret Pep Total Protein Albumin Triglycerides HDL Cholesterol Arterial Blood Glucose Arterial Blood Ionized Calcium Urine Creatinine Urine Chloride Crossmatch 11/15/20 11/15/20 11/16/20 23:08 23:32 05:14 WBC RBC Hgb Hct Plt Count Lymph % (Auto) [place] % (Auto) [place] # (Auto) Seg Neutrophils % Seg Neuts % (Manual) Lymphocytes % (Manual) Seg Neutrophils # Seg Neutrophils # Man Lymphocytes # (Manual) PT INR APTT Fibrinogen D-Dimer Heparin Anti-Xa Level ABG pH POC ABG pO2 ABG pO2 ABG HCO3 ABG O2 Saturation ABG Base Excess ABG Hemoglobin ABG Oxyhemoglobin ABG Sodium ABG Potassium ABG Chloride ABG Glucose Oxyhemoglobin Carboxyhemoglobin Sodium Potassium Chloride Carbon Dioxide BUN Creatinine 1.6 H Glucose POC Glucose 120 H 141 H Lactic Acid Calcium Phosphorus Magnesium AST ALT Lactate Dehydrogenase Total Creatine Kinase CK-MB (CK-2) CK-MB (CK-2) Rel Index Troponin T C-Reactive Protein NT-Pro-B Natriuret Pep Total Protein Albumin Triglycerides HDL Cholesterol Arterial Blood Glucose Arterial Blood Ionized Calcium Urine Creatinine Urine Chloride Crossmatch 11/16/20 11/16/20 11/16/20 06:17 07:31 11:45 WBC RBC Hgb 8.8 L Hct 25.9 L Plt Count Lymph % (Auto) [place] % (Auto) [place] # (Auto) Seg Neutrophils % Seg Neuts % (Manual) Lymphocytes % (Manual) Seg Neutrophils # Seg Neutrophils # Man Lymphocytes # (Manual) PT INR APTT Fibrinogen D-Dimer Heparin Anti-Xa Level ABG pH POC ABG pO2 ABG pO2 ABG HCO3 ABG O2 Saturation ABG Base Excess ABG Hemoglobin ABG Oxyhemoglobin ABG Sodium ABG Potassium ABG Chloride ABG Glucose Oxyhemoglobin Carboxyhemoglobin Sodium Potassium Chloride Carbon Dioxide BUN Creatinine Glucose POC Glucose 118 H 118 H Lactic Acid Calcium Phosphorus Magnesium AST ALT Lactate Dehydrogenase Total Creatine Kinase CK-MB (CK-2) CK-MB (CK-2) Rel Index Troponin T C-Reactive Protein NT-Pro-B Natriuret Pep Total Protein Albumin Triglycerides HDL Cholesterol Arterial Blood Glucose Arterial Blood Ionized Calcium Urine Creatinine Urine Chloride Crossmatch Allied health notes reviewed: nursing
--- NOTE | 2020-11-16 19:13 | Event Note ---
Date: 11/15/20 I spoke with patient's daughter Ms. Raza Pizarro and 2 other siblings at [phone], I discussed extensively with all the details of patient's condition, tests and reports, consultants recommendation, her improvement, extubation and discharge planning issues.They had many questions answered all of them And encouraged them to call back if they have any new concerns. They were appreciative of my call.
[2020-11-17] MEDS: METOPROLOL TARTRATE 50 MG TAB PO SCH ×2 (00:13→06:16)
[2020-11-17] MEDS: LINEZOLID 600 MG/300 ML BAG IV SCH ×2 (01:46→20:08)
[2020-11-17 06:05] LABS: Hematocrit 25.5 % (30.3-42.9); Hemoglobin 8.5 gm/dl (10.1-14.3); Mean Corpuscular HGB Conc 33 % (30-34); Mean Corpuscular Volume 90 fl (79-97); Platelet Count 256 K/mm3 (140-440); Red Blood Count 2.85 M/mm3 (3.65-5.03); Red Cell Distribution Width 15.5 % (13.2-15.2)
[2020-11-17] MEDS: hydrALAZINE 25 MG TAB PO SCH (06:16)
[2020-11-17] MEDS: INSULIN REGULAR, HUMAN 100 UNITS/1 ML SUB-Q SCH ×4 (08:19→21:55)
[2020-11-17] MEDS: METOPROLOL TARTRATE 100 MG TAB PO SCH ×3 (09:10→20:06)
[2020-11-17] MEDS: HYDROcodone/ACETAMINOPHEN 5-325 MG TAB PO PRN (10:46)
[2020-11-17] MEDS: SENNOSIDES/DOCUSATE SODIUM 8.6/50 MG TAB FEEDTUBE SCH ×2 (10:46→21:50)
[2020-11-17] MEDS: PANTOPRAZOLE 40 MG INJ IV SCH ×2 (10:46→21:49)
[2020-11-17] MEDS: dilTIAZem 60 MG TAB PO SCH ×3 (10:46→20:07)
[2020-11-17] MEDS: APIXABAN 5 MG TAB PO SCH ×2 (10:46→21:49)
--- NOTE | 2020-11-17 11:35 | Progress Note ---
Assessment and Plan - Patient Problems (1) Acute kidney injury Current Visit: Yes Status: Acute Plan to address problem: Likely pre-renal injury in the setting of acute b/l PE with cor pulmonale and right sided heart failure. Renal function improving, cont gentle IV hydration. Avoid nephrotoxins. Renal US showed no evidence of obstructive uropathy, b/l echogenic kidneys seen. (2) Acute pulmonary embolism with acute cor pulmonale Current Visit: Yes Status: Acute Qualifiers: Pulmonary embolism type: saddle Qualified Code(s): I26.02 - Saddle embolus of pulmonary artery with acute cor pulmonale Plan to address problem: s/p pulmonary angiography and placement of b/l thrombolytics catheter placement by vascular surgery. Follow up further recommendations from cardiology. Unclear etiology of b/l PE. (3) Cardiopulmonary arrest Current Visit: Yes Status: Resolved Plan to address problem: On multiple pressor support. Intubated, sedated. Further recommendations per cardiology. (4) Hypokalemia Current Visit: Yes Status: Acute Plan to address problem: cont IV KCl supplementation to target K > 4 Subjective Date of service: 11/17/20 Principal diagnosis: Ac. hypoxemic resp failure; P.E.; PNA; Cardiac arrest; TYLER; Shock Interval history: Pt is awake, alert in no acute respiratory distress Objective - Vital Signs Vital signs: Vital Signs - 12hr 11/17/20 11/17/20 11/17/20 00:00 00:10 00:13 Temperature 99.3 F Pulse Rate 97 H 96 H 96 H Respiratory 44 H 17 Rate Blood Pressure 167/84 167/84 O2 Sat by Pulse 97 96 Oximetry 11/17/20 11/17/20 11/17/20 00:20 00:30 04:53 Temperature 97.9 F Pulse Rate 94 H 86 Respiratory 29 H 20 Rate Blood Pressure 167/84 167/84 184/83 O2 Sat by Pulse 96 96 98 Oximetry 11/17/20 11/17/20 08:06 08:18 Temperature 97.6 F Pulse Rate 76 76 Respiratory 20 Rate Blood Pressure 134/64 O2 Sat by Pulse 100 100 Oximetry - General Appearance General appearance: well-developed, well-nourished, appears stated age EENT: ATNC, PERRL, mucous membranes moist Neck: no JVD Respiratory: Present: Clear to Ascultation Cardiology: regular, S1S2 Gastrointestinal: normoactive bowel sounds Integumentary: no rash Neurologic: no focal deficit - Lab 11/17/20 04:48 11/15/20 23:08 Most recent lab results ABG pH 7.427 pH Units (7.350-7.450) 11/14/20 12:15 ABG pCO2 31.2 mm Hg 11/14/20 12:15 ABG pO2 94.7 mm Hg (80.0-90.0) H 11/14/20 12:15 ABG HCO3 20.1 mmol/L (20.0-26.0) 11/14/20 12:15 ABG O2 Saturation 97.6 % (95.0-99.0) 11/14/20 12:15 Calcium 8.2 mg/dL (8.4-10.2) L 11/15/20 02:46 Phosphorus 3.40 mg/dL (2.5-4.5) D 11/15/20 02:46 Magnesium 2.10 mg/dL (1.7-2.3) 11/15/20 02:46 Urine Creatinine 80.9 mg/dL (0.1-20.0) H 11/10/20 11:06 Urine Sodium 48 mmol/L 11/10/20 11:06 Medications & Allergies - Medications Allergies/Adverse Reactions: Allergies No Known Allergies Allergy (Verified 11/09/20 17:19) Active Medications: Generic Name Dose Route Start Last Admin Trade Name Freq PRN Reason Stop Dose Admin Acetaminophen 650 mg 11/09/20 23:07 11/15/20 00:43 Acetaminophen 650 Mg Rect Supp SC 650 mg Q6H PRN Administration Pain MILD(1-3)/Fever >100.5/REYES Acetaminophen 650 mg 11/09/20 23:59 Acetaminophen 325 Mg Tab PO Q6H PRN Pain, Mild (1-3) Hydrocodone Bitart/Acetaminophen 2 each 11/09/20 23:59 11/17/20 10:46 Hydrocodone/Acetaminophen 5-325 Mg Tab PO 2 each Q6H PRN Administration Pain, Moderate (4-6) Apixaban 10 mg 11/16/20 10:00 11/17/20 10:46 Apixaban 5 Mg Tab PO 11/22/20 22:01 10 mg Q12HR MELONY Administration Protocol Apixaban 5 mg 11/23/20 10:00 Apixaban 5 Mg Tab PO Q12HR MELONY Protocol Dextrose 50 ml 11/11/20 11:10 Dextrose 50% In Water (25gm) 50 Ml Syringe IV Q30MIN PRN Hypoglycemia Protocol Diltiazem HCl 60 mg 11/17/20 09:00 11/17/20 10:46 Diltiazem 60 Mg Tab PO 60 mg Q6H MELONY Administration Hydrophilic Ointment 1 applic 11/09/20 17:08 Lip Therapy Vaseline TP Q2H PRN Dry Lips NORepinephrine/NS 8 MG-250 ML 8 mg in 250 mls @ 3.75 mls/hr 11/09/20 18:00 11/12/20 23:59 Norepinephrine/Ns 8 Mg-250 Ml (Double Conc) IV 0 mcg/min TITRATE MELONY 0 mls/hr Titration Protocol 2 MCG/MIN Linezolid 600 mg in 300 mls @ 300 mls/hr 11/14/20 14:00 11/17/20 01:46 Zyvox 600mg/300ml IV 11/22/20 02:59 300 mls/hr Q12H MELONY Administration Protocol Insulin Human Regular 0 units 11/15/20 11:30 11/16/20 21:42 Insulin Regular, Human 100 Units/1 Ml SUB-Q Not Given ACHS MELONY Protocol Magnesium Hydroxide 30 ml 11/09/20 23:07 Magnesium Hydroxide (Mom) Oral Liqd Udc PO Q4H PRN Constipation Metoprolol Tartrate 100 mg 11/17/20 09:00 Metoprolol Tartrate 100 Mg Tab PO TID MELONY Multi-Ingred Cream/Lotion/Oil/Oint 1 applic 11/09/20 17:08 Mineral Oil/Petrolatum, White Ophth Oint 3.5 Gm OU Q4H PRN Dry Eye(s) Ondansetron HCl 4 mg 11/09/20 23:07 Ondansetron 4 Mg/2 Ml Inj IV Q8H PRN Nausea And Vomiting Pantoprazole Sodium 40 mg 11/11/20 22:00 11/17/20 10:46 Pantoprazole 40 Mg Inj IV 40 mg BID MELONY Administration Senna/Docusate Sodium 1 tab 11/09/20 22:00 11/17/20 10:46 Sennosides/Docusate Sodium 8.6/50 Mg Tab FEEDTUBE 1 tab BID MELONY Administration Sodium Chloride 10 ml 11/10/20 10:00 11/17/20 10:47 Sodium Chloride 0.9% 10 Ml Flush Syringe IV 10 ml BID MELONY Administration Sodium Chloride 10 ml 11/09/20 23:07 Sodium Chloride 0.9% 10 Ml Flush Syringe IV PRN PRN LINE FLUSH
--- NOTE | 2020-11-17 13:02 | Progress Note ---
Assessment and Plan Assessment and plan: This 84-year-old female with HTN, CKD, chronic right BBB, arthritis admitted s/P cardiac arrest, pulmonary embolism , Pneumonia and GI bleed Patient is clinically stable for discharge Awaiting PT and OT evaluation and recommendation Discharge planning per case management Neuro: Acute metabolic encephalopathy -CT head completed which shows no acute intracranial abnormality, probable meningioma along the right anterior frontal lobe -Avoid delirium -Patient is awake, follows commands, positive track/focus, pupils equal round reactive -Neurology consulted, appreciate recommendations -Per neurology obtain MRI with [place] when possible Cardio: S/p cardiopulmonary arrest, atrial fibrillation, acute diastolic heart failure -Cardiology consulted, appreciate recommendations -Echo 11/10/2020-EF 50 to 55%, right ventricular systolic function is normal, right ventricle is mildly dilated, left atrium not well visualized, mild mitral regurgitation, moderate pulmonary hypertension -Vasopressor support with Levophed -s/p dopamine and dobutamine with IVF -Blood pressure monitoring per protocol -started on metoprolol 12.5 BID -As needed hydralazine Respiratory: Acute hypoxic respiratory failure, acute pulmonary medicine with acute cor pulmonale -[facility] consulted, appreciate recommendations -Intubated 11/09 with 7.0 at 22 at the lip-> extuabted 11/14 -Placed on NC -Pulmonary hygiene GI: Upper GI hemorrhage, elevated LFTs -GI consulted, appreciate recommendations -s/p Protonix drip and now on Protonix IV BID -Hepatic serologies negative, hepatic panel negative -Per GI will reassess for EGD if patient develops severe GI bleeding -BR: Senokot -24-hour net balance -127 -Trend LFT -Gastric occult positive -passed bedside swallow eval -CLD, advance as tolerated : Acute kidney injury, metabolic acidosis -Nephrology consulted, appreciate recommendations -Likely prerenal injury in setting of acute bilateral pulmonary embolism with cor pulmonale and right-sided heart failure -Gentle IV hydration -Renal ultrasound showed no evidence of obstructive PE, bilateral echogenic kidneys -No indication for renal replacement at this time per nephrology -Urine electrolytes -Strict intake and output -Daily weights -Avoid nephrotoxic medications -Trend BMP ID: Bilateral pneumonia, SIRS, lactic acidosis -Empiric antibiotics with Rocephin and azithromycin (11/09-11/13) -Monitor fever and WBC curve -CXR noted with worsening bilateral airspace disease -Tracheal aspirate with MRSA -ID consulted -started on ziovox Heme: Large bilateral segmental and subsegmental PE, thrombocytopenia, coagulopathy, anemia, Left LE DVT -Vascular surgery consulted, appreciate recommendations -S/p pulmonary angiography with placement of thrombolytic catheters -Heparin drip -Transfuse for hemoglobin less than 7 -Trend CBC -S/p 1 unit PRBC -monitor for bleeding Endo: NAD -Accucheck q6 -Avoid hypoglycemia We will closely monitor patient and adjust management as needed Plan of care reviewed with the patient and her nurse, discussed with pulmonary critical History Interval history: This is a 84-year-old female with HTN, CKD, chronic RBBB, arthritis who presented to the emergency department on 11/09 from the department With valuation of difficulty breathing and shortness of breath. Upon arrival to the emergency department patient was actively unresponsive and positive pressure ventilation was started and subsequently had a cardiac arrest with eventual ROSC. Work-up emergency department revealed elevated D-dimer of greater than 10,000, elevated lactic acid, CTA showed bilateral segmental and subsegmental emboli with right heart strain, bibasilar airspace consolidation and trace right pleural effusion compatible with pneumonia. Vascular surgery was consulted for thrombolysis. Patient was admitted to the hospitalist service with consults to CCM, cardiology, nephrology and gastroenterology. 11/10: Patient seen and examined this morning review of her electrolytes shows some abnormalities with noted worsening renal failure in the setting of hypotension. Noted A. fib on EKG. Patient remains on EKOS system. Will obtain cardiology and nephrology evaluation. Echocardiogram to further evaluate condition of the heart in the setting of her cardiac arrest. Patient remains a PUI Covid testing is pending. Discussed with paste up worker this morning may consider changing from dopamine to dobutamine but will await cardiology evaluation. Possible further hydration in the setting of underlying right heart failure. I did discuss with the family who are not aware of any renal problems in the past. Ventilator management per tool lapper hand. Closely monitor leukocytosis no fever noted at this time. I will replace potassium as noted hypokalemia Discussed with family the two daughters in detail 11/11: Patient is having blood-tinged secretions while suctioning, NG tube to dark secretions, gastric occult sent. PICC line ordered to be placed. Car diology to change dopamine to dobutamine and start normal saline. No plans for hemodialysis per nephrology. 11/12: CPAP trial, PICC placement today and will remove femoral line after placement. No indication for renal replacement per nephrology. BLE doppler US per vascular. 11/13: Patient tolerating CPAP trial, per neurology consider MRI brain with Manuel, patient has staph areas in tracheal aspirate, appropriate response to PRBC, remains off vasopressors, worsening renal function. 11/14: Patient was extubated today, hypokalemia/hypomagnesemia/hypophosphatemia treated with K-Phos. Improvement to renal function noted. Patient passed bedside swallow and ordered a diet. Tracheal aspirate with MRSA-> Zyvox every 12 and ID consulted 11/15; PT, OT requested, will transition heparin drip to Eliquis with the morning dose tomorrow Mild hypokalemia, corrected with KCl, other electrolytes normal range, discussed with tool lapper hand Dr. Wagner I spoke with patient's daughter Raza Pizarro and 2 other siblings at [phone] I discussed extensively with all the details of patient's condition, tests and reports, consultants recommendation, her dramatic improvement, extubation and discharge planning issues. They had many questions answered all of them And encouraged them to call back if they have any new concerns. They were appreciative of my call 11/16; PT and OT are evaluating the patient, have not completed the recommendations DC planning per case management 11/17; patient is medically stable Pending PT and OT evaluation and recommendations Discharge planning per case management History Interval history: I seen and examined the patient at the bedside Patient's chart and medications reviewed Patient has no new complaints Vital signs Hospitalist Physical - Constitutional Vitals: Temp Pulse Resp BP Pulse Ox 97.6 F 76 20 134/64 100 11/17/20 08:06 11/17/20 08:18 11/17/20 08:06 11/17/20 08:06 11/17/20 08:18 General appearance: Present: no acute distress, well-nourished, obese, other (Extubated) - EENT Eyes: Present: PERRL, EOM intact - Neck Neck: Present: supple, normal ROM - Respiratory Respiratory effort: normal Respiratory: bilateral: diminished, negative: rales, rhonchi, wheezing - Cardiovascular Rhythm: regular Heart Sounds: Present: S1 & S2 - Extremities Extremities: no ischemia, No edema - Abdominal General gastrointestinal: soft, non-tender, non-distended, normal bowel sounds - Integumentary Integumentary: Present: clear, warm - Psychiatric Psychiatric: appropriate mood/affect, cooperative - Neurologic Neurologic: CNII-XII intact, moves all extremities HEART Score - HEART Score Troponin: Troponin T 0.873 ng/mL (0.00-0.029) H* D 11/09/20 23:05 Results - Labs CBC & Chem 7: 11/17/20 04:48 11/15/20 23:08 Labs: Laboratory Last Values WBC 14.2 K/mm3 (4.5-11.0) H 11/17/20 04:48 RBC 2.85 M/mm3 (3.65-5.03) L 11/17/20 04:48 Hgb 8.5 gm/dl (10.1-14.3) L 11/17/20 04:48 Hct 25.5 % (30.3-42.9) L 11/17/20 04:48 MCV 90 fl (79-97) 11/17/20 04:48 MCH 30 pg (28-32) 11/17/20 04:48 MCHC 33 % (30-34) 11/17/20 04:48 RDW 15.5 % (13.2-15.2) H 11/17/20 04:48 Plt Count 256 K/mm3 (140-440) 11/17/20 04:48 Lymph % (Auto) 15.4 % (13.4-35.0) 11/13/20 02:11 [place] % (Auto) 8.9 % (0.0-7.3) H 11/13/20 02:11 Eos % (Auto) 1.5 % (0.0-4.3) 11/13/20 02:11 Baso % (Auto) 0.7 % (0.0-1.8) 11/13/20 02:11 Lymph # (Auto) 2.4 K/mm3 (1.2-5.4) 11/13/20 02:11 [place] # (Auto) 1.4 K/mm3 (0.0-0.8) H 11/13/20 02:11 Eos # (Auto) 0.2 K/mm3 (0.0-0.4) 11/13/20 02:11 Baso # (Auto) 0.1 K/mm3 (0.0-0.1) 11/13/20 02:11 Add Manual Diff Complete 11/10/20 04:28 Total Counted 100 11/10/20 04:28 Seg Neutrophils % 73.5 % (40.0-70.0) H 11/13/20 02:11 Seg Neuts % (Manual) 96.0 % (40.0-70.0) H 11/10/20 04:28 Lymphocytes % (Manual) 1.0 % (13.4-35.0) L 11/10/20 04:28 Monocytes % (Manual) 3.0 % (0.0-7.3) 11/10/20 04:28 Nucleated RBC % Not Reportable 11/10/20 04:28 Seg Neutrophils # 11.7 K/mm3 (1.8-7.7) H 11/13/20 02:11 Seg Neutrophils # Man 17.0 K/mm3 (1.8-7.7) H 11/10/20 04:28 Band Neutrophils # 0.0 K/mm3 11/10/20 04:28 Lymphocytes # (Manual) 0.2 K/mm3 (1.2-5.4) L 11/10/20 04:28 Abs React Lymphs (Man) 0.0 K/mm3 11/10/20 04:28 Monocytes # (Manual) 0.5 K/mm3 (0.0-0.8) 11/10/20 04:28 Eosinophils # (Manual) 0.0 K/mm3 (0.0-0.4) 11/10/20 04:28 Basophils # (Manual) 0.0 K/mm3 (0.0-0.1) 11/10/20 04:28 Metamyelocytes # 0.0 K/mm3 11/10/20 04:28 Myelocytes # 0.0 K/mm3 11/10/20 04:28 Promyelocytes # 0.0 K/mm3 11/10/20 04:28 Blast Cells # 0.0 K/mm3 11/10/20 04:28 WBC Morphology Not Reportable 11/10/20 04:28 Hypersegmented Neuts Not Reportable 11/10/20 04:28 Hyposegmented Neuts Not Reportable 11/10/20 04:28 Hypogranular Neuts Not Reportable 11/10/20 04:28 Smudge Cells Not Reportable 11/10/20 04:28 Toxic Granulation Not Reportable 11/10/20 04:28 Toxic Vacuolation Not Reportable 11/10/20 04:28 Dohle Bodies Not Reportable 11/10/20 04:28 Pelger-Huet Anomaly Not Reportable 11/10/20 04:28 Carmen Rods Not Reportable 11/10/20 04:28 Platelet Estimate Consistent w auto 11/10/20 04:28 Clumped Platelets Not Reportable 11/10/20 04:28 Plt Clumps, EDTA Not Reportable 11/10/20 04:28 Large Platelets Not Reportable 11/10/20 04:28 Giant Platelets Not Reportable 11/10/20 04:28 Platelet Satelliting Not Reportable 11/10/20 04:28 Plt Morphology Comment Not Reportable 11/10/20 04:28 RBC Morphology Not Reportable 11/10/20 04:28 Dimorphic RBCs Not Reportable 11/10/20 04:28 Polychromasia Not Reportable 11/10/20 04:28 Hypochromasia Not Reportable 11/10/20 04:28 Poikilocytosis Not Reportable 11/10/20 04:28 Anisocytosis 1+ 11/10/20 04:28 Microcytosis Not Reportable 11/10/20 04:28 Macrocytosis Not Reportable 11/10/20 04:28 Spherocytes Not Reportable 11/10/20 04:28 Pappenheimer Bodies Not Reportable 11/10/20 04:28 Sickle Cells Not Reportable 11/10/20 04:28 Target Cells Not Reportable 11/10/20 04:28 Tear Drop Cells Not Reportable 11/10/20 04:28 Ovalocytes Not Reportable 11/10/20 04:28 Helmet Cells Not Reportable 11/10/20 04:28 Lu-Lynch Bodies Not Reportable 11/10/20 04:28 Belcher Rings Not Reportable 11/10/20 04:28 Randall Cells Not Reportable 11/10/20 04:28 Bite Cells Not Reportable 11/10/20 04:28 Crenated Cell Not Reportable 11/10/20 04:28 Elliptocytes Not Reportable 11/10/20 04:28 Acanthocytes (Spur) Not Reportable 11/10/20 04:28 Rouleaux Not Reportable 11/10/20 04:28 Hemoglobin C Crystals Not Reportable 11/10/20 04:28 Schistocytes Not Reportable 11/10/20 04:28 Malaria parasites Not Reportable 11/10/20 04:28 Vernon Bodies Not Reportable 11/10/20 04:28 Hem Pathologist Commnt No 11/10/20 04:28 PT 15.4 Sec. (12.2-14.9) H 11/15/20 23:08 INR 1.17 (0.87-1.13) H 11/15/20 23:08 APTT 52.0 Sec. (24.2-36.6) H 11/15/20 23:08 Fibrinogen 299 mg/dl (211-480) 11/10/20 15:08 D-Dimer > 55539 ng/mlDDU (0-234) H 11/10/20 04:28 Heparin Anti-Xa Level 0.12 U.I./ml (0.3-0.7) L 11/15/20 23:08 ABG pH 7.427 pH Units (7.350-7.450) 11/14/20 12:15 POC ABG pCO2 33.5 mmHg (32.0-48.0) 11/13/20 04:03 ABG pCO2 31.2 mm Hg 11/14/20 12:15 POC ABG pO2 145.7 mmHg (83-108) H 11/13/20 04:03 ABG pO2 94.7 mm Hg (80.0-90.0) H 11/14/20 12:15 POC ABG HCO3 17.9 11/13/20 04:03 ABG HCO3 20.1 mmol/L (20.0-26.0) 11/14/20 12:15 ABG O2 Saturation 97.6 % (95.0-99.0) 11/14/20 12:15 ABG O2 Content 12.5 (0.0-44) 11/13/20 21:22 POC ABG Base Excess -7.1 11/13/20 04:03 ABG Base Excess -3.7 mmol/L (-2.0-3.0) L 11/14/20 12:15 ABG Hemoglobin 8.3 gm/dl (12.0-16.0) L 11/14/20 12:15 ABG Oxyhemoglobin 97.8 (94-98) 11/13/20 04:03 ABG Carboxyhemoglobin 0.8 % (0.0-5.0) 11/14/20 12:15 ABG Methemoglobin 0.3 % (0.0-1.5) 11/14/20 12:15 ABG Sodium 135.3 mmol/L (136.0-145.0) L 11/13/20 04:03 ABG Potassium 3.7 mmol/L (3.40-4.50) 11/13/20 04:03 ABG Chloride 113.0 mmol/L (98-107) H 11/13/20 04:03 ABG Glucose 108 mg/dL (65-95) H 11/13/20 04:03 Oxyhemoglobin 96.5 % (95.0-99.0) 11/14/20 12:15 Carboxyhemoglobin 0.7 (0.5-1.5) 11/13/20 04:03 FiO2 25 % 11/14/20 12:15 FiO2 % 40.0 11/13/20 04:03 Sodium 141 mmol/L (137-145) 11/15/20 02:46 Potassium 3.5 mmol/L (3.6-5.0) L 11/15/20 02:46 Chloride 106.4 mmol/L (98-107) 11/15/20 02:46 Carbon Dioxide 17 mmol/L (22-30) L 11/15/20 02:46 Anion Gap 21 mmol/L 11/15/20 02:46 BUN 22 mg/dL (7-17) H 11/15/20 02:46 Creatinine 1.6 mg/dL (0.6-1.2) H 11/15/20 23:08 Estimated GFR 37 ml/min 11/15/20 23:08 BUN/Creatinine Ratio 13 % 11/15/20 02:46 Glucose 82 mg/dL (65-100) 11/15/20 02:46 POC Glucose 132 mg/dL (70-105) H 11/16/20 21:24 Lactic Acid 1.20 mmol/L (0.7-2.0) 11/11/20 23:20 Calcium 8.2 mg/dL (8.4-10.2) L 11/15/20 02:46 Phosphorus 3.40 mg/dL (2.5-4.5) D 11/15/20 02:46 Magnesium 2.10 mg/dL (1.7-2.3) 11/15/20 02:46 Total Bilirubin 0.50 mg/dL (0.1-1.2) 11/14/20 Unknown Direct Bilirubin < 0.2 mg/dL (0-0.2) 11/09/20 17:24 Indirect Bilirubin 0.1 mg/dL 11/09/20 17:24 AST 34 units/L (5-40) 11/14/20 Unknown ALT 88 units/L (7-56) H 11/14/20 Unknown Alkaline Phosphatase 110 units/L (35-129) 11/14/20 Unknown Lactate Dehydrogenase 1637 units/L (91-180) H 11/10/20 04:28 Total Creatine Kinase 449 units/L (30-135) H 11/09/20 23:05 CK-MB (CK-2) 18.4 ng/mL (0.0-4.0) H 11/09/20 23:05 CK-MB (CK-2) Rel Index 4.0 (0-4) 11/09/20 23:05 Troponin T 0.873 ng/mL (0.00-0.029) H* D 11/09/20 23:05 C-Reactive Protein 9.40 mg/dL (0.00-1.30) H 11/14/20 14:50 NT-Pro-B Natriuret Pep 1169 pg/mL (0-900) H 11/09/20 17:24 Total Protein 6.0 g/dL (6.3-8.2) L 11/14/20 Unknown Albumin 2.7 g/dL (3.9-5) L 11/14/20 Unknown Albumin/Globulin Ratio 0.8 % 11/14/20 Unknown Triglycerides 163 mg/dL (2-149) H 11/09/20 17:24 Cholesterol 118 mg/dL (50-199) 11/09/20 17:24 LDL Cholesterol Direct 72 mg/dL (50-130) 11/09/20 17:24 HDL Cholesterol 29 mg/dL (40-59) L 11/09/20 17:24 Cholesterol/HDL Ratio 4.06 % 11/09/20 17:24 Procalcitonin 0.92 ng/mL (<0.15) 11/14/20 14:50 Arterial Blood Glucose 108 mg/dL (65-95) H 11/13/20 04:03 Arterial Blood Ionized Calcium 4.3 mg/dL (4.6-5.3) L 11/13/20 04:03 Urine Color Straw (Yellow) 11/09/20 19:07 Urine Turbidity Clear (Clear) 11/09/20 19:07 Urine pH 7.0 (5.0-7.0) 11/09/20 19:07 Ur Specific [place] 1.003 (1.003-1.030) 11/09/20 19:07 Urine Protein <15 mg/dl mg/dL (Negative) 11/09/20 19:07 Urine Glucose (UA) Neg mg/dL (Negative) 11/09/20 19:07 Urine Ketones Neg mg/dL (Negative) 11/09/20 19:07 Urine Blood Mod (Negative) 11/09/20 19:07 Urine Nitrite Neg (Negative) 11/09/20 19:07 Urine Bilirubin Neg (Negative) 11/09/20 19:07 Urine Urobilinogen < 2.0 mg/dL (<2.0) 11/09/20 19:07 Ur Leukocyte Esterase Neg (Negative) 11/09/20 19:07 Urine WBC (Auto) 2.0 /HPF (0.0-6.0) 11/09/20 19:07 Urine RBC (Auto) 2.0 /HPF (0.0-6.0) 11/09/20 19:07 U Epithel Cells (Auto) 1.0 /HPF (0-13.0) 11/09/20 19:07 Urine Bacteria (Auto) 1+ /HPF (Negative) 11/09/20 19:07 Urine Creatinine 80.9 mg/dL (0.1-20.0) H 11/10/20 11:06 Urine Sodium 48 mmol/L 11/10/20 11:06 Urine Chloride 38.8 mmolL (110-250) L 11/10/20 11:06 Urine Opiates Screen Negative 11/09/20 19:07 Urine Methadone Screen Negative 11/09/20 19:07 Ur Barbiturates Screen Negative 11/09/20 19:07 Ur Phencyclidine Scrn Negative 11/09/20 19:07 Ur Amphetamines Screen Negative 11/09/20 19:07 U Benzodiazepines Scrn Negative 11/09/20 19:07 Urine Cocaine Screen Negative 11/09/20 19:07 U Marijuana (THC) Screen Negative 11/09/20 19:07 Drugs of Abuse Note Disclamer 11/09/20 19:07 Coronavirus (PCR) Negative (Negative) 11/10/20 Unknown Hepatitis A IgM Ab Nonreactive (NonReactive) 11/12/20 12:34 Hepatitis A Ab Total Nonreactive (Nonreactive) 11/12/20 12:34 Hep Bs Antigen Nonreactive (Negative) 11/12/20 12:34 Hepatitis C Antibody Nonreactive (NonReactive) 11/12/20 12:34 Blood Type O POSITIVE 11/09/20 17:24 Antibody Screen Negative 11/09/20 17:24 Crossmatch See Detail 11/09/20 17:24 Gonsalves/IV: Voiding Method External Female Catheter Active Medications - Current Medications Current Medications: Generic Name Dose Route Start Last Admin Trade Name Freq PRN Reason Stop Dose Admin Acetaminophen 650 mg 11/09/20 23:07 11/15/20 00:43 Acetaminophen 650 Mg Rect Supp IA 650 mg Q6H PRN Administration Pain MILD(1-3)/Fever >100.5/REYES Acetaminophen 650 mg 11/09/20 23:59 Acetaminophen 325 Mg Tab PO Q6H PRN Pain, Mild (1-3) Hydrocodone Bitart/Acetaminophen 2 each 11/09/20 23:59 11/17/20 10:46 Hydrocodone/Acetaminophen 5-325 Mg Tab PO 2 each Q6H PRN Administration Pain, Moderate (4-6) Apixaban 10 mg 11/16/20 10:00 11/17/20 10:46 Apixaban 5 Mg Tab PO 11/22/20 22:01 10 mg Q12HR MELONY Administration Protocol Apixaban 5 mg 11/23/20 10:00 Apixaban 5 Mg Tab PO Q12HR MELONY Protocol Dextrose 50 ml 11/11/20 11:10 Dextrose 50% In Water (25gm) 50 Ml Syringe IV Q30MIN PRN Hypoglycemia Protocol Diltiazem HCl 60 mg 11/17/20 09:00 11/17/20 10:46 Diltiazem 60 Mg Tab PO 60 mg Q6H MELONY Administration Hydrophilic Ointment 1 applic 11/09/20 17:08 Lip Therapy Vaseline TP Q2H PRN Dry Lips NORepinephrine/NS 8 MG-250 ML 8 mg in 250 mls @ 3.75 mls/hr 11/09/20 18:00 11/12/20 23:59 Norepinephrine/Ns 8 Mg-250 Ml (Double Conc) IV 0 mcg/min TITRATE MELONY 0 mls/hr Titration Protocol 2 MCG/MIN Linezolid 600 mg in 300 mls @ 300 mls/hr 11/14/20 14:00 11/17/20 01:46 Zyvox 600mg/300ml IV 11/22/20 02:59 300 mls/hr Q12H MELONY Administration Protocol Insulin Human Regular 0 units 11/15/20 11:30 11/16/20 21:42 Insulin Regular, Human 100 Units/1 Ml SUB-Q Not Given ACHS MELONY Protocol Magnesium Hydroxide 30 ml 11/09/20 23:07 Magnesium Hydroxide (Mom) Oral Liqd Udc PO Q4H PRN Constipation Metoprolol Tartrate 100 mg 11/17/20 09:00 Metoprolol Tartrate 100 Mg Tab PO TID MELONY Multi-Ingred Cream/Lotion/Oil/Oint 1 applic 11/09/20 17:08 Mineral Oil/Petrolatum, White Ophth Oint 3.5 Gm OU Q4H PRN Dry Eye(s) Ondansetron HCl 4 mg 11/09/20 23:07 Ondansetron 4 Mg/2 Ml Inj IV Q8H PRN Nausea And Vomiting Pantoprazole Sodium 40 mg 11/11/20 22:00 11/17/20 10:46 Pantoprazole 40 Mg Inj IV 40 mg BID MELONY Administration Senna/Docusate Sodium 1 tab 11/09/20 22:00 11/17/20 10:46 Sennosides/Docusate Sodium 8.6/50 Mg Tab FEEDTUBE 1 tab BID MELONY Administration Sodium Chloride 10 ml 11/10/20 10:00 11/17/20 10:47 Sodium Chloride 0.9% 10 Ml Flush Syringe IV 10 ml BID MELONY Administration Sodium Chloride 10 ml 11/09/20 23:07 Sodium Chloride 0.9% 10 Ml Flush Syringe IV PRN PRN LINE FLUSH Nutrition/Malnutrition Assess - Dietary Evaluation Nutrition/Malnutrition Findings: Nutrition Notes Start: 11/10/20 09:17 Freq: Status: Active Protocol: Document 11/14/20 13:58 GB (Rec: 11/14/20 14:07 GB [id number]) Nutrition Notes Initial or Follow up Reassessment Current Diagnosis CKD(stage I-IV),Hypertension Other Pertinent Diagnosis pneu, cardiopulmonary arrest, SIRS, acute diastolic heart failure Current Diet NPO, TF ordered Labs/Tests 11/14: K 3.3, BUN 22, creatinine 1.7, Ca 8.2, P 1.7, Mg 1.4, ALT 88 Pertinent Medications Fentanyl, Norepinephrine/Ns8 Mg250, heparin/NaCl, linezolid , KPhosphate/NaCl Height 5 ft 6 in Weight 80.966 kg [place] Body Weight (kg) 59.09 BMI 28.8 Weight change and time frame Stable for past week. Weight Status Overweight Subjective/Other Information 11/13: per chart: TF stopped, pt placed on LIS 11/14: Per Mechanical Vent note : extubated, now on nasal cannula 11/14: OGT changed to NGT, NG placement confirmed 11/14: per MD note: suspected calcified gallbladder Percent of energy/protein needs met: TF at goal meets 100% EEN. Burn Absent Trauma Absent GI Symptoms Other Difficulty In Swallowing Food Allergy No Skin Integrity/Comment no complications at this time. Current % PO Other Minimum of two criteria No #1 Nutrition Diagnosis Inadequate oral intake Comments: 11/11: vent continues, TF orders entered 11/14: extubated, OGT changed to NGT, TF orders continue Etiology ARF As Evidenced by Signs and Symptoms pt on vent and unable to consume PO Diagnosis Progress(for reassessment Improved documentation) Is patient on ventilator? No Is Patient Ambulatory and/or Out of Bed No REE-([facility]-confined to bed) 1532.880 Kcal/Kg value to use for calculation 22 Approximate Energy Requirements Using 1781 kcal/Kg Calculation Used for Recommendations Kcal/kg Additional Notes Protein: (1-1.2g/kg @ 81kg) 81 -97g Fluid: 1 ml/kcal or per Nutrition Intervention Change Diet Order: Advance as able Nutrition Support: TF: Vital AF 1.2 at 50 ml/hr Kcal 1,440 Protein (gm) 90 Fluid (mL) 973 Goal #1 Diet advancement or TF start 11/11: TF orders entered Vital 1.2 AF @ 50ml/hr, flush 100ml/ 4hr 11/14: OGT changed to NGT, TF orders continue. Pt extubated Goal #2 TF at goal rate 50ml/hr and tolerated Follow-Up By: 11/19/20 Additional Comments f/u: Diet advanced, TF tolerance, at goal of 50ml/hr
--- NOTE | 2020-11-17 16:48 | Progress Note ---
Assessment and Plan Increase metoprolol dose and add diltiazem for better BP and HR control. - Patient Problems (1) Acute massive pulmonary embolism Current Visit: Yes Status: Acute (2) Cardiopulmonary arrest Current Visit: Yes Status: Resolved (3) Acute respiratory failure with hypoxia Current Visit: Yes Status: Resolved (4) Paroxysmal atrial fibrillation with RVR Current Visit: Yes Status: Acute (5) Non-STEMI (non-ST elevated myocardial infarction) Current Visit: Yes Status: Acute (6) Upper GI bleed Current Visit: Yes Status: Acute (7) Acute kidney injury Current Visit: Yes Status: Acute (8) Anemia Current Visit: Yes Status: Acute (9) Hypertension Current Visit: Yes Status: Chronic Qualifiers: Hypertension type: primary hypertension Qualified Code(s): I10 - Essential (primary) hypertension Subjective Date of service: 11/17/20 Principal diagnosis: Ac. hypoxemic resp failure; P.E.; PNA; Cardiac arrest; TYLER; Shock Interval history: She complains of some numbness in her fingers. She is in normal sinus rhythm. Objective Vital Signs Temp Pulse Pulse Resp BP Pulse Ox 11/17/20 15:33 98.3 F 71 20 102/49 100 11/17/20 14:00 102/49 11/17/20 08:18 76 100 11/17/20 08:06 97.6 F 76 20 134/64 100 11/17/20 04:53 97.9 F 86 20 184/83 98 11/17/20 00:30 167/84 96 11/17/20 00:20 94 H 29 H 167/84 96 11/17/20 00:13 96 H 11/17/20 00:10 96 H 17 167/84 96 11/17/20 00:00 99.3 F 97 H 44 H 167/84 97 11/16/20 23:00 94 H 33 H 169/53 91 11/16/20 22:00 164/63 90 11/16/20 21:13 96 11/16/20 21:00 86 38 H 157/62 90 11/16/20 20:56 98 H 28 H 97 11/16/20 20:51 100 H 11/16/20 20:00 97.8 F 77 38 H 154/70 11/16/20 19:00 82 39 H 148/71 11/16/20 18:00 100 H 15 162/106 90 11/16/20 17:55 94 H 159/78 11/16/20 17:00 90 36 H 159/78 90 - Physical Examination General: No Apparent Distress HEENT: Positive: EOMI, Normocephaly, Mucus Membranes Moist Neck: Positive: neck supple, trachea midline Cardiac: Positive: Reg Rate and Rhythm Lungs: Positive: clear to auscultation Neuro: Positive: Grossly Intact Abdomen: Positive: Soft, Active Bowel Sounds. Negative: Tender Skin: Negative: Rash Musculoskeletal: Normal Range of Motion Extremities: Present: normal. Absent: edema - Labs and Meds CBC 11/17/20 Range/Units 04:48 WBC 14.2 H (4.5-11.0) K/mm3 RBC 2.85 L (3.65-5.03) M/mm3 Hgb 8.5 L (10.1-14.3) gm/dl Hct 25.5 L (30.3-42.9) % Plt Count 256 (140-440) K/mm3 - Imaging and Cardiology EKG: report reviewed Echo: report reviewed (11/10/2020 - EF 50-55%, normal RVSF, RV mildly dilated, mild MR, mild TR, mod pulm HTN w/RVSP of 51mmHg) - Telemetry EKG Rhythm: Sinus Rhythm AV and intraventricular conduction: right bundle branch block - Allied health notes Allied health notes reviewed: nursing
--- NOTE | 2020-11-17 17:30 | Progress Note ---
Assessment and Plan This is a 84-year-old female with HTN, CKD, chronic RBBB, arthritis who presented to the emergency department on 11/09 from the department With valuation of difficulty breathing and shortness of breath. Upon arrival to the emergency department patient was actively unresponsive and positive pressure ventilation was started and subsequently had a cardiac arrest with eventual ROSC. Work-up emergency department revealed elevated D-dimer of greater than 10,000, elevated lactic acid, CTA showed bilateral segmental and subsegmental emboli with right heart strain, bibasilar airspace consolidation and trace right pleural effusion compatible with pneumonia. Vascular surgery was consulted for thrombolysis. Patient was admitted to the hospitalist service. Patient has no histry of smoking, alcohol or drug abuse. 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 No known allergies. Patient transfered to Telemetry. Patient awake and weak and resting on 2 litres O2. O2 saturation running 100%. No acute respiratory distress at rest. Patient afebrile. Has leukocytosis. Blood pressure 102/49. Pulse 71. Chest xray 11/14/20 reported Faint ill-defined densities within the lower lungs have not significantly improved from yesterday's exam. No pneumothorax. Patient is on Apixaban, Zyvox, and protonix. - Patient Problems (1) Acute respiratory failure with hypoxia Current Visit: Yes Status: Resolved Plan to address problem: Patient intubated and extubated. patient presently on 2 litres O2. Apixaban Protonix. (2) Acute massive pulmonary embolism Current Visit: Yes Status: Acute Plan to address problem: Patient is on Apixaban. (3) Bilateral pneumonia Current Visit: Yes Status: Acute Plan to address problem: Patient is on Zyvox. (4) Left leg DVT Current Visit: Yes Status: Acute Plan to address problem: Patient is on Apixaban. (5) Non-STEMI (non-ST elevated myocardial infarction) Current Visit: Yes Status: Acute Plan to address problem: Management as per Cardiology. (6) Paroxysmal atrial fibrillation Current Visit: Yes Status: Acute Plan to address problem: Patient is on Apixaban. Management as per cardiology. (7) Hypertension Current Visit: Yes Status: Chronic Qualifiers: Hypertension type: primary hypertension Qualified Code(s): I10 - Essential (primary) hypertension Plan to address problem: Management as per primary care. (8) Acute kidney injury Current Visit: Yes Status: Acute Plan to address problem: Management as per nephrology. (9) Cardiopulmonary arrest Current Visit: Yes Status: Resolved Plan to address problem: Patient resucitated and ROSC. Subjective Date of service: 11/17/20 Principal diagnosis: Ac. hypoxemic resp failure; P.E.; PNA; Cardiac arrest; TYLER; Shock Interval history: This is a 84-year-old female with HTN, CKD, chronic RBBB, arthritis who presented to the emergency department on 11/09 from the department With valuation of difficulty breathing and shortness of breath. Upon arrival to the emergency department patient was actively unresponsive and positive pressure ventilation was started and subsequently had a cardiac arrest with eventual ROSC. Work-up emergency department revealed elevated D-dimer of greater than 10,000, elevated lactic acid, CTA showed bilateral segmental and subsegmental emboli with right heart strain, bibasilar airspace consolidation and trace right pleural effusion compatible with pneumonia. Vascular surgery was consulted for thrombolysis. Patient was admitted to the hospitalist service. Patient has no histry of smoking, alcohol or drug abuse. 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 No known allergies. Patient transfered to Telemetry. Patient awake and weak and resting on 2 litres O2. O2 saturation running 100%. No acute respiratory distress at rest. Patient afebrile. Has leukocytosis. Blood pressure 102/49. Pulse 71. Chest xray 11/14/20 reported Faint ill-defined densities within the lower lungs have not significantly improved from yesterday's exam. No pneumothorax. Patient is on Apixaban, Zyvox, and protonix. Objective Vital Signs - 12hr 11/17/20 11/17/20 11/17/20 08:06 08:18 10:00 Temperature 97.6 F Pulse Rate 76 76 Respiratory 20 Rate Blood Pressure 134/64 O2 Sat by Pulse 100 100 100 Oximetry 11/17/20 11/17/20 14:00 15:33 Temperature 98.3 F Pulse Rate 71 Respiratory 20 Rate Blood Pressure 102/49 102/49 O2 Sat by Pulse 100 Oximetry Constitutional: no acute distress, alert, other (elderly obese female with mildly increased respiratory effort at rest and weak.) Eyes: non-icteric ENT: oropharynx moist Neck: supple, no lymphadenopathy, no JVD Effort: normal Ascultation: Bilateral: diminished breath sounds, rhonchi (scant bases) Percussion: Bilateral: not dull Cardiovascular: regular rate and rhythm Gastrointestinal: normoactive bowel sounds, soft, non-tender, non-distended (protuberant) Integumentary: normal Extremities: no cyanosis, pulses normal, no ischemia or petechiae Neurologic: non-focal exam (grossly), pupils equal and round, CN II-XII normal Psychiatric: mood appropriate, affect normal CBC and BMP: 11/17/20 04:48 11/15/20 23:08 ABG, PT/INR, D-dimer: ABG ABG pH 7.427 pH Units (7.350-7.450) 11/14/20 12:15 POC ABG pCO2 33.5 mmHg (32.0-48.0) 11/13/20 04:03 ABG pCO2 31.2 mm Hg 11/14/20 12:15 POC ABG pO2 145.7 mmHg (83-108) H 11/13/20 04:03 ABG pO2 94.7 mm Hg (80.0-90.0) H 11/14/20 12:15 POC ABG HCO3 17.9 11/13/20 04:03 ABG O2 Saturation 97.6 % (95.0-99.0) 11/14/20 12:15 PT/INR, D-dimer PT 15.4 Sec. (12.2-14.9) H 11/15/20 23:08 INR 1.17 (0.87-1.13) H 11/15/20 23:08 D-Dimer > 11957 ng/mlDDU (0-234) H 11/10/20 04:28 Abnormal lab findings: Abnormal Labs 11/09/20 11/09/20 11/09/20 17:24 17:24 17:24 WBC RBC 3.29 L Hgb Hct RDW Plt Count 100 L Lymph % (Auto) 54.6 H Harlan % (Auto) [place] # (Auto) Seg Neutrophils % 38.5 L Seg Neuts % (Manual) Lymphocytes % (Manual) Seg Neutrophils # Seg Neutrophils # Man Lymphocytes # (Manual) PT 19.9 H INR 1.64 H APTT 49.2 H Fibrinogen D-Dimer > 13251 H Heparin Anti-Xa Level ABG pH POC ABG pO2 ABG pO2 ABG HCO3 ABG O2 Saturation ABG Base Excess ABG Hemoglobin ABG Oxyhemoglobin ABG Sodium ABG Potassium ABG Chloride ABG Glucose Oxyhemoglobin Carboxyhemoglobin Sodium Potassium 2.9 L* Chloride Carbon Dioxide 13 L BUN Creatinine 1.4 H Glucose 391 H POC Glucose Lactic Acid Calcium Phosphorus Magnesium AST ALT Lactate Dehydrogenase Total Creatine Kinase CK-MB (CK-2) 5.0 H CK-MB (CK-2) Rel Index 4.8 H Troponin T 0.263 H* C-Reactive Protein NT-Pro-B Natriuret Pep Total Protein Albumin Triglycerides 163 H HDL Cholesterol 29 L Arterial Blood Glucose Arterial Blood Ionized Calcium Urine Creatinine Urine Chloride Crossmatch 11/09/20 11/09/20 11/09/20 17:24 17:24 18:11 WBC RBC Hgb Hct RDW Plt Count Lymph % (Auto) [place] % (Auto) [place] # (Auto) Seg Neutrophils % Seg Neuts % (Manual) Lymphocytes % (Manual) Seg Neutrophils # Seg Neutrophils # Man Lymphocytes # (Manual) PT INR APTT Fibrinogen D-Dimer Heparin Anti-Xa Level ABG pH POC ABG pO2 ABG pO2 ABG HCO3 ABG O2 Saturation ABG Base Excess ABG Hemoglobin ABG Oxyhemoglobin ABG Sodium ABG Potassium ABG Chloride ABG Glucose Oxyhemoglobin Carboxyhemoglobin Sodium Potassium Chloride Carbon Dioxide BUN Creatinine Glucose POC Glucose Lactic Acid 11.40 H* Calcium Phosphorus Magnesium AST 312 H ALT 273 H Lactate Dehydrogenase Total Creatine Kinase CK-MB (CK-2) CK-MB (CK-2) Rel Index Troponin T C-Reactive Protein NT-Pro-B Natriuret Pep 1169 H Total Protein 5.2 L Albumin 2.8 L Triglycerides HDL Cholesterol Arterial Blood Glucose Arterial Blood Ionized Calcium Urine Creatinine Urine Chloride Crossmatch See Detail 11/09/20 11/09/20 11/09/20 18:21 20:07 20:07 WBC RBC Hgb Hct RDW Plt Count Lymph % (Auto) [place] % (Auto) [place] # (Auto) Seg Neutrophils % Seg Neuts % (Manual) Lymphocytes % (Manual) Seg Neutrophils # Seg Neutrophils # Man Lymphocytes # (Manual) PT INR APTT Fibrinogen D-Dimer Heparin Anti-Xa Level ABG pH 7.053 L POC ABG pO2 159.6 H ABG pO2 ABG HCO3 ABG O2 Saturation ABG Base Excess ABG Hemoglobin ABG Oxyhemoglobin ABG Sodium 135.1 L ABG Potassium ABG Chloride ABG Glucose 421 H Oxyhemoglobin Carboxyhemoglobin 0.3 L Sodium Potassium Chloride Carbon Dioxide BUN Creatinine Glucose POC Glucose Lactic Acid 9.00 H* Calcium Phosphorus Magnesium AST ALT Lactate Dehydrogenase Total Creatine Kinase 340 H CK-MB (CK-2) 14.2 H CK-MB (CK-2) Rel Index 4.1 H Troponin T 0.553 H* D C-Reactive Protein NT-Pro-B Natriuret Pep Total Protein Albumin Triglycerides HDL Cholesterol Arterial Blood Glucose 421 H Arterial Blood Ionized Calcium Urine Creatinine Urine Chloride Crossmatch 11/09/20 11/09/20 11/10/20 23:05 23:05 00:42 WBC RBC Hgb Hct RDW Plt Count Lymph % (Auto) [place] % (Auto) [place] # (Auto) Seg Neutrophils % Seg Neuts % (Manual) Lymphocytes % (Manual) Seg Neutrophils # Seg Neutrophils # Man Lymphocytes # (Manual) PT 19.8 H INR 1.63 H APTT Fibrinogen 210 L D-Dimer Heparin Anti-Xa Level 0.79 H ABG pH POC ABG pO2 ABG pO2 ABG HCO3 ABG O2 Saturation ABG Base Excess ABG Hemoglobin ABG Oxyhemoglobin ABG Sodium ABG Potassium ABG Chloride ABG Glucose Oxyhemoglobin Carboxyhemoglobin Sodium Potassium Chloride Carbon Dioxide BUN Creatinine Glucose POC Glucose Lactic Acid 6.80 H* Calcium Phosphorus Magnesium AST ALT Lactate Dehydrogenase Total Creatine Kinase 449 H CK-MB (CK-2) 18.4 H CK-MB (CK-2) Rel Index Troponin T 0.873 H* D C-Reactive Protein NT-Pro-B Natriuret Pep Total Protein Albumin Triglycerides HDL Cholesterol Arterial Blood Glucose Arterial Blood Ionized Calcium Urine Creatinine Urine Chloride Crossmatch 11/10/20 11/10/20 11/10/20 04:28 04:28 04:28 WBC RBC Hgb Hct RDW Plt Count Lymph % (Auto) [place] % (Auto) [place] # (Auto) Seg Neutrophils % Seg Neuts % (Manual) Lymphocytes % (Manual) Seg Neutrophils # Seg Neutrophils # Man Lymphocytes # (Manual) PT 20.3 H INR 1.69 H APTT Fibrinogen D-Dimer > 82689 H Heparin Anti-Xa Level ABG pH POC ABG pO2 ABG pO2 ABG HCO3 ABG O2 Saturation ABG Base Excess ABG Hemoglobin ABG Oxyhemoglobin ABG Sodium ABG Potassium ABG Chloride ABG Glucose Oxyhemoglobin Carboxyhemoglobin Sodium 136 L Potassium 3.3 L Chloride Carbon Dioxide 16 L BUN 21 H Creatinine 1.8 H Glucose 376 H POC Glucose Lactic Acid Calcium Phosphorus Magnesium AST ALT Lactate Dehydrogenase 1637 H Total Creatine Kinase CK-MB (CK-2) CK-MB (CK-2) Rel Index Troponin T C-Reactive Protein 3.50 H NT-Pro-B Natriuret Pep Total Protein Albumin Triglycerides HDL Cholesterol Arterial Blood Glucose Arterial Blood Ionized Calcium Urine Creatinine Urine Chloride Crossmatch 11/10/20 11/10/20 11/10/20 04:28 04:28 05:13 WBC 17.7 H RBC Hgb Hct RDW Plt Count Lymph % (Auto) [place] % (Auto) [place] # (Auto) Seg Neutrophils % Seg Neuts % (Manual) 96.0 H Lymphocytes % (Manual) 1.0 L Seg Neutrophils # Seg Neutrophils # Man 17.0 H Lymphocytes # (Manual) 0.2 L PT INR APTT Fibrinogen D-Dimer Heparin Anti-Xa Level ABG pH 7.221 L POC ABG pO2 162.0 H ABG pO2 ABG HCO3 ABG O2 Saturation ABG Base Excess ABG Hemoglobin 11.7 L ABG Oxyhemoglobin 98.9 H ABG Sodium 133.6 L ABG Potassium 3.1 L ABG Chloride ABG Glucose 346 H Oxyhemoglobin Carboxyhemoglobin 0.1 L Sodium Potassium Chloride Carbon Dioxide BUN Creatinine Glucose POC Glucose Lactic Acid 6.10 H* Calcium Phosphorus Magnesium AST ALT Lactate Dehydrogenase Total Creatine Kinase CK-MB (CK-2) CK-MB (CK-2) Rel Index Troponin T C-Reactive Protein NT-Pro-B Natriuret Pep Total Protein Albumin Triglycerides HDL Cholesterol Arterial Blood Glucose 346 H Arterial Blood Ionized Calcium Urine Creatinine Urine Chloride Crossmatch 11/10/20 11/10/20 11/10/20 11:06 12:30 15:08 WBC 16.1 H RBC 3.20 L Hgb 9.7 L Hct 29.5 L RDW Plt Count Lymph % (Auto) 7.4 L [place] % (Auto) 8.7 H [place] # (Auto) 1.4 H Seg Neutrophils % 83.7 H Seg Neuts % (Manual) Lymphocytes % (Manual) Seg Neutrophils # 13.5 H Seg Neutrophils # Man Lymphocytes # (Manual) PT 18.9 H INR 1.53 H APTT 204.8 H* Fibrinogen D-Dimer Heparin Anti-Xa Level 0.76 H ABG pH POC ABG pO2 ABG pO2 ABG HCO3 ABG O2 Saturation ABG Base Excess ABG Hemoglobin ABG Oxyhemoglobin ABG Sodium ABG Potassium ABG Chloride ABG Glucose Oxyhemoglobin Carboxyhemoglobin Sodium Potassium Chloride Carbon Dioxide BUN Creatinine Glucose POC Glucose Lactic Acid Calcium Phosphorus Magnesium AST ALT Lactate Dehydrogenase Total Creatine Kinase CK-MB (CK-2) CK-MB (CK-2) Rel Index Troponin T C-Reactive Protein NT-Pro-B Natriuret Pep Total Protein Albumin Triglycerides HDL Cholesterol Arterial Blood Glucose Arterial Blood Ionized Calcium Urine Creatinine 80.9 H Urine Chloride 38.8 L Crossmatch 11/10/20 11/10/20 11/10/20 15:08 17:17 18:25 WBC RBC Hgb Hct RDW Plt Count Lymph % (Auto) [place] % (Auto) [place] # (Auto) Seg Neutrophils % Seg Neuts % (Manual) Lymphocytes % (Manual) Seg Neutrophils # Seg Neutrophils # Man Lymphocytes # (Manual) PT INR APTT Fibrinogen D-Dimer Heparin Anti-Xa Level ABG pH 7.206 L POC ABG pO2 ABG pO2 ABG HCO3 18.3 L ABG O2 Saturation ABG Base Excess -9.2 L ABG Hemoglobin 9.4 L ABG Oxyhemoglobin ABG Sodium ABG Potassium ABG Chloride ABG Glucose Oxyhemoglobin 94.3 L Carboxyhemoglobin Sodium Potassium Chloride Carbon Dioxide BUN Creatinine Glucose POC Glucose 200 H Lactic Acid 4.10 H* Calcium Phosphorus Magnesium AST ALT Lactate Dehydrogenase Total Creatine Kinase CK-MB (CK-2) CK-MB (CK-2) Rel Index Troponin T C-Reactive Protein NT-Pro-B Natriuret Pep Total Protein Albumin Triglycerides HDL Cholesterol Arterial Blood Glucose Arterial Blood Ionized Calcium Urine Creatinine Urine Chloride Crossmatch 11/10/20 11/10/20 11/10/20 19:54 20:21 21:13 WBC RBC Hgb 9.7 L Hct 28.4 L RDW Plt Count Lymph % (Auto) [place] % (Auto) [place] # (Auto) Seg Neutrophils % Seg Neuts % (Manual) Lymphocytes % (Manual) Seg Neutrophils # Seg Neutrophils # Man Lymphocytes # (Manual) PT INR APTT Fibrinogen D-Dimer Heparin Anti-Xa Level 0.13 L ABG pH 7.297 L POC ABG pO2 ABG pO2 ABG HCO3 ABG O2 Saturation ABG Base Excess ABG Hemoglobin 7.3 L ABG Oxyhemoglobin ABG Sodium 135.6 L ABG Potassium ABG Chloride 111.0 H ABG Glucose 153 H Oxyhemoglobin Carboxyhemoglobin Sodium Potassium Chloride Carbon Dioxide BUN Creatinine Glucose POC Glucose Lactic Acid Calcium Phosphorus Magnesium AST ALT Lactate Dehydrogenase Total Creatine Kinase CK-MB (CK-2) CK-MB (CK-2) Rel Index Troponin T C-Reactive Protein NT-Pro-B Natriuret Pep Total Protein Albumin Triglycerides HDL Cholesterol Arterial Blood Glucose 153 H Arterial Blood Ionized Calcium Urine Creatinine Urine Chloride Crossmatch 11/10/20 11/11/20 11/11/20 23:30 04:12 04:35 WBC 16.0 H RBC 2.83 L Hgb 8.7 L Hct 25.8 L RDW Plt Count Lymph % (Auto) [place] % (Auto) [place] # (Auto) Seg Neutrophils % Seg Neuts % (Manual) Lymphocytes % (Manual) Seg Neutrophils # Seg Neutrophils # Man Lymphocytes # (Manual) PT INR APTT Fibrinogen D-Dimer Heparin Anti-Xa Level 0.29 L ABG pH POC ABG pO2 ABG pO2 ABG HCO3 ABG O2 Saturation ABG Base Excess ABG Hemoglobin ABG Oxyhemoglobin ABG Sodium ABG Potassium ABG Chloride ABG Glucose Oxyhemoglobin Carboxyhemoglobin Sodium Potassium Chloride Carbon Dioxide BUN Creatinine Glucose POC Glucose 166 H Lactic Acid Calcium Phosphorus Magnesium AST ALT Lactate Dehydrogenase Total Creatine Kinase CK-MB (CK-2) CK-MB (CK-2) Rel Index Troponin T C-Reactive Protein NT-Pro-B Natriuret Pep Total Protein Albumin Triglycerides HDL Cholesterol Arterial Blood Glucose Arterial Blood Ionized Calcium Urine Creatinine Urine Chloride Crossmatch 11/11/20 11/11/20 11/11/20 04:35 05:00 05:01 WBC RBC Hgb Hct RDW Plt Count Lymph % (Auto) [place] % (Auto) [place] # (Auto) Seg Neutrophils % Seg Neuts % (Manual) Lymphocytes % (Manual) Seg Neutrophils # Seg Neutrophils # Man Lymphocytes # (Manual) PT INR APTT Fibrinogen D-Dimer Heparin Anti-Xa Level ABG pH POC ABG pO2 ABG pO2 ABG HCO3 ABG O2 Saturation ABG Base Excess ABG Hemoglobin ABG Oxyhemoglobin ABG Sodium ABG Potassium ABG Chloride ABG Glucose Oxyhemoglobin Carboxyhemoglobin Sodium 136 L Potassium Chloride Carbon Dioxide 17 L BUN 25 H Creatinine 2.5 H Glucose 192 H POC Glucose 191 H Lactic Acid 2.20 H* Calcium 7.6 L Phosphorus Magnesium AST 232 H ALT 309 H Lactate Dehydrogenase Total Creatine Kinase CK-MB (CK-2) CK-MB (CK-2) Rel Index Troponin T C-Reactive Protein NT-Pro-B Natriuret Pep Total Protein 5.7 L Albumin 2.7 L Triglycerides HDL Cholesterol Arterial Blood Glucose Arterial Blood Ionized Calcium Urine Creatinine Urine Chloride Crossmatch 11/11/20 11/11/20 11/11/20 09:45 12:34 14:40 WBC RBC Hgb Hct RDW Plt Count Lymph % (Auto) [place] % (Auto) [place] # (Auto) Seg Neutrophils % Seg Neuts % (Manual) Lymphocytes % (Manual) Seg Neutrophils # Seg Neutrophils # Man Lymphocytes # (Manual) PT INR APTT Fibrinogen D-Dimer Heparin Anti-Xa Level ABG pH POC ABG pO2 ABG pO2 172.4 H ABG HCO3 16.7 L ABG O2 Saturation 99.1 H ABG Base Excess -7.9 L ABG Hemoglobin 6.1 L ABG Oxyhemoglobin ABG Sodium ABG Potassium ABG Chloride ABG Glucose Oxyhemoglobin Carboxyhemoglobin Sodium Potassium Chloride Carbon Dioxide BUN Creatinine Glucose POC Glucose 141 H Lactic Acid 2.70 H* Calcium Phosphorus Magnesium AST ALT Lactate Dehydrogenase Total Creatine Kinase CK-MB (CK-2) CK-MB (CK-2) Rel Index Troponin T C-Reactive Protein NT-Pro-B Natriuret Pep Total Protein Albumin Triglycerides HDL Cholesterol Arterial Blood Glucose Arterial Blood Ionized Calcium Urine Creatinine Urine Chloride Crossmatch 11/11/20 11/11/20 11/11/20 17:06 21:00 23:20 WBC RBC Hgb 7.1 L Hct 20.9 L RDW Plt Count Lymph % (Auto) [place] % (Auto) [place] # (Auto) Seg Neutrophils % Seg Neuts % (Manual) Lymphocytes % (Manual) Seg Neutrophils # Seg Neutrophils # Man Lymphocytes # (Manual) PT INR APTT Fibrinogen D-Dimer Heparin Anti-Xa Level ABG pH 7.287 L POC ABG pO2 ABG pO2 ABG HCO3 ABG O2 Saturation ABG Base Excess ABG Hemoglobin 7.5 L ABG Oxyhemoglobin ABG Sodium 134.1 L ABG Potassium ABG Chloride 110.0 H ABG Glucose 141 H Oxyhemoglobin Carboxyhemoglobin Sodium Potassium Chloride Carbon Dioxide BUN Creatinine Glucose POC Glucose 157 H Lactic Acid Calcium Phosphorus Magnesium AST ALT Lactate Dehydrogenase Total Creatine Kinase CK-MB (CK-2) CK-MB (CK-2) Rel Index Troponin T C-Reactive Protein NT-Pro-B Natriuret Pep Total Protein Albumin Triglycerides HDL Cholesterol Arterial Blood Glucose 141 H Arterial Blood Ionized Calcium 4.2 L Urine Creatinine Urine Chloride Crossmatch 11/11/20 11/12/20 11/12/20 23:30 04:26 04:26 WBC 16.8 H RBC 2.25 L Hgb 6.8 L Hct 20.5 L RDW Plt Count Lymph % (Auto) [place] % (Auto) [place] # (Auto) Seg Neutrophils % Seg Neuts % (Manual) Lymphocytes % (Manual) Seg Neutrophils # Seg Neutrophils # Man Lymphocytes # (Manual) PT INR APTT Fibrinogen D-Dimer Heparin Anti-Xa Level ABG pH POC ABG pO2 ABG pO2 ABG HCO3 ABG O2 Saturation ABG Base Excess ABG Hemoglobin ABG Oxyhemoglobin ABG Sodium ABG Potassium ABG Chloride ABG Glucose Oxyhemoglobin Carboxyhemoglobin Sodium Potassium Chloride 110.1 H Carbon Dioxide 18 L BUN 25 H Creatinine 2.4 H Glucose 146 H POC Glucose 127 H Lactic Acid Calcium 7.4 L Phosphorus Magnesium AST ALT Lactate Dehydrogenase Total Creatine Kinase CK-MB (CK-2) CK-MB (CK-2) Rel Index Troponin T C-Reactive Protein NT-Pro-B Natriuret Pep Total Protein Albumin Triglycerides HDL Cholesterol Arterial Blood Glucose Arterial Blood Ionized Calcium Urine Creatinine Urine Chloride Crossmatch 11/12/20 11/12/20 11/12/20 04:26 06:01 12:02 WBC RBC Hgb Hct RDW Plt Count Lymph % (Auto) [place] % (Auto) [place] # (Auto) Seg Neutrophils % Seg Neuts % (Manual) Lymphocytes % (Manual) Seg Neutrophils # Seg Neutrophils # Man Lymphocytes # (Manual) PT 17.6 H INR 1.40 H APTT 162.1 H* Fibrinogen D-Dimer Heparin Anti-Xa Level ABG pH POC ABG pO2 ABG pO2 ABG HCO3 ABG O2 Saturation ABG Base Excess ABG Hemoglobin ABG Oxyhemoglobin ABG Sodium ABG Potassium ABG Chloride ABG Glucose Oxyhemoglobin Carboxyhemoglobin Sodium Potassium Chloride Carbon Dioxide BUN Creatinine Glucose POC Glucose 134 H 131 H Lactic Acid Calcium Phosphorus Magnesium AST ALT Lactate Dehydrogenase Total Creatine Kinase CK-MB (CK-2) CK-MB (CK-2) Rel Index Troponin T C-Reactive Protein NT-Pro-B Natriuret Pep Total Protein Albumin Triglycerides HDL Cholesterol Arterial Blood Glucose Arterial Blood Ionized Calcium Urine Creatinine Urine Chloride Crossmatch 11/12/20 11/12/20 11/12/20 12:05 12:34 17:26 WBC RBC Hgb 6.8 L Hct 20.3 L RDW Plt Count Lymph % (Auto) [place] % (Auto) [place] # (Auto) Seg Neutrophils % Seg Neuts % (Manual) Lymphocytes % (Manual) Seg Neutrophils # Seg Neutrophils # Man Lymphocytes # (Manual) PT INR APTT Fibrinogen D-Dimer Heparin Anti-Xa Level ABG pH 7.297 L POC ABG pO2 ABG pO2 ABG HCO3 ABG O2 Saturation ABG Base Excess ABG Hemoglobin 7.3 L ABG Oxyhemoglobin ABG Sodium 135.6 L ABG Potassium ABG Chloride 111.0 H ABG Glucose 153 H Oxyhemoglobin Carboxyhemoglobin Sodium Potassium Chloride Carbon Dioxide BUN Creatinine Glucose POC Glucose 119 H Lactic Acid Calcium Phosphorus Magnesium AST ALT Lactate Dehydrogenase Total Creatine Kinase CK-MB (CK-2) CK-MB (CK-2) Rel Index Troponin T C-Reactive Protein NT-Pro-B Natriuret Pep Total Protein Albumin Triglycerides HDL Cholesterol Arterial Blood Glucose 153 H Arterial Blood Ionized Calcium Urine Creatinine Urine Chloride Crossmatch 11/12/20 11/13/20 11/13/20 23:49 02:11 02:11 WBC 15.9 H RBC 2.38 L Hgb 7.1 L Hct 21.3 L RDW Plt Count Lymph % (Auto) [place] % (Auto) 8.9 H [place] # (Auto) 1.4 H Seg Neutrophils % 73.5 H Seg Neuts % (Manual) Lymphocytes % (Manual) Seg Neutrophils # 11.7 H Seg Neutrophils # Man Lymphocytes # (Manual) PT INR APTT Fibrinogen D-Dimer Heparin Anti-Xa Level ABG pH POC ABG pO2 ABG pO2 ABG HCO3 ABG O2 Saturation ABG Base Excess ABG Hemoglobin ABG Oxyhemoglobin ABG Sodium ABG Potassium ABG Chloride ABG Glucose Oxyhemoglobin Carboxyhemoglobin Sodium Potassium Chloride 109.8 H Carbon Dioxide 18 L BUN 26 H Creatinine 2.3 H Glucose 109 H POC Glucose 118 H Lactic Acid Calcium 7.7 L Phosphorus Magnesium AST ALT Lactate Dehydrogenase Total Creatine Kinase CK-MB (CK-2) CK-MB (CK-2) Rel Index Troponin T C-Reactive Protein NT-Pro-B Natriuret Pep Total Protein Albumin Triglycerides HDL Cholesterol Arterial Blood Glucose Arterial Blood Ionized Calcium Urine Creatinine Urine Chloride Crossmatch 11/13/20 11/13/20 11/13/20 04:03 06:01 07:50 WBC RBC Hgb 7.7 L Hct 23.3 L RDW Plt Count Lymph % (Auto) [place] % (Auto) [place] # (Auto) Seg Neutrophils % Seg Neuts % (Manual) Lymphocytes % (Manual) Seg Neutrophils # Seg Neutrophils # Man Lymphocytes # (Manual) PT INR APTT Fibrinogen D-Dimer Heparin Anti-Xa Level ABG pH POC ABG pO2 145.7 H ABG pO2 ABG HCO3 ABG O2 Saturation ABG Base Excess ABG Hemoglobin 7.2 L ABG Oxyhemoglobin ABG Sodium 135.3 L ABG Potassium ABG Chloride 113.0 H ABG Glucose 108 H Oxyhemoglobin Carboxyhemoglobin Sodium Potassium Chloride Carbon Dioxide BUN Creatinine Glucose POC Glucose 108 H Lactic Acid Calcium Phosphorus Magnesium AST ALT Lactate Dehydrogenase Total Creatine Kinase CK-MB (CK-2) CK-MB (CK-2) Rel Index Troponin T C-Reactive Protein NT-Pro-B Natriuret Pep Total Protein Albumin Triglycerides HDL Cholesterol Arterial Blood Glucose 108 H Arterial Blood Ionized Calcium 4.3 L Urine Creatinine Urine Chloride Crossmatch 11/13/20 11/13/20 11/13/20 12:00 14:30 17:10 WBC RBC Hgb 7.5 L Hct 22.6 L RDW Plt Count Lymph % (Auto) [place] % (Auto) [place] # (Auto) Seg Neutrophils % Seg Neuts % (Manual) Lymphocytes % (Manual) Seg Neutrophils # Seg Neutrophils # Man Lymphocytes # (Manual) PT INR APTT Fibrinogen D-Dimer Heparin Anti-Xa Level ABG pH POC ABG pO2 ABG pO2 ABG HCO3 ABG O2 Saturation ABG Base Excess ABG Hemoglobin ABG Oxyhemoglobin ABG Sodium ABG Potassium ABG Chloride ABG Glucose Oxyhemoglobin Carboxyhemoglobin Sodium Potassium Chloride Carbon Dioxide BUN Creatinine Glucose POC Glucose 147 H 110 H Lactic Acid Calcium Phosphorus Magnesium AST ALT Lactate Dehydrogenase Total Creatine Kinase CK-MB (CK-2) CK-MB (CK-2) Rel Index Troponin T C-Reactive Protein NT-Pro-B Natriuret Pep Total Protein Albumin Triglycerides HDL Cholesterol Arterial Blood Glucose Arterial Blood Ionized Calcium Urine Creatinine Urine Chloride Crossmatch 11/13/20 11/14/20 11/14/20 21:22 12:15 14:50 WBC RBC Hgb Hct RDW Plt Count Lymph % (Auto) [place] % (Auto) [place] # (Auto) Seg Neutrophils % Seg Neuts % (Manual) Lymphocytes % (Manual) Seg Neutrophils # Seg Neutrophils # Man Lymphocytes # (Manual) PT INR APTT Fibrinogen D-Dimer Heparin Anti-Xa Level 0.10 L ABG pH POC ABG pO2 ABG pO2 97.2 H 94.7 H ABG HCO3 18.6 L ABG O2 Saturation ABG Base Excess -6.1 L -3.7 L ABG Hemoglobin 9.2 L 8.3 L ABG Oxyhemoglobin ABG Sodium ABG Potassium ABG Chloride ABG Glucose Oxyhemoglobin Carboxyhemoglobin Sodium Potassium Chloride Carbon Dioxide BUN Creatinine Glucose POC Glucose Lactic Acid Calcium Phosphorus Magnesium AST ALT Lactate Dehydrogenase Total Creatine Kinase CK-MB (CK-2) CK-MB (CK-2) Rel Index Troponin T C-Reactive Protein NT-Pro-B Natriuret Pep Total Protein Albumin Triglycerides HDL Cholesterol Arterial Blood Glucose Arterial Blood Ionized Calcium Urine Creatinine Urine Chloride Crossmatch 11/14/20 11/14/20 11/14/20 14:50 17:53 Unknown WBC 15.9 H RBC 2.61 L Hgb 7.8 L Hct 23.1 L RDW Plt Count Lymph % (Auto) [place] % (Auto) [place] # (Auto) Seg Neutrophils % Seg Neuts % (Manual) Lymphocytes % (Manual) Seg Neutrophils # Seg Neutrophils # Man Lymphocytes # (Manual) PT INR APTT Fibrinogen D-Dimer Heparin Anti-Xa Level ABG pH POC ABG pO2 ABG pO2 ABG HCO3 ABG O2 Saturation ABG Base Excess ABG Hemoglobin ABG Oxyhemoglobin ABG Sodium ABG Potassium ABG Chloride ABG Glucose Oxyhemoglobin Carboxyhemoglobin Sodium Potassium Chloride Carbon Dioxide BUN Creatinine Glucose POC Glucose 113 H Lactic Acid Calcium Phosphorus Magnesium AST ALT Lactate Dehydrogenase Total Creatine Kinase CK-MB (CK-2) CK-MB (CK-2) Rel Index Troponin T C-Reactive Protein 9.40 H NT-Pro-B Natriuret Pep Total Protein Albumin Triglycerides HDL Cholesterol Arterial Blood Glucose Arterial Blood Ionized Calcium Urine Creatinine Urine Chloride Crossmatch 1011/15/20 11/15/20 Unknown 00:10 02:46 WBC 15.2 H RBC 2.83 L Hgb 8.7 L Hct 25.6 L RDW Plt Count Lymph % (Auto) [place] % (Auto) [place] # (Auto) Seg Neutrophils % Seg Neuts % (Manual) Lymphocytes % (Manual) Seg Neutrophils # Seg Neutrophils # Man Lymphocytes # (Manual) PT INR APTT Fibrinogen D-Dimer Heparin Anti-Xa Level 0.18 L ABG pH POC ABG pO2 ABG pO2 ABG HCO3 ABG O2 Saturation ABG Base Excess ABG Hemoglobin ABG Oxyhemoglobin ABG Sodium ABG Potassium ABG Chloride ABG Glucose Oxyhemoglobin Carboxyhemoglobin Sodium Potassium 3.3 L Chloride 107.8 H Carbon Dioxide 18 L BUN 22 H Creatinine 1.7 H Glucose POC Glucose Lactic Acid Calcium 8.2 L Phosphorus 1.70 L Magnesium 1.40 L AST ALT 88 H Lactate Dehydrogenase Total Creatine Kinase CK-MB (CK-2) CK-MB (CK-2) Rel Index Troponin T C-Reactive Protein NT-Pro-B Natriuret Pep Total Protein 6.0 L Albumin 2.7 L Triglycerides HDL Cholesterol Arterial Blood Glucose Arterial Blood Ionized Calcium Urine Creatinine Urine Chloride Crossmatch 11/15/20 11/15/20 11/15/20 02:46 06:36 08:20 WBC RBC Hgb Hct RDW Plt Count Lymph % (Auto) [place] % (Auto) [place] # (Auto) Seg Neutrophils % Seg Neuts % (Manual) Lymphocytes % (Manual) Seg Neutrophils # Seg Neutrophils # Man Lymphocytes # (Manual) PT INR APTT Fibrinogen D-Dimer Heparin Anti-Xa Level 0.12 L ABG pH POC ABG pO2 ABG pO2 ABG HCO3 ABG O2 Saturation ABG Base Excess ABG Hemoglobin ABG Oxyhemoglobin ABG Sodium ABG Potassium ABG Chloride ABG Glucose Oxyhemoglobin Carboxyhemoglobin Sodium Potassium 3.5 L Chloride Carbon Dioxide 17 L BUN 22 H Creatinine 1.7 H Glucose POC Glucose 107 H Lactic Acid Calcium 8.2 L Phosphorus Magnesium AST ALT Lactate Dehydrogenase Total Creatine Kinase CK-MB (CK-2) CK-MB (CK-2) Rel Index Troponin T C-Reactive Protein NT-Pro-B Natriuret Pep Total Protein Albumin Triglycerides HDL Cholesterol Arterial Blood Glucose Arterial Blood Ionized Calcium Urine Creatinine Urine Chloride Crossmatch 11/15/20 11/15/2011/15/21 11:35 15:56 16:06 WBC RBC Hgb Hct RDW Plt Count Lymph % (Auto) [place] % (Auto) [place] # (Auto) Seg Neutrophils % Seg Neuts % (Manual) Lymphocytes % (Manual) Seg Neutrophils # Seg Neutrophils # Man Lymphocytes # (Manual) PT INR APTT Fibrinogen D-Dimer Heparin Anti-Xa Level 0.14 L ABG pH POC ABG pO2 ABG pO2 ABG HCO3 ABG O2 Saturation ABG Base Excess ABG Hemoglobin ABG Oxyhemoglobin ABG Sodium ABG Potassium ABG Chloride ABG Glucose Oxyhemoglobin Carboxyhemoglobin Sodium Potassium Chloride Carbon Dioxide BUN Creatinine Glucose POC Glucose 145 H 118 H Lactic Acid Calcium Phosphorus Magnesium AST ALT Lactate Dehydrogenase Total Creatine Kinase CK-MB (CK-2) CK-MB (CK-2) Rel Index Troponin T C-Reactive Protein NT-Pro-B Natriuret Pep Total Protein Albumin Triglycerides HDL Cholesterol Arterial Blood Glucose Arterial Blood Ionized Calcium Urine Creatinine Urine Chloride Crossmatch 11/15/20 11/15/20 11/15/20 23:08 23:08 23:08 WBC 13.4 H RBC 2.72 L Hgb 8.3 L Hct 24.4 L RDW Plt Count Lymph % (Auto) [place] % (Auto) [place] # (Auto) Seg Neutrophils % Seg Neuts % (Manual) Lymphocytes % (Manual) Seg Neutrophils # Seg Neutrophils # Man Lymphocytes # (Manual) PT 15.4 H INR 1.17 H APTT 52.0 H Fibrinogen D-Dimer Heparin Anti-Xa Level 0.12 L ABG pH POC ABG pO2 ABG pO2 ABG HCO3 ABG O2 Saturation ABG Base Excess ABG Hemoglobin ABG Oxyhemoglobin ABG Sodium ABG Potassium ABG Chloride ABG Glucose Oxyhemoglobin Carboxyhemoglobin Sodium Potassium Chloride Carbon Dioxide BUN Creatinine Glucose POC Glucose Lactic Acid Calcium Phosphorus Magnesium AST ALT Lactate Dehydrogenase Total Creatine Kinase CK-MB (CK-2) CK-MB (CK-2) Rel Index Troponin T C-Reactive Protein NT-Pro-B Natriuret Pep Total Protein Albumin Triglycerides HDL Cholesterol Arterial Blood Glucose Arterial Blood Ionized Calcium Urine Creatinine Urine Chloride Crossmatch 11/15/20 11/15/20 11/16/20 23:08 23:32 05:14 WBC RBC Hgb Hct RDW Plt Count Lymph % (Auto) [place] % (Auto) [place] # (Auto) Seg Neutrophils % Seg Neuts % (Manual) Lymphocytes % (Manual) Seg Neutrophils # Seg Neutrophils # Man Lymphocytes # (Manual) PT INR APTT Fibrinogen D-Dimer Heparin Anti-Xa Level ABG pH POC ABG pO2 ABG pO2 ABG HCO3 ABG O2 Saturation ABG Base Excess ABG Hemoglobin ABG Oxyhemoglobin ABG Sodium ABG Potassium ABG Chloride ABG Glucose Oxyhemoglobin Carboxyhemoglobin Sodium Potassium Chloride Carbon Dioxide BUN Creatinine 1.6 H Glucose POC Glucose 120 H 141 H Lactic Acid Calcium Phosphorus Magnesium AST ALT Lactate Dehydrogenase Total Creatine Kinase CK-MB (CK-2) CK-MB (CK-2) Rel Index Troponin T C-Reactive Protein NT-Pro-B Natriuret Pep Total Protein Albumin Triglycerides HDL Cholesterol Arterial Blood Glucose Arterial Blood Ionized Calcium Urine Creatinine Urine Chloride Crossmatch 11/16/20 11/16/20 11/16/20 06:17 07:31 11:45 WBC RBC Hgb 8.8 L Hct 25.9 L RDW Plt Count Lymph % (Auto) [place] % (Auto) [place] # (Auto) Seg Neutrophils % Seg Neuts % (Manual) Lymphocytes % (Manual) Seg Neutrophils # Seg Neutrophils # Man Lymphocytes # (Manual) PT INR APTT Fibrinogen D-Dimer Heparin Anti-Xa Level ABG pH POC ABG pO2 ABG pO2 ABG HCO3 ABG O2 Saturation ABG Base Excess ABG Hemoglobin ABG Oxyhemoglobin ABG Sodium ABG Potassium ABG Chloride ABG Glucose Oxyhemoglobin Carboxyhemoglobin Sodium Potassium Chloride Carbon Dioxide BUN Creatinine Glucose POC Glucose 118 H 118 H Lactic Acid Calcium Phosphorus Magnesium AST ALT Lactate Dehydrogenase Total Creatine Kinase CK-MB (CK-2) CK-MB (CK-2) Rel Index Troponin T C-Reactive Protein NT-Pro-B Natriuret Pep Total Protein Albumin Triglycerides HDL Cholesterol Arterial Blood Glucose Arterial Blood Ionized Calcium Urine Creatinine Urine Chloride Crossmatch 11/16/20 11/16/20 11/16/20 15:58 17:17 21:24 WBC RBC Hgb Hct RDW Plt Count Lymph % (Auto) [place] % (Auto) [place] # (Auto) Seg Neutrophils % Seg Neuts % (Manual) Lymphocytes % (Manual) Seg Neutrophils # Seg Neutrophils # Man Lymphocytes # (Manual) PT INR APTT Fibrinogen D-Dimer Heparin Anti-Xa Level ABG pH POC ABG pO2 ABG pO2 ABG HCO3 ABG O2 Saturation ABG Base Excess ABG Hemoglobin ABG Oxyhemoglobin ABG Sodium ABG Potassium ABG Chloride ABG Glucose Oxyhemoglobin Carboxyhemoglobin Sodium Potassium Chloride Carbon Dioxide BUN Creatinine Glucose POC Glucose 153 H 132 H 132 H Lactic Acid Calcium Phosphorus Magnesium AST ALT Lactate Dehydrogenase Total Creatine Kinase CK-MB (CK-2) CK-MB (CK-2) Rel Index Troponin T C-Reactive Protein NT-Pro-B Natriuret Pep Total Protein Albumin Triglycerides HDL Cholesterol Arterial Blood Glucose Arterial Blood Ionized Calcium Urine Creatinine Urine Chloride Crossmatch 11/17/20 11/17/20 04:48 15:31 WBC 14.2 H RBC 2.85 L Hgb 8.5 L Hct 25.5 L RDW 15.5 H Plt Count Lymph % (Auto) [place] % (Auto) [place] # (Auto) Seg Neutrophils % Seg Neuts % (Manual) Lymphocytes % (Manual) Seg Neutrophils # Seg Neutrophils # Man Lymphocytes # (Manual) PT INR APTT Fibrinogen D-Dimer Heparin Anti-Xa Level ABG pH POC ABG pO2 ABG pO2 ABG HCO3 ABG O2 Saturation ABG Base Excess ABG Hemoglobin ABG Oxyhemoglobin ABG Sodium ABG Potassium ABG Chloride ABG Glucose Oxyhemoglobin Carboxyhemoglobin Sodium Potassium Chloride Carbon Dioxide BUN Creatinine Glucose POC Glucose 131 H Lactic Acid Calcium Phosphorus Magnesium AST ALT Lactate Dehydrogenase Total Creatine Kinase CK-MB (CK-2) CK-MB (CK-2) Rel Index Troponin T C-Reactive Protein NT-Pro-B Natriuret Pep Total Protein Albumin Triglycerides HDL Cholesterol Arterial Blood Glucose Arterial Blood Ionized Calcium Urine Creatinine Urine Chloride Crossmatch Chest x-ray: report reviewed, image reviewed Additional Studies: CHEST 1 VIEW 11/14/20 INDICATION / CLINICAL INFORMATION: follow up respiratory failure. Dyspnea FINDINGS: SUPPORT DEVICES: No significant change in position. HEART / MEDIASTINUM: The cardiomediastinal silhouette has not significantly changed in the interim. LUNGS / PLEURA: Faint ill-defined densities within the lower lungs have not significantly improved from yesterday's exam. No pneumothorax. Allied health notes reviewed: nursing
[2020-11-18] MEDS: LINEZOLID 600 MG/300 ML BAG IV SCH ×3 (02:05→22:55)
[2020-11-18] MEDS: dilTIAZem 60 MG TAB PO SCH ×4 (02:05→21:30)
[2020-11-18] MEDS: INSULIN REGULAR, HUMAN 100 UNITS/1 ML SUB-Q SCH ×3 (07:30→17:50)
[2020-11-18] MEDS: HYDROcodone/ACETAMINOPHEN 5-325 MG TAB PO PRN (09:45)
--- NOTE | 2020-11-18 10:50 | Progress Note ---
Assessment and Plan 84-year-old female with hypertension obesity suffered a cardiac arrest secondary to large pulmonary embolism with RV dysfunction and failure with a non-ST elevation AR hypotension and acute renal sufficiency Acute respiratory failure with hypoxia * Pulmonology is following Non-STEMI (non-ST elevated myocardial infarction) Acute pulmonary embolism with acute cor pulmonale Atrial fibrillation * Anticoagulated with Eliquis * Telemetry reviewed: Patient currently sinus rhythm * Echo 11/10/2020-EF 50 to 55%, right ventricular systolic function is normal, right ventricle is mildly dilated, left atrium not well visualized, mild mitral regurgitation, moderate pulmonary hypertension Acute kidney injury * Nephrology currently following Anemia * GI following Plan: Stopped metoprolol. Added hydralizine 50mg PO TID for BP control. Convert diltiazem 60mg PO Q6hrs to Diltiazem CD 360mg PO QD in AM. Will continue to follow Patient seen in conjunction with Dr. Ratliff who agrees with this plan of care. - Patient Problems (1) Acute kidney injury Current Visit: Yes Status: Acute (2) Acute pulmonary embolism with acute cor pulmonale Current Visit: Yes Status: Acute Qualifiers: Pulmonary embolism type: saddle Qualified Code(s): I26.02 - Saddle embolus of pulmonary artery with acute cor pulmonale (3) Acute respiratory failure with hypoxia Current Visit: Yes Status: Resolved (4) Atrial fibrillation Current Visit: Yes Status: Acute Qualifiers: Atrial fibrillation type: persistent (not longstanding) Qualified Code(s): I48.19 - Other persistent atrial fibrillation; I48.1 - Persistent atrial fibrillation (5) Cardiopulmonary arrest Current Visit: Yes Status: Resolved (6) Hypokalemia Current Visit: Yes Status: Acute (7) Non-STEMI (non-ST elevated myocardial infarction) Current Visit: Yes Status: Acute (8) RBBB Current Visit: Yes Status: Chronic (9) Upper GI hemorrhage Current Visit: Yes Status: Acute Subjective Date of service: 11/18/20 Principal diagnosis: Ac. hypoxemic resp failure; P.E.; PNA; Cardiac arrest; TYLER; Shock Interval history: Patient resting in bed. Reports swelling in RUE Sinus 70s on monitor Objective Vital Signs Temp Pulse Pulse Resp BP Pulse Ox 11/18/20 08:56 97.9 F 70 18 145/64 98 11/18/20 04:20 98.6 F 68 18 125/53 100 11/18/20 02:05 67 123/64 11/18/20 00:32 98.8 F 67 18 123/64 97 11/17/20 21:16 98.8 F 62 19 111/52 100 11/17/20 20:07 71 102/49 11/17/20 20:06 71 102/49 11/17/20 20:00 76 98 H 28 H 97 11/17/20 15:33 98.3 F 71 20 102/49 100 11/17/20 14:00 102/49 - Physical Examination General: No Apparent Distress HEENT: Positive: EOMI, Normocephaly, Mucus Membranes Moist Neck: Positive: neck supple, trachea midline Cardiac: Positive: Reg Rate and Rhythm Lungs: Positive: Decreased Breath Sounds Neuro: Positive: Grossly Intact Abdomen: Positive: Soft, Active Bowel Sounds. Negative: Tender Skin: Negative: Rash Musculoskeletal: Normal Range of Motion Extremities: Present: normal, Other (edema in RUE ). Absent: edema - Imaging and Cardiology EKG: report reviewed Echo: report reviewed (11/10/2020 - EF 50-55%, normal RVSF, RV mildly dilated, mild MR, mild TR, mod pulm HTN w/RVSP of 51mmHg) - Telemetry EKG Rhythm: Sinus Rhythm - EKG Sinus rhythms and dysrhythmias: sinus rhythm AV and intraventricular conduction: right bundle branch block - Allied health notes Allied health notes reviewed: nursing
[2020-11-18] MEDS: PANTOPRAZOLE 40 MG INJ IV SCH ×2 (11:43→22:50)
[2020-11-18] MEDS: METOPROLOL TARTRATE 100 MG TAB PO SCH (11:43)
[2020-11-18] MEDS: SENNOSIDES/DOCUSATE SODIUM 8.6/50 MG TAB FEEDTUBE SCH ×2 (11:43→22:55)
[2020-11-18] MEDS: APIXABAN 5 MG TAB PO SCH ×2 (11:45→22:55)
--- NOTE | 2020-11-18 11:55 | Progress Note ---
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 #Bilateral PE: s/p EKOS #Cardiac arrest #TYELR: renally dose medications. Recs: -Continue linezolid 600mg q12h to complete 8 days. -Follow up blood cultures. Thank you for the consult, we will continue to follow. OK for DC from ID perspective with Zyvox as above. Aguilar Ng MD [facility] ([facility]) O: [phone] F: [phone] Subjective Date of service: 11/18/20 Principal diagnosis: Ac. hypoxemic resp failure; P.E.; PNA; Cardiac arrest; TYLER; Shock Interval history: Afebrile, improving white count. Objective - Exam Narrative Exam: Physical Exam: Constitutional: Alert, cooperative. Follows commands, tracks. Head, Ears, Nose: Normocephalic, atraumatic. External ears, nose normal Eyes: Conjunctivae/corneas clear. No icterus. No ptosis. Neck: Supple, no meningeal signs Oral: dentition fair, no thrush Cardiovascular: S1, S2 normal. Respiratory: Good air entry, clear to auscultation bilaterally GI: Soft, non-tender; bowel sounds normal. No peritoneal signs. Musculoskeletal: No pedal edema, no cyanosis. Skin: No rash or abscess Hem/Lymphatic: No palpable cervical or supraclavicular nodes. Psych: No agitation Neurological: No agitation - Constitutional Vitals: Vital Signs Temp Pulse Resp BP Pulse Ox 97.9 F 70 18 145/64 98 11/18/20 08:56 11/18/20 08:56 11/18/20 08:56 11/18/20 08:56 11/18/20 08:56 Temperature -Last 24 Hours Temperature 97.9 F Temperature 98.6 F Temperature 98.8 F Temperature 98.8 F Temperature 98.3 F - Labs CBC & Chem 7: 11/17/20 04:48 11/15/20 23:08 Labs: Abnormal lab results 11/09/20 11/17/20 11/17/20 Range/Units 17:24 15:31 21:46 POC Glucose 131 H 168 H (70-105) mg/dL Crossmatch See Detail 11/18/20 Range/Units 07:39 POC Glucose 177 H (70-105) mg/dL Crossmatch
[2020-11-18] MEDS: hydrALAZINE 25 MG TAB PO SCH ×2 (15:10→22:55)
--- NOTE | 2020-11-18 19:47 | Progress Note ---
Assessment and Plan Assessment and plan: This 84-year-old female with HTN, CKD, chronic right BBB, arthritis admitted s/P cardiac arrest, pulmonary embolism , Pneumonia and GI bleed, tracheal cultures positive for MRSA on Zyvox, PT recommended subacute rehab placement, patient has right upper extremity swelling and pain, requested right upper extremity venous Doppler. Acute issues; -Right upper extremity swelling and edema, follow right upper extremity venous Doppler to rule out SVT/DVT -MRSA tracheal cultures; on Zyvox, ID cleared for discharge on oral Zyvox -PT evaluation noted and appreciated, recommend subacute rehab placement -I discussed with [facility] physician , [facility] case management will reach out to our case management for subacute rehab - Patient is clinically stable for discharge Pending subacute rehab placement Plan of plan of care discussed with the patient, her nurse and case management Neuro: Acute metabolic encephalopathy -CT head completed which shows no acute intracranial abnormality, probable meningioma along the right anterior frontal lobe -Avoid delirium -Patient is awake, follows commands, positive track/focus, pupils equal round reactive -Neurology consulted, appreciate recommendations -Per neurology obtain MRI with [facility] when possible Cardio: S/p cardiopulmonary arrest, atrial fibrillation, acute diastolic heart failure -Cardiology consulted, appreciate recommendations -Echo 11/10/2020-EF 50 to 55%, right ventricular systolic function is normal, right ventricle is mildly dilated, left atrium not well visualized, mild mitral regurgitation, moderate pulmonary hypertension -Vasopressor support with Levophed -s/p dopamine and dobutamine with IVF -Blood pressure monitoring per protocol -started on metoprolol 12.5 BID -As needed hydralazine Respiratory: Acute hypoxic respiratory failure, acute pulmonary medicine with acute cor pulmonale -[facility] consulted, appreciate recommendations -Intubated 11/09 with 7.0 at 22 at the lip-> extuabted 11/14 -Placed on NC -Pulmonary hygiene GI: Upper GI hemorrhage, elevated LFTs -GI consulted, appreciate recommendations -s/p Protonix drip and now on Protonix IV BID -Hepatic serologies negative, hepatic panel negative -Per GI will reassess for EGD if patient develops severe GI bleeding -BR: Senokot -24-hour net balance -127 -Trend LFT -Gastric occult positive -passed bedside swallow eval -CLD, advance as tolerated : Acute kidney injury, metabolic acidosis -Nephrology consulted, appreciate recommendations -Likely prerenal injury in setting of acute bilateral pulmonary embolism with cor pulmonale and right-sided heart failure -Gentle IV hydration -Renal ultrasound showed no evidence of obstructive PE, bilateral echogenic kidneys -No indication for renal replacement at this time per nephrology -Urine electrolytes -Strict intake and output -Daily weights -Avoid nephrotoxic medications -Trend BMP ID: Bilateral pneumonia, SIRS, lactic acidosis -Empiric antibiotics with Rocephin and azithromycin (11/09-11/13) -Monitor fever and WBC curve -CXR noted with worsening bilateral airspace disease -Tracheal aspirate with MRSA -ID consulted -started on ziovox Heme: Large bilateral segmental and subsegmental PE, thrombocytopenia, coagulopathy, anemia, Left LE DVT -Vascular surgery consulted, appreciate recommendations -S/p pulmonary angiography with placement of thrombolytic catheters -Heparin drip -Transfuse for hemoglobin less than 7 -Trend CBC -S/p 1 unit PRBC -monitor for bleeding Endo: NAD -Accucheck q6 -Avoid hypoglycemia We will closely monitor patient and adjust management as needed Plan of care reviewed with the patient and her nurse, discussed with pulmonary critical History Interval history: This is a 84-year-old female with HTN, CKD, chronic RBBB, arthritis who presented to the emergency department on 11/09 from the department With valuation of difficulty breathing and shortness of breath. Upon arrival to the emergency department patient was actively unresponsive and positive pressure ventilation was started and subsequently had a cardiac arrest with eventual ROSC. Work-up emergency department revealed elevated D-dimer of greater than 10,000, elevated lactic acid, CTA showed bilateral segmental and subsegmental emboli with right heart strain, bibasilar airspace consolidation and trace right pleural effusion compatible with pneumonia. Vascular surgery was consulted for thrombolysis. Patient was admitted to the hospitalist service with consults to CCM, cardiology, nephrology and gastroenterology. 11/10: Patient seen and examined this morning review of her electrolytes shows some abnormalities with noted worsening renal failure in the setting of hypotension. Noted A. fib on EKG. Patient remains on EKOS system. Will obtain cardiology and nephrology evaluation. Echocardiogram to further evaluate condition of the heart in the setting of her cardiac arrest. Patient remains a PUI Covid testing is pending. Discussed with systems accountant this morning may consider changing from dopamine to dobutamine but will await cardiology eval uation. Possible further hydration in the setting of underlying right heart failure. I did discuss with the family who are not aware of any renal problems in the past. Ventilator management per web site manager. Closely monitor leukocytosis no fever noted at this time. I will replace potassium as noted hypokalemia Discussed with family the two daughters in detail 11/11: Patient is having blood-tinged secretions while suctioning, NG tube to dark secretions, gastric occult sent. PICC line ordered to be placed. Cardiology to change dopamine to dobutamine and start normal saline. No plans for hemodialysis per nephrology. 11/12: CPAP trial, PICC placement today and will remove femoral line after pl acement. No indication for renal replacement per nephrology. BLE doppler US per vascular. 11/13: Patient tolerating CPAP trial, per neurology consider MRI brain with Manuel, patient has staph areas in tracheal aspirate, appropriate response to PRBC, remains off vasopressors, worsening renal function. 11/14: Patient was extubated today, hypokalemia/hypomagnesemia/hypophosphatemia treated with K-Phos. Improvement to renal function noted. Patient passed bedside swallow and ordered a diet. Tracheal aspirate with MRSA-> Zyvox every 12 and ID consulted 11/15; PT, OT requested, will transition heparin drip to Eliquis with the morning dose tomorrow Mild hypokalemia, corrected with KCl, other electrolytes normal range, discussed with web site manager Dr. Wagner I spoke with patient's daughter Raza Pizarro and 2 other siblings at [phone] I discussed extensively with all the details of patient's condition, tests and reports, consultants recommendation, her dramatic improvement, extubation and discharge planning issues. They had many questions answered all of them And encouraged them to call back if they have any new concerns. They were appreciative of my call 11/16; PT and OT are evaluating the patient, have not completed the recommendations DC planning per case management 11/17; patient is medically stable Pending PT and OT evaluation and recommendations Discharge planning per case management 11/18; PT recommended subacute placement. Right upper extremity swelling[follow Doppler study] MRSA tracheal cultures, on Zyvox, pending placement Discussed with [facility] physician Dr. Medrano Disposition; subacute rehab placement when stable History Interval history: I have seen and examined the patient at the bedside Patient's chart and medications reviewed Patient feels slightly better, complains of right upper extremity pain and swelling Hospitalist Physical - Constitutional Vitals: Temp Pulse Resp BP Pulse Ox 97.9 F 70 18 145/64 99 11/18/20 08:56 11/18/20 08:56 11/18/20 08:56 11/18/20 08:56 11/18/20 10:00 General appearance: Present: no acute distress, well-nourished, obese, other (On 2 L nasal cannula) - EENT Eyes: Present: PERRL, EOM intact - Neck Neck: Present: supple, normal ROM - Respiratory Respiratory effort: normal Respiratory: bilateral: diminished, negative: rales, rhonchi, wheezing - Cardiovascular Rhythm: regular Heart Sounds: Present: S1 & S2 - Extremities Extremities: no ischemia, abnormal (Right upper extremity swelling) Extremity abnormal: edema (Right upper extremity) - Abdominal General gastrointestinal: soft, non-tender, non-distended, normal bowel sounds - Integumentary Integumentary: Present: clear, warm - Psychiatric Psychiatric: appropriate mood/affect - Neurologic Neurologic: moves all extremities HEART Score - HEART Score Troponin: Troponin T 0.873 ng/mL (0.00-0.029) H* D 11/09/20 23:05 Results - Labs CBC & Chem 7: 11/17/20 04:48 11/15/20 23:08 Labs: Laboratory Last Values WBC 14.2 K/mm3 (4.5-11.0) H 11/17/20 04:48 RBC 2.85 M/mm3 (3.65-5.03) L 11/17/20 04:48 Hgb 8.5 gm/dl (10.1-14.3) L 11/17/20 04:48 Hct 25.5 % (30.3-42.9) L 11/17/20 04:48 MCV 90 fl (79-97) 11/17/20 04:48 MCH 30 pg (28-32) 11/17/20 04:48 MCHC 33 % (30-34) 11/17/20 04:48 RDW 15.5 % (13.2-15.2) H 11/17/20 04:48 Plt Count 256 K/mm3 (140-440) 11/17/20 04:48 Lymph % (Auto) 15.4 % (13.4-35.0) 11/13/20 02:11 [place] % (Auto) 8.9 % (0.0-7.3) H 11/13/20 02:11 Eos % (Auto) 1.5 % (0.0-4.3) 11/13/20 02:11 Baso % (Auto) 0.7 % (0.0-1.8) 11/13/20 02:11 Lymph # (Auto) 2.4 K/mm3 (1.2-5.4) 11/13/20 02:11 [place] # (Auto) 1.4 K/mm3 (0.0-0.8) H 11/13/20 02:11 Eos # (Auto) 0.2 K/mm3 (0.0-0.4) 11/13/20 02:11 Baso # (Auto) 0.1 K/mm3 (0.0-0.1) 11/13/20 02:11 Add Manual Diff Complete 11/10/20 04:28 Total Counted 100 11/10/20 04:28 Seg Neutrophils % 73.5 % (40.0-70.0) H 11/13/20 02:11 Seg Neuts % (Manual) 96.0 % (40.0-70.0) H 11/10/20 04:28 Lymphocytes % (Manual) 1.0 % (13.4-35.0) L 11/10/20 04:28 Monocytes % (Manual) 3.0 % (0.0-7.3) 11/10/20 04:28 Nucleated RBC % Not Reportable 11/10/20 04:28 Seg Neutrophils # 11.7 K/mm3 (1.8-7.7) H 11/13/20 02:11 Seg Neutrophils # Man 17.0 K/mm3 (1.8-7.7) H 11/10/20 04:28 Band Neutrophils # 0.0 K/mm3 11/10/20 04:28 Lymphocytes # (Manual) 0.2 K/mm3 (1.2-5.4) L 11/10/20 04:28 Abs React Lymphs (Man) 0.0 K/mm3 11/10/20 04:28 Monocytes # (Manual) 0.5 K/mm3 (0.0-0.8) 11/10/20 04:28 Eosinophils # (Manual) 0.0 K/mm3 (0.0-0.4) 11/10/20 04:28 Basophils # (Manual) 0.0 K/mm3 (0.0-0.1) 11/10/20 04:28 Metamyelocytes # 0.0 K/mm3 11/10/20 04:28 Myelocytes # 0.0 K/mm3 11/10/20 04:28 Promyelocytes # 0.0 K/mm3 11/10/20 04:28 Blast Cells # 0.0 K/mm3 11/10/20 04:28 WBC Morphology Not Reportable 11/10/20 04:28 Hypersegmented Neuts Not Reportable 11/10/20 04:28 Hyposegmented Neuts Not Reportable 11/10/20 04:28 Hypogranular Neuts Not Reportable 11/10/20 04:28 Smudge Cells Not Reportable 11/10/20 04:28 Toxic Granulation Not Reportable 11/10/20 04:28 Toxic Vacuolation Not Reportable 11/10/20 04:28 Dohle Bodies Not Reportable 11/10/20 04:28 Pelger-Huet Anomaly Not Reportable 11/10/20 04:28 Carmen Rods Not Reportable 11/10/20 04:28 Platelet Estimate Consistent w auto 11/10/20 04:28 Clumped Platelets Not Reportable 11/10/20 04:28 Plt Clumps, EDTA Not Reportable 11/10/20 04:28 Large Platelets Not Reportable 11/10/20 04:28 Giant Platelets Not Reportable 11/10/20 04:28 Platelet Satelliting Not Reportable 11/10/20 04:28 Plt Morphology Comment Not Reportable 11/10/20 04:28 RBC Morphology Not Reportable 11/10/20 04:28 Dimorphic RBCs Not Reportable 11/10/20 04:28 Polychromasia Not Reportable 11/10/20 04:28 Hypochromasia Not Reportable 11/10/20 04:28 Poikilocytosis Not Reportable 11/10/20 04:28 Anisocytosis 1+ 11/10/20 04:28 Microcytosis Not Reportable 11/10/20 04:28 Macrocytosis Not Reportable 11/10/20 04:28 Spherocytes Not Reportable 11/10/20 04:28 Pappenheimer Bodies Not Reportable 11/10/20 04:28 Sickle Cells Not Reportable 11/10/20 04:28 Target Cells Not Reportable 11/10/20 04:28 Tear Drop Cells Not Reportable 11/10/20 04:28 Ovalocytes Not Reportable 11/10/20 04:28 Helmet Cells Not Reportable 11/10/20 04:28 Lu-[place] Bodies Not Reportable 11/10/20 04:28 [place] Rings Not Reportable 11/10/20 04:28 Randall Cells Not Reportable 11/10/20 04:28 Bite Cells Not Reportable 11/10/20 04:28 Crenated Cell Not Reportable 11/10/20 04:28 Elliptocytes Not Reportable 11/10/20 04:28 Acanthocytes (Spur) Not Reportable 11/10/20 04:28 Rouleaux Not Reportable 11/10/20 04:28 Hemoglobin C Crystals Not Reportable 11/10/20 04:28 Schistocytes Not Reportable 11/10/20 04:28 Malaria parasites Not Reportable 11/10/20 04:28 Vernon Bodies Not Reportable 11/10/20 04:28 Hem Pathologist Commnt No 11/10/20 04:28 PT 15.4 Sec. (12.2-14.9) H 11/15/20 23:08 INR 1.17 (0.87-1.13) H 11/15/20 23:08 APTT 52.0 Sec. (24.2-36.6) H 11/15/20 23:08 Fibrinogen 299 mg/dl (211-480) 11/10/20 15:08 D-Dimer > 19325 ng/mlDDU (0-234) H 11/10/20 04:28 Heparin Anti-Xa Level 0.12 U.I./ml (0.3-0.7) L 11/15/20 23:08 ABG pH 7.427 pH Units (7.350-7.450) 11/14/20 12:15 POC ABG pCO2 33.5 mmHg (32.0-48.0) 11/13/20 04:03 ABG pCO2 31.2 mm Hg 11/14/20 12:15 POC ABG pO2 145.7 mmHg (83-108) H 11/13/20 04:03 ABG pO2 94.7 mm Hg (80.0-90.0) H 11/14/20 12:15 POC ABG HCO3 17.9 11/13/20 04:03 ABG HCO3 20.1 mmol/L (20.0-26.0) 11/14/20 12:15 ABG O2 Saturation 97.6 % (95.0-99.0) 11/14/20 12:15 ABG O2 Content 12.5 (0.0-44) 11/13/20 21:22 POC ABG Base Excess -7.1 11/13/20 04:03 ABG Base Excess -3.7 mmol/L (-2.0-3.0) L 11/14/20 12:15 ABG Hemoglobin 8.3 gm/dl (12.0-16.0) L 11/14/20 12:15 ABG Oxyhemoglobin 97.8 (94-98) 11/13/20 04:03 ABG Carboxyhemoglobin 0.8 % (0.0-5.0) 11/14/20 12:15 ABG Methemoglobin 0.3 % (0.0-1.5) 11/14/20 12:15 ABG Sodium 135.3 mmol/L (136.0-145.0) L 11/13/20 04:03 ABG Potassium 3.7 mmol/L (3.40-4.50) 11/13/20 04:03 ABG Chloride 113.0 mmol/L (98-107) H 11/13/20 04:03 ABG Glucose 108 mg/dL (65-95) H 11/13/20 04:03 Oxyhemoglobin 96.5 % (95.0-99.0) 11/14/20 12:15 Carboxyhemoglobin 0.7 (0.5-1.5) 11/13/20 04:03 FiO2 25 % 11/14/20 12:15 FiO2 % 40.0 11/13/20 04:03 Sodium 141 mmol/L (137-145) 11/15/20 02:46 Potassium 3.5 mmol/L (3.6-5.0) L 11/15/20 02:46 Chloride 106.4 mmol/L (98-107) 11/15/20 02:46 Carbon Dioxide 17 mmol/L (22-30) L 11/15/20 02:46 Anion Gap 21 mmol/L 11/15/20 02:46 BUN 22 mg/dL (7-17) H 11/15/20 02:46 Creatinine 1.6 mg/dL (0.6-1.2) H 11/15/20 23:08 Estimated GFR 37 ml/min 11/15/20 23:08 BUN/Creatinine Ratio 13 % 11/15/20 02:46 Glucose 82 mg/dL (65-100) 11/15/20 02:46 POC Glucose 127 mg/dL (70-105) H 11/18/20 15:54 Lactic Acid 1.20 mmol/L (0.7-2.0) 11/11/20 23:20 Calcium 8.2 mg/dL (8.4-10.2) L 11/15/20 02:46 Phosphorus 3.40 mg/dL (2.5-4.5) D 11/15/20 02:46 Magnesium 2.10 mg/dL (1.7-2.3) 11/15/20 02:46 Total Bilirubin 0.50 mg/dL (0.1-1.2) 11/14/20 Unknown Direct Bilirubin < 0.2 mg/dL (0-0.2) 11/09/20 17:24 Indirect Bilirubin 0.1 mg/dL 11/09/20 17:24 AST 34 units/L (5-40) 11/14/20 Unknown ALT 88 units/L (7-56) H 11/14/20 Unknown Alkaline Phosphatase 110 units/L (35-129) 11/14/20 Unknown Lactate Dehydrogenase 1637 units/L (91-180) H 11/10/20 04:28 Total Creatine Kinase 449 units/L (30-135) H 11/09/20 23:05 CK-MB (CK-2) 18.4 ng/mL (0.0-4.0) H 11/09/20 23:05 CK-MB (CK-2) Rel Index 4.0 (0-4) 11/09/20 23:05 Troponin T 0.873 ng/mL (0.00-0.029) H* D 11/09/20 23:05 C-Reactive Protein 9.40 mg/dL (0.00-1.30) H 11/14/20 14:50 NT-Pro-B Natriuret Pep 1169 pg/mL (0-900) H 11/09/20 17:24 Total Protein 6.0 g/dL (6.3-8.2) L 11/14/20 Unknown Albumin 2.7 g/dL (3.9-5) L 11/14/20 Unknown Albumin/Globulin Ratio 0.8 % 11/14/20 Unknown Triglycerides 163 mg/dL (2-149) H 11/09/20 17:24 Cholesterol 118 mg/dL (50-199) 11/09/20 17:24 LDL Cholesterol Direct 72 mg/dL (50-130) 11/09/20 17:24 HDL Cholesterol 29 mg/dL (40-59) L 11/09/20 17:24 Cholesterol/HDL Ratio 4.06 % 11/09/20 17:24 Procalcitonin 0.92 ng/mL (<0.15) 11/14/20 14:50 Arterial Blood Glucose 108 mg/dL (65-95) H 11/13/20 04:03 Arterial Blood Ionized Calcium 4.3 mg/dL (4.6-5.3) L 11/13/20 04:03 Urine Color Straw (Yellow) 11/09/20 19:07 Urine Turbidity Clear (Clear) 11/09/20 19:07 Urine pH 7.0 (5.0-7.0) 11/09/20 19:07 Ur Specific [place] 1.003 (1.003-1.030) 11/09/20 19:07 Urine Protein <15 mg/dl mg/dL (Negative) 11/09/20 19:07 Urine Glucose (UA) Neg mg/dL (Negative) 11/09/20 19:07 Urine Ketones Neg mg/dL (Negative) 11/09/20 19:07 Urine Blood Mod (Negative) 11/09/20 19:07 Urine Nitrite Neg (Negative) 11/09/20 19: Urine Bilirubin Neg (Negative) 11/09/20 19:07 Urine Urobilinogen < 2.0 mg/dL (<2.0) 11/09/20 19:07 Ur Leukocyte Esterase Neg (Negative) 11/09/20 19:07 Urine WBC (Auto) 2.0 /HPF (0.0-6.0) 11/09/20 19:07 Urine RBC (Auto) 2.0 /HPF (0.0-6.0) 11/09/20 19:07 U Epithel Cells (Auto) 1.0 /HPF (0-13.0) 11/09/20 19:07 Urine Bacteria (Auto) 1+ /HPF (Negative) 11/09/20 19:07 Urine Creatinine 80.9 mg/dL (0.1-20.0) H 11/10/20 11:06 Urine Sodium 48 mmol/L 11/10/20 11:06 Urine Chloride 38.8 mmolL (110-250) L 11/10/20 11:06 Urine Opiates Screen Negative 11/09/20 19:07 Urine Methadone Screen Negative 11/09/20 19:07 Ur Barbiturates Screen Negative 11/09/20 19:07 Ur Phencyclidine Scrn Negative 11/09/20 19:07 Ur Amphetamines Screen Negative 11/09/20 19:07 U Benzodiazepines Scrn Negative 11/09/20 19:07 Urine Cocaine Screen Negative 11/09/20 19:07 U Marijuana (THC) Screen Negative 11/09/20 19:07 Drugs of Abuse Note Disclamer 11/09/20 19:07 Coronavirus (PCR) Negative (Negative) 11/10/20 Unknown Hepatitis A IgM Ab Nonreactive (NonReactive) 11/12/20 12:34 Hepatitis A Ab Total Nonreactive (Nonreactive) 11/12/20 12:34 Hep Bs Antigen Nonreactive (Negative) 11/12/20 12:34 Hepatitis C Antibody Nonreactive (NonReactive) 11/12/20 12:34 Blood Type O POSITIVE 11/09/20 17:24 Antibody Screen Negative 11/09/20 17:24 Crossmatch See Detail 11/09/20 17:24 Gonsalves/IV: Voiding Method Indwelling Catheter Active Medications - Current Medications Current Medications: Generic Name Dose Route Start Last Admin Trade Name Freq PRN Reason Stop Dose Admin Acetaminophen 650 mg 11/09/20 23:07 11/15/20 00:43 Acetaminophen 650 Mg Rect Supp [place] 650 mg Q6H PRN Administration Pain MILD(1-3)/Fever >100.5/REYES Acetaminophen 650 mg 11/09/20 23:59 Acetaminophen 325 Mg Tab PO Q6H PRN Pain, Mild (1-3) Hydrocodone Bitart/Acetaminophen 2 each 11/09/20 23:59 11/18/20 09:45 Hydrocodone/Acetaminophen 5-325 Mg Tab PO 2 each Q6H PRN Administration Pain, Moderate (4-6) Apixaban 10 mg 11/16/20 10:00 11/18/20 11:45 Apixaban 5 Mg Tab PO 11/22/20 22:01 10 mg Q12HR MELONY Administration Protocol Apixaban 5 mg 11/23/20 10:00 Apixaban 5 Mg Tab PO Q12HR COUNTS INCLUDE 234 BEDS AT THE [facility] Protocol Dextrose 50 ml 11/11/20 11:10 Dextrose 50% In Water (25gm) 50 Ml Syringe IV Q30MIN PRN Hypoglycemia Protocol Diltiazem HCl 60 mg 11/17/20 09:00 11/18/20 15:09 Diltiazem 60 Mg Tab PO 11/19/20 06:00 60 mg Q6H MELONY Administration Diltiazem HCl 360 mg 11/19/20 10:00 Diltiazem Cd 180 Mg Cap PO QDAY MELONY Hydralazine HCl 50 mg 11/18/20 14:00 11/18/20 15:10 Hydralazine 25 Mg Tab PO 50 mg Q8HR MELONY Administration Hydrophilic Ointment 1 applic 11/09/20 17:08 Lip Therapy Vaseline TP Q2H PRN Dry Lips Linezolid 600 mg in 300 mls @ 300 mls/hr 11/18/20 22:00 Zyvox 600mg/300ml IV 11/22/20 10:59 Q12HR COUNTS INCLUDE 234 BEDS AT THE [facility] Protocol Insulin Human Regular 0 units 11/15/20 11:30 11/18/20 17:50 Insulin Regular, Human 100 Units/1 Ml SUB-Q Not Given ACHS COUNTS INCLUDE 234 BEDS AT THE [facility] Protocol Magnesium Hydroxide 30 ml 11/09/20 23:07 Magnesium Hydroxide (Mom) Oral Liqd Udc PO Q4H PRN Constipation Multi-Ingred Cream/Lotion/Oil/Oint 1 applic 11/09/20 17:08 Mineral Oil/Petrolatum, White Ophth Oint 3.5 Gm OU Q4H PRN Dry Eye(s) Ondansetron HCl 4 mg 11/09/20 23:07 Ondansetron 4 Mg/2 Ml Inj IV Q8H PRN Nausea And Vomiting Pantoprazole Sodium 40 mg 11/11/20 22:00 11/18/20 11:43 Pantoprazole 40 Mg Inj IV 40 mg BID MELONY Administration Senna/Docusate Sodium 1 tab 11/09/20 22:00 11/18/20 11:43 Sennosides/Docusate Sodium 8.6/50 Mg Tab FEEDTUBE 1 tab BID MELONY Administration Sodium Chloride 10 ml 11/10/20 10:00 11/18/20 11:45 Sodium Chloride 0.9% 10 Ml Flush Syringe IV 10 ml BID MELONY Administration Sodium Chloride 10 ml 11/09/20 23:07 Sodium Chloride 0.9% 10 Ml Flush Syringe IV PRN PRN LINE FLUSH Nutrition/Malnutrition Assess - Dietary Evaluation Nutrition/Malnutrition Findings: Nutrition Notes Start: 11/10/20 09:17 Freq: Status: Active Protocol: Document 11/14/20 13:58 GB (Rec: 11/14/20 14:07 GB [id number]) Nutrition Notes Initial or Follow up Reassessment Current Diagnosis CKD(stage I-IV),Hypertension Other Pertinent Diagnosis pneu, cardiopulmonary arrest, SIRS, acute diastolic heart failure Current Diet NPO, TF ordered Labs/Tests 11/14: K 3.3, BUN 22, creatinine 1.7, Ca 8.2, P 1.7, Mg 1.4, ALT 88 Pertinent Medications Fentanyl, Norepinephrine/Ns8 Mg250, heparin/NaCl, linezolid , KPhosphate/NaCl Height 5 ft 6 in Weight 80.966 kg [place] Body Weight (kg) 59.09 BMI 28.8 Weight change and time frame Stable for past week. Weight Status Overweight Subjective/Other Information 11/13: per chart: TF stopped, pt placed on LIS 11/14: Per Mechanical Vent note : extubated, now on nasal cannula 11/14: OGT changed to NGT, NG placement confirmed 11/14: per MD note: suspected calcified gallbladder Percent of energy/protein needs met: TF at goal meets 100% EEN. Burn Absent Trauma Absent GI Symptoms Other Difficulty In Swallowing Food Allergy No Skin Integrity/Comment no complications at this time. Current % PO Other Minimum of two criteria No #1 Nutrition Diagnosis Inadequate oral intake Comments: 11/11: vent continues, TF orders entered 11/14: extubated, OGT changed to NGT, TF orders continue Etiology ARF As Evidenced by Signs and Symptoms pt on vent and unable to consume PO Diagnosis Progress(for reassessment Improved documentation) Is patient on ventilator? No Is Patient Ambulatory and/or Out of Bed No REE-([facility]-confined to bed) 1532.880 Kcal/Kg value to use for calculation 22 Approximate Energy Requirements Using 1781 kcal/Kg Calculation Used for Recommendations Kcal/kg Additional Notes Protein: (1-1.2g/kg @ 81kg) 81 -97g Fluid: 1 ml/kcal or per MD Nutrition Intervention Change Diet Order: Advance as able Nutrition Support: TF: Vital AF 1.2 at 50 ml/hr Kcal 1,440 Protein (gm) 90 Fluid (mL) 973 Goal #1 Diet advancement or TF start 11/11: TF orders entered Vital 1.2 AF @ 50ml/hr, flush 100ml/ 4hr 11/14: OGT changed to NGT, TF orders continue. Pt extubated Goal #2 TF at goal rate 50ml/hr and tolerated Follow-Up By: 11/19/20 Additional Comments f/u: Diet advanced, TF tolerance, at goal of 50ml/hr
--- NOTE | 2020-11-18 19:57 | Event Note ---
Date: 11/18/20 -I discussed with [facility] physician at [phone], and discussed patient's condition, treatment and discharge planning Dr. Medrano stated that [facility] case management will reach out to our case management for subacute rehab placement process.
--- NOTE | 2020-11-18 19:59 | Progress Note ---
Assessment and Plan This is a 84-year-old female with HTN, CKD, chronic RBBB, arthritis who presented to the emergency department on 11/09 from the department With valuation of difficulty breathing and shortness of breath. Upon arrival to the emergency department patient was actively unresponsive and positive pressure ventilation was started and subsequently had a cardiac arrest with eventual ROSC. Work-up emergency department revealed elevated D-dimer of greater than 10,000, elevated lactic acid, CTA showed bilateral segmental and subsegmental emboli with right heart strain, bibasilar airspace consolidation and trace right pleural effusion compatible with pneumonia. Vascular surgery was consulted for thrombolysis. Patient was admitted to the hospitalist service. Patient has no histry of smoking, alcohol or drug abuse. 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 No known allergies. Patient transfered to Telemetry. Patient Sleeping and weak and resting on 2 litres O2. O2 saturation running 100%. No acute respiratory distress at rest. Patient afebrile. Has leukocytosis. Blood pressure 160/83. Pulse 71. Chest xray 11/14/20 reported Faint ill-defined densities within the lower lungs have not significantly improved from yesterday's exam. No pneumothorax. Patient is on Apixaban, Zyvox, and protonix. - Patient Problems (1) Acute respiratory failure with hypoxia Current Visit: Yes Status: Resolved Plan to address problem: Patient intubated and extubated. patient presently on 2 litres O2. Apixaban Protonix. (2) Acute massive pulmonary embolism Current Visit: Yes Status: Acute Plan to address problem: Patient is on Apixaban. (3) Bilateral pneumonia Current Visit: Yes Status: Acute Plan to address problem: Patient is on Zyvox. (4) Left leg DVT Current Visit: Yes Status: Acute Plan to address problem: Patient is on Apixaban. (5) Non-STEMI (non-ST elevated myocardial infarction) Current Visit: Yes Status: Acute Plan to address problem: Management as per Cardiology. (6) Paroxysmal atrial fibrillation Current Visit: Yes Status: Acute Plan to address problem: Patient is on Apixaban. Management as per cardiology. (7) Hypertension Current Visit: Yes Status: Chronic Qualifiers: Hypertension type: primary hypertension Qualified Code(s): I10 - Essential (primary) hypertension Plan to address problem: Management as per primary care. (8) Acute kidney injury Current Visit: Yes Status: Acute Plan to address problem: Management as per nephrology. (9) Cardiopulmonary arrest Current Visit: Yes Status: Resolved Plan to address problem: Patient resucitated and ROSC. Subjective Date of service: 11/18/20 Principal diagnosis: Ac. hypoxemic resp failure; P.E.; PNA; Cardiac arrest; TYLER; Shock Interval history: This is a 84-year-old female with HTN, CKD, chronic RBBB, arthritis who presen laurence to the emergency department on 11/09 from the department With valuation of difficulty breathing and shortness of breath. Upon arrival to the emergency department patient was actively unresponsive and positive pressure ventilation was started and subsequently had a cardiac arrest with eventual ROSC. Work-up emergency department revealed elevated D-dimer of greater than 10,000, elevated lactic acid, CTA showed bilateral segmental and subsegmental emboli with right heart strain, bibasilar airspace consolidation and trace right pleural effusion compatible with pneumonia. Vascular surgery was consulted for thrombolysis. Patient was admitted to the hospitalist service. Patient has no histry of smoking, alcohol or drug abuse. 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 No known allergies. Patient transfered to Telemetry. Patient Sleeping and weak and resting on 2 litres O2. O2 saturation running 100%. No acute respiratory distress at rest. Patient afebrile. Has leukocytosis. Blood pressure 160/83. Pulse 71. Chest xray 11/14/20 reported Faint ill-defined densities within the lower lungs have not significantly improved from yesterday's exam. No pneumothorax. Patient is on Apixaban, Zyvox, and protonix. Objective Vital Signs - 12hr 11/18/20 11/18/20 11/18/20 08:00 08:56 10:00 Temperature 97.9 F Pulse Rate 76 70 Pulse Rate [ 98 H From Monitor] Respiratory 28 H 18 Rate Blood Pressure 145/64 O2 Sat by Pulse 97 98 99 Oximetry Constitutional: no acute distress, asleep, other (elderly obese female with mildly increased respiratory effort at rest and weak.) Eyes: non-icteric ENT: oropharynx moist Neck: supple, no lymphadenopathy, no JVD Effort: normal Ascultation: Bilateral: diminished breath sounds, rhonchi (scant bases) Percussion: Bilateral: not dull Cardiovascular: regular rate and rhythm Gastrointestinal: normoactive bowel sounds, soft, non-tender, non-distended (protuberant) Integumentary: normal Extremities: no cyanosis, pulses normal, no ischemia or petechiae Neurologic: non-focal exam (grossly), pupils equal and round, CN II-XII normal Psychiatric: mood appropriate, affect normal CBC and BMP: 11/17/20 04:48 11/15/20 23:08 ABG, PT/INR, D-dimer: ABG ABG pH 7.427 pH Units (7.350-7.450) 11/14/20 12:15 POC ABG pCO2 33.5 mmHg (32.0-48.0) 11/13/20 04:03 ABG pCO2 31.2 mm Hg 11/14/20 12:15 POC ABG pO2 145.7 mmHg (83-108) H 11/13/20 04:03 ABG pO2 94.7 mm Hg (80.0-90.0) H 11/14/20 12:15 POC ABG HCO3 17.9 11/13/20 04:03 ABG O2 Saturation 97.6 % (95.0-99.0) 11/14/20 12:15 PT/INR, D-dimer PT 15.4 Sec. (12.2-14.9) H 11/15/20 23:08 INR 1.17 (0.87-1.13) H 11/15/20 23:08 D-Dimer > 97451 ng/mlDDU (0-234) H 11/10/20 04:28 Abnormal lab findings: Abnormal Labs 11/09/20 11/09/20 11/09/20 17:24 17:24 17:24 WBC RBC 3.29 L Hgb Hct RDW Plt Count 100 L Lymph % (Auto) 54.6 H [place] % (Auto) [place] # (Auto) Seg Neutrophils % 38.5 L Seg Neuts % (Manual) Lymphocytes % (Manual) Seg Neutrophils # Seg Neutrophils # Man Lymphocytes # (Manual) PT 19.9 H INR 1.64 H APTT 49.2 H Fibrinogen D-Dimer > 89154 H Heparin Anti-Xa Level ABG pH POC ABG pO2 ABG pO2 ABG HCO3 ABG O2 Saturation ABG Base Excess ABG Hemoglobin ABG Oxyhemoglobin ABG Sodium ABG Potassium ABG Chloride ABG Glucose Oxyhemoglobin Carboxyhemoglobin Sodium Potassium 2.9 L* Chloride Carbon Dioxide 13 L BUN Creatinine 1.4 H Glucose 391 H POC Glucose Lactic Acid Calcium Phosphorus Magnesium AST ALT Lactate Dehydrogenase Total Creatine Kinase CK-MB (CK-2) 5.0 H CK-MB (CK-2) Rel Index 4.8 H Troponin T 0.263 H* C-Reactive Protein NT-Pro-B Natriuret Pep Total Protein Albumin Triglycerides 163 H HDL Cholesterol 29 L Arterial Blood Glucose Arterial Blood Ionized Calcium Urine Creatinine Urine Chloride Crossmatch 11/09/20 11/09/20 11/09/20 17:24 17:24 18:11 WBC RBC Hgb Hct RDW Plt Count Lymph % (Auto) [place] % (Auto) [place] # (Auto) Seg Neutrophils % Seg Neuts % (Manual) Lymphocytes % (Manual) Seg Neutrophils # Seg Neutrophils # Man Lymphocytes # (Manual) PT INR APTT Fibrinogen D-Dimer Heparin Anti-Xa Level ABG pH POC ABG pO2 ABG pO2 ABG HCO3 ABG O2 Saturation ABG Base Excess ABG Hemoglobin ABG Oxyhemoglobin ABG Sodium ABG Potassium ABG Chloride ABG Glucose Oxyhemoglobin Carboxyhemoglobin Sodium Potassium Chloride Carbon Dioxide BUN Creatinine Glucose POC Glucose Lactic Acid 11.40 H* Calcium Phosphorus Magnesium AST 312 H ALT 273 H Lactate Dehydrogenase Total Creatine Kinase CK-MB (CK-2) CK-MB (CK-2) Rel Index Troponin T C-Reactive Protein NT-Pro-B Natriuret Pep 1169 H Total Protein 5.2 L Albumin 2.8 L Triglycerides HDL Cholesterol Arterial Blood Glucose Arterial Blood Ionized Calcium Urine Creatinine Urine Chloride Crossmatch See Detail 11/09/20 11/09/20 11/09/20 18:21 20:07 20:07 WBC RBC Hgb Hct RDW Plt Count Lymph % (Auto) [place] % (Auto) [place] # (Auto) Seg Neutrophils % Seg Neuts % (Manual) Lymphocytes % (Manual) Seg Neutrophils # Seg Neutrophils # Man Lymphocytes # (Manual) PT INR APTT Fibrinogen D-Dimer Heparin Anti-Xa Level ABG pH 7.053 L POC ABG pO2 159.6 H ABG pO2 ABG HCO3 ABG O2 Saturation ABG Base Excess ABG Hemoglobin ABG Oxyhemoglobin ABG Sodium 135.1 L ABG Potassium ABG Chloride ABG Glucose 421 H Oxyhemoglobin Carboxyhemoglobin 0.3 L Sodium Potassium Chloride Carbon Dioxide BUN Creatinine Glucose POC Glucose Lactic Acid 9.00 H* Calcium Phosphorus Magnesium AST ALT Lactate Dehydrogenase Total Creatine Kinase 340 H CK-MB (CK-2) 14.2 H CK-MB (CK-2) Rel Index 4.1 H Troponin T 0.553 H* D C-Reactive Protein NT-Pro-B Natriuret Pep Total Protein Albumin Triglycerides HDL Cholesterol Arterial Blood Glucose 421 H Arterial Blood Ionized Calcium Urine Creatinine Urine Chloride Crossmatch 11/09/20 11/09/20 11/10/20 23:05 23:05 00:42 WBC RBC Hgb Hct RDW Plt Count Lymph % (Auto) [place] % (Auto) [place] # (Auto) Seg Neutrophils % Seg Neuts % (Manual) Lymphocytes % (Manual) Seg Neutrophils # Seg Neutrophils # Man Lymphocytes # (Manual) PT 19.8 H INR 1.63 H APTT Fibrinogen 210 L D-Dimer Heparin Anti-Xa Level 0.79 H ABG pH POC ABG pO2 ABG pO2 ABG HCO3 ABG O2 Saturation ABG Base Excess ABG Hemoglobin ABG Oxyhemoglobin ABG Sodium ABG Potassium ABG Chloride ABG Glucose Oxyhemoglobin Carboxyhemoglobin Sodium Potassium Chloride Carbon Dioxide BUN Creatinine Glucose POC Glucose Lactic Acid 6.80 H* Calcium Phosphorus Magnesium AST ALT Lactate Dehydrogenase Total Creatine Kinase 449 H CK-MB (CK-2) 18.4 H CK-MB (CK-2) Rel Index Troponin T 0.873 H* D C-Reactive Protein NT-Pro-B Natriuret Pep Total Protein Albumin Triglycerides HDL Cholesterol Arterial Blood Glucose Arterial Blood Ionized Calcium Urine Creatinine Urine Chloride Crossmatch 11/10/20 11/10/20 11/10/20 04:28 04:28 04:28 WBC RBC Hgb Hct RDW Plt Count Lymph % (Auto) [place] % (Auto) [place] # (Auto) Seg Neutrophils % Seg Neuts % (Manual) Lymphocytes % (Manual) Seg Neutrophils # Seg Neutrophils # Man Lymphocytes # (Manual) PT 20.3 H INR 1.69 H APTT Fibrinogen D-Dimer > 72004 H Heparin Anti-Xa Level ABG pH POC ABG pO2 ABG pO2 ABG HCO3 ABG O2 Saturation ABG Base Excess ABG Hemoglobin ABG Oxyhemoglobin ABG Sodium ABG Potassium ABG Chloride ABG Glucose Oxyhemoglobin Carboxyhemoglobin Sodium 136 L Potassium 3.3 L Chloride Carbon Dioxide 16 L BUN 21 H Creatinine 1.8 H Glucose 376 H POC Glucose Lactic Acid Calcium Phosphorus Magnesium AST ALT Lactate Dehydrogenase 1637 H Total Creatine Kinase CK-MB (CK-2) CK-MB (CK-2) Rel Index Troponin T C-Reactive Protein 3.50 H NT-Pro-B Natriuret Pep Total Protein Albumin Triglycerides HDL Cholesterol Arterial Blood Glucose Arterial Blood Ionized Calcium Urine Creatinine Urine Chloride Crossmatch 11/10/20 11/10/20 11/10/20 04:28 04:28 05:13 WBC 17.7 H RBC Hgb Hct RDW Plt Count Lymph % (Auto) [place] % (Auto) [place] # (Auto) Seg Neutrophils % Seg Neuts % (Manual) 96.0 H Lymphocytes % (Manual) 1.0 L Seg Neutrophils # Seg Neutrophils # Man 17.0 H Lymphocytes # (Manual) 0.2 L PT INR APTT Fibrinogen D-Dimer Heparin Anti-Xa Level ABG pH 7.221 L POC ABG pO2 162.0 H ABG pO2 ABG HCO3 ABG O2 Saturation ABG Base Excess ABG Hemoglobin 11.7 L ABG Oxyhemoglobin 98.9 H ABG Sodium 133.6 L ABG Potassium 3.1 L ABG Chloride ABG Glucose 346 H Oxyhemoglobin Carboxyhemoglobin 0.1 L Sodium Potassium Chloride Carbon Dioxide BUN Creatinine Glucose POC Glucose Lactic Acid 6.10 H* Calcium Phosphorus Magnesium AST ALT Lactate Dehydrogenase Total Creatine Kinase CK-MB (CK-2) CK-MB (CK-2) Rel Index Troponin T C-Reactive Protein NT-Pro-B Natriuret Pep Total Protein Albumin Triglycerides HDL Cholesterol Arterial Blood Glucose 346 H Arterial Blood Ionized Calcium Urine Creatinine Urine Chloride Crossmatch 11/10/20 11/10/20 11/10/20 11:06 12:30 15:08 WBC 16.1 H RBC 3.20 L Hgb 9.7 L Hct 29.5 L RDW Plt Count Lymph % (Auto) 7.4 L [place] % (Auto) 8.7 H [place] # (Auto) 1.4 H Seg Neutrophils % 83.7 H Seg Neuts % (Manual) Lymphocytes % (Manual) Seg Neutrophils # 13.5 H Seg Neutrophils # Man Lymphocytes # (Manual) PT 18.9 H INR 1.53 H APTT 204.8 H* Fibrinogen D-Dimer Heparin Anti-Xa Level 0.76 H ABG pH POC ABG pO2 ABG pO2 ABG HCO3 ABG O2 Saturation ABG Base Excess ABG Hemoglobin ABG Oxyhemoglobin ABG Sodium ABG Potassium ABG Chloride ABG Glucose Oxyhemoglobin Carboxyhemoglobin Sodium Potassium Chloride Carbon Dioxide BUN Creatinine Glucose POC Glucose Lactic Acid Calcium Phosphorus Magnesium AST ALT Lactate Dehydrogenase Total Creatine Kinase CK-MB (CK-2) CK-MB (CK-2) Rel Index Troponin T C-Reactive Protein NT-Pro-B Natriuret Pep Total Protein Albumin Triglycerides HDL Cholesterol Arterial Blood Glucose Arterial Blood Ionized Calcium Urine Creatinine 80.9 H Urine Chloride 38.8 L Crossmatch 11/10/20 11/10/20 11/10/20 15:08 17:17 18:25 WBC RBC Hgb Hct RDW Plt Count Lymph % (Auto) [place] % (Auto) [place] # (Auto) Seg Neutrophils % Seg Neuts % (Manual) Lymphocytes % (Manual) Seg Neutrophils # Seg Neutrophils # Man Lymphocytes # (Manual) PT INR APTT Fibrinogen D-Dimer Heparin Anti-Xa Level ABG pH 7.206 L POC ABG pO2 ABG pO2 ABG HCO3 18.3 L ABG O2 Saturation ABG Base Excess -9.2 L ABG Hemoglobin 9.4 L ABG Oxyhemoglobin ABG Sodium ABG Potassium ABG Chloride ABG Glucose Oxyhemoglobin 94.3 L Carboxyhemoglobin Sodium Potassium Chloride Carbon Dioxide BUN Creatinine Glucose POC Glucose 200 H Lactic Acid 4.10 H* Calcium Phosphorus Magnesium AST ALT Lactate Dehydrogenase Total Creatine Kinase CK-MB (CK-2) CK-MB (CK-2) Rel Index Troponin T C-Reactive Protein NT-Pro-B Natriuret Pep Total Protein Albumin Triglycerides HDL Cholesterol Arterial Blood Glucose Arterial Blood Ionized Calcium Urine Creatinine Urine Chloride Crossmatch 11/10/20 11/10/20 11/10/20 19:54 20:21 21:13 WBC RBC Hgb 9.7 L Hct 28.4 L RDW Plt Count Lymph % (Auto) [place] % (Auto) [place] # (Auto) Seg Neutrophils % Seg Neuts % (Manual) Lymphocytes % (Manual) Seg Neutrophils # Seg Neutrophils # Man Lymphocytes # (Manual) PT INR APTT Fibrinogen D-Dimer Heparin Anti-Xa Level 0.13 L ABG pH 7.297 L POC ABG pO2 ABG pO2 ABG HCO3 ABG O2 Saturation ABG Base Excess ABG Hemoglobin 7.3 L ABG Oxyhemoglobin ABG Sodium 135.6 L ABG Potassium ABG Chloride 111.0 H ABG Glucose 153 H Oxyhemoglobin Carboxyhemoglobin Sodium Potassium Chloride Carbon Dioxide BUN Creatinine Glucose POC Glucose Lactic Acid Calcium Phosphorus Magnesium AST ALT Lactate Dehydrogenase Total Creatine Kinase CK-MB (CK-2) CK-MB (CK-2) Rel Index Troponin T C-Reactive Protein NT-Pro-B Natriuret Pep Total Protein Albumin Triglycerides HDL Cholesterol Arterial Blood Glucose 153 H Arterial Blood Ionized Calcium Urine Creatinine Urine Chloride Crossmatch 11/10/20 11/11/20 11/11/20 23:30 04:12 04:35 WBC 16.0 H RBC 2.83 L Hgb 8.7 L Hct 25.8 L RDW Plt Count Lymph % (Auto) [place] % (Auto) [place] # (Auto) Seg Neutrophils % Seg Neuts % (Manual) Lymphocytes % (Manual) Seg Neutrophils # Seg Neutrophils # Man Lymphocytes # (Manual) PT INR APTT Fibrinogen D-Dimer Heparin Anti-Xa Level 0.29 L ABG pH POC ABG pO2 ABG pO2 ABG HCO3 ABG O2 Saturation ABG Base Excess ABG Hemoglobin ABG Oxyhemoglobin ABG Sodium ABG Potassium ABG Chloride ABG Glucose Oxyhemoglobin Carboxyhemoglobin Sodium Potassium Chloride Carbon Dioxide BUN Creatinine Glucose POC Glucose 166 H Lactic Acid Calcium Phosphorus Magnesium AST ALT Lactate Dehydrogenase Total Creatine Kinase CK-MB (CK-2) CK-MB (CK-2) Rel Index Troponin T C-Reactive Protein NT-Pro-B Natriuret Pep Total Protein Albumin Triglycerides HDL Cholesterol Arterial Blood Glucose Arterial Blood Ionized Calcium Urine Creatinine Urine Chloride Crossmatch 11/11/20 11/11/20 11/11/20 04:35 05:00 05:01 WBC RBC Hgb Hct RDW Plt Count Lymph % (Auto) [place] % (Auto) [place] # (Auto) Seg Neutrophils % Seg Neuts % (Manual) Lymphocytes % (Manual) Seg Neutrophils # Seg Neutrophils # Man Lymphocytes # (Manual) PT INR APTT Fibrinogen D-Dimer Heparin Anti-Xa Level ABG pH POC ABG pO2 ABG pO2 ABG HCO3 ABG O2 Saturation ABG Base Excess ABG Hemoglobin ABG Oxyhemoglobin ABG Sodium ABG Potassium ABG Chloride ABG Glucose Oxyhemoglobin Carboxyhemoglobin Sodium 136 L Potassium Chloride Carbon Dioxide 17 L BUN 25 H Creatinine 2.5 H Glucose 192 H POC Glucose 191 H Lactic Acid 2.20 H* Calcium 7.6 L Phosphorus Magnesium AST 232 H ALT 309 H Lactate Dehydrogenase Total Creatine Kinase CK-MB (CK-2) CK-MB (CK-2) Rel Index Troponin T C-Reactive Protein NT-Pro-B Natriuret Pep Total Protein 5.7 L Albumin 2.7 L Triglycerides HDL Cholesterol Arterial Blood Glucose Arterial Blood Ionized Calcium Urine Creatinine Urine Chloride Crossmatch 11/11/20 11/11/20 11/11/20 09:45 12:34 14:40 WBC RBC Hgb Hct RDW Plt Count Lymph % (Auto) [place] % (Auto) [place] # (Auto) Seg Neutrophils % Seg Neuts % (Manual) Lymphocytes % (Manual) Seg Neutrophils # Seg Neutrophils # Man Lymphocytes # (Manual) PT INR APTT Fibrinogen D-Dimer Heparin Anti-Xa Level ABG pH POC ABG pO2 ABG pO2 172.4 H ABG HCO3 16.7 L ABG O2 Saturation 99.1 H ABG Base Excess -7.9 L ABG Hemoglobin 6.1 L ABG Oxyhemoglobin ABG Sodium ABG Potassium ABG Chloride ABG Glucose Oxyhemoglobin Carboxyhemoglobin Sodium Potassium Chloride Carbon Dioxide BUN Creatinine Glucose POC Glucose 141 H Lactic Acid 2.70 H* Calcium Phosphorus Magnesium AST ALT Lactate Dehydrogenase Total Creatine Kinase CK-MB (CK-2) CK-MB (CK-2) Rel Index Troponin T C-Reactive Protein NT-Pro-B Natriuret Pep Total Protein Albumin Triglycerides HDL Cholesterol Arterial Blood Glucose Arterial Blood Ionized Calcium Urine Creatinine Urine Chloride Crossmatch 11/11/20 11/11/20 11/11/20 17:06 21:00 23:20 WBC RBC Hgb 7.1 L Hct 20.9 L RDW Plt Count Lymph % (Auto) [place] % (Auto) [place] # (Auto) Seg Neutrophils % Seg Neuts % (Manual) Lymphocytes % (Manual) Seg Neutrophils # Seg Neutrophils # Man Lymphocytes # (Manual) PT INR APTT Fibrinogen D-Dimer Heparin Anti-Xa Level ABG pH 7.287 L POC ABG pO2 ABG pO2 ABG HCO3 ABG O2 Saturation ABG Base Excess ABG Hemoglobin 7.5 L ABG Oxyhemoglobin ABG Sodium 134.1 L ABG Potassium ABG Chloride 110.0 H ABG Glucose 141 H Oxyhemoglobin Carboxyhemoglobin Sodium Potassium Chloride Carbon Dioxide BUN Creatinine Glucose POC Glucose 157 H Lactic Acid Calcium Phosphorus Magnesium AST ALT Lactate Dehydrogenase Total Creatine Kinase CK-MB (CK-2) CK-MB (CK-2) Rel Index Troponin T C-Reactive Protein NT-Pro-B Natriuret Pep Total Protein Albumin Triglycerides HDL Cholesterol Arterial Blood Glucose 141 H Arterial Blood Ionized Calcium 4.2 L Urine Creatinine Urine Chloride Crossmatch 11/11/20 11/12/20 11/12/20 23:30 04:26 04:26 WBC 16.8 H RBC 2.25 L Hgb 6.8 L Hct 20.5 L RDW Plt Count Lymph % (Auto) [place] % (Auto) [place] # (Auto) Seg Neutrophils % Seg Neuts % (Manual) Lymphocytes % (Manual) Seg Neutrophils # Seg Neutrophils # Man Lymphocytes # (Manual) PT INR APTT Fibrinogen D-Dimer Heparin Anti-Xa Level ABG pH POC ABG pO2 ABG pO2 ABG HCO3 ABG O2 Saturation ABG Base Excess ABG Hemoglobin ABG Oxyhemoglobin ABG Sodium ABG Potassium ABG Chloride ABG Glucose Oxyhemoglobin Carboxyhemoglobin Sodium Potassium Chloride 110.1 H Carbon Dioxide 18 L BUN 25 H Creatinine 2.4 H Glucose 146 H POC Glucose 127 H Lactic Acid Calcium 7.4 L Phosphorus Magnesium AST ALT Lactate Dehydrogenase Total Creatine Kinase CK-MB (CK-2) CK-MB (CK-2) Rel Index Troponin T C-Reactive Protein NT-Pro-B Natriuret Pep Total Protein Albumin Triglycerides HDL Cholesterol Arterial Blood Glucose Arterial Blood Ionized Calcium Urine Creatinine Urine Chloride Crossmatch 11/12/20 11/12/20 11/12/20 04:26 06:01 12:02 WBC RBC Hgb Hct RDW Plt Count Lymph % (Auto) [place] % (Auto) [place] # (Auto) Seg Neutrophils % Seg Neuts % (Manual) Lymphocytes % (Manual) Seg Neutrophils # Seg Neutrophils # Man Lymphocytes # (Manual) PT 17.6 H INR 1.40 H APTT 162.1 H* Fibrinogen D-Dimer Heparin Anti-Xa Level ABG pH POC ABG pO2 ABG pO2 ABG HCO3 ABG O2 Saturation ABG Base Excess ABG Hemoglobin ABG Oxyhemoglobin ABG Sodium ABG Potassium ABG Chloride ABG Glucose Oxyhemoglobin Carboxyhemoglobin Sodium Potassium Chloride Carbon Dioxide BUN Creatinine Glucose POC Glucose 134 H 131 H Lactic Acid Calcium Phosphorus Magnesium AST ALT Lactate Dehydrogenase Total Creatine Kinase CK-MB (CK-2) CK-MB (CK-2) Rel Index Troponin T C-Reactive Protein NT-Pro-B Natriuret Pep Total Protein Albumin Triglycerides HDL Cholesterol Arterial Blood Glucose Arterial Blood Ionized Calcium Urine Creatinine Urine Chloride Crossmatch 11/12/20 11/12/20 11/12/20 12:05 12:34 17:26 WBC RBC Hgb 6.8 L Hct 20.3 L RDW Plt Count Lymph % (Auto) [place] % (Auto) [place] # (Auto) Seg Neutrophils % Seg Neuts % (Manual) Lymphocytes % (Manual) Seg Neutrophils # Seg Neutrophils # Man Lymphocytes # (Manual) PT INR APTT Fibrinogen D-Dimer Heparin Anti-Xa Level ABG pH 7.297 L POC ABG pO2 ABG pO2 ABG HCO3 ABG O2 Saturation ABG Base Excess ABG Hemoglobin 7.3 L ABG Oxyhemoglobin ABG Sodium 135.6 L ABG Potassium ABG Chloride 111.0 H ABG Glucose 153 H Oxyhemoglobin Carboxyhemoglobin Sodium Potassium Chloride Carbon Dioxide BUN Creatinine Glucose POC Glucose 119 H Lactic Acid Calcium Phosphorus Magnesium AST ALT Lactate Dehydrogenase Total Creatine Kinase CK-MB (CK-2) CK-MB (CK-2) Rel Index Troponin T C-Reactive Protein NT-Pro-B Natriuret Pep Total Protein Albumin Triglycerides HDL Cholesterol Arterial Blood Glucose 153 H Arterial Blood Ionized Calcium Urine Creatinine Urine Chloride Crossmatch 11/12/20 11/13/20 11/13/20 23:49 02:11 02:11 WBC 15.9 H RBC 2.38 L Hgb 7.1 L Hct 21.3 L RDW Plt Count Lymph % (Auto) [place] % (Auto) 8.9 H [place] # (Auto) 1.4 H Seg Neutrophils % 73.5 H Seg Neuts % (Manual) Lymphocytes % (Manual) Seg Neutrophils # 11.7 H Seg Neutrophils # Man Lymphocytes # (Manual) PT INR APTT Fibrinogen D-Dimer Heparin Anti-Xa Level ABG pH POC ABG pO2 ABG pO2 ABG HCO3 ABG O2 Saturation ABG Base Excess ABG Hemoglobin ABG Oxyhemoglobin ABG Sodium ABG Potassium ABG Chloride ABG Glucose Oxyhemoglobin Carboxyhemoglobin Sodium Potassium Chloride 109.8 H Carbon Dioxide 18 L BUN 26 H Creatinine 2.3 H Glucose 109 H POC Glucose 118 H Lactic Acid Calcium 7.7 L Phosphorus Magnesium AST ALT Lactate Dehydrogenase Total Creatine Kinase CK-MB (CK-2) CK-MB (CK-2) Rel Index Troponin T C-Reactive Protein NT-Pro-B Natriuret Pep Total Protein Albumin Triglycerides HDL Cholesterol Arterial Blood Glucose Arterial Blood Ionized Calcium Urine Creatinine Urine Chloride Crossmatch 11/13/20 11/13/20 11/13/20 04:03 06:01 07:50 WBC RBC Hgb 7.7 L Hct 23.3 L RDW Plt Count Lymph % (Auto) [place] % (Auto) [place] # (Auto) Seg Neutrophils % Seg Neuts % (Manual) Lymphocytes % (Manual) Seg Neutrophils # Seg Neutrophils # Man Lymphocytes # (Manual) PT INR APTT Fibrinogen D-Dimer Heparin Anti-Xa Level ABG pH POC ABG pO2 145.7 H ABG pO2 ABG HCO3 ABG O2 Saturation ABG Base Excess ABG Hemoglobin 7.2 L ABG Oxyhemoglobin ABG Sodium 135.3 L ABG Potassium ABG Chloride 113.0 H ABG Glucose 108 H Oxyhemoglobin Carboxyhemoglobin Sodium Potassium Chloride Carbon Dioxide BUN Creatinine Glucose POC Glucose 108 H Lactic Acid Calcium Phosphorus Magnesium AST ALT Lactate Dehydrogenase Total Creatine Kinase CK-MB (CK-2) CK-MB (CK-2) Rel Index Troponin T C-Reactive Protein NT-Pro-B Natriuret Pep Total Protein Albumin Triglycerides HDL Cholesterol Arterial Blood Glucose 108 H Arterial Blood Ionized Calcium 4.3 L Urine Creatinine Urine Chloride Crossmatch 11/13/20 11/13/20 11/13/20 12:00 14:30 17:10 WBC RBC Hgb 7.5 L Hct 22.6 L RDW Plt Count Lymph % (Auto) [place] % (Auto) [place] # (Auto) Seg Neutrophils % Seg Neuts % (Manual) Lymphocytes % (Manual) Seg Neutrophils # Seg Neutrophils # Man Lymphocytes # (Manual) PT INR APTT Fibrinogen D-Dimer Heparin Anti-Xa Level ABG pH POC ABG pO2 ABG pO2 ABG HCO3 ABG O2 Saturation ABG Base Excess ABG Hemoglobin ABG Oxyhemoglobin ABG Sodium ABG Potassium ABG Chloride ABG Glucose Oxyhemoglobin Carboxyhemoglobin Sodium Potassium Chloride Carbon Dioxide BUN Creatinine Glucose POC Glucose 147 H 110 H Lactic Acid Calcium Phosphorus Magnesium AST ALT Lactate Dehydrogenase Total Creatine Kinase CK-MB (CK-2) CK-MB (CK-2) Rel Index Troponin T C-Reactive Protein NT-Pro-B Natriuret Pep Total Protein Albumin Triglycerides HDL Cholesterol Arterial Blood Glucose Arterial Blood Ionized Calcium Urine Creatinine Urine Chloride Crossmatch 11/13/20 11/14/2011/14/21 21:22 12:15 14:50 WBC RBC Hgb Hct RDW Plt Count Lymph % (Auto) [place] % (Auto) [place] # (Auto) Seg Neutrophils % Seg Neuts % (Manual) Lymphocytes % (Manual) Seg Neutrophils # Seg Neutrophils # Man Lymphocytes # (Manual) PT INR APTT Fibrinogen D-Dimer Heparin Anti-Xa Level 0.10 L ABG pH POC ABG pO2 ABG pO2 97.2 H 94.7 H ABG HCO3 18.6 L ABG O2 Saturation ABG Base Excess -6.1 L -3.7 L ABG Hemoglobin 9.2 L 8.3 L ABG Oxyhemoglobin ABG Sodium ABG Potassium ABG Chloride ABG Glucose Oxyhemoglobin Carboxyhemoglobin Sodium Potassium Chloride Carbon Dioxide BUN Creatinine Glucose POC Glucose Lactic Acid Calcium Phosphorus Magnesium AST ALT Lactate Dehydrogenase Total Creatine Kinase CK-MB (CK-2) CK-MB (CK-2) Rel Index Troponin T C-Reactive Protein NT-Pro-B Natriuret Pep Total Protein Albumin Triglycerides HDL Cholesterol Arterial Blood Glucose Arterial Blood Ionized Calcium Urine Creatinine Urine Chloride Crossmatch 11/14/20 11/14/20 11/14/20 14:50 17:53 Unknown WBC 15.9 H RBC 2.61 L Hgb 7.8 L Hct 23.1 L RDW Plt Count Lymph % (Auto) [place] % (Auto) [place] # (Auto) Seg Neutrophils % Seg Neuts % (Manual) Lymphocytes % (Manual) Seg Neutrophils # Seg Neutrophils # Man Lymphocytes # (Manual) PT INR APTT Fibrinogen D-Dimer Heparin Anti-Xa Level ABG pH POC ABG pO2 ABG pO2 ABG HCO3 ABG O2 Saturation ABG Base Excess ABG Hemoglobin ABG Oxyhemoglobin ABG Sodium ABG Potassium ABG Chloride ABG Glucose Oxyhemoglobin Carboxyhemoglobin Sodium Potassium Chloride Carbon Dioxide BUN Creatinine Glucose POC Glucose 113 H Lactic Acid Calcium Phosphorus Magnesium AST ALT Lactate Dehydrogenase Total Creatine Kinase CK-MB (CK-2) CK-MB (CK-2) Rel Index Troponin T C-Reactive Protein 9.40 H NT-Pro-B Natriuret Pep Total Protein Albumin Triglycerides HDL Cholesterol Arterial Blood Glucose Arterial Blood Ionized Calcium Urine Creatinine Urine Chloride Crossmatch 11/14/20 11/15/20 11/15/20 Unknown 00:10 02:46 WBC 15.2 H RBC 2.83 L Hgb 8.7 L Hct 25.6 L RDW Plt Count Lymph % (Auto) [place] % (Auto) [place] # (Auto) Seg Neutrophils % Seg Neuts % (Manual) Lymphocytes % (Manual) Seg Neutrophils # Seg Neutrophils # Man Lymphocytes # (Manual) PT INR APTT Fibrinogen D-Dimer Heparin Anti-Xa Level 0.18 L ABG pH POC ABG pO2 ABG pO2 ABG HCO3 ABG O2 Saturation ABG Base Excess ABG Hemoglobin ABG Oxyhemoglobin ABG Sodium ABG Potassium ABG Chloride ABG Glucose Oxyhemoglobin Carboxyhemoglobin Sodium Potassium 3.3 L Chloride 107.8 H Carbon Dioxide 18 L BUN 22 H Creatinine 1.7 H Glucose POC Glucose Lactic Acid Calcium 8.2 L Phosphorus 1.70 L Magnesium 1.40 L AST ALT 88 H Lactate Dehydrogenase Total Creatine Kinase CK-MB (CK-2) CK-MB (CK-2) Rel Index Troponin T C-Reactive Protein NT-Pro-B Natriuret Pep Total Protein 6.0 L Albumin 2.7 L Triglycerides HDL Cholesterol Arterial Blood Glucose Arterial Blood Ionized Calcium Urine Creatinine Urine Chloride Crossmatch 11/15/20 11/15/20 11/15/20 02:46 06:36 08:20 WBC RBC Hgb Hct RDW Plt Count Lymph % (Auto) [place] % (Auto) [place] # (Auto) Seg Neutrophils % Seg Neuts % (Manual) Lymphocytes % (Manual) Seg Neutrophils # Seg Neutrophils # Man Lymphocytes # (Manual) PT INR APTT Fibrinogen D-Dimer Heparin Anti-Xa Level 0.12 L ABG pH POC ABG pO2 ABG pO2 ABG HCO3 ABG O2 Saturation ABG Base Excess ABG Hemoglobin ABG Oxyhemoglobin ABG Sodium ABG Potassium ABG Chloride ABG Glucose Oxyhemoglobin Carboxyhemoglobin Sodium Potassium 3.5 L Chloride Carbon Dioxide 17 L BUN 22 H Creatinine 1.7 H Glucose POC Glucose 107 H Lactic Acid Calcium 8.2 L Phosphorus Magnesium AST ALT Lactate Dehydrogenase Total Creatine Kinase CK-MB (CK-2) CK-MB (CK-2) Rel Index Troponin T C-Reactive Protein NT-Pro-B Natriuret Pep Total Protein Albumin Triglycerides HDL Cholesterol Arterial Blood Glucose Arterial Blood Ionized Calcium Urine Creatinine Urine Chloride Crossmatch 11/15/20 11/15/20 11/15/20 11:35 15:56 16:06 WBC RBC Hgb Hct RDW Plt Count Lymph % (Auto) [place] % (Auto) [place] # (Auto) Seg Neutrophils % Seg Neuts % (Manual) Lymphocytes % (Manual) Seg Neutrophils # Seg Neutrophils # Man Lymphocytes # (Manual) PT INR APTT Fibrinogen D-Dimer Heparin Anti-Xa Level 0.14 L ABG pH POC ABG pO2 ABG pO2 ABG HCO3 ABG O2 Saturation ABG Base Excess ABG Hemoglobin ABG Oxyhemoglobin ABG Sodium ABG Potassium ABG Chloride ABG Glucose Oxyhemoglobin Carboxyhemoglobin Sodium Potassium Chloride Carbon Dioxide BUN Creatinine Glucose POC Glucose 145 H 118 H Lactic Acid Calcium Phosphorus Magnesium AST ALT Lactate Dehydrogenase Total Creatine Kinase CK-MB (CK-2) CK-MB (CK-2) Rel Index Troponin T C-Reactive Protein NT-Pro-B Natriuret Pep Total Protein Albumin Triglycerides HDL Cholesterol Arterial Blood Glucose Arterial Blood Ionized Calcium Urine Creatinine Urine Chloride Crossmatch 11/15/20 11/15/20 11/15/20 23:08 23:08 23:08 WBC 13.4 H RBC 2.72 L Hgb 8.3 L Hct 24.4 L RDW Plt Count Lymph % (Auto) [place] % (Auto) [place] # (Auto) Seg Neutrophils % Seg Neuts % (Manual) Lymphocytes % (Manual) Seg Neutrophils # Seg Neutrophils # Man Lymphocytes # (Manual) PT 15.4 H INR 1.17 H APTT 52.0 H Fibrinogen D-Dimer Heparin Anti-Xa Level 0.12 L ABG pH POC ABG pO2 ABG pO2 ABG HCO3 ABG O2 Saturation ABG Base Excess ABG Hemoglobin ABG Oxyhemoglobin ABG Sodium ABG Potassium ABG Chloride ABG Glucose Oxyhemoglobin Carboxyhemoglobin Sodium Potassium Chloride Carbon Dioxide BUN Creatinine Glucose POC Glucose Lactic Acid Calcium Phosphorus Magnesium AST ALT Lactate Dehydrogenase Total Creatine Kinase CK-MB (CK-2) CK-MB (CK-2) Rel Index Troponin T C-Reactive Protein NT-Pro-B Natriuret Pep Total Protein Albumin Triglycerides HDL Cholesterol Arterial Blood Glucose Arterial Blood Ionized Calcium Urine Creatinine Urine Chloride Crossmatch 11/15/20 11/15/20 11/16/20 23:08 23:32 05:14 WBC RBC Hgb Hct RDW Plt Count Lymph % (Auto) [place] % (Auto) [place] # (Auto) Seg Neutrophils % Seg Neuts % (Manual) Lymphocytes % (Manual) Seg Neutrophils # Seg Neutrophils # Man Lymphocytes # (Manual) PT INR APTT Fibrinogen D-Dimer Heparin Anti-Xa Level ABG pH POC ABG pO2 ABG pO2 ABG HCO3 ABG O2 Saturation ABG Base Excess ABG Hemoglobin ABG Oxyhemoglobin ABG Sodium ABG Potassium ABG Chloride ABG Glucose Oxyhemoglobin Carboxyhemoglobin Sodium Potassium Chloride Carbon Dioxide BUN Creatinine 1.6 H Glucose POC Glucose 120 H 141 H Lactic Acid Calcium Phosphorus Magnesium AST ALT Lactate Dehydrogenase Total Creatine Kinase CK-MB (CK-2) CK-MB (CK-2) Rel Index Troponin T C-Reactive Protein NT-Pro-B Natriuret Pep Total Protein Albumin Triglycerides HDL Cholesterol Arterial Blood Glucose Arterial Blood Ionized Calcium Urine Creatinine Urine Chloride Crossmatch 11/16/20 11/16/20 11/16/20 06:17 07:31 11:45 WBC RBC Hgb 8.8 L Hct 25.9 L RDW Plt Count Lymph % (Auto) [place] % (Auto) [place] # (Auto) Seg Neutrophils % Seg Neuts % (Manual) Lymphocytes % (Manual) Seg Neutrophils # Seg Neutrophils # Man Lymphocytes # (Manual) PT INR APTT Fibrinogen D-Dimer Heparin Anti-Xa Level ABG pH POC ABG pO2 ABG pO2 ABG HCO3 ABG O2 Saturation ABG Base Excess ABG Hemoglobin ABG Oxyhemoglobin ABG Sodium ABG Potassium ABG Chloride ABG Glucose Oxyhemoglobin Carboxyhemoglobin Sodium Potassium Chloride Carbon Dioxide BUN Creatinine Glucose POC Glucose 118 H 118 H Lactic Acid Calcium Phosphorus Magnesium AST ALT Lactate Dehydrogenase Total Creatine Kinase CK-MB (CK-2) CK-MB (CK-2) Rel Index Troponin T C-Reactive Protein NT-Pro-B Natriuret Pep Total Protein Albumin Triglycerides HDL Cholesterol Arterial Blood Glucose Arterial Blood Ionized Calcium Urine Creatinine Urine Chloride Crossmatch 11/16/20 11/16/20 11/16/20 15:58 17:17 21:24 WBC RBC Hgb Hct RDW Plt Count Lymph % (Auto) [place] % (Auto) [place] # (Auto) Seg Neutrophils % Seg Neuts % (Manual) Lymphocytes % (Manual) Seg Neutrophils # Seg Neutrophils # Man Lymphocytes # (Manual) PT INR APTT Fibrinogen D-Dimer Heparin Anti-Xa Level ABG pH POC ABG pO2 ABG pO2 ABG HCO3 ABG O2 Saturation ABG Base Excess ABG Hemoglobin ABG Oxyhemoglobin ABG Sodium ABG Potassium ABG Chloride ABG Glucose Oxyhemoglobin Carboxyhemoglobin Sodium Potassium Chloride Carbon Dioxide BUN Creatinine Glucose POC Glucose 153 H 132 H 132 H Lactic Acid Calcium Phosphorus Magnesium AST ALT Lactate Dehydrogenase Total Creatine Kinase CK-MB (CK-2) CK-MB (CK-2) Rel Index Troponin T C-Reactive Protein NT-Pro-B Natriuret Pep Total Protein Albumin Triglycerides HDL Cholesterol Arterial Blood Glucose Arterial Blood Ionized Calcium Urine Creatinine Urine Chloride Crossmatch 11/17/20 11/17/20 11/17/20 04:48 15:31 21:46 WBC 14.2 H RBC 2.85 L Hgb 8.5 L Hct 25.5 L RDW 15.5 H Plt Count Lymph % (Auto) [place] % (Auto) [place] # (Auto) Seg Neutrophils % Seg Neuts % (Manual) Lymphocytes % (Manual) Seg Neutrophils # Seg Neutrophils # Man Lymphocytes # (Manual) PT INR APTT Fibrinogen D-Dimer Heparin Anti-Xa Level ABG pH POC ABG pO2 ABG pO2 ABG HCO3 ABG O2 Saturation ABG Base Excess ABG Hemoglobin ABG Oxyhemoglobin ABG Sodium ABG Potassium ABG Chloride ABG Glucose Oxyhemoglobin Carboxyhemoglobin Sodium Potassium Chloride Carbon Dioxide BUN Creatinine Glucose POC Glucose 131 H 168 H Lactic Acid Calcium Phosphorus Magnesium AST ALT Lactate Dehydrogenase Total Creatine Kinase CK-MB (CK-2) CK-MB (CK-2) Rel Index Troponin T C-Reactive Protein NT-Pro-B Natriuret Pep Total Protein Albumin Triglycerides HDL Cholesterol Arterial Blood Glucose Arterial Blood Ionized Calcium Urine Creatinine Urine Chloride Crossmatch 11/18/20 11/18/20 11/18/20 07:39 11:39 15:54 WBC RBC Hgb Hct RDW Plt Count Lymph % (Auto) [place] % (Auto) [place] # (Auto) Seg Neutrophils % Seg Neuts % (Manual) Lymphocytes % (Manual) Seg Neutrophils # Seg Neutrophils # Man Lymphocytes # (Manual) PT INR APTT Fibrinogen D-Dimer Heparin Anti-Xa Level ABG pH POC ABG pO2 ABG pO2 ABG HCO3 ABG O2 Saturation ABG Base Excess ABG Hemoglobin ABG Oxyhemoglobin ABG Sodium ABG Potassium ABG Chloride ABG Glucose Oxyhemoglobin Carboxyhemoglobin Sodium Potassium Chloride Carbon Dioxide BUN Creatinine Glucose POC Glucose 177 H 185 H 127 H Lactic Acid Calcium Phosphorus Magnesium AST ALT Lactate Dehydrogenase Total Creatine Kinase CK-MB (CK-2) CK-MB (CK-2) Rel Index Troponin T C-Reactive Protein NT-Pro-B Natriuret Pep Total Protein Albumin Triglycerides HDL Cholesterol Arterial Blood Glucose Arterial Blood Ionized Calcium Urine Creatinine Urine Chloride Crossmatch Allied health notes reviewed: nursing
[2020-11-19] MEDS: dilTIAZem 60 MG TAB PO SCH (05:46)
[2020-11-19] MEDS: hydrALAZINE 25 MG TAB PO SCH ×3 (05:55→21:40)
[2020-11-19] MEDS: INSULIN REGULAR, HUMAN 100 UNITS/1 ML SUB-Q SCH ×3 (09:14→18:25)
[2020-11-19] MEDS: APIXABAN 5 MG TAB PO SCH ×2 (09:16→21:40)
[2020-11-19] MEDS: LINEZOLID 600 MG/300 ML BAG IV SCH ×2 (09:16→21:39)
[2020-11-19] MEDS: PANTOPRAZOLE 40 MG INJ IV SCH (09:16)
[2020-11-19] MEDS: SENNOSIDES/DOCUSATE SODIUM 8.6/50 MG TAB FEEDTUBE SCH ×2 (09:17→21:40)
[2020-11-19] MEDS: dilTIAZem CD 240 MG CAP PO SCH (09:22)
[2020-11-19 09:23] LABS: Calcium 8.3 mg/dL (8.4-10.2)
--- NOTE | 2020-11-19 09:25 | Progress Note ---
Assessment and Plan This is a 84-year-old female with HTN, CKD, chronic RBBB, arthritis who presented to the emergency department on 11/09 from the department With valuation of difficulty breathing and shortness of breath. Upon arrival to the emergency department patient was actively unresponsive and positive pressure ventilation was started and subsequently had a cardiac arrest with eventual ROSC. Work-up emergency department revealed elevated D-dimer of greater than 10,000, elevated lactic acid, CTA showed bilateral segmental and subsegmental emboli with right heart strain, bibasilar airspace consolidation and trace right pleural effusion compatible with pneumonia. Vascular surgery was consulted for thrombolysis. Patient was admitted to the hospitalist service. Patient has no histry of smoking, alcohol or drug abuse. 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 No known allergies. Patient transfered to Telemetry. Patient awake and weak and resting on 2 litres O2. O2 saturation running 100%. No acute respiratory distress at rest. Patient afebrile. Has leukocytosis. Blood pressure 139/63. Pulse 83. Chest xray 11/14/20 reported Faint ill-defined densities within the lower lungs have not significantly improved from yesterday's exam. No pneumothorax. Patient is on Apixaban, Zyvox, and protonix. - Patient Problems (1) Acute respiratory failure with hypoxia Current Visit: Yes Status: Resolved Plan to address problem: Patient intubated and extubated. patient presently on 2 litres O2. Apixaban Protonix. (2) Acute massive pulmonary embolism Current Visit: Yes Status: Acute Plan to address problem: Patient is on Apixaban. (3) Bilateral pneumonia Current Visit: Yes Status: Acute Plan to address problem: Patient is on Zyvox. (4) Left leg DVT Current Visit: Yes Status: Acute Plan to address problem: Patient is on Apixaban. (5) Non-STEMI (non-ST elevated myocardial infarction) Current Visit: Yes Status: Acute Plan to address problem: Management as per Cardiology. (6) Paroxysmal atrial fibrillation Current Visit: Yes Status: Acute Plan to address problem: Patient is on Apixaban. Management as per cardiology. (7) Hypertension Current Visit: Yes Status: Chronic Qualifiers: Hypertension type: primary hypertension Qualified Code(s): I10 - Essential (primary) hypertension Plan to address problem: Management as per primary care. (8) Acute kidney injury Current Visit: Yes Status: Acute Plan to address problem: Management as per nephrology. (9) Cardiopulmonary arrest Current Visit: Yes Status: Resolved Plan to address problem: Patient resucitated and ROSC. Subjective Date of service: 11/19/20 Principal diagnosis: Ac. hypoxemic resp failure; P.E.; PNA; Cardiac arrest; TYLER; Shock Interval history: This is a 84-year-old female with HTN, CKD, chronic RBBB, arthritis who presente d to the emergency department on 11/09 from the department With valuation of difficulty breathing and shortness of breath. Upon arrival to the emergency department patient was actively unresponsive and positive pressure ventilation was started and subsequently had a cardiac arrest with eventual ROSC. Work-up emergency department revealed elevated D-dimer of greater than 10,000, elevated lactic acid, CTA showed bilateral segmental and subsegmental emboli with right heart strain, bibasilar airspace consolidation and trace right pleural effusion compatible with pneumonia. Vascular surgery was consulted for thrombolysis. Patient was admitted to the hospitalist service. Patient has no histry of smoking, alcohol or drug abuse. 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 No known allergies. Patient transfered to Telemetry. Patient awake and weak and resting on 2 litres O2. O2 saturation running 100%. No acute respiratory distress at rest. Patient afebrile. Has leukocytosis. Blood pressure 139/63. Pulse 83. Chest xray 11/14/20 reported Faint ill-defined densities within the lower lungs have not significantly improved from yesterday's exam. No pneumothorax. Patient is on Apixaban, Zyvox, and protonix. Objective Vital Signs - 12hr 11/18/20 11/18/20 11/18/20 21:30 22:18 22:55 Temperature Pulse Rate 83 84 Respiratory Rate Blood Pressure 132/61 132/61 O2 Sat by Pulse 97 Oximetry 11/18/20 11/19/20 11/19/20 23:13 04:08 05:46 Temperature 100.2 F H 98.2 F Pulse Rate 86 80 80 Respiratory 18 18 Rate Blood Pressure 145/62 122/51 122/51 O2 Sat by Pulse 95 99 Oximetry 11/19/20 05:55 Temperature Pulse Rate 80 Respiratory Rate Blood Pressure 122/81 O2 Sat by Pulse Oximetry Constitutional: no acute distress, alert, other (elderly obese female with mildly increased respiratory effort at rest and weak.) Eyes: non-icteric ENT: oropharynx moist Neck: supple, no lymphadenopathy, no JVD Effort: normal Ascultation: Bilateral: diminished breath sounds, rhonchi (scant bases) Percussion: Bilateral: not dull Cardiovascular: regular rate and rhythm Gastrointestinal: normoactive bowel sounds, soft, non-tender, non-distended (protuberant) Integumentary: normal Extremities: no cyanosis, pulses normal, no ischemia or petechiae Neurologic: non-focal exam (grossly), pupils equal and round, CN II-XII normal Psychiatric: mood appropriate, affect normal CBC and BMP: 11/19/20 08:41 11/19/20 08:41 ABG, PT/INR, D-dimer: ABG ABG pH 7.427 pH Units (7.350-7.450) 11/14/20 12:15 POC ABG pCO2 33.5 mmHg (32.0-48.0) 11/13/20 04:03 ABG pCO2 31.2 mm Hg 11/14/20 12:15 POC ABG pO2 145.7 mmHg (83-108) H 11/13/20 04:03 ABG pO2 94.7 mm Hg (80.0-90.0) H 11/14/20 12:15 POC ABG HCO3 17.9 11/13/20 04:03 ABG O2 Saturation 97.6 % (95.0-99.0) 11/14/20 12:15 PT/INR, D-dimer PT 15.4 Sec. (12.2-14.9) H 11/15/20 23:08 INR 1.17 (0.87-1.13) H 11/15/20 23:08 D-Dimer > 36731 ng/mlDDU (0-234) H 11/10/20 04:28 Abnormal lab findings: Abnormal Labs 11/09/20 11/09/20 11/09/20 17:24 17:24 17:24 WBC RBC 3.29 L Hgb Hct RDW Plt Count 100 L Lymph % (Auto) 54.6 H [place] % (Auto) [place] # (Auto) Seg Neutrophils % 38.5 L Seg Neuts % (Manual) Lymphocytes % (Manual) Seg Neutrophils # Seg Neutrophils # Man Lymphocytes # (Manual) PT 19.9 H INR 1.64 H APTT 49.2 H Fibrinogen D-Dimer > 53674 H Heparin Anti-Xa Level ABG pH POC ABG pO2 ABG pO2 ABG HCO3 ABG O2 Saturation ABG Base Excess ABG Hemoglobin ABG Oxyhemoglobin ABG Sodium ABG Potassium ABG Chloride ABG Glucose Oxyhemoglobin Carboxyhemoglobin Sodium Potassium 2.9 L* Chloride Carbon Dioxide 13 L BUN Creatinine 1.4 H Glucose 391 H POC Glucose Lactic Acid Calcium Phosphorus Magnesium AST ALT Lactate Dehydrogenase Total Creatine Kinase CK-MB (CK-2) 5.0 H CK-MB (CK-2) Rel Index 4.8 H Troponin T 0.263 H* C-Reactive Protein NT-Pro-B Natriuret Pep Total Protein Albumin Triglycerides 163 H HDL Cholesterol 29 L Arterial Blood Glucose Arterial Blood Ionized Calcium Urine Creatinine Urine Chloride Crossmatch 11/09/20 11/09/20 11/09/20 17:24 17:24 18:11 WBC RBC Hgb Hct RDW Plt Count Lymph % (Auto) [place] % (Auto) [place] # (Auto) Seg Neutrophils % Seg Neuts % (Manual) Lymphocytes % (Manual) Seg Neutrophils # Seg Neutrophils # Man Lymphocytes # (Manual) PT INR APTT Fibrinogen D-Dimer Heparin Anti-Xa Level ABG pH POC ABG pO2 ABG pO2 ABG HCO3 ABG O2 Saturation ABG Base Excess ABG Hemoglobin ABG Oxyhemoglobin ABG Sodium ABG Potassium ABG Chloride ABG Glucose Oxyhemoglobin Carboxyhemoglobin Sodium Potassium Chloride Carbon Dioxide BUN Creatinine Glucose POC Glucose Lactic Acid 11.40 H* Calcium Phosphorus Magnesium AST 312 H ALT 273 H Lactate Dehydrogenase Total Creatine Kinase CK-MB (CK-2) CK-MB (CK-2) Rel Index Troponin T C-Reactive Protein NT-Pro-B Natriuret Pep 1169 H Total Protein 5.2 L Albumin 2.8 L Triglycerides HDL Cholesterol Arterial Blood Glucose Arterial Blood Ionized Calcium Urine Creatinine Urine Chloride Crossmatch See Detail 11/09/20 11/09/20 11/09/20 18:21 20:07 20:07 WBC RBC Hgb Hct RDW Plt Count Lymph % (Auto) [place] % (Auto) [place] # (Auto) Seg Neutrophils % Seg Neuts % (Manual) Lymphocytes % (Manual) Seg Neutrophils # Seg Neutrophils # Man Lymphocytes # (Manual) PT INR APTT Fibrinogen D-Dimer Heparin Anti-Xa Level ABG pH 7.053 L POC ABG pO2 159.6 H ABG pO2 ABG HCO3 ABG O2 Saturation ABG Base Excess ABG Hemoglobin ABG Oxyhemoglobin ABG Sodium 135.1 L ABG Potassium ABG Chloride ABG Glucose 421 H Oxyhemoglobin Carboxyhemoglobin 0.3 L Sodium Potassium Chloride Carbon Dioxide BUN Creatinine Glucose POC Glucose Lactic Acid 9.00 H* Calcium Phosphorus Magnesium AST ALT Lactate Dehydrogenase Total Creatine Kinase 340 H CK-MB (CK-2) 14.2 H CK-MB (CK-2) Rel Index 4.1 H Troponin T 0.553 H* D C-Reactive Protein NT-Pro-B Natriuret Pep Total Protein Albumin Triglycerides HDL Cholesterol Arterial Blood Glucose 421 H Arterial Blood Ionized Calcium Urine Creatinine Urine Chloride Crossmatch 11/09/20 11/09/20 11/10/20 23:05 23:05 00:42 WBC RBC Hgb Hct RDW Plt Count Lymph % (Auto) [place] % (Auto) [place] # (Auto) Seg Neutrophils % Seg Neuts % (Manual) Lymphocytes % (Manual) Seg Neutrophils # Seg Neutrophils # Man Lymphocytes # (Manual) PT 19.8 H INR 1.63 H APTT Fibrinogen 210 L D-Dimer Heparin Anti-Xa Level 0.79 H ABG pH POC ABG pO2 ABG pO2 ABG HCO3 ABG O2 Saturation ABG Base Excess ABG Hemoglobin ABG Oxyhemoglobin ABG Sodium ABG Potassium ABG Chloride ABG Glucose Oxyhemoglobin Carboxyhemoglobin Sodium Potassium Chloride Carbon Dioxide BUN Creatinine Glucose POC Glucose Lactic Acid 6.80 H* Calcium Phosphorus Magnesium AST ALT Lactate Dehydrogenase Total Creatine Kinase 449 H CK-MB (CK-2) 18.4 H CK-MB (CK-2) Rel Index Troponin T 0.873 H* D C-Reactive Protein NT-Pro-B Natriuret Pep Total Protein Albumin Triglycerides HDL Cholesterol Arterial Blood Glucose Arterial Blood Ionized Calcium Urine Creatinine Urine Chloride Crossmatch 11/10/20 11/10/20 11/10/20 04:28 04:28 04:28 WBC RBC Hgb Hct RDW Plt Count Lymph % (Auto) [place] % (Auto) [place] # (Auto) Seg Neutrophils % Seg Neuts % (Manual) Lymphocytes % (Manual) Seg Neutrophils # Seg Neutrophils # Man Lymphocytes # (Manual) PT 20.3 H INR 1.69 H APTT Fibrinogen D-Dimer > 74328 H Heparin Anti-Xa Level ABG pH POC ABG pO2 ABG pO2 ABG HCO3 ABG O2 Saturation ABG Base Excess ABG Hemoglobin ABG Oxyhemoglobin ABG Sodium ABG Potassium ABG Chloride ABG Glucose Oxyhemoglobin Carboxyhemoglobin Sodium 136 L Potassium 3.3 L Chloride Carbon Dioxide 16 L BUN 21 H Creatinine 1.8 H Glucose 376 H POC Glucose Lactic Acid Calcium Phosphorus Magnesium AST ALT Lactate Dehydrogenase 1637 H Total Creatine Kinase CK-MB (CK-2) CK-MB (CK-2) Rel Index Troponin T C-Reactive Protein 3.50 H NT-Pro-B Natriuret Pep Total Protein Albumin Triglycerides HDL Cholesterol Arterial Blood Glucose Arterial Blood Ionized Calcium Urine Creatinine Urine Chloride Crossmatch 11/10/20 11/10/20 11/10/20 04:28 04:28 05:13 WBC 17.7 H RBC Hgb Hct RDW Plt Count Lymph % (Auto) [place] % (Auto) [place] # (Auto) Seg Neutrophils % Seg Neuts % (Manual) 96.0 H Lymphocytes % (Manual) 1.0 L Seg Neutrophils # Seg Neutrophils # Man 17.0 H Lymphocytes # (Manual) 0.2 L PT INR APTT Fibrinogen D-Dimer Heparin Anti-Xa Level ABG pH 7.221 L POC ABG pO2 162.0 H ABG pO2 ABG HCO3 ABG O2 Saturation ABG Base Excess ABG Hemoglobin 11.7 L ABG Oxyhemoglobin 98.9 H ABG Sodium 133.6 L ABG Potassium 3.1 L ABG Chloride ABG Glucose 346 H Oxyhemoglobin Carboxyhemoglobin 0.1 L Sodium Potassium Chloride Carbon Dioxide BUN Creatinine Glucose POC Glucose Lactic Acid 6.10 H* Calcium Phosphorus Magnesium AST ALT Lactate Dehydrogenase Total Creatine Kinase CK-MB (CK-2) CK-MB (CK-2) Rel Index Troponin T C-Reactive Protein NT-Pro-B Natriuret Pep Total Protein Albumin Triglycerides HDL Cholesterol Arterial Blood Glucose 346 H Arterial Blood Ionized Calcium Urine Creatinine Urine Chloride Crossmatch 11/10/20 11/10/20 11/10/20 11:06 12:30 15:08 WBC 16.1 H RBC 3.20 L Hgb 9.7 L Hct 29.5 L RDW Plt Count Lymph % (Auto) 7.4 L [place] % (Auto) 8.7 H [place] # (Auto) 1.4 H Seg Neutrophils % 83.7 H Seg Neuts % (Manual) Lymphocytes % (Manual) Seg Neutrophils # 13.5 H Seg Neutrophils # Man Lymphocytes # (Manual) PT 18.9 H INR 1.53 H APTT 204.8 H* Fibrinogen D-Dimer Heparin Anti-Xa Level 0.76 H ABG pH POC ABG pO2 ABG pO2 ABG HCO3 ABG O2 Saturation ABG Base Excess ABG Hemoglobin ABG Oxyhemoglobin ABG Sodium ABG Potassium ABG Chloride ABG Glucose Oxyhemoglobin Carboxyhemoglobin Sodium Potassium Chloride Carbon Dioxide BUN Creatinine Glucose POC Glucose Lactic Acid Calcium Phosphorus Magnesium AST ALT Lactate Dehydrogenase Total Creatine Kinase CK-MB (CK-2) CK-MB (CK-2) Rel Index Troponin T C-Reactive Protein NT-Pro-B Natriuret Pep Total Protein Albumin Triglycerides HDL Cholesterol Arterial Blood Glucose Arterial Blood Ionized Calcium Urine Creatinine 80.9 H Urine Chloride 38.8 L Crossmatch 11/10/20 11/10/20 11/10/20 15:08 17:17 18:25 WBC RBC Hgb Hct RDW Plt Count Lymph % (Auto) [place] % (Auto) [place] # (Auto) Seg Neutrophils % Seg Neuts % (Manual) Lymphocytes % (Manual) Seg Neutrophils # Seg Neutrophils # Man Lymphocytes # (Manual) PT INR APTT Fibrinogen D-Dimer Heparin Anti-Xa Level ABG pH 7.206 L POC ABG pO2 ABG pO2 ABG HCO3 18.3 L ABG O2 Saturation ABG Base Excess -9.2 L ABG Hemoglobin 9.4 L ABG Oxyhemoglobin ABG Sodium ABG Potassium ABG Chloride ABG Glucose Oxyhemoglobin 94.3 L Carboxyhemoglobin Sodium Potassium Chloride Carbon Dioxide BUN Creatinine Glucose POC Glucose 200 H Lactic Acid 4.10 H* Calcium Phosphorus Magnesium AST ALT Lactate Dehydrogenase Total Creatine Kinase CK-MB (CK-2) CK-MB (CK-2) Rel Index Troponin T C-Reactive Protein NT-Pro-B Natriuret Pep Total Protein Albumin Triglycerides HDL Cholesterol Arterial Blood Glucose Arterial Blood Ionized Calcium Urine Creatinine Urine Chloride Crossmatch 11/10/20 11/10/20 11/10/20 19:54 20:21 21:13 WBC RBC Hgb 9.7 L Hct 28.4 L RDW Plt Count Lymph % (Auto) [place] % (Auto) [place] # (Auto) Seg Neutrophils % Seg Neuts % (Manual) Lymphocytes % (Manual) Seg Neutrophils # Seg Neutrophils # Man Lymphocytes # (Manual) PT INR APTT Fibrinogen D-Dimer Heparin Anti-Xa Level 0.13 L ABG pH 7.297 L POC ABG pO2 ABG pO2 ABG HCO3 ABG O2 Saturation ABG Base Excess ABG Hemoglobin 7.3 L ABG Oxyhemoglobin ABG Sodium 135.6 L ABG Potassium ABG Chloride 111.0 H ABG Glucose 153 H Oxyhemoglobin Carboxyhemoglobin Sodium Potassium Chloride Carbon Dioxide BUN Creatinine Glucose POC Glucose Lactic Acid Calcium Phosphorus Magnesium AST ALT Lactate Dehydrogenase Total Creatine Kinase CK-MB (CK-2) CK-MB (CK-2) Rel Index Troponin T C-Reactive Protein NT-Pro-B Natriuret Pep Total Protein Albumin Triglycerides HDL Cholesterol Arterial Blood Glucose 153 H Arterial Blood Ionized Calcium Urine Creatinine Urine Chloride Crossmatch 11/10/20 11/11/20 11/11/20 23:30 04:12 04:35 WBC 16.0 H RBC 2.83 L Hgb 8.7 L Hct 25.8 L RDW Plt Count Lymph % (Auto) [place] % (Auto) [place] # (Auto) Seg Neutrophils % Seg Neuts % (Manual) Lymphocytes % (Manual) Seg Neutrophils # Seg Neutrophils # Man Lymphocytes # (Manual) PT INR APTT Fibrinogen D-Dimer Heparin Anti-Xa Level 0.29 L ABG pH POC ABG pO2 ABG pO2 ABG HCO3 ABG O2 Saturation ABG Base Excess ABG Hemoglobin ABG Oxyhemoglobin ABG Sodium ABG Potassium ABG Chloride ABG Glucose Oxyhemoglobin Carboxyhemoglobin Sodium Potassium Chloride Carbon Dioxide BUN Creatinine Glucose POC Glucose 166 H Lactic Acid Calcium Phosphorus Magnesium AST ALT Lactate Dehydrogenase Total Creatine Kinase CK-MB (CK-2) CK-MB (CK-2) Rel Index Troponin T C-Reactive Protein NT-Pro-B Natriuret Pep Total Protein Albumin Triglycerides HDL Cholesterol Arterial Blood Glucose Arterial Blood Ionized Calcium Urine Creatinine Urine Chloride Crossmatch 11/11/20 11/11/20 11/11/20 04:35 05:00 05:01 WBC RBC Hgb Hct RDW Plt Count Lymph % (Auto) [place] % (Auto) [place] # (Auto) Seg Neutrophils % Seg Neuts % (Manual) Lymphocytes % (Manual) Seg Neutrophils # Seg Neutrophils # Man Lymphocytes # (Manual) PT INR APTT Fibrinogen D-Dimer Heparin Anti-Xa Level ABG pH POC ABG pO2 ABG pO2 ABG HCO3 ABG O2 Saturation ABG Base Excess ABG Hemoglobin ABG Oxyhemoglobin ABG Sodium ABG Potassium ABG Chloride ABG Glucose Oxyhemoglobin Carboxyhemoglobin Sodium 136 L Potassium Chloride Carbon Dioxide 17 L BUN 25 H Creatinine 2.5 H Glucose 192 H POC Glucose 191 H Lactic Acid 2.20 H* Calcium 7.6 L Phosphorus Magnesium AST 232 H ALT 309 H Lactate Dehydrogenase Total Creatine Kinase CK-MB (CK-2) CK-MB (CK-2) Rel Index Troponin T C-Reactive Protein NT-Pro-B Natriuret Pep Total Protein 5.7 L Albumin 2.7 L Triglycerides HDL Cholesterol Arterial Blood Glucose Arterial Blood Ionized Calcium Urine Creatinine Urine Chloride Crossmatch 11/11/20 11/11/20 11/11/20 09:45 12:34 14:40 WBC RBC Hgb Hct RDW Plt Count Lymph % (Auto) [place] % (Auto) [place] # (Auto) Seg Neutrophils % Seg Neuts % (Manual) Lymphocytes % (Manual) Seg Neutrophils # Seg Neutrophils # Man Lymphocytes # (Manual) PT INR APTT Fibrinogen D-Dimer Heparin Anti-Xa Level ABG pH POC ABG pO2 ABG pO2 172.4 H ABG HCO3 16.7 L ABG O2 Saturation 99.1 H ABG Base Excess -7.9 L ABG Hemoglobin 6.1 L ABG Oxyhemoglobin ABG Sodium ABG Potassium ABG Chloride ABG Glucose Oxyhemoglobin Carboxyhemoglobin Sodium Potassium Chloride Carbon Dioxide BUN Creatinine Glucose POC Glucose 141 H Lactic Acid 2.70 H* Calcium Phosphorus Magnesium AST ALT Lactate Dehydrogenase Total Creatine Kinase CK-MB (CK-2) CK-MB (CK-2) Rel Index Troponin T C-Reactive Protein NT-Pro-B Natriuret Pep Total Protein Albumin Triglycerides HDL Cholesterol Arterial Blood Glucose Arterial Blood Ionized Calcium Urine Creatinine Urine Chloride Crossmatch 11/11/20 11/11/20 11/11/20 17:06 21:00 23:20 WBC RBC Hgb 7.1 L Hct 20.9 L RDW Plt Count Lymph % (Auto) [place] % (Auto) [place] # (Auto) Seg Neutrophils % Seg Neuts % (Manual) Lymphocytes % (Manual) Seg Neutrophils # Seg Neutrophils # Man Lymphocytes # (Manual) PT INR APTT Fibrinogen D-Dimer Heparin Anti-Xa Level ABG pH 7.287 L POC ABG pO2 ABG pO2 ABG HCO3 ABG O2 Saturation ABG Base Excess ABG Hemoglobin 7.5 L ABG Oxyhemoglobin ABG Sodium 134.1 L ABG Potassium ABG Chloride 110.0 H ABG Glucose 141 H Oxyhemoglobin Carboxyhemoglobin Sodium Potassium Chloride Carbon Dioxide BUN Creatinine Glucose POC Glucose 157 H Lactic Acid Calcium Phosphorus Magnesium AST ALT Lactate Dehydrogenase Total Creatine Kinase CK-MB (CK-2) CK-MB (CK-2) Rel Index Troponin T C-Reactive Protein NT-Pro-B Natriuret Pep Total Protein Albumin Triglycerides HDL Cholesterol Arterial Blood Glucose 141 H Arterial Blood Ionized Calcium 4.2 L Urine Creatinine Urine Chloride Crossmatch 11/11/20 11/12/20 11/12/20 23:30 04:26 04:26 WBC 16.8 H RBC 2.25 L Hgb 6.8 L Hct 20.5 L RDW Plt Count Lymph % (Auto) [place] % (Auto) [place] # (Auto) Seg Neutrophils % Seg Neuts % (Manual) Lymphocytes % (Manual) Seg Neutrophils # Seg Neutrophils # Man Lymphocytes # (Manual) PT INR APTT Fibrinogen D-Dimer Heparin Anti-Xa Level ABG pH POC ABG pO2 ABG pO2 ABG HCO3 ABG O2 Saturation ABG Base Excess ABG Hemoglobin ABG Oxyhemoglobin ABG Sodium ABG Potassium ABG Chloride ABG Glucose Oxyhemoglobin Carboxyhemoglobin Sodium Potassium Chloride 110.1 H Carbon Dioxide 18 L BUN 25 H Creatinine 2.4 H Glucose 146 H POC Glucose 127 H Lactic Acid Calcium 7.4 L Phosphorus Magnesium AST ALT Lactate Dehydrogenase Total Creatine Kinase CK-MB (CK-2) CK-MB (CK-2) Rel Index Troponin T C-Reactive Protein NT-Pro-B Natriuret Pep Total Protein Albumin Triglycerides HDL Cholesterol Arterial Blood Glucose Arterial Blood Ionized Calcium Urine Creatinine Urine Chloride Crossmatch 11/12/20 11/12/20 11/12/20 04:26 06:01 12:02 WBC RBC Hgb Hct RDW Plt Count Lymph % (Auto) [place] % (Auto) [place] # (Auto) Seg Neutrophils % Seg Neuts % (Manual) Lymphocytes % (Manual) Seg Neutrophils # Seg Neutrophils # Man Lymphocytes # (Manual) PT 17.6 H INR 1.40 H APTT 162.1 H* Fibrinogen D-Dimer Heparin Anti-Xa Level ABG pH POC ABG pO2 ABG pO2 ABG HCO3 ABG O2 Saturation ABG Base Excess ABG Hemoglobin ABG Oxyhemoglobin ABG Sodium ABG Potassium ABG Chloride ABG Glucose Oxyhemoglobin Carboxyhemoglobin Sodium Potassium Chloride Carbon Dioxide BUN Creatinine Glucose POC Glucose 134 H 131 H Lactic Acid Calcium Phosphorus Magnesium AST ALT Lactate Dehydrogenase Total Creatine Kinase CK-MB (CK-2) CK-MB (CK-2) Rel Index Troponin T C-Reactive Protein NT-Pro-B Natriuret Pep Total Protein Albumin Triglycerides HDL Cholesterol Arterial Blood Glucose Arterial Blood Ionized Calcium Urine Creatinine Urine Chloride Crossmatch 11/12/20 11/12/20 11/12/20 12:05 12:34 17:26 WBC RBC Hgb 6.8 L Hct 20.3 L RDW Plt Count Lymph % (Auto) [place] % (Auto) [place] # (Auto) Seg Neutrophils % Seg Neuts % (Manual) Lymphocytes % (Manual) Seg Neutrophils # Seg Neutrophils # Man Lymphocytes # (Manual) PT INR APTT Fibrinogen D-Dimer Heparin Anti-Xa Level ABG pH 7.297 L POC ABG pO2 ABG pO2 ABG HCO3 ABG O2 Saturation ABG Base Excess ABG Hemoglobin 7.3 L ABG Oxyhemoglobin ABG Sodium 135.6 L ABG Potassium ABG Chloride 111.0 H ABG Glucose 153 H Oxyhemoglobin Carboxyhemoglobin Sodium Potassium Chloride Carbon Dioxide BUN Creatinine Glucose POC Glucose 119 H Lactic Acid Calcium Phosphorus Magnesium AST ALT Lactate Dehydrogenase Total Creatine Kinase CK-MB (CK-2) CK-MB (CK-2) Rel Index Troponin T C-Reactive Protein NT-Pro-B Natriuret Pep Total Protein Albumin Triglycerides HDL Cholesterol Arterial Blood Glucose 153 H Arterial Blood Ionized Calcium Urine Creatinine Urine Chloride Crossmatch 11/12/20 11/13/20 11/13/20 23:49 02:11 02:11 WBC 15.9 H RBC 2.38 L Hgb 7.1 L Hct 21.3 L RDW Plt Count Lymph % (Auto) [place] % (Auto) 8.9 H [place] # (Auto) 1.4 H Seg Neutrophils % 73.5 H Seg Neuts % (Manual) Lymphocytes % (Manual) Seg Neutrophils # 11.7 H Seg Neutrophils # Man Lymphocytes # (Manual) PT INR APTT Fibrinogen D-Dimer Heparin Anti-Xa Level ABG pH POC ABG pO2 ABG pO2 ABG HCO3 ABG O2 Saturation ABG Base Excess ABG Hemoglobin ABG Oxyhemoglobin ABG Sodium ABG Potassium ABG Chloride ABG Glucose Oxyhemoglobin Carboxyhemoglobin Sodium Potassium Chloride 109.8 H Carbon Dioxide 18 L BUN 26 H Creatinine 2.3 H Glucose 109 H POC Glucose 118 H Lactic Acid Calcium 7.7 L Phosphorus Magnesium AST ALT Lactate Dehydrogenase Total Creatine Kinase CK-MB (CK-2) CK-MB (CK-2) Rel Index Troponin T C-Reactive Protein NT-Pro-B Natriuret Pep Total Protein Albumin Triglycerides HDL Cholesterol Arterial Blood Glucose Arterial Blood Ionized Calcium Urine Creatinine Urine Chloride Crossmatch 11/13/20 11/13/20 11/13/20 04:03 06:01 07:50 WBC RBC Hgb 7.7 L Hct 23.3 L RDW Plt Count Lymph % (Auto) [place] % (Auto) [place] # (Auto) Seg Neutrophils % Seg Neuts % (Manual) Lymphocytes % (Manual) Seg Neutrophils # Seg Neutrophils # Man Lymphocytes # (Manual) PT INR APTT Fibrinogen D-Dimer Heparin Anti-Xa Level ABG pH POC ABG pO2 145.7 H ABG pO2 ABG HCO3 ABG O2 Saturation ABG Base Excess ABG Hemoglobin 7.2 L ABG Oxyhemoglobin ABG Sodium 135.3 L ABG Potassium ABG Chloride 113.0 H ABG Glucose 108 H Oxyhemoglobin Carboxyhemoglobin Sodium Potassium Chloride Carbon Dioxide BUN Creatinine Glucose POC Glucose 108 H Lactic Acid Calcium Phosphorus Magnesium AST ALT Lactate Dehydrogenase Total Creatine Kinase CK-MB (CK-2) CK-MB (CK-2) Rel Index Troponin T C-Reactive Protein NT-Pro-B Natriuret Pep Total Protein Albumin Triglycerides HDL Cholesterol Arterial Blood Glucose 108 H Arterial Blood Ionized Calcium 4.3 L Urine Creatinine Urine Chloride Crossmatch 11/13/20 11/13/20 11/13/20 12:00 14:30 17:10 WBC RBC Hgb 7.5 L Hct 22.6 L RDW Plt Count Lymph % (Auto) [place] % (Auto) [place] # (Auto) Seg Neutrophils % Seg Neuts % (Manual) Lymphocytes % (Manual) Seg Neutrophils # Seg Neutrophils # Man Lymphocytes # (Manual) PT INR APTT Fibrinogen D-Dimer Heparin Anti-Xa Level ABG pH POC ABG pO2 ABG pO2 ABG HCO3 ABG O2 Saturation ABG Base Excess ABG Hemoglobin ABG Oxyhemoglobin ABG Sodium ABG Potassium ABG Chloride ABG Glucose Oxyhemoglobin Carboxyhemoglobin Sodium Potassium Chloride Carbon Dioxide BUN Creatinine Glucose POC Glucose 147 H 110 H Lactic Acid Calcium Phosphorus Magnesium AST ALT Lactate Dehydrogenase Total Creatine Kinase CK-MB (CK-2) CK-MB (CK-2) Rel Index Troponin T C-Reactive Protein NT-Pro-B Natriuret Pep Total Protein Albumin Triglycerides HDL Cholesterol Arterial Blood Glucose Arterial Blood Ionized Calcium Urine Creatinine Urine Chloride Crossmatch 11/13/20 11/14/20 11/14/20 21:22 12:15 14:50 WBC RBC Hgb Hct RDW Plt Count Lymph % (Auto) [place] % (Auto) [place] # (Auto) Seg Neutrophils % Seg Neuts % (Manual) Lymphocytes % (Manual) Seg Neutrophils # Seg Neutrophils # Man Lymphocytes # (Manual) PT INR APTT Fibrinogen D-Dimer Heparin Anti-Xa Level 0.10 L ABG pH POC ABG pO2 ABG pO2 97.2 H 94.7 H ABG HCO3 18.6 L ABG O2 Saturation ABG Base Excess -6.1 L -3.7 L ABG Hemoglobin 9.2 L 8.3 L ABG Oxyhemoglobin ABG Sodium ABG Potassium ABG Chloride ABG Glucose Oxyhemoglobin Carboxyhemoglobin Sodium Potassium Chloride Carbon Dioxide BUN Creatinine Glucose POC Glucose Lactic Acid Calcium Phosphorus Magnesium AST ALT Lactate Dehydrogenase Total Creatine Kinase CK-MB (CK-2) CK-MB (CK-2) Rel Index Troponin T C-Reactive Protein NT-Pro-B Natriuret Pep Total Protein Albumin Triglycerides HDL Cholesterol Arterial Blood Glucose Arterial Blood Ionized Calcium Urine Creatinine Urine Chloride Crossmatch 11/14/20 11/14/20 11/14/20 14:50 17:53 Unknown WBC 15.9 H RBC 2.61 L Hgb 7.8 L Hct 23.1 L RDW Plt Count Lymph % (Auto) [place] % (Auto) [place] # (Auto) Seg Neutrophils % Seg Neuts % (Manual) Lymphocytes % (Manual) Seg Neutrophils # Seg Neutrophils # Man Lymphocytes # (Manual) PT INR APTT Fibrinogen D-Dimer Heparin Anti-Xa Level ABG pH POC ABG pO2 ABG pO2 ABG HCO3 ABG O2 Saturation ABG Base Excess ABG Hemoglobin ABG Oxyhemoglobin ABG Sodium ABG Potassium ABG Chloride ABG Glucose Oxyhemoglobin Carboxyhemoglobin Sodium Potassium Chloride Carbon Dioxide BUN Creatinine Glucose POC Glucose 113 H Lactic Acid Calcium Phosphorus Magnesium AST ALT Lactate Dehydrogenase Total Creatine Kinase CK-MB (CK-2) CK-MB (CK-2) Rel Index Troponin T C-Reactive Protein 9.40 H NT-Pro-B Natriuret Pep Total Protein Albumin Triglycerides HDL Cholesterol Arterial Blood Glucose Arterial Blood Ionized Calcium Urine Creatinine Urine Chloride Crossmatch 11/14/20 11/15/20 11/15/20 Unknown 00:10 02:46 WBC 15.2 H RBC 2.83 L Hgb 8.7 L Hct 25.6 L RDW Plt Count Lymph % (Auto) [place] % (Auto) [place] # (Auto) Seg Neutrophils % Seg Neuts % (Manual) Lymphocytes % (Manual) Seg Neutrophils # Seg Neutrophils # Man Lymphocytes # (Manual) PT INR APTT Fibrinogen D-Dimer Heparin Anti-Xa Level 0.18 L ABG pH POC ABG pO2 ABG pO2 ABG HCO3 ABG O2 Saturation ABG Base Excess ABG Hemoglobin ABG Oxyhemoglobin ABG Sodium ABG Potassium ABG Chloride ABG Glucose Oxyhemoglobin Carboxyhemoglobin Sodium Potassium 3.3 L Chloride 107.8 H Carbon Dioxide 18 L BUN 22 H Creatinine 1.7 H Glucose POC Glucose Lactic Acid Calcium 8.2 L Phosphorus 1.70 L Magnesium 1.40 L AST ALT 88 H Lactate Dehydrogenase Total Creatine Kinase CK-MB (CK-2) CK-MB (CK-2) Rel Index Troponin T C-Reactive Protein NT-Pro-B Natriuret Pep Total Protein 6.0 L Albumin 2.7 L Triglycerides HDL Cholesterol Arterial Blood Glucose Arterial Blood Ionized Calcium Urine Creatinine Urine Chloride Crossmatch 11/15/20 11/15/20 11/15/20 02:46 06:36 08:20 WBC RBC Hgb Hct RDW Plt Count Lymph % (Auto) [place] % (Auto) [place] # (Auto) Seg Neutrophils % Seg Neuts % (Manual) Lymphocytes % (Manual) Seg Neutrophils # Seg Neutrophils # Man Lymphocytes # (Manual) PT INR APTT Fibrinogen D-Dimer Heparin Anti-Xa Level 0.12 L ABG pH POC ABG pO2 ABG pO2 ABG HCO3 ABG O2 Saturation ABG Base Excess ABG Hemoglobin ABG Oxyhemoglobin ABG Sodium ABG Potassium ABG Chloride ABG Glucose Oxyhemoglobin Carboxyhemoglobin Sodium Potassium 3.5 L Chloride Carbon Dioxide 17 L BUN 22 H Creatinine 1.7 H Glucose POC Glucose 107 H Lactic Acid Calcium 8.2 L Phosphorus Magnesium AST ALT Lactate Dehydrogenase Total Creatine Kinase CK-MB (CK-2) CK-MB (CK-2) Rel Index Troponin T C-Reactive Protein NT-Pro-B Natriuret Pep Total Protein Albumin Triglycerides HDL Cholesterol Arterial Blood Glucose Arterial Blood Ionized Calcium Urine Creatinine Urine Chloride Crossmatch 11/15/20 11/15/20 11/15/20 11:35 15:56 16:06 WBC RBC Hgb Hct RDW Plt Count Lymph % (Auto) [place] % (Auto) [place] # (Auto) Seg Neutrophils % Seg Neuts % (Manual) Lymphocytes % (Manual) Seg Neutrophils # Seg Neutrophils # Man Lymphocytes # (Manual) PT INR APTT Fibrinogen D-Dimer Heparin Anti-Xa Level 0.14 L ABG pH POC ABG pO2 ABG pO2 ABG HCO3 ABG O2 Saturation ABG Base Excess ABG Hemoglobin ABG Oxyhemoglobin ABG Sodium ABG Potassium ABG Chloride ABG Glucose Oxyhemoglobin Carboxyhemoglobin Sodium Potassium Chloride Carbon Dioxide BUN Creatinine Glucose POC Glucose 145 H 118 H Lactic Acid Calcium Phosphorus Magnesium AST ALT Lactate Dehydrogenase Total Creatine Kinase CK-MB (CK-2) CK-MB (CK-2) Rel Index Troponin T C-Reactive Protein NT-Pro-B Natriuret Pep Total Protein Albumin Triglycerides HDL Cholesterol Arterial Blood Glucose Arterial Blood Ionized Calcium Urine Creatinine Urine Chloride Crossmatch 11/15/20 11/15/20 11/15/20 23:08 23:08 23:08 WBC 13.4 H RBC 2.72 L Hgb 8.3 L Hct 24.4 L RDW Plt Count Lymph % (Auto) [place] % (Auto) [place] # (Auto) Seg Neutrophils % Seg Neuts % (Manual) Lymphocytes % (Manual) Seg Neutrophils # Seg Neutrophils # Man Lymphocytes # (Manual) PT 15.4 H INR 1.17 H APTT 52.0 H Fibrinogen D-Dimer Heparin Anti-Xa Level 0.12 L ABG pH POC ABG pO2 ABG pO2 ABG HCO3 ABG O2 Saturation ABG Base Excess ABG Hemoglobin ABG Oxyhemoglobin ABG Sodium ABG Potassium ABG Chloride ABG Glucose Oxyhemoglobin Carboxyhemoglobin Sodium Potassium Chloride Carbon Dioxide BUN Creatinine Glucose POC Glucose Lactic Acid Calcium Phosphorus Magnesium AST ALT Lactate Dehydrogenase Total Creatine Kinase CK-MB (CK-2) CK-MB (CK-2) Rel Index Troponin T C-Reactive Protein NT-Pro-B Natriuret Pep Total Protein Albumin Triglycerides HDL Cholesterol Arterial Blood Glucose Arterial Blood Ionized Calcium Urine Creatinine Urine Chloride Crossmatch 11/15/20 11/15/20 11/16/20 23:08 23:32 05:14 WBC RBC Hgb Hct RDW Plt Count Lymph % (Auto) [place] % (Auto) [place] # (Auto) Seg Neutrophils % Seg Neuts % (Manual) Lymphocytes % (Manual) Seg Neutrophils # Seg Neutrophils # Man Lymphocytes # (Manual) PT INR APTT Fibrinogen D-Dimer Heparin Anti-Xa Level ABG pH POC ABG pO2 ABG pO2 ABG HCO3 ABG O2 Saturation ABG Base Excess ABG Hemoglobin ABG Oxyhemoglobin ABG Sodium ABG Potassium ABG Chloride ABG Glucose Oxyhemoglobin Carboxyhemoglobin Sodium Potassium Chloride Carbon Dioxide BUN Creatinine 1.6 H Glucose POC Glucose 120 H 141 H Lactic Acid Calcium Phosphorus Magnesium AST ALT Lactate Dehydrogenase Total Creatine Kinase CK-MB (CK-2) CK-MB (CK-2) Rel Index Troponin T C-Reactive Protein NT-Pro-B Natriuret Pep Total Protein Albumin Triglycerides HDL Cholesterol Arterial Blood Glucose Arterial Blood Ionized Calcium Urine Creatinine Urine Chloride Crossmatch 11/16/20 11/16/20 11/16/20 06:17 07:31 11:45 WBC RBC Hgb 8.8 L Hct 25.9 L RDW Plt Count Lymph % (Auto) [place] % (Auto) [place] # (Auto) Seg Neutrophils % Seg Neuts % (Manual) Lymphocytes % (Manual) Seg Neutrophils # Seg Neutrophils # Man Lymphocytes # (Manual) PT INR APTT Fibrinogen D-Dimer Heparin Anti-Xa Level ABG pH POC ABG pO2 ABG pO2 ABG HCO3 ABG O2 Saturation ABG Base Excess ABG Hemoglobin ABG Oxyhemoglobin ABG Sodium ABG Potassium ABG Chloride ABG Glucose Oxyhemoglobin Carboxyhemoglobin Sodium Potassium Chloride Carbon Dioxide BUN Creatinine Glucose POC Glucose 118 H 118 H Lactic Acid Calcium Phosphorus Magnesium AST ALT Lactate Dehydrogenase Total Creatine Kinase CK-MB (CK-2) CK-MB (CK-2) Rel Index Troponin T C-Reactive Protein NT-Pro-B Natriuret Pep Total Protein Albumin Triglycerides HDL Cholesterol Arterial Blood Glucose Arterial Blood Ionized Calcium Urine Creatinine Urine Chloride Crossmatch 11/16/20 11/16/20 11/16/20 15:58 17:17 21:24 WBC RBC Hgb Hct RDW Plt Count Lymph % (Auto) [place] % (Auto) [place] # (Auto) Seg Neutrophils % Seg Neuts % (Manual) Lymphocytes % (Manual) Seg Neutrophils # Seg Neutrophils # Man Lymphocytes # (Manual) PT INR APTT Fibrinogen D-Dimer Heparin Anti-Xa Level ABG pH POC ABG pO2 ABG pO2 ABG HCO3 ABG O2 Saturation ABG Base Excess ABG Hemoglobin ABG Oxyhemoglobin ABG Sodium ABG Potassium ABG Chloride ABG Glucose Oxyhemoglobin Carboxyhemoglobin Sodium Potassium Chloride Carbon Dioxide BUN Creatinine Glucose POC Glucose 153 H 132 H 132 H Lactic Acid Calcium Phosphorus Magnesium AST ALT Lactate Dehydrogenase Total Creatine Kinase CK-MB (CK-2) CK-MB (CK-2) Rel Index Troponin T C-Reactive Protein NT-Pro-B Natriuret Pep Total Protein Albumin Triglycerides HDL Cholesterol Arterial Blood Glucose Arterial Blood Ionized Calcium Urine Creatinine Urine Chloride Crossmatch 11/17/20 11/17/20 11/17/20 04:48 15:31 21:46 WBC 14.2 H RBC 2.85 L Hgb 8.5 L Hct 25.5 L RDW 15.5 H Plt Count Lymph % (Auto) [place] % (Auto) [place] # (Auto) Seg Neutrophils % Seg Neuts % (Manual) Lymphocytes % (Manual) Seg Neutrophils # Seg Neutrophils # Man Lymphocytes # (Manual) PT INR APTT Fibrinogen D-Dimer Heparin Anti-Xa Level ABG pH POC ABG pO2 ABG pO2 ABG HCO3 ABG O2 Saturation ABG Base Excess ABG Hemoglobin ABG Oxyhemoglobin ABG Sodium ABG Potassium ABG Chloride ABG Glucose Oxyhemoglobin Carboxyhemoglobin Sodium Potassium Chloride Carbon Dioxide BUN Creatinine Glucose POC Glucose 131 H 168 H Lactic Acid Calcium Phosphorus Magnesium AST ALT Lactate Dehydrogenase Total Creatine Kinase CK-MB (CK-2) CK-MB (CK-2) Rel Index Troponin T C-Reactive Protein NT-Pro-B Natriuret Pep Total Protein Albumin Triglycerides HDL Cholesterol Arterial Blood Glucose Arterial Blood Ionized Calcium Urine Creatinine Urine Chloride Crossmatch 11/18/20 11/18/20 11/18/20 07:39 11:39 15:54 WBC RBC Hgb Hct RDW Plt Count Lymph % (Auto) [place] % (Auto) [place] # (Auto) Seg Neutrophils % Seg Neuts % (Manual) Lymphocytes % (Manual) Seg Neutrophils # Seg Neutrophils # Man Lymphocytes # (Manual) PT INR APTT Fibrinogen D-Dimer Heparin Anti-Xa Level ABG pH POC ABG pO2 ABG pO2 ABG HCO3 ABG O2 Saturation ABG Base Excess ABG Hemoglobin ABG Oxyhemoglobin ABG Sodium ABG Potassium ABG Chloride ABG Glucose Oxyhemoglobin Carboxyhemoglobin Sodium Potassium Chloride Carbon Dioxide BUN Creatinine Glucose POC Glucose 177 H 185 H 127 H Lactic Acid Calcium Phosphorus Magnesium AST ALT Lactate Dehydrogenase Total Creatine Kinase CK-MB (CK-2) CK-MB (CK-2) Rel Index Troponin T C-Reactive Protein NT-Pro-B Natriuret Pep Total Protein Albumin Triglycerides HDL Cholesterol Arterial Blood Glucose Arterial Blood Ionized Calcium Urine Creatinine Urine Chloride Crossmatch 11/19/20 11/19/20 11/19/20 01:29 08:21 08:41 WBC RBC Hgb Hct RDW Plt Count Lymph % (Auto) [place] % (Auto) [place] # (Auto) Seg Neutrophils % Seg Neuts % (Manual) Lymphocytes % (Manual) Seg Neutrophils # Seg Neutrophils # Man Lymphocytes # (Manual) PT INR APTT Fibrinogen D-Dimer Heparin Anti-Xa Level ABG pH POC ABG pO2 ABG pO2 ABG HCO3 ABG O2 Saturation ABG Base Excess ABG Hemoglobin ABG Oxyhemoglobin ABG Sodium ABG Potassium ABG Chloride ABG Glucose Oxyhemoglobin Carboxyhemoglobin Sodium 136 L Potassium 3.0 L Chloride Carbon Dioxide BUN 20 H Creatinine 1.6 H Glucose 140 H POC Glucose 164 H 137 H Lactic Acid Calcium 8.3 L Phosphorus Magnesium 1.60 L AST ALT Lactate Dehydrogenase Total Creatine Kinase CK-MB (CK-2) CK-MB (CK-2) Rel Index Troponin T C-Reactive Protein NT-Pro-B Natriuret Pep Total Protein Albumin Triglycerides HDL Cholesterol Arterial Blood Glucose Arterial Blood Ionized Calcium Urine Creatinine Urine Chloride Crossmatch Allied health notes reviewed: nursing
[2020-11-19 09:38] LABS: Basophils # (Auto) 0.1 K/mm3 (0.0-0.1); Basophils % (Auto) 0.4 % (0.0-1.8); Eosinophils # (Auto) 0.5 K/mm3 (0.0-0.4); Eosinophils % (Auto) 2.8 % (0.0-4.3); Hematocrit 24.6 % (30.3-42.9); Hemoglobin 8.3 gm/dl (10.1-14.3); Mean Corpuscular HGB Conc 34 % (30-34); Mean Corpuscular Volume 89 fl (79-97); Monocytes # (Auto) 1.8 K/mm3 (0.0-0.8); Monocytes % (Auto) 10.9 % (0.0-7.3); Platelet Count 345 K/mm3 (140-440); Red Blood Count 2.77 M/mm3 (3.65-5.03); Red Cell Distribution Width 15.3 % (13.2-15.2)
[2020-11-19] MEDS ORDERED: dilTIAZem CD 300 MG CAP PO SCH (10:00)
[2020-11-19] MEDS ORDERED: dilTIAZem CD 180 MG CAP PO SCH ×2 (10:00)
--- NOTE | 2020-11-19 10:33 | Progress Note ---
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 #Bilateral PE: s/p EKOS #Cardiac arrest #TYLER: renally dose medications. Recs: -Continue linezolid 600mg q12h to complete 8 days. -Follow up blood cultures. Thank you for the consult, we will continue to follow. OK for DC from ID perspective with Zyvox as above. Aguilar Ng MD [facility] ([facility]) O: [phone] F: [phone] Subjective Date of service: 11/19/20 Principal diagnosis: Ac. hypoxemic resp failure; P.E.; PNA; Cardiac arrest; TYLER; Shock Interval history: Afebrile, white count remains elevated. Objective - Exam Narrative Exam: Physical Exam: Constitutional: Alert, cooperative. Follows commands, tracks. Head, Ears, Nose: Normocephalic, atraumatic. External ears, nose normal Eyes: Conjunctivae/corneas clear. No icterus. No ptosis. Neck: Supple, no meningeal signs Oral: dentition fair, no thrush Cardiovascular: S1, S2 normal. Respiratory: Good air entry, clear to auscultation bilaterally GI: Soft, non-tender; bowel sounds normal. No peritoneal signs. Musculoskeletal: No pedal edema, no cyanosis. Skin: No rash or abscess Hem/Lymphatic: No palpable cervical or supraclavicular nodes. Psych: No agitation Neurological: No agitation - Constitutional Vitals: Vital Signs Temp Pulse Resp BP Pulse Ox 98.2 F 80 18 122/81 99 11/19/20 04:08 11/19/20 05:55 11/19/20 04:08 11/19/20 05:55 11/19/20 04:08 Temperature -Last 24 Hours Temperature 98.2 F Temperature 100.2 F Temperature 98.6 F Temperature 98.7 F Temperature 98.0 F - Labs CBC & Chem 7: 11/19/20 08:41 11/19/20 08:41 Labs: Abnormal lab results 11/18/20 11/18/20 11/19/20 Range/Units 11:39 15:54 01:29 WBC (4.5-11.0) K/mm3 RBC (3.65-5.03) M/mm3 Hgb (10.1-14.3) gm/dl Hct (30.3-42.9) % RDW (13.2-15.2) % Lymph % (Auto) (13.4-35.0) % [place] % (Auto) (0.0-7.3) % [place] # (Auto) (0.0-0.8) K/mm3 Eos # (Auto) (0.0-0.4) K/mm3 Seg Neutrophils % (40.0-70.0) % Seg Neutrophils # (1.8-7.7) K/mm3 Sodium (137-145) mmol/L Potassium (3.6-5.0) mmol/L BUN (7-17) mg/dL Creatinine (0.6-1.2) mg/dL Glucose (65-100) mg/dL POC Glucose 185 H 127 H 164 H (70-105) mg/dL Calcium (8.4-10.2) mg/dL Magnesium (1.7-2.3) mg/dL 11/19/20 11/19/20 11/19/20 Range/Units 08:21 08:41 08:41 WBC 16.3 H (4.5-11.0) K/mm3 RBC 2.77 L (3.65-5.03) M/mm3 Hgb 8.3 L (10.1-14.3) gm/dl Hct 24.6 L (30.3-42.9) % RDW 15.3 H (13.2-15.2) % Lymph % (Auto) 12.0 L (13.4-35.0) % [place] % (Auto) 10.9 H (0.0-7.3) % [place] # (Auto) 1.8 H (0.0-0.8) K/mm3 Eos # (Auto) 0.5 H (0.0-0.4) K/mm3 Seg Neutrophils % 73.9 H (40.0-70.0) % Seg Neutrophils # 12.1 H (1.8-7.7) K/mm3 Sodium 136 L (137-145) mmol/L Potassium 3.0 L (3.6-5.0) mmol/L BUN 20 H (7-17) mg/dL Creatinine 1.6 H (0.6-1.2) mg/dL Glucose 140 H (65-100) mg/dL POC Glucose 137 H (70-105) mg/dL Calcium 8.3 L (8.4-10.2) mg/dL Magnesium 1.60 L (1.7-2.3) mg/dL
[2020-11-19] MEDS ORDERED: MAGNESIUM SULFATE 2 GM/50 ML BAG IV NR (11:00)
--- NOTE | 2020-11-19 12:07 | Progress Note ---
Assessment and Plan 84-year-old female with hypertension obesity suffered a cardiac arrest secondary to large pulmonary embolism with RV dysfunction and failure with a non-ST elevation [place] hypotension and acute renal sufficiency Acute respiratory failure with hypoxia * Pulmonology is following Non-STEMI (non-ST elevated myocardial infarction) Acute pulmonary embolism with acute cor pulmonale Atrial fibrillation HTN * Anticoagulated with Eliquis * Telemetry reviewed: Patient currently sinus rhythm * Echo 11/10/2020-EF 50 to 55%, right ventricular systolic function is normal, right ventricle is mildly dilated, left atrium not well visualized, mild mitral regurgitation, moderate pulmonary hypertension * Currently on hydralazine and diltiazem Acute kidney injury * Nephrology currently following RUE Extremity swelling * venous doppler pending Plan: Decreased Diltiazem CD 240mg PO QD. Will continue to follow Patient seen in conjunction with Dr. Ratliff who agrees with this plan of care. - Patient Problems (1) Acute kidney injury Current Visit: Yes Status: Acute (2) Acute pulmonary embolism with acute cor pulmonale Current Visit: Yes Status: Acute Qualifiers: Pulmonary embolism type: saddle Qualified Code(s): I26.02 - Saddle embolus of pulmonary artery with acute cor pulmonale (3) Acute respiratory failure with hypoxia Current Visit: Yes Status: Resolved (4) Atrial fibrillation Current Visit: Yes Status: Acute Qualifiers: Atrial fibrillation type: persistent (not longstanding) Qualified Code(s): I48.19 - Other persistent atrial fibrillation; I48.1 - Persistent atrial fibrillation (5) Cardiopulmonary arrest Current Visit: Yes Status: Resolved (6) Hypokalemia Current Visit: Yes Status: Acute (7) Non-STEMI (non-ST elevated myocardial infarction) Current Visit: Yes Status: Acute (8) RBBB Current Visit: Yes Status: Chronic (9) Upper GI hemorrhage Current Visit: Yes Status: Acute Subjective Date of service: 11/19/20 Principal diagnosis: Ac. hypoxemic resp failure; P.E.; PNA; Cardiac arrest; TYLER; Shock Interval history: Patient resting in bed. Continue to reports swelling in RUE Sinus 70s on monitor Objective Vital Signs Temp Pulse Pulse Resp BP Pulse Ox 11/19/20 05:55 80 122/81 11/19/20 05:46 80 122/51 11/19/20 04:08 98.2 F 80 18 122/51 99 11/18/20 23:13 100.2 F H 86 18 145/62 95 11/18/20 22:55 84 132/61 11/18/20 22:18 97 11/18/20 21:30 83 132/61 11/18/20 20:00 80 98 H 20 97 11/18/20 18:58 98.6 F 83 18 132/61 96 11/18/20 16:06 98.7 F 77 18 160/83 100 11/18/20 15:56 98.0 F 81 18 141/61 100 - Physical Examination General: No Apparent Distress HEENT: Positive: EOMI, Normocephaly, Mucus Membranes Moist Neck: Positive: neck supple, trachea midline Cardiac: Positive: Reg Rate and Rhythm Lungs: Positive: Normal Breath Sounds Neuro: Positive: Grossly Intact Abdomen: Positive: Soft, Active Bowel Sounds. Negative: Tender Skin: Negative: Rash Musculoskeletal: Normal Range of Motion Extremities: Present: normal, Other (edema in RUE ). Absent: edema - Labs and Meds CBC 11/19/20 Range/Units 08:41 WBC 16.3 H (4.5-11.0) K/mm3 RBC 2.77 L (3.65-5.03) M/mm3 Hgb 8.3 L (10.1-14.3) gm/dl Hct 24.6 L (30.3-42.9) % Plt Count 345 (140-440) K/mm3 Lymph # (Auto) 2.0 (1.2-5.4) K/mm3 [place] # (Auto) 1.8 H (0.0-0.8) K/mm3 Eos # (Auto) 0.5 H (0.0-0.4) K/mm3 Baso # (Auto) 0.1 (0.0-0.1) K/mm3 Comprehensive Metabolic Panel 11/19/20 Range/Units 08:41 Sodium 136 L (137-145) mmol/L Potassium 3.0 L (3.6-5.0) mmol/L Chloride 101.2 (98-107) mmol/L Carbon Dioxide 22 (22-30) mmol/L BUN 20 H (7-17) mg/dL Creatinine 1.6 H (0.6-1.2) mg/dL Glucose 140 H (65-100) mg/dL Calcium 8.3 L (8.4-10.2) mg/dL - Imaging and Cardiology EKG: report reviewed Echo: report reviewed (11/10/2020 - EF 50-55%, normal RVSF, RV mildly dilated, mild MR, mild TR, mod pulm HTN w/RVSP of 51mmHg) - Telemetry EKG Rhythm: Sinus Rhythm - EKG Sinus rhythms and dysrhythmias: sinus rhythm AV and intraventricular conduction: right bundle branch block - Allied health notes Allied health notes reviewed: nursing
--- NOTE | 2020-11-19 12:42 | Progress Note ---
Assessment and Plan - Patient Problems (1) Acute kidney injury Current Visit: Yes Status: Acute Plan to address problem: Likely pre-renal injury in the setting of acute b/l PE with cor pulmonale and right sided heart failure. Agree with gentle IVF hydration with careful monitoring of respiratory/volume status. overall renal function has shown improvement. We will continue to monitor closely. (2) Acute pulmonary embolism with acute cor pulmonale Current Visit: Yes Status: Acute Qualifiers: Pulmonary embolism type: saddle Qualified Code(s): I26.02 - Saddle embolus of pulmonary artery with acute cor pulmonale Plan to address problem: s/p pulmonary angiography and placement of b/l thrombolytics catheter placement by vascular surgery. Follow up further recommendations from cardiology. stable respiratory status on oxygen via nasal cannula. (3) Cardiopulmonary arrest Current Visit: Yes Status: Resolved Plan to address problem: patient has now been weaned off all pressors and has been extubated and doing well at this time. Has been transferred out to the telemetry floor and is been stable. We will continue to monitor very closely. (4) Hypokalemia Current Visit: Yes Status: Acute Plan to address problem: replete per protocol. Subjective Date of service: 11/19/20 Principal diagnosis: Ac. hypoxemic resp failure; P.E.; PNA; Cardiac arrest; TYLER; Shock Interval history: no acute issues overnight. Labs showing stable renal function. Objective - Vital Signs Vital signs: Vital Signs - 12hr 11/19/20 11/19/20 11/19/20 04:08 05:46 05:55 Temperature 98.2 F Pulse Rate 80 80 80 Respiratory 18 Rate Blood Pressure 122/51 122/51 122/81 O2 Sat by Pulse 99 Oximetry - General Appearance General appearance: appears stated age, frail EENT: ATNC Neck: no JVD Respiratory: Present: Clear to Ascultation Cardiology: regular, S1S2 Gastrointestinal: normal Integumentary: no rash Neurologic: no focal deficit Musculoskeletal: deferred Psychiatric: cooperative - Lab 11/19/20 08:41 11/19/20 08:41 Most recent lab results ABG pH 7.427 pH Units (7.350-7.450) 11/14/20 12:15 ABG pCO2 31.2 mm Hg 11/14/20 12:15 ABG pO2 94.7 mm Hg (80.0-90.0) H 11/14/20 12:15 ABG HCO3 20.1 mmol/L (20.0-26.0) 11/14/20 12:15 ABG O2 Saturation 97.6 % (95.0-99.0) 11/14/20 12:15 Calcium 8.3 mg/dL (8.4-10.2) L 11/19/20 08:41 Phosphorus 3.40 mg/dL (2.5-4.5) D 11/15/20 02:46 Magnesium 1.60 mg/dL (1.7-2.3) L 11/19/20 08:41 Urine Creatinine 80.9 mg/dL (0.1-20.0) H 11/10/20 11:06 Urine Sodium 48 mmol/L 11/10/20 11:06 Medications & Allergies - Medications Allergies/Adverse Reactions: Allergies No Known Allergies Allergy (Verified 11/09/20 17:19) Home Medications: Home Medications Medication Instructions Recorded Confirmed Last Taken Type Diclofenac 1% [Diclofenac 1% 2 - 4 gm TP QID PRN MDD 32g 11/18/20 11/18/20 Unknown History topical gel] Levothyroxine [Synthroid] 100 mcg PO QAM 11/18/20 11/18/20 Unknown History amLODIPine [Norvasc] 5 mg PO DAILY 11/18/20 11/18/20 Unknown History hydroCHLOROthiazide [HCTZ] 12.5 mg PO QDAY 11/18/20 11/18/20 Unknown History Active Medications: Generic Name Dose Route Start Last Admin Trade Name Freq PRN Reason Stop Dose Admin Acetaminophen 650 mg 11/09/20 23:07 11/15/20 00:43 Acetaminophen 650 Mg Rect Supp [place] 650 mg Q6H PRN Administration Pain MILD(1-3)/Fever >100.5/REYES Acetaminophen 650 mg 11/09/20 23:59 11/19/20 00:17 Acetaminophen 325 Mg Tab PO 650 mg Q6H PRN Administration Pain, Mild (1-3) Hydrocodone Bitart/Acetaminophen 2 each 11/09/20 23:59 11/18/20 09:45 Hydrocodone/Acetaminophen 5-325 Mg Tab PO 2 each Q6H PRN Administration Pain, Moderate (4-6) Apixaban 10 mg 11/16/20 10:00 11/19/20 09:16 Apixaban 5 Mg Tab PO 11/22/20 22:01 10 mg Q12HR MELONY Administration Protocol Apixaban 5 mg 11/23/20 10:00 Apixaban 5 Mg Tab PO Q12HR MELONY Protocol Dextrose 50 ml 11/11/20 11:10 Dextrose 50% In Water (25gm) 50 Ml Syringe IV Q30MIN PRN Hypoglycemia Protocol Diltiazem HCl 240 mg 11/19/20 10:00 11/19/20 09:22 Diltiazem Cd 240 Mg Cap PO 240 mg QDAY MELONY Administration Hydralazine HCl 50 mg 11/18/20 14:00 11/19/20 05:55 Hydralazine 25 Mg Tab PO 50 mg Q8HR MELONY Administration Hydrophilic Ointment 1 applic 11/09/20 17:08 Lip Therapy Vaseline TP Q2H PRN Dry Lips Linezolid 600 mg in 300 mls @ 300 mls/hr 11/18/20 22:00 11/19/20 09:16 Zyvox 600mg/300ml IV 11/22/20 10:59 300 mls/hr Q12HR MELONY Administration Protocol Magnesium Sulfate 2 gm in 50 mls @ 25 mls/hr 11/19/20 11:00 11/19/20 11:29 Magnesium Sulfate 2gm/50ml IV 11/19/20 13:00 25 mls/hr ONCE@1100 NR Administration Insulin Human Regular 0 units 11/15/20 11:30 11/19/20 09:14 Insulin Regular, Human 100 Units/1 Ml SUB-Q Not Given ACHS [facility] Protocol Magnesium Hydroxide 30 ml 11/09/20 23:07 Magnesium Hydroxide (Mom) Oral Liqd Udc PO Q4H PRN Constipation Multi-Ingred Cream/Lotion/Oil/Oint 1 applic 11/09/20 17:08 Mineral Oil/Petrolatum, White Ophth Oint 3.5 Gm OU Q4H PRN Dry Eye(s) Ondansetron HCl 4 mg 11/09/20 23:07 Ondansetron 4 Mg/2 Ml Inj IV Q8H PRN Nausea And Vomiting Pantoprazole Sodium 40 mg 11/19/20 16:30 Pantoprazole 40 Mg Tab PO BIDAC MELONY Senna/Docusate Sodium 1 tab 11/09/20 22:00 11/19/20 09:17 Sennosides/Docusate Sodium 8.6/50 Mg Tab FEEDTUBE 1 tab BID MELONY Administration Sodium Chloride 10 ml 11/10/20 10:00 11/18/20 22:55 Sodium Chloride 0.9% 10 Ml Flush Syringe IV 10 ml BID MELONY Administration Sodium Chloride 10 ml 11/09/20 23:07 Sodium Chloride 0.9% 10 Ml Flush Syringe IV PRN PRN LINE FLUSH
--- NOTE | 2020-11-19 14:15 | Vascular Lab Report ---
DUPLEX DOPPLER UPPER EXTREMITY VENOUS, RIGHT INDICATION / CLINICAL INFORMATION: Right upper extremity swelling/rule out DVT. TECHNIQUE: Duplex doppler imaging was performed through the veins of the right upper extremity using venous compression and other maneuvers. COMPARISON: None available. FINDINGS: RIGHT INTERNAL JUGULAR VEIN: Negative. RIGHT SUBCLAVIAN VEIN: Negative. RIGHT AXILLARY VEIN: Negative. RIGHT BRACHIAL VEIN: Negative. RIGHT FOREARM VEINS: Negative. RIGHT BASILIC VEIN (SUPERFICIAL): Negative. ADDITIONAL FINDINGS: None. IMPRESSION: 1. No sonographic evidence for DVT. Signer Name: Joaquin Castillo Jr, MD Signed: 11/19/2020 2:11 PM Workstation Name: [id number]
[2020-11-19] MEDS: PANTOPRAZOLE 40 MG TAB PO SCH (15:53)
[2020-11-19] MEDS: POTASSIUM CHLORIDE ER 20 MEQ TAB PO SCH ×2 (15:53→21:41)
--- NOTE | 2020-11-19 23:13 | Progress Note ---
Assessment and Plan This 84-year-old female with HTN, CKD, chronic right BBB, arthritis admitted s/P cardiac arrest, pulmonary embolism , Pneumonia and GI bleed, tracheal cultures positive for MRSA on Zyvox, PT recommended subacute rehab placement. Assessment and plan -- Acute metabolic encephalopathy -CT head completed which shows no acute intracranial abnormality, probable meningioma along the right anterior frontal lobe -Avoid delirium -Patient is awake, follows commands, positive track/focus, pupils equal round reactive -Neurology consulted, appreciate recommendations -- S/p cardiopulmonary arrest, atrial fibrillation, acute diastolic heart failure -Cardiology consulted, appreciate recommendations -Echo 11/10/2020-EF 50 to 55%, right ventricular systolic function is normal, right ventricle is mildly dilated, left atrium not well visualized, mild mitral regurgitation, moderate pulmonary hypertension -Vasopressor support with Levophed -s/p dopamine and dobutamine with IVF -Blood pressure monitoring per protocol -As needed hydralazine --Acute hypoxic respiratory failure, with acute cor pulmonale -[facility] consulted, appreciate recommendations -Intubated 11/09 with 7.0 at 22 at the lip-> extuabted 11/14 -Placed on NC -Pulmonary hygiene --Upper GI hemorrhage, elevated LFTs -GI consulted, appreciate recommendations -s/p Protonix drip and now on Protonix IV BID -Hepatic serologies negative, hepatic panel negative -Per GI will reassess for EGD if patient develops severe GI bleeding -BR: Senokot -24-hour net balance -127 -Trend LFT -Gastric occult positive -passed bedside swallow eval -CLD, advance as tolerated -- Acute kidney injury, metabolic acidosis -Nephrology consulted, appreciate recommendations -Likely prerenal injury/vasomotor nephropathy in setting of acute bilateral pulmonary embolism with cor pulmonale and right-sided heart failure -Gentle IV hydration -Renal ultrasound showed no evidence of obstructive PE, bilateral echogenic kidneys -No indication for renal replacement at this time per nephrology -Urine electrolytes -Strict intake and output -Daily weights -Avoid nephrotoxic medications -Trend BMP -- Bilateral pneumonia, SIRS, lactic acidosis -Empiric antibiotics with Rocephin and azithromycin (11/09-11/13) -Monitor fever and WBC curve -CXR noted with worsening bilateral airspace disease -Tracheal aspirate with MRSA -ID consulted -started on ziovox --Large bilateral segmental and subsegmental PE, thrombocytopenia, coagulopathy, anemia, Left LE DVT -Vascular surgery consulted, appreciate recommendations -S/p pulmonary angiography with placement of thrombolytic catheters -Heparin drip -Transfuse for hemoglobin less than 7 -Trend CBC -S/p 1 unit PRBC -monitor for bleeding We will closely monitor patient and adjust management as needed Plan of care reviewed with the patient and her nurse, discussed with pulmonary critical Daily clinical course: 11/10: Patient seen and examined this morning review of her electrolytes shows some abnormalities with noted worsening renal failure in the setting of hypotension. Noted A. fib on EKG. Patient remains on EKOS system. Will obtain cardiology and nephrology evaluation. Echocardiogram to further evaluate condition of the heart in the setting of her cardiac arrest. Patient remains a P UI Covid testing is pending. Discussed with mechanical field engineer this morning may consider changing from dopamine to dobutamine but will await cardiology evaluation. Possible further hydration in the setting of underlying right heart failure. I did discuss with the family who are not aware of any renal problems in the past. Ventilator management per blackener. Closely monitor leukocytosis no fever noted at this time. I will replace potassium as noted hypokalemia Discussed with family the two daughters in detail 11/11: Patient is having blood-tinged secretions while suctioning, NG tube to dark secretions, gastric occult sent. PICC line ordered to be placed. Cardiology to change dopamine to dobutamine and start normal saline. No plans for hemodialysis per nephrology. 11/12: CPAP trial, PICC placement today and will remove femoral line after placement. No indication for renal replacement per nephrology. BLE doppler US per vascular. 11/13: Patient tolerating CPAP trial, per neurology consider MRI brain with Manuel, patient has staph areas in tracheal aspirate, appropriate response to PRBC, remains off vasopressors, worsening renal function. 11/14: Patient was extubated today, hypokalemia/hypomagnesemia/hypophosphatemia treated with K-Phos. Improvement to renal function noted. Patient passed bedside swallow and ordered a diet. Tracheal aspirate with MRSA-> Zyvox every 12 and ID consulted 11/15; PT, OT requested, will transition heparin drip to Eliquis with the morning dose tomorrow Mild hypokalemia, corrected with KCl, other electrolytes normal range, discussed with blackener Dr. Kristy Whiteside spoke with patient's daughter Raza Pizarro and 2 other siblings at [phone] I discussed extensively with all the details of patient's condition, tests and reports, consultants recommendation, her dramatic improvement, extubation and discharge planning issues. They had many questions answered all of them And encouraged them to call back if they have any new concerns. They were appreciative of my call 11/16; PT and OT are evaluating the patient, have not completed the recommendations DC planning per case management 11/17; patient is medically stable Pending PT and OT evaluation and recommendations Discharge planning per case management 11/18; PT recommended subacute placement. Right upper extremity swelling[follow Doppler study] MRSA tracheal cultures, on Zyvox, pending placement Discussed with [place] physician Dr. Medrano Disposition; subacute rehab placement when stable 11/19/20: -Right upper extremity swelling and edema, negative right upper extremity venous Doppler for SVT/DVT -MRSA tracheal cultures; on Zyvox, ID cleared for discharge on oral Zyvox -PT evaluation noted and appreciated, recommend subacute rehab placement - Patient is clinically stable for discharge, Pending subacute rehab placement Subjective Date of service: 11/19/20 Principal diagnosis: Ac. hypoxemic resp failure; P.E.; PNA; Cardiac arrest; TYLER; Shock Interval history: Patient seen and examined. Medical records and medication list reviewed. No acute event overnight noted by the RN. Patient denies any chest pain or difficulty breathing. Patient is tolerating di et. Discussed plan of care at bedside with patient. Objective - Exam Narrative Exam: General appearance: Present: no acute distress, well-nourished, obese, other (On 2 L nasal cannula) - EENT Eyes: Present: PERRL, EOM intact - Neck Neck: Present: supple, normal ROM - Respiratory Respiratory effort: normal Respiratory: bilateral: diminished, negative: rales, rhonchi, wheezing - Cardiovascular Rhythm: regular Heart Sounds: Present: S1 & S2 - Extremities Extremities: no ischemia, abnormal (Right upper extremity swelling) Extremity abnormal: edema (Right upper extremity) - Abdominal General gastrointestinal: soft, non-tender, non-distended, normal bowel sounds - Integumentary Integumentary: Present: clear, warm - Psychiatric Psychiatric: appropriate mood/affect - Neurologic Neurologic: moves all extremities - Constitutional Vitals: Vital Signs - 12hr 11/19/20 11/19/20 11/19/20 11:23 16:16 20:04 Temperature 98.3 F 98.5 F 98.3 F Pulse Rate 83 79 85 Respiratory 20 18 18 Rate Blood Pressure 139/63 143/57 116/53 O2 Sat by Pulse 100 100 100 Oximetry 11/19/20 21:40 Temperature Pulse Rate Respiratory Rate Blood Pressure 116/53 O2 Sat by Pulse Oximetry - Labs CBC & Chem 7: 11/19/20 08:41 11/19/20 08:41 Labs: Abnormal lab results 11/19/20 11/19/20 11/19/20 Range/Units 01:29 08:21 08:41 WBC 16.3 H (4.5-11.0) K/mm3 RBC 2.77 L (3.65-5.03) M/mm3 Hgb 8.3 L (10.1-14.3) gm/dl Hct 24.6 L (30.3-42.9) % RDW 15.3 H (13.2-15.2) % Lymph % (Auto) 12.0 L (13.4-35.0) % [place] % (Auto) 10.9 H (0.0-7.3) % [place] # (Auto) 1.8 H (0.0-0.8) K/mm3 Eos # (Auto) 0.5 H (0.0-0.4) K/mm3 Seg Neutrophils % 73.9 H (40.0-70.0) % Seg Neutrophils # 12.1 H (1.8-7.7) K/mm3 Sodium (137-145) mmol/L Potassium (3.6-5.0) mmol/L BUN (7-17) mg/dL Creatinine (0.6-1.2) mg/dL Glucose (65-100) mg/dL POC Glucose 164 H 137 H (70-105) mg/dL Calcium (8.4-10.2) mg/dL Magnesium (1.7-2.3) mg/dL 11/19/20 11/19/20 11/19/20 Range/Units 08:41 11:21 16:14 WBC (4.5-11.0) K/mm3 RBC (3.65-5.03) M/mm3 Hgb (10.1-14.3) gm/dl Hct (30.3-42.9) % RDW (13.2-15.2) % Lymph % (Auto) (13.4-35.0) % [place] % (Auto) (0.0-7.3) % [place] # (Auto) (0.0-0.8) K/mm3 Eos # (Auto) (0.0-0.4) K/mm3 Seg Neutrophils % (40.0-70.0) % Seg Neutrophils # (1.8-7.7) K/mm3 Sodium 136 L (137-145) mmol/L Potassium 3.0 L (3.6-5.0) mmol/L BUN 20 H (7-17) mg/dL Creatinine 1.6 H (0.6-1.2) mg/dL Glucose 140 H (65-100) mg/dL POC Glucose 164 H 110 H (70-105) mg/dL Calcium 8.3 L (8.4-10.2) mg/dL Magnesium 1.60 L (1.7-2.3) mg/dL 11/19/20 Range/Units 21:44 WBC (4.5-11.0) K/mm3 RBC (3.65-5.03) M/mm3 Hgb (10.1-14.3) gm/dl Hct (30.3-42.9) % RDW (13.2-15.2) % Lymph % (Auto) (13.4-35.0) % [place] % (Auto) (0.0-7.3) % [place] # (Auto) (0.0-0.8) K/mm3 Eos # (Auto) (0.0-0.4) K/mm3 Seg Neutrophils % (40.0-70.0) % Seg Neutrophils # (1.8-7.7) K/mm3 Sodium (137-145) mmol/L Potassium (3.6-5.0) mmol/L BUN (7-17) mg/dL Creatinine (0.6-1.2) mg/dL Glucose (65-100) mg/dL POC Glucose 142 H (70-105) mg/dL Calcium (8.4-10.2) mg/dL Magnesium (1.7-2.3) mg/dL HEART Score - HEART Score Troponin: Troponin T 0.873 ng/mL (0.00-0.029) H* D 11/09/20 23:05
[2020-11-20] MEDS: INSULIN REGULAR, HUMAN 100 UNITS/1 ML SUB-Q SCH (08:01)
--- NOTE | 2020-11-20 09:39 | Progress Note ---
Assessment and Plan - Patient Problems (1) Acute kidney injury Current Visit: Yes Status: Acute Plan to address problem: Likely pre-renal injury in the setting of acute b/l PE with cor pulmonale and right sided heart failure. Agree with gentle IVF hydration with careful monitoring of respiratory/volume status. overall renal function has shown improvement. We will continue to monitor closely. Pending labs this am (2) Acute pulmonary embolism with acute cor pulmonale Current Visit: Yes Status: Acute Qualifiers: Pulmonary embolism type: saddle Qualified Code(s): I26.02 - Saddle embolus of pulmonary artery with acute cor pulmonale Plan to address problem: s/p pulmonary angiography and placement of b/l thrombolytics catheter placement by vascular surgery. Follow up further recommendations from cardiology. stable respiratory status on oxygen via nasal cannula. (3) Cardiopulmonary arrest Current Visit: Yes Status: Resolved Plan to address problem: patient has now been weaned off all pressors and has been extubated and doing well at this time. Has been transferred out to the telemetry floor and is been stable. We will continue to monitor very closely. (4) Hypokalemia Current Visit: Yes Status: Acute Plan to address problem: replete per protocol. Subjective Date of service: 11/20/20 Principal diagnosis: Ac. hypoxemic resp failure; P.E.; PNA; Cardiac arrest; TYLER; Shock Interval history: No acute changes. Labs pending this am. Objective - Vital Signs Vital signs: Vital Signs - 12hr 11/19/20 11/19/20 11/20/20 21:40 23:00 00:48 Temperature 98.3 F Pulse Rate 82 84 Respiratory 18 Rate Blood Pressure 116/53 123/65 O2 Sat by Pulse 97 Oximetry 11/20/20 11/20/20 11/20/20 04:46 04:59 08:01 Temperature 98.6 F 98.2 F Pulse Rate 83 Respiratory 18 26 H Rate Blood Pressure 127/56 113/42 O2 Sat by Pulse 97 98 Oximetry - General Appearance General appearance: appears stated age, chronically ill EENT: ATNC Neck: no JVD Respiratory: Present: Clear to Ascultation Cardiology: regular Gastrointestinal: normal Integumentary: warm and dry Musculoskeletal: deferred Psychiatric: cooperative - Lab 11/19/20 08:41 11/19/20 08:41 Most recent lab results ABG pH 7.427 pH Units (7.350-7.450) 11/14/20 12:15 ABG pCO2 31.2 mm Hg 11/14/20 12:15 ABG pO2 94.7 mm Hg (80.0-90.0) H 11/14/20 12:15 ABG HCO3 20.1 mmol/L (20.0-26.0) 11/14/20 12:15 ABG O2 Saturation 97.6 % (95.0-99.0) 11/14/20 12:15 Calcium 8.3 mg/dL (8.4-10.2) L 11/19/20 08:41 Phosphorus 3.40 mg/dL (2.5-4.5) D 11/15/20 02:46 Magnesium 1.60 mg/dL (1.7-2.3) L 11/19/20 08:41 Urine Creatinine 80.9 mg/dL (0.1-20.0) H 11/10/20 11:06 Urine Sodium 48 mmol/L 11/10/20 11:06 - Allied health notes Allied health notes reviewed: nursing Medications & Allergies - Medications Allergies/Adverse Reactions: Allergies No Known Allergies Allergy (Verified 11/09/20 17:19) Home Medications: Home Medications Medication Instructions Recorded Confirmed Last Taken Type Diclofenac 1% [Diclofenac 1% 2 - 4 gm TP QID PRN MDD 32g 11/18/20 11/18/20 Unknown History topical gel] Levothyroxine [Synthroid] 100 mcg PO QAM 11/18/20 11/18/20 Unknown History amLODIPine [Norvasc] 5 mg PO DAILY 11/18/20 11/18/20 Unknown History hydroCHLOROthiazide [HCTZ] 12.5 mg PO QDAY 11/18/20 11/18/20 Unknown History Active Medications: Generic Name Dose Route Start Last Admin Trade Name Freq PRN Reason Stop Dose Admin Acetaminophen 650 mg 11/09/20 23:07 11/15/20 00:43 Acetaminophen 650 Mg Rect Supp [place] 650 mg Q6H PRN Administration Pain MILD(1-3)/Fever >100.5/REYES Acetaminophen 650 mg 11/09/20 23:59 11/19/20 00:17 Acetaminophen 325 Mg Tab PO 650 mg Q6H PRN Administration Pain, Mild (1-3) Hydrocodone Bitart/Acetaminophen 2 each 11/09/20 23:59 11/18/20 09:45 Hydrocodone/Acetaminophen 5-325 Mg Tab PO 2 each Q6H PRN Administration Pain, Moderate (4-6) Apixaban 10 mg 11/16/20 10:00 11/19/20 21:40 Apixaban 5 Mg Tab PO 11/22/20 22:01 10 mg Q12HR MELONY Administration Protocol Apixaban 5 mg 11/23/20 10:00 Apixaban 5 Mg Tab PO Q12HR [facility] Protocol Dextrose 50 ml 11/11/20 11:10 Dextrose 50% In Water (25gm) 50 Ml Syringe IV Q30MIN PRN Hypoglycemia Protocol Diltiazem HCl 240 mg 11/19/20 10:00 11/19/20 09:22 Diltiazem Cd 240 Mg Cap PO 240 mg QDAY MELONY Administration Hydralazine HCl 50 mg 11/18/20 14:00 11/19/20 21:40 Hydralazine 25 Mg Tab PO Not Given Q8HR [facility] Hydrophilic Ointment 1 applic 11/09/20 17:08 Lip Therapy Vaseline TP Q2H PRN Dry Lips Linezolid 600 mg in 300 mls @ 300 mls/hr 11/18/20 22:00 11/19/20 21:39 Zyvox 600mg/300ml IV 11/22/20 10:59 300 mls/hr Q12HR MELONY Administration Protocol Insulin Human Regular 0 units 11/15/20 11:30 11/19/20 18:25 Insulin Regular, Human 100 Units/1 Ml SUB-Q Not Given ACHS [facility] Protocol Magnesium Hydroxide 30 ml 11/09/20 23:07 Magnesium Hydroxide (Mom) Oral Liqd Udc PO Q4H PRN Constipation Multi-Ingred Cream/Lotion/Oil/Oint 1 applic 11/09/20 17:08 Mineral Oil/Petrolatum, White Ophth Oint 3.5 Gm OU Q4H PRN Dry Eye(s) Ondansetron HCl 4 mg 11/09/20 23:07 Ondansetron 4 Mg/2 Ml Inj IV Q8H PRN Nausea And Vomiting Pantoprazole Sodium 40 mg 11/19/20 16:30 11/19/20 15:53 Pantoprazole 40 Mg Tab PO 40 mg BIDAC MELONY Administration Potassium Chloride 40 meq 11/19/20 14:00 11/19/20 21:41 Potassium Chloride Er 20 Meq Tab PO 40 meq BID MELONY Administration Senna/Docusate Sodium 1 tab 11/09/20 22:00 11/19/20 21:40 Sennosides/Docusate Sodium 8.6/50 Mg Tab FEEDTUBE 1 tab BID MELONY Administration Sodium Chloride 10 ml 11/10/20 10:00 11/19/20 21:42 Sodium Chloride 0.9% 10 Ml Flush Syringe IV 10 ml BID MELONY Administration Sodium Chloride 10 ml 11/09/20 23:07 Sodium Chloride 0.9% 10 Ml Flush Syringe IV PRN PRN LINE FLUSH
[2020-11-20] MEDS: dilTIAZem CD 240 MG CAP PO SCH (11:00)
[2020-11-20] MEDS: APIXABAN 5 MG TAB PO SCH (11:01)
[2020-11-20] MEDS: POTASSIUM CHLORIDE ER 20 MEQ TAB PO SCH (11:01)
[2020-11-20] MEDS: SENNOSIDES/DOCUSATE SODIUM 8.6/50 MG TAB FEEDTUBE SCH (11:01)
[2020-11-20] MEDS: LINEZOLID 600 MG/300 ML BAG IV SCH (11:24)
[2020-11-20] MEDS: PANTOPRAZOLE 40 MG TAB PO SCH (11:24)
--- NOTE | 2020-11-20 11:52 | Progress Note ---
Assessment and Plan 84-year-old female with hypertension obesity suffered a cardiac arrest secondary to large pulmonary embolism with RV dysfunction and failure with a non-ST elevation ND hypotension and acute renal sufficiency Acute respiratory failure with hypoxia * Pulmonology is following Non-STEMI (non-ST elevated myocardial infarction) Acute pulmonary embolism with acute cor pulmonale Atrial fibrillation HTN * Anticoagulated with Eliquis * Telemetry reviewed: Patient currently sinus rhythm * Echo 11/10/2020-EF 50 to 55%, right ventricular systolic function is normal, right ventricle is mildly dilated, left atrium not well visualized, mild mitral regurgitation, moderate pulmonary hypertension * Currently on hydralazine and diltiazem Acute kidney injury * Nephrology currently following RUE Extremity swelling * venous doppler- no sign of RUE DVT Plan: Continue present management. Will continue to follow Patient seen in conjunction with Dr. Ratliff who agrees with this plan of care. - Patient Problems (1) Acute kidney injury Current Visit: Yes Status: Acute (2) Acute pulmonary embolism with acute cor pulmonale Current Visit: Yes Status: Acute Qualifiers: Pulmonary embolism type: saddle Qualified Code(s): I26.02 - Saddle embolus of pulmonary artery with acute cor pulmonale (3) Acute respiratory failure with hypoxia Current Visit: Yes Status: Resolved (4) Atrial fibrillation Current Visit: Yes Status: Acute Qualifiers: Atrial fibrillation type: persistent (not longstanding) Qualified Code(s): I48.19 - Other persistent atrial fibrillation; I48.1 - Persistent atrial fibrillation (5) Cardiopulmonary arrest Current Visit: Yes Status: Resolved (6) Hypokalemia Current Visit: Yes Status: Acute (7) Non-STEMI (non-ST elevated myocardial infarction) Current Visit: Yes Status: Acute (8) RBBB Current Visit: Yes Status: Chronic (9) Upper GI hemorrhage Current Visit: Yes Status: Acute Subjective Date of service: 11/20/20 Principal diagnosis: Ac. hypoxemic resp failure; P.E.; PNA; Cardiac arrest; TYLER; Shock Interval history: Patient resting in bed. Reports swelling in RUE has decreased. Sinus 70s on monitor with episode of SVT this am Objective Vital Signs Temp Pulse Resp BP Pulse Ox 11/20/20 08:01 98.2 F 26 H 113/42 11/20/20 04:59 98 11/20/20 04:46 98.6 F 83 18 127/56 97 11/20/20 00:48 98.3 F 84 18 123/65 97 11/19/20 23:00 82 11/19/20 21:40 116/53 11/19/20 20:04 98.3 F 85 18 116/53 100 11/19/20 16:16 98.5 F 79 18 143/57 100 - Physical Examination General: No Apparent Distress HEENT: Positive: EOMI, Normocephaly, Mucus Membranes Moist Neck: Positive: neck supple, trachea midline Cardiac: Positive: Reg Rate and Rhythm Lungs: Positive: Decreased Breath Sounds Neuro: Positive: Grossly Intact Abdomen: Positive: Soft, Active Bowel Sounds. Negative: Tender Skin: Negative: Rash Musculoskeletal: Normal Range of Motion Extremities: Present: normal, Other (edema in RUE ). Absent: edema - Imaging and Cardiology EKG: report reviewed Echo: report reviewed (11/10/2020 - EF 50-55%, normal RVSF, RV mildly dilated, mild MR, mild TR, mod pulm HTN w/RVSP of 51mmHg) - Telemetry EKG Rhythm: Sinus Rhythm - EKG Sinus rhythms and dysrhythmias: sinus rhythm AV and intraventricular conduction: right bundle branch block - Allied health notes Allied health notes reviewed: nursing
--- NOTE | 2020-11-20 14:21 | Discharge Summary ---
Providers - Providers Date of Admission: 11/09/20 23:07 Date of discharge: 11/27/20 Attending physician: ADRIANNE DAVALOS 11/09/20 22:30 Consult to Physician [CONS] Stat Comment: Consulting Provider: SUZETTE LOWERY Physician Instructions: Reason For Exam: Acute bilateral pulmonary emboli with right heart 11/09/20 23:08 Consult to Dietitian/Nutrition [CONS] Routine Physician Instructions: Reason For Exam: Reason for Consult: Diet education Consult to Physician [CONS] Routine Comment: Consulting Provider: TAYE NICHOLAS Physician Instructions: Reason For Exam: JAMIE. PULM.EMBOLISM,PNEUMONIA 11/10/20 08:58 Consult to Physician [CONS] Routine Comment: Consulting Provider: CRYSTAL MADRID Physician Instructions: Reason For Exam: cardiac arrest 11/10/20 09:01 Consult to Physician [CONS] Routine Comment: Consulting Provider: LAYNE GALLEGOS Physician Instructions: Reason For Exam: TYLER 11/10/20 16:19 Consult to Physician [CONS] Urgent Comment: Consulting Provider: SUZETTE CASTILLO Physician Instructions: Reason For Exam: Acute G.I. Bleed 11/11/20 14:33 Consult to Dietitian/Nutrition [CONS] Routine Physician Instructions: Reason For Exam: Reason for Consult: Write/Manage Tube Feeding 11/11/20 15:45 Consult to PICC Line RN [CONS] Routine Reason For Exam: need for vasopressor Type Line:: PICC 11/12/20 09:04 Consult to Physician [CONS] Routine Comment: spoke to dr. mohr/ eliu Consulting Provider: PRANAY MOHR Physician Instructions: Reason For Exam: s/p cardiac arrest 11/14/20 12:49 Consult to Physician [CONS] Routine Comment: called office/ eliu Consulting Provider: DANA ARAMBULA Physician Instructions: Reason For Exam: MRSA Pneumonia & Sepsis 11/14/20 13:24 Occupational Therapy Evaluate and Treat [CONS] Routine Comment: Reason For Exam: Debility Physical Therapy Evaluation and Treat [CONS] Routine Comment: Reason For Exam: Debility Hospitalization Condition: Stable Hospital course: This 84-year-old female with HTN, CKD, chronic right BBB, arthritis admitted on 11/09/20 s/P cardiac arrest, pulmonary embolism , Pneumonia and GI bleed, tracheal cultures positive for MRSA placed on Zyvox, -Intubated 11/09 then extuabted 11/14, PT recommended subacute rehab placement. -CT head completed which shows no acute intracranial abnormality, probable meningioma along the right anterior frontal lobe -Echo 11/10/2020-EF 50 to 55%, right ventricular systolic function is normal, right ventricle is mildly dilated, left atrium not well visualized, mild mitral regurgitation, moderate pulmonary hypertension -Renal ultrasound showed no evidence of obstructive hydronephrosis, bilateral echogenic kidneys -CXR noted with worsening bilateral airspace disease Daily clinical course: 11/09/20: Patient started on anticoagulation with heparin for massive PE, intubated due to cardiac arrest. However patient is being taken to the [facility] for possible thrombolytics.Vascular surgeon following. placed on empiric abx for PNA, iv fluid, consulted nephrology 11/10: Patient seen and examined this morning review of her electrolytes shows some abnormalities with noted worsening renal failure in the setting of hypotension. Noted A. fib on EKG. Patient remains on EKOS system. Will obtain cardiology and nephrology evaluation. Echocardiogram to further evaluate condition of the heart in the setting of her cardiac arrest. Patient remains a PUI Covid testing is pending. Discussed with vice president for philanthropy this morning may consider changing from dopamine to dobutamine but will await cardiology evaluation. Possible further hydration in the setting of underlying right heart failure. I did discuss with the family who are not aware of any renal problems in the past. Ventilator management per leather belt loop cutter. Closely monitor leukocytosis no fever noted at this time. I will replace potassium as noted hypokalemia Discussed with family the two daughters in detail 11/11: COVID PCR is negative. Patient is having blood-tinged secretions while suctioning, NG tube to dark secretions, gastric occult sent. PICC line ordered to be placed. Cardiology to change dopamine to dobutamine and start normal saline. No plans for hemodialysis per nephrology. 11/12: CPAP trial, PICC placement today and will remove femoral line after placement. No indication for renal replacement per nephrology. BLE doppler US per vascular. 11/13: Patient tolerating CPAP trial, per neurology consider MRI brain with Manuel, patient has staph areas in tracheal aspirate, appropriate response to PRBC, remains off vasopressors, worsening renal function. 11/14: Patient was extubated today, hypokalemia/hypomagnesemia/hypophosphatemia treated with K-Phos. Improvement to renal function noted. Patient passed bedside swallow and ordered a diet. Tracheal aspirate with MRSA-> Zyvox every 12 and ID consulted 11/15; PT, OT requested, will transition heparin drip to Eliquis with the morning dose tomorrow Mild hypokalemia, corrected with KCl, other electrolytes normal range, discussed with leather belt loop cutter Dr. Wagner I spoke with patient's daughter Raza Pizarro and 2 other siblings at [phone] I discussed extensively with all the details of patient's condition, tests and reports, consultants recommendation, her dramatic improvement, extubation and discharge planning issues. They had many questions answered all of them And encouraged them to call back if they have any new concerns. They were appreciative of my call 11/16; PT and OT are evaluating the patient, have not completed the r ecommendations DC planning per case management 11/17; patient is medically stable Pending PT and OT evaluation and recommendations Discharge planning per case management 11/18; PT recommended subacute placement. Right upper extremity swelling[follow Doppler study] MRSA tracheal cultures, on Zyvox, pending placement Discussed with [place] physician Dr. Medrano Disposition; subacute rehab placement when stable 11/19/20: -Right upper extremity swelling and edema, negative right upper extremity venous Doppler for SVT/DVT -MRSA tracheal cultures; on Zyvox, ID cleared for discharge on oral Zyvox -PT evaluation noted and appreciated, recommend subacute rehab placement - Patient is clinically stable for discharge, Pending subacute rehab placement 11/20/20: Placement arranged for [facility], d/c to [facility] in stable condition with outpt f/u Disposition: 03 [facility] Final Discharge Diagnosis (Prints w/discharge instructions): -- Acute metabolic encephalopathy. -- S/p cardiopulmonary arrest,. --Paroxysmal atrial fibrillation,. --acute diastolic heart failure. --Acute hypoxic respiratory failure, with acute cor pulmonale. --Upper GI hemorrhage, elevated LFTs. -- Acute kidney injury, metabolic acidosis. -- Bilateral pneumonia, SIRS, lactic acidosis. --Large bilateral segmental and subsegmental PE,. --thrombocytopenia, coagulopathy, anemia,. -- Left LE DVT. --Hypokalemia, hypomagnesemia Time spent for discharge: 34 minutes Core Measure Documentation - Palliative Care Palliative Care/ Comfort Measures: Not Applicable - Core Measures Any of the following diagnoses?: history only Exam - Physical Exam Narrative exam: General appearance: Present: no acute distress, well-nourished, obese, other (On 2 L nasal cannula) - EENT Eyes: Present: PERRL, EOM intact - Neck Neck: Present: supple, normal ROM - Respiratory Respiratory effort: normal Respiratory: bilateral: diminished, negative: rales, rhonchi, wheezing - Cardiovascular Rhythm: regular Heart Sounds: Present: S1 & S2 - Extremities Extremities: no ischemia, abnormal (Right upper extremity swelling) Extremity abnormal: edema (Right upper extremity) - Abdominal General gastrointestinal: soft, non-tender, non-distended, normal bowel sounds - Integumentary Integumentary: Present: clear, warm - Psychiatric Psychiatric: appropriate mood/affect - Neurologic Neurologic: moves all extremities - Constitutional Vitals: Temp Pulse Resp BP Pulse Ox 98.2 F 83 26 H 113/42 98 11/20/20 08:01 11/20/20 04:46 11/20/20 08:01 11/20/20 08:01 11/20/20 04:59 Plan Activity: fall precautions Weight Bearing Status: Non-Weight Bearing Diet: low fat, low salt Follow up with: JAVIER LOPEZ [Other] - 3-5 Days Prescriptions: Apixaban [Eliquis] 5 mg PO Q12HR #60 tablet Linezolid [Zyvox] 600 mg PO BID #11 tablet
--- NOTE | 2020-11-20 14:36 | Progress Note ---
Assessment and Plan This is a 84-year-old female with HTN, CKD, chronic RBBB, arthritis who presented to the emergency department on 11/09 from the department With valuation of difficulty breathing and shortness of breath. Upon arrival to the emergency department patient was actively unresponsive and positive pressure ventilation was started and subsequently had a cardiac arrest with eventual ROSC. Work-up emergency department revealed elevated D-dimer of greater than 10,000, elevated lactic acid, CTA showed bilateral segmental and subsegmental emboli with right heart strain, bibasilar airspace consolidation and trace right pleural effusion compatible with pneumonia. Vascular surgery was consulted for thrombolysis. Patient was admitted to the hospitalist service. Patient has no histry of smoking, alcohol or drug abuse. 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 No known allergies. Patient awake and talking with her family on I PAD. Patient is on 2 litres O2. O2 saturation running 98%. No complaint of chest pain, shortness of breath or cough.No acute respiratory distress . Patient afebrile. Has leukocytosis. Blood pressure 113/42. Pulse 83. Chest xray 11/14/20 reported Faint ill-defined densities within the lower lungs have not significantly improved from yesterday's exam. No pneumothorax. Patient is on Apixaban, Zyvox, and protonix. - Patient Problems (1) Acute respiratory failure with hypoxia Current Visit: Yes Status: Resolved Plan to address problem: Patient intubated and extubated. patient presently on 2 litres O2. Apixaban Protonix. (2) Acute massive pulmonary embolism Current Visit: Yes Status: Acute Plan to address problem: Patient is on Apixaban. (3) Bilateral pneumonia Current Visit: Yes Status: Acute Plan to address problem: Patient is on Zyvox. (4) Left leg DVT Current Visit: Yes Status: Acute Plan to address problem: Patient is on Apixaban. (5) Non-STEMI (non-ST elevated myocardial infarction) Current Visit: Yes Status: Acute Plan to address problem: Management as per Cardiology. (6) Paroxysmal atrial fibrillation Current Visit: Yes Status: Acute Plan to address problem: Patient is on Apixaban. Management as per cardiology. (7) Hypertension Current Visit: Yes Status: Chronic Qualifiers: Hypertension type: primary hypertension Qualified Code(s): I10 - Essential (primary) hypertension Plan to address problem: Management as per primary care. (8) Acute kidney injury Current Visit: Yes Status: Acute Plan to address problem: Management as per nephrology. (9) Cardiopulmonary arrest Current Visit: Yes Status: Resolved Plan to address problem: Patient resucitated and ROSC. Subjective Date of service: 11/20/20 Principal diagnosis: Ac. hypoxemic resp failure; P.E.; PNA; Cardiac arrest; TYLER; Shock Interval history: This is a 84-year-old female with HTN, CKD, chronic RBBB, arthritis who presented to the emergency department on 11/09 from the department With valuation of difficulty breathing and shortness of breath. Upon arrival to the emergency department patient was actively unresponsive and positive pressure ventilation was started and subsequently had a cardiac arrest with eventual ROSC. Work-up emergency department revealed elevated D-dimer of greater than 10,000, elevated lactic acid, CTA showed bilateral segmental and subsegmental emboli with right heart strain, bibasilar airspace consolidation and trace right pleural effusion compatible with pneumonia. Vascular surgery was consulted for thrombolysis. Patient was admitted to the hospitalist service. Patient has no histry of smoking, alcohol or drug abuse. 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 Has three children. No known allergies. Patient awake and talking with her family on I PAD. Patient is on 2 litres O2. O2 saturation running 98%. No complaint of chest pain, shortness of breath or cough.No acute respiratory distress . Patient afebrile. Has leukocytosis. Blood pressure 113/42. Pulse 83. Chest xray 11/14/20 reported Faint ill-defined densities within the lower lungs have not significantly improved from yesterday's exam. No pneumothorax. Patient is on Apixaban, Zyvox, and protonix. Objective Vital Signs - 12hr 11/20/20 11/20/20 11/20/20 04:46 04:59 08:01 Temperature 98.6 F 98.2 F Pulse Rate 83 Respiratory 18 26 H Rate Blood Pressure 127/56 113/42 O2 Sat by Pulse 97 98 Oximetry Constitutional: no acute distress, alert, other (elderly obese female with mildly increased respiratory effort at rest and weak.) Eyes: non-icteric ENT: oropharynx moist Neck: supple, no lymphadenopathy, no JVD Effort: normal Ascultation: Bilateral: diminished breath sounds, rhonchi (scant bases) Percussion: Bilateral: not dull Cardiovascular: regular rate and rhythm Gastrointestinal: normoactive bowel sounds, soft, non-tender, non-distended (protuberant) Integumentary: normal Extremities: no cyanosis, pulses normal, no ischemia or petechiae Neurologic: non-focal exam (grossly), pupils equal and round, CN II-XII normal Psychiatric: mood appropriate, affect normal CBC and BMP: 11/19/20 08:41 11/20/20 13:53 ABG, PT/INR, D-dimer: ABG ABG pH 7.427 pH Units (7.350-7.450) 11/14/20 12:15 POC ABG pCO2 33.5 mmHg (32.0-48.0) 11/13/20 04:03 ABG pCO2 31.2 mm Hg 11/14/20 12:15 POC ABG pO2 145.7 mmHg (83-108) H 11/13/20 04:03 ABG pO2 94.7 mm Hg (80.0-90.0) H 11/14/20 12:15 POC ABG HCO3 17.9 11/13/20 04:03 ABG O2 Saturation 97.6 % (95.0-99.0) 11/14/20 12:15 PT/INR, D-dimer PT 15.4 Sec. (12.2-14.9) H 11/15/20 23:08 INR 1.17 (0.87-1.13) H 11/15/20 23:08 D-Dimer > 68210 ng/mlDDU (0-234) H 11/10/20 04:28 Abnormal lab findings: Abnormal Labs 11/09/20 11/09/20 11/09/20 17:24 17:24 17:24 WBC RBC 3.29 L Hgb Hct RDW Plt Count 100 L Lymph % (Auto) 54.6 H [place] % (Auto) [place] # (Auto) Eos # (Auto) Seg Neutrophils % 38.5 L Seg Neuts % (Manual) Lymphocytes % (Manual) Seg Neutrophils # Seg Neutrophils # Man Lymphocytes # (Manual) PT 19.9 H INR 1.64 H APTT 49.2 H Fibrinogen D-Dimer > 91310 H Heparin Anti-Xa Level ABG pH POC ABG pO2 ABG pO2 ABG HCO3 ABG O2 Saturation ABG Base Excess ABG Hemoglobin ABG Oxyhemoglobin ABG Sodium ABG Potassium ABG Chloride ABG Glucose Oxyhemoglobin Carboxyhemoglobin Sodium Potassium 2.9 L* Chloride Carbon Dioxide 13 L BUN Creatinine 1.4 H Glucose 391 H POC Glucose Lactic Acid Calcium Phosphorus Magnesium AST ALT Lactate Dehydrogenase Total Creatine Kinase CK-MB (CK-2) 5.0 H CK-MB (CK-2) Rel Index 4.8 H Troponin T 0.263 H* C-Reactive Protein NT-Pro-B Natriuret Pep Total Protein Albumin Triglycerides 163 H HDL Cholesterol 29 L Arterial Blood Glucose Arterial Blood Ionized Calcium Urine Creatinine Urine Chloride Crossmatch 11/09/20 11/09/20 11/09/20 17:24 17:24 18:11 WBC RBC Hgb Hct RDW Plt Count Lymph % (Auto) [place] % (Auto) [place] # (Auto) Eos # (Auto) Seg Neutrophils % Seg Neuts % (Manual) Lymphocytes % (Manual) Seg Neutrophils # Seg Neutrophils # Man Lymphocytes # (Manual) PT INR APTT Fibrinogen D-Dimer Heparin Anti-Xa Level ABG pH POC ABG pO2 ABG pO2 ABG HCO3 ABG O2 Saturation ABG Base Excess ABG Hemoglobin ABG Oxyhemoglobin ABG Sodium ABG Potassium ABG Chloride ABG Glucose Oxyhemoglobin Carboxyhemoglobin Sodium Potassium Chloride Carbon Dioxide BUN Creatinine Glucose POC Glucose Lactic Acid 11.40 H* Calcium Phosphorus Magnesium AST 312 H ALT 273 H Lactate Dehydrogenase Total Creatine Kinase CK-MB (CK-2) CK-MB (CK-2) Rel Index Troponin T C-Reactive Protein NT-Pro-B Natriuret Pep 1169 H Total Protein 5.2 L Albumin 2.8 L Triglycerides HDL Cholesterol Arterial Blood Glucose Arterial Blood Ionized Calcium Urine Creatinine Urine Chloride Crossmatch See Detail 11/09/20 11/09/20 11/09/20 18:21 20:07 20:07 WBC RBC Hgb Hct RDW Plt Count Lymph % (Auto) [place] % (Auto) [place] # (Auto) Eos # (Auto) Seg Neutrophils % Seg Neuts % (Manual) Lymphocytes % (Manual) Seg Neutrophils # Seg Neutrophils # Man Lymphocytes # (Manual) PT INR APTT Fibrinogen D-Dimer Heparin Anti-Xa Level ABG pH 7.053 L POC ABG pO2 159.6 H ABG pO2 ABG HCO3 ABG O2 Saturation ABG Base Excess ABG Hemoglobin ABG Oxyhemoglobin ABG Sodium 135.1 L ABG Potassium ABG Chloride ABG Glucose 421 H Oxyhemoglobin Carboxyhemoglobin 0.3 L Sodium Potassium Chloride Carbon Dioxide BUN Creatinine Glucose POC Glucose Lactic Acid 9.00 H* Calcium Phosphorus Magnesium AST ALT Lactate Dehydrogenase Total Creatine Kinase 340 H CK-MB (CK-2) 14.2 H CK-MB (CK-2) Rel Index 4.1 H Troponin T 0.553 H* D C-Reactive Protein NT-Pro-B Natriuret Pep Total Protein Albumin Triglycerides HDL Cholesterol Arterial Blood Glucose 421 H Arterial Blood Ionized Calcium Urine Creatinine Urine Chloride Crossmatch 11/09/20 11/09/20 11/10/20 23:05 23:05 00:42 WBC RBC Hgb Hct RDW Plt Count Lymph % (Auto) [place] % (Auto) [place] # (Auto) Eos # (Auto) Seg Neutrophils % Seg Neuts % (Manual) Lymphocytes % (Manual) Seg Neutrophils # Seg Neutrophils # Man Lymphocytes # (Manual) PT 19.8 H INR 1.63 H APTT Fibrinogen 210 L D-Dimer Heparin Anti-Xa Level 0.79 H ABG pH POC ABG pO2 ABG pO2 ABG HCO3 ABG O2 Saturation ABG Base Excess ABG Hemoglobin ABG Oxyhemoglobin ABG Sodium ABG Potassium ABG Chloride ABG Glucose Oxyhemoglobin Carboxyhemoglobin Sodium Potassium Chloride Carbon Dioxide BUN Creatinine Glucose POC Glucose Lactic Acid 6.80 H* Calcium Phosphorus Magnesium AST ALT Lactate Dehydrogenase Total Creatine Kinase 449 H CK-MB (CK-2) 18.4 H CK-MB (CK-2) Rel Index Troponin T 0.873 H* D C-Reactive Protein NT-Pro-B Natriuret Pep Total Protein Albumin Triglycerides HDL Cholesterol Arterial Blood Glucose Arterial Blood Ionized Calcium Urine Creatinine Urine Chloride Crossmatch 11/10/20 11/10/20 11/10/20 04:28 04:28 04:28 WBC RBC Hgb Hct RDW Plt Count Lymph % (Auto) [place] % (Auto) [place] # (Auto) Eos # (Auto) Seg Neutrophils % Seg Neuts % (Manual) Lymphocytes % (Manual) Seg Neutrophils # Seg Neutrophils # Man Lymphocytes # (Manual) PT 20.3 H INR 1.69 H APTT Fibrinogen D-Dimer > 56244 H Heparin Anti-Xa Level ABG pH POC ABG pO2 ABG pO2 ABG HCO3 ABG O2 Saturation ABG Base Excess ABG Hemoglobin ABG Oxyhemoglobin ABG Sodium ABG Potassium ABG Chloride ABG Glucose Oxyhemoglobin Carboxyhemoglobin Sodium 136 L Potassium 3.3 L Chloride Carbon Dioxide 16 L BUN 21 H Creatinine 1.8 H Glucose 376 H POC Glucose Lactic Acid Calcium Phosphorus Magnesium AST ALT Lactate Dehydrogenase 1637 H Total Creatine Kinase CK-MB (CK-2) CK-MB (CK-2) Rel Index Troponin T C-Reactive Protein 3.50 H NT-Pro-B Natriuret Pep Total Protein Albumin Triglycerides HDL Cholesterol Arterial Blood Glucose Arterial Blood Ionized Calcium Urine Creatinine Urine Chloride Crossmatch 11/10/20 11/10/20 11/10/20 04:28 04:28 05:13 WBC 17.7 H RBC Hgb Hct RDW Plt Count Lymph % (Auto) [place] % (Auto) [place] # (Auto) Eos # (Auto) Seg Neutrophils % Seg Neuts % (Manual) 96.0 H Lymphocytes % (Manual) 1.0 L Seg Neutrophils # Seg Neutrophils # Man 17.0 H Lymphocytes # (Manual) 0.2 L PT INR APTT Fibrinogen D-Dimer Heparin Anti-Xa Level ABG pH 7.221 L POC ABG pO2 162.0 H ABG pO2 ABG HCO3 ABG O2 Saturation ABG Base Excess ABG Hemoglobin 11.7 L ABG Oxyhemoglobin 98.9 H ABG Sodium 133.6 L ABG Potassium 3.1 L ABG Chloride ABG Glucose 346 H Oxyhemoglobin Carboxyhemoglobin 0.1 L Sodium Potassium Chloride Carbon Dioxide BUN Creatinine Glucose POC Glucose Lactic Acid 6.10 H* Calcium Phosphorus Magnesium AST ALT Lactate Dehydrogenase Total Creatine Kinase CK-MB (CK-2) CK-MB (CK-2) Rel Index Troponin T C-Reactive Protein NT-Pro-B Natriuret Pep Total Protein Albumin Triglycerides HDL Cholesterol Arterial Blood Glucose 346 H Arterial Blood Ionized Calcium Urine Creatinine Urine Chloride Crossmatch 11/10/20 11/10/20 11/10/20 11:06 12:30 15:08 WBC 16.1 H RBC 3.20 L Hgb 9.7 L Hct 29.5 L RDW Plt Count Lymph % (Auto) 7.4 L [place] % (Auto) 8.7 H [place] # (Auto) 1.4 H Eos # (Auto) Seg Neutrophils % 83.7 H Seg Neuts % (Manual) Lymphocytes % (Manual) Seg Neutrophils # 13.5 H Seg Neutrophils # Man Lymphocytes # (Manual) PT 18.9 H INR 1.53 H APTT 204.8 H* Fibrinogen D-Dimer Heparin Anti-Xa Level 0.76 H ABG pH POC ABG pO2 ABG pO2 ABG HCO3 ABG O2 Saturation ABG Base Excess ABG Hemoglobin ABG Oxyhemoglobin ABG Sodium ABG Potassium ABG Chloride ABG Glucose Oxyhemoglobin Carboxyhemoglobin Sodium Potassium Chloride Carbon Dioxide BUN Creatinine Glucose POC Glucose Lactic Acid Calcium Phosphorus Magnesium AST ALT Lactate Dehydrogenase Total Creatine Kinase CK-MB (CK-2) CK-MB (CK-2) Rel Index Troponin T C-Reactive Protein NT-Pro-B Natriuret Pep Total Protein Albumin Triglycerides HDL Cholesterol Arterial Blood Glucose Arterial Blood Ionized Calcium Urine Creatinine 80.9 H Urine Chloride 38.8 L Crossmatch 11/10/20 11/10/20 11/10/20 15:08 17:17 18:25 WBC RBC Hgb Hct RDW Plt Count Lymph % (Auto) [place] % (Auto) [place] # (Auto) Eos # (Auto) Seg Neutrophils % Seg Neuts % (Manual) Lymphocytes % (Manual) Seg Neutrophils # Seg Neutrophils # Man Lymphocytes # (Manual) PT INR APTT Fibrinogen D-Dimer Heparin Anti-Xa Level ABG pH 7.206 L POC ABG pO2 ABG pO2 ABG HCO3 18.3 L ABG O2 Saturation ABG Base Excess -9.2 L ABG Hemoglobin 9.4 L ABG Oxyhemoglobin ABG Sodium ABG Potassium ABG Chloride ABG Glucose Oxyhemoglobin 94.3 L Carboxyhemoglobin Sodium Potassium Chloride Carbon Dioxide BUN Creatinine Glucose POC Glucose 200 H Lactic Acid 4.10 H* Calcium Phosphorus Magnesium AST ALT Lactate Dehydrogenase Total Creatine Kinase CK-MB (CK-2) CK-MB (CK-2) Rel Index Troponin T C-Reactive Protein NT-Pro-B Natriuret Pep Total Protein Albumin Triglycerides HDL Cholesterol Arterial Blood Glucose Arterial Blood Ionized Calcium Urine Creatinine Urine Chloride Crossmatch 11/10/20 11/10/20 11/10/20 19:54 20:21 21:13 WBC RBC Hgb 9.7 L Hct 28.4 L RDW Plt Count Lymph % (Auto) [place] % (Auto) [place] # (Auto) Eos # (Auto) Seg Neutrophils % Seg Neuts % (Manual) Lymphocytes % (Manual) Seg Neutrophils # Seg Neutrophils # Man Lymphocytes # (Manual) PT INR APTT Fibrinogen D-Dimer Heparin Anti-Xa Level 0.13 L ABG pH 7.297 L POC ABG pO2 ABG pO2 ABG HCO3 ABG O2 Saturation ABG Base Excess ABG Hemoglobin 7.3 L ABG Oxyhemoglobin ABG Sodium 135.6 L ABG Potassium ABG Chloride 111.0 H ABG Glucose 153 H Oxyhemoglobin Carboxyhemoglobin Sodium Potassium Chloride Carbon Dioxide BUN Creatinine Glucose POC Glucose Lactic Acid Calcium Phosphorus Magnesium AST ALT Lactate Dehydrogenase Total Creatine Kinase CK-MB (CK-2) CK-MB (CK-2) Rel Index Troponin T C-Reactive Protein NT-Pro-B Natriuret Pep Total Protein Albumin Triglycerides HDL Cholesterol Arterial Blood Glucose 153 H Arterial Blood Ionized Calcium Urine Creatinine Urine Chloride Crossmatch 11/10/20 11/11/20 11/11/20 23:30 04:12 04:35 WBC 16.0 H RBC 2.83 L Hgb 8.7 L Hct 25.8 L RDW Plt Count Lymph % (Auto) [place] % (Auto) [place] # (Auto) Eos # (Auto) Seg Neutrophils % Seg Neuts % (Manual) Lymphocytes % (Manual) Seg Neutrophils # Seg Neutrophils # Man Lymphocytes # (Manual) PT INR APTT Fibrinogen D-Dimer Heparin Anti-Xa Level 0.29 L ABG pH POC ABG pO2 ABG pO2 ABG HCO3 ABG O2 Saturation ABG Base Excess ABG Hemoglobin ABG Oxyhemoglobin ABG Sodium ABG Potassium ABG Chloride ABG Glucose Oxyhemoglobin Carboxyhemoglobin Sodium Potassium Chloride Carbon Dioxide BUN Creatinine Glucose POC Glucose 166 H Lactic Acid Calcium Phosphorus Magnesium AST ALT Lactate Dehydrogenase Total Creatine Kinase CK-MB (CK-2) CK-MB (CK-2) Rel Index Troponin T C-Reactive Protein NT-Pro-B Natriuret Pep Total Protein Albumin Triglycerides HDL Cholesterol Arterial Blood Glucose Arterial Blood Ionized Calcium Urine Creatinine Urine Chloride Crossmatch 11/11/20 11/11/20 11/11/20 04:35 05:00 05:01 WBC RBC Hgb Hct RDW Plt Count Lymph % (Auto) [place] % (Auto) [place] # (Auto) Eos # (Auto) Seg Neutrophils % Seg Neuts % (Manual) Lymphocytes % (Manual) Seg Neutrophils # Seg Neutrophils # Man Lymphocytes # (Manual) PT INR APTT Fibrinogen D-Dimer Heparin Anti-Xa Level ABG pH POC ABG pO2 ABG pO2 ABG HCO3 ABG O2 Saturation ABG Base Excess ABG Hemoglobin ABG Oxyhemoglobin ABG Sodium ABG Potassium ABG Chloride ABG Glucose Oxyhemoglobin Carboxyhemoglobin Sodium 136 L Potassium Chloride Carbon Dioxide 17 L BUN 25 H Creatinine 2.5 H Glucose 192 H POC Glucose 191 H Lactic Acid 2.20 H* Calcium 7.6 L Phosphorus Magnesium AST 232 H ALT 309 H Lactate Dehydrogenase Total Creatine Kinase CK-MB (CK-2) CK-MB (CK-2) Rel Index Troponin T C-Reactive Protein NT-Pro-B Natriuret Pep Total Protein 5.7 L Albumin 2.7 L Triglycerides HDL Cholesterol Arterial Blood Glucose Arterial Blood Ionized Calcium Urine Creatinine Urine Chloride Crossmatch 11/11/20 11/11/20 11/11/20 09:45 12:34 14:40 WBC RBC Hgb Hct RDW Plt Count Lymph % (Auto) [place] % (Auto) [place] # (Auto) Eos # (Auto) Seg Neutrophils % Seg Neuts % (Manual) Lymphocytes % (Manual) Seg Neutrophils # Seg Neutrophils # Man Lymphocytes # (Manual) PT INR APTT Fibrinogen D-Dimer Heparin Anti-Xa Level ABG pH POC ABG pO2 ABG pO2 172.4 H ABG HCO3 16.7 L ABG O2 Saturation 99.1 H ABG Base Excess -7.9 L ABG Hemoglobin 6.1 L ABG Oxyhemoglobin ABG Sodium ABG Potassium ABG Chloride ABG Glucose Oxyhemoglobin Carboxyhemoglobin Sodium Potassium Chloride Carbon Dioxide BUN Creatinine Glucose POC Glucose 141 H Lactic Acid 2.70 H* Calcium Phosphorus Magnesium AST ALT Lactate Dehydrogenase Total Creatine Kinase CK-MB (CK-2) CK-MB (CK-2) Rel Index Troponin T C-Reactive Protein NT-Pro-B Natriuret Pep Total Protein Albumin Triglycerides HDL Cholesterol Arterial Blood Glucose Arterial Blood Ionized Calcium Urine Creatinine Urine Chloride Crossmatch 11/11/20 11/11/20 11/11/20 17:06 21:00 23:20 WBC RBC Hgb 7.1 L Hct 20.9 L RDW Plt Count Lymph % (Auto) [place] % (Auto) [place] # (Auto) Eos # (Auto) Seg Neutrophils % Seg Neuts % (Manual) Lymphocytes % (Manual) Seg Neutrophils # Seg Neutrophils # Man Lymphocytes # (Manual) PT INR APTT Fibrinogen D-Dimer Heparin Anti-Xa Level ABG pH 7.287 L POC ABG pO2 ABG pO2 ABG HCO3 ABG O2 Saturation ABG Base Excess ABG Hemoglobin 7.5 L ABG Oxyhemoglobin ABG Sodium 134.1 L ABG Potassium ABG Chloride 110.0 H ABG Glucose 141 H Oxyhemoglobin Carboxyhemoglobin Sodium Potassium Chloride Carbon Dioxide BUN Creatinine Glucose POC Glucose 157 H Lactic Acid Calcium Phosphorus Magnesium AST ALT Lactate Dehydrogenase Total Creatine Kinase CK-MB (CK-2) CK-MB (CK-2) Rel Index Troponin T C-Reactive Protein NT-Pro-B Natriuret Pep Total Protein Albumin Triglycerides HDL Cholesterol Arterial Blood Glucose 141 H Arterial Blood Ionized Calcium 4.2 L Urine Creatinine Urine Chloride Crossmatch 11/11/20 11/12/20 11/12/20 23:30 04:26 04:26 WBC 16.8 H RBC 2.25 L Hgb 6.8 L Hct 20.5 L RDW Plt Count Lymph % (Auto) [place] % (Auto) [place] # (Auto) Eos # (Auto) Seg Neutrophils % Seg Neuts % (Manual) Lymphocytes % (Manual) Seg Neutrophils # Seg Neutrophils # Man Lymphocytes # (Manual) PT INR APTT Fibrinogen D-Dimer Heparin Anti-Xa Level ABG pH POC ABG pO2 ABG pO2 ABG HCO3 ABG O2 Saturation ABG Base Excess ABG Hemoglobin ABG Oxyhemoglobin ABG Sodium ABG Potassium ABG Chloride ABG Glucose Oxyhemoglobin Carboxyhemoglobin Sodium Potassium Chloride 110.1 H Carbon Dioxide 18 L BUN 25 H Creatinine 2.4 H Glucose 146 H POC Glucose 127 H Lactic Acid Calcium 7.4 L Phosphorus Magnesium AST ALT Lactate Dehydrogenase Total Creatine Kinase CK-MB (CK-2) CK-MB (CK-2) Rel Index Troponin T C-Reactive Protein NT-Pro-B Natriuret Pep Total Protein Albumin Triglycerides HDL Cholesterol Arterial Blood Glucose Arterial Blood Ionized Calcium Urine Creatinine Urine Chloride Crossmatch 11/12/20 11/12/20 11/12/20 04:26 06:01 12:02 WBC RBC Hgb Hct RDW Plt Count Lymph % (Auto) [place] % (Auto) [place] # (Auto) Eos # (Auto) Seg Neutrophils % Seg Neuts % (Manual) Lymphocytes % (Manual) Seg Neutrophils # Seg Neutrophils # Man Lymphocytes # (Manual) PT 17.6 H INR 1.40 H APTT 162.1 H* Fibrinogen D-Dimer Heparin Anti-Xa Level ABG pH POC ABG pO2 ABG pO2 ABG HCO3 ABG O2 Saturation ABG Base Excess ABG Hemoglobin ABG Oxyhemoglobin ABG Sodium ABG Potassium ABG Chloride ABG Glucose Oxyhemoglobin Carboxyhemoglobin Sodium Potassium Chloride Carbon Dioxide BUN Creatinine Glucose POC Glucose 134 H 131 H Lactic Acid Calcium Phosphorus Magnesium AST ALT Lactate Dehydrogenase Total Creatine Kinase CK-MB (CK-2) CK-MB (CK-2) Rel Index Troponin T C-Reactive Protein NT-Pro-B Natriuret Pep Total Protein Albumin Triglycerides HDL Cholesterol Arterial Blood Glucose Arterial Blood Ionized Calcium Urine Creatinine Urine Chloride Crossmatch 11/12/20 11/12/20 11/12/20 12:05 12:34 17:26 WBC RBC Hgb 6.8 L Hct 20.3 L RDW Plt Count Lymph % (Auto) [place] % (Auto) [place] # (Auto) Eos # (Auto) Seg Neutrophils % Seg Neuts % (Manual) Lymphocytes % (Manual) Seg Neutrophils # Seg Neutrophils # Man Lymphocytes # (Manual) PT INR APTT Fibrinogen D-Dimer Heparin Anti-Xa Level ABG pH 7.297 L POC ABG pO2 ABG pO2 ABG HCO3 ABG O2 Saturation ABG Base Excess ABG Hemoglobin 7.3 L ABG Oxyhemoglobin ABG Sodium 135.6 L ABG Potassium ABG Chloride 111.0 H ABG Glucose 153 H Oxyhemoglobin Carboxyhemoglobin Sodium Potassium Chloride Carbon Dioxide BUN Creatinine Glucose POC Glucose 119 H Lactic Acid Calcium Phosphorus Magnesium AST ALT Lactate Dehydrogenase Total Creatine Kinase CK-MB (CK-2) CK-MB (CK-2) Rel Index Troponin T C-Reactive Protein NT-Pro-B Natriuret Pep Total Protein Albumin Triglycerides HDL Cholesterol Arterial Blood Glucose 153 H Arterial Blood Ionized Calcium Urine Creatinine Urine Chloride Crossmatch 11/12/20 11/13/20 11/13/20 23:49 02:11 02:11 WBC 15.9 H RBC 2.38 L Hgb 7.1 L Hct 21.3 L RDW Plt Count Lymph % (Auto) [place] % (Auto) 8.9 H [place] # (Auto) 1.4 H Eos # (Auto) Seg Neutrophils % 73.5 H Seg Neuts % (Manual) Lymphocytes % (Manual) Seg Neutrophils # 11.7 H Seg Neutrophils # Man Lymphocytes # (Manual) PT INR APTT Fibrinogen D-Dimer Heparin Anti-Xa Level ABG pH POC ABG pO2 ABG pO2 ABG HCO3 ABG O2 Saturation ABG Base Excess ABG Hemoglobin ABG Oxyhemoglobin ABG Sodium ABG Potassium ABG Chloride ABG Glucose Oxyhemoglobin Carboxyhemoglobin Sodium Potassium Chloride 109.8 H Carbon Dioxide 18 L BUN 26 H Creatinine 2.3 H Glucose 109 H POC Glucose 118 H Lactic Acid Calcium 7.7 L Phosphorus Magnesium AST ALT Lactate Dehydrogenase Total Creatine Kinase CK-MB (CK-2) CK-MB (CK-2) Rel Index Troponin T C-Reactive Protein NT-Pro-B Natriuret Pep Total Protein Albumin Triglycerides HDL Cholesterol Arterial Blood Glucose Arterial Blood Ionized Calcium Urine Creatinine Urine Chloride Crossmatch 11/13/20 11/13/20 11/13/20 04:03 06:01 07:50 WBC RBC Hgb 7.7 L Hct 23.3 L RDW Plt Count Lymph % (Auto) [place] % (Auto) [place] # (Auto) Eos # (Auto) Seg Neutrophils % Seg Neuts % (Manual) Lymphocytes % (Manual) Seg Neutrophils # Seg Neutrophils # Man Lymphocytes # (Manual) PT INR APTT Fibrinogen D-Dimer Heparin Anti-Xa Level ABG pH POC ABG pO2 145.7 H ABG pO2 ABG HCO3 ABG O2 Saturation ABG Base Excess ABG Hemoglobin 7.2 L ABG Oxyhemoglobin ABG Sodium 135.3 L ABG Potassium ABG Chloride 113.0 H ABG Glucose 108 H Oxyhemoglobin Carboxyhemoglobin Sodium Potassium Chloride Carbon Dioxide BUN Creatinine Glucose POC Glucose 108 H Lactic Acid Calcium Phosphorus Magnesium AST ALT Lactate Dehydrogenase Total Creatine Kinase CK-MB (CK-2) CK-MB (CK-2) Rel Index Troponin T C-Reactive Protein NT-Pro-B Natriuret Pep Total Protein Albumin Triglycerides HDL Cholesterol Arterial Blood Glucose 108 H Arterial Blood Ionized Calcium 4.3 L Urine Creatinine Urine Chloride Crossmatch 11/13/20 11/13/20 11/13/20 12:00 14:30 17:10 WBC RBC Hgb 7.5 L Hct 22.6 L RDW Plt Count Lymph % (Auto) [place] % (Auto) [place] # (Auto) Eos # (Auto) Seg Neutrophils % Seg Neuts % (Manual) Lymphocytes % (Manual) Seg Neutrophils # Seg Neutrophils # Man Lymphocytes # (Manual) PT INR APTT Fibrinogen D-Dimer Heparin Anti-Xa Level ABG pH POC ABG pO2 ABG pO2 ABG HCO3 ABG O2 Saturation ABG Base Excess ABG Hemoglobin ABG Oxyhemoglobin ABG Sodium ABG Potassium ABG Chloride ABG Glucose Oxyhemoglobin Carboxyhemoglobin Sodium Potassium Chloride Carbon Dioxide BUN Creatinine Glucose POC Glucose 147 H 110 H Lactic Acid Calcium Phosphorus Magnesium AST ALT Lactate Dehydrogenase Total Creatine Kinase CK-MB (CK-2) CK-MB (CK-2) Rel Index Troponin T C-Reactive Protein NT-Pro-B Natriuret Pep Total Protein Albumin Triglycerides HDL Cholesterol Arterial Blood Glucose Arterial Blood Ionized Calcium Urine Creatinine Urine Chloride Crossmatch 11/13/20 11/14/20 11/14/20 21:22 12:15 14:50 WBC RBC Hgb Hct RDW Plt Count Lymph % (Auto) [place] % (Auto) [place] # (Auto) Eos # (Auto) Seg Neutrophils % Seg Neuts % (Manual) Lymphocytes % (Manual) Seg Neutrophils # Seg Neutrophils # Man Lymphocytes # (Manual) PT INR APTT Fibrinogen D-Dimer Heparin Anti-Xa Level 0.10 L ABG pH POC ABG pO2 ABG pO2 97.2 H 94.7 H ABG HCO3 18.6 L ABG O2 Saturation ABG Base Excess -6.1 L -3.7 L ABG Hemoglobin 9.2 L 8.3 L ABG Oxyhemoglobin ABG Sodium ABG Potassium ABG Chloride ABG Glucose Oxyhemoglobin Carboxyhemoglobin Sodium Potassium Chloride Carbon Dioxide BUN Creatinine Glucose POC Glucose Lactic Acid Calcium Phosphorus Magnesium AST ALT Lactate Dehydrogenase Total Creatine Kinase CK-MB (CK-2) CK-MB (CK-2) Rel Index Troponin T C-Reactive Protein NT-Pro-B Natriuret Pep Total Protein Albumin Triglycerides HDL Cholesterol Arterial Blood Glucose Arterial Blood Ionized Calcium Urine Creatinine Urine Chloride Crossmatch 11/14/20 11/14/20 11/14/20 14:50 17:53 Unknown WBC 15.9 H RBC 2.61 L Hgb 7.8 L Hct 23.1 L RDW Plt Count Lymph % (Auto) [place] % (Auto) [place] # (Auto) Eos # (Auto) Seg Neutrophils % Seg Neuts % (Manual) Lymphocytes % (Manual) Seg Neutrophils # Seg Neutrophils # Man Lymphocytes # (Manual) PT INR APTT Fibrinogen D-Dimer Heparin Anti-Xa Level ABG pH POC ABG pO2 ABG pO2 ABG HCO3 ABG O2 Saturation ABG Base Excess ABG Hemoglobin ABG Oxyhemoglobin ABG Sodium ABG Potassium ABG Chloride ABG Glucose Oxyhemoglobin Carboxyhemoglobin Sodium Potassium Chloride Carbon Dioxide BUN Creatinine Glucose POC Glucose 113 H Lactic Acid Calcium Phosphorus Magnesium AST ALT Lactate Dehydrogenase Total Creatine Kinase CK-MB (CK-2) CK-MB (CK-2) Rel Index Troponin T C-Reactive Protein 9.40 H NT-Pro-B Natriuret Pep Total Protein Albumin Triglycerides HDL Cholesterol Arterial Blood Glucose Arterial Blood Ionized Calcium Urine Creatinine Urine Chloride Crossmatch 11/14/20 11/15/20 11/15/20 Unknown 00:10 02:46 WBC 15.2 H RBC 2.83 L Hgb 8.7 L Hct 25.6 L RDW Plt Count Lymph % (Auto) [place] % (Auto) [place] # (Auto) Eos # (Auto) Seg Neutrophils % Seg Neuts % (Manual) Lymphocytes % (Manual) Seg Neutrophils # Seg Neutrophils # Man Lymphocytes # (Manual) PT INR APTT Fibrinogen D-Dimer Heparin Anti-Xa Level 0.18 L ABG pH POC ABG pO2 ABG pO2 ABG HCO3 ABG O2 Saturation ABG Base Excess ABG Hemoglobin ABG Oxyhemoglobin ABG Sodium ABG Potassium ABG Chloride ABG Glucose Oxyhemoglobin Carboxyhemoglobin Sodium Potassium 3.3 L Chloride 107.8 H Carbon Dioxide 18 L BUN 22 H Creatinine 1.7 H Glucose POC Glucose Lactic Acid Calcium 8.2 L Phosphorus 1.70 L Magnesium 1.40 L AST ALT 88 H Lactate Dehydrogenase Total Creatine Kinase CK-MB (CK-2) CK-MB (CK-2) Rel Index Troponin T C-Reactive Protein NT-Pro-B Natriuret Pep Total Protein 6.0 L Albumin 2.7 L Triglycerides HDL Cholesterol Arterial Blood Glucose Arterial Blood Ionized Calcium Urine Creatinine Urine Chloride Crossmatch 11/15/20 11/15/20 11/15/20 02:46 06:36 08:20 WBC RBC Hgb Hct RDW Plt Count Lymph % (Auto) [place] % (Auto) [place] # (Auto) Eos # (Auto) Seg Neutrophils % Seg Neuts % (Manual) Lymphocytes % (Manual) Seg Neutrophils # Seg Neutrophils # Man Lymphocytes # (Manual) PT INR APTT Fibrinogen D-Dimer Heparin Anti-Xa Level 0.12 L ABG pH POC ABG pO2 ABG pO2 ABG HCO3 ABG O2 Saturation ABG Base Excess ABG Hemoglobin ABG Oxyhemoglobin ABG Sodium ABG Potassium ABG Chloride ABG Glucose Oxyhemoglobin Carboxyhemoglobin Sodium Potassium 3.5 L Chloride Carbon Dioxide 17 L BUN 22 H Creatinine 1.7 H Glucose POC Glucose 107 H Lactic Acid Calcium 8.2 L Phosphorus Magnesium AST ALT Lactate Dehydrogenase Total Creatine Kinase CK-MB (CK-2) CK-MB (CK-2) Rel Index Troponin T C-Reactive Protein NT-Pro-B Natriuret Pep Total Protein Albumin Triglycerides HDL Cholesterol Arterial Blood Glucose Arterial Blood Ionized Calcium Urine Creatinine Urine Chloride Crossmatch 11/15/20 11/15/20 11/15/20 11:35 15:56 16:06 WBC RBC Hgb Hct RDW Plt Count Lymph % (Auto) [place] % (Auto) [place] # (Auto) Eos # (Auto) Seg Neutrophils % Seg Neuts % (Manual) Lymphocytes % (Manual) Seg Neutrophils # Seg Neutrophils # Man Lymphocytes # (Manual) PT INR APTT Fibrinogen D-Dimer Heparin Anti-Xa Level 0.14 L ABG pH POC ABG pO2 ABG pO2 ABG HCO3 ABG O2 Saturation ABG Base Excess ABG Hemoglobin ABG Oxyhemoglobin ABG Sodium ABG Potassium ABG Chloride ABG Glucose Oxyhemoglobin Carboxyhemoglobin Sodium Potassium Chloride Carbon Dioxide BUN Creatinine Glucose POC Glucose 145 H 118 H Lactic Acid Calcium Phosphorus Magnesium AST ALT Lactate Dehydrogenase Total Creatine Kinase CK-MB (CK-2) CK-MB (CK-2) Rel Index Troponin T C-Reactive Protein NT-Pro-B Natriuret Pep Total Protein Albumin Triglycerides HDL Cholesterol Arterial Blood Glucose Arterial Blood Ionized Calcium Urine Creatinine Urine Chloride Crossmatch 11/15/20 11/15/20 11/15/20 23:08 23:08 23:08 WBC 13.4 H RBC 2.72 L Hgb 8.3 L Hct 24.4 L RDW Plt Count Lymph % (Auto) [place] % (Auto) [place] # (Auto) Eos # (Auto) Seg Neutrophils % Seg Neuts % (Manual) Lymphocytes % (Manual) Seg Neutrophils # Seg Neutrophils # Man Lymphocytes # (Manual) PT 15.4 H INR 1.17 H APTT 52.0 H Fibrinogen D-Dimer Heparin Anti-Xa Level 0.12 L ABG pH POC ABG pO2 ABG pO2 ABG HCO3 ABG O2 Saturation ABG Base Excess ABG Hemoglobin ABG Oxyhemoglobin ABG Sodium ABG Potassium ABG Chloride ABG Glucose Oxyhemoglobin Carboxyhemoglobin Sodium Potassium Chloride Carbon Dioxide BUN Creatinine Glucose POC Glucose Lactic Acid Calcium Phosphorus Magnesium AST ALT Lactate Dehydrogenase Total Creatine Kinase CK-MB (CK-2) CK-MB (CK-2) Rel Index Troponin T C-Reactive Protein NT-Pro-B Natriuret Pep Total Protein Albumin Triglycerides HDL Cholesterol Arterial Blood Glucose Arterial Blood Ionized Calcium Urine Creatinine Urine Chloride Crossmatch 11/15/20 11/15/20 11/16/20 23:08 23:32 05:14 WBC RBC Hgb Hct RDW Plt Count Lymph % (Auto) [place] % (Auto) [place] # (Auto) Eos # (Auto) Seg Neutrophils % Seg Neuts % (Manual) Lymphocytes % (Manual) Seg Neutrophils # Seg Neutrophils # Man Lymphocytes # (Manual) PT INR APTT Fibrinogen D-Dimer Heparin Anti-Xa Level ABG pH POC ABG pO2 ABG pO2 ABG HCO3 ABG O2 Saturation ABG Base Excess ABG Hemoglobin ABG Oxyhemoglobin ABG Sodium ABG Potassium ABG Chloride ABG Glucose Oxyhemoglobin Carboxyhemoglobin Sodium Potassium Chloride Carbon Dioxide BUN Creatinine 1.6 H Glucose POC Glucose 120 H 141 H Lactic Acid Calcium Phosphorus Magnesium AST ALT Lactate Dehydrogenase Total Creatine Kinase CK-MB (CK-2) CK-MB (CK-2) Rel Index Troponin T C-Reactive Protein NT-Pro-B Natriuret Pep Total Protein Albumin Triglycerides HDL Cholesterol Arterial Blood Glucose Arterial Blood Ionized Calcium Urine Creatinine Urine Chloride Crossmatch 11/16/20 11/16/20 11/16/20 06:17 07:31 11:45 WBC RBC Hgb 8.8 L Hct 25.9 L RDW Plt Count Lymph % (Auto) [place] % (Auto) [place] # (Auto) Eos # (Auto) Seg Neutrophils % Seg Neuts % (Manual) Lymphocytes % (Manual) Seg Neutrophils # Seg Neutrophils # Man Lymphocytes # (Manual) PT INR APTT Fibrinogen D-Dimer Heparin Anti-Xa Level ABG pH POC ABG pO2 ABG pO2 ABG HCO3 ABG O2 Saturation ABG Base Excess ABG Hemoglobin ABG Oxyhemoglobin ABG Sodium ABG Potassium ABG Chloride ABG Glucose Oxyhemoglobin Carboxyhemoglobin Sodium Potassium Chloride Carbon Dioxide BUN Creatinine Glucose POC Glucose 118 H 118 H Lactic Acid Calcium Phosphorus Magnesium AST ALT Lactate Dehydrogenase Total Creatine Kinase CK-MB (CK-2) CK-MB (CK-2) Rel Index Troponin T C-Reactive Protein NT-Pro-B Natriuret Pep Total Protein Albumin Triglycerides HDL Cholesterol Arterial Blood Glucose Arterial Blood Ionized Calcium Urine Creatinine Urine Chloride Crossmatch 11/16/20 11/16/20 11/16/20 15:58 17:17 21:24 WBC RBC Hgb Hct RDW Plt Count Lymph % (Auto) [place] % (Auto) [place] # (Auto) Eos # (Auto) Seg Neutrophils % Seg Neuts % (Manual) Lymphocytes % (Manual) Seg Neutrophils # Seg Neutrophils # Man Lymphocytes # (Manual) PT INR APTT Fibrinogen D-Dimer Heparin Anti-Xa Level ABG pH POC ABG pO2 ABG pO2 ABG HCO3 ABG O2 Saturation ABG Base Excess ABG Hemoglobin ABG Oxyhemoglobin ABG Sodium ABG Potassium ABG Chloride ABG Glucose Oxyhemoglobin Carboxyhemoglobin Sodium Potassium Chloride Carbon Dioxide BUN Creatinine Glucose POC Glucose 153 H 132 H 132 H Lactic Acid Calcium Phosphorus Magnesium AST ALT Lactate Dehydrogenase Total Creatine Kinase CK-MB (CK-2) CK-MB (CK-2) Rel Index Troponin T C-Reactive Protein NT-Pro-B Natriuret Pep Total Protein Albumin Triglycerides HDL Cholesterol Arterial Blood Glucose Arterial Blood Ionized Calcium Urine Creatinine Urine Chloride Crossmatch 11/17/20 11/17/20 11/17/20 04:48 15:31 21:46 WBC 14.2 H RBC 2.85 L Hgb 8.5 L Hct 25.5 L RDW 15.5 H Plt Count Lymph % (Auto) [place] % (Auto) [place] # (Auto) Eos # (Auto) Seg Neutrophils % Seg Neuts % (Manual) Lymphocytes % (Manual) Seg Neutrophils # Seg Neutrophils # Man Lymphocytes # (Manual) PT INR APTT Fibrinogen D-Dimer Heparin Anti-Xa Level ABG pH POC ABG pO2 ABG pO2 ABG HCO3 ABG O2 Saturation ABG Base Excess ABG Hemoglobin ABG Oxyhemoglobin ABG Sodium ABG Potassium ABG Chloride ABG Glucose Oxyhemoglobin Carboxyhemoglobin Sodium Potassium Chloride Carbon Dioxide BUN Creatinine Glucose POC Glucose 131 H 168 H Lactic Acid Calcium Phosphorus Magnesium AST ALT Lactate Dehydrogenase Total Creatine Kinase CK-MB (CK-2) CK-MB (CK-2) Rel Index Troponin T C-Reactive Protein NT-Pro-B Natriuret Pep Total Protein Albumin Triglycerides HDL Cholesterol Arterial Blood Glucose Arterial Blood Ionized Calcium Urine Creatinine Urine Chloride Crossmatch 11/18/20 11/18/20 11/18/20 07:39 11:39 15:54 WBC RBC Hgb Hct RDW Plt Count Lymph % (Auto) [place] % (Auto) [place] # (Auto) Eos # (Auto) Seg Neutrophils % Seg Neuts % (Manual) Lymphocytes % (Manual) Seg Neutrophils # Seg Neutrophils # Man Lymphocytes # (Manual) PT INR APTT Fibrinogen D-Dimer Heparin Anti-Xa Level ABG pH POC ABG pO2 ABG pO2 ABG HCO3 ABG O2 Saturation ABG Base Excess ABG Hemoglobin ABG Oxyhemoglobin ABG Sodium ABG Potassium ABG Chloride ABG Glucose Oxyhemoglobin Carboxyhemoglobin Sodium Potassium Chloride Carbon Dioxide BUN Creatinine Glucose POC Glucose 177 H 185 H 127 H Lactic Acid Calcium Phosphorus Magnesium AST ALT Lactate Dehydrogenase Total Creatine Kinase CK-MB (CK-2) CK-MB (CK-2) Rel Index Troponin T C-Reactive Protein NT-Pro-B Natriuret Pep Total Protein Albumin Triglycerides HDL Cholesterol Arterial Blood Glucose Arterial Blood Ionized Calcium Urine Creatinine Urine Chloride Crossmatch 11/19/20 11/19/20 11/19/20 01:29 08:21 08:41 WBC 16.3 H RBC 2.77 L Hgb 8.3 L Hct 24.6 L RDW 15.3 H Plt Count Lymph % (Auto) 12.0 L [place] % (Auto) 10.9 H [place] # (Auto) 1.8 H Eos # (Auto) 0.5 H Seg Neutrophils % 73.9 H Seg Neuts % (Manual) Lymphocytes % (Manual) Seg Neutrophils # 12.1 H Seg Neutrophils # Man Lymphocytes # (Manual) PT INR APTT Fibrinogen D-Dimer Heparin Anti-Xa Level ABG pH POC ABG pO2 ABG pO2 ABG HCO3 ABG O2 Saturation ABG Base Excess ABG Hemoglobin ABG Oxyhemoglobin ABG Sodium ABG Potassium ABG Chloride ABG Glucose Oxyhemoglobin Carboxyhemoglobin Sodium Potassium Chloride Carbon Dioxide BUN Creatinine Glucose POC Glucose 164 H 137 H Lactic Acid Calcium Phosphorus Magnesium AST ALT Lactate Dehydrogenase Total Creatine Kinase CK-MB (CK-2) CK-MB (CK-2) Rel Index Troponin T C-Reactive Protein NT-Pro-B Natriuret Pep Total Protein Albumin Triglycerides HDL Cholesterol Arterial Blood Glucose Arterial Blood Ionized Calcium Urine Creatinine Urine Chloride Crossmatch 11/19/20 11/19/20 11/19/20 08:41 11:21 16:14 WBC RBC Hgb Hct RDW Plt Count Lymph % (Auto) [place] % (Auto) [place] # (Auto) Eos # (Auto) Seg Neutrophils % Seg Neuts % (Manual) Lymphocytes % (Manual) Seg Neutrophils # Seg Neutrophils # Man Lymphocytes # (Manual) PT INR APTT Fibrinogen D-Dimer Heparin Anti-Xa Level ABG pH POC ABG pO2 ABG pO2 ABG HCO3 ABG O2 Saturation ABG Base Excess ABG Hemoglobin ABG Oxyhemoglobin ABG Sodium ABG Potassium ABG Chloride ABG Glucose Oxyhemoglobin Carboxyhemoglobin Sodium 136 L Potassium 3.0 L Chloride Carbon Dioxide BUN 20 H Creatinine 1.6 H Glucose 140 H POC Glucose 164 H 110 H Lactic Acid Calcium 8.3 L Phosphorus Magnesium 1.60 L AST ALT Lactate Dehydrogenase Total Creatine Kinase CK-MB (CK-2) CK-MB (CK-2) Rel Index Troponin T C-Reactive Protein NT-Pro-B Natriuret Pep Total Protein Albumin Triglycerides HDL Cholesterol Arterial Blood Glucose Arterial Blood Ionized Calcium Urine Creatinine Urine Chloride Crossmatch 11/19/20 11/20/20 21:44 11:03 WBC RBC Hgb Hct RDW Plt Count Lymph % (Auto) [place] % (Auto) [place] # (Auto) Eos # (Auto) Seg Neutrophils % Seg Neuts % (Manual) Lymphocytes % (Manual) Seg Neutrophils # Seg Neutrophils # Man Lymphocytes # (Manual) PT INR APTT Fibrinogen D-Dimer Heparin Anti-Xa Level ABG pH POC ABG pO2 ABG pO2 ABG HCO3 ABG O2 Saturation ABG Base Excess ABG Hemoglobin ABG Oxyhemoglobin ABG Sodium ABG Potassium ABG Chloride ABG Glucose Oxyhemoglobin Carboxyhemoglobin Sodium Potassium Chloride Carbon Dioxide BUN Creatinine Glucose POC Glucose 142 H 167 H Lactic Acid Calcium Phosphorus Magnesium AST ALT Lactate Dehydrogenase Total Creatine Kinase CK-MB (CK-2) CK-MB (CK-2) Rel Index Troponin T C-Reactive Protein NT-Pro-B Natriuret Pep Total Protein Albumin Triglycerides HDL Cholesterol Arterial Blood Glucose Arterial Blood Ionized Calcium Urine Creatinine Urine Chloride Crossmatch Allied health notes reviewed: nursing
[2020-11-20 15:51] VITALS: BP 129/69
[2020-11-23] MEDS ORDERED: APIXABAN 5 MG TAB PO SCH (10:00)
== END 2020-11-20 16:29 | DRG 166 ==
LOC: ED 16:46 → CC1 23:07 → 4A 11-17 00:28
PROVIDERS: ADMIT Internal Medicine Geriatric Medicine; ATTEND Internal Medicine
PROC: 5A1955Z Respiratory Ventilation, Greater than 96 Consecutive Hours (ICD-10-PCS; principal; 2020-11-09)
PROC: 0BH17EZ Insertion of Endotracheal Airway into Trachea, Via Natural or Artificial Opening (ICD-10-PCS; 2020-11-09)
PROC: 06HY33Z Insertion of Infusion Device into Lower Vein, Percutaneous Approach (ICD-10-PCS; 2020-11-09)
PROC: 5A12012 Performance of Cardiac Output, Single, Manual (ICD-10-PCS; 2020-11-09)
PROC: 02HR33Z Insertion of Infusion Device into Left Pulmonary Artery, Percutaneous Approach (ICD-10-PCS; 2020-11-10)
PROC: 02HQ33Z Insertion of Infusion Device into Right Pulmonary Artery, Percutaneous Approach (ICD-10-PCS; 2020-11-10)
PROC: 06H03DZ Insertion of Intraluminal Device into Inferior Vena Cava, Percutaneous Approach (ICD-10-PCS; 2020-11-10)
PROC: 3E05317 Introduction of Other Thrombolytic into Peripheral Artery, Percutaneous Approach (ICD-10-PCS; 2020-11-10)
PROC: 02FR3Z0 Fragmentation of Left Pulmonary Artery, Percutaneous Approach, Ultrasonic (ICD-10-PCS; 2020-11-10)
PROC: 02FQ3Z0 Fragmentation of Right Pulmonary Artery, Percutaneous Approach, Ultrasonic (ICD-10-PCS; 2020-11-10)
PROC: 4A033R1 Measurement of Arterial Saturation, Peripheral, Percutaneous Approach (ICD-10-PCS; 2020-11-11)
PROC: 30233N1 Transfusion of Nonautologous Red Blood Cells into Peripheral Vein, Percutaneous Approach (ICD-10-PCS; 2020-11-12)
PROC: 02HV33Z Insertion of Infusion Device into Superior Vena Cava, Percutaneous Approach (ICD-10-PCS; 2020-11-12)
PROC: B548ZZA Ultrasonography of Superior Vena Cava, Guidance (ICD-10-PCS; 2020-11-12)
DX: I26.02 Saddle embolus of pulmonary artery with acute cor pulmonale (principal); J96.01 Acute respiratory failure with hypoxia; G93.41 Metabolic encephalopathy; I46.9 Cardiac arrest, cause unspecified; I21.4 Non-ST elevation (NSTEMI) myocardial infarction; J18.9 Pneumonia, unspecified organism; I50.31 Acute diastolic (congestive) heart failure; N17.9 Acute kidney failure, unspecified; E87.2 Acidosis; K92.2 Gastrointestinal hemorrhage, unspecified; I13.0 Hypertensive heart and chronic kidney disease with heart failure and stage 1 through stage 4 chronic kidney disease, or unspecified chronic kidney disease; D68.9 Coagulation defect, unspecified; I82.452 Acute embolism and thrombosis of left peroneal vein; I82.442 Acute embolism and thrombosis of left tibial vein; I45.10 Unspecified right bundle-branch block; I48.91 Unspecified atrial fibrillation; J04.10 Acute tracheitis without obstruction; B95.7 Other staphylococcus as the cause of diseases classified elsewhere; Z20.822 Contact with and (suspected) exposure to COVID-19; N18.9 Chronic kidney disease, unspecified; R13.12 Dysphagia, oropharyngeal phase; D64.9 Anemia, unspecified; M19.90 Unspecified osteoarthritis, unspecified site; D69.6 Thrombocytopenia, unspecified; I48.0 Paroxysmal atrial fibrillation
CPT/HCPCS: 36415; 36600; 37191; 37211; 37214; 70450; 71045; 71275; 74018; 74177; 76770; 80048; 80053; 80061; 80076; 80307; 81001; 82140; 82271; 82436; 82550; 82553; 82565; 82570; 82803; 82805; 82962; 83615; 83735; 83880; 84100; 84132; 84145; 84300; 84484; 85007; 85014; 85018; 85025; 85027; 85049; 85379; 85384; 85520; 85610; 85730; 86140; 86403; 86706; 86708; 86709; 86803; 86850; 86900; 86901; 86920; 87040; 87070; 87186; 87205; 87517; 93005; 93306; 93970; 94002; 94003; 94760; G0378; C1757; C1769; C1880; C9113; J0360; J0456; J0696; J1250; J1265; J1644; J1815; J2020; J2370; J2543; J2704; J2997; J3010; J3475; J3480; J7030; J7040; J7050; P9016; Q9967; U0003